=== PATIENT | male | born 1950 | race Caucasian/White ===

== ENCOUNTER 2017-03-15 10:00 | Outpatient (RCR) | payer MEDICARE, OTHER, SELFPAY ==
--- NOTE | 2017-02-25 09:26 | HP.PTEVAL ---
Patient's Visit Information DONNA COLEMAN is a 67 year old M referred to Physical Therapy by DO CHELSIE Mcnulty2 with a diagnosis of Back pain/Left knee pain. Date of Evaluation: 02/25/17 Physical Therapist: Camelia Duran - Visit Plan Frequency: 2-3x /Week Duration: 3 Weeks Plan: Focus on LE and core s/s. - Subjective Subjective: Patient reports right hip/back and left knee pain. Back/Hip has been bothering him about a year and half- insidious onset- Patient feels the pain is getting a little worse. The pain is located in the a little lower than the belt line- Agg: walking long distances. It comes and goes. Worst: 4/10 No Radiating pain- Describes pain as sharp/shooting at times. Eases: nothing that he is aware of. Best: 0/10. Once in awhile he will have numbness or feels like his right side gives out but that is rare. 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 Sleep: not disturbed- side mostly but does turn on his belly. Has had x-ray and MRI on the back in June. Knee: less than a year- insidious onset- knee seems to be getting a little worse. Worst: 4/10 Knee pain is above the joint stiffness. No radiating pain. Best: 0/10. Agg: walking long distances, getting up/down kneeling, stairs. Eases: get off of it. Describes dull achy pains. No N/T in the left side. X-rays which showed moderate OA. Sleep: occasionally will wake him up and is hard to get comfortable. Winter makes him mildly sedentary but plays golf 5-6x a week but has been riding a [employer]. PMHx: TIA (in June), knee scope but can't remember which one (10 years ago), eye surgery, HTN. Meds: HTN med, cholesterol medication. PMHx: was uploaded into the computer. Belongs to [facility]. - Objective Posture: FH, RS- can correct with verbal cues but does not maintain. Gait: no deviation noted. Stairs: no deviation asc/desc 8' recip no HR. HR/TR: able without incidence. SLS: 30 sec without LOB. ROM: WNL in all planes- no increase in s/s. Strength: Ankle: 5/5, Knee: 5/5 Hip: 4-/5 throughout Core: fair minus. Special Test: MICHAEL: positive, FADDIR: positive. Sensation/Reflex: WNL. Flex: HS: severe, Gastroc: moderate. Palpation: tender along medial/lateral joint line of the left knee, Greater troch and into the gluts on the right. - Goals Goal 1:: Patient will be I with HEP and progression Goal Time Frame: 4-6 Weeks Goal 2:: Patient will maintain proper posture t/o tx session to demo increased core s/s. Goal Time Frame: 4-6 Weeks Goal 3:: Patient will demo 5/5 strength in LE where deficit to ease ADL's. Goal Time Frame: 4-6 Weeks Goal 4:: Patient will demo moderate flexibility in all deficit areas Goal Time Frame: 4-6 Weeks - Rehabilitation Potential Physical Therapy Diagnosis: Patient presents with hypomobility- he has decreased strength and muscular endurance leading to poor posture and increased pain with ADL's. Rehabilitation Potential: Good - Anticipated Interventions Patient/Client Instruction: Educate patient on: Benefits of Fitness Program For the Purpose of:: To improve ability to perform ADL's Therapeutic Exercise to Include: Strength training, Endurance training, Balance training, Agility training, Body mechanics, Postural training, Flexibilty training, Passive ROM, Active ROM, Dynamic Lumbar Stabilization, Scapular Strength/Stabilization For the Purpose of:: To improve muscle performance and motor function TENS: Yes Cryotherapy (ice pack, ice massage): Yes Thermo therapy (hot pack): Yes Ultrasound (thermal/non thermal): Yes For the Purpose of:: To decrease pain Thank you for the opportunity to evaluate your patient. For Medicare and Medicare HMO plans, please review the plan of care and approve it. It will need to be FAXED BACK to us at [phone] for Medicare purposes. Please let me know if there are questions or concerns regarding this plan of care. Physician Signature: Date:
--- NOTE | 2017-03-15 10:34 | HP.PTDCSUM ---
HP - PT D/C Summary It has been my pleasure to treat DONNA COLEMAN under orders from Joaquín Benavides DO, for the diagnosis of Back pain/Left knee pain for a total of 9 visit(s). Discharge Date: Please see the following information for a summary of their discharge status. - Subjective Subjective: Patient reports the ROM in the knee is better and it doesn't hurt as much and the back has been pretty good. Feels that his knee is 80% better and the back is 80% better. Just feels stiff. - Pain Back Pain Intensity (Out of 10): 0 left knee Pain Intensity (Out of 10): 0 - Overall Improvement % Improvement: 80 - Objective Objective/Function: Posture: good throughout. Gait: no deviation noted. ROM: WFL in all planes. Stairs:asc/desc 8 recip with no HR. Strength: Core: fair plus, LE: 5/5 - Goals Goal 1:: Patient will be I with HEP and progression Goal Progress: Goal Met Goal 2:: Patient will maintain proper posture t/o tx session to demo increased core s/s. Goal Progress: Goal Met Goal 3:: Patient will demo 5/5 strength in LE where deficit to ease ADL's. Goal Progress: Goal Met Goal 4:: Patient will demo moderate flexibility in all deficit areas Goal Progress: Goal Met - Plan Plan: Cont with POC - D/C Information If there are questions or concerns regarding this patient's physical therapy, please feel free to call me at [phone]. Thank you for the referral of this patient. Sincerely, Camelia Duran
== END 2017-03-15 11:21 | disposition home or self-care (01) ==
LOC: PT 10:00
PROVIDERS: Family Provider Family Medicine; PCP Family Medicine; Visit Provider Family Medicine
DX: M25.562 Pain in left knee (principal); M54.5 Low back pain
CPT/HCPCS: 97110; 97162; 97530

== ENCOUNTER → 2017-04-29 08:59 | Outpatient (CLI) | payer MEDICARE, OTHER, SELFPAY ==
[2017-04-29 12:19] LABS: Absolute Lymphocyte Count 2.05 X10^3/ul (0.83-4.51); Absolute Neutrophil Count 3.1 X10^3/uL (2.0-7.7); Basophil# 0.02 X10^3/uL; Basophil% 0.3 % (0-1); Eosinophil# 0.13 X10^3/uL; Eosinophils% 2.2 % (0-5); Hematocrit 43.8 % (40-54); Hemoglobin 14.3 g/dl (13.0-16.5); Lymphocyte # 2.05 X10^3/ul (4.0); Lymphocyte % 34.6 % (19-41); Mean Corp Hgb Conc 32.6 g/gl (32-36); Mean Corpuscular Hgb 31.3 pg (27.0-32.0); Mean Corpuscular Volume 95.8 fL (80-94); Mean Platelet Vol. 12.3 fl (6.2-12.0); Monocyte# 0.53 X10^3/uL; Neutrophil # 3.14 X10^3/uL (2.7-7.7); Neutrophil % 53.1 % (47-70); Platelet Count 156 K/mm3 (150-450); RBC Distribution Width CV 12.1 % (11.6-14.6); RBC Distribution Width SD 42.5 fl (35.1-43.9); Red Blood Count 4.57 M/mm3 (4.6-6.2); White Blood Count 5.9 K/mm3 (4.4-11.0)
[2017-04-29 12:31] LABS: POSITIVE COUNT NO; POSITIVE DIFFERENTIAL NO; POSITIVE MORPHOLOGY NO
[2017-04-29 12:53] LABS: AST(SGOT) 41 U/L (15-37); Alanine Aminotransfer ALT/SGPT 51 U/L (16-61); Albumin, Serum 3.3 g/dL (3.2-5.0); Alkaline Phosphatase 47 U/L (45-117); Anion Gap 9 (5-15); BUN 14 mg/dL (7-18); BUN/Creat Ratio 11.9 RATIO (10-20); Calcium,Total 8.5 mg/dL (8.5-10.1); Chloride 105 mmol/L (98-107); Cholesterol 96 mg/dL (200); Creatinine, Serum 1.18 mg/dL (0.70-1.30); EST Glomerular Filtration Rate 65 mL/min (>60); Est Glom Filt Rate - Afr Amer 79 mL/min (>60); Globulin 3.4 g/dL (2.2-4.2); Glucose 100 mg/dL (74-106); High Density Lipoprotein 31 mg/dL; Potassium 4.3 mmol/L (3.5-5.1); Protein, Total 6.7 g/dL (6.4-8.2); Sodium Level 142 mmol/L (136-145); T4 Free Direct 1.38 ng/dL (0.76-1.46); Thyroid Stim Hormone (TSH) 2.39 uIU/mL (0.358-3.74); Triglycerides 106 mg/dL; Very Low Density Lipoprotein 21 mg/dL (5-40)
== END ==
PROVIDERS: Family Provider Family Medicine; PCP Family Medicine; Visit Provider Family Medicine
DX: I10 Essential (primary) hypertension (principal); E07.9 Disorder of thyroid, unspecified; E78.5 Hyperlipidemia, unspecified; R53.83 Other fatigue; Z51.81 Encounter for therapeutic drug level monitoring
CPT/HCPCS: 36415; 80053; 80061; 84439; 84443; 85025

== ENCOUNTER 2017-10-27 14:50 | Observation (INO) | payer MEDICARE, OTHER, SELFPAY ==
[2017-10-27] VITALS (18 sets, daily range): BP systolic 132–180; BP diastolic 72–91; PULSE 56–85; RESP 14–155; TEMP 36.7–36.8; O2SAT 93–98; BMI 32.0; BMI 30.2; BMI 30.3
--- NOTE | 2017-10-27 15:08 | EKG12_ITS ---
Test Reason : Blood Pressure : / mmHG Vent. Rate : 074 BPM Atrial Rate : 074 BPM P-R Int : 188 ms QRS Dur : 112 ms QT Int : 394 ms P-R-T Axes : 042 001 038 degrees QTc Int : 437 ms Normal sinus rhythm Incomplete right bundle branch block Abnormal ECG Confirmed by DIVINA URRUTIA, MEGA ([id number]), electronic news gathering editor SHALOM HUGHES ([id number]) on 10/30/2017 2:35:28 PM Referred By: Emily Ramirez Confirmed By:MEGA MURCIA MD
--- NOTE | 2017-10-27 15:08 | RAD_ITS ---
STUDY: X-RAY CHEST REASON FOR EXAM: Male, 67 years old. Numbness TECHNIQUE: Frontal view of the chest COMPARISON: None. FINDINGS: The lungs are clear. There are no pleural effusions. There is no pneumothorax. The heart is normal in size. The visualized osseous structures are within normal limits. RAD/Chest 1 View IMPRESSION: No acute thoracic pathology. Electronically Signed: Silvano Sullivan, at 16:44 EDT Tel , Service support ,
--- NOTE | 2017-10-27 15:08 | CT_ITS ---
STUDY: CT BRAIN WITHOUT CONTRAST REASON FOR EXAM: Male, 67 years old. Dizziness. RADIATION DOSAGE (If Supplied By Facility): CTDIvol = ( 44.99 ) mGy, DLP = ( 812.98 ) mGycm TECHNIQUE: Transaxial CT imaging of the brain was performed without administration of intravenous contrast material. Individualized dose optimization techniques were used for this CT. COMPARISON: 07/03/2016 FINDINGS: There is no acute bleed or infarct. There are stable chronic ischemic and atrophic changes. The ventricles are normal in configuration. There is no hydrocephalus. The visualized paranasal sinuses are clear. The mastoid air cells are well aerated. There is no skull fracture. CT/Brain/Head without Contrast IMPRESSION: Stable chronic ischemic and atrophic changes. No acute intracranial abnormality. Electronically Signed: Silvano Sullivan, at 16:09 EDT Tel , Service support ,
[2017-10-27 15:11] LABS: Bedside Glucose 144 mg/dL (70-110)
--- NOTE | 2017-10-27 15:17 | ED.VISSUMM ---
- ER Visit Summary Date of Service: 10/27/17 Chief Complaint: [Numbness and tingling to right arm] History of Present Illness: The patient is a 67 M [presents the emergency department with symptoms that started approximately 35 minutes prior to arrival in the department. Patient states that he had just finished playing golf and was eating lunch when he started feeling like he was hearing an echo in his head when he would speak. Patient noted that his left arm was numb and tingly but did not notice any weakness. There is no paresthesias of his face or lower extremities. Patient states that he felt slightly nauseated and became diaphoretic. Patient is concerned because about a year ago he had TIAs. He denies any headache. He denies any falls or head injuries. He denies any alcohol intake. Patient states currently feels much improved and his symptoms have resolved. Patient states he has had a little bit of a cold over the last for 5 days. Patient has been taking some zinc.] Physical Examination: [HEENT-PERRLA, EOMI. Cranial nerves II through XII grossly intact. TMs clear. Mucous membranes moist. No adenopathy. Cardiovascular-regular rate and rhythm without murmur or ectopy Lungs-clear to auscultation, chest wall stable without crepitus or subcu emphysema Abdomen-normoactive bowel sounds, soft, nontender, no rebound or rigidity, no peritoneal signs. Neuro ehfa-[id number]-wsws and heel pizano testing within normal limits, negative Romberg, negative pronator, fundi benign. NIH stroke scale was 0. Extremities-intact ?4, normal range of motion, normal pulses, atraumatic] Test Results: [EKG obtained on arrival showed a sinus rhythm with a ventricular rate of 74 bpm with no acute ST segment changes. CBC with her showing of 8.1, hemoglobin 14.8, hematocrit 43, platelets 154. Chemistries unremarkable. INR was 1.0 and PTT was 29.9. Troponin was less than 0.015. CT scan of the brain showed some chronic ischemic changes otherwise nothing acute. CTA of the head and neck showed nothing acute.] Emergency Department Course and Treatment: [Patient case was discussed with was on-call for neurology. Patient is not a TPA candidate as symptoms have resolved and his NIH stroke scale is 0. Patient case discussed with hospitalist will evaluate patient for admission] Treatment Plan: [Admit for further workup and evaluation] Disposition: [Admit] Impression: [TIA] This note was generated with [employer] dictation software. It may contain incorrect words, spelling, and punctuation that were not noted in review of the chart prior to signing ED Disposition - Plan for ED Patient: Chief Complaint: Numb/Ting Referrals: Liseth Del Valle DO [Primary Care Provider] -
--- NOTE | 2017-10-27 15:30 | CT_ITS ---
STUDY: CTA NECK WITH CONTRAST REASON FOR EXAM: Male, 67 years old. Dizziness. RADIATION DOSAGE (If Supplied By Facility): CTDIvol = ( 21.08 ) mGy, DLP = ( 691.93 ) mGycm TECHNIQUE: CT angiography with multi-detector data acquisition was performed from the aortic arch to the skull base following intravenous administration of 100 ml of Isovue 370 contrast. MIP images were reconstructed from the axial data set. Post-processing of the angiographic images was performed, with multiplanar reformation and 3D reconstruction. Individualized dose optimization techniques were used for this CT. COMPARISON: CTA 07/03/2016. CT head 10/27/2017. FINDINGS: AORTIC ARCH: Normal visualized aortic arch. Normal origins of the brachiocephalic, left common carotid, and left subclavian arteries. RIGHT CAROTID ARTERIES: Normal right common carotid artery (CCA). Normal right common carotid bulb. Normal origin of the right internal carotid (ICA) artery without a hemodynamically significant stenosis. Normal visualized cervical portion of the right internal carotid artery. Normal origin of the right external carotid artery (ECA). LEFT CAROTID ARTERIES: Normal left common carotid artery (CCA). There is mild atherosclerotic plaque formation without narrowing of the left carotid bulb. Normal origin of the left internal carotid (ICA) artery without a hemodynamically significant stenosis. Normal visualized cervical portion of the left internal carotid artery. Normal origin of the left external carotid artery (ECA). VERTEBRAL ARTERIES: There is a right dominant vertebral artery. Vertebral arteries are patent bilaterally, with no dissection, stenosis, or occlusion. IMPRESSION: 1. Mild atherosclerotic plaque of the left carotid bulb. No stenosis. 2. Patent vertebral and carotid arteries with no dissection, stenosis or occlusion. Electronically Signed: Rosmery Lira MD at 17:34 EDT Tel , Service support , STUDY: CTA OF THE BRAIN REASON FOR EXAM: Male, 67 years old. Dizziness. RADIATION DOSAGE (If Supplied By Facility): CTDIvol = ( ) mGy, DLP = ( ) mGycm TECHNIQUE: CT angiography was performed with a multi-detector CT scanner. Data acquisition was obtained from the skull base through the vertex following intravenous administration of ml of . MIP images were reconstructed from the axial data set. Post-processing of the angiographic images was performed, with multiplanar reformation and 3D reconstruction. Individualized dose optimization techniques were used for this CT. COMPARISON: None. FINDINGS: Normal bilateral petrous carotid arteries. There is calcified plaque formation of the right cavernous carotid artery, without a cross-sectional luminal stenosis. Normal left cavernous carotid artery with a normal supraclinoid bifurcation. Normal right A1 segment of the anterior cerebral artery. Normal left A1 segment of the anterior cerebral artery. Normal intact anterior communicating artery (ACOM). Normal bilateral A2 segments of the anterior cerebral arteries. Normal right M1 and M2 segments of the middle cerebral arteries, with a normal M1 bifurcation. Normal left M1 and M2 segments of the middle cerebral arteries, with a normal M1 bifurcation. There is non-visualization of the right posterior communicating artery (PCOM). Normal left posterior communicating artery (PCOM). Dominant right vertebral artery. Left vertebral artery terminates in the posterior inferior cerebellar artery. Normal basilar artery with a normal basilar bifurcation. The visualized bilateral superior cerebellar (SCA) arteries are normal. Normal bilateral P1, P2 and visualized P3 segments of the posterior cerebral arteries. There is no demonstrated aneurysm of the [place] of [place]. CT/CTA Neck W/WO Contrast IMPRESSION: No demonstrated aneurysm or significant stenosis. Electronically Signed: Rosmery Lira MD at 17:36 EDT Tel , Service support ,
--- NOTE | 2017-10-27 15:30 | CT_ITS ---
STUDY: CTA OF THE BRAIN REASON FOR EXAM: Male, 67 years old. Dizziness RADIATION DOSAGE (If Supplied By Facility): CTDIvol = ( 21.08 ) mGy, DLP = ( 691.93 ) mGycm TECHNIQUE: CT angiography was performed with a multi-detector CT scanner. Data acquisition was obtained from the skull base through the vertex following intravenous administration of 100 ml of Isovue-370. MIP images were reconstructed from the axial data set. Post-processing of the angiographic images was performed, with multiplanar reformation and 3D reconstruction. Individualized dose optimization techniques were used for this CT. COMPARISON: None. FINDINGS: Normal bilateral petrous carotid arteries. Normal right cavernous carotid artery with a normal supraclinoid bifurcation. Normal left cavernous carotid artery with a normal supraclinoid bifurcation. Normal right A1 segments of the anterior cerebral artery. Normal left A1 segments of the anterior cerebral artery. Normal intact anterior communicating artery (ACOM). Normal bilateral A2 segments of the anterior cerebral arteries. Normal right M1 and M2 segments of the middle cerebral arteries, with a normal M1 bifurcation. Normal left M1 and M2 segments of the middle cerebral arteries, with a normal M1 bifurcation. Normal right posterior communicating artery (PCOM). Normal left posterior communicating artery (PCOM). Normal bilateral vertebral arteries. Normal basilar artery with a normal basilar bifurcation. The visualized bilateral superior cerebellar (SCA) arteries are normal. Normal bilateral P1, P2 and visualized P3 segments of the posterior cerebral arteries. There is no demonstrated aneurysm of the [place] of [place]. There is no demonstrated abnormality of the visualized brain. CT/CTA Head W/WO Contrast IMPRESSION: Normal [place] of [place] without a demonstrated aneurysm or hemodynamically significant stenosis. Electronically Signed: Parker Mancuso MD at 16:41 EDT , Service support ,
[2017-10-27 15:33] LABS: Absolute Lymphocyte Count 1.89 X10^3/ul (0.83-4.51); Absolute Neutrophil Count 5.7 X10^3/uL (2.0-7.7); Basophil# 0.02 X10^3/uL; Basophil% 0.2 % (0-1); Eosinophil# 0.02 X10^3/uL; Eosinophils% 0.2 % (0-5); Hematocrit 42.8 % (40-54); Hemoglobin 14.8 g/dl (13.0-16.5); Lymphocyte # 1.89 X10^3/ul (4.0); Lymphocyte % 23.3 % (19-41); Mean Corp Hgb Conc 34.6 g/gl (32-36); Mean Corpuscular Hgb 32.5 pg (27.0-32.0); Mean Corpuscular Volume 93.9 fL (80-94); Mean Platelet Vol. 11.1 fl (6.2-12.0); Monocyte# 0.46 X10^3/uL; Monocyte% 5.7 % (0-10); Neutrophil % 70.4 % (47-70); POSITIVE COUNT NO; POSITIVE DIFFERENTIAL NO; POSITIVE MORPHOLOGY NO; Platelet Count 154 K/mm3 (150-450); RBC Distribution Width CV 12.1 % (11.6-14.6); RBC Distribution Width SD 41.1 fl (35.1-43.9); Red Blood Count 4.56 M/mm3 (4.6-6.2); White Blood Count 8.1 K/mm3 (4.4-11.0)
[2017-10-27 15:41] LABS: Anion Gap 9 (5-15); BUN 25 mg/dL (7-18); BUN/Creat Ratio 20.5 RATIO (10-20); Calcium,Total 8.5 mg/dL (8.5-10.1); Chloride 109 mmol/L (98-107); Creatinine, Serum 1.22 mg/dL (0.70-1.30); EST Glomerular Filtration Rate 63 mL/min (>60); Est Glom Filt Rate - Afr Amer 76 mL/min (>60); Estimated Creatinine Clearance 64.49 ml/min; Glucose 139 mg/dL (74-106); Potassium 4.1 mmol/L (3.5-5.1); Prothrombin Time (Protime)PT. 13.5 SECONDS (11.7-14.9); Sodium Level 142 mmol/L (136-145)
[2017-10-27 15:42] LABS: Partial Thromboplast Time 29.9 Seconds (24.1-36.2)
--- NOTE | 2017-10-27 19:09 | PCM.HP.STD ---
Problem List (1) TIA (transient ischemic attack) Status: Acute Qualifiers: Transient cerebral ischemia type: unspecified Qualified Code(s): G45.9 - Transient cerebral ischemic attack, unspecified (2) HLD (hyperlipidemia) Status: Chronic Qualifiers: Hyperlipidemia type: pure hypercholesterolemia Qualified Code(s): E78.00 - Pure hypercholesterolemia, unspecified; E78.0 - Pure hypercholesterolemia (3) Hypothyroidism Status: Chronic Qualifiers: Hypothyroidism type: acquired Qualified Code(s): E03.9 - Hypothyroidism, unspecified (4) CVA (cerebral vascular accident) Status: Chronic Qualifiers: Laterality of affected vessel: unspecified Comment: MRI brain 07/03/16 with focal subcortical acute infarcts within the high right frontal border zone region and the left posterior border zone region abutting the central sulcus likely within the central gyrus. (5) HTN (hypertension) Status: Chronic Qualifiers: Hypertension type: essential hypertension Qualified Code(s): I10 - Essential (primary) hypertension History of Present Illness Date of Admission: 10/27/17 Chief Complaint: RUE paresthesias The patient is a 67 y/o M w/ PMHx: HTN, HLD, Hypothyroidism, Obesity, Prior CVA (MRI brain 07/03/16 with focal subcortical acute infarcts within the high right frontal border zone region and the left posterior border zone region abutting the central sulcus likely within the central gyrus) who presents to the [facility] ED on 10/27/17 with history of golfing through the day, sitting down to lunch at ~ 14:30 with onset at that time of sensation of echoing of his voice in his head when he spoke with following onset right upper extremity numbness, diaphoresis and nausea which last approximately 25 minutes and resolved upon ED presentation. is present in the emergency room and noted that with onset of these findings he was also very pale. She notes that he appears to currently be at his baseline. The emergency room workup included T 98.2, heart rate 76, BP 151/80, respiratory rate 18, 96% on room air, unremarkable CBC, unremarkable coags, BMP with chloride 109, BUN/creatinine 25 1.22, glucose 139, last hemoglobin A1c noted 07/03/16 5.7%, troponin less than 0.015, EKG with no acute findings, ET head with stable chronic ischemic and atrophic changes with no acute findings on chest x-ray with no acute findings, CTA head with normal [place] of [place] without any demonstrated aneurysm or significant stenosis, CT of the neck with no demonstrated aneurysm or significant stenosis. Neurology was consulted per the emergency room and had requested CTA head and neck to be obtained. Past Medical History Past Medical History (Chronic Problems): Chronic Problems HLD (hyperlipidemia) (Chronic) Hypothyroidism (Chronic) CVA (cerebral vascular accident) (Chronic) MRI brain 07/03/16 with focal subcortical acute infarcts within the high right frontal border zone region and the left posterior border zone region abutting the central sulcus likely within the central gyrus. HTN (hypertension) (Chronic) Allergies Sulfa (Sulfonamide Antibiotics) Allergy (Verified 10/27/17 14:53) PT CAN'T REMEMBER Home Medications: Ambulatory Orders Medication Instructions Recorded Levothyroxine [Synthroid] 175 mcg PO DAILY 07/03/16 Triamcinolone 0.1% Ointment 1 applic TOPICAL DAILY 07/03/16 [Kenalog] Amlodipine [Norvasc] 5 mg PO DAILY #90 tablet 07/05/16 Aspirin [Aspirin, Baby] 81 mg PO DAILY@0800 #90 tab.chew 07/05/16 Atorvastatin Calcium [Lipitor] 40 mg PO DAILY #90 tablet 07/05/16 Surgical History: - - Arthroscopic knee surgery, left eye muscle surgery, Lasix eye surgery, bilateral carpal tunnel surgery, tonsillectomy. Psychiatric History: No pertinent psych hx Lives: Spouse/ Significant Other Smoking Status: Never smoker Tobacco Use: Non-smoker Alcohol: None Drugs: None - *Family History Maternal History Items: Cancer, Stroke Paternal History Items: Heart Disease Sibling History Items: Heart Disease - Brother of [place] Review of Systems Constitutional: Denies: Chills, Fever, Weight Change HEENT: Denies: Head Aches, Sinus Congestion, Sinus Drainage Cardiovascular: Denies: Chest Pain, Palpitations Respiratory: Denies: Cough, Shortness of breath at rest, Sputum production Gastrointestinal: Denies: Abdominal Pain, Nausea, Vomiting Genitourinary: Denies: Dysuria Musculoskeletal: Denies: Joint Pain, Joint Tenderness Skin: Denies: Rash, Wounds Neurological: Reports: Numbness, Tingling. Denies: Focal weakness Psychiatric: Denies: Anxiety, Depression, Homicidal Ideations, Suicidal Ideations Hematologic/ Lymphatic: Denies: Easy Bruising, Easy Bleeding VTE Information - Inpt Only VTE Present on Admission: No VTE Mechan Device Prophylaxis: SCD's VTE Pharm Prophylaxis ordered?: Yes Subjective: Seated upright in ED bed, no acute distress, notes complete continued resolution of prior symptoms. Objective: Physical Examination: General: awake, alert, oriented x 3 and cooperative, seated upright in the ED bed in no apparent distress. Skin: normal color, turgor, no icterus, cyanosis. HEENT: AT/NC, EOMI, PERRLA, MMM, no carotid bruits or JVD noted. Lungs: CTA bilaterally, moderate effort, mild decrease BL bases, no rales, ronchi or wheezing. Heart: regular rate and rhythm; no gallop, rub audible. Abdomen: soft, obese, NTTP, ND, normal BS, no HSM. Extremities: no cyanosis, clubbing, or edema. Neurological: patient awake, alert, oriented x 3; cognitive function intact; pupils equally reactive to light and accomodation; cranial nerves II-XII grossly normal, moving all 4 extremities, no focal deficits, strength preserved, negative Babinski, sensation intact, FTN and HTN appropriate. Psychiatric: affect appears normal, no acute evidence of depressive or anxiety feelings. - Physical Exam Vital Signs Temp Pulse Resp BP Pulse Ox 98.2 F 71 155 H 142/86 H 94 10/27/17 14:54 10/27/17 18:33 10/27/17 18:33 10/27/17 18:33 10/27/17 18:33 Oxygen Delivery Method Room Air Weight: 236 lb 5.369 oz Body Mass Index (BMI) 32.0 Finger Stick Blood Glucose 144 Laboratory Tests Past 24 Hrs 10/27/17 10/27/17 10/27/17 15:01 15:01 15:01 WBC 8.1 RBC 4.56 L Hgb 14.8 Hct 42.8 MCV 93.9 MCH 32.5 H MCHC 34.6 RDW 12.1 RDW Differential 41.1 Plt Count 154 MPV 11.1 Immature Gran % (Auto) 0.200 Neut % (Auto) 70.4 H Lymph % (Auto) 23.3 Payette % (Auto) 5.7 Eos % (Auto) 0.2 Baso % (Auto) 0.2 Absolute Neuts (auto) 5.7 Absolute Lymphs (auto) 1.89 Total Counted Not Reportable PT 13.5 INR 1.0 APTT 29.9 Sodium 142 Potassium 4.1 Chloride 109 H Carbon Dioxide 24.0 Anion Gap 9 BUN 25 H Creatinine 1.22 Estim Creat Clear Calc 64.49 Est GFR (MDRD) Af Amer 76 Est GFR (MDRD) Non-Af 63 BUN/Creatinine Ratio 20.5 H Glucose 139 H Calcium 8.5 Troponin I < 0.015 POC Glucose 10/27/17 15:04 POC Glucose 144 H Assessment/Plan All Active Problems TIA (transient ischemic attack) (Acute) The patient is a 67 y/o M w/ PMHx: HTN, HLD, Hypothyroidism, Obesity, Prior CVA (MRI brain 07/03/16 with focal subcortical acute infarcts within the high right frontal border zone region and the left posterior border zone region abutting the central sulcus likely within the central gyrus) who presents to the [facility] ED on 10/27/17 with history of golfing through the day, sitting down to lunch at ~ 14:30 with onset at that time of sensation of echoing of his voice in his head when he spoke with following onset right upper extremity numbness, diaphoresis and nausea which last approximately 25 minutes and resolved upon ED presentation. (1) RUE Paresthesias, Transient w/ Abnormal Echoing in his brain concerning for TIA/CVA: ED workup included T 98.2, heart rate 76, BP 151/80, respiratory rate 18, 96% on room air, unremarkable CBC, unremarkable coags, BMP with chloride 109, BUN/creatinine 25 1.22, glucose 139, last hemoglobin A1c noted 07/03/16 5.7%, troponin less than 0.015, EKG with no acute findings, ET head with stable chronic ischemic and atrophic changes with no acute findings on chest x-ray with no acute findings, CTA head with normal [place] of [place] without any demonstrated aneurysm or significant stenosis, CT of the neck with no demonstrated aneurysm or significant stenosis. Will admit to PCU, will obtain MRI Brain, request repeat ECHO as performed year prior, PT/OT/Speech/Nutrition evaluation per protocol. Will continue consult Neurology for evaluation. Given resolution of sxs, continue HTN regimenallow permissive HTN, maintain on asa and add plavix, continue statin w/ AM FLP, fall precautions. TSH and mag pending. Additionally given atypical presentation, will obtain repeat EKG in AM, cycle cardiac enzymes. (2) Hypothyroidism: Continue home synthroid regimen, TSH pending. 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 (3) Hypertension: Continue home regimen including Norvasc, PRN hydralazine. (4) Hyperlipidemia: Continue home statin regimen. AM FLP. (5) Obesity: Weight loss and lifestyle changes encouraged. (6) DVT prophylaxis: SCD, Lovenox. Code Visit OBSV E&M: 24805 Initial observation care L3
--- NOTE | 2017-10-27 19:14 | HP.PCM_ITS ---
Problem List (1) TIA (transient ischemic attack) Status: Acute Qualifiers: Transient cerebral ischemia type: unspecified Qualified Code(s): G45.9 - Transient cerebral ischemic attack, unspecified (2) HLD (hyperlipidemia) Status: Chronic Qualifiers: Hyperlipidemia type: pure hypercholesterolemia Qualified Code(s): E78.00 - Pure hypercholesterolemia, unspecified; E78.0 - Pure hypercholesterolemia (3) Hypothyroidism Status: Chronic Qualifiers: Hypothyroidism type: acquired Qualified Code(s): E03.9 - Hypothyroidism, unspecified (4) CVA (cerebral vascular accident) Status: Chronic Qualifiers: Laterality of affected vessel: unspecified Comment: MRI brain 07/03/16 with focal subcortical acute infarcts within the high right frontal border zone region and the left posterior border zone region abutting the central sulcus likely within the central gyrus. (5) HTN (hypertension) Status: Chronic Qualifiers: Hypertension type: essential hypertension Qualified Code(s): I10 - Essential (primary) hypertension History of Present Illness Date of Admission: 10/27/17 Chief Complaint: RUE paresthesias The patient is a 67 y/o M w/ PMHx: HTN, HLD, Hypothyroidism, Obesity, Prior CVA (MRI brain 07/03/16 with focal subcortical acute infarcts within the high right frontal border zone region and the left posterior border zone region abutting the central sulcus likely within the central gyrus) who presents to the [facility] ED on 10/27/17 with history of golfing through the day, sitting down to lunch at ~ 14:30 with onset at that time of sensation of echoing of his voice in his head when he spoke with following onset right upper extremity numbness, diaphoresis and nausea which last approximately 25 minutes and resolved upon ED presentation. is present in the emergency room and noted that with onset of these findings he was also very pale. She notes that he appears to currently be at his baseline. The emergency room workup included T 98.2, heart rate 76, BP 151/80, respiratory rate 18, 96% on room air, unremarkable CBC, unremarkable coags, BMP with chloride 109, BUN/creatinine 25 1.22, glucose 139, last hemoglobin A1c noted 07/03/16 5.7%, troponin less than 0.015, EKG with no acute findings, ET head with stable chronic ischemic and atrophic changes with no acute findings on chest x-ray with no acute findings, CTA head with normal [place] without any demonstrated aneurysm or significant stenosis, CT of the neck with no demonstrated aneurysm or significant stenosis. Neurology was consulted per the emergency room and had requested CTA head and neck to be obtained. Past Medical History Past Medical History (Chronic Problems): Chronic Problems HLD (hyperlipidemia) (Chronic) Hypothyroidism (Chronic) CVA (cerebral vascular accident) (Chronic) MRI brain 07/03/16 with focal subcortical acute infarcts within the high right frontal border zone region and the left posterior border zone region abutting the central sulcus likely within the central gyrus. HTN (hypertension) (Chronic) Allergies Sulfa (Sulfonamide Antibiotics) Allergy (Verified 10/27/17 14:53) PT CAN'T REMEMBER Home Medications: Ambulatory Orders Medication Instructions Recorded Levothyroxine [Synthroid] 175 mcg PO DAILY 07/03/16 Triamcinolone 0.1% Ointment 1 applic TOPICAL DAILY 07/03/16 [Kenalog] Amlodipine [Norvasc] 5 mg PO DAILY #90 tablet 07/05/16 Aspirin [Aspirin, Baby] 81 mg PO DAILY@0800 #90 tab.chew 07/05/16 Atorvastatin Calcium [Lipitor] 40 mg PO DAILY #90 tablet 07/05/16 Surgical History: - - Arthroscopic knee surgery, left eye muscle surgery, Lasix eye surgery, bilateral carpal tunnel surgery, tonsillectomy. Psychiatric History: No pertinent psych hx Lives: Spouse/ Significant Other Smoking Status: Never smoker Tobacco Use: Non-smoker Alcohol: None Drugs: None - *Family History Maternal History Items: Cancer, Stroke Paternal History Items: Heart Disease Sibling History Items: Heart Disease - Brother of [place] Review of Systems Constitutional: Denies: Chills, Fever, Weight Change HEENT: Denies: Head Aches, Sinus Congestion, Sinus Drainage Cardiovascular: Denies: Chest Pain, Palpitations Respiratory: Denies: Cough, Shortness of breath at rest, Sputum production Gastrointestinal: Denies: Abdominal Pain, Nausea, Vomiting Genitourinary: Denies: Dysuria Musculoskeletal: Denies: Joint Pain, Joint Tenderness Skin: Denies: Rash, Wounds Neurological: Reports: Numbness, Tingling. Denies: Focal weakness Psychiatric: Denies: Anxiety, Depression, Homicidal Ideations, Suicidal Ideations Hematologic/ Lymphatic: Denies: Easy Bruising, Easy Bleeding VTE Information - Inpt Only VTE Present on Admission: No VTE Mechan Device Prophylaxis: SCD's VTE Pharm Prophylaxis ordered?: Yes Subjective: Seated upright in ED bed, no acute distress, notes complete continued resolution of prior symptoms. Objective: Physical Examination: General: awake, alert, oriented x 3 and cooperative, seated upright in the ED bed in no apparent distress. Skin: normal color, turgor, no icterus, cyanosis. HEENT: AT/NC, EOMI, PERRLA, MMM, no carotid bruits or JVD noted. Lungs: CTA bilaterally, moderate effort, mild decrease BL bases, no rales, ronchi or wheezing. Heart: regular rate and rhythm; no gallop, rub audible. Abdomen: soft, obese, NTTP, ND, normal BS, no HSM. Extremities: no cyanosis, clubbing, or edema. Neurological: patient awake, alert, oriented x 3; cognitive function intact; pupils equally reactive to light and accomodation; cranial nerves II-XII grossly normal, moving all 4 extremities, no focal deficits, strength preserved , negative Babinski, sensation intact, FTN and HTN appropriate. Psychiatric: affect appears normal, no acute evidence of depressive or anxiety feelings. - Physical Exam Vital Signs Temp Pulse Resp BP Pulse Ox 98.2 F 71 155 H 142/86 H 94 10/27/17 14:54 10/27/17 18:33 10/27/17 18:33 10/27/17 18:33 10/27/17 18:33 Oxygen Delivery Method Room Air Weight: 236 lb 5.369 oz Body Mass Index (BMI) 32.0 Finger Stick Blood Glucose 144 Laboratory Tests Past 24 Hrs 10/27/17 10/27/17 10/27/17 15:01 15:01 15:01 WBC 8.1 RBC 4.56 L Hgb 14.8 Hct 42.8 MCV 93.9 MCH 32.5 H MCHC 34.6 RDW 12.1 RDW Differential 41.1 Plt Count 154 MPV 11.1 Immature Gran % (Auto) 0.200 Neut % (Auto) 70.4 H Lymph % (Auto) 23.3 Dane % (Auto) 5.7 Eos % (Auto) 0.2 Baso % (Auto) 0.2 Absolute Neuts (auto) 5.7 Absolute Lymphs (auto) 1.89 Total Counted Not Reportable PT 13.5 INR 1.0 APTT 29.9 Sodium 142 Potassium 4.1 Chloride 109 H Carbon Dioxide 24.0 Anion Gap 9 BUN 25 H Creatinine 1.22 Estim Creat Clear Calc 64.49 Est GFR (MDRD) Af Amer 76 Est GFR (MDRD) Non-Af 63 BUN/Creatinine Ratio 20.5 H Glucose 139 H Calcium 8.5 Troponin I < 0.015 POC Glucose 10/27/17 15:04 POC Glucose 144 H Assessment/Plan All Active Problems TIA (transient ischemic attack) (Acute) The patient is a 67 y/o M w/ PMHx: HTN, HLD, Hypothyroidism, Obesity, Prior CVA (MRI brain 07/03/16 with focal subcortical acute infarcts within the high right frontal border zone region and the left posterior border zone region abutting the central sulcus likely within the central gyrus) who presents to the [facility] ED on 10/27/17 with history of golfing through the day, sitting down to lunch at ~ 14:30 with onset at that time of sensation of echoing of his voice in his head when he spoke with following onset right upper extremity numbness, diaphoresis and nausea which last approximately 25 minutes and resolved upon ED presentation. (1) RUE Paresthesias, Transient w/ Abnormal Echoing in his brain concerning for TIA/CVA: ED workup included T 98.2, heart rate 76, BP 151/80, respiratory rate 18, 96% on room air, unremarkable CBC, unremarkable coags, BMP with chloride 109, BUN/creatinine 25 1.22, glucose 139, last hemoglobin A1c noted 5.7%, troponin less than 0.015, EKG with no acute findings, ET head with stable chronic ischemic and atrophic changes with no acute findings on chest x- ray with no acute findings, CTA head with normal [place] without any demonstrated aneurysm or significant stenosis, CT of the neck with no demonstrated aneurysm or significant stenosis. Will admit to PCU, will obtain MRI Brain, request repeat ECHO as performed year prior, PT/OT/Speech/Nutrition evaluation per protocol. Will continue consult Neurology for evaluation. Given resolution of sxs, continue HTN regimenallow permissive HTN, maintain on asa and add plavix, continue statin w/ AM FLP, fall precautions. TSH and mag pending. Additionally given atypical presentation, will obtain repeat EKG in AM , cycle cardiac enzymes. (2) Hypothyroidism: Continue home synthroid regimen, TSH pending. 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 (3) Hypertension: Continue home regimen including Norvasc, PRN hydralazine. (4) Hyperlipidemia: Continue home statin regimen. AM FLP. (5) Obesity: Weight loss and lifestyle changes encouraged. (6) DVT prophylaxis: SCD, Lovenox. Code Visit OBSV E&M: [id number] Initial observation care L3
--- NOTE | 2017-10-27 19:29 | ECHOD_ITS ---
Reason For Study: TIA/CVA Procedure This was a 2D Doppler, Color Flow transthoracic echocardiogram. Exam performed portable in patient room. Left Ventricle Normal LV size. Moderate eccentric left ventricular hypertrophy. Left ventricular systolic function is normal. The estimated ejection fraction is 60 %. Stage 1 diastolic dysfunction. No regional wall motion abnormalities noted. Right Ventricle Normal RV size. Normal systolic function. Atria The left atrium is moderately enlarged. Normal right atrium. Mitral Valve Normal mitral valve. Tricuspid Valve Normal tricuspid valve. Mild tricuspid valve insufficiency. Pulmonary artery systolic pressure is 28 mmHg. Aortic Valve Normal aortic valve. Pulmonic Valve Normal pulmonic valve. Great Vessels Normal aortic root. The pulmonary artery is normal size. Normal inferior vena cava. Pericardium/Pleural No pericardial effusion. MMode/2D Measurements & Calculations LVIDd: 5.3 cm IVSd: 2.1 cm Ao root diam: 3.9 cm LVIDs: 3.5 cm LVPWd: 1.2 cm LA dimension: 4.5 cm RVDd: 3.7 cm FS: 34.4 % LAV(MOD-bp): 94.4 ml LA A4 area: 25.1 cm2 RA A4 area: 19.2 cm2 LAV(MOD-bp) Indexed: 42.3 ml/m2 LAV(MOD-sp2): 97.4 ml LAV(MOD-sp4): 88.3 ml Doppler Measurements & Calculations MV E max wenceslao: 65.5 cm/sec Lat Peak E' Wenceslao: 7.7 cm/sec Med Peak E' Wenceslao: 6.5 cm/sec MV A max wenceslao: 72.6 cm/sec E/E' lat: 8.5 E/E' med: 10.1 MV E/A: 0.90 Ao V2 max: 151.1 cm/sec LV V1 max: 136.4 cm/sec PA V2 max: 100.8 cm/sec Ao max P.1 mmHg LV V1 max P.5 mmHg TR max wenceslao: 249.1 cm/sec TR max P.8 mmHg Interpretation Summary Normal LV size. Left ventricular systolic function is normal. The estimated ejection fraction is 60 %. Stage 1 diastolic dysfunction. Mild tricuspid valve insufficiency. Ordering Physician: Emily Ramirez Referring Physician: Liseth Del Valle Performed By: Jesenia Sanches, QING, RVT
[2017-10-27] MEDS: 0.9% Normal Saline 1,000 ML 100 ML IV (19:58)
[2017-10-27 20:54] LABS: Magnesium 2.1 mg/dL (1.6-2.6); T4 Free Direct 1.39 ng/dL (0.76-1.46); Thyroid Stim Hormone (TSH) 0.12 uIU/mL (0.358-3.74)
[2017-10-27] MEDS: Famotidine 20 MG Tablet PO (22:27)
[2017-10-28] VITALS (11 sets, daily range): BP systolic 133–154; BP diastolic 69–87; PULSE 47–64; RESP 16; TEMP 36.6–36.9; O2SAT 94–97; BMI 30.2
--- NOTE | 2017-10-28 05:55 | EKG12_ITS ---
Test Reason : AM EKG Blood Pressure : / mmHG Vent. Rate : 056 BPM Atrial Rate : 056 BPM P-R Int : 210 ms QRS Dur : 114 ms QT Int : 420 ms P-R-T Axes : 041 000 053 degrees QTc Int : 405 ms Sinus bradycardia with 1st degree A-V block Otherwise normal ECG When compared with ECG of 27-OCT-2017 15:04, MANUAL COMPARISON REQUIRED, DATA IS UNCONFIRMED Confirmed by DARRON URRUTIA, SENG ([id number]), sound editor SHALOM HUGHES ([id number]) on 10/30/2017 3:24:10 PM Referred By: Emily Ramirez Confirmed By:SENG ROB MD
[2017-10-28] MEDS: Levothyroxine 100 MCG Tablet PO (06:14)
[2017-10-28] MEDS: Levothyroxine 88 MCG Tablet PO (06:14)
[2017-10-28 06:38] LABS: Absolute Lymphocyte Count 2.03 X10^3/ul (0.83-4.51); Absolute Neutrophil Count 3.9 X10^3/uL (2.0-7.7); Basophil# 0.02 X10^3/uL; Basophil% 0.3 % (0-1); Eosinophil# 0.13 X10^3/uL; Hematocrit 41.8 % (40-54); Hemoglobin 14.2 g/dl (13.0-16.5); Lymphocyte # 2.03 X10^3/ul (4.0); Lymphocyte % 31.1 % (19-41); Mean Corpuscular Hgb 32.1 pg (27.0-32.0); Mean Corpuscular Volume 94.4 fL (80-94); Mean Platelet Vol. 10.7 fl (6.2-12.0); Monocyte# 0.47 X10^3/uL; Monocyte% 7.2 % (0-10); Neutrophil # 3.86 X10^3/uL (2.7-7.7); Neutrophil % 59.2 % (47-70); Platelet Count 151 K/mm3 (150-450); RBC Distribution Width CV 12.2 % (11.6-14.6); RBC Distribution Width SD 41.4 fl (35.1-43.9); Red Blood Count 4.43 M/mm3 (4.6-6.2); White Blood Count 6.5 K/mm3 (4.4-11.0)
[2017-10-28 06:43] LABS: POSITIVE COUNT NO; POSITIVE DIFFERENTIAL NO; POSITIVE MORPHOLOGY NO
[2017-10-28 07:04] LABS: Anion Gap 9 (5-15); BUN 19 mg/dL (7-18); BUN/Creat Ratio 19.6 RATIO (10-20); Calcium,Total 8.3 mg/dL (8.5-10.1); Chloride 109 mmol/L (98-107); Cholesterol 104 mg/dL (200); Creatinine, Serum 0.97 mg/dL (0.70-1.30); EST Glomerular Filtration Rate 82 mL/min (>60); Est Glom Filt Rate - Afr Amer 99 mL/min (>60); Estimated Creatinine Clearance 81.11 ml/min; Glucose 103 mg/dL (74-106); High Density Lipoprotein 51 mg/dL; Potassium 4.1 mmol/L (3.5-5.1); Sodium Level 143 mmol/L (136-145); Triglycerides 43 mg/dL; Very Low Density Lipoprotein 9 mg/dL (5-40)
--- NOTE | 2017-10-28 07:31 | MRI_ITS ---
STUDY: MRI BRAIN WITHOUT CONTRAST REASON FOR EXAM: Male, 67 years old. cva -- sudden onset dizziness, rt side numbness, hx of cva. TECHNIQUE: Standardized multiplanar fat and water weighted pulse sequences were obtained. COMPARISON: None. FINDINGS: Normal size of the ventricles and extra-axial spaces for the patient's age. There are a limited number of small white matter hyperintensities, distributed throughout the deep white matter tracts of the cerebral hemispheres, consistent with mild chronic white matter ischemic changes. There is a 5 mm focus of restricted diffusion on the left parietal region (diffusion image #18 series 4) there is a drop of signal on ADC map, consistent with acute infarction. Normal bilateral basal ganglia. Normal thalami. There is no extra-axial fluid accumulation. Normal flow voids within the major intracranial circulation suggesting patency by spin echo criteria. Normal sella turcica, pituitary gland, infundibular stalk, optic chiasm and hypothalamus. Normal tectal plate and pineal gland. Normal midbrain, zhou and medulla. Right cerebellar focal T2 hyperintensities, chronic lacunar infarcts are noted MRI/Brain without Contrast IMPRESSION: Acute left parietal lacunar infarct. Chronic right cerebellar lacunar infarcts. N.B. : The above information has been verbally conveyed by Chinmay Velarde MD to Jeni Hardinggeraldo [phone], [facility], on 10/28/2017 14:32:52 (ET). Electronically Signed: Chinmay Velarde MD at 14:00 EDT Tel , Service support ,
[2017-10-28] MEDS: amLODIPine 5 MG Tablet PO (08:58)
[2017-10-28] MEDS: Enoxaparin 40 MG/0.4 ML Syringe SC (08:58)
[2017-10-28] MEDS: Famotidine 20 MG Tablet PO (08:58)
[2017-10-28] MEDS: Aspirin 81 MG TAB.CHEW PO (08:58)
[2017-10-28] MEDS: Triamcinolone Ointment 1 APPLIC TUBE TOPICAL (08:58)
[2017-10-28] MEDS: Clopidogrel Bisulfate 75 MG Tablet PO (08:58)
--- NOTE | 2017-10-28 10:02 | CON.PCM_ITS ---
Reason for Consult Date of Consultation: 10/28/17 Reason for Consultation: transient confusion History of Present Illness: The patient is a 67 year old M right handed after a round of golf yesterday after finished lunch. noted abnormal sensation of speech associated with nausea and diaphoresis. noted he was pale in the ED. feeling well previously, cva in 06/27 associated with right sided paresthiesias.no recent illness or med changes. Her admission H&P: The patient is a 67 y/o M w/ PMHx: HTN, HLD, Hypothyroidism , Obesity, Prior CVA (MRI brain 07/03/16 with focal subcortical acute infarcts within the high right frontal border zone region and the left posterior border zone region abutting the central sulcus likely within the central gyrus) who presents to the [facility] ED on 10/27/17 with history of golfing through the day, sitting down to lunch at ~ 14:30 with onset at that time of sensation of echoing of his voice in his head when he spoke with following onset right upper extremity numbness, diaphoresis and nausea which last approximately 25 minutes and resolved upon ED presentation. is present in the emergency room and noted that with onset of these findings he was also very pale. She notes that he appears to currently be at his baseline. The emergency room workup included T 98.2, heart rate 76, BP 151/80, respiratory rate 18, 96% on room air, unremarkable CBC, unremarkable coags, BMP with chloride 109, BUN/creatinine 25 1.22, glucose 139, last hemoglobin A1c noted 07/03/16 5.7%, troponin less than 0.015, EKG with no acute findings, ET head with stable chronic ischemic and atrophic changes with no acute findings on chest x-ray with no acute findings, CTA head with normal [place] without any demonstrated aneurysm or significant stenosis, CT of the neck with no demonstrated aneurysm or significant stenosis. Neurology was consulted per the emergency room and had requested CTA head and neck to be obtained. Past Medical History Past Medical History (Chronic Problems): Chronic Problems HLD (hyperlipidemia) (Chronic) Hypothyroidism (Chronic) CVA (cerebral vascular accident) (Chronic) MRI brain 07/03/16 with focal subcortical acute infarcts within the high right frontal border zone region and the left posterior border zone region abutting the central sulcus likely within the central gyrus. HTN (hypertension) (Chronic) Allergies Sulfa (Sulfonamide Antibiotics) Allergy (Verified 10/27/17 14:53) PT CAN'T REMEMBER Home Medications: Ambulatory Orders Medication Instructions Recorded Triamcinolone 0.1% Ointment 1 applic TOPICAL DAILY 07/03/16 [Kenalog] Amlodipine [Norvasc] 5 mg PO DAILY #90 tablet 07/05/16 Aspirin [Aspirin, Baby] 81 mg PO DAILY@0800 #90 tab.chew 07/05/16 Atorvastatin Calcium [Lipitor] 40 mg PO DAILY #90 tablet 07/05/16 Hydrocortisone [Hydrocortisone] 453.6 gm TOPICAL DAILY PRN PRN 10/27/17 Levothyroxine [Synthroid] 88 mcg PO DAILY 10/27/17 Levothyroxine [Synthroid] 100 mcg PO DAILY 10/27/17 Surgical History: - - Arthroscopic knee surgery, left eye muscle surgery, Lasix eye surgery, bilateral carpal tunnel surgery, tonsillectomy. Psychiatric History: No pertinent psych hx Lives: Spouse/ Significant Other Smoking Status: Never smoker Tobacco Use: Non-smoker Alcohol: None Drugs: None - *Family History Maternal History Items: Cancer, Stroke Paternal History Items: Heart Disease Sibling History Items: Heart Disease - Brother of [place] Review of Systems Constitutional: Denies: Chills, Fever, Weight Change HEENT: Denies: Head Aches, Sinus Congestion, Sinus Drainage Cardiovascular: Denies: Chest Pain, Palpitations Respiratory: Denies: Cough, Shortness of breath at rest, Sputum production Gastrointestinal: Denies: Abdominal Pain, Nausea, Vomiting Genitourinary: Denies: Dysuria Musculoskeletal: Denies: Joint Pain, Joint Tenderness Skin: Denies: Rash, Wounds Neurological: Denies: Numbness, Tingling, Focal weakness Psychiatric: Denies: Anxiety, Depression, Homicidal Ideations, Suicidal Ideations Hematologic/ Lymphatic: Denies: Easy Bruising, Easy Bleeding - Physical Exam General: Alert, Oriented x3, Cooperative HEENT: Atraumatic, PERRLA, EOMI, Normocephalic Neck: Supple, No JVD, Negative Carotid Bruits Lungs: Clear to auscultation, Normal air movement Cardiovascular: Regular rate, No murmurs Abdomen: Bowel Sounds Present, Soft, Non Tender Extremities: No edema, Capillary Refill Less than 3 Seconds Skin: No rashes, No breakdown Musculoskeletal: No Tenderness to Palpation of Joints or Extremities Neurological: Cranial nerves II-XII grossly intact Psych/Mental Status: Normal Affect, Appropriate Vital Signs Temp Pulse Resp BP Pulse Ox 36.7 C 47 L 16 140/82 H 97 10/28/17 06:11 10/28/17 06:57 10/28/17 06:11 10/28/17 06:11 10/28/17 07:24 Oxygen Delivery Method Room Air Weight: 101.3 kg Body Mass Index (BMI) 30.2 Intake and Output for Last 24 Hours 10/26/17 10/27/17 10/28/17 23:59 23:59 23:59 Intake Total 1284 / 1284 812 / 812 Balance 1284 / 1284 812 / 812 Laboratory Tests Past 24 Hrs 10/27/17 10/27/17 10/28/17 19:43 22:35 01:48 WBC RBC Hgb Hct MCV MCH MCHC RDW RDW Differential Plt Count MPV Immature Gran % (Auto) Neut % (Auto) Lymph % (Auto) [place] % (Auto) Eos % (Auto) Baso % (Auto) Absolute Neuts (auto) Absolute Lymphs (auto) Total Counted Sodium Potassium Chloride Carbon Dioxide Anion Gap BUN Creatinine Estim Creat Clear Calc Est GFR (MDRD) Af Amer Est GFR (MDRD) Non-Af BUN/Creatinine Ratio Glucose Calcium Magnesium 2.1 Troponin I < 0.015 < 0.015 < 0.015 Triglycerides Cholesterol LDL Cholesterol VLDL Cholesterol HDL Cholesterol TSH 0.12 L Free T4 1.39 10/28/17 10/28/17 06:00 06:00 WBC 6.5 RBC 4.43 L Hgb 14.2 Hct 41.8 MCV 94.4 H MCH 32.1 H MCHC 34.0 RDW 12.2 RDW Differential 41.4 Plt Count 151 MPV 10.7 Immature Gran % (Auto) 0.200 Neut % (Auto) 59.2 Lymph % (Auto) 31.1 [place] % (Auto) 7.2 Eos % (Auto) 2.0 Baso % (Auto) 0.3 Absolute Neuts (auto) 3.9 Absolute Lymphs (auto) 2.03 Total Counted Not Reportable Sodium 143 Potassium 4.1 Chloride 109 H Carbon Dioxide 25.0 Anion Gap 9 BUN 19 H Creatinine 0.97 Estim Creat Clear Calc 81.11 Est GFR (MDRD) Af Amer 99 Est GFR (MDRD) Non-Af 82 BUN/Creatinine Ratio 19.6 Glucose 103 Calcium 8.3 L Magnesium Troponin I Triglycerides 43 Cholesterol 104 LDL Cholesterol 44 VLDL Cholesterol 9 HDL Cholesterol 51 TSH Free T4 Assessment/Plan All Active Problems TIA (transient ischemic attack) (Acute) suspect presyncope due to presence of nausea and diaphoresis. reports recent brbpr. await mri consider stool hemocults asa only consider further eval of bradycardia
--- NOTE | 2017-10-28 17:01 | DCINST_ITS ---
You will use the following diet at home:: Cardiac Your food should be the consistency of: Regular Your liquids should be the consistency of: Regular/Thin Discharge Activity: Return to Normal Activity Call your doctor if you observe: Fever of 101 or Higher, Numbness or Tingling, Shortness of breath, Dizziness, Fainting spells, - - unilateral weakness. Allergies/Adverse Reactions: Allergies Sulfa (Sulfonamide Antibiotics) Allergy (Verified 10/27/17 14:53) PT CAN'T REMEMBER Medications to take at Discharge Triamcinolone 0.1% Ointment [Kenalog] 1 applic TOPICAL DAILY 07/03/16 Amlodipine [Norvasc] 5 mg PO DAILY #90 tablet 07/05/16 Aspirin [Aspirin, Baby] 81 mg PO DAILY@0800 #90 tab.chew 07/05/16 Atorvastatin Calcium [Lipitor] 40 mg PO DAILY #90 tablet 07/05/16 Hydrocortisone 453.6 gm TOPICAL DAILY PRN PRN 10/27/17 Levothyroxine [Synthroid] 88 mcg PO DAILY 10/27/17 Levothyroxine [Synthroid] 100 mcg PO DAILY 10/27/17 Clopidogrel Bisulfate [Plavix] 75 mg PO DAILY #30 tab 10/28/17 The following prescriptions were given: Clopidogrel Bisulfate [Plavix] 75 mg PO DAILY #30 tab Orders to be completed after discharge: 30-Day Event Recorder [[facility]] Location: None Selected Primary Care Physician: Liseth Del Valle DO [Primary Care Provider] - Within 2 Weeks Test Results: Test results from this visit will be discussed in further detail at your follow- up appointment, if applicable. Please Follow Up With: Braulio When: 4-6 weeks Proposed Discharge Date: 10/28/17
--- NOTE | 2017-10-28 17:01 | PCM.DC.SUM ---
Discharge Date and Diagnosis - Problem List Patient Problems: Active and Suspected Problems CVA (cerebral vascular accident) (Acute) MRI brain 07/03/16 with focal subcortical acute infarcts within the high right frontal border zone region and the left posterior border zone region abutting the central sulcus likely within the central gyrus. Date of Admission: 10/27/17 Date of Discharge: 10/28/17 - Secondary Discharge Diagnosis Chronic Problems HLD (hyperlipidemia) (Chronic) Hypothyroidism (Chronic) CVA (cerebral vascular accident) (Chronic) MRI brain 07/03/16 with focal subcortical acute infarcts within the high right frontal border zone region and the left posterior border zone region abutting the central sulcus likely within the central gyrus. HTN (hypertension) (Chronic) Hospital Course and Treatment Imaging Results: Clinical Impression(s) from Imaging Studies Brain CT 10/27/17 15:08 IMPRESSION: Stable chronic ischemic and atrophic changes. No acute intracranial abnormality. Electronically Signed: Silvano Sullivan, at 16:09 EDT Tel , Service support , Chest X-Ray 10/27/17 15:08 IMPRESSION: No acute thoracic pathology. Electronically Signed: Silvano Sullivan, at 16:44 EDT Tel , Service support , Head CTA 10/27/17 15:30 IMPRESSION: Normal [place] without a demonstrated aneurysm or hemodynamically significant stenosis. Electronically Signed: Parker Mancuso MD at 16:41 EDT , Service support , Neck CTA 10/27/17 15:30 IMPRESSION: No demonstrated aneurysm or significant stenosis. Electronically Signed: Rosmery Lira MD at 17:36 EDT Tel , Service support , Brain MRI 10/28/17 07:31 IMPRESSION: Acute left parietal lacunar infarct. Chronic right cerebellar lacunar infarcts. N.B. : The above information has been verbally conveyed by Chinmay Velarde MD to Jeni Bergeron [phone], Array, on 10/28/2017 14:32:52 (ET). Electronically Signed: Chinmay Velarde MD at 14:00 EDT Tel , Service support , Bruno [place] Operations: None Procedures: 2-D Echocardiogram Summary of Care Provided: The patient is a 67 year old M presents with RUE parerethises. MRI showed an acute left parietal lacunar infarct. DW Dr. Hannah who advised DAPT (ASA and Plavix) + High-intensity statin. He did advise an event monitor, though he feels the patient's etiology maybe due to bradycardia and HTN. Pt is already established with Dr. Ramsey in [place] for neurology and states that he will follow up with him. Patient is in no acute distress and afebrile. Heart is regular rate and rhythm plus S1-S2 without murmurs gallops or rubs. Lungs are clear to auscultation bilaterally. Neurologic cranial nerves II through XII are grossly intact motor strength is 5 out of 5 in upper extremities. Finger to nose is intact. [] Discharge Diet: Low fat/ Low Cholesterol Discharge Activity: Return to Normal Activity Call your doctor if you observe: Fever of 101 or Higher, Numbness or Tingling, Shortness of breath, Dizziness, Fainting spells, - - unilateral weakness. Home Medications: Medications to take at Discharge Triamcinolone 0.1% Ointment [Kenalog] 1 applic TOPICAL DAILY 07/03/16 Amlodipine [Norvasc] 5 mg PO DAILY #90 tablet 07/05/16 Aspirin [Aspirin, Baby] 81 mg PO DAILY@0800 #90 tab.chew 07/05/16 Atorvastatin Calcium [Lipitor] 40 mg PO DAILY #90 tablet 07/05/16 Hydrocortisone 453.6 gm TOPICAL DAILY PRN PRN 10/27/17 Levothyroxine [Synthroid] 88 mcg PO DAILY 10/27/17 Levothyroxine [Synthroid] 100 mcg PO DAILY 10/27/17 Clopidogrel Bisulfate [Plavix] 75 mg PO DAILY #30 tab 10/28/17 Following Prescrptions Were Given to Patient: Clopidogrel Bisulfate [Plavix] 75 mg PO DAILY #30 tab Other Amb Orders: 30-Day Event Recorder [[facility]] Location: None Selected Primary Care Physician: Liseth Del Valle DO [Primary Care Provider] - Within 2 Weeks Please Follow Up With: Braulio When: 4-6 weeks Disposition: Home Minutes spent on discharge:: 40 Patient Condition:: Good Medical Necessity - Tobacco Use Smoking Status: Never smoker Tobacco Use: Non-smoker Meaningful Use Info Meaningful Use Diagnoses (Choose all that apply): Ischemic CVA - CVA Therapy Assessed for PT,OT and/or ST?: Yes - Ischemic Stroke Antithrombotic order at d/c?: Yes Dx of Atrial fib/flutter?: No Statins at discharge?: Yes Primary Dx Acute Ischemic CVA?: Yes IV tPA ordered during stay?: No Reason IV t-PA not ordered: Procedure not Indicated Code Visit OBSV E&M: 48386 Observation care discharge
--- NOTE | 2017-10-28 17:05 | DS.PCM_ITS ---
Discharge Date and Diagnosis - Problem List Patient Problems: Active and Suspected Problems CVA (cerebral vascular accident) (Acute) MRI brain 07/03/16 with focal subcortical acute infarcts within the high right frontal border zone region and the left posterior border zone region abutting the central sulcus likely within the central gyrus. Date of Admission: 10/27/17 Date of Discharge: 10/28/17 - Secondary Discharge Diagnosis Chronic Problems HLD (hyperlipidemia) (Chronic) Hypothyroidism (Chronic) CVA (cerebral vascular accident) (Chronic) MRI brain 07/03/16 with focal subcortical acute infarcts within the high right frontal border zone region and the left posterior border zone region abutting the central sulcus likely within the central gyrus. HTN (hypertension) (Chronic) Hospital Course and Treatment Imaging Results: Clinical Impression(s) from Imaging Studies Brain CT 10/27/17 15:08 IMPRESSION: Stable chronic ischemic and atrophic changes. No acute intracranial abnormality. Electronically Signed: Silvano Sullivan, at 16:09 EDT Tel , Service support , Chest X-Ray 10/27/17 15:08 IMPRESSION: No acute thoracic pathology. Electronically Signed: Silvano Sullivan, at 16:44 EDT Tel , Service support , Head CTA 10/27/17 15:30 IMPRESSION: Normal [place] without a demonstrated aneurysm or hemodynamically significant stenosis. Electronically Signed: Parker Mancuso MD at 16:41 EDT , Service support , Neck CTA 10/27/17 15:30 IMPRESSION: No demonstrated aneurysm or significant stenosis. Electronically Signed: Rosmery Lira MD at 17:36 EDT Tel , Service support , Brain MRI 10/28/17 07:31 IMPRESSION: Acute left parietal lacunar infarct. Chronic right cerebellar lacunar infarcts. N.B. : The above information has been verbally conveyed by Chinmay Velarde MD to Jeni Bergeron [phone], Array, on 10/28/2017 14:32:52 (ET). Electronically Signed: Chinmay Velarde MD at 14:00 EDT Tel , Service support , Bruno [place] Operations: None Procedures: 2-D Echocardiogram Summary of Care Provided: The patient is a 67 year old M presents with RUE parerethises. MRI showed an acute left parietal lacunar infarct. DW Dr. Hannah who advised DAPT (ASA and Plavix) + High-intensity statin. He did advise an event monitor, though he feels the patient's etiology maybe due to bradycardia and HTN. Pt is already established with Dr. Ramsey in [place] for neurology and states that he will follow up with him. Patient is in no acute distress and afebrile. Heart is regular rate and rhythm plus S1-S2 without murmurs gallops or rubs. Lungs are clear to auscultation bilaterally. Neurologic cranial nerves II through XII are grossly intact motor strength is 5 out of 5 in upper extremities. Finger to nose is intact. [] Discharge Diet: Low fat/ Low Cholesterol Discharge Activity: Return to Normal Activity Call your doctor if you observe: Fever of 101 or Higher, Numbness or Tingling, Shortness of breath, Dizziness, Fainting spells, - - unilateral weakness. Home Medications: Medications to take at Discharge Triamcinolone 0.1% Ointment [Kenalog] 1 applic TOPICAL DAILY 07/03/16 Amlodipine [Norvasc] 5 mg PO DAILY #90 tablet 07/05/16 Aspirin [Aspirin, Baby] 81 mg PO DAILY@0800 #90 tab.chew 07/05/16 Atorvastatin Calcium [Lipitor] 40 mg PO DAILY #90 tablet 07/05/16 Hydrocortisone 453.6 gm TOPICAL DAILY PRN PRN 10/27/17 Levothyroxine [Synthroid] 88 mcg PO DAILY 10/27/17 Levothyroxine [Synthroid] 100 mcg PO DAILY 10/27/17 Clopidogrel Bisulfate [Plavix] 75 mg PO DAILY #30 tab 10/28/17 Following Prescrptions Were Given to Patient: Clopidogrel Bisulfate [Plavix] 75 mg PO DAILY #30 tab Other Amb Orders: 30-Day Event Recorder [[facility]] Location: None Selected Primary Care Physician: Liseth Del Valle DO [Primary Care Provider] - Within 2 Weeks Please Follow Up With: Braulio When: 4-6 weeks Disposition: Home Minutes spent on discharge:: 40 Patient Condition:: Good Medical Necessity - Tobacco Use Smoking Status: Never smoker Tobacco Use: Non-smoker Meaningful Use Info Meaningful Use Diagnoses (Choose all that apply): Ischemic CVA - CVA Therapy Assessed for PT,OT and/or ST?: Yes - Ischemic Stroke Antithrombotic order at d/c?: Yes Dx of Atrial fib/flutter?: No Statins at discharge?: Yes Primary Dx Acute Ischemic CVA?: Yes IV tPA ordered during stay?: No Reason IV t-PA not ordered: Procedure not Indicated Code Visit OBSV E&M: 93329 Observation care discharge
== END 2017-10-28 17:13 | disposition home or self-care (01) ==
LOC: ED 15:08 → PCU 19:45
PROVIDERS: Admitting Provider Family Medicine; Emergency Provider Emergency Medicine; Family Provider Family Medicine; PCP Family Medicine
DX: I63.9 Cerebral infarction, unspecified (principal); R20.0 Anesthesia of skin; E78.5 Hyperlipidemia, unspecified; I10 Essential (primary) hypertension; E03.9 Hypothyroidism, unspecified; E66.9 Obesity, unspecified; Z71.3 Dietary counseling and surveillance; Z79.899 Other long term (current) drug therapy; Z79.82 Long term (current) use of aspirin; Z86.73 Personal history of transient ischemic attack (TIA), and cerebral infarction without residual deficits; Z68.32 Body mass index [BMI] 32.0-32.9, adult; R47.89 Other speech disturbances
CPT/HCPCS: 36415; 70450; 70496; 70498; 70551; 71045; 80048; 80061; 82962; 83735; 84439; 84443; 84484; 85025; 85610; 85730; 92523; 93005; 93306; 96360; 96361; 96372; 97802; 99218; 99285; J7030; Q9967; A4216; G0378; G8996; G8997; G8998

== ENCOUNTER 2017-10-29 09:59 | Emergency (ER) | payer MEDICARE, OTHER, SELFPAY ==
[2017-10-29 10:01] VITALS: BP 197/104; PULSE 78; RESP 15; TEMP 36.8; O2SAT 97; BMI 30.4
--- NOTE | 2017-10-29 10:19 | EKG12_ITS ---
Test Reason : DIZZINESS Blood Pressure : / mmHG Vent. Rate : 065 BPM Atrial Rate : 065 BPM P-R Int : 184 ms QRS Dur : 114 ms QT Int : 396 ms P-R-T Axes : 039 -11 041 degrees QTc Int : 411 ms Normal sinus rhythm Incomplete right bundle branch block Abnormal ECG Confirmed by DIVINA URRUTIA, MEGA ([id number]), state editor SHALOM HUGHES ([id number] on 10/30/2017 2:12:35 PM Referred By: MIGUEL Confirmed By:MEGA MURCIA MD
--- NOTE | 2017-10-29 10:19 | CT_ITS ---
STUDY: CT BRAIN WITHOUT CONTRAST REASON FOR EXAM: Male, 67 years old. dizziness, hx of stroke x2days ago. RADIATION DOSAGE (If Supplied By Facility): CTDIvol = ( 60.81 ) mGy, DLP = ( 1135.50 ) mGycm TECHNIQUE: Transaxial CT imaging of the brain was performed without administration of intravenous contrast material. Individualized dose optimization techniques were used for this CT. COMPARISON: October 27, 2017 FINDINGS: Normal soft tissue structures. Normal calvarium. Normal size ventricles and extra-axial spaces for the patient's age. Normal white matter tracts of the cerebral hemispheres. Normal basal ganglia and thalami. Normal brainstem. Chronic right cerebellar lacunar infarct is noted. There is no intracranial hemorrhage. There are no findings of an acute ischemic infarction. Normal visualized paranasal sinuses. CT/Brain/Head without Contrast IMPRESSION: No acute intracranial abnormality. Chronic right cerebellar lacunar infarct. Electronically Signed: Chinmay Velarde MD at 11:24 EDT Tel , Service support ,
[2017-10-29 10:40] LABS: Absolute Lymphocyte Count 1.54 X10^3/ul (0.83-4.51); Basophil# 0.01 X10^3/uL; Basophil% 0.1 % (0-1); Eosinophil# 0.08 X10^3/uL; Eosinophils% 1.1 % (0-5); Hematocrit 45.9 % (40-54); Hemoglobin 15.4 g/dl (13.0-16.5); Lymphocyte # 1.54 X10^3/ul (4.0); Lymphocyte % 21.5 % (19-41); Mean Corp Hgb Conc 33.6 g/gl (32-36); Mean Corpuscular Hgb 31.8 pg (27.0-32.0); Mean Corpuscular Volume 94.8 fL (80-94); Mean Platelet Vol. 10.5 fl (6.2-12.0); Monocyte# 0.48 X10^3/uL; Monocyte% 6.7 % (0-10); Neutrophil # 5.03 X10^3/uL (2.7-7.7); Neutrophil % 70.5 % (47-70); POSITIVE COUNT NO; POSITIVE DIFFERENTIAL NO; POSITIVE MORPHOLOGY NO; Platelet Count 148 K/mm3 (150-450); RBC Distribution Width CV 12.4 % (11.6-14.6); RBC Distribution Width SD 42.9 fl (35.1-43.9); Red Blood Count 4.84 M/mm3 (4.6-6.2); White Blood Count 7.2 K/mm3 (4.4-11.0)
[2017-10-29 10:44] VITALS: BP 136/87; PULSE 64; RESP 18; O2SAT 94
[2017-10-29] MEDS: 0.9% Normal Saline 1,000 ML 150 ML IV (10:47)
[2017-10-29 10:55] LABS: Anion Gap 9 (5-15); BUN 22 mg/dL (7-18); Chloride 104 mmol/L (98-107); Creatinine, Serum 1.22 mg/dL (0.70-1.30); EST Glomerular Filtration Rate 63 mL/min (>60); Est Glom Filt Rate - Afr Amer 76 mL/min (>60); Estimated Creatinine Clearance 64.49 ml/min; Glucose 118 mg/dL (74-106); Potassium 3.8 mmol/L (3.5-5.1); Sodium Level 142 mmol/L (136-145)
--- NOTE | 2017-10-29 11:09 | ED.DCSUM_ITS ---
- ER Visit Summary Date of Service: 10/29/17 Chief Complaint: [Dizziness presents the emergency department with complaint of dizziness that started] History of Present Illness: The patient is a 67 M [this morning. Patient states that he woke up feeling pretty good today and he and his went to the bank. On walking into the bank patient felt lightheaded. Patient denied any paresthesias. He denied any chest pain. He denied feeling presyncopal. He denies any palpitations. Patient believes he may have started to panic being that he was just discharged from the hospital yesterday after being diagnosed with a stroke. Patient was seen in the emergency department by myself 2 days ago and was admitted after he had a episode of paresthesias to the right arm that lasted approximately 10 minutes. Patient's MRI did reveal that he did have a left-sided acute infarct. Patient was started on Plavix and discharged home yesterday. Patient currently denies any weakness. He denies any vertiginous symptoms. He denies any headache. He denies any falls or head injuries. He denies any fever although he has had some mild cold-like symptoms for a week he states.] Physical Examination: [HEENT-PERRLA, EOMI. Cranial nerves II through XII grossly intact. TMs clear. Mucous membranes moist. No adenopathy. Cardiovascular-regular rate and rhythm without murmur or ectopy Lungs-clear to auscultation, chest wall stable without crepitus or subcu emphysema Abdomen-normoactive bowel sounds, soft, nontender, no rebound or rigidity, no peritoneal signs. Extremities-intact ?4, normal range of motion, normal pulses, atraumatic Neuro exam-] finger-nose and heel pizano testing within normal limits, negative Romberg, negative pronator drift, fundi benign. No facial droop noted. NIH stroke scale was 0. Test Results: [EKG obtained shows sinus rhythm with a ventricular rate of 65 bpm with a right bundle branch block. CBC with differential showing a 7.2, hemoglobin 15.4, hematocrit 46, platelets 148. Chemistries were unremarkable. Troponin was less than 0.015.] CT scan of the brain with contrast showed chronic cerebellar infarct otherwise nothing acute. Orthostatic vital signs were negative. Emergency Department Course and Treatment: [] Treatment Plan: [Case was discussed with Dr. Hannah who was on-call for neurology and saw patient in the hospital yesterday. No further workup is felt to be indicated at this time or further treatment. Strokes have been small vessel ischemia and spelled believed likely to be due to long-standing hypertension. Patient is scheduled to have a event monitor placed today and he is to keep that appointment.] I suspect there is also an anxiety component at this point. Patient was noted to be quite hypertensive on her initial present ation to the emergency department with a blood pressure 197/104 however once resting blood pressure normalized and prior to discharge is now 130s over 80s. Disposition: [Discharged home in stable condition] Impression: [Dizziness Transient hypertension.] This note was generated with [employer] dictation software. It may contain incorrect words, spelling, and punctuation that were not noted in review of the chart prior to signing ED Disposition - Plan for ED Patient: Chief Complaint: Dizziness Referrals: Liseth Del Valle DO [Primary Care Provider] -
[2017-10-29 11:12] VITALS: BP 129/90; BP 138/82; BP 142/87; PULSE 62; PULSE 71; PULSE 84
--- NOTE | 2017-10-29 11:40 | NURSING ---
DR CONTRERAS PAGED
--- NOTE | 2017-10-29 11:53 | ED.DEP ---
ED Disposition - Plan for ED Patient: Chief Complaint: Dizziness Instructions: ED Dizziness UKO, ED HTN Established Referrals: Liseth Del Valle DO [Primary Care Provider] - 3-5 Days Additional Instructions: See Dr. Hannah in 5-7 days or as instructed
[2017-10-29 12:11] VITALS: BP 146/81; PULSE 61; RESP 19; O2SAT 93
== END 2017-10-29 12:12 | disposition home or self-care (01) ==
PROVIDERS: Emergency Provider Emergency Medicine; Family Provider Family Medicine; PCP Family Medicine
DX: R42 Dizziness and giddiness (principal); I10 Essential (primary) hypertension; E78.00 Pure hypercholesterolemia, unspecified; E03.9 Hypothyroidism, unspecified; Z86.73 Personal history of transient ischemic attack (TIA), and cerebral infarction without residual deficits; Z79.02 Long term (current) use of antithrombotics/antiplatelets; Z79.82 Long term (current) use of aspirin; Z79.899 Other long term (current) drug therapy
CPT/HCPCS: 70450; 80048; 84484; 85025; 93005; 96360; 99284; J7030; A4216

== ENCOUNTER → 2017-11-08 16:14 | Outpatient (CLI) | payer MEDICARE, OTHER, SELFPAY ==
[2017-11-08 17:18] LABS: PSA,Total - Annual Screen 2.38 ng/mL (0.00-4.00)
== END ==
PROVIDERS: Family Provider Family Medicine; PCP Family Medicine; Visit Provider Family Medicine
DX: Z12.5 Encounter for screening for malignant neoplasm of prostate (principal)
CPT/HCPCS: 36415; 84153; G0103

== ENCOUNTER 2017-11-15 11:00 | Emergency (ER) | payer MEDICARE, OTHER, SELFPAY ==
[2017-11-15 11:02] VITALS: BP 155/90; PULSE 64; RESP 18; TEMP 36.7; O2SAT 99; BMI 29.8
--- NOTE | 2017-11-15 11:13 | CT_ITS ---
STUDY: CT BRAIN WITHOUT CONTRAST REASON FOR EXAM: Male, 67 years old. CVA RADIATION DOSAGE (If Supplied By Facility): CTDIvol = ( 44.99 ) mGy, DLP = ( 812.98 ) mGycm TECHNIQUE: Transaxial CT imaging of the brain was performed without administration of intravenous contrast material. Individualized dose optimization techniques were used for this CT. COMPARISON: None. FINDINGS: Normal soft tissue structures. Normal calvarium. Normal size ventricles and extra-axial spaces for the patient's age. There are areas of decreased attenuation within the white matter tracts of the supratentorial brain, consistent with microvascular disease changes. Normal basal ganglia and thalami. Normal brainstem. There is a small old infarction in the inferior aspect of the right cerebellar hemisphere. There is no intracranial hemorrhage. There are no findings of an acute ischemic infarction. Normal visualized paranasal sinuses. CT/Brain/Head without Contrast IMPRESSION: Chronic involutional changes of the brain. There is a small old infarction in the inferior aspect of the right cerebellar hemisphere. Electronically Signed: Beth Loya MD at 12:01 EDT Tel , Service support ,
--- NOTE | 2017-11-15 11:13 | EKG12_ITS ---
Test Reason : NEURO S/SX Blood Pressure : / mmHG Vent. Rate : 061 BPM Atrial Rate : 061 BPM P-R Int : 198 ms QRS Dur : 158 ms QT Int : 448 ms P-R-T Axes : 029 -19 011 degrees QTc Int : 450 ms Normal sinus rhythm Right bundle branch block Abnormal ECG Confirmed by DARRON URRUTIA, SENG ([id number]), science editor SHALOM HUGHES ([id number] on 11/18/2017 2:44:06 PM Referred By: ALLY Confirmed By:SENG ROB MD
--- NOTE | 2017-11-15 11:15 | ED.VISSUMM ---
- ER Visit Summary Date of Service: 11/15/17 Chief Complaint: Lightheadedness, tingling History of Present Illness: The patient is a 67 M presents to the emergency department just feeling unwell. The patient was recently hospitalized for a stroke. He was found to have a small ischemic event in his left. The patient was started on Plavix. He was discharged home. He states since his stroke, he is just felt off. Today, he was playing golf. He states he felt mildly lightheaded. He states as of the day went on, he began to feel worse. He states he began to have some tingling in both of his arms. When he had his stroke 3 weeks ago, he had tingling and some clumsiness on the right side. He states today, it was just tingling in both of the shoulders and in both of his arms. He was feeling lightheaded and mildly dizzy. He was also nauseated. He states he began to have some tremors in route. He states that there are some components that feels similar to his stroke, but he states it also feels different. His only new medication is Plavix. He denies chest pain. He denies orthopnea. He has had no trauma. He denies headache. Physical Examination: Vital signs reviewed General: Well-nourished, well-developed Head: Normocephalic, atraumatic Eyes: Pupils equal and reactive, extraocular muscles intact Neck, supple, no lymphadenopathy Heart: Regular rate and rhythm Respiratory: No distress, clear bilaterally Abdomen: Soft, nontender, nondistended, no peritoneal signs Back: Nontender Extremities: Nontender, no edema, no cords Skin: Normal color no rash Neuro: Alert and oriented, no focal or lateralizing deficits Test Results: [] Emergency Department Course and Treatment: The patient presents with lightheadedness and paresthesias. The paresthesias involved both arms and his feet. My suspicion for acute neurologic process is low, but given the patient's recent admission for stroke, I did pursue a metabolic workup. His labs are unremarkable. His EKG showed sinus rhythm with a few PVCs. There was no dysrhythmia or atrial fibrillation. Patient's head CT shows no hemorrhage does demonstrate old stroke. On reevaluation, he is resting comfortably. He said no progression of his symptoms. The symptoms are different than his initial stroke presentation. At this time, the patient is already on Plavix. His blood pressure is under good control. He has diffuse neurologic symptoms without any focality. I do not suspect TIA or acute stroke as the cause of his symptoms. I do feel that the patient is safe for discharge and outpatient follow-up. He and are comfortable with this plan of care. Treatment Plan: [] Disposition: Discharge Impression: Paresthesias This note was generated with [facility] dictation software. It may contain incorrect words, spelling, and punctuation that were not noted in review of the chart prior to signing ED Disposition - Plan for ED Patient: Disposition: Home or Assisted Living Chief Complaint: Numb/Ting Instructions: ED Paraesthesias Referrals: Liseth Del Valle DO [Primary Care Provider] -
--- NOTE | 2017-11-15 11:22 | RAD_ITS ---
STUDY: X-RAY CHEST REASON FOR EXAM: Male, 67 years old. Chest pain TECHNIQUE: Single AP portable view of the chest. COMPARISON: None. FINDINGS: The lungs are clear and expanded. There is no demonstrated pleural abnormality. Normal size heart. Normal mediastinum and emelyn. Normal visualized pulmonary arteries. Normal visualized aortic arch and descending thoracic aorta. Normal visualized thoracic spine. Normal visualized ribs, clavicles, and shoulders. There is no demonstrated abnormality of the visualized soft tissue structures of the upper abdomen. RAD/Chest 1 View IMPRESSION: Normal x-ray examination of the chest. Electronically Signed: Beth Loya MD at 11:30 EDT Tel , Service support ,
[2017-11-15 11:26] LABS: Absolute Lymphocyte Count 1.93 X10^3/ul (0.83-4.51); Absolute Neutrophil Count 3.3 X10^3/uL (2.0-7.7); Basophil# 0.02 X10^3/uL; Basophil% 0.3 % (0-1); Eosinophil# 0.07 X10^3/uL; Eosinophils% 1.2 % (0-5); Hematocrit 44.2 % (40-54); Hemoglobin 15.2 g/dl (13.0-16.5); Lymphocyte # 1.93 X10^3/ul (4.0); Lymphocyte % 33.3 % (19-41); Mean Corp Hgb Conc 34.4 g/gl (32-36); Mean Corpuscular Hgb 32.1 pg (27.0-32.0); Mean Corpuscular Volume 93.2 fL (80-94); Mean Platelet Vol. 10.8 fl (6.2-12.0); Monocyte# 0.51 X10^3/uL; Monocyte% 8.8 % (0-10); Neutrophil # 3.27 X10^3/uL (2.7-7.7); Neutrophil % 56.4 % (47-70); Platelet Count 160 K/mm3 (150-450); RBC Distribution Width CV 12.1 % (11.6-14.6); RBC Distribution Width SD 40.9 fl (35.1-43.9); Red Blood Count 4.74 M/mm3 (4.6-6.2); White Blood Count 5.8 K/mm3 (4.4-11.0)
[2017-11-15] MEDS: 0.9% Normal Saline 1,000 ML 999 ML IV (11:27)
[2017-11-15 11:28] VITALS: BP 161/85; PULSE 79; RESP 18; O2SAT 100
[2017-11-15 11:28] LABS: POSITIVE COUNT NO; POSITIVE DIFFERENTIAL NO; POSITIVE MORPHOLOGY NO
[2017-11-15 11:35] LABS: Bedside Glucose 98 mg/dL (70-110)
[2017-11-15 11:40] LABS: Anion Gap 6 (5-15); BUN 19 mg/dL (7-18); Calcium,Total 9.1 mg/dL (8.5-10.1); Chloride 105 mmol/L (98-107); Creatinine, Serum 1.12 mg/dL (0.70-1.30); EST Glomerular Filtration Rate 69 mL/min (>60); Est Glom Filt Rate - Afr Amer 84 mL/min (>60); Estimated Creatinine Clearance 70.25 ml/min; Glucose 104 mg/dL (74-106); Potassium 4.3 mmol/L (3.5-5.1); Sodium Level 139 mmol/L (136-145)
[2017-11-15 11:50] LABS: Prothrombin Time (Protime)PT. 13.5 SECONDS (11.7-14.9)
[2017-11-15 11:51] LABS: Partial Thromboplast Time 34.5 Seconds (24.1-36.2)
[2017-11-15 12:52] VITALS: BP 147/89; PULSE 77; RESP 18; O2SAT 98
== END 2017-11-15 12:53 | disposition home or self-care (01) ==
LOC: ED 12:40
PROVIDERS: Emergency Provider Emergency Medicine; Family Provider Family Medicine; PCP Family Medicine
DX: R20.2 Paresthesia of skin (principal); R42 Dizziness and giddiness; R11.0 Nausea; R25.1 Tremor, unspecified; I49.3 Ventricular premature depolarization; I45.10 Unspecified right bundle-branch block; I10 Essential (primary) hypertension; Z86.73 Personal history of transient ischemic attack (TIA), and cerebral infarction without residual deficits; Z79.02 Long term (current) use of antithrombotics/antiplatelets; Z79.82 Long term (current) use of aspirin; Z79.899 Other long term (current) drug therapy
CPT/HCPCS: 70450; 71045; 80048; 82962; 84484; 85025; 85610; 85730; 93005; 96360; 99285; J7030; A4216

== ENCOUNTER → 2017-11-22 10:11 | Outpatient (CLI) | payer MEDICARE, OTHER, SELFPAY ==
[2017-11-22 11:19] LABS: T4 Free Direct 1.58 ng/dL (0.76-1.46); Thyroid Stim Hormone (TSH) 0.06 uIU/mL (0.358-3.74)
== END ==
PROVIDERS: Family Provider Family Medicine; PCP Family Medicine; Referring Provider Family Medicine; Visit Provider Family Medicine
DX: E03.9 Hypothyroidism, unspecified (principal); Z12.5 Encounter for screening for malignant neoplasm of prostate
CPT/HCPCS: 36415; 84439; 84443

== ENCOUNTER → 2017-11-27 10:50 | Outpatient (CLI) | payer MEDICARE, OTHER, SELFPAY ==
[2017-11-27 11:48] LABS: Hematocrit 45.1 % (40-54); Hemoglobin 15.3 g/dl (13.0-16.5); Mean Corp Hgb Conc 33.9 g/gl (32-36); Mean Corpuscular Volume 94.4 fL (80-94); Mean Platelet Vol. 11.1 fl (6.2-12.0); Platelet Count 165 K/mm3 (150-450); RBC Distribution Width CV 12.2 % (11.6-14.6); RBC Distribution Width SD 41.5 fl (35.1-43.9); Red Blood Count 4.78 M/mm3 (4.6-6.2); White Blood Count 6.7 K/mm3 (4.4-11.0)
[2017-11-27 12:00] LABS: Scan Indicated on CBC? Y/N NO
[2017-11-27 12:10] LABS: Anion Gap 5 (5-15); BUN 16 mg/dL (7-18); BUN/Creat Ratio 13.8 RATIO (10-20); Calcium,Total 9.2 mg/dL (8.5-10.1); Chloride 105 mmol/L (98-107); Creatinine, Serum 1.16 mg/dL (0.70-1.30); EST Glomerular Filtration Rate 67 mL/min (>60); Est Glom Filt Rate - Afr Amer 81 mL/min (>60); Glucose 101 mg/dL (74-106); Potassium 4.2 mmol/L (3.5-5.1); Sodium Level 140 mmol/L (136-145)
== END ==
PROVIDERS: Family Provider Family Medicine; PCP Family Medicine; Referring Provider Internal Medicine Cardiovascular Disease; Visit Provider Internal Medicine Cardiovascular Disease
DX: I45.10 Unspecified right bundle-branch block (principal); Z86.73 Personal history of transient ischemic attack (TIA), and cerebral infarction without residual deficits; R42 Dizziness and giddiness
CPT/HCPCS: 36415; 80048; 85027

== ENCOUNTER 2017-12-13 08:31 | Day surgery (SDC) | payer MEDICARE, OTHER, SELFPAY ==
[2017-12-12 08:38] VITALS: BMI 29.7
--- NOTE | 2017-12-13 10:06 | CL.IE_ITS ---
Patient: DONNA COLMEAN Study Date: 12/13/2017 Performing: Henry Redmond MD : 1950 Age: 67 Gender: male PROCEDURES PERFORMED [id number] OF LOOP RECORDER INDICATIONS TIA, A-fib PROCEDURE DETAILS The patient was brought to the Catheterization Lab in the postabsorptive nonsedated state. Infor med consent was obtained prior to the procedure. Local anesthetic was given subcutaneously to the lef t subclavian region with Lidocaine 2%. Incision was made to the left subclavicular area. ICM Reveal L INQ was inserted into the pocket. The patient tolerated the procedure well. 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 PROCEDURE MEDICATIONS Versed 1 mg IV Oxygen: 2 L/min via nasal cannula Antibiotic given in appropriate timeframe. Ancef 2 Gm IV @ 12/13/2017 09:43:50 Signed By Henry Redmond MD On 12/13/2017 10:05:47 Henry Redmond MD
== END 2017-12-13 11:15 | disposition home or self-care (01) ==
LOC: CLSP 08:33
PROVIDERS: Family Provider Family Medicine; PCP Family Medicine; Referring Provider Internal Medicine Cardiovascular Disease; Visit Provider Internal Medicine Cardiovascular Disease
DX: I63.9 Cerebral infarction, unspecified (principal); I10 Essential (primary) hypertension; I45.10 Unspecified right bundle-branch block; E78.5 Hyperlipidemia, unspecified; E03.9 Hypothyroidism, unspecified; G47.33 Obstructive sleep apnea (adult) (pediatric); E66.9 Obesity, unspecified; Z68.29 Body mass index [BMI] 29.0-29.9, adult; Z79.02 Long term (current) use of antithrombotics/antiplatelets; Z79.82 Long term (current) use of aspirin; Z79.899 Other long term (current) drug therapy
CPT/HCPCS: 33282; 99152; J7040

== ENCOUNTER → 2018-01-17 08:15 | Outpatient (CLI) | payer MEDICARE, OTHER, SELFPAY ==
[2018-01-09 08:54] VITALS: BMI 29.8
--- NOTE | 2018-01-17 08:17 | CDU_ITS ---
Reason For Study: Carotid Bruit Rt. Velocities/BP Lt. Velocities/BP Prox CCA 97.9/16.4 cm/sec. Prox CCA 92.6/20.5 cm/sec. Mid CCA 76.8/16.4 cm/sec. Mid CCA 88.5/18.2 cm/sec. Dist CCA 55.4/11.4 cm/sec. Dist CCA 70.4/20.5 cm/sec. Prox ICA 50.3/16.9 cm/sec. Prox ICA 53.8/15.7 cm/sec. Mid ICA 61.3/20.8 cm/sec. Mid ICA 57.8/23.6 cm/sec. Dist ICA 76.2/27.5 cm/sec. Dist ICA 86.8/32.8 cm/sec. Rt. ICA/CCA = 0.99. Lt. ICA/CCA = 0.98. Prox ECA 100/12.3 cm/sec. Prox ECA 72.7/9.97 cm/sec. Rt. Vert. 40.5/12.2 cm/sec. Lt. Vert. 46.4/13 cm/sec. Right Extracranial There is heterogeneous, smooth atherosclerotic plaque noted in the right common carotid artery. There is heterogeneous, smooth atherosclerotic plaque noted in the right internal carotid artery. There is intimal thickening but no significant atherosclerotic plaque noted in the right external carotid artery. Antegrade flow is noted in the right vertebral artery. Left Extracranial There is heterogeneous, smooth atherosclerotic plaque noted in the left common carotid artery. There is heterogeneous, irregular atherosclerotic plaque noted in the left internal carotid artery. There is intimal thickening but no significant atherosclerotic plaque noted in the left external carotid artery. Antegrade flow is noted in the left vertebral artery. Procedure Carotid Duplex 33795. Exam performed in department. Interpretation Summary Minimal smooth plague within the right internal carotid with <50% stenosis. Minimal irregular plague within the left internal carotid with <50% stenosis. Normal flow bilateral external carotids Patent and antegrade vertebrals bilaterally Ordering Physician: Benny Baltazar Referring Physician: Liseth Del Valle Performed By: Shamir LONGO RVT, Carrie and Student
[2018-01-17 09:11] LABS: Absolute Lymphocyte Count 1.53 X10^3/ul (0.83-4.51); Absolute Neutrophil Count 3.5 X10^3/uL (2.0-7.7); Basophil# 0.03 X10^3/uL; Basophil% 0.5 % (0-1); Eosinophil# 0.12 X10^3/uL; Eosinophils% 2.1 % (0-5); Hematocrit 44.2 % (40-54); Hemoglobin 15.2 g/dl (13.0-16.5); Lymphocyte # 1.53 X10^3/ul (4.0); Lymphocyte % 27.4 % (19-41); Mean Corp Hgb Conc 34.4 g/gl (32-36); Mean Corpuscular Hgb 32.3 pg (27.0-32.0); Mean Corpuscular Volume 93.8 fL (80-94); Mean Platelet Vol. 11.1 fl (6.2-12.0); Monocyte# 0.43 X10^3/uL; Monocyte% 7.7 % (0-10); Neutrophil # 3.46 X10^3/uL (2.7-7.7); Neutrophil % 61.9 % (47-70); POSITIVE COUNT NO; POSITIVE DIFFERENTIAL NO; POSITIVE MORPHOLOGY NO; Platelet Count 148 K/mm3 (150-450); RBC Distribution Width CV 11.9 % (11.6-14.6); RBC Distribution Width SD 40.5 fl (35.1-43.9); Red Blood Count 4.71 M/mm3 (4.6-6.2); White Blood Count 5.6 K/mm3 (4.4-11.0)
[2018-01-17 09:41] LABS: ALB/GLOB Ratio 1.1 RATIO (0.9-2.4); AST(SGOT) 20 U/L (15-37); Alanine Aminotransfer ALT/SGPT 31 U/L (16-61); Albumin, Serum 3.5 g/dL (3.2-5.0); Alkaline Phosphatase 45 U/L (45-117); Anion Gap 7 (5-15); BUN 17 mg/dL (7-18); BUN/Creat Ratio 15.9 RATIO (10-20); Chloride 106 mmol/L (98-107); Creatinine, Serum 1.07 mg/dL (0.70-1.30); EST Glomerular Filtration Rate 73 mL/min (>60); Est Glom Filt Rate - Afr Amer 88 mL/min (>60); Globulin 3.3 g/dL (2.2-4.2); Glucose 101 mg/dL (74-106); Iron 112 ug/dL (65-175); Potassium 4.3 mmol/L (3.5-5.1); Protein, Total 6.8 g/dL (6.4-8.2); Sodium Level 143 mmol/L (136-145); T4 Free Direct 1.23 ng/dL (0.76-1.46); Thyroid Stim Hormone (TSH) 0.51 uIU/mL (0.358-3.74)
== END ==
PROVIDERS: Family Provider Family Medicine; PCP Family Medicine; Referring Provider Surgery; Visit Provider Surgery
DX: E07.9 Disorder of thyroid, unspecified (principal); M79.609 Pain in unspecified limb; R20.2 Paresthesia of skin; D50.9 Iron deficiency anemia, unspecified; R09.89 Other specified symptoms and signs involving the circulatory and respiratory systems; Z86.73 Personal history of transient ischemic attack (TIA), and cerebral infarction without residual deficits
CPT/HCPCS: 36415; 80053; 83540; 84439; 84443; 85025; 93880

== ENCOUNTER 2018-01-24 07:19 | Day surgery (SDC) | payer MEDICARE, OTHER, SELFPAY ==
[2018-01-09 08:54] VITALS: BMI 29.8
[2018-01-24] VITALS (7 sets, daily range): BP systolic 99–131; BP diastolic 59–84; PULSE 60–68; RESP 16–18; TEMP 36.1–36.8; O2SAT 95–99; BMI 29.6
--- NOTE | 2018-01-24 | COLBX_PTH ---
PATIENT: DONNA COLEMAN LOC: EN U#:[id number] AGE/SX: 67/M ROOM: RE01/24/[address]: Dr. Benny Baltazar MD : 1950 BED: DIS: 01/24/2018 SPEC #: [id number] RECD: 01/24/18 14:06 STATUS: EDI GALI #: [id number] TESSY: 01/24/18 00:[address]: Benny Baltazar DEPT: SURGICAL PATHOLOGY RECD BY: Denilson Lane ENTERED: 01/24/18 14:07 SP TYPE: COLON BX MAGALI DR: Dr. Liseth Del Valle DO Tissues: A - COLON BIOPSY B - Rectum, NOS Procedures: Surgery Specimen Level IV HEADER OPERATION: Colonoscopy (MAC) PRE-OP DIAGNOSIS: Rectal bleeding; family history of colon cancer TISSUE SUBMITTED: A - Polyp hepatic flexure, B - Polyp rectum MICROSCOPIC DIAGNOSIS A. Polyp at hepatic flexure, biopsy: Fragments of tubular adenoma. Fragments of fecal material. B. Polyp rectum, biopsy: Fragments of tubular adenoma. ANGEL LUIS:adama 01/27/18 MICROSCOPIC DESCRIPTION Slides are reviewed. GROSS DESCRIPTION A - Received in fixative is one container labeled with the patient's name and designated polyp hepatic flexure. The specimen consists of multiple irregular fragments of frias soft tissue mixed with fecal material that in aggregate measure 1 x 0.5 x 0.1 cm. The specimen is totally submitted in one cassette. B - Received in fixative is one container labeled with the patient's name and designated polyp rectum. The specimen consists of multiple fragments of frias-pink polypoid pieces that in aggregate measure 2 x 0.6 x 0.3 cm. The entire specimen is submitted in one cassette. / ANGEL LUIS:adama 01/24/18 TC:1 [facility]: [id number] x2
--- NOTE | 2018-01-24 09:37 | OP.ENDO_ITS ---
Patient Name: Trevor Gresham Procedure Date: 01/24/2018 8:46 AM Date of : 1950 Age: 67 Procedure: Colonoscopy Indications: Rectal bleeding Providers: Benny Baltazar MD Referring MD: Liseth Del Valle Medicines: See the Anesthesia note for documentation of the administered medications Patient Profile: Last Colonoscopy: none. The patient's first colonoscopy is today. Complications: No immediate complications. Procedure: Pre-Anesthesia Assessment: - Prior to the procedure, a History and Physical was performed, and patient medications and allergies were reviewed. The patient's tolerance of previous anesthesia was also reviewed. The risks and benefits of the procedure and the sedation options and risks were discussed with the patient. All questions were answered, and informed consent was obtained. Prior Anticoagulants: The patient has taken no previous anticoagulant or antiplatelet agents. ASA Grade Assessment: II - A patient with mild systemic disease. After reviewing the risks and benefits, the patient was deemed in satisfactory condition to undergo the procedure. After I obtained informed consent, the scope was passed under direct vision. Throughout the procedure, the patient's blood pressure, pulse, and oxygen saturations were monitored continuously. The colonoscope was introduced through the anus and advanced to the cecum, identified by appendiceal orifice and ileocecal valve. The colonoscopy was performed without difficulty. The patient tolerated the procedure well. The quality of the bowel preparation was good. The ileocecal valve and the appendiceal orifice were photographed. Scope In: 8:58:25 AM Scope Withdrawal Time 0 hours 26 minutes 2 seconds Scope Out: 9:29:49 AM Total Procedure Duration Time 0 hours 31 minutes 24 seconds Findings: The perianal exam findings include non-thrombosed external hemorrhoids, non-thrombosed internal hemorrhoids and internal hemorrhoids that prolapse with straining, but require manual replacement into the anal canal (Grade III). The digital rectal exam findings include enlarged prostate. Pertinent negatives include normal sphincter tone. A 9 mm polyp was found in the hepatic flexure. The polyp was sessile. The polyp was removed with a hot snare. Resection and retrieval were complete. To prevent bleeding post-intervention, two hemostatic clips were successfully placed. There was no bleeding at the end of the procedure. A 10 mm polyp was found in the proximal sigmoid colon. The polyp was semi-pedunculated. The polyp was removed with a hot snare. Resection and retrieval were complete. A 11 mm polyp was found in the rectum. The polyp was sessile. The polyp was removed with a hot snare. Resection and retrieval were complete. Multiple diverticula were found in the sigmoid colon and descending colon. Impression: - Non-thrombosed external hemorrhoids, non-thrombosed internal hemorrhoids and internal hemorrhoids that prolapse with straining, but require manual replacement into the anal canal (Grade III) found on perianal exam. - Enlarged prostate found on digital rectal exam. - One 9 mm polyp at the hepatic flexure, removed with a hot snare. Resected and retrieved. Clips were placed. - One 10 mm polyp in the proximal sigmoid colon, removed with a hot snare. Resected and retrieved. - One 11 mm polyp in the rectum, removed with a hot snare. Resected and retrieved. - Diverticulosis in the sigmoid colon and in the descending colon. Recommendation: - Discharge patient to home. - Resume previous diet. - Continue present medications. - Repeat colonoscopy in 1 year for surveillance based on pathology results. - Return to GI office in 1 week. Procedure Code(s): --- Professional --- 60701, Colonoscopy, flexible; with removal of tumor(s), polyp(s), or other lesion(s) by snare technique Diagnosis Code(s): --- Professional --- K64.2, Third degree hemorrhoids K64.4, Residual hemorrhoidal skin tags D12.3, Benign neoplasm of transverse colon (hepatic flexure or splenic flexure) D12.5, Benign neoplasm of sigmoid colon K62.1, Rectal polyp K62.5, Hemorrhage of anus and rectum K57.30, Diverticulosis of large intestine without perforation or abscess without bleeding N40.0, Benign prostatic hyperplasia without lower urinary tract symptoms CPT copyright 2017 [employer]. All rights reserved. The codes documented in this report are preliminary and upon dye house wheel operator review may be revised to meet current compliance requirements. Benny Baltazar MD 01/24/2018 9:36:43 AM This report has been signed electronically. Number of Addenda: 0 Note Initiated On: 01/24/2018 8:46 AM
--- OUTSIDE RECORDS SUMMARY | 2018-03-11 19:01 | XMS RPT_ITS ---
:1950 Author Organization OHIP Support Name Relationship Address Phone DWIGHT COLEMAN Unavailable [address] + [place] [address] CHEO ROSAS Unavailable [address] + [place] [address] R Unavailable Unavailable Unavailable GINTHER DWIGHT Unavailable [address] + [place] [address] CHEO ROSAS Unavailable [address] + [facility] [place] [address] R Unavailable Unavailable Unavailable GINTHER, DWIGHT Unavailable [address] + [place] [address] CHEO ROSAS Unavailable [address] + [place] [address] R Unavailable Unavailable Unavailable GINTHER, DWIGHT Unavailable [address] + [place] [address] CHEO ROSAS Unavailable [address] + [facility] [place] [address] R Unavailable Unavailable Unavailable GINTHER, DWIGHT Unavailable [address] + [place] [address] CHEO ROSAS Unavailable [address] + [facility] [address] R Unavailable Unavailable Unavailable GINTHER, DWIGHT Unavailable [address] + [place] [address] CHEO ROSAS Unavailable [address] + [facility] [place] [address] R Unavailable Unavailable Unavailable GINTHER, DWIGHT Unavailable [address] + [place] [address] CHEO ROSAS Unavailable [address] + [place] [address] R Unavailable Unavailable Unavailable GINTHER, DWIGHT Unavailable [address] + [place] [address] ALISON CHEO Unavailable [address] + [place] [address] R Unavailable Unavailable Unavailable GINTHER, DWIGHT Unavailable [address] + [place] [address] R Unavailable Unavailable Unavailable GINTHER, DWIGHT Unavailable [address] + [place] [address] R Unavailable Unavailable Unavailable GINTHER, DWIGHT Unavailable [address] + [place] [address] R Unavailable Unavailable Unavailable GINTHER, DWIGHT Unavailable [address] + [place] [address] CHEO ROSAS Unavailable [address] + [place] [address] R Unavailable Unavailable Unavailable GINTHER, DWIGHT Unavailable [address] + [place] [address] R Unavailable Unavailable Unavailable GINTHER, DWIGHT Unavailable [address] + [place] [address] R Unavailable Unavailable Unavailable GINTHER, DWIGHT Unavailable [address] + [place] [address] CHEO ROSAS Unavailable [address] + [place] [address] R Unavailable Unavailable Unavailable GINTHER, DWIGHT Unavailable [address] + [place] [address] R Unavailable Unavailable Unavailable GINTHER, DWIGHT Unavailable [address] + [place] [address] R Unavailable Unavailable Unavailable GINTHER, DWIGHT Unavailable [address] + [place] [address] R Unavailable Unavailable Unavailable GINTHER, DWIGHT Unavailable [address] + [place] [address] R Unavailable Unavailable Unavailable GINTHER, DWIGHT Unavailable [address] + [place] [address] R Unavailable Unavailable Unavailable GINTHER, DWIGHT Unavailable [address] + [place] [address] R Unavailable Unavailable Unavailable GINTHER, DWIGHT Unavailable [address] + [place] [address] R Unavailable Unavailable Unavailable Care Team Providers Name Role Phone MakaylaJoaquín Attending Unavailable Joaquín Benavides Referring Unavailable Malys, Liseth Primary Care Unavailable Nyla, Henry Attending Unavailable Nyla, Henry Referring Unavailable Cebul, Benny Attending Unavailable Malys, Liseth Attending Unavailable Malys, Liseth Primary Care Unavailable Malys, Liseth Primary Care Unavailable White, Emily Admitting Unavailable White, Emily Referring Unavailable Rosey, Sidney S. Consulting Unavailable Jopperi, Hudson Attending Unavailable White, Emily Admitting Unavailable White, Emily Attending Unavailable White, Emily Referring Unavailable Malys, Liseth Primary Care Unavailable White, Emily Consulting Unavailable White, Emily Admitting Unavailable Jopperi, Hudson Attending Unavailable White, Emily Referring Unavailable Malys, Liseth Primary Care Unavailable Rosey, Sidney S. Consulting Unavailable Jopperi, Hudson Consulting Unavailable Malys, Liseth Primary Care Unavailable Karol Pearson Attending Unavailable Jopperi, Hudson Attending Unavailable Jopperi, Hudson Referring Unavailable Malys, Liseth Primary Care Unavailable Miedel, Pily Attending Unavailable Malys, Liseth Primary Care Unavailable Miedel, Pily Attending Unavailable Miedel, Pily Referring Unavailable Miedel, Pily Primary Care Unavailable George Obrien Attending Unavailable Malys, Liseth Primary Care Unavailable Nyla, Henry Attending Unavailable White, Emily Referring Unavailable Myriam Griffin Attending Unavailable Nyla, Ursa Attending Unavailable Miedel, Pily Referring Unavailable Nyla, Henry Attending Unavailable Nyla, Henry Referring Unavailable Malys, Liseth Primary Care Unavailable Nyla, Henry Attending Unavailable Malys, Liseth Primary Care Unavailable Nyla, Henry Referring Unavailable Nyla, Ursa Attending Unavailable Nyla, Henry Referring Unavailable JanabulBenny Attending Unavailable Cetarynl, Benny Attending Unavailable Janabul, Benny Referring Unavailable Malys, Liseth Primary Care Unavailable Delaney Benny Attending Unavailable Cebul, Benny Referring Unavailable Malys, Liseth Primary Care Unavailable Cebul, Benny Attending Unavailable Cebul, Benny Referring Unavailable Malys, Liseth Primary Care Unavailable Cebul, Benny Consulting Unavailable HANSEL RAMSEY JR J Attending Unavailable RAMSEY JR, HANSEL J Referring Unavailable RAMSEY , HANSEL Calhonu Referring Unavailable JERSEY WILDER (PAC) Attending Unavailable EFRAÍN, LISETH A Referring Unavailable JERSEY WILDER (PAC) Referring Unavailable JERSEY WILDER (PAC) Attending Unavailable JERSEY WILDER (PAC) Referring Unavailable RAMSEY HANSEL FLORES Attending Unavailable RAMSEY JR, HANSEL Calhoun Attending Unavailable RAMSEY JR, HANSEL J Referring Unavailable RAMSEY JR, HANSEL J Attending Unavailable RAMSEY JR, HANSEL J Referring Unavailable RAMSEYHANSEL Attending Unavailable IMCA Referring Unavailable IMCA Primary Care Unavailable HANSEL RAMSEY Attending Unavailable HANSEL RAMSEY Referring Unavailable IMCA Primary Care Unavailable HANSEL RAMSEY Attending Unavailable HANSEL RAMSEY Referring Unavailable IMCA Primary Care Unavailable PROBLEMS PROBLEMS DATE TYPE CONDITION / CODE ATTENDING STATUS SOURCE 12/02/2017 Active Orthostatic BRAULIO FLORES, Active [place] hypotension / [facility] Other I95.1(ICD-10) [place] Repository 03/05/2018 Active Personal history of BRAULIO FLORES, [facility] transient ischemic [facility] Other attack (TIA), and [place] cerebral infarction Repository without residual deficits / Z86.73(ICD-10) 12/02/2017 Admitting Unknown / HANSEL RAMSEY General diagnosis UNK(Unknown) [facility] Repository 02/25/2018 Unknown K62.5 - Hemorrhage of Cebujohn, Benny Active [place] anus and rectum / Community K62.5(ICD-10) Hospital Repository 02/25/2018 Unknown K62.1 - Rectal polyp Cebul, Benny Active [place] / K62.1(ICD-10) [facility] Hospital Repository 02/25/2018 Unknown 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, 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 / D12.5(ICD-10) Hospital Repository 02/25/2018 Unknown 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, 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 / Hospital D12.3(ICD-10) Repository 02/25/2018 Unknown K64.2 - Third degree Cebul, Benny Active [place] hemorrhoids / Community K64.2(ICD-10) Hospital Repository 02/25/2018 Unknown K57.30 - Cebul, Benny Active [place] Diverticulosis of Community large intestine Hospital without perforation Repository or abscess without bleeding / K57.30(ICD-10) 01/17/2018 Unknown I63.9 - Cerebral CebuBenny lopez Active [place] infarction, Community unspecified / Hospital I63.9(ICD-10) Repository 01/17/2018 Unknown I10 - Essential Benny Baltazar Active [place] (primary) Community hypertension / Hospital I10(ICD-10) Repository 01/17/2018 Unknown R09.89 - Other CebuBenny lopez Active [place] specified symptoms Community and signs involving Hospital the circulatory and Repository respiratory systems / R09.89(ICD-10) 01/17/2018 Unknown E07.9 - Disorder of Benny Baltazar Active [place] thyroid, unspecified Community / E07.9(ICD-10) Hospital Repository 01/17/2018 Unknown M79.609 - Pain in Benny Baltazar Active [place] unspecified limb / Community M79.609(ICD-10) Hospital Repository 01/17/2018 Unknown R20.2 - Paresthesia CeBenny valverde Active [place] of skin / Community R20.2(ICD-10) Hospital Repository 01/17/2018 Unknown R07.9 - Chest pain, Benny Baltazar Active [place] unspecified / Community R07.9(ICD-10) Hospital Repository 01/17/2018 Unknown D50.9 - Iron Benny Baltazar Active [place] deficiency anemia, Community unspecified / Hospital D50.9(ICD-10) Repository 01/09/2018 Unknown Z80.0 - Family Benny Baltazar Active [place] history of malignant Community neoplasm of digestive Hospital organs / Repository Z80.0(ICD-10) 01/09/2018 Unknown Z12.11 - Encounter Benny Baltazar Active [place] for screening for Community malignant neoplasm of Hospital colon / Repository Z12.11(ICD-10) 11/27/2017 Unknown I45.10 - Unspecified Nyla, Henry Active [place] right bundle-branch Community block / Hospital I45.10(ICD-10) Repository 11/22/2017 Unknown Z12.5 - Encounter for Pily Schultz Active [place] screening for Community malignant neoplasm of Hospital prostate / Repository Z12.5(ICD-10) 12/31/2017 Unknown R42 - Dizziness and Ally, Active [place] giddiness / [facility] Community R42(ICD-10) Hospital Repository 11/06/2017 Active Low back pain / NA Active [place] M54.5(ICD-10) Clinic Main [place] Repository 11/06/2017 Active Other chronic pain / NA Active [place] G89.29(ICD-10) Clinic Main [place] Repository 11/01/2017 Active Spinal stenosis, BRAULIO FLORES, Active [place] lumbar region without [facility] Other neurogenic [place] claudication / Repository M48.061(ICD-10) 11/01/2017 Active Obstructive sleep BRAULIO FLORES, Active [place] apnea (adult) [facility] Other (pediatric) / [place] G47.33(ICD-10) Repository 11/01/2017 Active Cerebral infarction, BRAULIO FLORES Active [place] unspecified / [facility] Other I63.9(ICD-10) [place] Repository 07/10/2016 Active Essential (primary) BRAULIO FLORES Active [place] hypertension / [facility] Other I10(ICD-10) [place] Repository 01/24/2018 Unknown G45.9 - Transient Nyla, Ursa Active [place] cerebral ischemic Community attack, unspecified / Hospital G45.9(ICD-10) Repository 11/22/2017 Unknown R00.1 - Bradycardia, Nyla, Henry Active [place] unspecified / Community R00.1(ICD-10) Hospital Repository 11/22/2017 Unknown I44.0 - Nyla, Henry Active [place] Atrioventricular Community block, first degree / Hospital I44.0(ICD-10) Repository 07/09/2017 Active Unknown / BRAULIO FLORES, Active [place] UNK(Unknown) [facility] [place] Repository PROCEDURES PROCEDURES No Procedure Records FoundRESULTS RESULTS PROGRESS Observed: 03/05/2018 Status: COMPLETED Source: [facility] 8:12 AM CLINIC OTHER CAMPUS REPOSITORY HNO ID: [id number] Author: Hansel Ramsey Jr. Service: (none) Author Type: Physician Type: Progress Notes Filed: 03/05/2018 9:47 AM Note Text: ESTABLISHED PATIENT VISIT HISTORY OF PRESENT ILLNESS: Trevor Coleman is a 68 year old male, Ht 6' (1.829 m) BMI 30.38 kg/m2 with a PMH significant for: 1. Cerebrovascular accident (CVA), unspecified mechanism (HCC) - ICD9: 434.91, ICD10: I63.9 (primary diagnosis) Overall non-focal neuro exam last visit with no changes in recs. ? 2. Obstructive sleep apnea (adult) (pediatric) - ICD9: 327.23, ICD10: G47.33 AHI <5 by [facility] and thus cannot get PAP therapy. Rx: positional therapy. 3. Orthostatic hypotension - ICD9: 458.0, ICD10: I95.1 Uncertain if cause of symptoms of just not feeling right. Water intake and compression stockings. Reduced Norvasc to 7.5mg daily last visit. 4. Spinal stenosis, lumbar region, without neurogenic claudication - ICD9: 724.02, ICD10: M48.061 Referred to spine. 5. Fatigue: Unclear etiology. Pt did have loop recorder placed. Reportedly no arrhythmias per patient that have been reported. Placed in 12/2017. Patient called to check today to see if any changes on recorder and told no. Patient reports lightheadedness not as frequent or severe but still gets from time to time. BP stable in the 130/80s. Again, last visit lowered Norvasc dose. States lightheadedness about twice per week and can last couple hours or all day. No syncope. States cardiology said nothing about it. Lightheadedness occurs with positional change (worse when standing) but can happen if sitting as well. No other changes in medications except that thyroid dose was decreased. Again uncertain if improving dizziness/lightheadedness. This is not vertigo. Only other new medical condition is that he had colonoscopy and had polyps removed that were benign. No new focal neuro deficits. Patient is wearing compression stockings. Good intake of water per patient. Has not seen spine, as reports that lumbar pain not bothering him much, but also states he has not been doing much. Orthostatics checked Sitting: BP 168/94 with pulse of 60 Standing: BP 137/89 with pulse of 66 REVIEW OF SYSTEMS GENERAL:No weight loss, malaise or fevers. HEENT:Negative for frequent or significant headaches, No changes in hearing or vision, no nose bleeds or other nasal problems NECK:Negative for lumps, goiter, pain and significant neck swelling RESPIRATORY: Negative for cough, wheezing or shortness of breath. CARDIOVASCULAR: Negative for chest pain, leg swelling or palpitations. GASTROINTESTINAL: Negative for abdominal discomfort, blood in stools or black stools or change in bowel habits GENITOURINARY: No history of dysuria, frequency or incontinence MUSCULOSKELETAL: Negative for joint pain or swelling, back pain or muscle pain. NEUROLOGIC:Negative for focal numbness or weakness, headaches and dizziness or syncope, vision changes, speech/languag changes - EXCEPT that as per HPI above. SKIN:Negative for lesions, rash, and itching. PSYCHIATRIC: Negative for sleep disturbance, mood disorder and recent psychosocial stressors. HEMATOLOGIC/LYMPHATIC/IMMUNOLOGIC:Negative for prolonged bleeding, bruising easily or swollen nodes. ENDOCRINE: Negative for cold or heat intolerance, polyuria, polydipsia and goiter. The remainder of the ROS was reviewed and is negative. LAB/IMAGING: Those performed since patient's last visit have been reviewed. Glucose (mg/dL) Date Value 09/19/2016 109 (H) BUN (mg/dL) Date Value 09/19/2016 20 Creatinine (mg/dL) Date Value 09/19/2016 1.07 Sodium (mmol/L) Date Value 09/19/2016 140 Potassium (mmol/L) Date Value 09/19/2016 4.1 Chloride (mmol/L) Date Value 09/19/2016 102 CO2 (mmol/L) Date Value 09/19/2016 28 Protein, Total (g/dL) Date Value 09/19/2016 6.3 Albumin (g/dL) Date Value 09/19/2016 3.9 Calcium (mg/dL) Date Value 09/19/2016 9.4 Alkaline Phosphatase (U/L) Date Value 09/19/2016 37 Bilirubin, Total (mg/dL) Date Value 09/19/2016 1.2 AST (U/L) Date Value 09/19/2016 21 ALT (U/L) Date Value 09/19/2016 33 Rheumatoid Factor (IU/mL) Date Value 06/09/2009 14 Hep C Antibody IA (no units) Date Value 08/11/2015 Negative MEDICATIONS: amLODIPine (NORVASC) 5 mg tablet Take 1 tablet by mouth once daily. clopidogrel (PLAVIX) 75 mg tablet Take 75 mg by mouth once daily. atorvastatin (LIPITOR) 40 mg tablet Take 1 tablet by mouth once daily. aspirin, enteric coated (ASPIRIN, ENTERIC COATED) 81 mg EC tablet Take 81 mg by mouth once daily. levothyroxine (LEVOXYL) 175 mcg tablet Take 1 tablet by mouth once daily. Take on empty stomach. For thyroid. triamcinolone acetonide (KENALOG) 0.1 % cream Apply to affected area twice daily. hydrocortisone 2.5 % ointment Apply to affected area twice daily. Cholecalciferol, Vitamin D3, (VITAMIN D-3) 2,000 unit tab Take 1 tablet by mouth once daily. amLODIPine (NORVASC) 2.5 mg tablet Take 1 tablet by mouth once daily. methylPREDNISolone (MEDROL, NAM,) 4 mg Dose-Pack Take as directed on package. fexofenadine-pseudoephedrine (RAHEL-D) 60-120 mg per tablet Take 1 tablet by mouth every 12 hours as needed (sinus congestion/cold symptoms). HISTORIES PAST MEDICAL HISTORY Diagnosis Date - Hypertension - Stroke (HCC) FAMILY HISTORY Problem Relation Age of Onset - None Mother - Heart Father BYPASS SOCIAL HISTORY Social History Substance Use Topics - Smoking status: Never Smoker - Smokeless tobacco: Never Used - Alcohol use Yes Comment: rare PHYSICAL EXAMINATION BP 135/81 Pulse 66 Resp 17 Ht 6' (1.829 m) Wt 224 lb (101.6 kg) SpO2 98% BMI 30.38 kg/m? GENERAL EXAM: General appearance: NAD, pleasant. HEENT: NC/AT, nasal congestion absent, no oral lesions, membranes moist. NECK: No masses, supple. Lungs: CTA bilaterally. No wheezes present. CV: RRR nl S1, S2. No carotid bruits. Extr: No cyanosis, clubbing or edema. Extremity pulses palpable and normal. Skin: Cool to touch. NEUROLOGICAL EXAM: General: Awake, alert, oriented x3 (person,place,time), speech fluent, no dysarthria; comprehension, naming, repetition intact. Fund of knowledge grossly normal by MOCA. CN: PERRL, fundi with no evidence of papilledema, EOMI and without nystagmus, VFF to confrontation, facial sensation and strength are normal and symmetric, hearing is intact to finger rub bilaterally, palate and tongue movements are intact and symmetric. SCM and trapezius strength normal. Motor: Normal tone, bulk and strength (5/5) bilaterally (throughout extremities x4).. Coordination: FNF, MATY, HTS intact. No tremors. Sensation: Light touch and pin intact throughout. No evidence of neglect. Gait: Narrow based and stable with normal stride and arm swing. Romberg normal. Assessment and Plan: ASSESSMENT/PLAN: 1. Orthostatic hypotension - ICD9: 458.0, ICD10: I95.1 (primary diagnosis) Patient continues to be orthostatic, although some improvement since decreasing Norvasc dose and using compression stockings. No cardiac arrhythmias noted yet. D/w pt possible tilt testing, but I am concerned that orthostatic hypotension may be secondary to Norvasc. As I cannot see patient regularly, I will ask patient's PCP Dr. Del Valle if she could attempt to change him from Norvasc to perhaps an ARB. Purpose is to see if orthostatic hypotension resolves. He will need close follow up during that process. Goal BP should still be <140/90. Appreciate Dr Del Valle's help in this treatment change. 2. History of stroke - ICD9: V12.54, ICD10: Z86.73 No new focal deficits. Neuro exam stable. BP goal <140/90. Glucose goal <140. Continue dual antiplt therapy for now, but may consider change to Plavix only in the future (pt not wanting to make change at this time). Reviewed SE and ADRs of meds. 3. Obstructive sleep apnea (adult) (pediatric) - ICD9: 327.23, ICD10: G47.33 Encouraged pt to sleep off supine. Does not qualify for PAP, but does have positional ASYA strictly by AHI numbers. Hansel Ramsey MD I spent 40 minutes in the visit, with more than 50% of the total [id number] time of the visit in counseling / coordination of care. CNOV Observed: 03/05/2018 Status: COMPLETED Source: [facility] 8:00 AM CLINIC OTHER CAMPUS REPOSITORY Office Visit (NEURBA) TREVOR COLEMAN ([id number]) 1950 M Date Time Provider Department 03/05/18 8:00 AM HANSEL RAMSEY JR During your visit today, we recorded the following information about you: Pulse Respiration Blood pressure Weight 66/minute 17/minute 135/81 101.6 kg Height 1.829 m Hansel Ramsey MD 03/05/2018 9:47 AM Signed ESTABLISHED PATIENT VISIT HISTORY OF PRESENT ILLNESS: Trevor Coleman is a 68 year old male, Ht 6' (1.829 m) BMI 30.38 kg/m2 with a PMH significant for: 1. Cerebrovascular accident (CVA), unspecified mechanism (HCC) - ICD9: 434.91, ICD10: I63.9 (primary diagnosis) Overall non-focal neuro exam last visit with no changes in recs. ? 2. Obstructive sleep apnea (adult) (pediatric) - ICD9: 327.23, ICD10: G47.33 AHI <5 by [facility] and thus cannot get PAP therapy. Rx: positional therapy. 3. Orthostatic hypotension - ICD9: 458.0, ICD10: I95.1 Uncertain if cause of symptoms of just not feeling right. Water intake and compression stockings. Reduced Norvasc to 7.5mg daily last visit. 4. Spinal stenosis, lumbar region, without neurogenic claudication - ICD9: 724.02, ICD10: M48.061 Referred to spine. 5. Fatigue: Unclear etiology. Pt did have loop recorder placed. Reportedly no arrhythmias per patient that have been reported. Placed in 12/2017. Patient called to check today to see if any changes on recorder and told no. Patient reports lightheadedness not as frequent or severe but still gets from time to time. BP stable in the 130/80s. Again, last visit lowered Norvasc dose. States lightheadedness about twice per week and can last couple hours or all day. No syncope. States cardiology said nothing about it. Lightheadedness occurs with positional change (worse when standing) but can happen if sitting as well. No other changes in medications except that thyroid dose was decreased. Again uncertain if improving dizziness/lightheadedness. This is not vertigo. Only other new medical condition is that he had colonoscopy and had polyps removed that were benign. No new focal neuro deficits. Patient is wearing compression stockings. Good intake of water per patient. Has not seen spine, as reports that lumbar pain not bothering him much, but also states he has not been doing much. Orthostatics checked Sitting: BP 168/94 with pulse of 60 Standing: BP 137/89 with pulse of 66 REVIEW OF SYSTEMS GENERAL:No weight loss, malaise or fevers. HEENT:Negative for frequent or significant headaches, No changes in hearing or vision, no nose bleeds or other nasal problems NECK:Negative for lumps, goiter, pain and significant neck swelling RESPIRATORY: Negative for cough, wheezing or shortness of breath. CARDIOVASCULAR: Negative for chest pain, leg swelling or palpitations. GASTROINTESTINAL: Negative for abdominal discomfort, blood in stools or black stools or change in bowel habits GENITOURINARY: No history of dysuria, frequency or incontinence MUSCULOSKELETAL: Negative for joint pain or swelling, back pain or muscle pain. NEUROLOGIC:Negative for focal numbness or weakness, headaches and dizziness or syncope, vision changes, speech/languag changes - EXCEPT that as per HPI above. SKIN:Negative for lesions, rash, and itching. PSYCHIATRIC: Negative for sleep disturbance, mood disorder and recent psychosocial stressors. HEMATOLOGIC/LYMPHATIC/IMMUNOLOGIC:Negative for prolonged bleeding, bruising easily or swollen nodes. ENDOCRINE: Negative for cold or heat intolerance, polyuria, polydipsia and goiter. The remainder of the ROS was reviewed and is negative. LAB/IMAGING: Those performed since patient's last visit have been reviewed. Glucose (mg/dL) Date Value 09/19/2016 109 (H) BUN (mg/dL) Date Value 09/19/2016 20 Creatinine (mg/dL) Date Value 09/19/2016 1.07 Sodium (mmol/L) Date Value 09/19/2016 140 Potassium (mmol/L) Date Value 09/19/2016 4.1 Chloride (mmol/L) Date Value 09/19/2016 102 CO2 (mmol/L) Date Value 09/19/2016 28 Protein, Total (g/dL) Date Value 09/19/2016 6.3 Albumin (g/dL) Date Value 09/19/2016 3.9 Calcium (mg/dL) Date Value 09/19/2016 9.4 Alkaline Phosphatase (U/L) Date Value 09/19/2016 37 Bilirubin, Total (mg/dL) Date Value 09/19/2016 1.2 AST (U/L) Date Value 09/19/2016 21 ALT (U/L) Date Value 09/19/2016 33 Rheumatoid Factor (IU/mL) Date Value 06/09/2009 14 Hep C Antibody IA (no units) Date Value 08/11/2015 Negative MEDICATIONS: amLODIPine (NORVASC) 5 mg tablet Take 1 tablet by mouth once daily. clopidogrel (PLAVIX) 75 mg tablet Take 75 mg by mouth once daily. atorvastatin (LIPITOR) 40 mg tablet Take 1 tablet by mouth once daily. aspirin, enteric coated (ASPIRIN, ENTERIC COATED) 81 mg EC tablet Take 81 mg by mouth once daily. levothyroxine (LEVOXYL) 175 mcg tablet Take 1 tablet by mouth once daily. Take on empty stomach. For thyroid. triamcinolone acetonide (KENALOG) 0.1 % cream Apply to affected area twice daily. hydrocortisone 2.5 % ointment Apply to affected area twice daily. Cholecalciferol, Vitamin D3, (VITAMIN D-3) 2,000 unit tab Take 1 tablet by mouth once daily. amLODIPine (NORVASC) 2.5 mg tablet Take 1 tablet by mouth once daily. methylPREDNISolone (MEDROL, NAM,) 4 mg Dose-Pack Take as directed on package. fexofenadine-pseudoephedrine (RAHEL-D) 60-120 mg per tablet Take 1 tablet by mouth every 12 hours as needed (sinus congestion/cold symptoms). HISTORIES PAST MEDICAL HISTORY Diagnosis Date - Hypertension - Stroke (HCC) FAMILY HISTORY Problem Relation Age of Onset - None Mother - Heart Father BYPASS SOCIAL HISTORY Social History Substance Use Topics - Smoking status: Never Smoker - Smokeless tobacco: Never Used - Alcohol use Yes Comment: rare PHYSICAL EXAMINATION BP 135/81 Pulse 66 Resp 17 Ht 6' (1.829 m) Wt 224 lb (101.6 kg) SpO2 98% BMI 30.38 kg/m? GENERAL EXAM: General appearance: NAD, pleasant. HEENT: NC/AT, nasal congestion absent, no oral lesions, membranes moist. NECK: No masses, supple. Lungs: CTA bilaterally. No wheezes present. CV: RRR nl S1, S2. No carotid bruits. Extr: No cyanosis, clubbing or edema. Extremity pulses palpable and normal. Skin: Cool to touch. NEUROLOGICAL EXAM: General: Awake, alert, oriented x3 (person,place,time), speech fluent, no dysarthria; comprehension, naming, repetition intact. Fund of knowledge grossly normal by MOCA. CN: PERRL, fundi with no evidence of papilledema, EOMI and without nystagmus, VFF to confrontation, facial sensation and strength are normal and symmetric, hearing is intact to finger rub bilaterally, palate and tongue movements are intact and symmetric. SCM and trapezius strength normal. Motor: Normal tone, bulk and strength (5/5) bilaterally (throughout extremities x4).. Coordination: FNF, MATY, HTS intact. No tremors. Sensation: Light touch and pin intact throughout. No evidence of neglect. Gait: Narrow based and stable with normal stride and arm swing. Romberg normal. Assessment and Plan: ASSESSMENT/PLAN: 1. Orthostatic hypotension - ICD9: 458.0, ICD10: I95.1 (primary diagnosis) Patient continues to be orthostatic, although some improvement since decreasing Norvasc dose and using compression stockings. No cardiac arrhythmias noted yet. D/w pt possible tilt testing, but I am concerned that orthostatic hypotension may be secondary to Norvasc. As I cannot see patient regularly, I will ask patient's PCP Dr. Del Valle if she could attempt to change him from Norvasc to perhaps an ARB. Purpose is to see if orthostatic hypotension resolves. He will need close follow up during that process. Goal BP should still be <140/90. Appreciate Dr Del Valle's help in this treatment change. 2. History of stroke - ICD9: V12.54, ICD10: Z86.73 No new focal deficits. Neuro exam stable. BP goal <140/90. Glucose goal <140. Continue dual antiplt therapy for now, but may consider change to Plavix only in the future (pt not wanting to make change at this time). Reviewed SE and ADRs of meds. 3. Obstructive sleep apnea (adult) (pediatric) - ICD9: 327.23, ICD10: G47.33 Encouraged pt to sleep off supine. Does not qualify for PAP, but does have positional ASYA strictly by AHI numbers. Hansel Ramsey MD I spent 40 minutes in the visit, with more than 50% of the total qnwj-bi-axnu time of the visit in counseling / coordination of care. Referring Provider: HANSEL RAMSEY JR [[id number]] Allergies As of Date: 03/05/2018 Noted Allergy Reaction ADHESIVE 07/10/2016 2 - Rash SULFA (SULFONAMIDE ANTIBIOTICS) 02/08/2005 TAPAZOLE (METHIMAZOLE) 01/25/2010 2 - Rash Date Reviewed: 03/05/2018 Reviewed by: Hansel Ramsey Jr. - Fully Assessed Reason for Visit: Follow Up [171] Primary Visit Diagnosis:Orthostatic hypotension [I95.1] Other Visit Diagnoses:History of stroke [Z86.73] Obstructive sleep apnea (adult) (pediatric) [G47.33] Prescriptions as of 03/05/2018 Sig: AMLODIPINE 5 MG TABLET Take 1 tablet by mouth once d* CLOPIDOGREL 75 MG TABLET Take 75 mg by mouth once lokesh* ATORVASTATIN 40 MG TABLET Take 1 tablet by mouth once d* ASPIRIN 81 MG TABLET,DELAYED * Take 81 mg by mouth once lokesh* LEVOTHYROXINE 175 MCG TABLET Take 1 tablet by mouth once d* Patient taking differently: Take 188 mcg by mouth once da* TRIAMCINOLONE ACETONIDE 0.1 %* Apply to affected area twice* HYDROCORTISONE 2.5 % TOPICAL * Apply to affected area twice* CHOLECALCIFEROL (VITAMIN D3) * Take 1 tablet by mouth once d* AMLODIPINE 2.5 MG TABLET Take 1 tablet by mouth once d* METHYLPREDNISOLONE 4 MG TABLE* Take as directed on package. Patient not taking: Reported on 11/12/2017 FEXOFENADINE 60 MG-PSEUDOEPHE* Take 1 tablet by mouth every * Patient not taking: Reported on 11/12/2017 Problem List As Of Date 03/05/2018 Noted Resolved Hemorrhoid [K64.9] INVALID FOR* Postablative Hypothyroidism [E89.0] INVALID FOR* More... Low Back Pain [M54.5] INVALID FOR* Scaly Patch Rash [R21] INVALID FOR* Impaired Fasting Glucose [R73.01] INVALID FOR* Hyperthyroidism [E05.90] INVALID FOR*11/09/2009 Hypothyroidism [E03.9] INVALID FOR*11/09/2009 Psoriasis [L40.9] INVALID FOR* Essential hypertension [I10] INVALID FOR* Cerebrovascular accident (CVA) (HCC) [I63.9] INVALID FOR* Obstructive sleep apnea (adult) (pediatric) [G4*INVALID FOR* Spinal stenosis, lumbar region, without neuroge*INVALID FOR* Lumbar facet arthropathy [M47.816] INVALID FOR* Orthostatic hypotension [I95.1] INVALID FOR* Malaise and fatigue [R53.81, R53.83] INVALID FOR* Disposition: Return in about 4 months (around 07/03/2018). Follow-up and Disposition History Recorded Encounter Status:Closed by HANSEL RAMSEY on 03/05/18 OPERATIVE REPORT - Observed: 01/24/2018 Status: F Source: [facility] 9:37 AM [facility] Medical Records Department [address] [place] [address] Operative Report - Endoscopy MR#: [id number] Acct: [id number] Name: TREVOR COLEMAN Rep #: [id number] : 1950 67 From: Benny Baltazar MD PCP: Liseth Del Valle DO Status: REG [facility] [place] Patient Name: Trevor Coleman Procedure Date: 01/24/2018 8:46 AM Date of : 1950 Age: 67 Procedure: Colonoscopy Indications: Rectal bleeding Providers: Benny Baltazar MD Referring MD: Liseth Del Valle Medicines: See the Anesthesia note for documentation of the administered medications Patient Profile: Last Colonoscopy: none. The patient's first colonoscopy is today. Complications: No immediate complications. Procedure: Pre-Anesthesia Assessment: - Prior to the procedure, a History and Physical was performed, and patient medications and allergies were reviewed. The patient's tolerance of previous anesthesia was also reviewed. The risks and benefits of the procedure and the sedation options and risks were discussed with the patient. All questions were answered, and informed consent was obtained. Prior Anticoagulants: The patient has taken no previous anticoagulant or antiplatelet agents. ASA Grade Assessment: II - A patient with mild systemic disease. After reviewing the risks and benefits, the patient was deemed in satisfactory condition to undergo the procedure. After I obtained informed consent, the scope was passed under direct vision. Throughout the procedure, the patient's blood pressure, pulse, and oxygen saturations were monitored continuously. The colonoscope was introduced through the anus and advanced to the cecum, identified by appendiceal orifice and ileocecal valve. The colonoscopy was performed without difficulty. The patient tolerated the procedure well. The quality of the bowel preparation was good. The ileocecal valve and the appendiceal orifice were photographed. Scope In: 8:58:25 AM Scope Withdrawal Time 0 hours 26 minutes 2 seconds Scope Out: 9:29:49 AM Total Procedure Duration Time 0 hours 31 minutes 24 seconds Findings: The perianal exam findings include non-thrombosed external hemorrhoids, non-thrombosed internal hemorrhoids and internal hemorrhoids that prolapse with straining, but require manual replacement into the anal canal (Grade III). The digital rectal exam findings include enlarged prostate. Pertinent negatives include normal sphincter tone. A 9 mm polyp was found in the hepatic flexure. The polyp was sessile. The polyp was removed with a hot snare. Resection and retrieval were complete. To prevent bleeding post-intervention, two hemostatic clips were successfully placed. There was no bleeding at the end of the procedure. A 10 mm polyp was found in the proximal sigmoid colon. The polyp was semi-pedunculated. The polyp was removed with a hot snare. Resection and retrieval were complete. A 11 mm polyp was found in the rectum. The polyp was sessile. The polyp was removed with a hot snare. Resection and retrieval were complete. Multiple diverticula were found in the sigmoid colon and descending colon. Impression: - Non-thrombosed external hemorrhoids, non-thrombosed internal hemorrhoids and internal hemorrhoids that prolapse with straining, but require manual replacement into the anal canal (Grade III) found on perianal exam. - Enlarged prostate found on digital rectal exam. - One 9 mm polyp at the hepatic flexure, removed with a hot snare. Resected and retrieved. Clips were placed. - One 10 mm polyp in the proximal sigmoid colon, removed with a hot snare. Resected and retrieved. - One 11 mm polyp in the rectum, removed with a hot snare. Resected and retrieved. - Diverticulosis in the sigmoid colon and in the descending colon. Recommendation: - Discharge patient to home. - Resume previous diet. - Continue present medications. - Repeat colonoscopy in 1 year for surveillance based on pathology results. - Return to GI office in 1 week. Procedure Code(s): --- Professional --- 50233, Colonoscopy, flexible; with removal of tumor(s), polyp(s), or other lesion(s) by snare technique Diagnosis Code(s): --- Professional --- K64.2, Third degree hemorrhoids K64.4, Residual hemorrhoidal skin tags D12.3, Benign neoplasm of transverse colon (hepatic flexure or splenic flexure) D12.5, Benign neoplasm of sigmoid colon K62.1, Rectal polyp K62.5, Hemorrhage of anus and rectum K57.30, Diverticulosis of large intestine without perforation or abscess without bleeding N40.0, Benign prostatic hyperplasia without lower urinary tract symptoms CPT copyright 2017 [employer]. All rights reserved. The codes documented in this report are preliminary and upon dog or horse racing official review may be revised to meet current compliance requirements. Benny Baltazar MD 01/24/2018 9:36:43 AM This report has been signed electronically. Number of Addenda: 0 Note Initiated On: 01/24/2018 8:46 AM 01/24/18 0936 Date Benny Baltazar MD Cosigner Signature: Date (if indicated) CC: Liseth Del Valle DO; Benny Baltazar MD Date Dictated: 01/24/18 0846 Date Transcribed: Sole Layer: NICOLE Signed COLON BIOPSY (CHOOSE Observed: 01/24/2018 Status: F Source: [facility]) 12:00 AM [facility] Patient: TREVOR COLEMAN : 1950 (67/M) Acct Num: [id number] Phys: Benny Baltazar MD Unit Num: [id number] Loc: EN Specimen: [id number] Received: 01/24/18 - 1406 Spec Type: COLON BX TISSUES 1 TISSUES: A. COLON BIOPSY B. Rectum, NOS GROSS DESCRIPTION A - Received in fixative is one container labeled with the patient's name and designated polyp hepatic flexure. The specimen consists of multiple irregular fragments of frias soft tissue mixed with fecal material that in aggregate measure 1 x 0.5 x 0.1 cm. The specimen is totally submitted in one cassette. B - Received in fixative is one container labeled with the patient's name and designated polyp rectum. The specimen consists of multiple fragments of frias- pink polypoid pieces that in aggregate measure 2 x 0.6 x 0.3 cm. The entire specimen is submitted in one cassette. / SJ:adama 01/24/18 TC:1 CPT: 17235 x2 HEADER OPERATION: Colonoscopy (MAC) PRE-OP DIAGNOSIS: Rectal bleeding; family history of colon cancer TISSUE SUBMITTED: A - Polyp hepatic flexure, B - Polyp rectum MICROSCOPIC DESCRIPTION Slides are reviewed. MICROSCOPIC DIAGNOSIS A. Polyp at hepatic flexure, biopsy: Fragments of tubular adenoma. Fragments of fecal material. B. Polyp rectum, biopsy: Fragments of tubular adenoma. SJ:adama 01/27/18 Signed Cory Kendall MD 01/27/18 <signature on file> Performed By: #### PCOLBX #### [facility] [address] [place] [address]. [place], [address] CAROTID DUPLEX Observed: 01/17/2018 Status: F Source: [facility] 5:17 PM [facility] Cardiovascular Services [address] [place] [address] Carotid Duplex Ultrasound 01/17/18 0820 MR#: [id number] Acct: [id number] Name: TREVOR COLEMAN Rep #: [id number] : 1950 67 From: Benny Baltazar MD Attending Dr: Benny Baltazar MD Status: REG CLI Ordering Dr: Benny Baltazar MD Date: 01/17/18 Location: [facility] Sex: M C Admitted: Reason For Study: Carotid Bruit Rt. Velocities/BP Lt. Velocities/BP Prox CCA 97.9/16.4 cm/sec. Prox CCA 92.6/20.5 cm/sec. Mid CCA 76.8/16.4 cm/sec. Mid CCA 88.5/18.2 cm/sec. Dist CCA 55.4/11.4 cm/sec. Dist CCA 70.4/20.5 cm/sec. Prox ICA 50.3/16.9 cm/sec. Prox ICA 53.8/15.7 cm/sec. Mid ICA 61.3/20.8 cm/sec. Mid ICA 57.8/23.6 cm/sec. Dist ICA 76.2/27.5 cm/sec. Dist ICA 86.8/32.8 cm/sec. Rt. ICA/CCA = 0.99. Lt. ICA/CCA = 0.98. Prox ECA 100/12.3 cm/sec. Prox ECA 72.7/9.97 cm/sec. Rt. Vert. 40.5/12.2 cm/sec. Lt. Vert. 46.4/13 cm/sec. Right Extracranial There is heterogeneous, smooth atherosclerotic plaque noted in the right common carotid artery. There is heterogeneous, smooth atherosclerotic plaque noted in the right internal carotid artery. There is intimal thickening but no significant atherosclerotic plaque noted in the right external carotid artery. Antegrade flow is noted in the right vertebral artery. Left Extracranial There is heterogeneous, smooth atherosclerotic plaque noted in the left common carotid artery. There is heterogeneous, irregular atherosclerotic plaque noted in the left internal carotid artery. There is intimal thickening but no significant atherosclerotic plaque noted in the left external carotid artery. Antegrade flow is noted in the left vertebral artery. Procedure Carotid Duplex [id number]. Exam performed in department. Interpretation Summary Minimal smooth plague within the right internal carotid with <50% stenosis. Minimal irregular plague within the left internal carotid with <50% stenosis. Normal flow bilateral external carotids Patent and antegrade vertebrals bilaterally Ordering Physician: Benny Baltazar Referring Physician: Liseth Del Valle Performed By: Shamir QING, MORELIA, Harper and Student 01/17/18 1716 Date Benny Baltazar MD CC: Liseth Del Valle DO; Benny Baltazar MD Date Dictated: 01/17/18819 Date Transcribed: 01/17/181715 Sole Layer: Signed CBC W/DIFF, AUTOMATED Collected: 01/17/2018 Status: F Source: [facility] 8:53 AM [facility] TYPE CODE TESTS RESULT OUT OF RANGE REFERENCE UNITS LAB L100.1000 4.4-11.0 K/mm3 Normal WBC 5.6 LAB L100.1200 4.6-6.2 M/mm3 Normal RBC 4.71 LAB L100.1300 13.0-16.5 g/dl Normal HGB 15.2 LAB L100.1400 40-54 % Normal HCT 44.2 LAB L100.1500 80-94 fL Normal MCV 93.8 LAB L100.1600 27.0-32.0 pg High MCH 32.3 LAB L100.1700 32-36 g/gl Normal MCHC 34.4 LAB L100.1810 11.6-14.6 % Normal RDW CV 11.9 LAB L100.1820 35.1-43.9 fl Normal RDW SD 40.5 LAB L100.1900 150-450 K/mm3 Low PLT 148 LAB L100.2000 6.2-12.0 fl Normal MPV 11.1 LAB L100.2100 47-70 % Normal NEUT% 61.9 LAB L100.2200 19-41 % Normal LY% 27.4 LAB L100.2300 0-10 % Normal MONO% 7.7 LAB L100.2400 0-5 % Normal EO% 2.1 LAB L100.2500 0-1 % Normal BASO% 0.5 LAB L100.2550 0.0-0.9 % Normal IM GRAN % 0.400 Result Comment: IG% - Immature Granulocytes (promyelocytes, myelocytes and metamyelocytes) > 1% indicates that a LEFT SHIFT is Present. LAB L100.2620 2.0-7.7 X10 3/uL Normal Absolute Neut 3.5 LAB L100.2720 0.83-4.51 X10 3/ul Normal Absolute Lymph 1.53 Performed By: #### L100.0100 #### [facility] [place], [place], [id number] COMPREHENSIVE METABOLIC Collected: 01/17/2018 Status: F Source: [facility] [place] 8:53 AM [facility] TYPE CODE TESTS RESULT OUT OF RANGE REFERENCE UNITS LAB L501.0100 74-106 mg/dL Normal GLU 101 Result Comment: Fasting Glucose result from 100 to 125 mg/dL suggests IMPAIRED HOMEOSTASIS per A.D.A. criteria. Please note revised GLUCOSE reference range effective 2017. LAB L501.1000 7-18 mg/dL Normal BUN 17 LAB L501.1100 0.70-1.30 mg/dL Normal CREAT,SERUM 1.07 Result Comment: The validity of the calculated GFR AND GFRAA in patients over 70 years has not been determined. Clinical correlation is essential. LAB L501.1110 >60 mL/min Normal EST GFR 73 Result Comment: Non- GFR Calc LAB L501.1115 >60 mL/min Normal EST GFR - AA 88 Result Comment: GFR Calc LAB L501.1300 10-20 RATIO Normal BUN/CRE 15.9 LAB L501.1500 6.4-8.2 g/dL T Normal PROT 6.8 LAB L501.1800 3.2-5.0 g/dL Normal ALB 3.5 LAB L501.1950 2.2-4.2 g/dL Normal GLOB 3.3 LAB L501.2000 0.9-2.4 RATIO Normal A/G 1.1 LAB L501.2200 8.5-10.1 mg/dL CA Normal 9.0 LAB L501.4100 15-37 U/L Normal AST 20 LAB L501.4305 45-117 U/L Normal ALK P 45 LAB L501.4405 16-61 U/L Normal ALT 31 LAB L501.4600 0.20-1.00 mg/dL T Normal BILI 0.80 LAB L501.5300 136-145 mmol/L NA Normal 143 LAB L501.5600 3.5-5.1 mmol/L K Normal 4.3 LAB L501.5900 98-107 mmol/L CL Normal 106 LAB L501.6100 21.0-32.0 mmol/L Normal CO2 30.0 LAB L501.6200 5-15 Normal GAP 7 Performed By: #### L500.4050, L501.9520, L503.6150, L506.0400 #### [facility] [address] [place], [address] THYROID STIM HORMONE Collected: 01/17/2018 Status: F Source: [facility] (T[facility]) 8:53 AM [facility]POS[facility] TYPE CODE TESTS RESULT OUT OF RANGE REFERENCE UNITS LAB L501.9520 0.358-3.74 uIU/mL Normal TSH 0.51 Performed By: #### L500.4050, L501.9520, L503.6150, L506.0400 #### [facility] [address] [place], [address] IRON Collected: 01/17/2018 Status: F Source: [facility] 8:53 AM [facility] REPOS[facility]ORY TYPE CODE TESTS RESULT OUT OF RANGE REFERENCE UNITS LAB L503.6150 65-175 ug/dL Normal IRON 112 Performed By: #### L500.4050, L501.9520, L503.6150, L506.0400 #### [facility] [address] [place], [address] T4 FREE DIRECT Collected: 01/17/2018 Status: F Source: [facility] 8:53 AM [facility] REPOSITORY TYPE CODE TESTS RESULT OUT OF RANGE REFERENCE UNITS LAB L506.0400 0.76-1.46 ng/dL Normal T4 FREE 1.23 DIRECT Performed By: #### L500.4050, L501.9520, L503.6150, L506.0400 #### [facility] [address] [place], [address] SURGERY VISIT REPORT Observed: 01/09/2018 Status: F Source: [facility] 2:32 PM [facility] REPOSITORY [facility] [address] [place] [address] OFFICE VISIT Date of Service: 01/09/18 MR#: [id number] Acct: [id number] Name: TREVOR COLEMAN John Rep #: [id number] : 1950 Provider: Benny Baltazar MD Age/Sex: 67/M Location: [facility] Status: Signed Intake Vital Signs01/09/18 Height 6 ft 11/29/18 Weight: 220 lb Intake Visit Reasons: screening c-scope and hemorrhoids Chief Complaint: Evaluation for previous TIA Carton Stamper Required: No Is patient in pain?: No Allergies adhesive tape Allergy (Mild, Verified 01/09/18 08:55) Unknown methimazole [From Tapazole] Allergy (Mild, Verified 01/09/18 08:55) Unknown Sulfa (Sulfonamide Antibiotics) Allergy (Verified 11/27/17 09:13) PT CAN'T REMEMBER Medications Triamcinolone 0.1% Ointment [Kenalog] 1 applic TOPICAL DAILY 07/03/16 [History Confirmed 12/12/17] Amlodipine [Norvasc] 5 mg PO DAILY #90 tab 07/05/16 [Rx Confirmed 01/09/18] Aspirin [Aspirin, Baby] 81 mg PO DAILY@0800 #90 tab.chew 07/05/16 [Rx Confirmed 01/09/18] Atorvastatin Calcium [Lipitor] 40 mg PO DAILY #90 tab 07/05/16 [Rx Confirmed 01/09/18] Hydrocortisone 453.6 gm TOPICAL DAILY PRN PRN 10/27/17 [History Confirmed 12/12/17] Clopidogrel Bisulfate [Plavix] 75 mg PO DAILY #30 tab 10/28/17 [Rx Confirmed 01/09/18] cholecalciferol (vitamin D3) 2,000 unit capsule 2,000 unit PO DAILY 11/27/17 [History Confirmed 01/09/18] levothyroxine 175 mcg tablet 175 mcg PO DAILY 11/27/17 [History Confirmed 01/09/18] magnesium oxide 400 mg capsule 400 mg PO DAILY cap 11/27/17 [History Confirmed 01/09/18] multivitamin tablet 1 tab PO DAILY 11/27/17 [History Confirmed 01/09/18] amlodipine 2.5 mg tablet 2.5 mg PO DAILY 01/09/18 [History Confirmed 01/09/18] [facility] Medical History Hx of blood clots (Acute) Hemorrhoids (Acute) Arthritis (Acute) Thyroid disease (Acute) Fatigue (Acute) Hypothyroidism (Chronic) Obstructive sleep apnea (Chronic) Obesity (Chronic) Right bundle branch block (Chronic) Essential (primary) hypertension (Chronic) HLD (hyperlipidemia) (Chronic) CVA (cerebral vascular accident) (Chronic 06/2016) TIA (transient ischemic attack) (Chronic 10/2017) Surgical History History of tonsillectomy (Resolved) History of carpal tunnel release (Resolved) Hx of LASIK (Resolved) H/O knee surgery (Resolved) Family History Mother CVA (cerebral vascular accident) Cancer Colon cancer Thyroid disorder Father Heart disease Hypertension Cancer Diabetes Brother Myocardial infarction from [place] Social History Smoking Status: Never smoker second hand exposure: No alcohol intake: never substance use type: does not use caffeine: Yes frequency: does not exercise seatbelt use: always HPI HPI HPI: TREVOR COLEMAN, is a 67 M who presents to the office today for surgical consultation regarding episode of rectal bleeding. It lasted for approximately 1-1/2 weeks. There was no particular pain. It is of note that the patient has a family history of colon cancer in his mother. He is age 67. He has never previously had a colonoscopy. He is being referred by Dr Liseth Del Valle. The patient is himself is convinced that he has hemorrhoid problems. To further complicate measures June 2016 he claims that twice in a row he had TIA with right upper and lower extremity weakness and dysfunction. July 03, 2016 at the [facility] he had a CTA of the neck. Left carotid bulb at that time is felt to be normal. There is mild atherosclerotic plaque at the origin of the left internal carotid with less than 50% stenosis. He states he was not treated with blood thinners at that time. More recently October 27, 2017 because of expressive a aphasia he returned to the emergency room. A CTA was again obtained this time suggesting normal origin of the left internal carotid however mild after sclerotic plaque formation of the left carotid bulb without significant narrowing. The patient has not had a carotid duplex exam performed on either occasion. The patient has recently had a loop recorder placed by Dr. Henry Redmond. The patient states that the etiology to his stroke has not been identified. He is currently on aspirin and clopidogrel therapy in addition to his other medications. He denies any abdominal pain. He has not had any unexpected weight loss. ROS General General: Yes fatigue; no weight change, appetite, colon cancer, breast cancer or weakness HEENT HEENT: Yes eye surgery; no difficulty swallowing, eye injury, swollen glands or hoarseness Endo Endocrine: Yes thyroid disease; no diabetes mellitus, thyroid cancer, Hair loss, heat intolerance or cold intolerance Skin Skin: Yes rash; no changing moles Musc Musculoskeletal: Yes back problems and arthritis; no rheumatoid arthritis, gout or joint pain Cardio Cardiovascular: Yes high blood pressure; no murmur, pacemaker, heart disease, atrial fibrillation, heart attack, heart stent, palpitations, shortness of breat with exertion or chest pain Psych Psychiatric: No depression, anxiety or hearing voices Resp Respiratory: No shortness of breath, No sleep apnea, No cough, No COPD, No asthma, No emphysema, No wheezing Gastro Gastrointestinal: Yes hemorrhoids, No abdominal pain, No nausea or vomiting, No diarrhea, No constipation, No blood in stool, No acid reflux, No ulcers, No gallbladder problem, No black,tarry stools Connor Hematologic: Yes blood thinners, Yes bleeding, Yes blood clots, No blood disorders, No anemia Neuro Neurologic: No weakness, Yes tingling, Yes numbness Exam Const General: cooperative, healthy appearing, comfortable, no acute distress Nutritional Appearance: overweight Orientation: alert, awake, oriented [facility]3 [facility]: normal to inspection Eyes General: appearance normal, both eyes and all related structures Neck Neck: normal visual inspection Carotids: normal carotid upstroke, no bruits Chest Chest palpation AND inspection: normal inspection of the chest Resp Effort AND Inspection: normal respiratory effort Auscultation: clear to auscultation bilaterally Cardio Rate: regular rate Rhythm: regular rhythm Heart Sounds: no murmurs GI Palpation: soft, no hepatosplenomegaly Auscultation: normal bowel sounds Musc Cervical Spine: normal cervical lordosis Skin General: no rashes or lesions noted Extrem General: no clubbing, cyanosis or edema Psych Affect: normal affect Assessment AND Plan Problems 1. Hemorrhoids, unspecified hemorrhoid type K64.9 2. Cerebrovascular accident (CVA) due to embolism of left carotid artery I63.132 3. Transient cerebral ischemia, unspecified type G45.9 4. Rectal bleeding K62.5 5. Family history of colon cancer in mother Z80.0 Plan 67-year-old gentleman is never had a previous colonoscopy but has a family history of colon cancer in his mother. He is having some rectal bleeding to which he attributes hemorrhoids. 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 Service: (none) Author Type: Physician Type: Progress Notes Filed: 12/31/2017 3:42 PM Note Text: Message left today regarding initiation of Cosentyx. As noted before, I am not familiar with the medication (besides television commercials) and cannot find any specific answer, when researching the question, of whether the medication would increase risk of stroke. I have also discussed with Dr. Sears and Thien, who are not familiar with the medication. If there is concern by those Rx'ing, would recommend that the company be contacted to determine if any trials have shown increased risk of stroke. Hansel Ramsey Jr, MD CNOV Observed: 12/02/2017 Status: COMPLETED Source: [facility] 3:40 PM [facility] OTHER [facility] REPOSITORY Office Visit ([facility]) TREVOR COLEMAN ([id number]) 1950 M Date Time Provider Department 12/02/17 3:40 PM BRAULIO FLORES, HANSEL MENDES During your visit today, we recorded the following information about you: Pulse Respiration Blood pressure Weight 73/minute 17/minute 124/78 99.8 kg Height 1.829 m Hansel Ramsey MD 12/02/2017 4:25 PM Signed ESTABLISHED PATIENT VISIT HISTORY OF PRESENT ILLNESS: Trevor Coleman is a 67 year old right handed male, with past medical history significant for (per my last office visit note): 1. Cerebrovascular accident (CVA), unspecified mechanism (HCC) - ICD9: 434.91, ICD10: I63.9 (primary diagnosis) Patient with new L parietal infarct of unknown etiology but likely due to HTN. Currently with non focal neuro exam and NIHSS of 0. Reviewed with pt dx, etiology, physiology, prognosis and treatment. Recommendations as follows: -Continue ASA and Plavix. -Continue Statin therapy. -BP goal <140/90. -Glucose goal <140. -Encouraged exercise. 2. Essential hypertension - ICD9: 401.9, ICD10: I10 Encouraged follow up with PCP. Goal as above. 3. Obstructive sleep apnea (adult) (pediatric) - ICD9: 327.23, ICD10: G47.33 Pt cannot get PAP secondary to AHI <5 by [facility]. Continue positional therapy. He is not endorsing symptoms. Told them to watch for snroing, witnessed apneas, unrefreshing sleep and EDS. 4. Spinal stenosis, lumbar region, without neurogenic claudication - ICD9: 724.02, ICD10: M48.061 Follow up with PT as recommended by spine center. Patient had an episode Oct 5, in which he felt lightheaded, bilateral arms felt heavy. [place] and in ambulance started to shake (no loc) diffusely. States they saw something on heart monitor but they never indicated there was something wrong in the ER. They performed CT brain ER, labs and EKG per patient and all unremarkable. States ever since he had the stroke, feels fatigue and lightheaded. He has not gone golfing since above - unusual for patient to not go out. Also sleeping a lot. Did have adjustment of thyroid meds last week due to low TSH and elevated T4. Good appetite. Does feel depressed: I wouldn't say its extreme... worried about stuff. 30 day event monitor was unremarkable, and thus was placed on Loop recorded by Dr. Redmond. Pt reports feeling more lightheaded in the AM, but not extreme - I just feel off. States drinks plenty of water. Good appetite. I feel fatigued. Lower back is doing good. No pain. REVIEW OF SYSTEMS GENERAL:No weight loss, malaise or fevers. HEENT:Negative for frequent or significant headaches, No changes in hearing or vision, no nose bleeds or other nasal problems NECK:Negative for lumps, goiter, pain and significant neck swelling RESPIRATORY: Negative for cough, wheezing or shortness of breath. CARDIOVASCULAR: Negative for chest pain, leg swelling or palpitations. GASTROINTESTINAL: Negative for abdominal discomfort, blood in stools or black stools or change in bowel habits GENITOURINARY: No history of dysuria, frequency or incontinence MUSCULOSKELETAL: Negative for joint pain or swelling, back pain or muscle pain. NEUROLOGIC:Negative for focal numbness or weakness, headaches and dizziness or syncope, vision changes, speech/languag changes - EXCEPT that as per HPI above. SKIN:Negative for lesions, rash, and itching. PSYCHIATRIC: Negative for sleep disturbance, mood disorder and recent psychosocial stressors. HEMATOLOGIC/LYMPHATIC/IMMUNOLOGIC:Negative for prolonged bleeding, bruising easily or swollen nodes. ENDOCRINE: Negative for cold or heat intolerance, polyuria, polydipsia and goiter. The remainder of the ROS was reviewed and is negative. LAB/IMAGING: Those performed since patient's last visit have been reviewed. Glucose (mg/dL) Date Value 09/19/2016 109 (H) BUN (mg/dL) Date Value 09/19/2016 20 Creatinine (mg/dL) Date Value 09/19/2016 1.07 Sodium (mmol/L) Date Value 09/19/2016 140 Potassium (mmol/L) Date Value 09/19/2016 4.1 Chloride (mmol/L) Date Value 09/19/2016 102 CO2 (mmol/L) Date Value 09/19/2016 28 Protein, Total (g/dL) Date Value 09/19/2016 6.3 Albumin (g/dL) Date Value 09/19/2016 3.9 Calcium (mg/dL) Date Value 09/19/2016 9.4 Alkaline Phosphatase (U/L) Date Value 09/19/2016 37 Bilirubin, Total (mg/dL) Date Value 09/19/2016 1.2 AST (U/L) Date Value 09/19/2016 21 ALT (U/L) Date Value 09/19/2016 33 Rheumatoid Factor (IU/mL) Date Value 06/09/2009 14 Hep C Antibody IA (no units) Date Value 08/11/2015 Negative MEDICATIONS: clopidogrel (PLAVIX) 75 mg tablet Take 75 mg by mouth once daily. methylPREDNISolone (MEDROL, NAM,) 4 mg Dose-Pack Take as directed on package. amLODIPine (NORVASC) 5 mg tablet Take 1 tablet by mouth once daily. atorvastatin (LIPITOR) 40 mg tablet Take 1 tablet by mouth once daily. aspirin, enteric coated (ASPIRIN, ENTERIC COATED) 81 mg EC tablet Take 81 mg by mouth once daily. levothyroxine (LEVOXYL) 175 mcg tablet Take 1 tablet by mouth once daily. Take on empty stomach. For thyroid. triamcinolone acetonide (KENALOG) 0.1 % cream Apply to affected area twice daily. hydrocortisone 2.5 % ointment Apply to affected area twice daily. fexofenadine-pseudoephedrine (RAHEL-D) 60-120 mg per tablet Take 1 tablet by mouth every 12 hours as needed (sinus congestion/cold symptoms). Cholecalciferol, Vitamin D3, (VITAMIN D-3) 2,000 unit tab Take 1 tablet by mouth once daily. HISTORIES PAST MEDICAL HISTORY Diagnosis Date - Hypertension - Stroke (HCC) FAMILY HISTORY Problem Relation Age of Onset - None Mother - Heart Father BYPASS SOCIAL HISTORY Social History Substance Use Topics - Smoking status: Never Smoker - Smokeless tobacco: Never Used - Alcohol use Yes Comment: rare PHYSICAL EXAMINATION Blood pressure 124/78, pulse 73, resp. rate 17, height 6' (1.829 m), weight 220 lb (99.8 kg), SpO2 98 %. Sitting 135/89 69 Standing 107/72 79; repeat 118/84 84. GENERAL EXAM: General appearance: NAD, pleasant. HEENT: NC/AT, nasal congestion absent, no oral lesions, membranes moist. NECK: No masses, supple. Lungs: CTA bilaterally. No wheezes present. CV: RRR nl S1, S2, no murmurs. No carotid bruits. Abd: Soft, nontender, nondistended. Bowel sounds present. Extr: No cyanosis, clubbing or edema. No evidence of fasciculations. Extremity pulses palpable and normal. Skin: Cool to touch. No rash. NEUROLOGICAL EXAM: General: Awake, alert, oriented x3 (person,place,time), speech fluent, no dysarthria; comprehension, naming, repetition intact. Fund of knowledge grossly normal by MOCA. CN: PERRL, fundi appear normal including no evidence of papilledema, EOMI and without nystagmus, VFF to confrontation, facial sensation and strength are normal and symmetric, hearing is intact to finger rub bilaterally, palate and tongue movements are intact and symmetric. SCM and trapezius strength normal. Motor: Normal tone, bulk and strength (5/5) bilaterally (throughout extremities x4). Reflexes: 2/4 and symmetric, plantar stimulation is flexor. Coordination: FNF, MATY, HTS intact. No tremors. Sensation: LT, PP, vibration, temperature intact throughout. No evidence of neglect. Gait: Narrow based and stable with normal stride and arm swing. Normal tandem. Romberg normal. Assessment and Plan: ASSESSMENT/PLAN: 1. Cerebrovascular accident (CVA), unspecified mechanism (HCC) - ICD9: 434.91, ICD10: I63.9 (primary diagnosis) Overall non-focal neuro exam. No changes from prior recommendations. Advised of risks of stopping Plavix while prep for Loop recorder. BP goal <140/90. Glucose goal <140. Continue dual antiplt therapy for now, but may consider change to Plavix only in the future. 2. Obstructive sleep apnea (adult) (pediatric) - ICD9: 327.23, ICD10: G47.33 Again, pt AHI <5 by [facility] and thus cannot get PAP therapy. Encouraged pt to sleep in off-supine position. 3. Orthostatic hypotension - ICD9: 458.0, ICD10: I95.1 Uncertain if cause of symptoms of just not feeling right. Orthostatic in office as above. Encouraged water intake and will have wear compression stockings. Also will reduce Norvasc to 7.5mg daily to see if allows for improvement. 4. Spinal stenosis, lumbar region, without neurogenic claudication - ICD9: 724.02, ICD10: M48.061 Encouraged follow up with psine 5. Fatigue: Unclear etiology. Negative cardiac workup per reports. ? Secondary to orthostatic hypotension. Also question if secondary to thyroid disease. Synthroid dose just changed last week and thus need to monitor to see if improves. Hansel Ramsey MD I spent 40 minutes in the visit, with more than 50% of the total [id number] time of the visit in counseling / coordination of care. Hansel Ramsey MD 12/02/2017 4:16 PM Addendum Decrease Norvasc to 7.5 mg daily. Try to wear compression stockings during the day. Referring Provider: HANSEL RAMSEY JR [[id number]] Allergies As of Date: 12/02/2017 Noted Allergy Reaction ADHESIVE 07/10/2016 2 - Rash SULFA (SULFONAMIDE ANTIBIOTICS) 02/08/2005 TAPAZOLE (METHIMAZOLE) 01/25/2010 2 - Rash Date Reviewed: 12/02/2017 Reviewed by: Hansel Ramsey Jr. - Fully Assessed Reason for Visit: Follow Up [171] Primary Visit Diagnosis:Cerebrovascular accident (CVA), unspecified mechanism (HCC) [I63.9] Other Visit Diagnoses:Obstructive sleep apnea (adult) (pediatric) [G47.33] Orthostatic hypotension [I95.1] Spinal stenosis, lumbar region, without neurogenic claudication [M48.061] Malaise and fatigue [R53.81, R53.83] Order(s):amLODIPine (NORVASC) 5 mg tabletTake 1 tablet by mouth once daily.Disp: 30 tabletRfl: 2 amLODIPine (NORVASC) 2.5 mg tabletTake 1 tablet by mouth once daily.Disp: 30 tabletRfl: 2 Prescriptions as of 12/02/2017 Sig: CLOPIDOGREL 75 MG TABLET Take 75 mg by mouth once lokesh* ATORVASTATIN 40 MG TABLET Take 1 tablet by mouth once d* ASPIRIN 81 MG TABLET,DELAYED * Take 81 mg by mouth once lokesh* LEVOTHYROXINE 175 MCG TABLET Take 1 tablet by mouth once d* Patient taking differently: Take 188 mcg by mouth once da* TRIAMCINOLONE ACETONIDE 0.1 %* Apply to affected area twice* HYDROCORTISONE 2.5 % TOPICAL * Apply to affected area twice* CHOLECALCIFEROL (VITAMIN D3) * Take 1 tablet by mouth once d* AMLODIPINE 5 MG TABLET Take 1 tablet by mouth once d* AMLODIPINE 2.5 MG TABLET Take 1 tablet by mouth once d* METHYLPREDNISOLONE 4 MG TABLE* Take as directed on package. Patient not taking: Reported on 11/12/2017 FEXOFENADINE 60 MG-PSEUDOEPHE* Take 1 tablet by mouth every * Patient not taking: Reported on 11/12/2017 Problem List As Of Date 12/02/2017 Noted Resolved Hemorrhoid [K64.9] INVALID FOR* Postablative Hypothyroidism [E89.0] INVALID FOR* More... Low Back Pain [M54.5] INVALID FOR* Scaly Patch Rash [R21] INVALID FOR* Impaired Fasting Glucose [R73.01] INVALID FOR* Hyperthyroidism [E05.90] INVALID FOR*11/09/2009 Hypothyroidism [E03.9] INVALID FOR*11/09/2009 Psoriasis [L40.9] INVALID FOR* Essential hypertension [I10] INVALID FOR* Cerebrovascular accident (CVA) (HCC) [I63.9] INVALID FOR* Obstructive sleep apnea (adult) (pediatric) [G4*INVALID FOR* Spinal stenosis, lumbar region, without neuroge*INVALID FOR* Lumbar facet arthropathy [M47.816] INVALID FOR* Orthostatic hypotension [I95.1] INVALID FOR* Malaise and fatigue [R53.81, R53.83] INVALID FOR* Other instructions from your clinician: Decrease Norvasc to 7.5 mg daily. Try to wear compression stockings during the day. Prescriptions ordered this encounter Disp Refills Start End AMLODIPINE 5 MG TABLET 30 t* 2 12/02/2017 Route: ORAL Sig: Take 1 tablet by mouth once daily. AMLODIPINE 2.5 MG TABLET 30 t* 2 12/02/2017 03/02/2018 Route: ORAL Sig: Take 1 tablet by mouth once daily. Medications Discontinued During This Encounter amLODIPine (NORVASC) 5 mg tablet 90 t* 3 09/24/2016 12/02/2017 Route: ORAL Sig: Take 1 tablet by mouth once daily. Patient taking differently: Take 10 mg by mouth once daily. Disc: Reason for discontinue is not on file. Disposition: Return in about 3 months (around 03/04/2018). Follow-up and Disposition History Recorded Encounter Status:Closed by HANSEL RAMSEY on 12/02/17 PROGRESS Observed: 12/02/2017 Status: COMPLETED Source: [place] 2:58 PM CLINIC OTHER CAMPUS REPOSITORY HNO ID: [id number] Author: Hansel Ramsey Jr. Service: (none) Author Type: Physician Type: Progress Notes Filed: 12/02/2017 4:25 PM Note Text: ESTABLISHED PATIENT VISIT HISTORY OF PRESENT ILLNESS: Trevor Coleman is a 67 year old right handed male, with past medical history significant for (per my last office visit note): 1. Cerebrovascular accident (CVA), unspecified mechanism (HCC) - ICD9: 434.91, ICD10: I63.9 (primary diagnosis) Patient with new L parietal infarct of unknown etiology but likely due to HTN. Currently with non focal neuro exam and NIHSS of 0. Reviewed with pt dx, etiology, physiology, prognosis and treatment. Recommendations as follows: -Continue ASA and Plavix. -Continue Statin therapy. -BP goal <140/90. -Glucose goal <140. -Encouraged exercise. 2. Essential hypertension - ICD9: 401.9, ICD10: I10 Encouraged follow up with PCP. Goal as above. 3. Obstructive sleep apnea (adult) (pediatric) - ICD9: 327.23, ICD10: G47.33 Pt cannot get PAP secondary to AHI <5 by [facility]. Continue positional therapy. He is not endorsing symptoms. Told them to watch for snroing, witnessed apneas, unrefreshing sleep and EDS. 4. Spinal stenosis, lumbar region, without neurogenic claudication - ICD9: 724.02, ICD10: M48.061 Follow up with PT as recommended by spine center. Patient had an episode Oct 5, in which he felt lightheaded, bilateral arms felt heavy. [place] and in ambulance started to shake (no loc) diffusely. States they saw something on heart monitor but they never indicated there was something wrong in the ER. They performed CT brain ER, labs and EKG per patient and all unremarkable. States ever since he had the stroke, feels fatigue and lightheaded. He has not gone golfing since above - unusual for patient to not go out. Also sleeping a lot. Did have adjustment of thyroid meds last week due to low TSH and elevated T4. Good appetite. Does feel depressed: I wouldn't say its extreme... worried about stuff. 30 day event monitor was unremarkable, and thus was placed on Loop recorded by Dr. Redmond. Pt reports feeling more lightheaded in the AM, but not extreme - I just feel off. States drinks plenty of water. Good appetite. I feel fatigued. Lower back is doing good. No pain. REVIEW OF SYSTEMS GENERAL:No weight loss, malaise or fevers. HEENT:Negative for frequent or significant headaches, No changes in hearing or vision, no nose bleeds or other nasal problems NECK:Negative for lumps, goiter, pain and significant neck swelling RESPIRATORY: Negative for cough, wheezing or shortness of breath. CARDIOVASCULAR: Negative for chest pain, leg swelling or palpitations. GASTROINTESTINAL: Negative for abdominal discomfort, blood in stools or black stools or change in bowel habits GENITOURINARY: No history of dysuria, frequency or incontinence MUSCULOSKELETAL: Negative for joint pain or swelling, back pain or muscle pain. NEUROLOGIC:Negative for focal numbness or weakness, headaches and dizziness or syncope, vision changes, speech/languag changes - EXCEPT that as per HPI above. SKIN:Negative for lesions, rash, and itching. PSYCHIATRIC: Negative for sleep disturbance, mood disorder and recent psychosocial stressors. HEMATOLOGIC/LYMPHATIC/IMMUNOLOGIC:Negative for prolonged bleeding, bruising easily or swollen nodes. ENDOCRINE: Negative for cold or heat intolerance, polyuria, polydipsia and goiter. The remainder of the ROS was reviewed and is negative. LAB/IMAGING: Those performed since patient's last visit have been reviewed. Glucose (mg/dL) Date Value 09/19/2016 109 (H) BUN (mg/dL) Date Value 09/19/2016 20 Creatinine (mg/dL) Date Value 09/19/2016 1.07 Sodium (mmol/L) Date Value 09/19/2016 140 Potassium (mmol/L) Date Value 09/19/2016 4.1 Chloride (mmol/L) Date Value 09/19/2016 102 CO2 (mmol/L) Date Value 09/19/2016 28 Protein, Total (g/dL) Date Value 09/19/2016 6.3 Albumin (g/dL) Date Value 09/19/2016 3.9 Calcium (mg/dL) Date Value 09/19/2016 9.4 Alkaline Phosphatase (U/L) Date Value 09/19/2016 37 Bilirubin, Total (mg/dL) Date Value 09/19/2016 1.2 AST (U/L) Date Value 09/19/2016 21 ALT (U/L) Date Value 09/19/2016 33 Rheumatoid Factor (IU/mL) Date Value 06/09/2009 14 Hep C Antibody IA (no units) Date Value 08/11/2015 Negative MEDICATIONS: clopidogrel (PLAVIX) 75 mg tablet Take 75 mg by mouth once daily. methylPREDNISolone (MEDROL, NAM,) 4 mg Dose-Pack Take as directed on package. amLODIPine (NORVASC) 5 mg tablet Take 1 tablet by mouth once daily. atorvastatin (LIPITOR) 40 mg tablet Take 1 tablet by mouth once daily. aspirin, enteric coated (ASPIRIN, ENTERIC COATED) 81 mg EC tablet Take 81 mg by mouth once daily. levothyroxine (LEVOXYL) 175 mcg tablet Take 1 tablet by mouth once daily. Take on empty stomach. For thyroid. triamcinolone acetonide (KENALOG) 0.1 % cream Apply to affected area twice daily. hydrocortisone 2.5 % ointment Apply to affected area twice daily. fexofenadine-pseudoephedrine (RAHEL-D) 60-120 mg per tablet Take 1 tablet by mouth every 12 hours as needed (sinus congestion/cold symptoms). Cholecalciferol, Vitamin D3, (VITAMIN D-3) 2,000 unit tab Take 1 tablet by mouth once daily. HISTORIES PAST MEDICAL HISTORY Diagnosis Date - Hypertension - Stroke (HCC) FAMILY HISTORY Problem Relation Age of Onset - None Mother - Heart Father BYPASS SOCIAL HISTORY Social History Substance Use Topics - Smoking status: Never Smoker - Smokeless tobacco: Never Used - Alcohol use Yes Comment: rare PHYSICAL EXAMINATION Blood pressure 124/78, pulse 73, resp. rate 17, height 6' (1.829 m), weight 220 lb (99.8 kg), SpO2 98 %. Sitting 135/89 69 Standing 107/72 79; repeat 118/84 84. GENERAL EXAM: General appearance: NAD, pleasant. HEENT: NC/AT, nasal congestion absent, no oral lesions, membranes moist. NECK: No masses, supple. Lungs: CTA bilaterally. No wheezes present. CV: RRR nl S1, S2, no murmurs. No carotid bruits. Abd: Soft, nontender, nondistended. Bowel sounds present. Extr: No cyanosis, clubbing or edema. No evidence of fasciculations. Extremity pulses palpable and normal. Skin: Cool to touch. No rash. NEUROLOGICAL EXAM: General: Awake, alert, oriented x3 (person,place,time), speech fluent, no dysarthria; comprehension, naming, repetition intact. Fund of knowledge grossly normal by MOCA. CN: PERRL, fundi appear normal including no evidence of papilledema, EOMI and without nystagmus, VFF to confrontation, facial sensation and strength are normal and symmetric, hearing is intact to finger rub bilaterally, palate and tongue movements are intact and symmetric. SCM and trapezius strength normal. Motor: Normal tone, bulk and strength (5/5) bilaterally (throughout extremities x4). Reflexes: 2/4 and symmetric, plantar stimulation is flexor. Coordination: FNF, MATY, HTS intact. No tremors. Sensation: LT, PP, vibration, temperature intact throughout. No evidence of neglect. Gait: Narrow based and stable with normal stride and arm swing. Normal tandem. Romberg normal. Assessment and Plan: ASSESSMENT/PLAN: 1. Cerebrovascular accident (CVA), unspecified mechanism (HCC) - ICD9: 434.91, ICD10: I63.9 (primary diagnosis) Overall non-focal neuro exam. No changes from prior recommendations. Advised of risks of stopping Plavix while prep for Loop recorder. BP goal <140/90. Glucose goal <140. Continue dual antiplt therapy for now, but may consider change to Plavix only in the future. 2. Obstructive sleep apnea (adult) (pediatric) - ICD9: 327.23, ICD10: G47.33 Again, pt AHI <5 by [facility] and thus cannot get PAP therapy. Encouraged pt to sleep in off-supine position. 3. Orthostatic hypotension - ICD9: 458.0, ICD10: I95.1 Uncertain if cause of symptoms of just not feeling right. Orthostatic in office as above. Encouraged water intake and will have wear compression stockings. Also will reduce Norvasc to 7.5mg daily to see if allows for improvement. 4. Spinal stenosis, lumbar region, without neurogenic claudication - ICD9: 724.02, ICD10: M48.061 Encouraged follow up with psine 5. Fatigue: Unclear etiology. Negative cardiac workup per reports. ? Secondary to orthostatic hypotension. Also question if secondary to thyroid disease. Synthroid dose just changed last week and thus need to monitor to see if improves. Hansel Ramsey MD I spent 40 minutes in the visit, with more than 50% of the total [id number] time of the visit in counseling / coordination of care. CBC-COMPLETE BLOOD CNT Collected: 11/27/2017 Status: F Source: [facility] NO DIFF 10:58 AM [facility] REPOSITORY TYPE CODE TESTS RESULT OUT OF RANGE REFERENCE UNITS LAB L100.1000 4.4-11.0 K/mm3 Normal WBC 6.7 LAB L100.1200 4.6-6.2 M/mm3 Normal RBC 4.78 LAB L100.1300 13.0-16.5 g/dl Normal HGB 15.3 LAB L100.1400 40-54 % Normal HCT 45.1 LAB L100.1500 80-94 fL High MCV 94.4 LAB L100.1600 27.0-32.0 pg Normal MCH 32.0 LAB L100.1700 32-36 g/gl Normal MCHC 33.9 LAB L100.1810 11.6-14.6 % Normal RDW CV 12.2 LAB L100.1820 35.1-43.9 fl Normal RDW SD 41.5 LAB L100.1900 150-450 K/mm3 Normal PLT 165 LAB L100.2000 6.2-12.0 fl Normal MPV 11.1 Performed By: #### L100.0500 #### [facility] [address] [place], [address] BASIC METABOLIC Collected: 11/27/2017 Status: F Source: [place] PROFILE (BMP) 10:58 AM [facility] REPOSITORY TYPE CODE TESTS RESULT OUT OF RANGE REFERENCE UNITS LAB L501.0100 74-106 mg/dL Normal GLU 101 Result Comment: Fasting Glucose result from 100 to 125 mg/dL suggests IMPAIRED HOMEOSTASIS per A.D.A. criteria. Please note revised GLUCOSE reference range effective 2017. LAB L501.1000 7-18 mg/dL Normal BUN 16 LAB L501.1100 0.70-1.30 mg/dL Normal CREAT,SERUM 1.16 Result Comment: The validity of the calculated GFR AND GFRAA in patients over 70 years has not been determined. Clinical correlation is essential. LAB L501.1110 >60 mL/min Normal EST GFR 67 Result Comment: Non- GFR Calc LAB L501.1115 >60 mL/min Normal EST GFR - AA 81 Result Comment: GFR Calc LAB L501.1300 10-20 RATIO Normal BUN/CRE 13.8 LAB L501.2200 8.5-10.1 mg/dL CA Normal 9.2 LAB L501.5300 136-145 mmol/L NA Normal 140 LAB L501.5600 3.5-5.1 mmol/L K Normal 4.2 LAB L501.5900 98-107 mmol/L CL Normal 105 LAB L501.6100 21.0-32.0 mmol/L Normal CO2 30.0 LAB L501.6200 5-15 Normal GAP 5 Performed By: #### L500.2500 #### [facility] [address] [place], [address] CARDIOLOGY VISIT Observed: 11/27/2017 Status: F Source: [place] REPORT 9:56 AM [facility] REPOSITORY [facility] [address] [place], [place] [address] OFFICE VISIT Date of Service: 11/27/17 MR#: [id number] Acct: [id number] Name: TREVOR COLEMAN Rep #: [id number] : 1950 Provider: Henry Redmond MD Age/Sex: 67/M [place] [facility] [place] Signed HPI HPI Chief Complaint: Evaluation for previous TIA Details: TREVOR COLEMAN, is a 67 M who presents to the office today for initial visit. He had presented to the emergency room into the hospital for evaluation of a TIA and ultimately underwent MRI evaluation which demonstrated evidence of an acute lacunar as well as cerebellar infarcts. He subsequently was discharged and then presented once again with similar sensations. He was evaluated had an echocardiogram done which demonstrated preserved ejection fraction of 60% with stage I diastolic dysfunction. His electrocardiogram demonstrated normal sinus rhythm with a right bundle branch block. No acute changes were noted. He was discharged with a 30-day event monitor which did not demonstrate any significant abnormality. It appears that his initial CVA was in June 2016 and then this episode was in October 2017. He was discharged on aspirin Plavix and continued his Norvasc for hypertension as well as his Lipitor for hyperlipidemia. He has done well since he has had a few bradycardia arrhythmias but no significant pauses. He is here for us to evaluate him from the cardiovascular standpoint. He denies any neck, jaw discomfort suggest angina no dizziness or diaphoresis no near syncope or syncope his blood pressure has been under good control. His physical exam today demonstrates clear lung triana regular rate and rhythm and no pedal edema. Intake Vital Signs11/27/17 Height 6 ft 11/27/17 Weight: 219 lb 11/27/17 Body Mass Index (BMI) 29.7 11/27/17 Blood Pressure 132/78 H 11/27/17 Respiratory Rate 16 11/27/17 Pulse Rate 68 Intake Visit Reasons: Self ref'd post TIA, has 30 day since 10-28 Allergies Sulfa (Sulfonamide Antibiotics) Allergy (Verified 11/27/17 09:13) PT CAN'T REMEMBER Medications Triamcinolone 0.1% Ointment [Kenalog] 1 applic TOPICAL DAILY 07/03/16 [History Confirmed 11/27/17] Amlodipine [Norvasc] 5 mg PO DAILY #90 tab 07/05/16 [Rx Confirmed 11/27/17] Aspirin [Aspirin, Baby] 81 mg PO DAILY@0800 #90 tab.chew 07/05/16 [Rx Confirmed 11/27/17] Atorvastatin Calcium [Lipitor] 40 mg PO DAILY #90 tab 07/05/16 [Rx Confirmed 11/27/17] Hydrocortisone 453.6 gm TOPICAL DAILY PRN PRN 10/27/17 [History Confirmed 11/27/17] Clopidogrel Bisulfate [Plavix] 75 mg PO DAILY #30 tab 10/28/17 [Rx Confirmed 11/27/17] cholecalciferol (vitamin D3) 2,000 unit capsule 2,000 unit PO DAILY 11/27/17 [History Confirmed 11/27/17] levothyroxine 175 mcg tablet 175 mcg PO DAILY 11/27/17 [History Confirmed 11/27/17] magnesium oxide 400 mg capsule 400 mg PO DAILY cap 11/27/17 [History Confirmed 11/27/17] multivitamin tablet 1 tab PO DAILY 11/27/17 [History Confirmed 11/27/17] [facility] Medical History Right bundle branch block (Chronic) Essential (primary) hypertension (Chronic) HLD (hyperlipidemia) (Chronic) CVA (cerebral vascular accident) (Chronic 06/2016) TIA (transient ischemic attack) (Chronic 10/2017) Hypothyroidism (Chronic) Obesity (Chronic) Obstructive sleep apnea (Chronic) Surgical History H/O knee surgery (Resolved) History of carpal tunnel release (Resolved) History of tonsillectomy (Resolved) Hx of LASIK (Resolved) Family History Mother CVA (cerebral vascular accident) Cancer Father Heart disease Brother Myocardial infarction from SD Social History Smoking Status: Never smoker ROS Const Const: Positive for fatigue and weakness (C/O BUE and BLE weakness and heaviness); negative for difficulty sleeping, frequent falls, excessive sweating or headache(s) Eyes Eyes: Negative for loss of peripheral vision, transient loss of vision, blurry vision, tunnel vision or double vision ENT ENT: Negative for headache(s), dizziness, Nosebleed/epistaxis or balance problems Cardio Chest Pain: No Palpitations: No Edema: None Muscle aches with walking: None Resp Respiratory: Negative for SOB with activity, SOB at rest, SOB orthopnea\SOB lying down, paroxysmal nocturnal dyspnea or Cough GI GI: Negative nausea, heartburn, black,tarry stools or vomiting : Negative for hematuria Musc Musc: Positive for muscle weakness (C/O BUE and BLE weakness and heaviness); negative for balance problems, muscle aches/ myalgia or joint pain Skin Skin: Negative non-healing lesions, unusual bruising or rash Neuro Neuro: Positive for weakness (C/O BUE and BLE weakness and heaviness), lightheadedness (Note a couple times BP was elevated and HR was below 60) and other (LLE numbness and tingling below the knee since TIA ); negative for frequent falls, headache(s), blurry vision, double vision, dizziness, orthostatic symptoms, near syncope, syncope or lack of coordination Connor Hematologic/Lymphatic: Negative for easy bruising or easy bleeding Endo Endo: Positive for fatigue; negative for excessive sweating or increased thirst/drinking Psych Psych: Negative for anxiety or depression Allergy Allergy/Immunology: Negative for hives, Negative for rash Cardiology Exam Const Appearance: cooperative, healthy appearing, well developed, well groomed and no acute distress Nutritional Appearance: well nourished and average body habitus Orientation: alert, awake and oriented x3 Head Head: normal to inspection, normocephalic and atraumatic Ears: hearing grossly normal bilaterally and external ears normal Nose: external nose normal, nasal mucous membranes and turbinates normal, nares normal, septum normal, no nasal discharge Face and Sinus: face symmetric Mouth: oral mucosae normal, tongue normal, oropharynx normal and moist mucous membranes Teeth and gingiva: dentition normal Throat: posterior oropharynx normal, tonsils normal and uvula midline Eyes General: appearance normal, both eyes and all related structures Eyelids: eyelids normal Conjunctivae: conjunctivae normal Pupils: PERRL, normal by confrontation and accommodation normal EOM: EOM intact bilaterally Neck Neck: normal visual inspection, trachea midline and no JVD JVD: +5 Carotids: normal carotid upstroke and bounding pulses Chest Chest inspection: normal inspection of the chest, symmetric chest movement and normal respiratory effort Auscultation: Bilateral: Clear to Auscultation Cardio Palpation: normal PMI Rate: regular rate Rhythm: regular rhythm Heart sounds: S1 normal, S2 normal and normal, physiologic split S2; negative rub, gallop or murmur GI GI: normal to inspection, soft, no hepatosplenomegaly and bowel sounds present Neuro General: alert, awake, oriented x3, no focal sensory deficit, gait normal and moves all extremities Skin Skin: no rashes or lesions noted Extremities Pulses: Normal: Right Femoral Pulse, Left Femoral Pulse, Right Dorsalis Pedis Pulse, Left Dorsalis Pedis Pulse, Right Posterior Tibial Pulse, Left Posterior Tibial Pulse, Right Radial Pulse, Left Radial Pulse Lower Extremity Edema: None: Bilateral Musculoskel Musculoskeletal: No joint tenderness Psych Psychological: normal affect Assessment AND Plan 1. Essential (primary) hypertension I10 Plan He does have a history of essential primary hypertension which appears to be well controlled and the plan was to continue him on the same medications at this time without as making any changes. 2. Right bundle branch block I45.10 Plan He does have a history of a right bundle branch block which is likely chronic. We will continue to monitor the above. 3. Cryptogenic stroke I63.9 Plan She does have a history of cryptogenic stroke. The etiology of which is not entirely clear paroxysmal atrial fibrillation needs to be excluded and at this time I would suggest that we pursue an implantable loop recorder. Depending on these findings as well as interrogation of pacemaker clinic further recommendations will be made. The risk benefits alternatives were explained to him he understands and agrees to proceed. Orders Orders: Plan Detail Follow Up 6 Months (quality control) Coding Level of Care Code Off vis,new,level 4 Diagnoses Essential (primary) hypertension I10 Right bundle branch block I45.10 Cryptogenic stroke I63.9 Coding Level of Care Code Off vis,new,level 4 Diagnoses Essential (primary) hypertension I10 Right bundle branch block I45.10 Cryptogenic stroke I63.9 11/27/17 0956 <Electronically signed by Henry Redmond MD> Date Henry Redmond MD Cosigner Signature: Date (if applicable) CC: Pily Schultz MD THYROID STIM HORMONE Collected: 11/22/2017 Status: F Source: [place] (TSH) 10:19 AM [facility] REPOSITORY TYPE CODE TESTS RESULT OUT OF RANGE REFERENCE UNITS LAB L501.9520 0.358-3.74 uIU/mL Low TSH 0.06 Performed By: #### L501.9520, L506.0400 #### [facility] [address] [place], [place], [address] T4 FREE DIRECT Collected: 11/22/2017 Status: F Source: [place] 10:19 AM [facility] REPOSITORY TYPE CODE TESTS RESULT OUT OF REFERENCE UNITS RANGE LAB L506.0400 0.76-1.46 ng/dL High T4 FREE 1.58 DIRECT Performed By: #### L501.9520, L506.0400 #### [facility] [address] [place], [place], [address] 12 LEAD ELECTROCARDIOGRAM Observed: 11/18/2017 Status: F Source: [place] 2:44 PM [facility] Cardiovascular Services [address] [place] [address] 12 Lead EKG 11/15/17 1143 MR#: [id number] Acct: [id number] Name: TREVOR COLEMAN Rep #: [id number] : 1950 67 From: Henry Redmond MD Attending Dr: Status: DEP ER Ordering Dr: George Obrien MD Date: 11/15/17 Location: ED Sex: M C Admitted: Test Reason : NEURO S/SX Blood Pressure : / mmHG Vent. Rate : 061 BPM Atrial Rate : 061 BPM P-R Int : 198 ms QRS Dur : 158 ms QT Int : 448 ms P-R-T Axes : 029 -19 011 degrees QTc Int : 450 ms Normal sinus rhythm Right bundle branch block Abnormal ECG Confirmed by HENRY REDMOND MD ([id number]), business editor SHALOM HUGHES ([id number]) on 11/18/2017 2:44:06 PM Referred By: ALLY Confirmed By:HENRY REDMOND MD 11/18/17 1444 Date Henry Redmond MD CC: Liseth Del Valle DO; George Obrien MD Signed EMERGENCY DEPARTMENT Observed: 11/15/2017 Status: F Source: [place] SUMMARY 2:46 PM [facility] Medical Records Department [address] [place] [address] Emergency Department Summary 11/15/17 1115 MR#: [id number] Acct: [id number] Name: TREVOR COLEMAN Rep #: [id number] : 1950 67 From: George Obrien MD PCP: Liseth Del Valle DO Status: DEP ER - ER Visit Summary Date of Service: 11/15/17 Chief Complaint: Lightheadedness, tingling History of Present Illness: The patient is a 67 M presents to the emergency department just feeling unwell. The patient was recently hospitalized for a stroke. He was found to have a small ischemic event in his left. The patient was started on Plavix. He was discharged home. He states since his stroke, he is just felt off. Today, he was playing golf. He states he felt mildly lightheaded. He states as of the day went on, he began to feel worse. He states he began to have some tingling in both of his arms. When he had his stroke 3 weeks ago, he had tingling and some clumsiness on the right side. He states today, it was just tingling in both of the shoulders and in both of his arms. He was feeling lightheaded and mildly dizzy. He was also nauseated. He states he began to have some tremors in route. He states that there are some components that feels similar to his stroke, but he states it also feels different. His only new medication is Plavix. He denies chest pain. He denies orthopnea. He has had no trauma. He denies headache. Physical Examination: Vital signs reviewed General: Well-nourished, well-developed Head: Normocephalic, atraumatic Eyes: Pupils equal and reactive, extraocular muscles intact Neck, supple, no lymphadenopathy Heart: Regular rate and rhythm Respiratory: No distress, clear bilaterally Abdomen: Soft, nontender, nondistended, no peritoneal signs Back: Nontender Extremities: Nontender, no edema, no cords Skin: Normal color no rash Neuro: Alert and oriented, no focal or lateralizing deficits Test Results: [] Emergency Department Course and Treatment: The patient presents with lightheadedness and paresthesias. The paresthesias involved both arms and his feet. My suspicion for acute neurologic process is low, but given the patient's recent admission for stroke, I did pursue a metabolic workup. His labs are unremarkable. His EKG showed sinus rhythm with a few PVCs. There was no dysrhythmia or atrial fibrillation. Patient's head CT shows no hemorrhage does demonstrate old stroke. On reevaluation, he is resting comfortably. He said no progression of his symptoms. The symptoms are different than his initial stroke presentation. At this time, the patient is already on Plavix. His blood pressure is under good control. He has diffuse neurologic symptoms without any focality. I do not suspect TIA or acute stroke as the cause of his symptoms. I do feel that the patient is safe for discharge and outpatient follow-up. He and are comfortable with this plan of care. Treatment Plan: [] Disposition: Discharge Impression: Paresthesias This note was generated with [employer] dictation software. It may contain incorrect words, spelling, and punctuation that were not noted in review of the chart prior to signing ED Disposition - Plan for ED Patient: Disposition: Home or Assisted Living Chief Complaint: Numb/Ting Instructions: ED Paraesthesias Referrals: Liseth Del Valle, DO [Primary Care Provider] - What to do if you have Problems For any increased pain, shortness of breath, bleeding, nausea or vomiting, chest pain, or any unexpected problems, contact your Primary Care Provider. Call [facility] ([phone]) or report to the closest Emergency Room. Call 911 if necessary. 11/15/17 1446 <Electronically signed by George Obrien MD> Date George Obrien MD Cosigner Signature (If Indicated): Date CC: Liseth Jamarcusjosselyn DO BEDSIDE GLUCOSE Collected: 11/15/2017 Status: F Source: [place] 11:29 AM [facility] REPOSITORY TYPE CODE TESTS RESULT OUT OF RANGE REFERENCE UNITS LAB L501.080 70-110 mg/dL Normal BEDSIDE GLU 98 Result Comment: MANAGEMENT OF PATIENT CARE PER NURSING PROTOCOL Performed By: #### L501.080 #### [facility] Point of Care [address] [place], [place] [address] [place] [address] CBC W/DIFF, AUTOMATED Collected: 11/15/2017 Status: F Source: [place] 11:15 AM [facility] REPOSITORY TYPE CODE TESTS RESULT OUT OF RANGE REFERENCE UNITS LAB L100.1000 4.4-11.0 K/mm3 Normal WBC 5.8 LAB L100.1200 4.6-6.2 M/mm3 Normal RBC 4.74 LAB L100.1300 13.0-16.5 g/dl Normal HGB 15.2 LAB L100.1400 40-54 % Normal HCT 44.2 LAB L100.1500 80-94 fL Normal MCV 93.2 LAB L100.1600 27.0-32.0 pg High MCH 32.1 LAB L100.1700 32-36 g/gl Normal MCHC 34.4 LAB L100.1810 11.6-14.6 % Normal RDW CV 12.1 LAB L100.1820 35.1-43.9 fl Normal RDW SD 40.9 LAB L100.1900 150-450 K/mm3 Normal PLT 160 LAB L100.2000 6.2-12.0 fl Normal MPV 10.8 LAB L100.2100 47-70 % Normal NEUT% 56.4 LAB L100.2200 19-41 % Normal LY% 33.3 LAB L100.2300 0-10 % Normal MONO% 8.8 LAB L100.2400 0-5 % Normal EO% 1.2 LAB L100.2500 0-1 % Normal BASO% 0.3 LAB L100.2550 0.0-0.9 % Normal IM GRAN % 0.000 Result Comment: IG% - Immature Granulocytes (promyelocytes, myelocytes and metamyelocytes) > 1% indicates that a LEFT SHIFT is Present. LAB L100.2620 2.0-7.7 X10 3/uL Normal Absolute Neut 3.3 LAB L100.2720 0.83-4.51 X10 3/ul Normal Absolute Lymph 1.93 Performed By: #### L100.0100 #### [facility] [address] [facility] [place], [place], [address] CHEST 1 VIEW Observed: 11/15/2017 Status: F Source: [place] 11:15 AM [facility] Imaging Services [address] [place] [address] Chest 1 View MR#: [id number] Acct: [id number] Name: JAYCETREVOR John Rep #: [id number] : 1950 M 67 From: Beth Loya MD PCP: Status: PRE ER Study: Chest 1 View Date of Exam: 11/15/17 Exam# [id number] Ordering Dr: George Obrien MD STUDY: X-RAY CHEST REASON FOR EXAM: Male, 67 years old. Chest pain TECHNIQUE: Single AP portable view of the chest. COMPARISON: None. FINDINGS: The lungs are clear and expanded. There is no demonstrated pleural abnormality. Normal size heart. Normal mediastinum and emelyn. Normal visualized pulmonary arteries. Normal visualized aortic arch and descending thoracic aorta. Normal visualized thoracic spine. Normal visualized ribs, clavicles, and shoulders. There is no demonstrated abnormality of the visualized soft tissue structures of the upper abdomen. RAD/Chest 1 View IMPRESSION: Normal x-ray examination of the chest. Electronically Signed: Beth Loya MD at 11:30 EDT Tel , Service support , CC: George Obrien MD Sole Layer: Signed BASIC METABOLIC Collected: 11/15/2017 Status: F Source: [place] PROFILE (BMP) 11:15 AM [facility] REPOSITORY TYPE CODE TESTS RESULT OUT OF RANGE REFERENCE UNITS LAB L501.0100 74-106 mg/dL Normal GLU 104 Result Comment: Fasting Glucose result from 100 to 125 mg/dL suggests IMPAIRED HOMEOSTASIS per A.D.A. criteria. Please note revised GLUCOSE reference range effective 2017. LAB L501.1000 7-18 mg/dL High BUN 19 LAB L501.1100 0.70-1.30 mg/dL Normal CREAT,SERUM 1.12 Result Comment: The validity of the calculated GFR AND GFRAA in patients over 70 years has not been determined. Clinical correlation is essential. LAB L501.1110 >60 mL/min Normal EST GFR 69 Result Comment: Non- GFR Calc LAB L501.1115 >60 mL/min Normal EST GFR - AA 84 Result Comment: GFR Calc LAB L501.1255 ml/min Normal Estimated CRCL 70.25 LAB L501.1300 10-20 RATIO Normal BUN/CRE 17.0 LAB L501.2200 8.5-10 mg/dL Normal .1 CA 9.1 LAB L501.5300 136-14 mmol/L Normal 5 NA 139 LAB L501.5600 3.5-5. mmol/L Normal 1 K 4.3 Result Comment: Slight Hemolysis, Result may be falsely increased. LAB L501.5900 98-107 mmol/L Normal CL 105 LAB L501.6100 21.0-32.0 mmol/L Normal CO2 28.0 LAB L501.6200 5-15 Normal 6 GAP Performed By: #### L500.2500, L501.4010 #### [facility] [address] [place], [address] TROPONIN-I Collected: 11/15/2017 Status: F Source: [place] 11:15 AM [facility] REPOSITORY TYPE CODE TESTS RESULT OUT OF RANGE REFERENCE UNITS LAB L501.4010 <0.045 ng/mL Normal < 0.015 TROPONIN-I Result Comment: TROPONIN-I EXPECTED VALUES <0.045 Negative 0.045 - 0.590 Consistent with Cardiac Damage > OR = 0.600 Critical Value Not every elevated troponin is indicative of SD. These values should be used with clinical judgement in examining the patient's clinical picture for diagnosis. To establish a diagnosis of SD versus myocardial injury, there must be a demonstrated rise and/or fall in the troponin values, in addition to ischemic symptoms, EKG changes, new regional wall motion abnormality, and/or angiographical evidence. PLEASE NOTE: REFERENCE RANGES EDITED 17 Performed By: #### L500.2500, L501.4010 #### [facility] [address] [place], [place], [address] PROTHROMBIN TIME W/INR Collected: 11/15/2017 Status: F Source: [place] 11:15 AM [facility] REPOSITORY TYPE CODE TESTS RESULT OUT OF RANGE REFERENCE UNITS LAB L300.4150 11.7-14.9 SECONDS Normal PROTIME 13.5 LAB L300.4200 Normal INR 1.0 Performed By: #### L300.3900, L300.4310 #### [facility] [address] [place], [address] PARTIAL THROMBOPLAST Collected: 11/15/2017 Status: F Source: [place] TIME 11:15 AM [facility] REPOSITORY TYPE CODE TESTS RESULT OUT OF RANGE REFERENCE UNITS LAB L300.4310 24.1-36.2 Seconds Normal PTT 34.5 Performed By: #### L300.3900, L300.4310 #### [facility] [address] [place], [address] BRAIN/HEAD WITHOUT Observed: 11/15/2017 Status: F Source: [place] CONTRAST 11:15 AM [facility] Imaging Services [address] [place] [address] Brain/Head without Contrast MR#: [id number] Acct: [id number] Name: TREVOR COLEMAN Rep #: [id number] : 1950 M 67 From: Beth Loya MD PCP: Status: PRE ER Study: Brain/Head without Contrast Date of Exam: 11/15/17 Exam# [id number] Ordering Dr: George Obrien MD STUDY: CT BRAIN WITHOUT CONTRAST REASON FOR EXAM: Male, 67 years old. CVA RADIATION DOSAGE (If Supplied By Facility): CTDIvol = ( 44.99 ) mGy, DLP = ( 812.98 ) mGycm TECHNIQUE: Transaxial CT imaging of the brain was performed without administration of intravenous contrast material. Individualized dose optimization techniques were used for this CT. COMPARISON: None. FINDINGS: Normal soft tissue structures. Normal calvarium. Normal size ventricles and extra-axial spaces for the patient's age. There are areas of decreased attenuation within the white matter tracts of the supratentorial brain, consistent with microvascular disease changes. Normal basal ganglia and thalami. Normal brainstem. There is a small old infarction in the inferior aspect of the right cerebellar hemisphere. There is no intracranial hemorrhage. There are no findings of an acute ischemic infarction. Normal visualized paranasal sinuses. CT/Brain/Head without Contrast IMPRESSION: Chronic involutional changes of the brain. There is a small old infarction in the inferior aspect of the right cerebellar hemisphere. Electronically Signed: Beth Loya MD at 12:01 EDT Tel , Service support , CC: Goerge Obrien MD Sole Layer: Signed PROGRESS Observed: 11/12/2017 Status: COMPLETED Source: [place] 2:47 PM [facility] REPOSITORY [place] ID: [id number] Author: Jersey Olson ([facility]) Tina Service: (none) Author Type: Physician Fisher Dip Net Type: Progress Notes Filed: 11/12/2017 3:52 PM Note Text: Jersey Wilder PA-C [facility] [address] [address] Dear Liseth Del Valle DO, Rick L Virginia is a pleasant 67 year old male who comes in to the office on 11/12/2017 for follow-up regarding his Lumbar spine. Pt. Accompanied by: Spouse Subjective: Compared to his last visit he is the same. Mr. Coleman did not get a chance to go back to physical therapy. He ended up suffering a small stroke last month and is now on a blood thinner which prohibits the use of NSAIDs. He still describes low back pain at the lumbosacral junction over the PSIS right worse than left. He denies radiating leg pain, numbness, tingling, weakness. ROS: Normal sleep, appetite and activity. No fevers, malaise or unintentional weight loss. Current Outpatient Prescriptions: clopidogrel (PLAVIX) 75 mg tablet Take 75 mg by mouth once daily. Disp: Rfl: methylPREDNISolone (MEDROL, NAM,) 4 mg Dose-Pack Take as directed on package. Disp: 1 Package Rfl: 0 amLODIPine (NORVASC) 5 mg tablet Take 1 tablet by mouth once daily. (Patient taking differently: Take 10 mg by mouth once daily. ) Disp: 90 tablet Rfl: 3 atorvastatin (LIPITOR) 40 mg tablet Take 1 tablet by mouth once daily. Disp: 90 tablet Rfl: 3 aspirin, enteric coated (ASPIRIN, ENTERIC COATED) 81 mg EC tablet Take 81 mg by mouth once daily. Disp: Rfl: levothyroxine (LEVOXYL) 175 mcg tablet Take 1 tablet by mouth once daily. Take on empty stomach. For thyroid. (Patient taking differently: Take 188 mcg by mouth once daily. Take on empty stomach. For thyroid. ) Disp: 90 tablet Rfl: 4 triamcinolone acetonide (KENALOG) 0.1 % cream Apply to affected area twice daily. Disp: Rfl: hydrocortisone 2.5 % ointment Apply to affected area twice daily. Disp: Rfl: fexofenadine-pseudoephedrine (RAHEL-D) 60-120 mg per tablet Take 1 tablet by mouth every 12 hours as needed (sinus congestion/cold symptoms). Disp: 30 tablet Rfl: 11 Cholecalciferol, Vitamin D3, (VITAMIN D-3) 2,000 unit tab Take 1 tablet by mouth once daily. Disp: 360 tablet Rfl: 1 No current facility-administered medications for this visit. Exam: There were no vitals taken for this visit. There is no height or weight on file to calculate BMI. Station and Gait: Normal stance, normal gait. Motor: 5/5 throughout bilat LE Reflexes: normoreflexic throughout LE Sensory: Normal sensation throughout LE Imaging: Plain x-rays were reviewed with him in detail during today's visit. There is evidence of lower lumbar facet disease without instability appreciated on standing and bending films. His MRI scan was also reviewed with him today and there is multilevel disc degeneration with some foraminal stenosis and possible S1 impingement but he really does not have any symptoms that correlates with this well. Assessment/Plan: Encounter Diagnosis ICD-10-CM 1. Spinal stenosis, lumbar region, without neurogenic claudication M48.061 2. Lumbar facet arthropathy M47.816 RTC: on an as-needed basis (PRN) Other/Discussion: Based on exam and regretted findings this far, it seems that he has pain at the PSIS or musculotendinous junction locally that is giving him recurrent and episodic symptoms. Ideally, he should do all he can to manage symptoms going forward with HEP, occasional anti-inflammatories when he is allowed to take them again, stretches, icing, core strengthening. I would consider the idea of localized trigger point injections for his pain. He wants to hold off for now on injected steroid especially since his symptoms are at a low point currently. This document has been created with the use of voice recognition technology. It may contain inaccuracies: (e.g. misspellings, inaccurate syntax or word sense) that have escaped review. HERNAN Li Ma CNOV Observed: 11/12/2017 Status: COMPLETED Source: [place] 2:40 PM [facility] REPOSITORY Office Visit (SPNMED) VIRGINIATREVOR Lopez ([id number]) 1950 M Date Time Provider Department 11/12/17 2:40 PM JERSEY WILDER (PAC) SPNMED During your visit today, we recorded the following information about you: Pulse Blood pressure Weight Height 71/minute 113/71 101.6 kg 1.829 m VAN Gong 11/12/2017 3:52 PM Signed Jersey Wilder PA-C [facility] [address] [place] [address] Dear Liseth Del Valle DO, Rick L Virginia is a pleasant 67 year old male who comes in to the office on 11/12/2017 for follow-up regarding his Lumbar spine. Pt. Accompanied by: Spouse Subjective: Compared to his last visit he is the same. Mr. Coleman did not get a chance to go back to physical therapy. He ended up suffering a small stroke last month and is now on a blood thinner which prohibits the use of NSAIDs. He still describes low back pain at the lumbosacral junction over the PSIS right worse than left. He denies radiating leg pain, numbness, tingling, weakness. ROS: Normal sleep, appetite and activity. No fevers, malaise or unintentional weight loss. Current Outpatient Prescriptions: clopidogrel (PLAVIX) 75 mg tablet Take 75 mg by mouth once daily. Disp: Rfl: methylPREDNISolone (MEDROL, NAM,) 4 mg Dose-Pack Take as directed on package. Disp: 1 Package Rfl: 0 amLODIPine (NORVASC) 5 mg tablet Take 1 tablet by mouth once daily. (Patient taking differently: Take 10 mg by mouth once daily. ) Disp: 90 tablet Rfl: 3 atorvastatin (LIPITOR) 40 mg tablet Take 1 tablet by mouth once daily. Disp: 90 tablet Rfl: 3 aspirin, enteric coated (ASPIRIN, ENTERIC COATED) 81 mg EC tablet Take 81 mg by mouth once daily. Disp: Rfl: levothyroxine (LEVOXYL) 175 mcg tablet Take 1 tablet by mouth once daily. Take on empty stomach. For thyroid. (Patient taking differently: Take 188 mcg by mouth once daily. Take on empty stomach. For thyroid. ) Disp: 90 tablet Rfl: 4 triamcinolone acetonide (KENALOG) 0.1 % cream Apply to affected area twice daily. Disp: Rfl: hydrocortisone 2.5 % ointment Apply to affected area twice daily. Disp: Rfl: fexofenadine-pseudoephedrine (RAHEL-D) 60-120 mg per tablet Take 1 tablet by mouth every 12 hours as needed (sinus congestion/cold symptoms). Disp: 30 tablet Rfl: 11 Cholecalciferol, Vitamin D3, (VITAMIN D-3) 2,000 unit tab Take 1 tablet by mouth once daily. Disp: 360 tablet Rfl: 1 No current facility-administered medications for this visit. Exam: There were no vitals taken for this visit. There is no height or weight on file to calculate BMI. Station and Gait: Normal stance, normal gait. Motor: 5/5 throughout bilat LE Reflexes: normoreflexic throughout LE Sensory: Normal sensation throughout LE Imaging: Plain x-rays were reviewed with him in detail during today's visit. There is evidence of lower lumbar facet disease without instability appreciated on standing and bending films. His MRI scan was also reviewed with him today and there is multilevel disc degeneration with some foraminal stenosis and possible S1 impingement but he really does not have any symptoms that correlates with this well. Assessment/Plan: Encounter Diagnosis ICD-10-CM 1. Spinal stenosis, lumbar region, without neurogenic claudication M48.061 2. Lumbar facet arthropathy M47.816 RTC: on an as-needed basis (PRN) Other/Discussion: Based on exam and regretted findings this far, it seems that he has pain at the PSIS or musculotendinous junction locally that is giving him recurrent and episodic symptoms. Ideally, he should do all he can to manage symptoms going forward with HEP, occasional anti-inflammatories when he is allowed to take them again, stretches, icing, core strengthening. I would consider the idea of localized trigger point injections for his pain. He wants to hold off for now on injected steroid especially since his symptoms are at a low point currently. This document has been created with the use of voice recognition technology. It may contain inaccuracies: (e.g. misspellings, inaccurate syntax or word sense) that have escaped review. HERNAN Li Ma Referring Provider: JERSEY WILDER ([facility]) [[id number]] Allergies As of Date: 11/12/2017 Noted Allergy Reaction ADHESIVE 07/10/2016 2 - Rash SULFA (SULFONAMIDE ANTIBIOTICS) 02/08/2005 TAPAZOLE (METHIMAZOLE) 01/25/2010 2 - Rash Date Reviewed: 11/12/2017 Reviewed by: Guera De Santiago Ma - Fully Assessed Reason for Visit: Follow Up [171] Primary Visit Diagnosis:Spinal stenosis, lumbar region, without neurogenic claudication [M48.061] Other Visit Diagnosis:Lumbar facet arthropathy [M47.816] Prescriptions as of 11/12/2017 Sig: CLOPIDOGREL 75 MG TABLET Take 75 mg by mouth once lokesh* AMLODIPINE 5 MG TABLET Take 1 tablet by mouth once d* Patient taking differently: Take 10 mg by mouth once lokesh* ATORVASTATIN 40 MG TABLET Take 1 tablet by mouth once d* ASPIRIN 81 MG TABLET,DELAYED * Take 81 mg by mouth once lokesh* LEVOTHYROXINE 175 MCG TABLET Take 1 tablet by mouth once d* Patient taking differently: Take 188 mcg by mouth once da* TRIAMCINOLONE ACETONIDE 0.1 %* Apply to affected area twice* HYDROCORTISONE 2.5 % TOPICAL * Apply to affected area twice* CHOLECALCIFEROL (VITAMIN D3) * Take 1 tablet by mouth once d* METHYLPREDNISOLONE 4 MG TABLE* Take as directed on package. Patient not taking: Reported on 11/12/2017 FEXOFENADINE 60 MG-PSEUDOEPHE* Take 1 tablet by mouth every * Patient not taking: Reported on 11/12/2017 Problem List As Of Date 11/12/2017 Noted Resolved Hemorrhoid [K64.9] INVALID FOR* Postablative Hypothyroidism [E89.0] INVALID FOR* More... Low Back Pain [M54.5] INVALID FOR* Scaly Patch Rash [R21] INVALID FOR* Impaired Fasting Glucose [R73.01] INVALID FOR* Hyperthyroidism [E05.90] INVALID FOR*11/09/2009 Hypothyroidism [E03.9] INVALID FOR*11/09/2009 Psoriasis [L40.9] INVALID FOR* Essential hypertension [I10] INVALID FOR* Cerebrovascular accident (CVA) (HCC) [I63.9] INVALID FOR* Obstructive sleep apnea (adult) (pediatric) [G4*INVALID FOR* Spinal stenosis, lumbar region, without neuroge*INVALID FOR* Lumbar facet arthropathy [M47.816] INVALID FOR* Disposition: Return if symptoms worsen or fail to improve. Follow-up and Disposition History Recorded Encounter Status:Closed by JERSEY WILDER PA-C on 11/12/17 PSA,TOTAL - ANNUAL Collected: 11/08/2017 Status: F Source: [place] SCREEN 4:17 PM [facility] REPOSITORY TYPE CODE TESTS RESULT OUT OF RANGE REFERENCE UNITS LAB L501.9910 0.00-4.00 ng/mL Normal PSA,TOT 2.38 SCREEN Result Comment: This test was performed using the TPSA assay method for the [employer] chemistry system. Values obtained with different assay methods cannot be used interchangably. When changing PSA assays in the course of monitoring a patient, additional sequential testing should be carried out to confirm baseline values. Performed By: #### L501.9910 #### [facility] [address] [place], [address] XR LUMBAR 4V AP/LAT/ Observed: 11/06/2017 Status: F Source: [place] FLEX/EXT 5:07 PM [facility] REPOSITORY * * *Final Report* * * DATE OF EXAM: Nov 06 2017 5:07PM WOX [id number] - XR LUMBAR 4V AP/LAT/ FLEX/EXT / PROCEDURE REASON: multiple diagnoses * * * * Physician Interpretation * * * * Clinical information: Low back pain AP, lateral, and flexion-extension views of the lumbar spine were obtained. No fracture is identified. Alignment is satisfactory. Vertebral body heights are maintained. Disc space narrowing involving L4-5 and L5-S1. Spurring at L4-5. Facet hypertrophy lower lumbar spine. No instability on flexion and extension views. No lytic or blastic lesions are seen. IMPRESSION: Degenerative changes lower lumbar spine. Sole Layer: PSCB Transcribe Date/Time: Nov 07 2017 3:15P Dictated by : FEDE ROMERO MD This examination was interpreted and the report reviewed and electronically signed by: FEDE ROMERO MD on Nov 07 2017 3:17PM EST [id number] Observed: 11/06/2017 Status: COMPLETED Source: [place] 4:55 PM [facility] [place] REPOSITORY O ID: [id number] Author: Danyell Herron (Rt) Ron Agustin Service: (none) Author Type: Engineering Model Maker Type: Progress Notes Filed: 11/06/2017 5:04 PM Note Text: Radiology Service Progress Note PATIENT NAME: Trevor Coleman DATE OF SERVICE: November 06, 2017 TIME: 4:55 PM PATIENT IDENTITY VERIFICATION COMPLETED USING TWO (2) METHODS: Patient confirmed name verbally and Date of . PATIENT GENDER DATA: Male PATIENT RELEVANT IMPLANT DATA REVIEWED: Not Applicable RADIOLOGY DEPARTMENT: General X-ray: Exam(s) Completed: Spine X-Ray(s): Lumbar AP / LAT / L5-S1 / FLEX-EXT PERIPHERAL IV DATA: Not applicable SIGNED BY: RT Jillian November 06, 2017 4:55 PM EMERGENCY DEPARTMENT Observed: 11/05/2017 Status: F Source: [place] SUMMARY 3:03 PM [facility] REPOSITORY [facility] Medical Records Department [address] [place] [address] Emergency Department Summary 10/29/17 1106 MR#: [id number] Acct: [id number] Name: TREVOR COLEMAN Rep #: [id number] : 1950 67 From: Karol Pearson DO PCP: Liseth Del Valle DO Status: DEP ER - ER Visit Summary Date of Service: 10/29/17 Chief Complaint: [Dizziness presents the emergency department with complaint of dizziness that started] History of Present Illness: The patient is a 67 M [this morning. Patient states that he woke up feeling pretty good today and he and his went to the bank. On walking into the bank patient felt lightheaded. Patient denied any paresthesias. He denied any chest pain. He denied feeling presyncopal. He denies any palpitations. Patient believes he may have started to panic being that he was just discharged from the hospital yesterday after being diagnosed with a stroke. Patient was seen in the emergency department by myself 2 days ago and was admitted after he had a episode of paresthesias to the right arm that lasted approximately 10 minutes. Patient's MRI did reveal that he did have a left- sided acute infarct. Patient was started on Plavix and discharged home yesterday. Patient currently denies any weakness. He denies any vertiginous symptoms. He denies any headache. He denies any falls or head injuries. He denies any fever although he has had some mild cold-like symptoms for a week he states.] Physical Examination: [HEENT-PERRLA, EOMI. Cranial nerves II through XII grossly intact. TMs clear. Mucous membranes moist. No adenopathy. Cardiovascular-regular rate and rhythm without murmur or ectopy Lungs-clear to auscultation, chest wall stable without crepitus or subcu emphysema Abdomen-normoactive bowel sounds, soft, nontender, no rebound or rigidity, no peritoneal signs. Extremities-intact 4, normal range of motion, normal pulses, atraumatic Neuro exam-] finger-nose and heel pizano testing within normal limits, negative Romberg, negative pronator drift, fundi benign. No facial droop noted. NIH stroke scale was 0. Test Results: [EKG obtained shows sinus rhythm with a ventricular rate of 65 bpm with a right bundle branch block. CBC with differential showing a 7.2, hemoglobin 15.4, hematocrit 46, platelets 148. Chemistries were unremarkable. Troponin was less than 0.015.] CT scan of the brain with contrast showed chronic cerebellar infarct otherwise nothing acute. Orthostatic vital signs were negative. Emergency Department Course and Treatment: [] Treatment Plan: [Case was discussed with Dr. Hannah who was on-call for neurology and saw patient in the hospital yesterday. No further workup is felt to be indicated at this time or further treatment. Strokes have been small vessel ischemia and spelled believed likely to be due to long-standing hypertension. Patient is scheduled to have a event monitor placed today and he is to keep that appointment.] I suspect there is also an anxiety component at this point. Patient was noted to be quite hypertensive on her initial presentation to the emergency department with a blood pressure 197/104 however once resting blood pressure normalized and prior to discharge is now 130s over 80s. Disposition: [Discharged home in stable condition] Impression: [Dizziness Transient hypertension.] This note was generated with [employer] software. It may contain incorrect words, spelling, and punctuation that were not noted in review of the chart prior to signing ED Disposition - Plan for ED Patient: Chief Complaint: Dizziness Referrals: Liseth Del Valle, DO [Primary Care Provider] - What to do if you have Problems For any increased pain, shortness of breath, bleeding, nausea or vomiting, chest pain, or any unexpected problems, contact your Primary Care Provider. Call [facility] ([phone]) or report to the closest Emergency Room. Call 911 if necessary. 11/05/17 1503 <Electronically signed by Karol Pearson DO> Date Karol Pearson DO Cosigner Signature (If Indicated): Date CC: Liseth Del Valle DO CNOV Observed: 11/01/2017 Status: COMPLETED Source: [place] 11:00 AM [facility] OTHER [place] REPOSITORY Office Visit (NSAGBA) TREVOR COLEMAN ([id number]) 1950 M Date Time Provider Department 11/01/17 11:00 AM HANSEL RAMSEY JR During your visit today, we recorded the following information about you: Pulse Respiration Weight Height 68/minute 17/minute 100.2 kg 1.829 m Hansel Ramsey MD 11/01/2017 11:59 AM Signed ESTABLISHED PATIENT VISIT HISTORY OF PRESENT ILLNESS: Trevor Coleman is a 67 year old male, There were no vitals taken for this visit. with a PMH significant for: 1. Spinal stenosis of lumbar region without neurogenic claudication - ICD9: 724.02, ICD10: M48.061 (primary diagnosis) Provided medrol dose nam last visit. Also completed MRI L spine on 07/15/17. That study showed: MILD IMPINGEMENT OF TRAVERSING RIGHT S1 NERVE AT L5-S1 DETAILED. 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 NO ADDITIONAL SIGNIFICANT SIGNIFICANT CANAL OR FORAMINAL NARROWING.? 2. History of stroke - ICD9: V12.54, ICD10: Z86.73 Overall patient doing well last visit. ?On ASA and statin. 3. Obstructive sleep apnea syndrome - ICD9: 327.23, ICD10: G47.33 Positional therapy. This past Saturday, patient had stroke and was seen at [facility]. States he had finished playing golf and suddenly felt there was an echo in his head, developed some nausea, and then became clammy and weak. Per ER note pt complained of RUE paresthesisas . Lasted few minutes and EMS called. Taken to [place]. Records reviewed from stroke workup and will be scanned into the chart. MRI brain per report showed and acute L parietal infarct. CTA head and neck and ECHO were unremarkable. He was started on dual antiplt therapy of both ASA and Plavix. He was in hospital one night and released the next day. He states since the stroke he feels funny. As result of this he went back to the ER on Saturday of this past week. Patient at that time had a basic workup and was sent home. He did have a repeat CT brain with no evidence of hemorrhagic conversion. He states that since stroke he feels tingling around his mouth and both hands. Patient was discharged with a 30 day event monitor. Patient with multiple questions regarding event that I answered as best I could given that I was not present at time of the event. Regarding history of ASYA, he stays on his side - I cannot sleep on my back. He denies snoring or witnessed apneas. Back pain varies from day to day - can be vary painful to not painful at all. States he did see Jersey ARAUJO. Recommended physical therapy. REVIEW OF SYSTEMS GENERAL:No weight loss, malaise or fevers. HEENT:Negative for frequent or significant headaches, No changes in hearing or vision, no nose bleeds or other nasal problems NECK:Negative for lumps, goiter, pain and significant neck swelling RESPIRATORY: Negative for cough, wheezing or shortness of breath. CARDIOVASCULAR: Negative for chest pain, leg swelling or palpitations. GASTROINTESTINAL: Negative for abdominal discomfort, blood in stools or black stools or change in bowel habits GENITOURINARY: No history of dysuria, frequency or incontinence MUSCULOSKELETAL: Negative for joint pain or swelling, back pain or muscle pain. NEUROLOGIC:Negative for focal numbness or weakness, headaches and dizziness or syncope, vision changes, speech/languag changes - EXCEPT that as per HPI above. SKIN:Negative for lesions, rash, and itching. HEMATOLOGIC/LYMPHATIC/IMMUNOLOGIC:Negative for prolonged bleeding, bruising easily or swollen nodes. ENDOCRINE: Negative for cold or heat intolerance, polyuria, polydipsia and goiter. The remainder of the ROS was reviewed and is negative. LAB/IMAGING: Those performed since patient's last visit have been reviewed. Glucose (mg/dL) Date Value 09/19/2016 109 (H) BUN (mg/dL) Date Value 09/19/2016 20 Creatinine (mg/dL) Date Value 09/19/2016 1.07 Sodium (mmol/L) Date Value 09/19/2016 140 Potassium (mmol/L) Date Value 09/19/2016 4.1 Chloride (mmol/L) Date Value 09/19/2016 102 CO2 (mmol/L) Date Value 09/19/2016 28 Protein, Total (g/dL) Date Value 09/19/2016 6.3 Albumin (g/dL) Date Value 09/19/2016 3.9 Calcium (mg/dL) Date Value 09/19/2016 9.4 Alkaline Phosphatase (U/L) Date Value 09/19/2016 37 Bilirubin, Total (mg/dL) Date Value 09/19/2016 1.2 AST (U/L) Date Value 09/19/2016 21 ALT (U/L) Date Value 09/19/2016 33 Rheumatoid Factor (IU/mL) Date Value 06/09/2009 14 Hep C Antibody IA (no units) Date Value 08/11/2015 Negative MEDICATIONS: methylPREDNISolone (MEDROL, NAM,) 4 mg Dose-Pack Take as directed on package. amLODIPine (NORVASC) 5 mg tablet Take 1 tablet by mouth once daily. atorvastatin (LIPITOR) 40 mg tablet Take 1 tablet by mouth once daily. aspirin, enteric coated (ASPIRIN, ENTERIC COATED) 81 mg EC tablet Take 81 mg by mouth once daily. levothyroxine (LEVOXYL) 175 mcg tablet Take 1 tablet by mouth once daily. Take on empty stomach. For thyroid. triamcinolone acetonide (KENALOG) 0.1 % cream Apply to affected area twice daily. hydrocortisone 2.5 % ointment Apply to affected area twice daily. fexofenadine-pseudoephedrine (RAHEL-D) 60-120 mg per tablet Take 1 tablet by mouth every 12 hours as needed (sinus congestion/cold symptoms). Cholecalciferol, Vitamin D3, (VITAMIN D-3) 2,000 unit tab Take 1 tablet by mouth once daily. HISTORIES PAST MEDICAL HISTORY Diagnosis Date - Hypertension - Stroke (HCC) FAMILY HISTORY Problem Relation Age of Onset - None Mother - Heart Father BYPASS SOCIAL HISTORY Social History Substance Use Topics - Smoking status: Never Smoker - Smokeless tobacco: Never Used - Alcohol use Yes Comment: rare PHYSICAL EXAMINATION Pulse 68, resp. rate 17, height 6' (1.829 m), weight 221 lb (100.2 kg), SpO2 99 %. BP 130/72 GENERAL EXAM: General appearance: NAD, pleasant. HEENT: NC/AT, nasal congestion absent, no oral lesions, membranes moist. NECK: No masses, supple. Lungs: CTA bilaterally. No wheezes present. CV: RRR nl S1, S2, no murmurs. No carotid bruits. Abd: Soft, nontender, nondistended. Bowel sounds present. Extr: No cyanosis, clubbing or edema. No evidence of fasciculations. Extremity pulses palpable and normal. Skin: Cool to touch. No rash. NEUROLOGICAL EXAM: General: Awake, alert, oriented x3 (person,place,time), speech fluent, no dysarthria; comprehension, naming, repetition intact. Short and supervisor intermediates memory intact. Fund of knowledge grossly normal by MOCA. CN: PERRL, fundi appear normal including no evidence of papilledema, EOMI and without nystagmus, VFF to confrontation, facial sensation and strength are normal and symmetric, hearing is intact to finger rub bilaterally, palate and tongue movements are intact and symmetric. SCM and trapezius strength normal. Motor: Normal tone, bulk and strength (5/5) bilaterally (throughout extremities x4). Reflexes: 2/4 and symmetric, plantar stimulation is flexor. Coordination: FNF, MATY, HTS intact. No tremors. Sensation: Light thouch, pin, vibration, temperature intact throughout. No evidence of neglect. Gait: Narrow based and stable with normal stride and arm swing. Romberg normal. Assessment and Plan: ASSESSMENT/PLAN: 1. Cerebrovascular accident (CVA), unspecified mechanism (HCC) - ICD9: 434.91, ICD10: I63.9 (primary diagnosis) Patient with new L parietal infarct of unknown etiology but likely due to HTN. Currently with non focal neuro exam and NIHSS of 0. Reviewed with pt dx, etiology, physiology, prognosis and treatment. Recommendations as follows: -Continue ASA and Plavix. -Continue Statin therapy. -BP goal <140/90. -Glucose goal <140. -Encouraged exercise. 2. Essential hypertension - ICD9: 401.9, ICD10: I10 Encouraged follow up with PCP. Goal as above. 3. Obstructive sleep apnea (adult) (pediatric) - ICD9: 327.23, ICD10: G47.33 Pt cannot get PAP secondary to AHI <5 by [facility]. Continue positional therapy. He is not endorsing symptoms. Told them to watch for snroing, witnessed apneas, unrefreshing sleep and EDS. 4. Spinal stenosis, lumbar region, without neurogenic claudication - ICD9: 724.02, ICD10: M48.061 Follow up with PT as recommended by spine center. Hansel Ramsey MD I spent 45 minutes in the visit, with more than 50% of the total [id number]-wr-[id number] time of the visit in counseling / coordination of care. Referring Provider: SELF [[id number]] Allergies As of Date: 11/01/2017 Noted Allergy Reaction ADHESIVE 07/10/2016 2 - Rash SULFA (SULFONAMIDE ANTIBIOTICS) 02/08/2005 TAPAZOLE (METHIMAZOLE) 01/25/2010 2 - Rash Date Reviewed: 11/01/2017 Reviewed by: Hansel Ramsey Jr. - Fully Assessed Reason for Visit: Follow Up [171] Cmt: Tia Primary Visit Diagnosis:Cerebrovascular accident (CVA), unspecified mechanism (HCC) [I63.9] Other Visit Diagnoses:Essential hypertension [I10] Obstructive sleep apnea (adult) (pediatric) [G47.33] Spinal stenosis, lumbar region, without neurogenic claudication [M48.061] Prescriptions as of 11/01/2017 Sig: CLOPIDOGREL 75 MG TABLET Take 75 mg by mouth once lokesh* AMLODIPINE 5 MG TABLET Take 1 tablet by mouth once d* Patient taking differently: Take 10 mg by mouth once lokesh* ATORVASTATIN 40 MG TABLET Take 1 tablet by mouth once d* ASPIRIN 81 MG TABLET,DELAYED * Take 81 mg by mouth once lokesh* LEVOTHYROXINE 175 MCG TABLET Take 1 tablet by mouth once d* Patient taking differently: Take 188 mcg by mouth once da* TRIAMCINOLONE ACETONIDE 0.1 %* Apply to affected area twice* HYDROCORTISONE 2.5 % TOPICAL * Apply to affected area twice* CHOLECALCIFEROL (VITAMIN D3) * Take 1 tablet by mouth once d* METHYLPREDNISOLONE 4 MG TABLE* Take as directed on package. Patient not taking: Reported on 11/01/2017 FEXOFENADINE 60 MG-PSEUDOEPHE* Take 1 tablet by mouth every * Patient not taking: Reported on 07/09/2017 Problem List As Of Date 11/01/2017 Noted Resolved Hemorrhoid [K64.9] INVALID FOR* Postablative Hypothyroidism [E89.0] INVALID FOR* More... Low Back Pain [M54.5] INVALID FOR* Scaly Patch Rash [R21] INVALID FOR* Impaired Fasting Glucose [R73.01] INVALID FOR* Hyperthyroidism [E05.90] INVALID FOR*11/09/2009 Hypothyroidism [E03.9] INVALID FOR*11/09/2009 Psoriasis [L40.9] INVALID FOR* Essential hypertension [I10] INVALID FOR* Cerebrovascular accident (CVA) ([facility]) [I63.9] INVALID FOR* Obstructive sleep apnea (adult) (pediatric) [G4*INVALID FOR* Spinal stenosis, lumbar region, without neuroge*INVALID FOR* Disposition: Return in about 1 month (around 12/01/2017). Follow-up and Disposition History Recorded Encounter Status:Closed by HANSEL RAMSEY on 11/01/17 PROGRESS Observed: 11/01/2017 Status: COMPLETED Source: [facility] 8:09 AM CLINIC OTHER CAMPUS REPOSITORY HNO ID: [id number] Author: Hansel Ramsey Jr. Service: (none) Author Type: Physician Type: Progress Notes Filed: 11/01/2017 11:59 AM Note Text: ESTABLISHED PATIENT VISIT HISTORY OF PRESENT ILLNESS: Trevor Coleman is a 67 year old male, There were no vitals taken for this visit. with a PMH significant for: 1. Spinal stenosis of lumbar region without neurogenic claudication - ICD9: 724.02, ICD10: M48.061 (primary diagnosis) Provided medrol dose nam last visit. Also completed MRI L spine on 07/15/17. That study showed: MILD IMPINGEMENT OF TRAVERSING RIGHT S1 NERVE AT L5-S1 DETAILED. 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 NO ADDITIONAL SIGNIFICANT SIGNIFICANT CANAL OR FORAMINAL NARROWING.? 2. History of stroke - ICD9: V12.54, ICD10: Z86.73 Overall patient doing well last visit. ?On ASA and statin. 3. Obstructive sleep apnea syndrome - ICD9: 327.23, ICD10: G47.33 Positional therapy. This past Saturday, patient had stroke and was seen at [facility]. States he had finished playing golf and suddenly felt there was an echo in his head, developed some nausea, and then became clammy and weak. Per ER note pt complained of RUE paresthesisas . Lasted few minutes and EMS called. Taken to [place]. Records reviewed from stroke workup and will be scanned into the chart. MRI brain per report showed and acute L parietal infarct. CTA head and neck and ECHO were unremarkable. He was started on dual antiplt therapy of both ASA and Plavix. He was in hospital one night and released the next day. He states since the stroke he feels funny. As result of this he went back to the ER on Saturday of this past week. Patient at that time had a basic workup and was sent home. He did have a repeat CT brain with no evidence of hemorrhagic conversion. He states that since stroke he feels tingling around his mouth and both hands. Patient was discharged with a 30 day event monitor. Patient with multiple questions regarding event that I answered as best I could given that I was not present at time of the event. Regarding history of ASYA, he stays on his side - I cannot sleep on my back. He denies snoring or witnessed apneas. Back pain varies from day to day - can be vary painful to not painful at all. States he did see Jersey Wilder PAC. Recommended physical therapy. REVIEW OF SYSTEMS GENERAL:No weight loss, malaise or fevers. HEENT:Negative for frequent or significant headaches, No changes in hearing or vision, no nose bleeds or other nasal problems NECK:Negative for lumps, goiter, pain and significant neck swelling RESPIRATORY: Negative for cough, wheezing or shortness of breath. CARDIOVASCULAR: Negative for chest pain, leg swelling or palpitations. GASTROINTESTINAL: Negative for abdominal discomfort, blood in stools or black stools or change in bowel habits GENITOURINARY: No history of dysuria, frequency or incontinence MUSCULOSKELETAL: Negative for joint pain or swelling, back pain or muscle pain. NEUROLOGIC:Negative for focal numbness or weakness, headaches and dizziness or syncope, vision changes, speech/languag changes - EXCEPT that as per HPI above. SKIN:Negative for lesions, rash, and itching. HEMATOLOGIC/LYMPHATIC/IMMUNOLOGIC:Negative for prolonged bleeding, bruising easily or swollen nodes. ENDOCRINE: Negative for cold or heat intolerance, polyuria, polydipsia and goiter. The remainder of the ROS was reviewed and is negative. LAB/IMAGING: Those performed since patient's last visit have been reviewed. Glucose (mg/dL) Date Value 09/19/2016 109 (H) BUN (mg/dL) Date Value 09/19/2016 20 Creatinine (mg/dL) Date Value 09/19/2016 1.07 Sodium (mmol/L) Date Value 09/19/2016 140 Potassium (mmol/L) Date Value 09/19/2016 4.1 Chloride (mmol/L) Date Value 09/19/2016 102 CO2 (mmol/L) Date Value 09/19/2016 28 Protein, Total (g/dL) Date Value 09/19/2016 6.3 Albumin (g/dL) Date Value 09/19/2016 3.9 Calcium (mg/dL) Date Value 09/19/2016 9.4 Alkaline Phosphatase (U/L) Date Value 09/19/2016 37 Bilirubin, Total (mg/dL) Date Value 09/19/2016 1.2 AST (U/L) Date Value 09/19/2016 21 ALT (U/L) Date Value 09/19/2016 33 Rheumatoid Factor (IU/mL) Date Value 06/09/2009 14 Hep C Antibody IA (no units) Date Value 08/11/2015 Negative MEDICATIONS: methylPREDNISolone (MEDROL, NAM,) 4 mg Dose-Pack Take as directed on package. amLODIPine (NORVASC) 5 mg tablet Take 1 tablet by mouth once daily. atorvastatin (LIPITOR) 40 mg tablet Take 1 tablet by mouth once daily. aspirin, enteric coated (ASPIRIN, ENTERIC COATED) 81 mg EC tablet Take 81 mg by mouth once daily. levothyroxine (LEVOXYL) 175 mcg tablet Take 1 tablet by mouth once daily. Take on empty stomach. For thyroid. triamcinolone acetonide (KENALOG) 0.1 % cream Apply to affected area twice daily. hydrocortisone 2.5 % ointment Apply to affected area twice daily. fexofenadine-pseudoephedrine (RAHEL-D) 60-120 mg per tablet Take 1 tablet by mouth every 12 hours as needed (sinus congestion/cold symptoms). Cholecalciferol, Vitamin D3, (VITAMIN D-3) 2,000 unit tab Take 1 tablet by mouth once daily. HISTORIES PAST MEDICAL HISTORY Diagnosis Date - Hypertension - Stroke (HCC) FAMILY HISTORY Problem Relation Age of Onset - None Mother - Heart Father BYPASS SOCIAL HISTORY Social History Substance Use Topics - Smoking status: Never Smoker - Smokeless tobacco: Never Used - Alcohol use Yes Comment: rare PHYSICAL EXAMINATION Pulse 68, resp. rate 17, height 6' (1.829 m), weight 221 lb (100.2 kg), SpO2 99 %. BP 130/72 GENERAL EXAM: General appearance: NAD, pleasant. HEENT: NC/AT, nasal congestion absent, no oral lesions, membranes moist. NECK: No masses, supple. Lungs: CTA bilaterally. No wheezes present. CV: RRR nl S1, S2, no murmurs. No carotid bruits. Abd: Soft, nontender, nondistended. Bowel sounds present. Extr: No cyanosis, clubbing or edema. No evidence of fasciculations. Extremity pulses palpable and normal. Skin: Cool to touch. No rash. NEUROLOGICAL EXAM: General: Awake, alert, oriented x3 (person,place,time), speech fluent, no dysarthria; comprehension, naming, repetition intact. Short and mcc memory intact. Fund of knowledge grossly normal by MOCA. CN: PERRL, fundi appear normal including no evidence of papilledema, EOMI and without nystagmus, VFF to confrontation, facial sensation and strength are normal and symmetric, hearing is intact to finger rub bilaterally, palate and tongue movements are intact and symmetric. SCM and trapezius strength normal. Motor: Normal tone, bulk and strength (5/5) bilaterally (throughout extremities x4). Reflexes: 2/4 and symmetric, plantar stimulation is flexor. Coordination: FNF, MATY, HTS intact. No tremors. Sensation: Light thouch, pin, vibration, temperature intact throughout. No evidence of neglect. Gait: Narrow based and stable with normal stride and arm swing. Romberg normal. Assessment and Plan: ASSESSMENT/PLAN: 1. Cerebrovascular accident (CVA), unspecified mechanism (HCC) - ICD9: 434.91, ICD10: I63.9 (primary diagnosis) Patient with new L parietal infarct of unknown etiology but likely due to HTN. Currently with non focal neuro exam and NIHSS of 0. Reviewed with pt dx, etiology, physiology, prognosis and treatment. Recommendations as follows: -Continue ASA and Plavix. -Continue Statin therapy. -BP goal <140/90. -Glucose goal <140. -Encouraged exercise. 2. Essential hypertension - ICD9: 401.9, ICD10: I10 Encouraged follow up with PCP. Goal as above. 3. Obstructive sleep apnea (adult) (pediatric) - ICD9: 327.23, ICD10: G47.33 Pt cannot get PAP secondary to AHI <5 by [facility]. Continue positional therapy. He is not endorsing symptoms. Told them to watch for snroing, witnessed apneas, unrefreshing sleep and EDS. 4. Spinal stenosis, lumbar region, without neurogenic claudication - ICD9: 724.02, ICD10: M48.061 Follow up with PT as recommended by spine center. Hansel Ramsey MD I spent 45 minutes in the visit, with more than 50% of the total moer-vv-tlbr time of the visit in counseling / coordination of care. 12 LEAD ELECTROCARDIOGRAM Observed: 10/30/2017 Status: F Source: [place] 3:24 PM [facility] Cardiovascular Services [address] [place] [address] 12 Lead EKG 10/28/17 0546 MR#: [id number] Acct: [id number] Name: TREVOR COLEMAN Rep #: [id number] : 1950 67 From: Henry Redmond MD Attending Dr: Hudson Villalobos DO Status: DIS AYLIN Ordering Dr: Emily Ramirez Date: 10/28/17 Location: [facility] Sex: M C Admitted: 10/27/17 Test Reason : AM EKG Blood Pressure : / mmHG Vent. Rate : 056 BPM Atrial Rate : 056 BPM P-R Int : 210 ms QRS Dur : 114 ms QT Int : 420 ms P-R-T Axes : 041 000 053 degrees QTc Int : 405 ms Sinus bradycardia with 1st degree A-V block Otherwise normal ECG When compared with ECG of 27-OCT-2017 15:04, MANUAL COMPARISON REQUIRED, DATA IS UNCONFIRMED Confirmed by HENRY REDMOND MD ([id number]), business editor SHALOM HUGHES ([id number]) on 10/30/2017 3:24:10 PM Referred By: Emily Ramirez Confirmed By:HENRY REDMODN MD 10/30/17 1524 Date Henry Redmond MD CC: Emily Ramirez; Hudson Villalobos DO; Liseth Del Valle DO Signed 12 LEAD ELECTROCARDIOGRAM Observed: 10/30/2017 Status: F Source: [place] 2:35 PM [facility] Cardiovascular Services [address] [place] [id number] 12 Lead EKG 10/27/17 1504 MR#: [id number] Acct: [id number] Name: TREVOR COLEMAN John Rep #: [id number] : 1950 67 From: Dino Marquis MD Attending Dr: Hudson Villalobos DO Status: DIS AYLIN Ordering Dr: Karol Pearson DO Date: 10/27/17 Location: [facility] Sex: M C Admitted: 10/27/17 Test Reason : Blood Pressure : / mmHG Vent. Rate : 074 BPM Atrial Rate : 074 BPM P-R Int : 188 ms QRS Dur : 112 ms QT Int : 394 ms P-R-T Axes : 042 001 038 degrees QTc Int : 437 ms Normal sinus rhythm Incomplete right bundle branch block Abnormal ECG Confirmed by DINO MARQUIS MD ([id number]), SHALOM Pete ([id number]) on 10/30/2017 2:35:28 PM Referred By: Emily Ramirez Confirmed By:DINO MARQUIS MD 10/30/17 1435 Date Dino Marquis MD CC: Emily Ramirez; Hudson Villalobos DO; Liseth Del Valle DO; Karol Pearson DO Signed 12 LEAD ELECTROCARDIOGRAM Observed: 10/30/2017 Status: F Source: [place] 2:12 PM [facility] Cardiovascular Services [address] [place] [address] 12 Lead EKG 10/29/17 1033 MR#: [id number] Acct: [id number] Name: TREVOR COLEMAN Rep #: [id number] : 1950 67 From: Dino Marquis MD Attending Dr: Status: DEP ER Ordering Dr: Karol Pearson DO Date: 10/29/17 Location: ED Sex: M C Admitted: Test Reason : DIZZINESS Blood Pressure : / mmHG Vent. Rate : 065 BPM Atrial Rate : 065 BPM P-R Int : 184 ms QRS Dur : 114 ms QT Int : 396 ms P-R-T Axes : 039 -11 041 degrees QTc Int : 411 ms Normal sinus rhythm Incomplete right bundle branch block Abnormal ECG Confirmed by DINO MARQUIS MD ([id number]), business editor SHALOM HUGHES ([id number]) on 10/30/2017 2:12:35 PM Referred By: MIGUEL Confirmed By:DINO MARQUIS MD 10/30/17 1412 Date Dino Marquis MD CC: Liseth Del Valle DO; Karol Pearson DO Signed DISCHARGE INSTRUCTION Observed: 10/29/2017 Status: F Source: [place] 11:54 AM [facility] Medical Records Department [address] [place] [address] Discharge Instruction 10/29/17 1153 MR#: [id number] Acct: [id number] Name: TREVOR COLEMAN John Rep #: [id number] : 1950 67 From: Karol Pearson DO PCP: Liseth Del Valle DO Status: REG ER ED Disposition - Plan for ED Patient: Chief Complaint: Dizziness Instructions: ED Dizziness UKO, ED HTN Established Referrals: Liseth Del Valle DO [Primary Care Provider] - 3-5 Days Additional Instructions: See Dr. Hannah in 5-7 days or as instructed What to do if you have Problems For any increased pain, shortness of breath, bleeding, nausea or vomiting, chest pain, or any unexpected problems, contact your Primary Care Provider. Call [facility] ([phone]) or report to the closest Emergency Room. Call 911 if necessary. 10/29/17 1154 <Electronically signed by Karol Pearson DO> Date Sandraus Bobmiranda BROOKS Cosigner Signature (If Indicated): Date CC: Liseth Del Valle DO CONSULTATION Observed: 10/29/2017 Status: F Source: [place] 11:02 AM [facility] Medical Records Department [address] [place] [address] Consultation 10/28/17 1000 MR#: [id number] Acct: [id number] Name: TREVOR COLEMAN Rep #: [id number] : 1950 67 From: Bruno Hannah MD PCP: Liseth Del Valle DO Status: DIS AYLIN Y Location: [place] [address] Reason for Consult Date of Consultation: 10/28/17 Reason for Consultation: transient confusion History of Present Illness: The patient is a 67 year old M right handed after a round of golf yesterday after finished lunch. noted abnormal sensation of speech associated with nausea and diaphoresis. noted he was pale in the ED. feeling well previously, cva in 06/27 associated with right sided paresthiesias.no recent illness or med changes. Her admission H AND P: The patient is a 67 y/o M w/ PMHx: HTN, HLD, Hypothyroidism, Obesity, Prior CVA (MRI brain 07/03/16 with focal subcortical acute infarcts within the high right frontal border zone region and the left posterior border zone region abutting the central sulcus likely within the central gyrus) who presents to the [facility] ED on 10/27/17 with history of golfing through the day, sitting down to lunch at 14:30 with onset at that time of sensation of echoing of his voice in his head when he spoke with following onset right upper extremity numbness, diaphoresis and nausea which last approximately 25 minutes and resolved upon ED presentation. is present in the emergency room and noted that with onset of these findings he was also very pale. She notes that he appears to currently be at his baseline. The emergency room workup included T 98.2, heart rate 76, BP 151/80, respiratory rate 18, 96% on room air, unremarkable CBC, unremarkable coags, BMP with chloride 109, BUN/creatinine 25 1.22, glucose 139, last hemoglobin A1c noted 07/03/16 5.7%, troponin less than 0.015, EKG with no acute findings, ET head with stable chronic ischemic and atrophic changes with no acute findings on chest x-ray with no acute findings, CTA head with normal [place] without any demonstrated aneurysm or significant stenosis, CT of the neck with no demonstrated aneurysm or significant stenosis. Neurology was consulted per the emergency room and had requested CTA head and neck to be obtained. Past Medical History Past Medical History (Chronic Problems): Chronic Problems HLD (hyperlipidemia) (Chronic) Hypothyroidism (Chronic) CVA (cerebral vascular accident) (Chronic) MRI brain 07/03/16 with focal subcortical acute infarcts within the high right frontal border zone region and the left posterior border zone region abutting the central sulcus likely within the central gyrus. HTN (hypertension) (Chronic) Allergies Sulfa (Sulfonamide Antibiotics) Allergy (Verified 10/27/17 14:53) PT CAN'T REMEMBER Home Medications: Ambulatory Orders Medication Instructions Recorded Triamcinolone 0.1% Ointment 1 applic TOPICAL DAILY 07/03/16 Surgical History: - - Arthroscopic knee surgery, left eye muscle surgery, Lasix eye surgery, bilateral carpal tunnel surgery, tonsillectomy. Psychiatric History: No pertinent psych hx Lives: Spouse/ Significant Other Smoking Status: Never smoker Tobacco Use: Non-smoker Alcohol: None Drugs: None - *Family History Maternal History Items: Cancer, Stroke Paternal History Items: Heart Disease Sibling History Items: Heart Disease - Brother of SD Review of Systems Constitutional: Denies: Chills, Fever, Weight Change HEENT: Denies: Head Aches, Sinus Congestion, Sinus Drainage Cardiovascular: Denies: Chest Pain, Palpitations Respiratory: Denies: Cough, Shortness of breath at rest, Sputum production Gastrointestinal: Denies: Abdominal Pain, Nausea, Vomiting Genitourinary: Denies: Dysuria Musculoskeletal: Denies: Joint Pain, Joint Tenderness Skin: Denies: Rash, Wounds Neurological: Denies: Numbness, Tingling, Focal weakness Psychiatric: Denies: Anxiety, Depression, Homicidal Ideations, Suicidal Ideations Hematologic/ Lymphatic: Denies: Easy Bruising, Easy Bleeding - Physical Exam General: Alert, Oriented x3, Cooperative HEENT: Atraumatic, PERRLA, EOMI, Normocephalic Neck: Supple, No JVD, Negative Carotid Bruits Lungs: Clear to auscultation, Normal air movement Cardiovascular: Regular rate, No murmurs Abdomen: Bowel Sounds Present, Soft, Non Tender Extremities: No edema, Capillary Refill Less than 3 Seconds Skin: No rashes, No breakdown Musculoskeletal: No Tenderness to Palpation of Joints or Extremities Neurological: Cranial nerves II-XII grossly intact Psych/Mental Status: Normal Affect, Appropriate Vital Signs Temp Pulse Resp BP Pulse Ox 36.7 C 47 L 16 140/82 H 97 10/28/17 06:11 10/28/17 06:57 10/28/17 06:11 10/28/17 06:11 10/28/17 07:24 Oxygen Delivery Method Room Air Weight: 101.3 kg Body Mass Index (BMI) 30.2 Intake and Output for Last 24 Hours Intake Total 1284 / 1284 812 / 812 Balance 1284 / 1284 812 / 812 Laboratory Tests Past 24 Hrs WBC RBC Hgb Hct MCV MCH MCHC RDW RDW Differential Plt Count MPV Immature Gran % (Auto) WBC 6.5 RBC 4.43 L Hgb 14.2 Hct 41.8 Assessment/Plan All Active Problems TIA (transient ischemic attack) (Acute) suspect presyncope due to presence of nausea and diaphoresis. reports recent brbpr. await mri consider stool hemocults asa only consider further eval of bradycardia 10/29/17 1102 <Electronically signed by Bruno Hannah MD> Date Bruno Hannah MD Cosigner Signature (if applicable): Date CC: Cecilio Currie MD; Emily Ramirez; Liseth Del Valle DO Signed CBC W/DIFF, AUTOMATED Collected: 10/29/2017 Status: F Source: [place] 10:30 AM [facility] REPOSITORY TYPE CODE TESTS RESULT OUT OF RANGE REFERENCE UNITS LAB L100.1000 4.4-11.0 K/mm3 Normal WBC 7.2 LAB L100.1200 4.6-6.2 M/mm3 Normal RBC 4.84 LAB L100.1300 13.0-16.5 g/dl Normal HGB 15.4 LAB L100.1400 40-54 % Normal HCT 45.9 LAB L100.1500 80-94 fL High MCV 94.8 LAB L100.1600 27.0-32.0 pg Normal MCH 31.8 LAB L100.1700 32-36 g/gl Normal MCHC 33.6 LAB L100.1810 11.6-14.6 % Normal RDW CV 12.4 LAB L100.1820 35.1-43.9 fl Normal RDW SD 42.9 LAB L100.1900 150-450 K/mm3 Low PLT 148 LAB L100.2000 6.2-12.0 fl Normal MPV 10.5 LAB L100.2100 47-70 % High NEUT% 70.5 LAB L100.2200 19-41 % Normal LY% 21.5 LAB L100.2300 0-10 % Normal MONO% 6.7 LAB L100.2400 0-5 % Normal EO% 1.1 LAB L100.2500 0-1 % Normal BASO% 0.1 LAB L100.2550 0.0-0.9 % Normal IM GRAN % 0.100 Result Comment: IG% - Immature Granulocytes (promyelocytes, myelocytes and metamyelocytes) > 1% indicates that a LEFT SHIFT is Present. LAB L100.2620 2.0-7.7 X10 3/uL Normal Absolute Neut 5.0 LAB L100.2720 0.83-4.51 X10 3/ul Normal Absolute Lymph 1.54 Performed By: #### L100.0100 #### [facility] [address] [place], [place], [address] BASIC METABOLIC Collected: 10/29/2017 Status: F Source: [place] PROFILE (BMP) 10:30 AM [facility] REPOSITORY TYPE CODE TESTS RESULT OUT OF RANGE REFERENCE UNITS LAB L501.0100 74-106 mg/dL High GLU 118 Result Comment: Fasting Glucose result from 100 to 125 mg/dL suggests IMPAIRED HOMEOSTASIS per A.D.A. criteria. Please note revised GLUCOSE reference range effective 2017. LAB L501.1000 7-18 mg/dL High BUN 22 LAB L501.1100 0.70-1.30 mg/dL Normal CREAT,SERUM 1.22 Result Comment: The validity of the calculated GFR AND GFRAA in patients over 70 years has not been determined. Clinical correlation is essential. LAB L501.1110 >60 mL/min Normal EST GFR 63 Result Comment: Non- GFR Calc LAB L501.1115 >60 mL/min Normal EST GFR - AA 76 Result Comment: GFR Calc LAB L501.1255 ml/min Normal Estimated CRCL 64.49 LAB L501.1300 10-20 RATIO Normal BUN/CRE 18.0 LAB L501.2200 8.5-10 mg/dL Normal .1 CA 9.0 LAB L501.5300 136-14 mmol/L Normal 5 NA 142 LAB L501.5600 3.5-5. mmol/L Normal 1 K 3.8 LAB L501.5900 98-107 mmol/L Normal CL 104 LAB L501.6100 21.0-3 mmol/L Normal 2.0 CO2 29.0 LAB L501.6200 5-15 Normal GAP 9 Performed By: #### L500.2500, L501.4010 #### [facility] [address] [place], [address] TROPONIN-I Collected: 10/29/2017 Status: F Source: [place] 10:30 AM [facility] REPOSITORY TYPE CODE TESTS RESULT OUT OF RANGE REFERENCE UNITS LAB L501.4010 <0.045 ng/mL Normal < 0.015 TROPONIN-I Result Comment: TROPONIN-I EXPECTED VALUES <0.045 Negative 0.045 - 0.590 Consistent with Cardiac Damage > OR = 0.600 Critical Value Not every elevated troponin is indicative of SD. These values should be used with clinical judgement in examining the patient's clinical picture for diagnosis. To establish a diagnosis of SD versus myocardial injury, there must be a demonstrated rise and/or fall in the troponin values, in addition to ischemic symptoms, EKG changes, new regional wall motion abnormality, and/or angiographical evidence. PLEASE NOTE: REFERENCE RANGES EDITED 17 Performed By: #### L500.2500, L501.4010 #### [facility] [address] [place], [address] BRAIN/HEAD WITHOUT Observed: 10/29/2017 Status: F Source: [place] CONTRAST 10:20 AM [facility] Imaging Services [address] [place] [address] Brain/Head without Contrast MR#: [id number] Acct: [id number] Name: TREVOR COLEMAN Rep #: [id number] : 1950 M 67 From: Chinmay Velarde PCP: Liseth Del Valle DO Status: REG ER Study: Brain/Head without Contrast Date of Exam: 10/29/17 Exam# [id number] Ordering Dr: Karol Pearson DO STUDY: CT BRAIN WITHOUT CONTRAST REASON FOR EXAM: Male, 67 years old. dizziness, hx of stroke x2days ago. RADIATION DOSAGE (If Supplied By Facility): CTDIvol = ( 60.81 ) mGy, DLP = ( 1135.50 ) mGycm TECHNIQUE: Transaxial CT imaging of the brain was performed without administration of intravenous contrast material. Individualized dose optimization techniques were used for this CT. COMPARISON: October 27, 2017 FINDINGS: Normal soft tissue structures. Normal calvarium. Normal size ventricles and extra-axial spaces for the patient's age. Normal white matter tracts of the cerebral hemispheres. Normal basal ganglia and thalami. Normal brainstem. Chronic right cerebellar lacunar infarct is noted. There is no intracranial hemorrhage. There are no findings of an acute ischemic infarction. Normal visualized paranasal sinuses. CT/Brain/Head without Contrast IMPRESSION: No acute intracranial abnormality. Chronic right cerebellar lacunar infarct. Electronically Signed: Chinmay Velarde MD at 11:24 EDT Tel , Service support , CC: Liseth Del Valle DO; Karol Pearson DO Sole Layer: Signed DISCHARGE SUMMARY Observed: 10/28/2017 Status: F Source: [place] 5:09 PM [facility] Medical Records Department [address] [place] [address] Discharge Summary 10/28/17 1701 MR#: [id number] Acct: [id number] Name: TREVOR COLEMAN Rep #: [id number] : 1950 67 From: Hudson Villalobos DO PCP: Liseth Del Valle DO Status: ADM AYLIN Y Location: [place] [address] Discharge Date and Diagnosis - Problem List Patient Problems: Active and Suspected Problems CVA (cerebral vascular accident) (Acute) MRI brain 07/03/16 with focal subcortical acute infarcts within the high right frontal border zone region and the left posterior border zone region abutting the central sulcus likely within the central gyrus. Date of Admission: 10/27/17 Date of Discharge: 10/28/17 - Secondary Discharge Diagnosis Chronic Problems HLD (hyperlipidemia) (Chronic) Hypothyroidism (Chronic) CVA (cerebral vascular accident) (Chronic) MRI brain 07/03/16 with focal subcortical acute infarcts within the high right frontal border zone region and the left posterior border zone region abutting the central sulcus likely within the central gyrus. HTN (hypertension) (Chronic) Hospital Course and Treatment Imaging Results: Clinical Impression(s) from Imaging Studies Brain CT 10/27/17 15:08 IMPRESSION: Stable chronic ischemic and atrophic changes. No acute intracranial abnormality. Electronically Signed: Silvano Laurie, at 16:09 EDT Tel , Service support , Chest X-Ray 10/27/17 15:08 IMPRESSION: No acute thoracic pathology. Electronically Signed: Silvano Sullivan, at 16:44 EDT Tel , Service support , Head CTA 10/27/17 15:30 IMPRESSION: Normal [place] without a demonstrated aneurysm or hemodynamically significant stenosis. Electronically Signed: Parker Mancuso MD at 16:41 EDT , Service support , Neck CTA 10/27/17 15:30 IMPRESSION: No demonstrated aneurysm or significant stenosis. Electronically Signed: Rosmery Lira MD at 17:36 EDT Tel , Service support , Brain MRI 10/28/17 07:31 IMPRESSION: Acute left parietal lacunar infarct. Chronic right cerebellar lacunar infarcts. N.B. : The above information has been verbally conveyed by Chinmay Velarde MD to Jeni Bergeron [phone], on 10/28/2017 14:32:52 (ET). Electronically Signed: Chinmay Velarde MD at 14:00 EDT Tel , Service support , Bruno Hannah Operations: None Procedures: 2-D Echocardiogram Summary of Care Provided: The patient is a 67 year old M presents with RUE parerethises. MRI showed an acute left parietal lacunar infarct. DW Dr. Hannah who advised DAPT (ASA and Plavix) + High-intensity statin. He did advise an event monitor, though he feels the patient's etiology maybe due to bradycardia and HTN. Pt is already established with Dr. Ramsey in [place] for neurology and states that he will follow up with him. Patient is in no acute distress and afebrile. Heart is regular rate and rhythm plus S1-S2 without murmurs gallops or rubs. Lungs are clear to auscultation bilaterally. Neurologic cranial nerves II through XII are grossly intact motor strength is 5 out of 5 in upper extremities. Finger to nose is intact. [] Discharge Diet: Low fat/ Low Cholesterol Discharge Activity: Return to Normal Activity Call your doctor if you observe: Fever of 101 or Higher, Numbness or Tingling, Shortness of breath, Dizziness, Fainting spells, - - unilateral weakness. Home Medications: Medications to take at Discharge Triamcinolone 0.1% Ointment [Kenalog] 1 applic TOPICAL DAILY 07/03/16 Amlodipine [Norvasc] 5 mg PO DAILY #90 tablet 07/05/16 Aspirin [Aspirin, Baby] 81 mg PO DAILY@0800 #90 tab.chew 07/05/16 Atorvastatin Calcium [Lipitor] 40 mg PO DAILY #90 tablet 07/05/16 Hydrocortisone 453.6 gm TOPICAL DAILY PRN PRN 10/27/17 Levothyroxine [Synthroid] 88 mcg PO DAILY 10/27/17 Levothyroxine [Synthroid] 100 mcg PO DAILY 10/27/17 Clopidogrel Bisulfate [Plavix] 75 mg PO DAILY #30 tab 10/28/17 Following Prescrptions Were Given to Patient: Clopidogrel Bisulfate [Plavix] 75 mg PO DAILY #30 tab Other Amb Orders: 30-Day Event Recorder [[facility]] Location: None Selected Primary Care Physician: Liseth Del Valle DO [Primary Care Provider] - Within 2 Weeks Please Follow Up With: Braulio When: 4-6 weeks Disposition: Home Minutes spent on discharge:: 40 Patient Condition:: Good Medical Necessity - Tobacco Use Smoking Status: Never smoker Tobacco Use: Non-smoker Meaningful Use Info Meaningful Use Diagnoses (Choose all that apply): Ischemic CVA - CVA Therapy Assessed for PT,OT and/or ST?: Yes - Ischemic Stroke Antithrombotic order at d/c?: Yes Dx of Atrial fib/flutter?: No Statins at discharge?: Yes Primary Dx Acute Ischemic CVA?: Yes IV tPA ordered during stay?: No Reason IV t-PA not ordered: Procedure not Indicated Code Visit OBSV E AND M: 10430 Observation care discharge 10/28/17 1709 <Electronically signed by Hudson Villalobos DO> Date Hudson Villalobos DO Cosigner Signature (if applicable): Date CC: Hudson Villalobos DO; Liseth Del Valle DO Signed DISCHARGE INSTRUCTION Observed: 10/28/2017 Status: F Source: [place] 5:01 PM [facility] Medical Records Department [address] [place] [address] Instructions for Home/Discharge Instructions 10/28/17 1659 MR#: [id number] Acct: [id number] Name: TREVOR COLEMAN Rep #: [id number] : 1950 67 From: Hudson Villalobos DO PCP: Liseth Del Valle DO Status: ADM AYLIN You will use the following diet at home:: Cardiac Your food should be the consistency of: Regular Your liquids should be the consistency of: Regular/Thin Discharge Activity: Return to Normal Activity Call your doctor if you observe: Fever of 101 or Higher, Numbness or Tingling, Shortness of breath, Dizziness, Fainting spells, - - unilateral weakness. Allergies/Adverse Reactions: Allergies Sulfa (Sulfonamide Antibiotics) Allergy (Verified 10/27/17 14:53) PT CAN'T REMEMBER Medications to take at Discharge Triamcinolone 0.1% Ointment [Kenalog] 1 applic TOPICAL DAILY 07/03/16 Amlodipine [Norvasc] 5 mg PO DAILY #90 tablet 07/05/16 Aspirin [Aspirin, Baby] 81 mg PO DAILY@0800 #90 tab.chew 07/05/16 Atorvastatin Calcium [Lipitor] 40 mg PO DAILY #90 tablet 07/05/16 Hydrocortisone 453.6 gm TOPICAL DAILY PRN PRN 10/27/17 Levothyroxine [Synthroid] 88 mcg PO DAILY 10/27/17 Levothyroxine [Synthroid] 100 mcg PO DAILY 10/27/17 Clopidogrel Bisulfate [Plavix] 75 mg PO DAILY #30 tab 10/28/17 The following prescriptions were given: Clopidogrel Bisulfate [Plavix] 75 mg PO DAILY #30 tab Orders to be completed after discharge: 30-Day Event Recorder [[facility]] Location: None Selected Primary Care Physician: Liseth Del Valle DO [Primary Care Provider] - Within 2 Weeks Test Results: Test results from this visit will be discussed in further detail at your follow-up appointment, if applicable. Please Follow Up With: Braulio When: 4-6 weeks Proposed Discharge Date: 10/28/17 10/28/17 1701 <Electronically signed by Hudson Villalobos DO> Date Hudson Villalobos DO CC: Cecilio Currie MD; Liseth Del Valle DO ECHOCARDIOGRAM COMPLETE Observed: 10/28/2017 Status: F Source: [place] 2:04 PM [facility] Cardiovascular Services [address] [place] [address] Echo Complete 10/28/1730 MR#: [id number] Acct: [id number] Name: TREVOR COLEMAN Rep #: [id number] : 1950 67 From: Henry Redmond MD Attending Dr: Hudson Villalobos DO Status: ADM AYLIN Ordering Dr: Emily Ramirez Date: 10/27/17 Location: [facility] Sex: M C Admitted: 10/27/17 Reason For Study: TIA/CVA Procedure This was a 2D Doppler, Color Flow transthoracic echocardiogram. Exam performed portable in patient room. Left Ventricle Normal LV size. Moderate eccentric left ventricular hypertrophy. Left ventricular systolic function is normal. The estimated ejection fraction is 60 %. Stage 1 diastolic dysfunction. No regional wall motion abnormalities noted. Right Ventricle Normal RV size. Normal systolic function. Atria The left atrium is moderately enlarged. Normal right atrium. Mitral Valve Normal mitral valve. Tricuspid Valve Normal tricuspid valve. Mild tricuspid valve insufficiency. Pulmonary artery systolic pressure is 28 mmHg. Aortic Valve Normal aortic valve. Pulmonic Valve Normal pulmonic valve. Great Vessels Normal aortic root. The pulmonary artery is normal size. Normal inferior vena cava. Pericardium/Pleural No pericardial effusion. MMode/2D Measurements AND Calculations LVIDd: 5.3 cm IVSd: 2.1 cm Ao root diam: 3.9 cm LVIDs: 3.5 cm LVPWd: 1.2 cm LA dimension: 4.5 cm RVDd: 3.7 cm FS: 34.4 % LAV(MOD-bp): 94.4 ml LA A4 area: 25.1 cm2 RA A4 area: 19.2 cm2 LAV(MOD-bp) Indexed: 42.3 ml/m2 LAV(MOD-sp2): 97.4 ml LAV(MOD-sp4): 88.3 ml Doppler Measurements AND Calculations MV E max ananda: 65.5 cm/sec Lat Peak E' Ananda: 7.7 cm/sec Med Peak E' Ananda: 6.5 cm/sec MV A max ananda: 72.6 cm/sec E/E' lat: 8.5 E/E' med: 10.1 MV E/A: 0.90 Ao V2 max: 151.1 cm/sec LV V1 max: 136.4 cm/sec PA V2 max: 100.8 cm/sec Ao max P.1 mmHg LV V1 max P.5 mmHg TR max ananda: 249.1 cm/sec TR max P.8 mmHg Interpretation Summary Normal LV size. Left ventricular systolic function is normal. The estimated ejection fraction is 60 %. Stage 1 diastolic dysfunction. Mild tricuspid valve insufficiency. Ordering Physician: Emily Ramirez Referring Physician: Liseth Del Valle Performed By: Jesenia Sanches, QING, RVT 10/28/17 1404 Date Henry Redmond MD CC: Emily Ramirez; Hudson Villalobos DO; Liseth Del Valle DO Date Dictated: 10/28/17929 Date Transcribed: 10/28/17 1405 Sole Layer: Signed CBC W/DIFF, AUTOMATED Collected: 10/28/2017 Status: F Source: [place] 6:00 AM [facility] REPOSITORY TYPE CODE TESTS RESULT OUT OF RANGE REFERENCE UNITS LAB L100.1000 4.4-11.0 K/mm3 Normal WBC 6.5 LAB L100.1200 4.6-6.2 M/mm3 Low RBC 4.43 LAB L100.1300 13.0-16.5 g/dl Normal HGB 14.2 LAB L100.1400 40-54 % Normal HCT 41.8 LAB L100.1500 80-94 fL High MCV 94.4 LAB L100.1600 27.0-32.0 pg High MCH 32.1 LAB L100.1700 32-36 g/gl Normal MCHC 34.0 LAB L100.1810 11.6-14.6 % Normal RDW CV 12.2 LAB L100.1820 35.1-43.9 fl Normal RDW SD 41.4 LAB L100.1900 150-450 K/mm3 Normal PLT 151 LAB L100.2000 6.2-12.0 fl Normal MPV 10.7 LAB L100.2100 47-70 % Normal NEUT% 59.2 LAB L100.2200 19-41 % Normal LY% 31.1 LAB L100.2300 0-10 % Normal MONO% 7.2 LAB L100.2400 0-5 % Normal EO% 2.0 LAB L100.2500 0-1 % Normal BASO% 0.3 LAB L100.2550 0.0-0.9 % Normal IM GRAN % 0.200 Result Comment: IG% - Immature Granulocytes (promyelocytes, myelocytes and metamyelocytes) > 1% indicates that a LEFT SHIFT is Present. LAB L100.2620 2.0-7.7 X10 3/uL Normal Absolute Neut 3.9 LAB L100.2720 0.83-4.51 X10 3/ul Normal Absolute Lymph 2.03 Performed By: #### L100.0100 #### [facility] [address] [place] [address]. [place], [place], [address] BASIC METABOLIC Collected: 10/28/2017 Status: F Source: [place] PROFILE (BMP) 6:00 AM [facility] REPOSITORY TYPE CODE TESTS RESULT OUT OF RANGE REFERENCE UNITS LAB L501.0100 74-106 mg/dL Normal GLU 103 Result Comment: Fasting Glucose result from 100 to 125 mg/dL suggests IMPAIRED HOMEOSTASIS per A.D.A. criteria. Please note revised GLUCOSE reference range effective 2017. LAB L501.1000 7-18 mg/dL High BUN 19 LAB L501.1100 0.70-1.30 mg/dL Normal CREAT,SERUM 0.97 Result Comment: The validity of the calculated GFR AND GFRAA in patients over 70 years has not been determined. Clinical correlation is essential. LAB L501.1110 >60 mL/min Normal EST GFR 82 Result Comment: Non- GFR Calc LAB L501.1115 >60 mL/min Normal EST GFR - AA 99 Result Comment: GFR Calc LAB L501.1255 ml/min Normal Estimated CRCL 81.11 LAB L501.1300 10-20 RATIO Normal BUN/CRE 19.6 LAB L501.2200 8.5-10 mg/dL Low .1 CA 8.3 LAB L501.5300 136-14 mmol/L Normal 5 NA 143 LAB L501.5600 3.5-5. mmol/L Normal 1 K 4.1 LAB L501.5900 98-107 mmol/L High CL 109 LAB L501.6100 21.0-3 mmol/L Normal 2.0 CO2 25.0 LAB L501.6200 5-15 Normal GAP 9 Performed By: #### L500.2500, L500.4100 #### [facility] [address] [facility] [place], [address] LIPID PROFILE Collected: 10/28/2017 Status: F Source: [place] 6:00 AM [facility] REPOSITORY TYPE CODE TESTS RESULT OUT OF RANGE REFERENCE UNITS LAB L501.4900 200 mg/dL Normal CHOL 104 Result Comment: <200 mg/dL Desirable 200-240 mg/dL Borderline >240 mg/dL High Risk LAB L501.5000 mg/dL Normal TRIG 43 Result Comment: The drugs N-Acetylcysteine and Metamizole may falsely depress this assay. Serum Triglycerides Reference Interval Normal <150 mg/dL Borderline high 150 - 199 mg/dL High 200 - 499 mg/dL Very High > or = 500 mg/dL LAB L501.6400 mg/dL Normal HDL 51 Result Comment: The drugs N-Acetylcysteine and Metamizole may falsely depress this assay. Reference Range HDL <40 mg/dL Low HDL Cholesterol HDL >or= 60 mg/dL High HDL Cholesterol LAB L501.6500 0-130 mg/dL Normal LDL 44 LAB L501.6600 5-40 mg/dL Normal VLDL 9 Performed By: #### L500.2500, L500.4100 #### [facility] [address] [facility] [place], [address] TROPONIN-I Collected: 10/28/2017 Status: F Source: [place] 1:48 AM [facility] REPOSITORY Order Comment: 'TROP' Serial specimen #1, #2 or #3: 3 TYPE CODE TESTS RESULT OUT OF RANGE REFERENCE UNITS LAB L501.4010 <0.045 ng/mL Normal < 0.015 TROPONIN-I Result Comment: TROPONIN-I EXPECTED VALUES <0.045 Negative 0.045 - 0.590 Consistent with Cardiac Damage > OR = 0.600 Critical Value Not every elevated troponin is indicative of SD. These values should be used with clinical judgement in examining the patient's clinical picture for diagnosis. To establish a diagnosis of SD versus myocardial injury, there must be a demonstrated rise and/or fall in the troponin values, in addition to ischemic symptoms, EKG changes, new regional wall motion abnormality, and/or angiographical evidence. PLEASE NOTE: REFERENCE RANGES EDITED 17 Performed By: #### L501.4010 #### [facility] [address] [facility] [place], [address] EMERGENCY DEPARTMENT Observed: 10/28/2017 Status: F Source: [place] SUMMARY 12:09 AM [facility] Medical Records Department [address] [facility] [place] [address] Emergency Department Summary 10/27/17 1517 MR#: [id number] Acct: [id number] Name: TREVOR COLEMAN Rep #: [id number] : 1950 67 From: Karol Pearson DO PCP: Liseth Del Valle DO Status: ADM AYLIN - ER Visit Summary Date of Service: 10/27/17 Chief Complaint: [Numbness and tingling to right arm] History of Present Illness: The patient is a 67 M [presents the emergency department with symptoms that started approximately 35 minutes prior to arrival in the department. Patient states that he had just finished playing golf and was eating lunch when he started feeling like he was hearing an echo in his head when he would speak. Patient noted that his left arm was numb and tingly but did not notice any weakness. There is no paresthesias of his face or lower extremities. Patient states that he felt slightly nauseated and became diaphoretic. Patient is concerned because about a year ago he had TIAs. He denies any headache. He denies any falls or head injuries. He denies any alcohol intake. Patient states currently feels much improved and his symptoms have resolved. Patient states he has had a little bit of a cold over the last for 5 days. Patient has been taking some zinc.] Physical Examination: [HEENT-PERRLA, EOMI. Cranial nerves II through XII grossly intact. TMs clear. Mucous membranes moist. No adenopathy. Cardiovascular-regular rate and rhythm without murmur or ectopy Lungs-clear to auscultation, chest wall stable without crepitus or subcu emphysema Abdomen-normoactive bowel sounds, soft, nontender, no rebound or rigidity, no peritoneal signs. Neuro efgr-aoxwlt-gmcz and heel pizano testing within normal limits, negative Romberg, negative pronator, fundi benign. NIH stroke scale was 0. Extremities-intact 4, normal range of motion, normal pulses, atraumatic] Test Results: [EKG obtained on arrival showed a sinus rhythm with a ventricular rate of 74 bpm with no acute ST segment changes. CBC with her showing of 8.1, hemoglobin 14.8, hematocrit 43, platelets 154. Chemistries unremarkable. INR was 1.0 and PTT was 29.9. Troponin was less than 0.015. CT scan of the brain showed some chronic ischemic changes otherwise nothing acute. CTA of the head and neck showed nothing acute.] Emergency Department Course and Treatment: [Patient case was discussed with was on-call for neurology. Patient is not a TPA candidate as symptoms have resolved and his NIH stroke scale is 0. Patient case discussed with hospitalist will evaluate patient for admission] Treatment Plan: [Admit for further workup and evaluation] Disposition: [Admit] Impression: [TIA] This note was generated with [employer] dictation software. It may contain incorrect words, spelling, and punctuation that were not noted in review of the chart prior to signing ED Disposition - Plan for ED Patient: Chief Complaint: Numb/Ting Referrals: Liseth Del Valle, [Primary Care Provider] - What to do if you have Problems For any increased pain, shortness of breath, bleeding, nausea or vomiting, chest pain, or any unexpected problems, contact your Primary Care Provider. Call [facility] ([phone]) or report to the closest Emergency Room. Call 911 if necessary. 10/28/17 0009 <Electronically signed by Karol Pearson DO> Date Karol Pearson DO Cosigner Signature (If Indicated): Date CC: Liseth Del Valle DO TROPONIN-I Collected: 10/27/2017 Status: F Source: [place] 7:43 PM [facility] REPOSITORY TYPE CODE TESTS RESULT OUT OF RANGE REFERENCE UNITS LAB L501.4010 <0.045 ng/mL Normal < 0.015 TROPONIN-I Result Comment: TROPONIN-I EXPECTED VALUES <0.045 Negative 0.045 - 0.590 Consistent with Cardiac Damage > OR = 0.600 Critical Value Not every elevated troponin is indicative of SD. These values should be used with clinical judgement in examining the patient's clinical picture for diagnosis. To establish a diagnosis of SD versus myocardial injury, there must be a demonstrated rise and/or fall in the troponin values, in addition to ischemic symptoms, EKG changes, new regional wall motion abnormality, and/or angiographical evidence. PLEASE NOTE: REFERENCE RANGES EDITED 17 Performed By: #### L501.4010, L501.5200, L501.9520, L506.0400 #### [facility] [address] [place], [address] MAGNESIUM Collected: 10/27/2017 Status: F Source: [place] 7:43 PM [facility] REPOSITORY TYPE CODE TESTS RESULT OUT OF RANGE REFERENCE UNITS LAB L501.5200 1.6-2.6 mg/dL Normal MG 2.1 Performed By: #### L501.4010, L501.5200, L501.9520, L506.0400 #### [facility] [address] [place], [address] THYROID STIM HORMONE Collected: 10/27/2017 Status: F Source: [place] ([place]) 7:43 PM [facility] REPOSITORY TYPE CODE TESTS RESULT OUT OF RANGE REFERENCE UNITS LAB L501.9520 0.358-3.74 uIU/mL Low TSH 0.12 Performed By: #### L501.4010, L501.5200, L501.9520, L506.0400 #### [facility] [address] [place], [address] T4 FREE DIRECT Collected: 10/27/2017 Status: F Source: [place] 7:43 PM [facility] REPOSITORY TYPE CODE TESTS RESULT OUT OF RANGE REFERENCE UNITS LAB L506.0400 0.76-1.46 ng/dL Normal T4 FREE 1.39 DIRECT Performed By: #### L501.4010, L501.5200, L501.9520, L506.0400 #### [facility] [address] [place], [address] BRAIN WITHOUT Observed: 10/27/2017 Status: F Source: [place] CONTRAST 7:29 PM [facility] Imaging Services [address] [place] [address] Brain without Contrast MR#: [id number] Acct: [id number] Name: TREVOR COLEMAN Rep #: [id number] : 1950 M 67 From: Chinmay Velarde PCP: Liseth Del Valle DO Status: ADM AYLIN Study: Brain without Contrast Date of Exam: 10/28/17 Exam# [id number] Ordering Dr: Emily Ramirez STUDY: MRI BRAIN WITHOUT CONTRAST REASON FOR EXAM: Male, 67 years old. cva -- sudden onset dizziness, rt side numbness, hx of cva. TECHNIQUE: Standardized multiplanar fat and water weighted pulse sequences were obtained. COMPARISON: None. FINDINGS: Normal size of the ventricles and extra-axial spaces for the patient's age. There are a limited number of small white matter hyperintensities, distributed throughout the deep white matter tracts of the cerebral hemispheres, consistent with mild chronic white matter ischemic changes. There is a 5 mm focus of restricted diffusion on the left parietal region (diffusion image #18 series 4) there is a drop of signal on ADC map, consistent with acute infarction. Normal bilateral basal ganglia. Normal thalami. There is no extra-axial fluid accumulation. Normal flow voids within the major intracranial circulation suggesting patency by spin echo criteria. Normal sella turcica, pituitary gland, infundibular stalk, optic chiasm and hypothalamus. Normal tectal plate and pineal gland. Normal midbrain, zhou and medulla. Right cerebellar focal T2 hyperintensities, chronic lacunar infarcts are noted MRI/Brain without Contrast IMPRESSION: Acute left parietal lacunar infarct. Chronic right cerebellar lacunar infarcts. N.B. : The above information has been verbally conveyed by Chinmay Velarde MD to [place] [phone], on 10/28/2017 14:32:52 (ET). Electronically Signed: Chinmay Velarde MD at 14:00 EDT Tel , Service support , CC: Emily Ramirez; Liseth Del Valle DO Sole Layer: Signed HISTORY AND PHYSICAL Observed: 10/27/2017 Status: F Source: [place] EXAM 7:21 PM [facility] Medical Records Department [address] [place] [address] History and Physical 10/27/17 1909 MR#: [id number] Acct: [id number] Name: TREVOR COLEMAN Rep #: [id number] : 1950 67 From: Emily Ramirez PCP: Liseth Del Valle DO Status: ADM AYLIN Y Location: [place] [address] Problem List (1) TIA (transient ischemic attack) Status: Acute Qualifiers: Transient cerebral ischemia type: unspecified Qualified Code(s): G45.9 - Transient cerebral ischemic attack, unspecified (2) HLD (hyperlipidemia) Status: Chronic Qualifiers: Hyperlipidemia type: pure hypercholesterolemia Qualified Code(s): E78.00 - Pure hypercholesterolemia, unspecified; E78.0 - Pure hypercholesterolemia (3) Hypothyroidism Status: Chronic Qualifiers: Hypothyroidism type: acquired Qualified Code(s): E03.9 - Hypothyroidism, unspecified (4) CVA (cerebral vascular accident) Status: Chronic Qualifiers: Laterality of affected vessel: unspecified Comment: MRI brain 07/03/16 with focal subcortical acute infarcts within the high right frontal border zone region and the left posterior border zone region abutting the central sulcus likely within the central gyrus. (5) HTN (hypertension) Status: Chronic Qualifiers: Hypertension type: essential hypertension Qualified Code(s): I10 - Essential (primary) hypertension History of Present Illness Date of Admission: 10/27/17 Chief Complaint: RUE paresthesias The patient is a 67 y/o M w/ PMHx: HTN, HLD, Hypothyroidism, Obesity, Prior CVA (MRI brain 07/03/16 with focal subcortical acute infarcts within the high right frontal border zone region and the left posterior border zone region abutting the central sulcus likely within the central gyrus) who presents to the [facility] ED on 10/27/17 with history of golfing through the day, sitting down to lunch at 14:30 with onset at that time of sensation of echoing of his voice in his head when he spoke with following onset right upper extremity numbness, diaphoresis and nausea which last approximately 25 minutes and resolved upon ED presentation. is present in the emergency room and noted that with onset of these findings he was also very pale. She notes that he appears to currently be at his baseline. The emergency room workup included T 98.2, heart rate 76, BP 151/80, respiratory rate 18, 96% on room air, unremarkable CBC, unremarkable coags, BMP with chloride 109, BUN/creatinine 25 1.22, glucose 139, last hemoglobin A1c noted 07/03/16 5.7%, troponin less than 0.015, EKG with no acute findings, ET head with stable chronic ischemic and atrophic changes with no acute findings on chest x-ray with no acute findings, CTA head with normal [place] without any demonstrated aneurysm or significant stenosis, CT of the neck with no demonstrated aneurysm or significant stenosis. Neurology was consulted per the emergency room and had requested CTA head and neck to be obtained. Past Medical History Past Medical History (Chronic Problems): Chronic Problems HLD (hyperlipidemia) (Chronic) Hypothyroidism (Chronic) CVA (cerebral vascular accident) (Chronic) MRI brain 07/03/16 with focal subcortical acute infarcts within the high right frontal border zone region and the left posterior border zone region abutting the central sulcus likely within the central gyrus. HTN (hypertension) (Chronic) Allergies Sulfa (Sulfonamide Antibiotics) Allergy (Verified 10/27/17 14:53) PT CAN'T REMEMBER Home Medications: Ambulatory Orders Medication Instructions Recorded Levothyroxine [Synthroid] 175 mcg PO DAILY 07/03/16 Triamcinolone 0.1% Ointment 1 applic TOPICAL DAILY 07/03/16 [Kenalog] Surgical History: - - Arthroscopic knee surgery, left eye muscle surgery, Lasix eye surgery, bilateral carpal tunnel surgery, tonsillectomy. Psychiatric History: No pertinent psych hx Lives: Spouse/ Significant Other Smoking Status: Never smoker Tobacco Use: Non-smoker Alcohol: None Drugs: None - *Family History Maternal History Items: Cancer, Stroke Paternal History Items: Heart Disease Sibling History Items: Heart Disease - Brother of SD Review of Systems Constitutional: Denies: Chills, Fever, Weight Change HEENT: Denies: Head Aches, Sinus Congestion, Sinus Drainage Cardiovascular: Denies: Chest Pain, Palpitations Respiratory: Denies: Cough, Shortness of breath at rest, Sputum production Gastrointestinal: Denies: Abdominal Pain, Nausea, Vomiting Genitourinary: Denies: Dysuria Musculoskeletal: Denies: Joint Pain, Joint Tenderness Skin: Denies: Rash, Wounds Neurological: Reports: Numbness, Tingling. Denies: Focal weakness Psychiatric: Denies: Anxiety, Depression, Homicidal Ideations, Suicidal Ideations Hematologic/ Lymphatic: Denies: Easy Bruising, Easy Bleeding VTE Information - Inpt Only VTE Present on Admission: No VTE Mechan Device Prophylaxis: SCD's VTE Pharm Prophylaxis ordered?: Yes Subjective: Seated upright in ED bed, no acute distress, notes complete continued resolution of prior symptoms. Objective: Physical Examination: General: awake, alert, oriented x 3 and cooperative, seated upright in the ED bed in no apparent distress. Skin: normal color, turgor, no icterus, cyanosis. HEENT: AT/NC, EOMI, PERRLA, MMM, no carotid bruits or JVD noted. Lungs: CTA bilaterally, moderate effort, mild decrease BL bases, no rales, ronchi or wheezing. Heart: regular rate and rhythm; no gallop, rub audible. Abdomen: soft, obese, NTTP, ND, normal BS, no HSM. Extremities: no cyanosis, clubbing, or edema. Neurological: patient awake, alert, oriented x 3; cognitive function intact; pupils equally reactive to light and accomodation; cranial nerves II-XII grossly normal, moving all 4 extremities, no focal deficits, strength preserved, negative Babinski, sensation intact, FTN and HTN appropriate. Psychiatric: affect appears normal, no acute evidence of depressive or anxiety feelings. - Physical Exam Vital Signs Temp Pulse Resp BP Pulse Ox 98.2 F 71 155 H 142/86 H 94 10/27/17 14:54 10/27/17 18:33 10/27/17 18:33 10/27/17 18:33 10/27/17 18:33 Oxygen Delivery Method Room Air Weight: 236 lb 5.369 oz Body Mass Index (BMI) 32.0 Finger Stick Blood Glucose 144 Laboratory Tests Past 24 Hrs POC Glucose POC Glucose 144 H Assessment/Plan All Active Problems TIA (transient ischemic attack) (Acute) The patient is a 67 y/o M w/ PMHx: HTN, HLD, Hypothyroidism, Obesity, Prior CVA (MRI brain 07/03/16 with focal subcortical acute infarcts within the high right frontal border zone region and the left posterior border zone region abutting the central sulcus likely within the central gyrus) who presents to the [facility] ED on 10/27/17 with history of golfing through the day, sitting down to lunch at 14:30 with onset at that time of sensation of echoing of his voice in his head when he spoke with following onset right upper extremity numbness, diaphoresis and nausea which last approximately 25 minutes and resolved upon ED presentation. (1) RUE Paresthesias, Transient w/ Abnormal Echoing in his brain concerning for TIA/CVA: ED workup included T 98.2, heart rate 76, BP 151/80, respiratory rate 18, 96% on room air, unremarkable CBC, unremarkable coags, BMP with chloride 109, BUN/creatinine 25 1.22, glucose 139, last hemoglobin A1c noted 07/03/16 5.7%, troponin less than 0.015, EKG with no acute findings, ET head with stable chronic ischemic and atrophic changes with no acute findings on chest x-ray with no acute findings, CTA head with normal [place] without any demonstrated aneurysm or significant stenosis, CT of the neck with no demonstrated aneurysm or significant stenosis. Will admit to PCU, will obtain MRI Brain, request repeat ECHO as performed year prior, PT/OT/Speech/Nutrition evaluation per protocol. Will continue consult Neurology for evaluation. Given resolution of sxs, continue HTN regimenallow permissive HTN, maintain on asa and add plavix, continue statin w/ AM FLP, fall precautions. TSH and mag pending. Additionally given atypical presentation, will obtain repeat EKG in AM, cycle cardiac enzymes. (2) Hypothyroidism: Continue home synthroid regimen, TSH pending. 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 (3) Hypertension: Continue home regimen including Norvasc, PRN hydralazine. (4) Hyperlipidemia: Continue home statin regimen. AM FLP. (5) Obesity: Weight loss and lifestyle changes encouraged. (6) DVT prophylaxis: SCD, Lovenox. Code Visit OBSV E AND M: [id number] Initial observation care L3 10/27/171920 <Electronically signed by Emily Ramirez > Date Emily Ramirez Cosigner Signature: Date (if applicable) CC: Emily Ramirez; Liseth Del Valle DO Signed CTA HEAD W/WO Observed: 10/27/2017 Status: F Source: [place] CONTR[place] 3:31 PM [facility] Imaging Services [address] [place] [address] CTA Head W/WO Contrast MR#: [id number] Acct: [id number] Name: TREVOR COLEMAN Rep #: [id number] : 1950 M 67 From: Parker Mancuso MD PCP: Liseth Del Valle DO Status: REG ER Study: CTA Head W/WO Contrast Date of Exam: 10/27/17 Exam# [id number] Ordering Dr: Karol Pearson DO STUDY: CTA OF THE BRAIN REASON FOR EXAM: Male, 67 years old. Dizziness RADIATION DOSAGE (If Supplied By Facility): CTDIvol = ( 21.08 ) mGy, DLP = ( 691.93 ) mGycm TECHNIQUE: CT angiography was performed with a multi-detector CT scanner. Data acquisition was obtained from the skull base through the vertex following intravenous administration of 100 ml of Isovue-370. MIP images were reconstructed from the axial data set. Post-processing of the angiographic images was performed, with multiplanar reformation and 3D reconstruction. Individualized dose optimization techniques were used for this CT. COMPARISON: None. FINDINGS: Normal bilateral petrous carotid arteries. Normal right cavernous carotid artery with a normal supraclinoid bifurcation. Normal left cavernous carotid artery with a normal supraclinoid bifurcation. Normal right A1 segments of the anterior cerebral artery. Normal left A1 segments of the anterior cerebral artery. Normal intact anterior communicating artery (ACOM). Normal bilateral A2 segments of the anterior cerebral arteries. Normal right M1 and M2 segments of the middle cerebral arteries, with a normal M1 bifurcation. Normal left M1 and M2 segments of the middle cerebral arteries, with a normal M1 bifurcation. Normal right posterior communicating artery (PCOM). Normal left posterior communicating artery (PCOM). Normal bilateral vertebral arteries. Normal basilar artery with a normal basilar bifurcation. The visualized bilateral superior cerebellar (SCA) arteries are normal. Normal bilateral P1, P2 and visualized P3 segments of the posterior cerebral arteries. There is no demonstrated aneurysm of the [place]. There is no demonstrated abnormality of the visualized brain. CT/CTA Head W/WO Contrast IMPRESSION: Normal [place] without a demonstrated aneurysm or hemodynamically significant stenosis. Electronically Signed: Parker Mancuso MD at 16:41 EDT , Service support , CC: Liseth Del Valle DO; Karol Pearson DO Sole Layer: Signed CTA NECK W/WO Observed: 10/27/2017 Status: F Source: [place] 3:31 PM [facility] Imaging Services [address] [place] [address] CTA Neck W/WO Contrast MR#: [id number] Acct: [id number] Name: TREVOR COLEMAN Rep #: [id number] : 1950 M 67 From: Rosmery Lira MD PCP: Liseth Del Valle DO Status: REG ER Study: CTA Neck W/WO Contrast Date of Exam: 10/27/17 Exam# [id number] Ordering Dr: Karol Pearson DO STUDY: CTA NECK WITH CONTRAST REASON FOR EXAM: Male, 67 years old. Dizziness. RADIATION DOSAGE (If Supplied By Facility): CTDIvol = ( 21.08 ) mGy, DLP = ( 691.93 ) mGycm TECHNIQUE: CT angiography with multi-detector data acquisition was performed from the aortic arch to the skull base following intravenous administration of 100 ml of Isovue 370 contrast. MIP images were reconstructed from the axial data set. Post-processing of the angiographic images was performed, with multiplanar reformation and 3D reconstruction. Individualized dose optimization techniques were used for this CT. COMPARISON: CTA 07/03/2016. CT head 10/27/2017. FINDINGS: AORTIC ARCH: Normal visualized aortic arch. Normal origins of the brachiocephalic, left common carotid, and left subclavian arteries. RIGHT CAROTID ARTERIES: Normal right common carotid artery (CCA). Normal right common carotid bulb. Normal origin of the right internal carotid (ICA) artery without a hemodynamically significant stenosis. Normal visualized cervical portion of the right internal carotid artery. Normal origin of the right external carotid artery (ECA). LEFT CAROTID ARTERIES: Normal left common carotid artery (CCA). There is mild atherosclerotic plaque formation without narrowing of the left carotid bulb. Normal origin of the left internal carotid (ICA) artery without a hemodynamically significant stenosis. Normal visualized cervical portion of the left internal carotid artery. Normal origin of the left external carotid artery (ECA). VERTEBRAL ARTERIES: There is a right dominant vertebral artery. Vertebral arteries are patent bilaterally, with no dissection, stenosis, or occlusion. IMPRESSION: 1. Mild atherosclerotic plaque of the left carotid bulb. No stenosis. 2. Patent vertebral and carotid arteries with no dissection, stenosis or occlusion. Electronically Signed: Rosmery Lira MD at 17:34 EDT Tel , Service support , STUDY: CTA OF THE BRAIN REASON FOR EXAM: Male, 67 years old. Dizziness. RADIATION DOSAGE (If Supplied By Facility): CTDIvol = ( ) mGy, DLP = ( ) mGycm TECHNIQUE: CT angiography was performed with a multi-detector CT scanner. Data acquisition was obtained from the skull base through the vertex following intravenous administration of ml of . MIP images were reconstructed from the axial data set. Post-processing of the angiographic images was performed, with multiplanar reformation and 3D reconstruction. Individualized dose optimization techniques were used for this CT. COMPARISON: None. FINDINGS: Normal bilateral petrous carotid arteries. There is calcified plaque formation of the right cavernous carotid artery, without a cross-sectional luminal stenosis. Normal left cavernous carotid artery with a normal supraclinoid bifurcation. Normal right A1 segment of the anterior cerebral artery. Normal left A1 segment of the anterior cerebral artery. Normal intact anterior communicating artery (ACOM). Normal bilateral A2 segments of the anterior cerebral arteries. Normal right M1 and M2 segments of the middle cerebral arteries, with a normal M1 bifurcation. Normal left M1 and M2 segments of the middle cerebral arteries, with a normal M1 bifurcation. There is non-visualization of the right posterior communicating artery (PCOM). Normal left posterior communicating artery (PCOM). Dominant right vertebral artery. Left vertebral artery terminates in the posterior inferior cerebellar artery. Normal basilar artery with a normal basilar bifurcation. The visualized bilateral superior cerebellar (SCA) arteries are normal. Normal bilateral P1, P2 and visualized P3 segments of the posterior cerebral arteries. There is no demonstrated aneurysm of the [place]. CT/CTA Neck W/WO Contrast IMPRESSION: No demonstrated aneurysm or significant stenosis. Electronically Signed: Rosmery Lira MD at 17:36 EDT Tel , Service support , CC: Liseth Del Valle DO; Karol Pearson DO Sole Layer: Signed BRAIN/HEAD WITHOUT Observed: 10/27/2017 Status: F Source: [place] CONTR[place] 3:10 PM [facility] Imaging Services [address] [place] [address] Brain/Head without Contrast MR#: [id number] Acct: [id number] Name: TREVOR COLEMAN John Rep #: [id number] : 1950 M 67 From: Silvano Sullivan MD PCP: Liseth Del Valle DO Status: REG ER Study: Brain/Head without Contrast Date of Exam: 10/27/17 Exam# [id number] Ordering Dr: Karol Pearson DO STUDY: CT BRAIN WITHOUT CONTRAST REASON FOR EXAM: Male, 67 years old. Dizziness. RADIATION DOSAGE (If Supplied By Facility): CTDIvol = ( 44.99 ) mGy, DLP = ( 812.98 ) mGycm TECHNIQUE: Transaxial CT imaging of the brain was performed without administration of intravenous contrast material. Individualized dose optimization techniques were used for this CT. COMPARISON: 07/03/2016 FINDINGS: There is no acute bleed or infarct. There are stable chronic ischemic and atrophic changes. The ventricles are normal in configuration. There is no hydrocephalus. The visualized paranasal sinuses are clear. The mastoid air cells are well aerated. There is no skull fracture. CT/Brain/Head without Contrast IMPRESSION: Stable chronic ischemic and atrophic changes. No acute intracranial abnormality. Electronically Signed: Silvano Perazanicole, at 16:09 EDT Tel , Service support , CC: Liseth Del Valle DO; Karol Pearson DO Sole Layer: Signed CHEST 1 VIEW Observed: 10/27/2017 Status: F Source: [place] 3:10 PM [facility] Imaging Services [address] [place] [address] Chest 1 View MR#: [id number] Acct: [id number] Name: TREVOR COLEMAN Rep #: [id number] : 1950 M 67 From: Silvano Sullivan MD PCP: Liseth Del Valle DO Status: REG ER Study: Chest 1 View Date of Exam: 10/27/17 Exam# [id number] Ordering Dr: Karol Pearson DO STUDY: X-RAY CHEST REASON FOR EXAM: Male, 67 years old. Numbness TECHNIQUE: Frontal view of the chest COMPARISON: None. FINDINGS: The lungs are clear. There are no pleural effusions. There is no pneumothorax. The heart is normal in size. The visualized osseous structures are within normal limits. RAD/Chest 1 View IMPRESSION: No acute thoracic pathology. Electronically Signed: Silvano Sullivan, at 16:44 EDT Tel , Service support , CC: Liseth Del Valle DO; Karol Pearson DO Sole Layer: Signed BEDSIDE GLUCOSE Collected: 10/27/2017 Status: F Source: [place] 3:04 PM [facility] REPOS[facility]ORY TYPE CODE TESTS RESULT OUT OF REFERENCE UNITS RANGE LAB L501.080 70-110 mg/dL High BEDSIDE GLU 144 Result Comment: MANAGEMENT OF PATIENT CARE PER NURSING PROTOCOL Performed By: #### L501.080 #### [facility] Point of Care [address] [place] [address] CBC W/DIFF, AUTOMATED Collected: 10/27/2017 Status: F Source: [place] 3:01 PM [facility] REPOS[facility] TYPE CODE TESTS RESULT OUT OF RANGE REFERENCE UNITS LAB L100.1000 4.4-11.0 K/mm3 Normal WBC 8.1 LAB L100.1200 4.6-6.2 M/mm3 Low RBC 4.56 LAB L100.1300 13.0-16.5 g/dl Normal HGB 14.8 LAB L100.1400 40-54 % Normal HCT 42.8 LAB L100.1500 80-94 fL Normal MCV 93.9 LAB L100.1600 27.0-32.0 pg High MCH 32.5 LAB L100.1700 32-36 g/gl Normal MCHC 34.6 LAB L100.1810 11.6-14.6 % Normal RDW CV 12.1 LAB L100.1820 35.1-43.9 fl Normal RDW SD 41.1 LAB L100.1900 150-450 K/mm3 Normal PLT 154 LAB L100.2000 6.2-12.0 fl Normal MPV 11.1 LAB L100.2100 47-70 % High NEUT% 70.4 LAB L100.2200 19-41 % Normal LY% 23.3 LAB L100.2300 0-10 % Normal MONO% 5.7 LAB L100.2400 0-5 % Normal EO% 0.2 LAB L100.2500 0-1 % Normal BASO% 0.2 LAB L100.2550 0.0-0.9 % Normal IM GRAN % 0.200 Result Comment: IG% - Immature Granulocytes (promyelocytes, myelocytes and metamyelocytes) > 1% indicates that a LEFT SHIFT is Present. LAB L100.2620 2.0-7.7 X10 3/uL Normal Absolute Neut 5.7 LAB L100.2720 0.83-4.51 X10 3/ul Normal Absolute Lymph 1.89 Performed By: #### L100.0100 #### [facility] [address] [place], [address] BASIC METABOLIC Collected: 10/27/2017 Status: F Source: [place] PRO[place] (BMP) 3:01 PM [facility] REPOS[facility]ORY TYPE CODE TESTS RESULT OUT OF RANGE REFERENCE UNITS LAB L501.0100 74-106 mg/dL High GLU 139 Result Comment: Fasting Glucose result greater than or equal to 126 mg/dL suggests DIABETES MELLITUS per A.D.A. criteria. Please note revised GLUCOSE reference range effective 2017. LAB L501.1000 7-18 mg/dL High BUN 25 LAB L501.1100 0.70-1.30 mg/dL Normal CREAT,SERUM 1.22 Result Comment: The validity of the calculated GFR AND GFRAA in patients over 70 years has not been determined. Clinical correlation is essential. LAB L501.1110 >60 mL/min Normal EST GFR 63 Result Comment: Non- GFR Calc LAB L501.1115 >60 mL/min Normal EST GFR - AA 76 Result Comment: GFR Calc LAB L501.1255 ml/min Normal Estimated CRCL 64.49 LAB L501.1300 10-20 RATIO High BUN/CRE 20.5 LAB L501.2200 8.5-10 mg/dL Normal .1 CA 8.5 LAB L501.5300 136-14 mmol/L Normal 5 NA 142 LAB L501.5600 3.5-5. mmol/L Normal 1 K 4.1 LAB L501.5900 98-107 mmol/L High CL 109 LAB L501.6100 21.0-3 mmol/L Normal 2.0 CO2 24.0 LAB L501.6200 5-15 Normal GAP 9 Performed By: #### L500.2500, L501.4010 #### [facility] [address] [place], [place], [address] TROPONIN-I Collected: 10/27/2017 Status: F Source: [place] 3:01 PM [facility] REPOSITORY TYPE CODE TESTS RESULT OUT OF RANGE REFERENCE UNITS LAB L501.4010 <0.045 ng/mL Normal < 0.015 TROPONIN-I Result Comment: TROPONIN-I EXPECTED VALUES <0.045 Negative 0.045 - 0.590 Consistent with Cardiac Damage > OR = 0.600 Critical Value Not every elevated troponin is indicative of SD. These values should be used with clinical judgement in examining the patient's clinical picture for diagnosis. To establish a diagnosis of SD versus myocardial injury, there must be a demonstrated rise and/or fall in the troponin values, in addition to ischemic symptoms, EKG changes, new regional wall motion abnormality, and/or angiographical evidence. PLEASE NOTE: REFERENCE RANGES EDITED 17 Performed By: #### L500.2500, L501.4010 #### [facility] [address] [place], [address] PROTHROMBIN TIME W/INR Collected: 10/27/2017 Status: F Source: [place] 3:01 PM [facility] REPOSITORY TYPE CODE TESTS RESULT OUT OF RANGE REFERENCE UNITS LAB L300.4150 11.7-14.9 SECONDS Normal PROTIME 13.5 LAB L300.4200 Normal INR 1.0 Performed By: #### L300.3900, L300.4310 #### [facility] [address] [place], [address] PARTIAL THROMBOPLAST Collected: 10/27/2017 Status: F Source: [place] TIME 3:01 PM [facility] REPOSITORY TYPE CODE TESTS RESULT OUT OF RANGE REFERENCE UNITS LAB L300.4310 24.1-36.2 Seconds Normal PTT 29.9 Performed By: #### L300.3900, L300.4310 #### [facility] [address] [place], [address] PROGRESS Observed: 08/07/2017 Status: COMPLETED Source: [place] 10:37 AM [facility] REPOSITORY HNO ID: [id number] Author: Jersey Olson ([facility]) Tina Service: (none) Author Type: Physician Fisher Dip Net Type: Progress Notes Filed: 08/07/2017 11:25 AM Note Text: Jersey Wilder PA-C [facility] [address] [address] 08/07/2017 ASSESSMENT AND PLAN: Assessment : Encounter Diagnosis ICD-10-CM 1. Chronic right-sided low back pain without sciatica M54.5 XR LUMBAR MOTION 4V AP/LAT/ FLEX/EXT G89.29 CONSULT TO PHYSICAL THERAPY Discussion: Mr. Coleman is a pleasant 67-year-old gentleman here today for evaluation of right sided PSIS pain without radiation. He has a new MRI scan of the lumbar spine but no x-rays. 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 His PT helped quite a bit to reduce his symptoms while he was there but his home exercise program so far has not continued his progress. His exam is benign for neurologic deficit today. Reflexes, strength, and sensation are all intact. He does have pain on palpation over the right PSIS and reproduction of similar pain with leaning toward his left side. I will go ahead and obtain a series of plane lumbar radiographs for him and have him return to PT for more specific recommendations on a home exercise program. His MRI showed mild impingement on the right at S1 but his symptoms really do not correlate with this today. The other finding on the MRI is moderately severe facet arthrosis throughout the lumbar region. There is no bone marrow abnormality identified on the report for the scan. Plan : DIAGNOSTIC TESTING: -X-ray views will be obtained to better evaluate bony structures. -Dynamic plain radiographs of the Lumbar spine are ordered. REFERAL FOR SERVICES: -Physical therapy will be instituted. MEDICATIONS: -He was instructed to go forward with occasional use of [id number] anti-inflammatories as needed for his symptoms ACTIVITY RECOMMENDATIONS: -The patient is encouraged to avoid bed rest and maintain normal activity. -The patient is encouraged to exercise regularly as tolerated. FOLLOW-UP: -The patient is instructed to return in 3 months for follow-up. This document has been created with the use of voice recognition technology. It may contain inaccuracies: (e.g. misspellings, inaccurate syntax or word sense) that have escaped review. Time spent: 45 minutes with greater than 50% in face to face consultation with the patient. cc: Liseth Del Valle DO [address] [place] [id number] Results of consultation to be transmitted via electronic medical record for those providers who practice within [facility] or with access to [facility] via [facility] Connect, or via letter. Trevor Coleman is a 67 year old male who was seen today at the kind request of Dr. Hansel Ramsey. A copy of this office note is being sent to the requesting physician through via electronic medical record. CHIEF COMPLAINT: 100% low Back pain HPI: His back pain is at 3/10 and is intermittent. The back pain is located in lower back and is described as aching and stabbing. The symptoms are exacerbated by walking and improved by sitting. He states that these symptoms began 2 years ago and are not related to any specific injury or event. 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 This was completed 3 months ago. The therapy provided a small amount of relief. Spinal Injections: He has not gotten prior spinal injections. Other: None Current Outpatient Prescriptions: methylPREDNISolone (MEDROL, NAM,) 4 mg Dose-Pack Take as directed on package. Disp: 1 Package Rfl: 0 amLODIPine (NORVASC) 5 mg tablet Take 1 tablet by mouth once daily. (Patient taking differently: Take 10 mg by mouth once daily. ) Disp: 90 tablet Rfl: 3 atorvastatin (LIPITOR) 40 mg tablet Take 1 tablet by mouth once daily. Disp: 90 tablet Rfl: 3 aspirin, enteric coated (ASPIRIN, ENTERIC COATED) 81 mg EC tablet Take 81 mg by mouth once daily. Disp: Rfl: levothyroxine (LEVOXYL) 175 mcg tablet Take 1 tablet by mouth once daily. Take on empty stomach. For thyroid. Disp: 90 tablet Rfl: 4 triamcinolone acetonide (KENALOG) 0.1 % cream Apply to affected area twice daily. Disp: Rfl: hydrocortisone 2.5 % ointment Apply to affected area twice daily. Disp: Rfl: Cholecalciferol, Vitamin D3, (VITAMIN D-3) 2,000 unit tab Take 1 tablet by mouth once daily. Disp: 360 tablet Rfl: 1 fexofenadine-pseudoephedrine (RAHEL-D) 60-120 mg per tablet Take 1 tablet by mouth every 12 hours as needed (sinus congestion/cold symptoms). (Patient not taking: Reported on 07/09/2017 ) Disp: 30 tablet Rfl: 11 No current facility-administered medications for this visit. Allergies: Adhesive; Sulfa (Sulfonamide Antibiotics); Tapazole [Methimazole] PAST MEDICAL HISTORY Diagnosis Date - Hypertension - Stroke (HCC) PAST SURGICAL HISTORY Procedure Laterality Date - PAST SURGICAL HISTORY OF 1959 t AND a - PAST SURGICAL HISTORY OF 2007 carpal tunnel bilat. - PAST SURGICAL HISTORY OF [address] Isaacs Social History Marital status: Spouse name: Years of education: Number of children: Social History Main Topics Smoking status: Never Smoker Smokeless tobacco: Never Used Alcohol use: Yes Comment: rare Drug use: No Sexual activity: Yes Partners with: Female FAMILY HISTORY Problem Relation Age of Onset - None Mother - Heart Father BYPASS REVIEW OF SYSTEMS: Constitutional: (-) Fever (-) Night Sweats (+) Weight Gain (-) Weight Loss (-) Fatigue Cardiovascular: (-) Chest Pain (-) Palpitations (-) Lightheadedness (-) Swelling of Ankles (-) Hx Heart Surgery Respiratory: (-) Shortness of Breath (-) Cough (-) Wheezing (+) Snoring Gastrointestinal: (-) Incontinence (-) Abdominal Pain (-) Diarrhea (-) Constipation (-) Nausea/Vomiting (-) Heart Burn Endocrine: (+) Thyroid Disorder (-) Diabetes Hematologic: (-) Prolonged Bleeding (-) Easy Bruising Genitourinary: (-) Incontinence (-) Frequency (-) Urinary Urgency Skin: (-) Rashes (-) Itching (-) Other Lesions Neurologic: (-) Headache (-) Double Vision (-) Confusion (-) Paralysis (-) Vertigo (-) Syncope Psychiatric: (+) Depression (-) Anxiety (-) Delusions (-) Hallucinations (-) Suicidal Thoughts PHYSICAL EXAM: Blood pressure 162/92, pulse (!) 58, resp. rate 18, height 182.9 cm (6'), weight 105.7 kg (233 lb), SpO2 97 %. General: Patient is a(n) average historian. The patient appears approximately his stated age and is sitting comfortably in the examining room. The patient is tall in stature and is overweight in appearance. He has no difficulty arising from a sitting position. He does have difficulty acquiring a full, upright position when standing. Station and Gait: Normal stance, normal gait. The patient is able to walk in a tandem gait. MENTAL STATUS EXAMINATION: The patient was well groomed and casually attired. The patient had good eye contact and rapport was easy to establish. The patient appeared to be alert and oriented in all spheres. The patient's motivation for treatment was judged based on today's encounter to be good. LUMBAR SPINE: Skin: Normal-no rashes, bruises, lesions, or signs of localized trauma., Skin color, texture and turgor normal. Lumbar Lordosis: Normal RANGE OF MOTION: Flexion: normal, as expected for age and weight Pain: No Extension: normal, as expected for age and weight Pain: No Lateral Bending: Right normal, as expected for age and weight Pain: No Left normal, as expected for age and weight Pain: yes, over right PSIS PALPATION TENDERNESS: Moderate at Right PSIS Hyperesthesia present: No Regional symptoms present: No Increased pain with axial loading: No Distraction: Normal Pain responses: appropriate NEUROLOGIC EXAM: MOTOR: Walk on Toes: Right: Yes Left: Yes Walk on Heels: Right: Yes Left: Yes Requires verbal cues to minimize cog-wheel or give-way resistance: No Hip Flexor R: 5/5 L: 5/5 Hip Adductor R: 5/5 L: 5/5 Hip Abductor R: 5/5 L: 5/5 Knee Extension R: 5/5 L: 5/5 Foot Dorsiflexion R: 5/5 L: 5/5 Foot Plantar Flexion R: 5/5 L: 5/5 Ext Hallicus Longus R: 5/5 L: 5/5 Toe Extensors R: +4/5 L: 5/5 SENSATION to Light Touch: Lumbar: L2-S1 symmetrically normal. REFLEXES: Lower Extremity: All Lower Extremity reflexes symmetrically normal. Clonus: R: 0 beats/Normal L: 0 beats/Normal Babinski Sign: Negative bilaterally. Upper Extremity: All Upper Extremity reflexes symmetrically normal. Mclain's Sign: Negative bilaterally. VASCULAR: Skin appearance: Right: Warm/pink Left: Warm/pink Capillary refill: Right: brisk Left: brisk ADDITIONAL MUSCULOSKELETAL EXAM: HIP/PELVIS EXAM: Pain: Right: No Left: No Greater Trochanteric pain: Right: No Left: No Tenderness over the PSIS: Right: Yes Left: No SPECIAL TESTS: Straight Leg Raise: negative bilaterally Contralateral Straight Leg Raise: negative bilaterally IMAGING STUDIES: Please see above for description of MRI lumbar spine findings. CNOV Observed: 08/07/2017 Status: COMPLETED Source: [place] 10:25 AM [facility] REPOSITORY Office Visit ([facility]) TREVOR COLEMAN ([id number]) 1950 M Date Time Provider Department 08/07/17 10:25 AM JERSEY WILDER (PAC) [facility]NMED During your visit today, we recorded the following information about you: Pulse Respiration Blood pressure Weight 58/minute 18/minute 162/92 105.7 kg Height 1.829 m VAN Gong 08/07/2017 11:25 AM Signed Jersey Wilder PA-C [facility] [place] [address] [place] [address] 08/07/2017 ASSESSMENT AND PLAN: Assessment : Encounter Diagnosis ICD-10-CM 1. Chronic right-sided low back pain without sciatica M54.5 XR LUMBAR MOTION 4V AP/LAT/ FLEX/EXT G89.29 CONSULT TO PHYSICAL THERAPY Discussion: Mr. Coleman is a pleasant 67-year-old gentleman here today for evaluation of right sided PSIS pain without radiation. He has a new MRI scan of the lumbar spine but no x-rays. 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 His PT helped quite a bit to reduce his symptoms while he was there but his home exercise program so far has not continued his progress. His exam is benign for neurologic deficit today. Reflexes, strength, and sensation are all intact. He does have pain on palpation over the right PSIS and reproduction of similar pain with leaning toward his left side. I will go ahead and obtain a series of plane lumbar radiographs for him and have him return to PT for more specific recommendations on a home exercise program. His MRI showed mild impingement on the right at S1 but his symptoms really do not correlate with this today. The other finding on the MRI is moderately severe facet arthrosis throughout the lumbar region. There is no bone marrow abnormality identified on the report for the scan. Plan : DIAGNOSTIC TESTING: -X-ray views will be obtained to better evaluate bony structures. -Dynamic plain radiographs of the Lumbar spine are ordered. REFERAL FOR SERVICES: -Physical therapy will be instituted. MEDICATIONS: -He was instructed to go forward with occasional use of [id number] anti-inflammatories as needed for his symptoms ACTIVITY RECOMMENDATIONS: -The patient is encouraged to avoid bed rest and maintain normal activity. -The patient is encouraged to exercise regularly as tolerated. FOLLOW-UP: -The patient is instructed to return in 3 months for follow-up. This document has been created with the use of voice recognition technology. It may contain inaccuracies: (e.g. misspellings, inaccurate syntax or word sense) that have escaped review. Time spent: 45 minutes with greater than 50% in face to face consultation with the patient. cc: Liseth Del Valle, [address] [facility] [address] [place] [address] Results of consultation to be transmitted via electronic medical record for those providers who practice within [facility] or with access to [facility] via [facility] Connect, or via letter. Trevor Lopez [place] is a 67 year old male who was seen today at the kind request of Dr. Hansel Ramsey. A copy of this office note is being sent to the requesting physician through via electronic medical record. CHIEF COMPLAINT: 100% low Back pain HPI: His back pain is at 3/10 and is intermittent. The back pain is located in lower back and is described as aching and stabbing. The symptoms are exacerbated by walking and improved by sitting. He states that these symptoms began 2 years ago and are not related to any specific injury or event. 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 This was completed 3 months ago. The therapy provided a small amount of relief. Spinal Injections: He has not gotten prior spinal injections. Other: None Current Outpatient Prescriptions: methylPREDNISolone (NAM MARIA,) 4 mg Dose-Pack Take as directed on package. Disp: 1 Package Rfl: 0 amLODIPine (NORVASC) 5 mg tablet Take 1 tablet by mouth once daily. (Patient taking differently: Take 10 mg by mouth once daily. ) Disp: 90 tablet Rfl: 3 atorvastatin (LIPITOR) 40 mg tablet Take 1 tablet by mouth once daily. Disp: 90 tablet Rfl: 3 aspirin, enteric coated (ASPIRIN, ENTERIC COATED) 81 mg EC tablet Take 81 mg by mouth once daily. Disp: Rfl: levothyroxine (LEVOXYL) 175 mcg tablet Take 1 tablet by mouth once daily. Take on empty stomach. For thyroid. Disp: 90 tablet Rfl: 4 triamcinolone acetonide (KENALOG) 0.1 % cream Apply to affected area twice daily. Disp: Rfl: hydrocortisone 2.5 % ointment Apply to affected area twice daily. Disp: Rfl: Cholecalciferol, Vitamin D3, (VITAMIN D-3) 2,000 unit tab Take 1 tablet by mouth once daily. Disp: 360 tablet Rfl: 1 fexofenadine-pseudoephedrine (RAHEL-D) 60-120 mg per tablet Take 1 tablet by mouth every 12 hours as needed (sinus congestion/cold symptoms). (Patient not taking: Reported on 07/09/2017 ) Disp: 30 tablet Rfl: 11 No current facility-administered medications for this visit. Allergies: Adhesive; Sulfa (Sulfonamide Antibiotics); Tapazole [Methimazole] PAST MEDICAL HISTORY Diagnosis Date - Hypertension - Stroke (HCC) PAST SURGICAL HISTORY Procedure Laterality Date - PAST SURGICAL HISTORY OF 1959 t AND a - PAST SURGICAL HISTORY OF 2007 carpal tunnel bilat. - PAST SURGICAL HISTORY OF [address] Isaacs Social History Marital status: Spouse name: Years of education: Number of children: Social History Main Topics Smoking status: Never Smoker Smokeless tobacco: Never Used Alcohol use: Yes Comment: rare Drug use: No Sexual activity: Yes Partners with: Female FAMILY HISTORY Problem Relation Age of Onset - None Mother - Heart Father BYPASS REVIEW OF SYSTEMS: Constitutional: (-) Fever (-) Night Sweats (+) Weight Gain (-) Weight Loss (-) Fatigue Cardiovascular: (-) Chest Pain (-) Palpitations (-) Lightheadedness (-) Swelling of Ankles (-) Hx Heart Surgery Respiratory: (-) Shortness of Breath (-) Cough (-) Wheezing (+) Snoring Gastrointestinal: (-) Incontinence (-) Abdominal Pain (-) Diarrhea (-) Constipation (-) Nausea/Vomiting (-) Heart Burn Endocrine: (+) Thyroid Disorder (-) Diabetes Hematologic: (-) Prolonged Bleeding (-) Easy Bruising Genitourinary: (-) Incontinence (-) Frequency (-) Urinary Urgency Skin: (-) Rashes (-) Itching (-) Other Lesions Neurologic: (-) Headache (-) Double Vision (-) Confusion (-) Paralysis (-) Vertigo (-) Syncope Psychiatric: (+) Depression (-) Anxiety (-) Delusions (-) Hallucinations (-) Suicidal Thoughts PHYSICAL EXAM: Blood pressure 162/92, pulse (!) 58, resp. rate 18, height 182.9 cm (6'), weight 105.7 kg (233 lb), SpO2 97 %. General: Patient is a(n) average historian. The patient appears approximately his stated age and is sitting comfortably in the examining room. The patient is tall in stature and is overweight in appearance. He has no difficulty arising from a sitting position. He does have difficulty acquiring a full, upright position when standing. Station and Gait: Normal stance, normal gait. The patient is able to walk in a tandem gait. MENTAL STATUS EXAMINATION: The patient was well groomed and casually attired. The patient had good eye contact and rapport was easy to establish. The patient appeared to be alert and oriented in all spheres. The patient's motivation for treatment was judged based on today's encounter to be good. LUMBAR SPINE: Skin: Normal-no rashes, bruises, lesions, or signs of localized trauma., Skin color, texture and turgor normal. Lumbar Lordosis: Normal RANGE OF MOTION: Flexion: normal, as expected for age and weight Pain: No Extension: normal, as expected for age and weight Pain: No Lateral Bending: Right normal, as expected for age and weight Pain: No Left normal, as expected for age and weight Pain: yes, over right PSIS PALPATION TENDERNESS: Moderate at Right PSIS Hyperesthesia present: No Regional symptoms present: No Increased pain with axial loading: No Distraction: Normal Pain responses: appropriate NEUROLOGIC EXAM: MOTOR: Walk on Toes: Right: Yes Left: Yes Walk on Heels: Right: Yes Left: Yes Requires verbal cues to minimize cog-wheel or give-way resistance: No Hip Flexor R: 5/5 L: 5/5 Hip Adductor R: 5/5 L: 5/5 Hip Abductor R: 5/5 L: 5/5 Knee Extension R: 5/5 L: 5/5 Foot Dorsiflexion R: 5/5 L: 5/5 Foot Plantar Flexion R: 5/5 L: 5/5 Ext Hallicus Longus R: 5/5 L: 5/5 Toe Extensors R: +4/5 L: 5/5 SENSATION to Light Touch: Lumbar: L2-S1 symmetrically normal. REFLEXES: Lower Extremity: All Lower Extremity reflexes symmetrically normal. Clonus: R: 0 beats/Normal L: 0 beats/Normal Babinski Sign: Negative bilaterally. Upper Extremity: All Upper Extremity reflexes symmetrically normal. Mclain's Sign: Negative bilaterally. VASCULAR: Skin appearance: Right: Warm/pink Left: Warm/pink Capillary refill: Right: brisk Left: brisk ADDITIONAL MUSCULOSKELETAL EXAM: HIP/PELVIS EXAM: Pain: Right: No Left: No Greater Trochanteric pain: Right: No Left: No Tenderness over the PSIS: Right: Yes Left: No SPECIAL TESTS: Straight Leg Raise: negative bilaterally Contralateral Straight Leg Raise: negative bilaterally IMAGING STUDIES: Please see above for description of MRI lumbar spine findings. Referring Provider: LISETH DEL VALLE [[id number]] Allergies As of Date: 08/07/2017 Noted Allergy Reaction ADHESIVE 07/10/2016 2 - Rash SULFA (SULFONAMIDE ANTIBIOTICS) 02/08/2005 TAPAZOLE (METHIMAZOLE) 01/25/2010 2 - Rash Date Reviewed: 08/07/2017 Reviewed by: Shannon Ruelas MA - Fully Assessed Reason for Visit: New Patient [172] Low Back Pain [126] Primary Visit Diagnosis:Chronic right-sided low back pain without sciatica [M54.5, G89.29] Order(s):XR LUMBAR MOTION 4V AP/LAT/ FLEX/EXT [1288921] Order #: [id number] FUTURE CONSULT TO PHYSICAL THERAPY [9032] Order #: [id number]: 1 Prescriptions as of 08/07/2017 Sig: METHYLPREDNISOLONE 4 MG TABLE* Take as directed on package. AMLODIPINE 5 MG TABLET Take 1 tablet by mouth once d* Patient taking differently: Take 10 mg by mouth once lokesh* ATORVASTATIN 40 MG TABLET Take 1 tablet by mouth once d* ASPIRIN 81 MG TABLET,DELAYED * Take 81 mg by mouth once lokesh* LEVOTHYROXINE 175 MCG TABLET Take 1 tablet by mouth once d* TRIAMCINOLONE ACETONIDE 0.1 %* Apply to affected area twice* HYDROCORTISONE 2.5 % TOPICAL * Apply to affected area twice* CHOLECALCIFEROL (VITAMIN D3) * Take 1 tablet by mouth once d* FEXOFENADINE 60 MG-PSEUDOEPHE* Take 1 tablet by mouth every * Patient not taking: Reported on 07/09/2017 Problem List As Of Date 08/07/2017 Noted Resolved Hemorrhoid [K64.9] INVALID FOR* Postablative Hypothyroidism [E89.0] INVALID FOR* More... Low Back Pain [M54.5] INVALID FOR* Scaly Patch Rash [R21] INVALID FOR* Impaired Fasting Glucose [R73.01] INVALID FOR* Hyperthyroidism [E05.90] INVALID FOR*11/09/2009 Hypothyroidism [E03.9] INVALID FOR*11/09/2009 Psoriasis [L40.9] INVALID FOR* Essential hypertension [I10] INVALID FOR* Disposition: Return in about 3 months (around 11/07/2017). Follow-up and Disposition History Recorded Encounter Status:Closed by TINA BECERRA, JERSEY Olson on 08/07/17 MRI LUMBAR SPINE WO Observed: 07/15/2017 Status: F Source: [place] IVCON 11:20 AM [facility] REPOSITORY * * *Final Report* * * DATE OF EXAM: Jul 15 2017 11:20AM [facility] [id number] - MRI LUMBAR SPINE WO IVCON / PROCEDURE REASON: Spinal stenosis, lumbar region without neurogenic claudication * * * * Physician Interpretation * * * * EXAMINATION: MRI LUMBAR SPINE WO IVCON CLINICAL HISTORY: Spinal stenosis, lumbar region without neurogenic claudication TECHNIQUE: Routine lumbosacral spine MR protocol without gadolinium. COMPARISON: None. RESULT: Counting reference: Lumbosacral junction. For the purposes of this report, L4-5 is considered the level of the iliac crest. Alignment: Alignment is anatomic. Bone marrow signal/fracture: No evidence of pathologic marrow infiltration. No evidence of prior fracture. Conus: The conus is within normal limits of signal intensity and morphology. Paraspinal soft tissues: Bilateral renal cysts with the largest in the right interpolar region measuring 5.2 cm. 7 x 5 mm cyst along the right L1-L2 facet. Lower thoracic spine: Visualized lower thoracic canal and foramina are patent. T12-L1: Canal and foramina are patent. L1-L2: Canal and foramina are patent. L2-L3: Bilateral facet hypertrophy, slightly asymmetric on the left with effacement along the left posterior thecal sac without significant canal narrowing. No neuroforaminal narrowing L3-L4: Mild disc bulge and bilateral facet hypertrophy, asymmetric to the left, with mild effacement along the left posterior thecal sac. No significant canal stenosis. No neuroforaminal narrowing. L4-L5: Mild disc bulge and bilateral facet hypertrophy with mild effacement along the left posterior thecal sac without significant canal stenosis. No neuroforaminal narrowing. L5-S1: Mild disc bulge and bilateral facet hypertrophy without significant canal narrowing or neuroforaminal stenosis. There is mild effacement of right subarticular recess with minimal impingement of the traversing right S1 nerve root. Sacrum and iliac wings: The visualized sacrum and iliac wings are within normal limits. IMPRESSION: MILD IMPINGEMENT OF TRAVERSING RIGHT S1 NERVE AT L5-S1 DETAILED. 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 NO ADDITIONAL SIGNIFICANT SIGNIFICANT CANAL OR FORAMINAL NARROWING. Sole Layer: LACHO Transcribe Date/Time: Jul 15 2017 11:41A Dictated by : LIZABETH CEDEÑO DO This examination was interpreted and the report reviewed and electronically signed by: TIRSO KUMAR MD on Jul 15 2017 1:32PM EST [id number] Observed: 07/15/2017 Status: COMPLETED Source: [place] 11:11 AM [facility] REPOSITORY HNO ID: [id number] Author: Liseth (Rt) Ron Armstrong Service: (none) Author Type: Engineering Model Maker Type: Progress Notes Filed: 07/15/2017 11:12 AM Note Text: Radiology Service Progress Note PATIENT NAME: Trevor Coleman DATE OF SERVICE: July 15, 2017 TIME: 11:11 AM PATIENT IDENTITY VERIFICATION COMPLETED USING TWO (2) METHODS: Patient confirmed name verbally and Date of . PATIENT GENDER DATA: Male PATIENT RELEVANT IMPLANT DATA REVIEWED: Yes RADIOLOGY DEPARTMENT: MR; Exam(s) Completed: Spine: Lumbar spine PERIPHERAL IV DATA: Not applicable SIGNED BY: RT Gretel July 15, 2017 11:11 AM PROGRESS Observed: 07/09/2017 Status: COMPLETED Source: [place] 11:51 AM [facility] REPOSITORY HNO ID: [id number] Author: Hansel Ramsey Jr. Service: (none) Author Type: Physician Type: Progress Notes Filed: 07/09/2017 12:44 PM Note Text: ESTABLISHED PATIENT VISIT HISTORY OF PRESENT ILLNESS: Trevor Coleman is a 67 year old male, BMI 30.69 kg/m2 with a PMH significant for: 1. History of stroke - ICD9: V12.54, ICD10: Z86.73 (primary diagnosis) 2. Spinal stenosis of lumbar region without neurogenic claudication - ICD9: 724.02, ICD10: M48.061 - last visit referred to PT. 3. Obstructive sleep apnea syndrome - ICD9: 327.23, ICD10: G47.33 While AHI elevated by AASM guidelines, by CMS it is normal and thus did not qualify for PAP. Encouraged pt to sleep off supine. Patient states he feels like he is doing well. He reports no TIAs (no focal weakness, numbness, vision changes, speech changes...). PCP did increase BP meds - elevated today but he states at home it usually is running with sys <140. Regarding back pain, he did see PT. States he is uncertain if therapy helped and back pain is really flaring in the past month. Pain near daily. States for an hour he will be fined and then hits up. He did get a referral to orthopedics in [place], but did not go. States significantly worse from a year ago. Now has difficulties playing golf. Lumbar and more right of midline radiating into the right buttock. Improved with sitting. States if walking pain exacerbated. No groin pain. Currently on no medications. He does not want a medication just to mask pain. No bowel or bladder dysfunction. Regarding ASYA, patient states he always sleeps on his side. No issues staying asleep. Feels refreshed upon waking. Occasional snoring. Of note he has gained 10#. At this time he does not want additional sleep studies. REVIEW OF SYSTEMS GENERAL:No weight loss, malaise or fevers. HEENT:Negative for frequent or significant headaches, No changes in hearing or vision, no nose bleeds or other nasal problems NECK:Negative for lumps, goiter, pain and significant neck swelling RESPIRATORY: Negative for cough, wheezing or shortness of breath. CARDIOVASCULAR: Negative for chest pain, leg swelling or palpitations. GASTROINTESTINAL: Negative for abdominal discomfort, blood in stools or black stools or change in bowel habits GENITOURINARY: No history of dysuria, frequency or incontinence MUSCULOSKELETAL: See HPI NEUROLOGIC:Negative for focal numbness or weakness, headaches and dizziness or syncope, vision changes, speech/languag changes - EXCEPT that as per HPI above. SKIN:Negative for lesions, rash, and itching. HEMATOLOGIC/LYMPHATIC/IMMUNOLOGIC:Negative for prolonged bleeding, bruising easily or swollen nodes. ENDOCRINE: Negative for cold or heat intolerance, polyuria, polydipsia and goiter. The remainder of the ROS was reviewed and is negative. LAB/IMAGING: Those performed since patient's last visit have been reviewed. Glucose (mg/dL) Date Value 09/19/2016 109 (H) BUN (mg/dL) Date Value 09/19/2016 20 Creatinine (mg/dL) Date Value 09/19/2016 1.07 Sodium (mmol/L) Date Value 09/19/2016 140 Potassium (mmol/L) Date Value 09/19/2016 4.1 Chloride (mmol/L) Date Value 09/19/2016 102 CO2 (mmol/L) Date Value 09/19/2016 28 Protein, Total (g/dL) Date Value 09/19/2016 6.3 Albumin (g/dL) Date Value 09/19/2016 3.9 Calcium (mg/dL) Date Value 09/19/2016 9.4 Alkaline Phosphatase (U/L) Date Value 09/19/2016 37 Bilirubin, Total (mg/dL) Date Value 09/19/2016 1.2 AST (U/L) Date Value 09/19/2016 21 ALT (U/L) Date Value 09/19/2016 33 Rheumatoid Factor (IU/mL) Date Value 06/09/2009 14 Hep C Antibody IA (no units) Date Value 08/11/2015 Negative Cholesterol, Total Date Value Ref Range Status 09/19/2016 112 100 - 199 mg/dL Final HDL Cholesterol Date Value Ref Range Status 09/19/2016 34 (L) >45 mg/dL Final LDL Cholesterol Date Value Ref Range Status 09/19/2016 56 (L) 60 - 129 mg/dL Final Triglyceride Date Value Ref Range Status 09/19/2016 108 30 - 149 mg/dL Final MEDICATIONS: amLODIPine (NORVASC) 5 mg tablet Take 1 tablet by mouth once daily. atorvastatin (LIPITOR) 40 mg tablet Take 1 tablet by mouth once daily. aspirin, enteric coated (ASPIRIN, ENTERIC COATED) 81 mg EC tablet Take 81 mg by mouth once daily. levothyroxine (LEVOXYL) 175 mcg tablet Take 1 tablet by mouth once daily. Take on empty stomach. For thyroid. triamcinolone acetonide (KENALOG) 0.1 % cream Apply to affected area twice daily. hydrocortisone 2.5 % ointment Apply to affected area twice daily. Cholecalciferol, Vitamin D3, (VITAMIN D-3) 2,000 unit tab Take 1 tablet by mouth once daily. fexofenadine-pseudoephedrine (RAHEL-D) 60-120 mg per tablet Take 1 tablet by mouth every 12 hours as needed (sinus congestion/cold symptoms). HISTORIES PAST MEDICAL HISTORY Diagnosis Date - Hypertension - Stroke (HCC) FAMILY HISTORY Problem Relation Age of Onset - None Mother - Heart Father BYPASS SOCIAL HISTORY Social History Substance Use Topics - Smoking status: Never Smoker - Smokeless tobacco: Never Used - Alcohol use Yes Comment: rare PHYSICAL EXAMINATION BP 147/88 (BP Site: Left Arm, BP Position: Sitting, BP Cuff Size: Large Adult) Pulse 61 Wt 104.8 kg (231 lb) SpO2 96% BMI 30.69 kg/m? GENERAL EXAM: General appearance: NAD, pleasant. HEENT: NC/AT, nasal congestion absent, no oral lesions, membranes moist. NECK: No masses, supple. Lungs: CTA bilaterally. CV: RRR nl S1, S2. No carotid bruits. Abd: Soft, nontender, nondistended. Bowel sounds present. Extr: No cyanosis, clubbing or edema. Extremity pulses palpable and normal. Skin: Cool to touch. No rash. ? NEUROLOGICAL EXAM: General: Awake, alert, oriented x3 (person,place,time), speech fluent, no dysarthria; comprehension, naming, repetition intact. Short and mcc memory intact. Fund of knowledge grossly normal by MOCA. CN: PERRL, EOMI and without nystagmus, VFF to confrontation, facial sensation and strength are normal and symmetric, hearing is intact to finger rub bilaterally, palate and tongue movements are intact and symmetric. SCM and trapezius strength normal. Motor: Normal tone, bulk and strength (5/5) bilaterally (throughout extremities x4). Reflexes: 2/4 and symmetric, plantar stimulation is flexor court. Coordination: FNF, MATY, HTS intact. No tremors. Sensation: Light touch, pin intact throughout. No evidence of neglect. Gait: Narrow based and stable with normal stride and arm swing. Assessment and Plan: ASSESSMENT/PLAN: 1. Spinal stenosis of lumbar region without neurogenic claudication - ICD9: 724.02, ICD10: M48.061 (primary diagnosis) Patient with worsening pain in the lumbar region and radiating into R buttock area. Concern is for worsening stenosis and thus will get MRI of L spine to evaluate. Note that last MRI was >1 year ago. He will continue with therapy exercises. Will also provide Medrol dose nam to see if provides any relief of discomfort (possible inflammation). He does not want meds to just mask symptoms. 2. History of stroke - ICD9: V12.54, ICD10: Z86.73 Overall patient doing well. No focal neuro deficits, and no residual complications secondary to stroke. Reviewed 30 day event monitor performed at [place] and no noted afib or other arrhythmias that would be concerning for cardio embolic source. Recommend following: -Continue ASA daily. -Continue statin daily. -BP goal <140/90 - elevated today. -Glucose goal <140. -Encouraged exercise. ? 3. Obstructive sleep apnea syndrome - ICD9: 327.23, ICD10: G47.33 Reminded patient to sleep on his side. Hansel Ramsey MD I spent 30 minutes in the visit, with more than 50% of the total ltws-eg-ytci time of the visit in counseling / coordination of care. CNOV Observed: 07/09/2017 Status: COMPLETED Source: [place] 11:20 AM [facility] REPOSITORY Office Visit (NEURMM) TREVOR COLEMAN ([id number]) 1950 M Date Time Provider Department 07/09/17 11:20 AM HANSEL RAMSEY JR [facility] During your visit today, we recorded the following information about you: Pulse Blood pressure Weight 61/minute 147/88 104.8 kg Hansel Ramsey MD 07/09/2017 12:44 PM Signed ESTABLISHED PATIENT VISIT HISTORY OF PRESENT ILLNESS: Trevor Coleman is a 67 year old male, BMI 30.69 kg/m2 with a PMH significant for: 1. History of stroke - ICD9: V12.54, ICD10: Z86.73 (primary diagnosis) 2. Spinal stenosis of lumbar region without neurogenic claudication - ICD9: 724.02, ICD10: M48.061 - last visit referred to PT. 3. Obstructive sleep apnea syndrome - ICD9: 327.23, ICD10: G47.33 While AHI elevated by AASM guidelines, by [facility] it is normal and thus did not qualify for PAP. Encouraged pt to sleep off supine. Patient states he feels like he is doing well. He reports no TIAs (no focal weakness, numbness, vision changes, speech changes...). PCP did increase BP meds - elevated today but he states at home it usually is running with sys <140. Regarding back pain, he did see PT. States he is uncertain if therapy helped and back pain is really flaring in the past month. Pain near daily. States for an hour he will be fined and then hits up. He did get a referral to orthopedics in [place], but did not go. States significantly worse from a year ago. Now has difficulties playing golf. Lumbar and more right of midline radiating into the right buttock. Improved with sitting. States if walking pain exacerbated. No groin pain. Currently on no medications. He does not want a medication just to mask pain. No bowel or bladder dysfunction. Regarding ASYA, patient states he always sleeps on his side. No issues staying asleep. Feels refreshed upon waking. Occasional snoring. Of note he has gained 10#. At this time he does not want additional sleep studies. REVIEW OF SYSTEMS GENERAL:No weight loss, malaise or fevers. HEENT:Negative for frequent or significant headaches, No changes in hearing or vision, no nose bleeds or other nasal problems NECK:Negative for lumps, goiter, pain and significant neck swelling RESPIRATORY: Negative for cough, wheezing or shortness of breath. CARDIOVASCULAR: Negative for chest pain, leg swelling or palpitations. GASTROINTESTINAL: Negative for abdominal discomfort, blood in stools or black stools or change in bowel habits GENITOURINARY: No history of dysuria, frequency or incontinence MUSCULOSKELETAL: See HPI NEUROLOGIC:Negative for focal numbness or weakness, headaches and dizziness or syncope, vision changes, speech/languag changes - EXCEPT that as per HPI above. SKIN:Negative for lesions, rash, and itching. HEMATOLOGIC/LYMPHATIC/IMMUNOLOGIC:Negative for prolonged bleeding, bruising easily or swollen nodes. ENDOCRINE: Negative for cold or heat intolerance, polyuria, polydipsia and goiter. The remainder of the ROS was reviewed and is negative. LAB/IMAGING: Those performed since patient's last visit have been reviewed. Glucose (mg/dL) Date Value 09/19/2016 109 (H) BUN (mg/dL) Date Value 09/19/2016 20 Creatinine (mg/dL) Date Value 09/19/2016 1.07 Sodium (mmol/L) Date Value 09/19/2016 140 Potassium (mmol/L) Date Value 09/19/2016 4.1 Chloride (mmol/L) Date Value 09/19/2016 102 CO2 (mmol/L) Date Value 09/19/2016 28 Protein, Total (g/dL) Date Value 09/19/2016 6.3 Albumin (g/dL) Date Value 09/19/2016 3.9 Calcium (mg/dL) Date Value 09/19/2016 9.4 Alkaline Phosphatase (U/L) Date Value 09/19/2016 37 Bilirubin, Total (mg/dL) Date Value 09/19/2016 1.2 AST (U/L) Date Value 09/19/2016 21 ALT (U/L) Date Value 09/19/2016 33 Rheumatoid Factor (IU/mL) Date Value 06/09/2009 14 Hep C Antibody IA (no units) Date Value 08/11/2015 Negative Cholesterol, Total Date Value Ref Range Status 09/19/2016 112 100 - 199 mg/dL Final HDL Cholesterol Date Value Ref Range Status 09/19/2016 34 (L) >45 mg/dL Final LDL Cholesterol Date Value Ref Range Status 09/19/2016 56 (L) 60 - 129 mg/dL Final Triglyceride Date Value Ref Range Status 09/19/2016 108 30 - 149 mg/dL Final MEDICATIONS: amLODIPine (NORVASC) 5 mg tablet Take 1 tablet by mouth once daily. atorvastatin (LIPITOR) 40 mg tablet Take 1 tablet by mouth once daily. aspirin, enteric coated (ASPIRIN, ENTERIC COATED) 81 mg EC tablet Take 81 mg by mouth once daily. levothyroxine (LEVOXYL) 175 mcg tablet Take 1 tablet by mouth once daily. Take on empty stomach. For thyroid. triamcinolone acetonide (KENALOG) 0.1 % cream Apply to affected area twice daily. hydrocortisone 2.5 % ointment Apply to affected area twice daily. Cholecalciferol, Vitamin D3, (VITAMIN D-3) 2,000 unit tab Take 1 tablet by mouth once daily. fexofenadine-pseudoephedrine (RAHEL-D) 60-120 mg per tablet Take 1 tablet by mouth every 12 hours as needed (sinus congestion/cold symptoms). HISTORIES PAST MEDICAL HISTORY Diagnosis Date - Hypertension - Stroke (HCC) FAMILY HISTORY Problem Relation Age of Onset - None Mother - Heart Father BYPASS SOCIAL HISTORY Social History Substance Use Topics - Smoking status: Never Smoker - Smokeless tobacco: Never Used - Alcohol use Yes Comment: rare PHYSICAL EXAMINATION BP 147/88 (BP Site: Left Arm, BP Position: Sitting, BP Cuff Size: Large Adult) Pulse 61 Wt 104.8 kg (231 lb) SpO2 96% BMI 30.69 kg/m? GENERAL EXAM: General appearance: NAD, pleasant. HEENT: NC/AT, nasal congestion absent, no oral lesions, membranes moist. NECK: No masses, supple. Lungs: CTA bilaterally. CV: RRR nl S1, S2. No carotid bruits. Abd: Soft, nontender, nondistended. Bowel sounds present. Extr: No cyanosis, clubbing or edema. Extremity pulses palpable and normal. Skin: Cool to touch. No rash. ? NEUROLOGICAL EXAM: General: Awake, alert, oriented x3 (person,place,time), speech fluent, no dysarthria; comprehension, naming, repetition intact. Short and mcc memory intact. Fund of knowledge grossly normal by MOCA. CN: PERRL, EOMI and without nystagmus, VFF to confrontation, facial sensation and strength are normal and symmetric, hearing is intact to finger rub bilaterally, palate and tongue movements are intact and symmetric. SCM and trapezius strength normal. Motor: Normal tone, bulk and strength (5/5) bilaterally (throughout extremities x4). Reflexes: 2/4 and symmetric, plantar stimulation is flexor court. Coordination: FNF, MATY, HTS intact. No tremors. Sensation: Light touch, pin intact throughout. No evidence of neglect. Gait: Narrow based and stable with normal stride and arm swing. Assessment and Plan: ASSESSMENT/PLAN: 1. Spinal stenosis of lumbar region without neurogenic claudication - ICD9: 724.02, ICD10: M48.061 (primary diagnosis) Patient with worsening pain in the lumbar region and radiating into R buttock area. Concern is for worsening stenosis and thus will get MRI of L spine to evaluate. Note that last MRI was >1 year ago. He will continue with therapy exercises. Will also provide Medrol dose nam to see if provides any relief of discomfort (possible inflammation). He does not want meds to just mask symptoms. 2. History of stroke - ICD9: V12.54, ICD10: Z86.73 Overall patient doing well. No focal neuro deficits, and no residual complications secondary to stroke. Reviewed 30 day event monitor performed at [place] and no noted afib or other arrhythmias that would be concerning for cardio embolic source. Recommend following: -Continue ASA daily. -Continue statin daily. -BP goal <140/90 - elevated today. -Glucose goal <140. -Encouraged exercise. ? 3. Obstructive sleep apnea syndrome - ICD9: 327.23, ICD10: G47.33 Reminded patient to sleep on his side. Hansel Ramsey MD I spent 30 minutes in the visit, with more than 50% of the total oytp-tu-desm time of the visit in counseling / coordination of care. Referring Provider: HANSEL RAMSEY JR [[id number]] Allergies As of Date: 07/09/2017 Noted Allergy Reaction ADHESIVE 07/10/2016 2 - Rash SULFA (SULFONAMIDE ANTIBIOTICS) 02/08/2005 TAPAZOLE (METHIMAZOLE) 01/25/2010 2 - Rash Date Reviewed: 07/09/2017 Reviewed by: Hansel Ramsey Jr. - Fully Assessed Reason for Visit: Follow Up [171] Cmt: mini stroke Primary Visit Diagnosis:Spinal stenosis of lumbar region without neurogenic claudication [M48.061] Other Visit Diagnoses:History of stroke [Z86.73] Obstructive sleep apnea syndrome [G47.33] Order(s):methylPREDNISolone (MEDROL, NAM,) 4 mg Dose-PackTake as directed on package.Disp: 1 PackageRfl: 0 MRI LUMBAR SPINE IVCON [[id number]] Order #: [id number] FUTURE Prescriptions as of 07/09/2017 Sig: AMLODIPINE 5 MG TABLET Take 1 tablet by mouth once d* Patient taking differently: Take 10 mg by mouth once lokesh* ATORVASTATIN 40 MG TABLET Take 1 tablet by mouth once d* ASPIRIN 81 MG TABLET,DELAYED * Take 81 mg by mouth once lokesh* LEVOTHYROXINE 175 MCG TABLET Take 1 tablet by mouth once d* TRIAMCINOLONE ACETONIDE 0.1 %* Apply to affected area twice* HYDROCORTISONE 2.5 % TOPICAL * Apply to affected area twice* CHOLECALCIFEROL (VITAMIN D3) * Take 1 tablet by mouth once d* METHYLPREDNISOLONE 4 MG TABLE* Take as directed on package. FEXOFENADINE 60 MG-PSEUDOEPHE* Take 1 tablet by mouth every * Patient not taking: Reported on 07/09/2017 Problem List As Of Date 07/09/2017 Noted Resolved Hemorrhoid [K64.9] INVALID FOR* Postablative Hypothyroidism [E89.0] INVALID FOR* More... Low Back Pain [M54.5] INVALID FOR* Scaly Patch Rash [R21] INVALID FOR* Impaired Fasting Glucose [R73.01] INVALID FOR* Hyperthyroidism [E05.90] INVALID FOR*11/09/2009 Hypothyroidism [E03.9] INVALID FOR*11/09/2009 Psoriasis [L40.9] INVALID FOR* Essential hypertension [I10] INVALID FOR* Prescriptions ordered this encounter Disp Refills Start End METHYLPREDNISOLONE 4 MG TABLETS IN A* 1 Pa* 0 07/09/2017 Sig: Take as directed on package. Disposition: Return in about 4 months (around 11/09/2017). Follow-up and Disposition History Recorded Encounter Status:Closed by HANSEL RAMSEY on 07/09/17 CNCO Observed: 06/27/2017 Status: COMPLETED Source: [place] 12:00 AM [facility] REPOSITORY Letter Text Hansel Ramsey MD [facility] [address] [place] [address] Trevor Coleman June 27, 2017 Trevor Coleman [address] [place] [address] Dear Trevor Coleman: Due to a change in your provider's schedule, it has become necessary to cancel the following appointment: Hansel Ramsey MD Date: 09/09/17 Time: 10:40 AM We apologize for any inconvenience to you, however your provider would still like to see you. Please call us at [phone] to reschedule your appointment. Sincerely, Appointment Staff CBC W/DIFF, AUTOMATED Collected: 04/29/2017 Status: F Source: [place] 9:01 AM [facility] REPOSITORY TYPE CODE TESTS RESULT OUT OF RANGE REFERENCE UNITS LAB L100.1000 4.4-11.0 K/mm3 Normal WBC 5.9 LAB L100.1200 4.6-6.2 M/mm3 Low RBC 4.57 LAB L100.1300 13.0-16.5 g/dl Normal HGB 14.3 LAB L100.1400 40-54 % Normal HCT 43.8 LAB L100.1500 80-94 fL High MCV 95.8 LAB L100.1600 27.0-32.0 pg Normal MCH 31.3 LAB L100.1700 32-36 g/gl Normal MCHC 32.6 LAB L100.1810 11.6-14.6 % Normal RDW CV 12.1 LAB L100.1820 35.1-43.9 fl Normal RDW SD 42.5 LAB L100.1900 150-450 K/mm3 Normal PLT 156 LAB L100.2000 6.2-12.0 fl High MPV 12.3 LAB L100.2100 47-70 % Normal NEUT% 53.1 LAB L100.2200 19-41 % Normal LY% 34.6 LAB L100.2300 0-10 % Normal MONO% 9.0 LAB L100.2400 0-5 % Normal EO% 2.2 LAB L100.2500 0-1 % Normal BASO% 0.3 LAB L100.2550 0.0-0.9 % Normal IM GRAN % 0.800 Result Comment: IG% - Immature Granulocytes (promyelocytes, myelocytes and metamyelocytes) > 1% indicates that a LEFT SHIFT is Present. LAB L100.2620 2.0-7.7 X10 3/uL Normal Absolute Neut 3.1 LAB L100.2720 0.83-4.51 X10 3/ul Normal Absolute Lymph 2.05 Performed By: #### L100.0100 #### [facility] [address] [place], [address] COMPREHENSIVE METABOLIC Collected: 04/29/2017 Status: F Source: [facility] 9:01 AM [facility] REPOSITORY TYPE CODE TESTS RESULT OUT OF RANGE REFERENCE UNITS LAB L501.0100 74-106 mg/dL Normal GLU 100 Result Comment: Fasting Glucose result from 100 to 125 mg/dL suggests IMPAIRED HOMEOSTASIS per A.D.A. criteria. Please note revised GLUCOSE reference range effective 2017. LAB L501.1000 7-18 mg/dL Normal BUN 14 LAB L501.1100 0.70-1.30 mg/dL Normal CREAT,SERUM 1.18 Result Comment: The validity of the calculated GFR AND GFRAA in patients over 70 years has not been determined. Clinical correlation is essential. LAB L501.1110 >60 mL/min Normal EST GFR 65 Result Comment: Non- GFR Calc LAB L501.1115 >60 mL/min Normal EST GFR - AA 79 Result Comment: GFR Calc LAB L501.1300 10-20 RATIO Normal BUN/CRE 11.9 LAB L501.1500 6.4-8.2 g/dL T Normal PROT 6.7 LAB L501.1800 3.2-5.0 g/dL Normal ALB 3.3 LAB L501.1950 2.2-4.2 g/dL Normal GLOB 3.4 LAB L501.2000 0.9-2.4 RATIO Normal A/G 1.0 LAB L501.2200 8.5-10.1 mg/dL CA Normal 8.5 LAB L501.4100 15-37 U/L High AST 41 LAB L501.4305 45-117 U/L Normal ALK P 47 LAB L501.4405 16-61 U/L Normal ALT 51 Result Comment: Please note revised ALT reference range effective 2017. LAB L501.4600 0.20-1.00 mg/dL Normal T BILI 0.50 LAB L501.5300 136-145 mmol/L Normal NA 142 LAB L501.5600 3.5-5.1 mmol/L Normal K 4.3 LAB L501.5900 98-107 mmol/L Normal CL 105 LAB L501.6100 21.0-32.0 mmol/L Normal CO2 28.0 LAB L501.6200 5-15 Normal GAP 9 Performed By: #### L500.4050, L500.4100, L501.9520, L506.0400 #### [facility] [address] [place], [address] LIPID PROFILE Collected: 04/29/2017 Status: F Source: [place] 9:01 AM [facility] REPOSITORY TYPE CODE TESTS RESULT OUT OF RANGE REFERENCE UNITS LAB L501.4900 200 mg/dL Normal CHOL 96 Result Comment: <200 mg/dL Desirable 200-240 mg/dL Borderline >240 mg/dL High Risk LAB L501.5000 mg/dL Normal TRIG 106 Result Comment: The drugs N-Acetylcysteine and Metamizole may falsely depress this assay. Serum Triglycerides Reference Interval Normal <150 mg/dL Borderline high 150 - 199 mg/dL High 200 - 499 mg/dL Very High > or = 500 mg/dL LAB L501.6400 mg/dL Low HDL 31 Result Comment: The drugs N-Acetylcysteine and Metamizole may falsely depress this assay. Reference Range HDL <40 mg/dL Low HDL Cholesterol HDL >or= 60 mg/dL High HDL Cholesterol LAB L501.6500 0-130 mg/dL Normal LDL 44 LAB L501.6600 5-40 mg/dL Normal VLDL 21 Performed By: #### L500.4050, L500.4100, L501.9520, L506.0400 #### [facility] [address] [place], [address] THYROID STIM HORMONE Collected: 04/29/2017 Status: F Source: [place] [facility] 9:01 AM [facility] REPOSITORY TYPE CODE TESTS RESULT OUT OF RANGE REFERENCE UNITS LAB L501.9520 0.358-3.74 uIU/mL Normal TSH 2.39 Performed By: #### L500.4050, L500.4100, L501.9520, L506.0400 #### [facility] [address] [place], [address] T4 FREE DIRECT Collected: 04/29/2017 Status: F Source: [place] 9:01 AM [facility] REPOSITORY TYPE CODE TESTS RESULT OUT OF RANGE REFERENCE UNITS LAB L506.0400 0.76-1.46 ng/dL Normal T4 FREE 1.38 DIRECT Performed By: #### L500.4050, L500.4100, L501.9520, L506.0400 #### [facility] [address] [place], [address] PT D/C SUMMARY (1) Observed: 03/15/2017 Status: F Source: [place] 10:34 AM [facility] REPOSITORY [facility] [address] [place] [address] Fax REHABILITATION SERVICES DISCHARGE SUMMARY MR#: [id number] Acct: [id number] Name: TREVOR COLEMAN Rep #: [id number] : 1950 67 From: Camelia Duran DPT Referring Dr.: Joaquín Benavides DO Status: REG RCR Insurance: MEDICARE PART A B AARP HP - PT D/C Summary It has been my pleasure to treat TREVOR COLEMAN under orders from Jaoquín Benavides DO, [email or web address] for the diagnosis of Back pain/Left knee pain for a total of 9 visit(s). Discharge Date: Please see the following information for a summary of their discharge status. - Subjective Subjective: Patient reports the ROM in the knee is better and it doesn't hurt as much and the back has been pretty good. Feels that his knee is 80% better and the back is 80% better. Just feels stiff. - Pain Back Pain Intensity (Out of 10): 0 left knee Pain Intensity (Out of 10): 0 - Overall Improvement % Improvement: 80 - Objective Objective/Function: Posture: good throughout. Gait: no deviation noted. ROM: WFL in all planes. Stairs:asc/desc 8 recip with no HR. Strength: Core: fair plus, LE: 5/5 - Goals Goal 1:: Patient will be I with HEP and progression Goal Progress: Goal Met Goal 2:: Patient will maintain proper posture t/o tx session to demo increased core s/s. Goal Progress: Goal Met Goal 3:: Patient will demo 5/5 strength in LE where deficit to ease ADL's. Goal Progress: Goal Met Goal 4:: Patient will demo moderate flexibility in all deficit areas Goal Progress: Goal Met - Plan Plan: Cont with POC - D/C Information If there are questions or concerns regarding this patient's physical therapy, please feel free to call me at [phone]. Thank you for the referral of this patient. Sincerely, Camelia Duran <Electronically signed by Camelia WYLIET> 03/15/17 1034 CC: Liseth Del Valle DO; Joaquín Benavides DO ELR Signed ALLERGIES ALLERGIES DATE TYPE / CODE NAME / CODE REACTION SEVERITY SOURCE 01/22/2018 Drug Sulfa (Sulfonamide PT CAN'T Unknown [place] Allergy/416 Antibiotics)/F0010 REMEMBER Community [id number]([facility] [address]75([facility] ED CT) Repository 01/22/2018 Drug methimazole/[id number] Unknown [place] Allergy/416 2139(RXNORM) Community [id number]([facility] ED CT) Repository 01/22/2018 Drug adhesive Unknown [place] Allergy/416 tape/[id number](RX Community [id number]([facility] ED CT) Repository 07/10/2016 Drug ADHESIVE RASH [facility] Class/36080 [address] [place] 1003(SNOMED Repository CT) 01/25/2010 DRUG METHIMAZOLE RASH [facility] INGREDI/419 [facility] [place] 810708(SNOM Repository ED CT) 02/08/2005 Drug SULFA (SULFONAMIDE [facility] Class/57461 ANTIBIOTICS) Main [place] 1003(SNOMED Repository CT) NG/[id number] ADHESIVE [facility] 6(SNOMED [facility]) Repository NG/[id number] SULFA (SULFONAMIDE [facility] 6(SNOMED ANTIBIOTICS) Health System CT) Repository NG/[id number] METHIMAZOLE [facility] 6(SNOMED [facility]) Repository ENCOUNTERS ENCOUNTERS ADMIT/DISCHARGE ACCOUNT NUMBER ADMITTING ENCOUNTER LOCATION SOURCE CLASS 03/05/2018/03/05/19 [id number] Ambulatory [address] Other [place] Repository 03/05/2018/03/05/19 [id number] Ambulatory AKRON [facility] [address] [place] [address] System MEDICAL Repository CENTERBuildi ng:NAHG 01/24/2018/01/25/20 [id number] Ambulatory BMSBuilding: [place] 18 BMS.CF.[facility] Repository 01/24/2018/01/25/20 [id number] Ambulatory [address] ding:ENRoom: Repository AC15 01/17/2018 [id number] Ambulatory BMSBuilding: [place] BMS.CF.[facility] Repository 01/17/2018 [id number] Ambulatory [facility] ding:CVS Repository 01/09/2018/01/10/20 [id number] Ambulatory BMSBuilding: [place] 18 BMS.[facility] Repository 12/13/2017/12/14/19 [id number] Ambulatory [address] ding:CLSP Repository 12/13/2017/12/14/19 [id number] Ambulatory BMSBuilding: [place] 18 [facility] Repository 12/02/2017/12/03/19 [id number] Ambulatory [address] Repository 12/02/2017/12/03/19 [id number] Ambulatory [address] MEDICAL Repository CENTERBuildi ng:NEUSAGHB 11/27/2017 [id number] Ambulatory [facility] ding:LAB Repository 11/27/2017/11/28/19 [id number] Ambulatory BMSBuilding: [place] 18 BMS.[facility] Repository 11/26/2017 [id number] Ambulatory BMSBuilding: [place] BMS.[facility] Repository 11/22/2017 [id number] Ambulatory [facility] ding:LAB.FUT Repository URE 11/15/2017/11/16/19 [id number] Emergency [address] ding:ED Repository 11/12/2017/11/14/19 [id number] Ambulatory [address] Repository 11/08/2017 [id number] Ambulatory [facility] ding:BFHLAB Repository 11/06/2017/11/07/19 [id number] Ambulatory [address] Repository 11/01/2017/11/02/19 [id number] Ambulatory [address] Repository 11/01/2017/11/02/19 [id number] Ambulatory [address] MEDICAL Repository CENTERBuildi ng:NEUSAGHB 10/29/2017 [id number] Ambulatory [facility] ding:CVS Repository 10/29/2017 [id number] Ambulatory BMSBuilding: [place] [facility] Repository 10/29/2017/10/30/19 [id number] Emergency [address] ding:ED Repository 10/28/2017 [id number] Ambulatory BMSBuilding: [place] [facility] Repository 10/27/2017/10/29/19 [id number] White, Emily Ambulatory [address] ding:PCURoom Repository : TOF012Eox: 1 10/27/2017 [id number] White, Emily Ambulatory BMSBuilding: [place] BMS.[facility] Repository 10/27/2017 [id number] White, Emily Ambulatory BMSBuilding: [place] BMS.[facility] Repository 08/07/2017/08/09/19 [id number] Ambulatory [address] Repository 07/15/2017/07/16/19 [id number] Ambulatory [address] Repository 07/09/2017/07/10/19 [id number] Ambulatory [address] Repository 04/29/2017 [id number] Ambulatory [facility] ding:BFHLAB Repository 03/15/2017/03/15/19 [id number] Ambulatory [address] ding:PT Repository PAYERS PAYERS ENCOUNTER GUARANTOR PAYER SUBSCRIBER SOURCE 03/05/2018 TREVOR L Primary TREVOR L [facility] GINTHERDOB: Insurance:MEDICARE A GINTHERDOB: [employer] AND BPolicy Number: [id number] [facility] [id number] [place] Date: [address]Uyk: () 03/05/2018 Secondary TREVOR L [facility] Insurance:[facility] AARP GINTHERDOB: Health System SUPPLEMENTPolicy [id number] Repository Number: [id number] Date: 01/24/2018 TREVOR L Primary TREVOR L [place] [id number] Insurance:MEDICARE GINTHERDOB: [facility] PART A BPolicy Number: [id number] [place] [id number] Repository 20586Yip: 330) Date:2018-01-09 [phone] () 01/24/2018 Secondary TREVOR L [place] Insurance:AARPPolicy GINTHERDOB: Community Number: [id number] Hospital [id number] Repository Date:0110-84-17YD [address], [place] [address]NZ: 01/24/2018 Tertiary NOT GIVENUNK [place] Insurance:SELF PAY [facility] Number: Effective Repository Date:2018-01-24 01/24/2018 TREVOR L Primary TREVOR L [place] [id number] Insurance:MEDICARE GINTHERDOB: Community [place] PART A BPolicy Number: [id number] [id number] Repository 315[address]Cgs: (834) Date:2018-01-09 [phone] () 01/24/2018 Secondary TREVOR L [place] Insurance:AARPPolicy GINTHERDOB: Community Number: [id number] Hospital [id number] Repository Date:4350-23-37NU [address]XLQZQMC, [place] [address]PJ: 01/24/2018 Tertiary NOT GIVENUNK [place] Insurance:SELF PAY [facility] Number: Effective Repository Date:2018-01-09 01/17/2018 TREVOR L Primary TREVOR L [place] [id number] Insurance:MEDICARE GINTHERDOB: Community [place] PART A BPolicy Number: [id number] [id number] Repository [address]25[address]Tfn: (330) Date:2018-01-09 [phone] () 01/17/2018 Secondary TREVOR L [place] Insurance:AARPPolicy GINTHERDOB: Community Number: [id number] Hospital [id number] Repository Date:2205-47-56[address]JMLFRLX, [place] [address]HD: 01/17/2018 Tertiary NOT GIVENUNK [place] Insurance:SELF PAY [facility] Number: Effective Repository Date:2018-01-17 01/17/2018 TREVOR L Primary TREVOR L [place] [id number] Insurance:MEDICARE GINTHERDOB: Community [place] PART A BPolicy Number: [id number], [place] [id number] Repository [address]Dju: (330) Date:[phone] () 01/17/2018 Secondary TREVOR L [place] Insurance:AARPPolicy GINTHERDOB: Community Number: [id number] Hospital [id number] Repository Date:3614-95-62UT [address]BULVWGM, [place] [address]KJ: 01/17/2018 Tertiary NOT GIVENUNK [place] Insurance:SELF PAY [facility] Number: Effective Repository Date:2018-01-09 01/09/2018 TREVOR L Primary TREVOR L [place] [id number] Insurance:MEDICARE GINTHERDOB: Community [place] PART A BPolicy Number: [id number], [place] [id number] Repository [address]Tkz: (330) Date:2017-11-110079 () 01/09/2018 Secondary TREVOR L [place] Insurance:AARPPolicy GINTHERDOB: Community Number: [id number] Hospital [id number] Repository Date:7759-26-21AW [address]QOLTHPH, [place] [address]WO: 01/09/2018 Tertiary NOT GIVENUNK [place] Insurance:SELF PAY [facility] Number: Effective Repository Date:2018-01-07 12/13/2017 TREVOR L Primary TREVOR L [place] [id number] Insurance:MEDICARE GINTHERDOB: Community [place] PART A BPolicy Number: [id number], [place] [id number] Repository [address]Cij: (330) Date:2017-11-270060 () 12/13/2017 Secondary TREVOR L [place] Insurance:AARPPolicy GINTHERDOB: Community Number: [id number] Hospital [id number] Repository Date:7963-43-74GZ [address]EYBFKVP, [place] [address]ZE: 12/13/2017 Tertiary NOT GIVENUNK [place] Insurance:SELF PAY [facility] Number: Effective Repository Date:2017-11-27 12/13/2017 TREVOR L Primary TREVOR L [place] [id number] Insurance:MEDICARE GINTHERDOB: Community [place] PART A BPolicy Number: [id number] [place], [place] [id number] Repository [address]Tyt: (817) Date:2017-11-27 [phone] () 12/13/2017 Secondary TREVOR L [place] Insurance:AARPPolicy GINTHERDOB: Community Number: [id number] Hospital [id number] Repository Date:6280-31-50TG [address]IODMUYE, [place] [address]SN: 12/13/2017 Tertiary NOT GIVENUNK [place] Insurance:SELF PAY [facility] Number: Effective Repository Date:2017-12-13 12/02/2017 TREVOR L Primary TREVOR L [facility] GINTHERDOB: Insurance:MEDICARE A GINTHERDOB: Health System AND BPolicy Number: [id number] [facility] [id number], [place] Date: [address]Mhh: () 12/02/2017 Secondary TREVOR L [facility] Insurance:[facility] AARP GINTHERDOB: Health System SUPPLEMENTPolicy [id number] Repository Number: [id number] Date: 11/27/2017 TREVOR L Primary TREVOR L [place] [id number] Insurance:MEDICARE GINTHERDOB: Community [place] PART A BPolicy Number: [id number], [place] [id number] Repository [address]Nwy: (673) Date:2017-11-27 [phone] () 11/27/2017 Secondary TREVOR L [place] Insurance:AARPPolicy GINTHERDOB: Community Number: [id number] [facility] [id number] Repository Date:8851-54-26CF [address]ZFJJMGL, [place] [address]AE: 11/27/2017 Tertiary NOT GIVENUNK [place] Insurance:SELF PAY [facility] Number: Effective Repository Date:2017-11-27 11/27/2017 TREVOR L Primary TREVOR L [place] [id number] Insurance:MEDICARE GINTHERDOB: Community [place] PART A BPolicy Number: [id number], [place] [id number] Repository [address]Noe: (917) Date:2017-11-259879 () 11/27/2017 Secondary TREVOR L [place] Insurance:AARPPolicy GINTHERDOB: Community Number: [id number] Hospital [id number] Repository Date:7543-99-69EF [address]JIBOPPD, [place] [address]TM: 11/27/2017 Tertiary NOT GIVENUNK [place] Insurance:SELF PAY [facility] Number: Effective Repository Date:2017-11-27 11/26/2017 TREVOR L Primary TREVOR L [place] [id number] Insurance:MEDICARE GINTHERDOB: Community [place] PART A BPolicy Number: [id number], [place] [id number] Repository [address]Zqd: (538) Date:2017-11-261059 () 11/26/2017 Secondary TREVOR L [place] Insurance:AARPPolicy GINTHERDOB: Community Number: [id number] [facility] [id number] Repository Date:0680-32-28FJ [address]DLFHEPF, [place] [address]XU: 11/26/2017 Tertiary NOT GIVENUNK [place] Insurance:SELF PAY [facility] Number: Effective Repository Date:2017-11-26 11/22/2017 TREVOR L Primary TREVOR L [place] [id number] Insurance:MEDICARE GINTHERDOB: Community [place] PART A BPolicy Number: [id number], [place] [id number] Repository [address]Wfh: (864) Date:2017-11-115910 () 11/22/2017 Secondary TREVOR L [place] Insurance:AARPPolicy GINTHERDOB: Community Number: [id number] Hospital [id number] Repository Date:9161-45-37KJ [address]QNPCJBT, [place] [address]FL: 11/22/2017 Tertiary NOT GIVENUNK [place] Insurance:SELF PAY [facility] Number: Effective Repository Date:2017-11-11 11/15/2017 TREVOR L Primary TREVOR L [place] [id number] Insurance:MEDICARE GINTHERDOB: Community [place] PART A BPolicy Number: [id number], [place] [id number] Repository 370[address]Zpr: (823) Date:2017-11-15-0603 () 11/15/2017 Secondary TREVOR L [place] Insurance:AARPPolicy GINTHERDOB: Community Number: [id number] Hospital [id number] Repository Date:4736-14-62GU [address]RHDUGDJ, [place] [address]ET: 11/15/2017 Tertiary NOT GIVENUNK [place] Insurance:SELF PAY [facility] Number: Effective Repository Date:2017-11-15 11/08/2017 TREVOR L Primary TREVOR L [place] [id number] Insurance:MEDICARE GINTHERDOB: Community [place] PART A BPolicy Number: [id number], [place] [id number] Repository [address]Hbi: (330) Date:2017-11-08-5146 () 11/08/2017 Secondary TREVOR L [place] Insurance:AARPPolicy GINTHERDOB: Community Number: [id number] Hospital [id number] Repository Date:4245-65-18OR [address]ZFTASVI, [place] [address]QX: 11/08/2017 Tertiary NOT GIVENUNK [place] Insurance:SELF PAY [facility] Number: Effective Repository Date:2017-11-08 11/01/2017 TREVOR L Primary TREVOR L [facility] GINTHERDOB: Insurance:MEDICARE A GINTHERDOB: Health System [id number] AND BPolicy Number: [id number] Repository [place] [id number] [place], [place] Date: [address]Gap: (HP) 11/01/2017 Secondary TREVOR L [facility] Insurance:[facility] AARP GINTHERDOB: Health System SUPPLEMENTPolicy [id number] Repository Number: [id number] Date: 10/29/2017 TREVOR L Primary Insurance:SELF NOT GIVENUNK [place] [id number] PAY [facility] [place] Number: Effective [place], [place] Date:2017-10-29 Repository 477[address]Oke: (HP) 10/29/2017 TREVOR L Primary TREVOR L [place] [id number] Insurance:MEDICARE GINTHERDOB: Community [place] PART A BPolicy Number: [id number] [place], [place] [id number] Repository 317[address]Ltd: 330) Date:2017-10-29 [phone] () 10/29/2017 Secondary TREVOR L [place] Insurance:AARPPolicy GINTHERDOB: Community Number: [id number] Hospital [id number] Repository Date:6629-89-32AA [address]FDFWKQD, [place] [address]CP: 10/29/2017 Tertiary NOT GIVENUNK [place] Insurance:SELF PAY Community [facility] Number: Effective Repository Date:2017-10-29 10/29/2017 TREVOR L Primary TREVOR L [place] [id number] Insurance:MEDICARE GINTHERDOB: Community [place] PART A BPolicy Number: [id number], [place] [id number] Repository 146[address]Kmz: (568) Date:2017-10-29 [phone] () 10/29/2017 Secondary TREVOR L [place] Insurance:AARPPolicy GINTHERDOB: Community Number: [id number] Hospital [id number] Repository Date:8343-02-46EG [address]NJDQQAL, [place] [address]ZB: 10/29/2017 Tertiary NOT GIVENUNK [place] Insurance:SELF PAY [facility] Number: Effective Repository Date:2017-10-29 10/28/2017 TREVOR L Primary TREVOR L [place] [id number] Insurance:MEDICARE GINTHERDOB: Community [place] PART A BPolicy Number: [id number], [place] [id number] Repository 546[address]Elp: (704) Date:2017-10-270 () 10/28/2017 Secondary TREVOR L [place] Insurance:AARPPolicy GINTHERDOB: Community Number: [id number] Hospital [id number] Repository Date:7098-59-51FV [address]LIJMLXH, [place] [address]NV: 10/28/2017 Tertiary NOT GIVENUNK [place] Insurance:SELF PAY [facility] Number: Effective Repository Date:2017-10-28 10/27/2017 TREVOR L Primary TREVOR L [place] [id number] Insurance:MEDICARE GINTHERDOB: Community [place] PART A BPolicy Number: [id number], [place] [id number] Repository 137[address]Wva: (987) Date:2017-10-274110 () 10/27/2017 Secondary TREVOR L [place] Insurance:AARPPolicy GINTHERDOB: Community Number: [id number] Hospital [id number] Repository Date:4553-05-29KA [address]VXWLOFN, [place] [address]QU: 10/27/2017 Tertiary NOT GIVENUNK [place] Insurance:SELF PAY [facility] Number: Effective Repository Date:2017-10-27 10/27/2017 TREVOR L Primary TREVOR L [place] [id number] Insurance:MEDICARE GINTHERDOB: Community [place] PART A BPolicy Number: [id number], [place] [id number] Repository 565[address]Kzm: (172) Date:2017-10-276 () 10/27/2017 Secondary TREVOR L [place] Insurance:AARPPolicy GINTHERDOB: Community Number: [id number] Hospital [id number] Repository Date:7503-83-66DN [address]AOEYHHT, [place] [address]ET: 10/27/2017 Tertiary NOT GIVENUNK [place] Insurance:SELF PAY Community [facility] Number: Effective Repository Date:2017-10-27 10/27/2017 TREVOR L Primary TREVOR L [place] [id number] Insurance:MEDICARE GINTHERDOB: Community [place] PART A BPolicy Number: [id number], [place] [id number] Repository [address]Pjo: (330) Date:2017-10-27 [phone] () 10/27/2017 Secondary TREVOR L [place] Insurance:AARPPolicy GINTHERDOB: Community Number: [id number] Hospital [id number] Repository Date:5075-52-82BX [address]SEVOFTW, [place] [address]OV: 10/27/2017 Tertiary NOT GIVENUNK [place] Insurance:SELF PAY Community [facility] Number: Effective Repository Date:2017-10-27 04/29/2017 Trevor Primary Trevor GintherDOB: [place] [id number] Insurance:MEDICARE [id number] Community [place] PART A BPolicy Number: [place], [place] [id number] Repository [address]Tgu: Date:2017-04-29 ~33 0-2 (HP) 04/29/2017 Secondary Trevor GintherDOB: [place] Insurance:AARPPolicy [id number] Community Number: [facility] [id number] Repository Date:2710-74-43UM [address]XVBYDKZ, [place] [address]DX: 04/29/2017 Tertiary NOT GIVENUNK [place] Insurance:SELF PAY Community [facility] Number: Effective Repository Date:2017-04-29 03/15/2017 Trevor Primary Trevor GintherDOB: [place] [id number] Insurance:MEDICARE [id number] Community [place] PART A BPolicy Number: [place], [place] [id number] Repository 233[address]Rlo: Date:2015-01-11 ~33 0-2 (HP) 03/15/2017 Secondary Trevor PerezB: [place] Insurance:LISAolicy [id number] Community Number: [facility] [id number] Repository Date:3431-48-84ZR [address]RXZSPTP, [place] [address]KE: 03/15/2017 Tertiary NOT GIVENUNK [place] Insurance:SELF PAY [facility] Number: Effective Repository Date:2017-02-19
== END 2018-01-24 10:32 | disposition home or self-care (01) ==
LOC: EN 07:19 → AC 07:20
PROVIDERS: Family Provider Family Medicine; PCP Family Medicine; Referring Provider Surgery; Visit Provider Surgery
PROC: 0DJD8ZZ Inspection of Lower Intestinal Tract, Via Natural or Artificial Opening Endoscopic (ICD-10-PCS; CPT 45378; principal; 2018-01-24 08:40)
DX: D12.3 Benign neoplasm of transverse colon (principal); D12.8 Benign neoplasm of rectum; K64.2 Third degree hemorrhoids; N40.0 Benign prostatic hyperplasia without lower urinary tract symptoms; K57.30 Diverticulosis of large intestine without perforation or abscess without bleeding; Z80.0 Family history of malignant neoplasm of digestive organs; M19.90 Unspecified osteoarthritis, unspecified site; E07.9 Disorder of thyroid, unspecified; E03.9 Hypothyroidism, unspecified; G47.33 Obstructive sleep apnea (adult) (pediatric); E66.9 Obesity, unspecified; I10 Essential (primary) hypertension; E78.5 Hyperlipidemia, unspecified; I69.844 Monoplegia of lower limb following other cerebrovascular disease affecting left non-dominant side; I69.851 Hemiplegia and hemiparesis following other cerebrovascular disease affecting right dominant side; Z79.82 Long term (current) use of aspirin; Z79.02 Long term (current) use of antithrombotics/antiplatelets; Z79.899 Other long term (current) drug therapy
CPT/HCPCS: 45380; 88305; J7120

== ENCOUNTER → 2018-04-04 11:11 | Outpatient (CLI) | payer MEDICARE, OTHER, SELFPAY ==
[2018-01-24 07:36] VITALS: BMI 29.6
[2018-04-04 11:51] LABS: Absolute Lymphocyte Count 1.89 X10^3/ul (0.83-4.51); Basophil# 0.03 X10^3/uL; Basophil% 0.4 % (0-1); Eosinophil# 0.13 X10^3/uL; Eosinophils% 1.7 % (0-5); Hematocrit 47.5 % (40-54); Hemoglobin 15.8 g/dl (13.0-16.5); Lymphocyte # 1.89 X10^3/ul (4.0); Lymphocyte % 24.1 % (19-41); Mean Corp Hgb Conc 33.3 g/gl (32-36); Mean Corpuscular Hgb 31.6 pg (27.0-32.0); Mean Platelet Vol. 11.6 fl (6.2-12.0); Monocyte# 0.79 X10^3/uL; Monocyte% 10.1 % (0-10); Neutrophil # 4.99 X10^3/uL (2.7-7.7); Neutrophil % 63.4 % (47-70); Platelet Count 145 K/mm3 (150-450); RBC Distribution Width CV 12.6 % (11.6-14.6); RBC Distribution Width SD 42.8 fl (35.1-43.9); White Blood Count 7.9 K/mm3 (4.4-11.0)
[2018-04-04 11:56] LABS: POSITIVE COUNT NO; POSITIVE DIFFERENTIAL NO; POSITIVE MORPHOLOGY NO
[2018-04-04 12:31] LABS: T3 Total - Triiodothyronine 0.69 ng/mL (0.6-1.81)
[2018-04-04 12:44] LABS: CRP < 2.90 mg/L (0.0-3.0); T4 Free Direct 1.11 ng/dL (0.76-1.46); Thyroid Stim Hormone (TSH) 9.78 uIU/mL (0.358-3.74)
== END ==
PROVIDERS: Family Provider Family Medicine; PCP Family Medicine; Referring Provider Family Medicine; Visit Provider Family Medicine
DX: E05.90 Thyrotoxicosis, unspecified without thyrotoxic crisis or storm (principal); I63.9 Cerebral infarction, unspecified; I10 Essential (primary) hypertension
CPT/HCPCS: 36415; 84439; 84443; 84480; 85025; 86140

== ENCOUNTER → 2018-06-27 | Outpatient (CLI) | payer MEDICARE, OTHER, SELFPAY ==
[2018-05-29 15:13] VITALS: BMI 29.7
[2018-06-27 11:08] LABS: Free T3 2.3 pg/mL (2.18-3.98); Thyroid Stim Hormone (TSH) 4.12 uIU/mL (0.358-3.74)
== END | disposition home or self-care (01) ==
LOC: LAB 09:07
PROVIDERS: Family Provider Family Medicine; PCP Family Medicine; Referring Provider Family Medicine; Visit Provider Family Medicine
DX: E03.9 Hypothyroidism, unspecified (principal)
CPT/HCPCS: 36415; 84439; 84443; 84481

== ENCOUNTER → 2018-09-18 13:49 | Outpatient (CLI) | payer MEDICARE, OTHER, SELFPAY ==
[2018-05-29 15:13] VITALS: BMI 29.7
[2018-09-18 15:58] LABS: Free T3 2.4 pg/mL (2.18-3.98); T4 Free Direct 1.32 ng/dL (0.76-1.46); Thyroid Stim Hormone (TSH) 0.43 uIU/mL (0.358-3.74)
== END ==
PROVIDERS: Family Provider Family Medicine; PCP Family Medicine; Referring Provider Family Medicine; Visit Provider Family Medicine
DX: E05.90 Thyrotoxicosis, unspecified without thyrotoxic crisis or storm (principal)
CPT/HCPCS: 36415; 84439; 84443; 84481

== ENCOUNTER 2018-10-20 17:02 | Emergency (ER) | payer MEDICARE, OTHER, SELFPAY ==
[2018-05-29 15:13] VITALS: BMI 29.7
[2018-10-20 17:04] VITALS: BP 80/49; PULSE 44; RESP 16; TEMP 36.6; O2SAT 96; BMI 28.7
--- NOTE | 2018-10-20 17:35 | RAD_ITS ---
STUDY: X-RAY - LEFT HAND REASON FOR EXAM: Male, 68 years old. Injured second and third digits with table saw. TECHNIQUE: 3 view(s) of the hand. COMPARISON: None. FINDINGS: Normal radiocarpal articulation. Normal distal radioulnar joint. Normal visualized carpal bones. There is degenerative joint disease of the scaphotrapezium / trapezoid articulation. The remainder of the carpal articulations are normal. Normal carpometacarpal articulation of the thumb. Normal second through fifth carpometacarpal joints. Normal metacarpi. Normal metacarpophalangeal joint of the thumb. Normal interphalangeal joint of the thumb. Normal proximal and distal phalanges of the thumb. Normal metacarpophalangeal joints of the second through fifth fingers. There is a fracture through the tuft of the second digit. This fracture tuft of the third digit. Associated soft tissue disruption. Normal proximal and distal interphalangeal joints of the second through fifth fingers. Otherwise normal phalanges of the second through fifth fingers. The soft tissue structures are unremarkable. RAD/Hand Min 3 Views IMPRESSION: 1. Fractures of the distal phalanges of the second and third digits with associated soft tissue disruption. 2. Minimal degenerative changes of the left wrist. Electronically Signed: Oscar Epps DO at 17:52 EDT Tel [phone], Service support ,
--- NOTE | 2018-10-20 17:36 | ED.VISSUMM ---
- ER Visit Summary Date of Service: 10/20/18 Chief Complaint: Laceration left hand History of Present Illness: The patient is a 68 M with laceration to left hand. Patient was using a saw and accidentally cut his first and second fingers. This occurred just prior to arrival. He is right-handed. Last tetanus is unknown. Physical Examination: Vitals are stable. Patient is afebrile. Alert no acute distress. HEENT exam is unremarkable. Neck is supple. Lungs are clear and equal bilaterally. Heart is regular rate and rhythm. Extremities: distal first and second left finger 1cm laceration. Second finger distal nail is avulsed. First finger laceration through mid nail. Normal sensation. Tendon function is normal. Skin is warm and dry. No focal neurologic deficit. Remainder of exam is unremarkable. Emergency Department Course and Treatment: Patient was given tetanus IM. Left hand xray shows fractures of the distal phalanges of the second and third digits with associated soft tissue disruption. Wounds were copiously irrigated. Digital block performed in first and second finger. 2, 5-0 simple sutures in each finger. Discussed with Dr. Abad for follow-up. He is given prescription for doxycycline. He will follow-up with Dr. Abad. Advised return to ED if worsening complaints. Disposition: Discharge home Impression: Left first and second finger laceration with distal phalanx fractures, laceration repair This note was generated with [employer] dictation software. It may contain incorrect words, spelling, and punctuation that were not noted in review of the chart prior to signing ED Disposition - Plan for ED Patient: Instructions: LACERATION, Hand Prescriptions: Doxycycline 100 mg PO BID #20 cap Prescription Printed Hydrocodone Bitart/Apap 5-325 [[place] 5MG-325MG] 1 tab PO Q6H PRN PRN 3 Days #10 tab PRN Reason: Pain Prescription Printed Referrals: Hardy Abad MD [STAFF PHYSICIAN] - Liseth Del Valle DO [Primary Care Provider] -
[2018-10-20] MEDS: Diphth,Pertuss(Acell),Tet Vac 0.5 ML Vial IM (17:45)
--- NOTE | 2018-10-20 18:39 | DCINST.ED_ITS ---
ED Disposition - Plan for ED Patient: Instructions: LACERATION, Hand Prescriptions: Doxycycline 100 mg PO BID #20 capsule Hydrocodone Bitart/Apap 5-325 [[place] 5MG-325MG] 1 tablet PO Q6H PRN PRN 3 Days #10 tablet PRN Reason: Pain Referrals: Liseth Del Valle DO [Primary Care Provider] - Hardy Abad MD [STAFF PHYSICIAN] -
[2018-10-20] MEDS: Doxycycline 100 MG CAPSULE PO (18:50)
[2018-10-20 19:35] VITALS: BP 133/80; PULSE 78; RESP 16; O2SAT 100
== END 2018-10-20 19:37 | disposition home or self-care (01) ==
LOC: ED 17:52
PROVIDERS: Emergency Provider Emergency Medicine; Family Provider Family Medicine; PCP Family Medicine
DX: S61.112A Laceration without foreign body of left thumb with damage to nail, initial encounter (principal); S62.661B Nondisplaced fracture of distal phalanx of left index finger, initial encounter for open fracture; S62.663A Nondisplaced fracture of distal phalanx of left middle finger, initial encounter for closed fracture; Z23 Encounter for immunization; W29.3XXA Contact with powered garden and outdoor hand tools and machinery, initial encounter; Y93.89 Activity, other specified; Y92.89 Other specified places as the place of occurrence of the external cause; Y99.8 Other external cause status
CPT/HCPCS: 12001; 73130; 90471; 90715; 99285

== ENCOUNTER 2018-10-21 12:37 | Day surgery (SDC) | payer MEDICARE, OTHER, SELFPAY ==
[2018-10-21] VITALS (9 sets, daily range): BP systolic 90–131; BP diastolic 54–79; PULSE 47–50; RESP 16; TEMP 36.3–36.7; O2SAT 92–98; BMI 28.7; BMI 29.2
[2018-10-21] MEDS: Lactated Ringers 1,000 ML 100 ML IV (13:37)
--- NOTE | 2018-10-21 14:30 | BON_PTH ---
PATIENT: DONNA COLEMAN LOC: [facility] [place][id number] AGE/SX: 68/M ROOM: RE10/21/[address]: Dr. Hardy Abad MD : 1950 BED: DIS: 10/21/2018 SPEC #: [id number] RECD: 10/21/18 16:20 STATUS: EDI REKaylee #: [id number] TESSY: 10/21/18 14:[address]: Hardy Abad DEPT: SURGICAL PATHOLOGY RECD BY: Mika Cochran ENTERED: 10/22/18 10:01 SP TYPE: Bone OTHR DR: Dr. Liseth Del Valle DO Tissues: A - Bone of hand, NOS B - Bone of hand, NOS Procedures: Decalcification bone/plaque Surgery Specimen Level III HEADER OPERATION: Debridement distal phalanx fracture with partial ostectomy PRE-OP DIAGNOSIS: Table saw injury to left index fingertip and long fingertip; open fracture distal phalanx tuft left index and long fingers; laceration left index and long fingers with damage to nail; nail bed injury left index and long fingers; subungual hematoma left index and long fingers TISSUE SUBMITTED: A - Bone left index finger, B - Bone left long finger MICROSCOPIC DIAGNOSIS A. Bone left index finger, biopsy: A piece of bone and attached fibroconnective tissue with reactive changes. B. Bone left long finger, biopsy: A piece of bone and attached fibroconnective tissue with reactive changes. ANGEL LUIS:adama 10/27/18 MICROSCOPIC DESCRIPTION Slides are reviewed. GROSS DESCRIPTION A - Received in fixative is one container labeled with the patient's name and designated bone left index finger. The specimen consists of a piece of bone measuring 0.5 x 0.4 x 0.3 cm. The entire specimen is submitted in one cassette after decalcification. B - Received in fixative is one container labeled with the patient's name and designated bone left long finger. The specimen consists of a piece of bone measuring 0.4 x 0.3 x 0.3 cm. The entire specimen is submitted in one cassette after decalcification. / ANGEL LUIS:adama 10/22/18 TC:5 CPT: 13910 x2, 84557 x2
--- NOTE | 2018-10-21 14:38 | PCM.HP.BLA ---
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 Accompanied by: Is patient in pain?: Yes (LEFT HAND INDEX FINGER AND LONG FINGER DULL ACHING) Pain scale (1-10): 2 Allergies adhesive tape Allergy (Mild, Verified 10/21/18 11:21) Unknown methimazole [From Tapazole] Allergy (Mild, Verified 10/21/18 11:21) Unknown Sulfa (Sulfonamide Antibiotics) Allergy (Verified 10/21/18 11:21) PT CAN'T REMEMBER Medications Triamcinolone 0.1% Ointment [Kenalog] 1 applic TOPICAL DAILY 07/03/16 [History Confirmed 10/21/18] Atorvastatin Calcium [Lipitor] 40 mg PO DAILY #90 tab 07/05/16 [Rx Confirmed 10/21/18] Clopidogrel Bisulfate [Plavix] 75 mg PO DAILY #30 tab 10/28/17 [Rx Confirmed 10/21/18] cholecalciferol (vitamin D3) 2,000 unit capsule 2,000 unit PO DAILY 11/27/17 [History Confirmed 10/21/18] levothyroxine 175 mcg tablet 175 mcg PO DAILY 11/27/17 [History Confirmed 10/21/18] multivitamin tablet 1 tab PO DAILY 11/27/17 [History Confirmed 10/21/18] losartan 50 mg tablet 50 mg PO DAILY 30 Days #30 tab 05/29/18 [History Confirmed 10/21/18] magnesium 400 mg (as magnesium oxide) capsule 400 mg PO DAILY cap 05/29/18 [History Confirmed 10/21/18] Doxycycline 100 mg PO BID #20 cap 10/20/18 [Rx Confirmed 10/21/18] Hydrocodone Bitart/Apap 5-325 [[place] 5MG-325MG] 1 tab PO Q6H PRN PRN 3 Days #10 tab 10/20/18 [Rx Confirmed 10/21/18] PFSH Medical History Cryptogenic stroke (Chronic) Right bundle branch block (Chronic) Essential (primary) hypertension (Chronic) HLD (hyperlipidemia) (Chronic) CVA (cerebral vascular accident) (Chronic 06/2016) TIA (transient ischemic attack) (Chronic 10/2017) Back problem (Acute) Bone fracture (Acute) Carpal tunnel syndrome (Acute) History of pneumonia (Acute) Seasonal allergies (Acute) Thyroid disease (Acute) Vision problems (Acute) Hypertension (Chronic) Hemorrhoid (Chronic) Hypothyroidism (Chronic) Obesity (Chronic) Obstructive sleep apnea (Chronic) History of blood clots (Resolved) Rectal bleed (Resolved) Fatigue (Inactive) Surgical History Status post placement of implantable loop recorder (Chronic 12/13/17) H/O knee surgery (Resolved) History of carpal tunnel release (Resolved) History of tonsillectomy (Resolved) Hx of LASIK (Resolved) Family History Mother CVA (cerebral vascular accident) Cancer Colon cancer Thyroid disorder Father Heart disease Hypertension Cancer Diabetes Brother Myocardial infarction from [place] Other Anxiety and depression Arthritis Bowel disease Psychiatric care Skin cancer Social History (Updated 10/21/18 @ 14:15 by Hardy Abad MD) Smoking Status: Never smoker second hand exposure: No alcohol intake: never substance use type: does not use caffeine: Yes frequency: does not exercise seatbelt use: always additional social history: DOES NOT USE ASPIRIN DOES NOT USE IBUPROFEN HPI evaluation distal phalanx tuft fractures and nail bed injuries left index finger and left long finger from table saw injury: Details: HISTORY OF PRESENT ILLNESS 68 year old man presents with injury to his left index finger tip and left long finger tip that he sustained from a table saw injury on 10/20/18. He went to the ED. X-ray showed fractures of the (wendy) distal phalanges of the second and third digits with associated soft tissue disruption. The wounds were cleansed in the ED and some volar tip lacerations were suture repaired. The fingers were splinted. He was discharged on Doxycycline and [place]. He is right hand dominant. He presents today for further evaluation and treatment. REVIEW OF SYSTEMS General - Denies fever, fatigue, and weight loss. Eyes - Denies cataracts and glaucoma. ENT - Denies nasal congestion and sore throat. Has chronic sinus problems. Endocrine - Denies excessive thirst and urination. Has thyroid disease. Skin - Denies suspicious lesions and skin cancer. Musculoskeletal - Has joint pain and back pain. Denies joint stiffness, weakness of muscles and joints, and arthritis. Has distal phalanx tuft fractures left index finger and left long finger. Has associated nail bed injury and subungual hematoma. Neuro - Denies headaches. Has some lightheadedness. Cardiovascular - Denies chest pain, fatigue, and shortness of breath with exertion. Has some lightheadedness. Psych - Denies anxiety and depression. Respiratory - Denies chronic cough and shortness of breath. Gastrointestinal - Denies nausea, vomiting, diarrhea, and constipation. Hematologic - Denies abnormal bruising and bleeding. Genitourinary - Denies hematuria. Has urinary frequency. PHYSICAL EXAMINATION General - Alert and Oriented. HEENT - PERRL. EOMI. Throat is clear. Neck - Supple and nontender. No cervical adenopathy. Lungs - Clear to auscultation. Heart - Regular rate and rhythm. Abdomen - Soft and nondistended. Extremities - FROM right upper extremity. No axillary adenopathy. Radial pulses are palpable. He is right hand dominant. On the left hand involving the index finger, there is evidence of a nail bed injury and associated subungual hematoma. He can flex and extend the finger. Some difficulty at the DIP joint secondary to pain and swelling. There is a sutured laceration on volar tip extending to nail complex. Measures 1.5 cm. On the left hand involving the long finger, there is evidence of a nail bed injury and associated subungual hematoma. He can flex and extend the finger. Some difficulty at the DIP joint secondary to pain and swelling. There is a sutured laceration on volar tip extending to nail complex. Measures 1.5 cm. Neuro - CN II-XII grossly intact. Psych - Normal mood and affect. ASSESSMENT 1. Table saw injury to left index finger tip and left long finger tip. 2. Open fracture distal phalanx tuft left index finger. 3. Open fracture distal phalanx tuft left long finger. 4. Laceration left index finger with damage to nail. 5. Laceration left long finger with damage to nail. 6. Nail bed injury left index finger. 7. Nail bed injury left long finger. 8. Subungual hematoma left index finger. 9. Subungual hematoma left long finger. PLAN X-ray reviewed. Distal phalanx tuft fractures noted on left index finger and left long finger. With the extent of the trauma, the patient is at increased risk of osteomyelitis. He is currently on Doxycycline. Recommend operative exploration of the fingertip injuries. Will proceed with debridement of the tuft fractures with partial ostectomy to evaluate for osteomyelitis. Also the residual bony fragments can become sources of chronic pain in the future that would need excision at that time. It would be easier and safer to debride the residual bony fragments now instead of possibly later. Will irrigate and evacuate and hematoma present that can lead to infection as well. With the fracture, there is an associated nail bed injury that will need to be repaired. Soft tissue coverage over the bone is important to help minimize osteomyelitis. I doubt a nail bed graft will be necessary. I should be able to close the nail bed wound even if there is some soft tissue loss from the nature of the table saw injury. This may shorten the finger a little bit. Should be able to preserve the proximal nail at least. If there is too severe soft tissue damage from the oscillation nature of the table saw, the only way to cover the exposed bone would be a two stage thenar flap. A one stage revision amputation is another option. Surgery will be done urgently today to help cleanse the wound and to debride the wound to help minimize osteomyelitis. Surgery will be done on an outpatient basis under digital tourniquet control with IV sedation. Patient was informed of the risks and complications of the procedure including alternatives to surgery. These were discussed with the patient personally. Patient voices understanding and wishes to proceed. Some of the risks and complications were included in a form from the [place] [employer]. Some of the risks and complications that were discussed included but were not inclusive of failure to diagnose including symptom relief, pain, infection, numbness, stiffness, loss of digit, RSD (CRPS), need for further surgery, contracture, and wound healing problems. After surgery, will have tip splints to help with pain relief. Range of motion of his fingers will be encouraged. If he develops some stiffness in his left hand, will set him up at OT for range of motion exercises, strengthening, and edema management.
[2018-10-21] MEDS: Mupirocin Ointment 22gm Tube 1 APPLIC (16:04)
--- NOTE | 2018-10-21 16:11 | OP.PCM_ITS ---
Report of Operation Date of Procedure: 10/21/18 Pre-Operative Diagnosis: 1. Table saw injury to left index finger tip and left long finger tip. 2. Open fracture distal phalanx tuft left index finger. 3. Open fracture distal phalanx tuft left long finger. 4. Laceration left index finger with damage to nail. 5. Laceration left long finger with damage to nail. 6. Nail bed injury left index finger. 7. Nail bed injury left long finger. 8. Subungual hematoma left index finger. 9. Subungual hematoma left long finger. Post-Operative Diagnosis: Same. Surgery/Procedure Performed:: 1. Surgical preparation left index finger with excisional debridement distal phalanx tuft fracture with partial ostectomy for osteomyelitis. 2. Surgical preparation left long finger with excisional debridement distal phalanx tuft fracture with partial ostectomy for osteomye litis. 3. Repair nail bed injury left index finger. 4. Repair nail bed injury left long finger. 5. Drainage subungual hematoma left index finger. 6. Drainage subungual hematoma left long finger. Description of Surgical Findings:: 68 year old man presents with injury to his left index finger tip and left long finger tip that he sustained from a table saw injury on 10/20/18. He went to the ED. X-ray showed fractures of the (wendy) distal phalanges of the second and third digits with associated soft tissue disruption. The wounds were cleansed in the ED and some volar tip lacerations were suture repaired. The fingers were splinted. He was discharged on Doxycycline and [place]. He is right hand dominant. Patient was informed of the risks and complications of the procedure including alternatives to surgery. These were discussed with the patient personally. Patient voices understanding and wishes to proceed. Some of the risks and complications were included in a form from the [place] [employer].Some of the risks and complications that were discussed included but were not inclusive of failure to diagnose including symptom relief, pain, infection, numbness, stiffness, loss of digit, RSD (CRPS), need for further surgery, contracture, and wound healing problems. Total tourniquet time left index finger - 32 minutes. Total tourniquet time left long finger - 28 minutes. 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 Specimen's removed: 1. Distal phalanx bone left index finger to Pathology and Microbiology. 2. Soft tissue left index finger to Microbiology. 3. Distal phalanx bone left long finger to Pathology and Microbiology. 4. Soft tissue left long finger to Microbiology. Drains: None. Estimated Blood Loss (mL): 10 ml. Description of Procedure: Patient was taken to OR in supine position and was given IV sedation. The left upper extremity was prepped and draped in the usual fashion. SCD's were placed for DVT prophylaxis. Perioperative antibiotics were given intravenously. Using xylocaine with epinephrine, a digital metacarpal block was infiltrated for both the left index finger and the left long finger. A digital tourniquet was applied to the left index finger. Under loupe magnification, I removed the nail plate to the left index finger. There was a congealed hematoma present that extended through the stellate nail bed injury and involved the distal phalanx. The hematoma was drained and the congealed portion of the hematoma was excised and debrided. Using an elevator, I elevated the remaining nail bed off the distal phalanx. Some loose pieces of bone were excised and debrided. Using a rongeur, I excised the distal portion of the distal phalanx to evaluate for osteomyelitis. A rasp was used to smooth out the bony edge. The stellate nail bed injury was swollen with presence of exudate which was excised and debrided. From the pressure of the subungual hematoma, there was some loss of nail bed and the bone was exposed. I shortened the nail bed a little bit to minimize a floppy finger tip. I wanted the soft tissue to be close to the bone to minimize this floppiness. By shortening the nail bed a little bit, I was able to repair the nail bed without having to resort to a nail bed graft. This complex nail bed repair was done with 7-0 Vicryl simple interrupted sutures. Since I was able to repair the nail bed, a two stage thenar flap or revision amputation will not be necessary at this time. I cleaned off any residual blood and debris from the nail plate and placed the nail plate back on the finger and underneath the eponychial fold. The nail plate was secured with 5-0 Nylon simple interrupted sutures. There was a laceration on the volar tip which was debrided and repaired with 5-0 Nylon simple interrupted sutures. It measured 1.5 cm. Half the bone was sent to Pathology for analysis to rule out carcinoma and to evaluate for osteomyelitis and half the bone was sent to Microbiology for culture. The soft tissue was sent to Microbiology for culture as well. A positive culture will necessitate antibiotic therapy. The tourniquet was released after 32 minutes. Hemostasis was obtained with gentle pressure and elevation. A digital tourniquet was then applied to the left long finger. Under loupe magnification, I removed the nail plate to the left long finger. There was a congealed hematoma present that extended through the stellate nail bed injury and involved the distal phalanx. The hematoma was drained and the congealed portion of the hematoma was excised and debrided. Using an elevator, I elevated the remaining nail bed off the distal phalanx. Some loose pieces of bone were excised and debrided. Using a rongeur, I excised the distal portion of the distal phalanx to evaluate for osteomyelitis. A rasp was used to smooth out the bony edge. The stellate nail bed injury was swollen with presence of exudate which was excised and debrided. From the pressure of the subungual hematoma, there was some loss of nail bed and the bone was exposed. I shortened the nail bed a little bit to minimize a floppy finger tip. I wanted the soft tissue to be close to the bone to minimize this floppiness. By shortening the nail bed a little bit, I was able to repair the nail bed without having to resort to a nail bed graft. This complex nail bed repair was done with 7-0 Vicryl simple interrupted sutures. Since I was able to repair the nail bed, a two stage thenar flap or revision amputation will not be necessary at this time. I cleaned off any residual blood and debris from the nail plate and placed the nail plate back on the finger and underneath the eponychial fold. The nail plate was secured with 5-0 Nylon simple interrupted sutures. There was a laceration on the volar tip which was debrided and repaired with 5-0 Nylon simple interrupted sutures. It measured 1.5 cm. Half the bone was sent to P athology for analysis to rule out carcinoma and to evaluate for osteomyelitis and half the bone was sent to Microbiology for culture. The soft tissue was sent to Microbiology for culture as well. A positive culture will necessitate antibiotic therapy. The tourniquet was released after 28 minutes. Hemostasis was obtained with gentle pressure and elevation. Antibiotic ointment was applied to the finger tips followed by Xeroform gauze and 2x2 gauze followed by 2 inch Brent wrap. With a bulky surgical dressing at present, he won't need the splint until after the first dressing change in the office. He can get that in the office if necessary as a buffer against bumping the tips of the involved fingers. Patient tolerated the procedure well and was sent to PACU in satisfactory condition. Patient will be sent home on antibiotics and pain medication. He will keep his right hand elevated during the initial postop period. He will wear a plastic bag over his right hand when showering. Patient will followup in a week for a wound check and for discussion of the pathology report and for discussion of the Microbiology report. Will remove the sutures in 2-3 weeks. Depending on his degree of stiffness postop, may need OT for range of motion exercises, strengthening, and edema management. Grafts/Implants Used: None. - Complications None. - Admit VTE Documentation VTE Present on Admission: No VTE Mechan Device Prophylaxis: SCD's VTE Pharm Prophylaxis ordered?: No Code Visit Surgery Charges CPT - 11330 ICD-10 - W31.2xxA, S62.631B, S61.311A, S69.92xA, S60.122A 41686 W31.2xxA, S61.311A, S69.92xA, S62.631B, S60.122A 23022 W31.2xxA, S60.122A, S61.311A, S69.92xA, S62.631B [id number] W31.2xxA, S62.633B, S61.313A, S69.92xA, S60.132A 09395 W31.2xxA, S61.313A, S69.92xA, S62.633B, S60.132A [id number] W31.2xxA, S60.132A, S61.313A, S69.92xA, S62.633B
--- NOTE | 2018-10-21 16:27 | DCINST_ITS ---
You will use the following diet at home:: No restrictions Discharge Activity: May not drive while taking narcotic pain medications., May Shower - wear plastic bag over left hand when showering., - - keep left hand elevated. no lifting with left hand. May shower in (days): 1 - wear plastic bag over left hand when showering. May resume sexual activity in: No Restrictions Weight Bearing Status: Weight bearing as tolerated Lifting Restrictions: no lifting with left hand. Keep extremity elevated above heart level: Left Arm Call your doctor if your incision/area has: Continuous Slow Oozing, Sudden Increased Bleeding, Increased Pain/ Swelling, Increased Redness, Foul Smelling Discharge, Swelling at the incision site Call your doctor if you observe: Fever of 101 or Higher, Coldness, Increased Pain, Shortness of breath, Chest pain, Calf discomfort, Uncontrolled pain Change Dressing in (Days):: 7 - will change dressing in office. Cleanse incision/area with: - - wear plastic bag over left hand when showering. Additional Instructions: Has Doxycycline at home that he will continue po stoperatively. Allergies/Adverse Reactions: Allergies adhesive tape Allergy (Mild, Verified 10/21/18 11:21) Unknown methimazole [From Tapazole] Allergy (Mild, Verified 10/21/18 11:21) Unknown Sulfa (Sulfonamide Antibiotics) Allergy (Verified 10/21/18 11:21) PT CAN'T REMEMBER Medications to take at Discharge Triamcinolone 0.1% Ointment [Kenalog] 1 applic TOPICAL DAILY 07/03/16 Atorvastatin Calcium [Lipitor] 40 mg PO DAILY #90 tab 07/05/16 Clopidogrel Bisulfate [Plavix] 75 mg PO DAILY #30 tab 10/28/17 cholecalciferol (vitamin D3) 2,000 unit capsule 2,000 unit PO DAILY 11/27/17 levothyroxine 175 mcg tablet 175 mcg PO DAILY 11/27/17 multivitamin tablet 1 tab PO DAILY 11/27/17 losartan 50 mg tablet 50 mg PO DAILY 30 Days #30 tab 05/29/18 magnesium 400 mg (as magnesium oxide) capsule 400 mg PO DAILY cap 05/29/18 Doxycycline 100 mg PO BID #20 cap 10/20/18 Hydrocodone Bitart/Apap 5-325 [[place] 5/325] 1 tab PO Q6H PRN PRN 3 Days #10 tab 10/20/18 HYDROmorphone tablet [Dilaudid] 2 mg PO Q4H PRN PRN 7 Days #40 tab 10/21/18 The following prescriptions were given: HYDROmorphone tablet [Dilaudid] 2 mg PO Q4H PRN PRN 7 Days #40 tab PRN Reason: Pain Prescription Printed Primary Care Physician: Liseth Del Valle DO [Primary Care Provider] - Test Results: Test results from this visit will be discussed in further detail at your follow- up appointment, if applicable. Please Follow Up With: Hardy Abad MD When: one week. call [phone] for appt. Proposed Discharge Date: 10/21/18
== END 2018-10-21 17:47 | disposition home or self-care (01) ==
LOC: SDC 12:40 → AC 12:40
PROVIDERS: Family Provider Family Medicine; PCP Family Medicine; Referring Provider Surgery; Visit Provider Surgery
PROC: (CPT 11740; principal; 2018-10-21 14:15)
DX: S62.661B Nondisplaced fracture of distal phalanx of left index finger, initial encounter for open fracture (principal); S62.663B Nondisplaced fracture of distal phalanx of left middle finger, initial encounter for open fracture; S60.122A Contusion of left index finger with damage to nail, initial encounter; S60.132A Contusion of left middle finger with damage to nail, initial encounter; I10 Essential (primary) hypertension; E78.5 Hyperlipidemia, unspecified; E03.9 Hypothyroidism, unspecified; E66.9 Obesity, unspecified; Z68.29 Body mass index [BMI] 29.0-29.9, adult; Z86.73 Personal history of transient ischemic attack (TIA), and cerebral infarction without residual deficits; Z79.02 Long term (current) use of antithrombotics/antiplatelets; Z79.899 Other long term (current) drug therapy; W29.3XXA Contact with powered garden and outdoor hand tools and machinery, initial encounter; Y93.89 Activity, other specified; Y92.89 Other specified places as the place of occurrence of the external cause; Y99.8 Other external cause status
CPT/HCPCS: 11740; 11760; 12002; 26236; 87070; 87075; 87077; 87102; 87176; 87186; 87205; 87206; 88304; 88311; J7120; J2405

== ENCOUNTER → 2019-02-18 11:18 | Outpatient (CLI) | payer MEDICARE, OTHER, SELFPAY ==
[2018-05-29 15:13] VITALS: BMI 29.7
[2019-01-15 15:37] VITALS: BMI 29.2
[2019-02-18 15:39] LABS: Absolute Lymphocyte Count 1.95 X10^3/uL (0.83-4.51); Absolute Neutrophil Count 3.3 X10^3/uL (2.0-7.7); Basophil# 0.03 X10^3/uL; Basophil% 0.5 % (0-1); Eosinophil# 0.14 X10^3/uL; Eosinophils% 2.3 % (0-5); Hematocrit 46.7 % (40-54); Hemoglobin 15.4 g/dL (13.0-16.5); Lymphocyte # 1.95 X10^3/ul (4.0); Mean Corpuscular Hgb 32.1 pg (27.0-32.0); Mean Corpuscular Volume 97.3 fL (80-94); Mean Platelet Vol. 11.3 fl (6.2-12.0); Monocyte% 9.8 % (0-10); NRBC Flagged by Analyzer 0 % (0-5); Neutrophil # 3.34 X10^3/uL (2.7-7.7); Neutrophil % 54.7 % (47-70); Platelet Count 149 K/mm3 (150-450); White Blood Count 6.1 K/mm3 (4.4-11.0)
[2019-02-18 16:05] LABS: AST(SGOT) 23 U/L (15-37); Alanine Aminotransfer ALT/SGPT 38 U/L (16-61); Albumin, Serum 3.4 g/dL (3.2-5.0); Alkaline Phosphatase 42 U/L (45-117); Anion Gap 6 (5-15); BUN 20 mg/dL (7-18); BUN/Creat Ratio 18.3 RATIO (10-20); Calcium,Total 8.4 mg/dL (8.5-10.1); Chloride 105 mmol/L (98-107); Cholesterol 139 mg/dL (200); Creatinine, Serum 1.09 mg/dL (0.70-1.30); EST Glomerular Filtration Rate 71 mL/min (>60); Est Glom Filt Rate - Afr Amer 86 mL/min (>60); Free T3 2.2 pg/mL (2.18-3.98); Globulin 3.4 g/dL (2.2-4.2); Glucose 95 mg/dL (74-106); High Density Lipoprotein 34 mg/dL; Potassium 3.7 mmol/L (3.5-5.1); Protein, Total 6.8 g/dL (6.4-8.2); Sodium Level 140 mmol/L (136-145); T4 Free Direct 1.23 ng/dL (0.76-1.46); Thyroid Stim Hormone (TSH) 2.95 uIU/mL (0.358-3.74); Triglycerides 175 mg/dL; Very Low Density Lipoprotein 35 mg/dL (5-40)
== END ==
PROVIDERS: Family Provider Family Medicine; PCP Family Medicine; Visit Provider Family Medicine
DX: E89.0 Postprocedural hypothyroidism (principal); I10 Essential (primary) hypertension; Z12.5 Encounter for screening for malignant neoplasm of prostate; Z51.81 Encounter for therapeutic drug level monitoring
CPT/HCPCS: 36415; 80053; 80061; 84153; 84439; 84443; 84481; 85025; G0103

== ENCOUNTER → 2019-02-26 14:34 | Outpatient (CLI) | payer MEDICARE, OTHER, SELFPAY ==
[2019-01-15 15:37] VITALS: BMI 29.2
[2019-02-27 09:01] LABS: Hepatitis C Antibody Non-Reactive (Nonreactive)
[2019-02-28 15:24] LABS: V-Zoster IgG (Immunity) 2000 index (Immune >165)
== END ==
PROVIDERS: PCP Family Medicine; Visit Provider Family Medicine
DX: Z01.84 Encounter for antibody response examination (principal); Z11.59 Encounter for screening for other viral diseases
CPT/HCPCS: 36415; 86787; 86803

== ENCOUNTER → 2019-08-04 | Outpatient (CLI) | payer MEDICARE, OTHER, SELFPAY ==
[2019-05-25 14:12] VITALS: BMI 38.6
[2019-08-05 06:23] LABS: SAR-COV-2 IGG ANTIBODY Negative (Negative)
== END | disposition home or self-care (01) ==
LOC: LAB 05:58
PROVIDERS: PCP Family Medicine; Referring Provider Family Medicine; Visit Provider Family Medicine
DX: Z20.828 Contact with and (suspected) exposure to other viral communicable diseases (principal)
CPT/HCPCS: 86769; G2023

== ENCOUNTER 2019-11-16 14:03 | Emergency (ER) | payer MEDICARE, OTHER, SELFPAY ==
[2019-05-25 14:12] VITALS: BMI 38.6
[2019-11-16 14:05] VITALS: BP 161/96; PULSE 68; RESP 17; TEMP 36.6; O2SAT 97; BMI 31.6
[2019-11-16 14:11] VITALS: BP 161/96; PULSE 73; RESP 17; TEMP 36.6; O2SAT 97
--- NOTE | 2019-11-16 14:39 | EKG12_ITS ---
Test Reason : FATIGUE Blood Pressure : / mmHG Vent. Rate : 062 BPM Atrial Rate : 062 BPM P-R Int : 204 ms QRS Dur : 148 ms QT Int : 448 ms P-R-T Axes : 026 -27 -01 degrees QTc Int : 454 ms Normal sinus rhythm Right bundle branch block Abnormal ECG Confirmed by DARRON URRUTIA, SENG ([id number]), editor trade journal [employer]UEL SQUIRES ([id number]) on 11/18/2019 10:12:20 AM Referred By: DA Confirmed By:SENG ROB MD
--- NOTE | 2019-11-16 14:39 | RAD_ITS ---
STUDY: X-RAY CHEST REASON FOR EXAM: Male, 69 years old. CHEST PAIN AND FATIGUE. TECHNIQUE: Frontal view COMPARISON: 11/15/2017 FINDINGS: The lungs are clear and expanded. There is no demonstrated pleural abnormality. Normal size heart. Normal mediastinum and emelyn. Normal visualized pulmonary arteries. Normal visualized aortic arch and descending thoracic aorta. Degenerative changes of the thoracic spine. Normal visualized ribs, clavicles, and shoulders. There is no demonstrated abnormality of the visualized soft tissue structures of the upper abdomen. RAD/Chest 1 View (Portable) IMPRESSION: Normal x-ray examination of the chest. Electronically Signed: Tip Miner DO at 15:22 EDT Tel [phone], Service support ,
--- NOTE | 2019-11-16 14:40 | ED.DCSUM_ITS ---
History of Present Illness Chief Complaint: Fatigue Informant: Patient, Family Onset: Days Context: Gradual Onset Current Severity: Mild Maximum Severity: Moderate Narrative: Patient presents secondary to increased fatigue and shaking. He is been somewhat more fatigued for the past 3 days, not having energy to get up and do things. He feels like he is been sleeping a bit more than normal. Today he started having shaking in his arms and legs. EMS was called. He states while in route to the hospital symptoms seem to resolve and now he feels improved. He states activity was not consistent with seizure. He did not feel like he was shivering. He does have history of stroke and TIAs, but states the symptoms were not similar to his prior episodes. - Past Medical History (1) CVA (cerebral vascular accident) Status: Chronic Comment: MRI brain 07/03/16 with focal subcortical acute infarcts within the high right frontal border zone region and the left posterior border zone region abutting the central sulcus likely within the central gyrus. (2) Essential (primary) hypertension Status: Chronic (3) HLD (hyperlipidemia) Status: Chronic (4) History of loop recorder Status: Chronic (5) TIA (transient ischemic attack) Status: Chronic Comment: MRI showed an acute left parietal lacunar infarct. 10/2017 Past Medical History - Allergies and Home Meds Allergies/Adverse Reactions: Allergies adhesive tape Allergy (Mild, Verified 11/16/19 14:04) Unknown methimazole [From Tapazole] Allergy (Mild, Verified 11/16/19 14:04) Unknown Sulfa (Sulfonamide Antibiotics) Allergy (Verified 11/16/19 14:04) PT CAN'T REMEMBER Primary Care Physician: Liseth Del Valle DO [Primary Care Provider] - Prior records reviewed: Yes Surgical History: - - Arthroscopic knee surgery, left eye muscle surgery, Lasix eye surgery, bilateral carpal tunnel surgery, tonsillectomy. Lives: Spouse/ Significant Other Smoking Status: Never smoker - Family History Maternal Family History: Family History (Last Reviewed 05/25/19 @ 14:[address] Henry Redmond MD) Mother CVA (cerebral vascular accident) Cancer Colon cancer Thyroid disorder Father Heart disease Hypertension Cancer Diabetes Brother Myocardial infarction Other Anxiety and depression Arthritis Bowel disease Psychiatric care Skin cancer Family History: Reports: Cancer, Stroke Paternal Family History: Family History (Last Reviewed 05/25/19 @ 14:[address] Henry Redmond MD) Mother CVA (cerebral vascular accident) Cancer Colon cancer Thyroid disorder Father Heart disease Hypertension Cancer Diabetes Brother Myocardial infarction Other Anxiety and depression Arthritis Bowel disease Psychiatric care Skin cancer Family History: Reports: Heart Disease Sibling Family History: Family History (Last Reviewed 05/25/19 @ 14:[address] Henry Redmond MD) Mother CVA (cerebral vascular accident) Cancer Colon cancer Thyroid disorder Father Heart disease Hypertension Cancer Diabetes Brother Myocardial infarction Other Anxiety and depression Arthritis Bowel disease Psychiatric care Skin cancer Family History: Reports: Heart Disease Review of Systems General: Denies: Chills, Fever Eyes: Denies: Visual changes - bilaterally ENT: Denies: Bilateral ear pain Cardiovascular: Denies: Chest pain, Palpitations Respiratory: Denies: Dyspnea, Cough Gastrointestinal: Denies: Abdominal pain, Nausea, Vomiting, Diarrhea Genitourinary: Denies: Dysuria Musculoskeletal: Denies: Swelling, Extremity Pain Skin: Denies: Rash Neurological: Denies: Headache Hematologic: Denies: Easy bruising, Easy bleeding Allergy: Denies: Uticaria Physical Exam Vital Signs/Narrative: Vital Signs Temp Pulse Resp BP Pulse Ox 11/16/19 14:11 97.8 F 73 17 161/96 H 97 11/16/19 14:05 97.8 F 68 17 161/96 H 97 Inital Vital Signs reviewed: Yes General: Well nourished, Well developed Head: Normocephalic ENT: Moist mucous membranes Neck: Supple Cardiovascular: Regular rate, Regular rhythm Respiratory: No distress, CTA bilaterally Abdomen: Soft, Nontender Back: Nontender Extremities: Nontender Skin: Normal color Neurological: Alert, Oriented x3, Normal Strength, Normal Sensation Psychological: Normal affect Diagnostic/Tx/Re-eval Impressions Chest X-Ray 11/16/19 14:39 IMPRESSION: Normal x-ray examination of the chest. Electronically Signed: Tip Miner DO at 15:22 EDT Tel [phone], Service support , 11/16/19 14:39 Chest 1 View (Portable) [RAD] Stat Laboratory Results 11/16/19 11/16/19 14:57 14:57 WBC 6.0 RBC 4.58 L Hgb 14.2 Hct 43.3 MCV 94.5 H MCH 31.0 MCHC 32.8 RDW Std Deviation 40.7 RDW Coeff of Miguel 11.9 Plt Count 146 L MPV 11.4 Immature Gran % (Auto) 0.500 Neut % (Auto) 65.9 Lymph % (Auto) 23.4 [place] % (Auto) 8.9 Eos % (Auto) 0.8 Baso % (Auto) 0.5 Absolute Neuts (auto) 3.9 Absolute Lymphs (auto) 1.39 Nucleated RBC % 0 Sodium 140 Potassium 4.1 Chloride 108 H Carbon Dioxide 28.0 Anion Gap 4 L BUN 15 Creatinine 0.96 Estim Creat Clear Calc 79.71 Est GFR (MDRD) Af Amer 100 Est GFR (MDRD) Non-Af 83 BUN/Creatinine Ratio 15.7 Glucose 100 Calcium 8.5 Total Bilirubin 1.10 H Direct Bilirubin 0.27 AST 33 ALT 33 Alkaline Phosphatase 40 L Troponin I < 0.015 Total Protein 6.1 L Albumin 3.2 Globulin 2.9 TSH 0.40 - EKG Initial EKG Interpretation: Sinus Rhythm - Sinus at 62 with a right bundle branch block. No acute ST change. 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 He has had no further symptoms while in the emergency room. Blood work is unremarkable and he does feel comfortable monitoring his symptoms at home. He was encouraged to return for worsening symptoms or concerns. ED Disposition - Plan for ED Patient: Disposition: Home or Assisted Living Diagnosis: Fatigue Instructions: ED Weakness [facility] Referrals: Liseth Del aVlle DO [Primary Care Provider] - 3-5 Days if not improving
[2019-11-16 15:17] LABS: Absolute Lymphocyte Count 1.39 X10^3/uL (0.83-4.51); Absolute Neutrophil Count 3.9 X10^3/uL (2.0-7.7); Basophil# 0.03 X10^3/uL; Basophil% 0.5 % (0-1); Eosinophil# 0.05 X10^3/uL; Eosinophils% 0.8 % (0-5); Hematocrit 43.3 % (40-54); Hemoglobin 14.2 g/dL (13.0-16.5); Lymphocyte # 1.39 X10^3/ul (4.0); Lymphocyte % 23.4 % (19-41); Mean Corp Hgb Conc 32.8 g/dL (32-36); Mean Corpuscular Volume 94.5 fL (80-94); Mean Platelet Vol. 11.4 fl (6.2-12.0); Monocyte# 0.53 X10^3/uL; Monocyte% 8.9 % (0-10); NRBC Flagged by Analyzer 0 % (0-5); Neutrophil # 3.92 X10^3/uL (2.7-7.7); Neutrophil % 65.9 % (47-70); Platelet Count 146 K/mm3 (150-450); RBC Distribution Width CV 11.9 % (11.6-14.6); RBC Distribution Width SD 40.7 fl (35.1-43.9); Red Blood Count 4.58 M/mm3 (4.6-6.2)
[2019-11-16 15:51] LABS: AST(SGOT) 33 U/L (15-37); Alanine Aminotransfer ALT/SGPT 33 U/L (16-61); Albumin, Serum 3.2 g/dL (3.2-5.0); Alkaline Phosphatase 40 U/L (45-117); Anion Gap 4 (5-15); BUN 15 mg/dL (7-18); BUN/Creat Ratio 15.7 RATIO (10-20); Bilirubin, Direct 0.27 mg/dL (0.00-0.30); Calcium,Total 8.5 mg/dL (8.5-10.1); Chloride 108 mmol/L (98-107); Creatinine, Serum 0.96 mg/dL (0.70-1.30); EST Glomerular Filtration Rate 83 mL/min (>60); Est Glom Filt Rate - Afr Amer 100 mL/min (>60); Estimated Creatinine Clearance 79.71 ml/min; Globulin 2.9 g/dL (2.2-4.2); Glucose 100 mg/dL (74-106); Potassium 4.1 mmol/L (3.5-5.1); Protein, Total 6.1 g/dL (6.4-8.2); Sodium Level 140 mmol/L (136-145)
[2019-11-16 16:34] VITALS: BP 161/93; PULSE 63; RESP 17; O2SAT 97
== END 2019-11-16 16:35 | disposition home or self-care (01) ==
PROVIDERS: Emergency Provider Emergency Medicine; PCP Family Medicine
DX: R53.83 Other fatigue (principal); I10 Essential (primary) hypertension; E78.5 Hyperlipidemia, unspecified; Z86.73 Personal history of transient ischemic attack (TIA), and cerebral infarction without residual deficits; Z79.02 Long term (current) use of antithrombotics/antiplatelets; Z79.899 Other long term (current) drug therapy
CPT/HCPCS: 71045; 80048; 80076; 84443; 84484; 85025; 93005; 99285; A4216

== ENCOUNTER → 2020-10-18 10:29 | Outpatient (CLI) | payer MEDICARE, OTHER, SELFPAY ==
--- NOTE | 2020-10-18 10:39 | MRI_ITS ---
STUDY: MRI BRAIN WITH AND WITHOUT CONTRAST REASON FOR EXAM: Male, 70 years old. DIPLOPLIA TECHNIQUE: Standardized multiplanar fat and water weighted pulse sequences were obtained. IV 20 cc dotarem was administered for the contrast portion of the examination. COMPARISON: None. FINDINGS: Normal size of the ventricles and extra-axial spaces for the patient''s age. Normal white matter tracts of the supratentorial brain. There is no evidence for recent intracranial ischemia or other cause of cytotoxic edema on diffusion weighted imaging (DWI). Normal T2* images of the brain without demonstrated susceptibility artifact. There is no demonstrated hemosiderin stain. Normal bilateral basal ganglia. Normal thalami. There is no extra-axial fluid accumulation. Normal flow voids within the major intracranial circulation suggesting patency by spin echo criteria. Normal venous enhancement. There is no enhancing intra-axial or extra-axial abnormality. Normal sella turcica, pituitary gland, infundibular stalk, optic chiasm and hypothalamus. Normal tectal plate and pineal gland. Normal midbrain, zhou and medulla. Normal cerebellum. Normal basal cisterns. Normal bilateral temporal bones. Normal bilateral internal auditory canals. No demonstrated orbital abnormality, within the constraints of a routine brain study. Normal visualized paranasal sinuses. Normal calvarium and skull base. Normal visualized soft tissue structures. Normal visualized upper cervical spine. MRI/Brain W/WO Contrast IMPRESSION: Normal unenhanced and enhanced MRI of the brain. Electronically Signed: Panchito Majano MD at 13:08 EDT Tel , Service support ,
[2020-10-19 08:12] LABS: EGFR FINGERSTICK > 60 mL/min (>60)
== END ==
PROVIDERS: PCP Family Medicine
DX: H53.2 Diplopia (principal)
CPT/HCPCS: 70553; A9575

== ENCOUNTER 2020-11-29 10:03 | Emergency (ER) | payer MEDICARE, OTHER, SELFPAY ==
[2020-11-29 10:04] VITALS: BP 193/95; PULSE 60; RESP 18; TEMP 36.5; O2SAT 100; BMI 29.8
[2020-11-29 10:55] VITALS: BP 178/108; PULSE 63; RESP 16
--- NOTE | 2020-11-29 11:01 | CT_ITS ---
STUDY: CT BRAIN WITHOUT CONTRAST REASON FOR EXAM: Male, 70 years old. Weakness RADIATION DOSAGE (If Supplied By Facility): CTDIvol = ( 44.99 ) mGy, DLP = ( 897.35 ) mGycm TECHNIQUE: Transaxial CT imaging of the brain was performed without administration of intravenous contrast material. Individualized dose optimization techniques were used for this CT. COMPARISON: Comparison is made with prior study dated 10/29/2017. FINDINGS: Normal soft tissue structures. Normal calvarium. There is mild cerebral atrophy with widening of the extra-axial spaces and ventricular dilatation. Normal white matter tracts of the cerebral hemispheres. Normal basal ganglia and thalami. Normal brainstem. Normal cerebellum. There is no intracranial hemorrhage. There are no findings of an acute ischemic infarction. Atherosclerotic calcification of the vertebral arteries and cavernous portions of the internal carotid arteries bilaterally. Normal visualized paranasal sinuses. CT/Brain/Head without Contrast IMPRESSION: Chronic involutional changes of the brain. Electronically Signed: Matthew Cohen MD at 11:39 EDT , Service support ,
--- NOTE | 2020-11-29 11:04 | EKG12_ITS ---
Test Reason : Blood Pressure : / mmHG Vent. Rate : 052 BPM Atrial Rate : 052 BPM P-R Int : 204 ms QRS Dur : 156 ms QT Int : 472 ms P-R-T Axes : 033 -16 011 degrees QTc Int : 438 ms Sinus bradycardia Right bundle branch block Abnormal ECG Confirmed by DARRON URRUTIA, SENG ([id number]), editor farm journal MIGUEL SQUIRES ([id number]) on 11/30/2020 9:25:41 AM Referred By: TREVOR Confirmed By:SENG ROB MD
--- NOTE | 2020-11-29 11:05 | EDS_ITS ---
HPI History of Present Illness Chief Complaint: Neuro S/Sx Narrative Narrative: Patient has noticed his blood pressure being quite high over the past few days, he feels lightheaded at times he does not have any vertigo or disequilibrium. He noticed both hands being tingly. He has no weakness, no vision changes, no sensory deficits, no gait abnormalities. He is denying chest pain or shortness of breath. He noticed his blood pressure being normal during the day but when he wakes up in the morning it is quite high until he takes his blood pressure medications. [facility] Medical History (Updated 11/29/20 @ 13:[address] Dino Lazaro MD) Back problem Bone fracture Carpal tunnel syndrome Contact with powered saw as cause of accidental injury Cryptogenic stroke CVA (cerebral vascular accident) (06/2016) Essential (primary) hypertension Fatigue Hemorrhoid Hemorrhoids History of blood clots History of pneumonia HLD (hyperlipidemia) Hypertension Hypothyroidism Injury of nail bed of finger of left hand Laceration of left index finger without foreign body with damage to nail Laceration of left middle finger without foreign body with damage to nail Obesity Obstructive sleep apnea Open fracture of distal phalanx of left index finger Open fracture of distal phalanx of left middle finger Rectal bleed Right bundle branch block Seasonal allergies Subungual hematoma of left index finger Subungual hematoma of left middle finger Thyroid disease TIA (transient ischemic attack) (10/2017) Vision problems Home Medications triamcinolone acetonide 1 applic TOPICAL DAILY 07/03/16 [History Last Taken 10/21/18] clopidogrel 75 mg PO DAILY #30 tab 10/28/17 [Rx Last Taken 10/21/18] cholecalciferol (vitamin D3) 50 mcg (2,000 unit) capsule 2,000 unit PO DAILY 11/27/17 [History Last Taken 10/21/18] levothyroxine 175 mcg tablet 175 mcg PO DAILY 11/27/17 [History Last Taken 10/21/18] multivitamin 1 tab PO DAILY 11/27/17 [History Last Taken 10/21/18] losartan 50 mg tablet 75 mg PO DAILY 30 Days #30 tab 05/29/18 [History Last Taken 10/21/18] atorvastatin 40 mg tablet 40 mg PO QHS tab 05/25/19 [History Last Taken Unknown] magnesium oxide 500 mg capsule 500 mg PO DAILY 05/25/19 [History Last Taken Unknown] hydrochlorothiazide 12.5 mg PO DAILY #14 tab 11/29/20 [Rx Last Taken Unknown] Allergy/AdvReac Type Severity Reaction Status Date / Time adhesive tape Allergy Mild Unknown Verified 11/29/20 10:06 methimazole [From Tapazole] Allergy Mild Unknown Verified 11/29/20 10:06 Sulfa (Sulfonamide Allergy PT CAN'T Verified 11/29/20 10:06 Antibiotics) REMEMBER Family History Mother CVA (cerebral vascular accident) Cancer Colon cancer Thyroid disorder Father Heart disease Hypertension Cancer Diabetes Brother Myocardial infarction from [place] Other Anxiety and depression Arthritis Bowel disease Psychiatric care Skin cancer Surgical History H/O knee surgery History of carpal tunnel release History of loop recorder (12/13/17) History of tonsillectomy Hx of LASIK Social History (Updated 05/25/20 @ 10:[address] Henry Redmond MD) Smoking Status: Never smoker second hand exposure: No alcohol intake: never substance use type: does not use caffeine: Yes frequency: does not exercise seatbelt use: always additional social history: DOES NOT USE ASPIRIN DOES NOT USE IBUPROFEN ROS ROS ED ROS Narrative Past medical history: Reviewed, patient has history of CVA, TIA, hypertension, hyperlipidemia Medications: Reviewed Social history: Noncontributory Review of systems: All systems negative except as indicated General: No fever. Lightheadedness as in HPI Eyes: No visual changes ENT: No upper airway congestion, normal voice Neck: No neck pain Cardiovascular: No chest pain Respiratory: No shortness of breath or cough Gastrointestinal: No abdominal pain, nausea vomiting or diarrhea Genitourinary: No dysuria Musculoskeletal: Denies myalgias no difficulty with ambulation Skin: No rash Neurological: No memory loss, confusion or any focal weakness. No vision changes. No sensory deficits. Psych: No recent behavioral changes Hematologic: No easy bleeding or easy bruising EXAM Physical Exam Narrative Exam Narrative: Physical exam General: Patient is relatively comfortable in the bed. Head: Normocephalic, Atraumatic Eyes: Conjunctiva not pale ENT: Moist mucous membranes Neck: Supple, Nontender, No lymphadenopathy Cardiovascular: Regular rate, Regular rhythm Respiratory: No distress, CTA bilaterally Abdomen: Soft, Nontender, Nondistended Back: Nontender, Normal Inspection. Negative for: CVA tenderness Extremities: Nontender, No edema Skin: Normal color, No rash Neurological: Alert, Normal Strength, Normal Sensation. He has normal cerebellar function including a normal Romberg and [id number]. Normal speech without aphasia. Psychological: Normal affect Const Vital Signs: 11/29/20 10:04 11/29/20 10:55 11/29/20 10:57 Temperature 97.7 F L Temperature Source Temporal Pulse Rate 60 63 Respiratory Rate 18 16 Respiratory Effort Normal Non-Labored Blood Pressure 193/95 H 178/108 H Blood Pressure Mean 127 131 Pulse Ox 100 Oxygen Delivery Method Room Air 11/29/20 11:07 11/29/20 12:03 Temperature Temperature Source Pulse Rate 56 L 54 L Respiratory Rate 18 16 Respiratory Effort Blood Pressure 159/83 H 153/87 H Blood Pressure Mean 108 109 Pulse Ox 98 97 Oxygen Delivery Method Room Air Room Air MDM MDM MDM Narrative Medical decision making narrative: Patient has a normal ED work-up. He is hypertensive but it did improve in the ED. He appears well his heart rate is in the low 60s and high 50s but he has been tell me that his blood pressure has been high for 3 weeks. I believe another agent is warranted I will add a diuretic. Otherwise he can follow-up with his PCP. Lab Data Labs: Laboratory Results - last 24 hr 11/29/20 11/29/20 10:53 10:53 WBC 5.3 RBC 4.66 Hgb 14.7 Hct 44.0 MCV 94.4 H MCH 31.5 MCHC 33.4 RDW Std Deviation 39.9 RDW Coeff of Miguel 11.7 Plt Count 159 MPV 10.8 Immature Gran % (Auto) 0.600 Neut % (Auto) 60.5 Lymph % (Auto) 28.2 [place] % (Auto) 9.2 Eos % (Auto) 0.9 Baso % (Auto) 0.6 Absolute Neuts (auto) 3.2 Absolute Lymphs (auto) 1.50 Nucleated RBC % 0 Sodium 141 Potassium 4.2 Chloride 104 Carbon Dioxide 30.0 Anion Gap 7 BUN 16 Creatinine 1.06 Estim Creat Clear Calc 71.17 Est GFR (MDRD) Af Amer 89 Est GFR (MDRD) Non-Af 73 BUN/Creatinine Ratio 15.1 Glucose 114 H Calcium 9.0 Total Bilirubin 1.40 H AST 27 ALT 34 Alkaline Phosphatase 44 L Troponin I High Sens 16 Total Protein 6.9 Albumin 3.4 Globulin 3.5 Albumin/Globulin Ratio 1.0 Radiography Diagnostic Testing: Clinical Impression(s) from Imaging Studies Brain CT 11/29/20 11:01 IMPRESSION: Chronic involutional changes of the brain. Electronically Signed: Matthew Cohen MD at 11:39 EDT , Service support , Chest X-Ray 11/29/20 11:30 IMPRESSION: No acute abnormality is seen. Electronically Signed: Matthew Cohen MD at 12:11 EDT , Service support , Discharge Plan Triage Chief Complaint: Neuro S/Sx ED Provider: Dino Lazaro Dx/Rx/DC Orders Clinical Impression: Essential (primary) hypertension Instructions: Blood Pressure Check Steps, ED Hypertension, Established Prescriptions: New hydrochlorothiazide 12.5 mg tablet 12.5 mg PO DAILY Qty: 14 RF: 0 No Action levothyroxine 175 mcg tablet 175 mcg PO DAILY RF: 0 cholecalciferol (vitamin D3) 2,000 unit capsule 2,000 unit PO DAILY RF: 0 multivitamin tablet 1 tab PO DAILY RF: 0 losartan 50 mg tablet 75 mg PO DAILY 30 Days Qty: 30 RF: 0 atorvastatin 40 mg tablet 40 mg PO QHS RF: 0 magnesium oxide 500 mg capsule 500 mg PO DAILY RF: 0 triamcinolone acetonide 1 APPLIC ointment 1 applic TOPICAL DAILY RF: 0 clopidogrel 75 MG tablet 75 mg PO DAILY Qty: 30 RF: 0 Primary Care Provider: Liseth Del Valle Referrals: Liseth Del Valle DO [Primary Care Provider] - 2 Days Activity Restrictions/Additional Instructions: Take 1 tablet of losartan at night and one half a tablet of losartan in the morning, take your hydrochlorothiazide in the morning. Disposition Disposition: Home, Self Care
[2020-11-29 11:07] VITALS: BP 159/83; PULSE 56; RESP 18; O2SAT 98
[2020-11-29 11:14] LABS: Absolute Neutrophil Count 3.2 X10^3/uL (2.0-7.7); Basophil# 0.03 X10^3/uL; Basophil% 0.6 % (0-1); Eosinophil# 0.05 X10^3/uL; Eosinophils% 0.9 % (0-5); Hemoglobin 14.7 g/dL (13.0-16.5); Lymphocyte % 28.2 % (19-41); Mean Corp Hgb Conc 33.4 g/dL (32-36); Mean Corpuscular Hgb 31.5 pg (27.0-32.0); Mean Corpuscular Volume 94.4 fL (80-94); Mean Platelet Vol. 10.8 fl (6.2-12.0); Monocyte# 0.49 X10^3/uL; Monocyte% 9.2 % (0-10); NRBC Flagged by Analyzer 0 % (0-5); Neutrophil # 3.22 X10^3/uL (2.7-7.7); Neutrophil % 60.5 % (47-70); Platelet Count 159 K/mm3 (150-450); RBC Distribution Width CV 11.7 % (11.6-14.6); RBC Distribution Width SD 39.9 fl (35.1-43.9); Red Blood Count 4.66 M/mm3 (4.6-6.2); White Blood Count 5.3 K/mm3 (4.4-11.0)
[2020-11-29 11:26] LABS: AST(SGOT) 27 U/L (15-37); Alanine Aminotransfer ALT/SGPT 34 U/L (16-61); Albumin, Serum 3.4 g/dL (3.2-5.0); Alkaline Phosphatase 44 U/L (45-117); Anion Gap 7 (5-15); BUN 16 mg/dL (7-18); BUN/Creat Ratio 15.1 RATIO (10-20); Chloride 104 mmol/L (98-107); Creatinine, Serum 1.06 mg/dL (0.70-1.30); EST Glomerular Filtration Rate 73 mL/min (>60); Est Glom Filt Rate - Afr Amer 89 mL/min (>60); Estimated Creatinine Clearance 71.17 ml/min; Globulin 3.5 g/dL (2.2-4.2); Glucose 114 mg/dL (74-106); Potassium 4.2 mmol/L (3.5-5.1); Protein, Total 6.9 g/dL (6.4-8.2); Sodium Level 141 mmol/L (136-145); Troponin-I HS 16 pg/mL (3.0-78.0)
[2020-11-29 11:28] VITALS: BMI 29.8
--- NOTE | 2020-11-29 11:30 | RAD_ITS ---
STUDY: X-RAY CHEST REASON FOR EXAM: Male, 70 years old. Weakness TECHNIQUE: Single AP portable view of the chest. COMPARISON: Comparison is made with prior study 11/16/2019. FINDINGS: EKG electrodes are seen. Stable elevation of the right hemidiaphragm. The lungs are clear. There is no demonstrated pleural abnormality. Normal size heart. A loop recorder device is seen overlying the left cardiac border. Normal mediastinum and emelyn. Normal visualized pulmonary arteries. Normal visualized aortic arch and descending thoracic aorta. There are diffuse degenerative changes of the visualized thoracic spine. Normal visualized ribs, clavicles, and shoulders. There is no demonstrated abnormality of the visualized soft tissue structures of the upper abdomen. RAD/Chest 1 View (Portable) IMPRESSION: No acute abnormality is seen. Electronically Signed: Matthew Cohen MD at 12:11 EDT , Service support ,
[2020-11-29 12:03] VITALS: BP 153/87; PULSE 54; RESP 16; O2SAT 97
[2020-11-29 13:53] LABS: Cholesterol 111 mg/dL (200); Free T3 2.8 pg/mL (2.18-3.98); High Density Lipoprotein 40 mg/dL; PSA,Total - Annual Screen 2.85 ng/mL (0.00-4.00); T4 Free Direct 1.46 ng/dL (0.76-1.46); Thyroid Stim Hormone (TSH) 0.04 uIU/mL (0.358-3.74); Triglycerides 86 mg/dL; Very Low Density Lipoprotein 17 mg/dL (5-40)
== END 2020-11-29 13:19 | disposition home or self-care (01) ==
PROVIDERS: Emergency Provider Emergency Medicine; PCP Family Medicine
DX: I10 Essential (primary) hypertension (principal); E78.5 Hyperlipidemia, unspecified; E03.9 Hypothyroidism, unspecified; E66.9 Obesity, unspecified; Z86.73 Personal history of transient ischemic attack (TIA), and cerebral infarction without residual deficits; Z79.899 Other long term (current) drug therapy; Z12.5 Encounter for screening for malignant neoplasm of prostate; Z51.81 Encounter for therapeutic drug level monitoring
CPT/HCPCS: 70450; 71045; 80053; 80061; 84153; 84439; 84443; 84481; 84484; 85025; 93005; 96360; 99284; J7040; A4216; G0103

== ENCOUNTER 2021-02-16 10:51 | Outpatient (CLI) | payer MEDICARE, OTHER, SELFPAY ==
[2021-02-16 12:16] LABS: T4 Free Direct 1.08 ng/dL (0.76-1.46); Thyroid Stim Hormone (TSH) 1.03 uIU/mL (0.358-3.74)
== END 2021-02-16 23:59 | disposition short-term general hospital (02) ==
LOC: MTLAB 10:52
PROVIDERS: PCP Family Medicine; Referring Provider Family Medicine; Visit Provider Family Medicine
DX: E03.9 Hypothyroidism, unspecified (principal); D64.9 Anemia, unspecified
CPT/HCPCS: 36415; 84439; 84443; 84481; 86900; 86901

== ENCOUNTER → 2021-07-18 | Outpatient (CLI) | payer MEDICARE, OTHER, SELFPAY ==
[2021-07-18 18:10] LABS: Free T3 2.5 pg/mL (2.18-3.98); T4 Free Direct 1.33 ng/dL (0.76-1.46); Thyroid Stim Hormone (TSH) 0.23 uIU/mL (0.358-3.74)
== END | disposition home or self-care (01) ==
LOC: MTLAB 15:39
PROVIDERS: PCP Family Medicine; Referring Provider Family Medicine; Visit Provider Family Medicine
DX: E03.9 Hypothyroidism, unspecified (principal)
CPT/HCPCS: 36415; 84439; 84443; 84481

== ENCOUNTER → 2021-10-30 | Outpatient (CLI) | payer MEDICARE, OTHER, SELFPAY ==
[2021-10-30 15:19] LABS: Absolute Lymphocyte Count 1.84 X10^3/uL (0.83-4.51); Basophil# 0.03 X10^3/uL; Basophil% 0.5 % (0-1); Eosinophil# 0.09 X10^3/uL; Eosinophils% 1.6 % (0-5); Hematocrit 43.5 % (40-54); Hemoglobin 14.6 g/dL (13.0-16.5); Lymphocyte # 1.84 X10^3/ul (0.83-4.51); Lymphocyte % 33.3 % (19-41); Mean Corp Hgb Conc 33.6 g/dL (32-36); Mean Corpuscular Hgb 32.4 pg (27.0-32.0); Mean Corpuscular Volume 96.5 fL (80-94); Mean Platelet Vol. 11.6 fl (6.2-12.0); Monocyte# 0.53 X10^3/uL; Monocyte% 9.6 % (0-10); NRBC Flagged by Analyzer 0 % (0-5); Neutrophil # 3.02 X10^3/uL (2.7-7.7); Neutrophil % 54.8 % (47-70); Platelet Count 144 K/mm3 (150-450); RBC Distribution Width CV 11.8 % (11.6-14.6); RBC Distribution Width SD 41.6 fl (35.1-43.9); Red Blood Count 4.51 M/mm3 (4.6-6.2); White Blood Count 5.5 K/mm3 (4.4-11.0)
[2021-10-30 15:56] LABS: ALB/GLOB Ratio 1.1 RATIO (0.9-2.4); AST(SGOT) 29 U/L (15-37); Alanine Aminotransfer ALT/SGPT 34 U/L (16-61); Albumin, Serum 3.6 g/dL (3.2-5.0); Alkaline Phosphatase 35 U/L (45-117); Anion Gap 7 (5-15); BUN 23 mg/dL (7-18); BUN/Creat Ratio 22.3 RATIO (10-20); Calcium,Total 8.6 mg/dL (8.5-10.1); Chloride 104 mmol/L (98-107); Creatinine, Serum 1.03 mg/dL (0.70-1.30); EST Glomerular Filtration Rate 76 mL/min (>60); Est Glom Filt Rate - Afr Amer 91 mL/min (>60); Globulin 3.2 g/dL (2.2-4.2); Glucose 92 mg/dL (74-106); Potassium 3.8 mmol/L (3.5-5.1); Protein, Total 6.8 g/dL (6.4-8.2); Sodium Level 140 mmol/L (136-145); T4 Free Direct 1.06 ng/dL (0.76-1.46); Thyroid Stim Hormone (TSH) 2.51 uIU/mL (0.358-3.74)
== END | disposition home or self-care (01) ==
PROVIDERS: PCP Family Medicine; Referring Provider Family Medicine; Visit Provider Family Medicine
DX: E03.9 Hypothyroidism, unspecified (principal); Z51.81 Encounter for therapeutic drug level monitoring; Z12.5 Encounter for screening for malignant neoplasm of prostate
CPT/HCPCS: 36415; 80053; 84439; 84443; 84481; 85025

== ENCOUNTER → 2022-01-30 | Outpatient (CLI) | payer MEDICARE, OTHER, SELFPAY ==
[2022-01-30 13:07] LABS: Cholesterol 126 mg/dL (200); Free T3 2.2 pg/mL (2.18-3.98); High Density Lipoprotein 39 mg/dL; T4 Free Direct 1.24 ng/dL (0.76-1.46); Thyroid Stim Hormone (TSH) 5.63 uIU/mL (0.358-3.74); Triglycerides 131 mg/dL; Very Low Density Lipoprotein 26 mg/dL (5-40)
== END | disposition home or self-care (01) ==
LOC: MTLAB 11:24
PROVIDERS: PCP Family Medicine; Referring Provider Family Medicine; Visit Provider Family Medicine
DX: E03.9 Hypothyroidism, unspecified (principal); E78.5 Hyperlipidemia, unspecified
CPT/HCPCS: 80061; 84439; 84443; 84481

== ENCOUNTER 2022-02-16 06:52 | Day surgery (SDC) | payer MEDICARE, OTHER, SELFPAY ==
[2022-02-16] VITALS (8 sets, daily range): BP systolic 81–127; BP diastolic 59–72; PULSE 57–73; RESP 14–15; TEMP 36.3–37.2; O2SAT 91–96; BMI 30.6
[2022-02-16] MEDS: Lactated Ringers 1,000 ML 15 ML IV (07:29)
--- NOTE | 2022-02-16 07:37 | PCM.HP.BLA ---
History and Physical Date of Admission: 02/16/22 Visit Reasons:?CSCOPE Chief Complaint: c-scope/bleeding hemorrhoids Planer Chain Offbearer Required: No Is patient in pain?: No Allergies adhesive tape Allergy (Mild, Verified 01/15/22 13:22) Unknownmethimazole [From Tapazole] Allergy (Mild, Verified 01/15/22 13:22) UnknownSulfa (Sulfonamide Antibiotics) Allergy (Verified 01/15/22 13:22) PT CAN'T REMEMBER Medications triamcinolone acetonide 0.1 % topical ointment 1 applic topical DAILY 07/03/16 [History Confirmed 01/15/22] clopidogrel 75 mg tablet 75 mg PO DAILY #30 tabs 10/28/17 [Rx Confirmed 01/15/22] cholecalciferol (vitamin D3) 50 mcg (2,000 unit) capsule 2,000 unit PO DAILY 11/27/17 [History Confirmed 01/15/22] multivitamin 1 tab PO DAILY 11/27/17 [History Confirmed 01/15/22] atorvastatin 40 mg tablet 40 mg PO QHS 05/25/19 [History Confirmed 01/15/22] magnesium oxide 500 mg capsule 500 mg PO DAILY 05/25/19 [History Confirmed 01/15/22] losartan 50 mg tablet 75 mg PO DAILY 30 days #30 tabs 12/16/20 [History Confirmed 01/15/22] hydrochlorothiazide 12.5 mg tablet 12.5 mg PO DAILY PRN 12/21/21 [History Confirmed 01/15/22] lactobacillus combination no.9 4 billion cell capsule (Adult 50 Plus Probiotic) 4,000 mmu cells PO DAILY 12/21/21 [History Confirmed 01/15/22] levothyroxine 137 mcg tablet 137 mcg PO .6 days a week 12/21/21 [History Confirmed 01/15/22] PFSH Medical History? Back problem Carpal tunnel syndrome Contact with powered saw as cause of accidental injury Cryptogenic stroke CVA (cerebral vascular accident) (10/2017) Essential (primary) hypertension Hemorrhoids History of blood clots HLD (hyperlipidemia) Hypertension Hypothyroidism Injury of nail bed of finger of left hand Laceration of left index finger without foreign body with damage to nail Laceration of left middle finger without foreign body with damage to nail Lightheadedness Obesity Obstructive sleep apnea Open fracture of distal phalanx of left index finger Open fracture of distal phalanx of left middle finger Orthostatic hypotension Rectal bleed Right bundle branch block Seasonal allergies Vision problems Surgical History? H/O knee surgery History of carpal tunnel release History of loop recorder (12/13/17) History of tonsillectomy Hx of LASIK Family History? Mother CVA (cerebral vascular accident) Cancer Colon cancer Thyroid disorderFather Heart disease Hypertension Cancer DiabetesBrother Myocardial infarction ?? ? from [place] Anxiety and depression Arthritis Bowel disease Psychiatric care Skin cancer Social History? Smoking Status:? Never smoker second hand exposure:? No alcohol intake:? never substance use type:? does not use caffeine:? Yes frequency:? does not exercise seatbelt use:? always additional social history:? DOES NOT USE ASPIRIN DOES NOT USE IBUPROFEN HPI HPI HPI: 71-year-old gentleman.? Presents for a colonoscopy today.? Primary care physicians Dr. Liseth Del Valle and a written copy my surgical consult recommendations will return to her.? I have seen the patient remotely on November 27, 2018.? At that time he complained of rectal bleeding and a family history of colon cancer.? I performed a colonoscopy for him on January 24, 2018.? 3 polyps were removed.? Pathology demonstrated tubular adenomas.? At that time he had nonthrombosed external hemorrhoids and internal hemorrhoids grade 3 as well as an enlarged prostate.? The largest polyp was 11 mm.? I did recommend follow-up colonoscopy at 1 year due to the size of the polyps.? Prior to his office visit to me most recently he had had a left hand injury with a bacterial infection that was being treated.? I recommend to him a colonoscopy and then possible future hemorrhoidectomy.? He was to notify me after he completed with his care from plastic surgery. His medical problems have become more complex as he has had history of a cryptogenic CVA and hypertension and hyperlipidemia and has a loop recorder.? He has had acute lacunar as well as cerebellar infarcts.? Among his other medications he is on clopidogrel. Patient notes that when he walks he has rectal bleeding.? This has been an ongoing chronic problem.? When he golfs during the summer he rides a cart but in the fall he does more walking and when he walks he has the bleeding.? About couple weeks ago he had an episode of some abdominal cramping that was also associated with the bleeding. He does recall that when we saw him back in 2019 that we were proceeding with a follow-up colonoscopy from his polyps of 18 but due to COVID pandemic and other issues that is caused the delaying his return.? Now the propensity to have recurrent bleeding becomes an issue again. He otherwise states that he feels well.? Has not had any unexpected weight loss. ROS General General: No weight change, appetite, fatigue, colon cancer, breast cancer or weakness HEENT HEENT: Yes eye injury and eye surgery; No difficulty swallowing, swollen glands or hoarseness Endo Endocrine: Yes thyroid disease; No diabetes mellitus, thyroid cancer, Hair loss, heat intolerance or cold intolerance Skin Skin: Yes rash; No changing moles Breast Breast: No left breast lump, right breast lump, nipple discharge, breast pain, abnormal mammogram, abnormal US or breast enlargement Musc Musculoskeletal: Yes arthritis; No back problems, rheumatoid arthritis, gout or joint pain Cardio Cardiovascular: Yes high blood pressure; No murmur, pacemaker, heart disease, atrial fibrillation, heart attack, heart stent, palpitations, shortness of breat with exertion or chest pain Psych Psychiatric: No depression, anxiety or hearing voices Resp Respiratory: No shortness of breath, No sleep apnea, No cough, No COPD, No asthma, No emphysema and No wheezing Gastro Gastrointestinal: No abdominal pain, No nausea or vomiting, No diarrhea, No constipation, Yes blood in stool, No acid reflux, Yes hemorrhoids, No ulcers, No gallbladder problem and No black,tarry stools Connor Hematologic: No blood thinners, No blood disorders, No bleeding, No anemia and No blood clots Neuro Neurologic: No system reviewed and no additional complaints, except as documented, No as per HPI, No abnormal gait, No abnormal hearing, No abnormal movements, No abnormal speech, No behavioral changes, No burning sensations, No confusion, No convulsions, No disequilibrium, No dizziness, No localized weakness, No frequent falls, No headache(s), No lack of coordination, No loss of vision, No memory loss, No numbness, No other visual disturbances, No radicular pain, No restless legs, No sensory deficit, No syncope, No tingling, No tremor(s), No weakness and No other Exam Const General: cooperative, healthy appearing, comfortable and no acute distress [facility] Head: normal to inspection Eyes General: appearance normal, both eyes and all related structures Neck Neck: normal visual inspection Chest Chest palpation & inspection: normal inspection of the chest Resp Effort & Inspection: normal respiratory effort Auscultation: clear to auscultation bilaterally Cardio Rate: regular rate Rhythm: regular rhythm GI Palpation: soft and no hepatosplenomegaly Other: External anus has some mild hemorrhoidal changes right lateral.? Otherwise pretty clear Musc Cervical Spine: normal cervical lordosis Skin General: no rashes or lesions noted Neuro General: patient alert, patient awake and patient oriented x3 Extrem General: no calf tenderness Psych Appearance: grossly normal Assessment and Plan Assessment and Plan (1) Personal history of colonic polyps: ?Status:?Acute (2) Hemorrhoids: ?Status:?Acute ?Qualifiers: ?Hemorrhoid type:?other? Qualified Code(s):?K64.8 - Other hemorrhoids Plan Personal history of colon polyps.? In January 2018 I had recommended follow-up at 1 year we actually saw him at that time but he had a hand wound and then did not schedule proceeding with a colonoscopy.? I do recommend a colonoscopy at this setting very careful inspection for recurrent polyps we pursued.? We will also take careful colonoscopic inspection of the anal rectal area as I anticipate likely a significant degree of prolapsing internal hemorrhoids.? At my evaluation today he might be a future candidate for a PPH stapled hemorrhoidopexy but he will be requiring chronic clopidogrel.? I will need to compare in contrast this procedure with a true surgical hemorrhoidectomy for him.? I will recommend follow-up subsequent to the colonoscopy when we have more information.? He has had an opportunity to ask and have questions answered.? I very much appreciate the ongoing opportunity of assisting with the surgical care. Copy: Dr. Liseth Baltazar M.D., F.A.C.S I have examined the patient and the H&P has been reviewed. There are no clinical changes since date of exam. Benny Baltazar M.D., F.A.C.S.
--- NOTE | 2022-02-16 08:29 | OP.COLON_ITS ---
Patient Name: Trevor Gresham Procedure Date: 02/16/2022 8:07 AM Date of : 1950 Age: 72 Procedure: Colonoscopy Indications: High risk colon cancer surveillance: Personal history of colonic polyps Providers: Benny Baltazar MD Medicines: See the Anesthesia note for documentation of the administered medications Patient Profile: Last Colonoscopy: January 2018. Complications: No immediate complications. Procedure: Pre-Anesthesia Assessment: - Prior to the procedure, a History and Physical was performed, and patient medications and allergies were reviewed. The patient's tolerance of previous anesthesia was also reviewed. The risks and benefits of the procedure and the sedation options and risks were discussed with the patient. All questions were answered, and informed consent was obtained. Prior Anticoagulants: The patient has taken no previous anticoagulant or antiplatelet agents. ASA Grade Assessment: II - A patient with mild systemic disease. After reviewing the risks and benefits, the patient was deemed in satisfactory condition to undergo the procedure. After I obtained informed consent, the scope was passed under direct vision. Throughout the procedure, the patient's blood pressure, pulse, and oxygen saturations were monitored continuously. The colonoscope was introduced through the anus and advanced to the cecum, identified by appendiceal orifice and ileocecal valve. The colonoscopy was performed without difficulty. The patient tolerated the procedure well. The quality of the bowel preparation was good. The ileocecal valve and the appendiceal orifice were photographed. Scope In: 8:13:19 AM Scope Withdrawal Time 0 hours 7 minutes 25 seconds Scope Out: 8:24:12 AM Total Procedure Duration Time 0 hours 10 minutes 53 seconds Findings: The digital rectal exam findings include non-thrombosed internal hemorrhoids and internal hemorrhoids that prolapse with straining, but require manual replacement into the anal canal (Grade III). Pertinent negatives include normal prostate (size, shape, and consistency). Scattered diverticula were found in the sigmoid colon. Impression: - Non-thrombosed internal hemorrhoids and internal hemorrhoids that prolapse with straining, but require manual replacement into the anal canal (Grade III) found on digital rectal exam. - Diverticulosis in the sigmoid colon. - No specimens collected. Recommendation: - Discharge patient to home. - Resume previous diet. - Continue present medications. - Repeat colonoscopy in 5 years for surveillance. - Return to my office in 5 days to compare and contrast PPH hemorrhoidopexy and surgical hemorrhoidectomy. Majority of his findings are internal hemorrhoids. Procedure Code(s): --- Professional --- 74126, Colonoscopy, flexible; diagnostic, including collection of specimen(s) by brushing or washing, when performed (separate procedure) Diagnosis Code(s): --- Professional --- Z86.010, Personal history of colonic polyps K64.2, Third degree hemorrhoids K57.30, Diverticulosis of large intestine without perforation or abscess without bleeding CPT copyright 2017 [employer]. All rights reserved. The codes documented in this report are preliminary and upon plumbing contractor review may be revised to meet current compliance requirements. Benny Baltazar MD 02/16/2022 8:28:37 AM This report has been signed electronically. Number of Addenda: 0 Note Initiated On: 02/16/2022 8:07 AM
--- NOTE | 2022-02-16 08:30 | OP.CCLET_ITS ---
02/16/2022 Liseth Del Valle [address] [place] [address] Re : Colonoscopy procedure for Trevor Gresham Dear Dr. Del Valle This procedure was performed on Wednesday, February 16, 2022. My impressions and recommendations are as follows: Impressions : - Non-thrombosed internal hemorrhoids and internal hemorrhoids that prolapse with straining, but require manual replacement into the anal canal (Grade III) found on digital rectal exam. - Diverticulosis in the sigmoid colon. - No specimens collected. Recommendations : - Discharge patient to home. - Resume previous diet. - Continue present medications. - Repeat colonoscopy in 5 years for surveillance. - Return to my office in 5 days to compare and contrast PPH hemorrhoidopexy and surgical hemorrhoidectomy. Majority of his findings are internal hemorrhoids. My findings are described in the full procedure note, which is enclosed. If I can be of further assistance, please feel free to contact me at Doctor phone number(s): Work: . Sincerely, Benny Baltazar MD 02/16/2022 8:28:37 AM This report has been signed electronically.
== END 2022-02-16 09:27 | disposition home or self-care (01) ==
LOC: EN 06:53 → AC 06:55
PROVIDERS: PCP Family Medicine; Referring Provider Family Medicine; Visit Provider Surgery
PROC: 0DJD8ZZ Inspection of Lower Intestinal Tract, Via Natural or Artificial Opening Endoscopic (ICD-10-PCS; CPT 45378; principal; 2022-02-16 07:55)
DX: Z12.11 Encounter for screening for malignant neoplasm of colon (principal); K57.30 Diverticulosis of large intestine without perforation or abscess without bleeding; K64.2 Third degree hemorrhoids; I10 Essential (primary) hypertension; E78.5 Hyperlipidemia, unspecified; E07.9 Disorder of thyroid, unspecified; Z79.02 Long term (current) use of antithrombotics/antiplatelets; Z79.890 Hormone replacement therapy; Z79.899 Other long term (current) drug therapy; Z86.010 Personal history of colon polyps; Z86.73 Personal history of transient ischemic attack (TIA), and cerebral infarction without residual deficits; Z80.0 Family history of malignant neoplasm of digestive organs
CPT/HCPCS: G0121; J7120; J2405

== ENCOUNTER → 2022-07-13 | Outpatient (CLI) | payer MEDICARE, OTHER, SELFPAY ==
[2022-07-13 12:40] LABS: Absolute Lymphocyte Count 1.85 X10^3/uL (0.83-4.51); Absolute Neutrophil Count 3.4 X10^3/uL (2.0-7.7); Basophil# 0.05 X10^3/uL; Basophil% 0.9 % (0-1); Eosinophil# 0.11 X10^3/uL; Eosinophils% 1.9 % (0-5); Hematocrit 43.5 % (40-54); Hemoglobin 14.6 g/dL (13.0-16.5); Lymphocyte # 1.85 X10^3/ul (0.83-4.51); Lymphocyte % 31.5 % (19-41); Mean Corp Hgb Conc 33.6 g/dL (32-36); Mean Corpuscular Hgb 32.4 pg (27.0-32.0); Mean Corpuscular Volume 96.5 fL (80-94); Mean Platelet Vol. 11.4 fl (6.2-12.0); Monocyte# 0.49 X10^3/uL; Monocyte% 8.3 % (0-10); NRBC Flagged by Analyzer 0 % (0-5); Neutrophil # 3.36 X10^3/uL (2.7-7.7); Neutrophil % 57.2 % (47-70); Platelet Count 161 K/mm3 (150-450); RBC Distribution Width CV 11.9 % (11.6-14.6); RBC Distribution Width SD 41.8 fl (35.1-43.9); Red Blood Count 4.51 M/mm3 (4.6-6.2); White Blood Count 5.9 K/mm3 (4.4-11.0)
[2022-07-13 13:29] LABS: Hemoglobin A1c 5.8 % (3.8-5.6)
[2022-07-13 13:34] LABS: ALB/GLOB Ratio 1.1 RATIO (0.9-2.4); AST(SGOT) 38 U/L (15-37); Alanine Aminotransfer ALT/SGPT 43 U/L (16-61); Albumin, Serum 3.6 g/dL (3.2-5.0); Alkaline Phosphatase 36 U/L (45-117); Anion Gap 5 (5-15); BUN 20 mg/dL (7-18); BUN/Creat Ratio 17.9 RATIO (10-20); Calcium,Total 8.6 mg/dL (8.5-10.1); Chloride 107 mmol/L (98-107); Creatinine, Serum 1.12 mg/dL (0.70-1.30); EST Glomerular Filtration Rate 68 mL/min (>60); Est Glom Filt Rate - Afr Amer 83 mL/min (>60); Free T3 1.9 pg/mL (2.18-3.98); Globulin 3.2 g/dL (2.2-4.2); Glucose 107 mg/dL (74-106); PSA,Total - Annual Screen 4.04 ng/mL (0.00-4.00); Potassium 4.2 mmol/L (3.5-5.1); Protein, Total 6.8 g/dL (6.4-8.2); Sodium Level 141 mmol/L (136-145); T4 Free Direct 1.16 ng/dL (0.76-1.46); Thyroid Stim Hormone (TSH) 2.51 uIU/mL (0.358-3.74)
[2022-07-18 12:13] LABS: Cholesterol 110 mg/dL (200); High Density Lipoprotein 37 mg/dL; Triglycerides 89 mg/dL; Very Low Density Lipoprotein 18 mg/dL (5-40)
== END | disposition home or self-care (01) ==
LOC: MTLAB 10:32
PROVIDERS: PCP Family Medicine; Referring Provider Family Medicine; Visit Provider Family Medicine
DX: E03.9 Hypothyroidism, unspecified (principal); E78.5 Hyperlipidemia, unspecified; Z51.81 Encounter for therapeutic drug level monitoring; R73.02 Impaired glucose tolerance (oral); Z12.5 Encounter for screening for malignant neoplasm of prostate
CPT/HCPCS: 36415; 80053; 80061; 83036; 84153; 84439; 84443; 84481; 85025; G0103

== ENCOUNTER → 2023-01-17 | Outpatient (CLI) | payer MEDICARE, OTHER, SELFPAY ==
[2023-01-17 11:05] LABS: ALB/GLOB Ratio 1.1 RATIO (0.9-2.4); AST(SGOT) 30 U/L (15-37); Alanine Aminotransfer ALT/SGPT 31 U/L (16-61); Albumin, Serum 3.4 g/dL (3.2-5.0); Alkaline Phosphatase 41 U/L (45-117); Anion Gap 1 (5-15); BUN 19 mg/dL (7-18); BUN/Creat Ratio 17.1 RATIO (10-20); Calcium,Total 8.5 mg/dL (8.5-10.1); Chloride 105 mmol/L (98-107); Creatinine, Serum 1.11 mg/dL (0.70-1.30); EST Glomerular Filtration Rate 69 mL/min (>60); Est Glom Filt Rate - Afr Amer 84 mL/min (>60); Globulin 3.2 g/dL (2.2-4.2); Glucose 109 mg/dL (74-106); Potassium 3.6 mmol/L (3.5-5.1); Protein, Total 6.6 g/dL (6.4-8.2); Sodium Level 138 mmol/L (136-145); T4 Free Direct 1.24 ng/dL (0.76-1.46); Thyroid Stim Hormone (TSH) 4.64 uIU/mL (0.358-3.74)
== END | disposition home or self-care (01) ==
LOC: MTLAB 09:31
PROVIDERS: PCP Family Medicine; Referring Provider Family Medicine; Visit Provider Family Medicine
DX: E03.9 Hypothyroidism, unspecified (principal); Z51.81 Encounter for therapeutic drug level monitoring
CPT/HCPCS: 36415; 80053; 84439; 84443; 84481

== ENCOUNTER → 2023-04-29 | Outpatient (CLI) | payer MEDICARE, OTHER, SELFPAY ==
[2023-04-29 13:05] LABS: Free T3 2.2 pg/mL (2.18-3.98); T4 Free Direct 1.25 ng/dL (0.76-1.46); Thyroid Stim Hormone (TSH) 1.55 uIU/mL (0.358-3.74)
== END | disposition home or self-care (01) ==
PROVIDERS: PCP Family Medicine; Referring Provider Family Medicine; Visit Provider Family Medicine
DX: E89.0 Postprocedural hypothyroidism (principal)
CPT/HCPCS: 36415; 84439; 84443; 84481

== ENCOUNTER → 2023-07-25 | Outpatient (CLI) | payer MEDICARE, OTHER, SELFPAY ==
[2023-07-25 12:10] LABS: Absolute Lymphocyte Count 1.87 X10^3/uL (0.83-4.51); Absolute Neutrophil Count 3.6 X10^3/uL (2.0-7.7); Basophil# 0.05 X10^3/uL; Basophil% 0.8 % (0-1); Eosinophil# 0.17 X10^3/uL; Eosinophils% 2.7 % (0-5); Hematocrit 44.6 % (40-54); Lymphocyte # 1.87 X10^3/ul (0.83-4.51); Lymphocyte % 29.3 % (19-41); Mean Corp Hgb Conc 33.6 g/dL (32-36); Mean Corpuscular Volume 95.1 fL (80-94); Mean Platelet Vol. 11.3 fl (6.2-12.0); NRBC Flagged by Analyzer 0 % (0-5); Neutrophil # 3.58 X10^3/uL (2.7-7.7); Neutrophil % 55.9 % (47-70); Platelet Count 158 K/mm3 (150-450); RBC Distribution Width CV 11.9 % (11.6-14.6); RBC Distribution Width SD 41.1 fl (35.1-43.9); Red Blood Count 4.69 M/mm3 (4.6-6.2); White Blood Count 6.4 K/mm3 (4.4-11.0)
[2023-07-25 15:30] LABS: ALB/GLOB Ratio 1.2 RATIO (0.9-2.4); AST(SGOT) 40 U/L (15-37); Alanine Aminotransfer ALT/SGPT 39 U/L (16-61); Albumin, Serum 3.7 g/dL (3.2-5.0); Alkaline Phosphatase 41 U/L (45-117); Anion Gap 5 (5-15); BUN 21 mg/dL (7-18); BUN/Creat Ratio 18.3 RATIO (10-20); Calcium,Total 9.1 mg/dL (8.5-10.1); Chloride 106 mmol/L (98-107); Cholesterol 134 mg/dL (200); Creatinine, Serum 1.15 mg/dL (0.70-1.30); EST Glomerular Filtration Rate 66 mL/min (>60); Est Glom Filt Rate - Afr Amer 80 mL/min (>60); Free T3 2.4 pg/mL (2.18-3.98); Globulin 3.1 g/dL (2.2-4.2); Glucose 113 mg/dL (74-106); High Density Lipoprotein 39 mg/dL; PSA,Total - Annual Screen 4.05 ng/mL (0.00-4.00); Potassium 3.8 mmol/L (3.5-5.1); Protein, Total 6.8 g/dL (6.4-8.2); Sodium Level 139 mmol/L (136-145); T4 Free Direct 1.12 ng/dL (0.76-1.46); Thyroid Stim Hormone (TSH) 2.42 uIU/mL (0.358-3.74); Triglycerides 134 mg/dL; Very Low Density Lipoprotein 27 mg/dL (5-40)
[2023-07-25 15:42] LABS: Hemoglobin A1c 5.8 % (3.8-5.6)
== END | disposition home or self-care (01) ==
LOC: MTLAB 10:05
PROVIDERS: PCP Family Medicine; Referring Provider Family Medicine; Visit Provider Family Medicine
DX: Z12.5 Encounter for screening for malignant neoplasm of prostate (principal); E03.9 Hypothyroidism, unspecified; E78.5 Hyperlipidemia, unspecified; R73.02 Impaired glucose tolerance (oral); Z51.81 Encounter for therapeutic drug level monitoring
CPT/HCPCS: 36415; 80053; 80061; 83036; 84153; 84439; 84443; 84481; 85025; G0103

== ENCOUNTER → 2024-04-25 | Outpatient (CLI) | payer MEDICARE, OTHER, SELFPAY ==
[2024-04-25 11:03] LABS: Free T3 2.8 pg/mL (2.18-3.98); Thyroid Stim Hormone (TSH) 0.735 uIU/mL (0.300-4.200)
== END | disposition home or self-care (01) ==
LOC: LAB 10:25
PROVIDERS: PCP Family Medicine; Referring Provider Family Medicine; Visit Provider Family Medicine
DX: E89.0 Postprocedural hypothyroidism (principal)
CPT/HCPCS: 36415; 84439; 84443; 84481

== ENCOUNTER 2024-07-13 19:15 | Emergency (ER) | payer MEDICARE, OTHER, SELFPAY ==
[2024-07-13 19:16] VITALS: BP 138/84; PULSE 77; RESP 16; TEMP 36.6; O2SAT 96; BMI 29.8
[2024-07-13 20:15] VITALS: BP 134/85; PULSE 65; RESP 18; O2SAT 96
[2024-07-13 21:00] VITALS: BP 147/101; PULSE 64; RESP 18; O2SAT 95
--- NOTE | 2024-07-13 21:04 | EKG12_ITS ---
Test Reason : DIZZY Blood Pressure : */* mmHG Vent. Rate : 77 BPM Atrial Rate : 77 BPM P-R Int : 180 ms QRS Dur : 158 ms QT Int : 410 ms P-R-T Axes : 35 -22 12 degrees QTcB Int : 463 ms Sinus rhythm with frequent Premature ventricular complexes Right bundle branch block Abnormal ECG Confirmed by George Thomas ([id number]), editor managing director MIGUEL SQUIRES ([id number]) on 07/14/2024 10:02:18 AM Referred By: Confirmed By: George Thomas
--- NOTE | 2024-07-13 21:07 | EX.ED.DYSGE1 ---
HPI History of Present Illness Chief Complaint: Dizziness Narrative Narrative: Chief complaint and HPI: Irregular heartbeat. 74-year-old male with past medical history of CVA, HTN, HLD who follows with neurology and cardiology presents for evaluation of irregular heartbeat. Patient states he was following up with his neurologist when he told him that he noticed irregular heartbeats on his monitor at home. Neurologist felt his heart rate and felt as if he was skipping a beat and was worried about irregular heartbeat so sent him to the emergency department. Patient states he has been having intermittent lightheadedness but this is not abnormal for him with his CVAs. Denies any fever, chills, shortness of breath, chest pain, palpitations, abdominal pain, nausea, vomiting. States he has been eating and drinking well. Review of systems: See HPI Medications: As listed on the chart Allergies: As listed on the chart PFSH: Per chart Vital signs: As listed on the chart. Reviewed. Physical exam: Gen: A&O x3, NAD Head: Normocephalic, atraumatic Eyes: No sclera icterus, conjunctiva clear ENT: Moist mucous membranes Neck: Trachea midline, No JVD CV: RRR but intermittent pause in pulse when throws PVC on monitor, no murmurs, no peripheral edema Resp: Lungs CTA BL, no w/r/c GI: Abd soft, non-distended, non-tender, no r/r/g Musc: Full ROM, no deformity Skin: Warm, dry Neuro: Alert, oriented, grossly intact, sensation intact Psych: Cooperative, appropriate mood and affect [facility] Medical History Left shoulder pain Wears glasses Arthritis High cholesterol Back pain TIA (transient ischemic attack) Stroke/cerebrovascular accident Syncope Non-smoker Leg cramps History of echocardiogram Cardiology follow-up encounter Orthostatic hypotension Hemorrhoids Open fracture of distal phalanx of left middle finger Open fracture of distal phalanx of left index finger Laceration of left middle finger without foreign body with damage to nail Contact with powered saw as cause of accidental injury Laceration of left index finger without foreign body with damage to nail Injury of nail bed of finger of left hand Hypertension Cryptogenic stroke Obesity Rectal bleed Hypothyroidism Lightheadedness Right bundle branch block Essential (primary) hypertension HLD (hyperlipidemia) CVA (cerebral vascular accident) (10/2017) Home Medications ?Medication ?Instructions ?Recorded ?Last Taken ?Type clopidogrel 75 mg tablet 75 mg PO DAILY #30 tabs 10/28/17 02/13/22 Rx cholecalciferol (vitamin D3) 50 2,000 unit PO DAILY 11/27/17 10/21/18 History mcg (2,000 unit) capsule multivitamin 1 tab PO DAILY 11/27/17 10/21/18 History atorvastatin 40 mg tablet 40 mg PO QHS 05/25/19 Unknown History magnesium oxide 500 mg capsule 500 mg PO DAILY 05/25/19 Unknown History hydrochlorothiazide 12.5 mg tablet 12.5 mg PO BID 12/21/21 Unknown History lactobacillus combination no.9 4 4,000 mmu cells PO DAILY 12/21/21 Unknown History billion cell capsule (Adult 50 Plus Probiotic) levothyroxine 137 mcg tablet 137 mcg PO DAILY 12/21/21 Unknown History losartan 50 mg tablet 50 mg PO DAILY 30 days #30 tabs 06/16/24 Unknown History Allergy/AdvReac Type Severity Reaction Status Date / Time adhesive tape Allergy Mild Unknown Verified 07/13/24 19:16 methimazole (From Tapazole) Allergy Mild Unknown Verified 07/13/24 19:16 Sulfa (Sulfonamide Allergy PT CAN'T Verified 07/13/24 19:16 Antibiotics) REMEMBER Family History Mother CVA (cerebral vascular accident) Cancer Colon cancer Thyroid disorder Father Heart disease Hypertension Cancer Diabetes Brother Myocardial infarction from [place] Other Anxiety and depression Arthritis Bowel disease Psychiatric care Skin cancer Surgical History Hx of colonoscopy Hx of eye surgery History of loop recorder (12/13/17) History of carpal tunnel release Hx of LASIK H/O knee surgery History of tonsillectomy Social History Smoking Status: Never smoker second hand exposure: No alcohol intake: never substance use type: does not use caffeine: Yes frequency: does not exercise seatbelt use: always additional social history: DOES NOT USE ASPIRIN DOES NOT USE IBUPROFEN EXAM Physical Exam Const Vital Signs: 07/13/24 19:16 07/13/24 20:15 07/13/24 21:00 Temperature 97.9 F Temperature Source Temporal Pulse Rate 77 65 64 Respiratory Rate 16 18 18 Blood Pressure 138/84 H 134/85 H 147/101 H Blood Pressure Mean 102 101 116 Pulse Ox 96 96 95 Oxygen Delivery Method Room Air Room Air Room Air 07/13/24 22:00 07/13/24 22:25 Temperature 97.9 F Temperature Source Pulse Rate 61 60 Respiratory Rate 16 18 Blood Pressure 113/75 123/77 H Blood Pressure Mean 87 92 Pulse Ox 100 94 Oxygen Delivery Method MDM MDM MDM Narrative Medical decision making narrative: 74-year-old male with past medical history of CVA, HTN, HLD who follows with neurology and cardiology presents for evaluation of irregular heartbeat. Patient had a follow-up appointment with his neurologist today who was worried about irregular heartbeat and pauses which is why he sent the patient to the emergency department. Patient's only symptom is intermittent lightheadedness although states this is not abnormal for him given his history of CVAs. On presentation, patient's vitals are stable other than mild hypertension. He is in normal sinus rhythm with occasional PVCs on the monitor. Differential diagnosis includes but is not limited to PVCs, arrhythmia, electrolyte abnormality, thyroid disease, suspect like likely PE or ACS. Cardiac workup ordered. EKG and chest x-ray reviewed see below. CBC without leukocytosis or anemia. D-dimer unremarkable. BMP unremarkable without TERESA or significant electrolyte abnormality. Magnesium unremarkable. Troponin unremarkable. Patient not having chest pain therefore do not think delta needs to be obtained. BNP unremarkable. TSH unremarkable. Patient has remained in normal sinus rhythm here on the monitors except for his intermittent PVCs. I suspect that this is likely the cause of his symptoms. Follow-up with cardiology and PCP. Return precautions explained. He confirmed understanding the plan. Patient stable to discharge home EKG: Interpreted by me/EM physician: EKG shows normal sinus rhythm with a heart rate of 77. Right bundle branch block. PVCs. Diagnostic: Interpreted by me/EM physician: Chest x-ray without pneumonia, effusion, cardiomegaly, pneumothorax. Radiology in agreement. Impression: 1. Intermittent PVC 2. Chronic lightheadedness Lab Data Labs: Laboratory Results - last 24 hr 07/13/24 20:40 WBC 7.6 RBC 4.35 L Hgb 14.2 Hct 41.2 MCV 94.7 H MCH 32.6 H MCHC 34.5 RDW Std Deviation 41.2 RDW Coeff of Miguel 11.9 Plt Count 152 MPV 11.0 D-Dimer Quant (PE/DVT) < 0.27 L Sodium 137 Potassium 3.8 Chloride 102 Carbon Dioxide 23.6 Anion Gap 11 BUN 21 H Creatinine 1.09 Estim Creat Clear Calc 72.72 Est GFR (MDRD) Non-Af 71 BUN/Creatinine Ratio 19.3 Glucose 117 H Calcium 9.1 Magnesium 2.0 Troponin T High Sens 22 NT pro BNP II 143 TSH 1.870 Radiography Diagnostic Testing: Clinical Impression(s) from Imaging Studies Chest X-Ray 07/13/24 21:08 IMPRESSION: No acute cardiopulmonary abnormality. Reading Location: [id number] Discharge Plan Triage Chief Complaint: Dizziness ED Provider: Shaheen Prajapati Dx/Rx/DC Orders Clinical Impression: Frequent unifocal PVCs Instructions: PVCs, Premature Ventricular Contract Tx Prescriptions: No Action cholecalciferol (vitamin D3) 2,000 unit capsule 2,000 unit PO DAILY multivitamin tablet 1 tab PO DAILY losartan 50 mg tablet 50 mg PO DAILY 30 Days Qty: 30 Rx Instructions: take one half tablet AM and one tablet PM atorvastatin 40 mg tablet 40 mg PO QHS magnesium oxide 500 mg capsule 500 mg PO DAILY levothyroxine 137 mcg tablet 137 mcg PO DAILY hydrochlorothiazide 12.5 mg tablet 12.5 mg PO BID Adult 50 Plus Probiotic 4 billion cell capsule 4,000 mmu cells PO DAILY Rx Instructions: administer with a meal clopidogrel 75 MG tablet 75 mg PO DAILY Qty: 30 0RF Primary Care Provider: Liseth Del Valle Referrals: Henry Redmond MD [Med Staff - Active Staff] - 3-5 Days Liseth Del Valle DO [Primary Care Provider] - 3-5 Days Activity Restrictions/Additional Instructions: Follow-up with your police surgeon. Return back to the ED if symptoms change or worsen. Print Language: Ugandan Disposition Disposition: Home, Self Care Discharge Date/Time: 07/13/24 22:35
--- NOTE | 2024-07-13 21:08 | RAD_ITS ---
PROCEDURE: CHEST PA AND LATERAL 07/13/2024 REASON FOR EXAM: IRREGULAR HEARTBEAT TECHNIQUE: Frontal and lateral views of the chest. COMPARISON: Chest radiograph 11/29/2020 FINDINGS: Hardware: Leadless cardiac device projects over the heart. Heart: The heart size is normal. Mediastinum: The mediastinal contour is stable. Lungs: The lungs are clear. No pleural effusion. Bones: Degenerative changes are identified within the shoulders and thoracic spine. RAD/Chest PA and Lateral IMPRESSION: No acute cardiopulmonary abnormality. Reading Location: [id number]
[2024-07-13 21:20] LABS: Hematocrit 41.2 % (40-54); Hemoglobin 14.2 g/dL (13.0-16.5); Mean Corp Hgb Conc 34.5 g/dL (32-36); Mean Corpuscular Hgb 32.6 pg (27.0-32.0); Mean Corpuscular Volume 94.7 fL (80-94); Platelet Count 152 K/mm3 (150-450); RBC Distribution Width CV 11.9 % (11.6-14.6); RBC Distribution Width SD 41.2 fl (35.1-43.9); Red Blood Count 4.35 M/mm3 (4.6-6.2); White Blood Count 7.6 K/mm3 (4.4-11.0)
[2024-07-13 21:31] LABS: D-Dimer Quantitative (DVT/PE) < 0.27 FEU/ug/m (0.27-0.49)
[2024-07-13 22:00] VITALS: BP 113/75; PULSE 61; RESP 16; O2SAT 100
[2024-07-13 22:04] LABS: Pro- Brain NATRIURETIC PEPTIDE 143 pg/mL (<=900)
[2024-07-13 22:13] LABS: Anion Gap 11 (5-15); BUN 21 mg/dL (4-19); BUN/Creat Ratio 19.3 RATIO (10-20); Calcium,Total 9.1 mg/dL (7.6-11.0); Carbon Dioxide 23.6 mmol/L (21.0-32.0); Chloride 102 mmol/L (98-108); Creatinine, Serum 1.09 mg/dL (0.70-1.20); EST Glomerular Filtration Rate 71 (>60); Estimated Creatinine Clearance 72.72 ml/min (50-250); Glucose 117 mg/dL (70-99); Potassium 3.8 mmol/L (3.3-5.1); Sodium Level 137 mmol/L (133-145); Troponin T High Sensitivity 22 ng/L (<=22)
[2024-07-13 22:25] VITALS: BP 123/77; PULSE 60; RESP 18; TEMP 36.6; O2SAT 94
== END 2024-07-13 22:35 | disposition home or self-care (01) ==
PROVIDERS: Emergency Provider Surgery; PCP Family Medicine; Visit Provider Surgery
DX: I49.3 Ventricular premature depolarization (principal); R42 Dizziness and giddiness; I45.10 Unspecified right bundle-branch block; I10 Essential (primary) hypertension; E03.9 Hypothyroidism, unspecified; E78.00 Pure hypercholesterolemia, unspecified; Z79.02 Long term (current) use of antithrombotics/antiplatelets; Z86.73 Personal history of transient ischemic attack (TIA), and cerebral infarction without residual deficits; Z79.899 Other long term (current) drug therapy; Z79.890 Hormone replacement therapy
CPT/HCPCS: 71046; 80048; 83735; 83880; 84443; 84484; 85027; 85379; 93005; 99283; A4216

== ENCOUNTER → 2024-07-23 | Outpatient (CLI) | payer MEDICARE, OTHER, SELFPAY | END | disposition home or self-care (01) | LOC: PSN 13:41 | PROVIDERS: PCP Family Medicine; Referring Provider Nurse Practitioner Family; Visit Provider Nurse Practitioner Family | DX: I49.3 Ventricular premature depolarization (principal) | CPT/HCPCS: 93225; 93226 ==

== ENCOUNTER → 2024-07-29 | Outpatient (CLI) | payer MEDICARE, OTHER, SELFPAY ==
[2024-07-29 16:38] LABS: Cholesterol 116 mg/dL (<=200); High Density Lipoprotein 45 mg/dL; Low Density Lipoprotein Calc. 55 mg/dL; Triglycerides 81 mg/dL; Very Low Density Lipoprotein 16 mg/dL (5-40)
[2024-07-29 17:14] LABS: Free T3 2.4 pg/mL (2.18-3.98); PSA,Total - Annual Screen 3.98 ng/mL (0.02-4.00)
[2024-07-29 17:36] LABS: Hemoglobin A1c 6.1 % (<=5.6)
== END | disposition home or self-care (01) ==
LOC: MTLAB 13:21
PROVIDERS: PCP Family Medicine; Referring Provider Family Medicine; Visit Provider Family Medicine
DX: E03.9 Hypothyroidism, unspecified (principal); Z12.5 Encounter for screening for malignant neoplasm of prostate; E78.5 Hyperlipidemia, unspecified; Z51.81 Encounter for therapeutic drug level monitoring; R73.02 Impaired glucose tolerance (oral)
CPT/HCPCS: 36415; 80061; 83036; 84153; 84439; 84481; G0103

== ENCOUNTER 2024-08-24 06:36 | Day surgery (SDC) | payer MEDICARE, OTHER, SELFPAY ==
--- NOTE | 2024-08-21 15:25 | PAT.ANE_ITS ---
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 When Was Last Pacemaker Check QUESTION #4 FULL TEXT: You/Your Family Experience fever (hyperthermia) with Anesthesia Last Oral Intake Last Oral intake: Last Oral Intake NPO since Meds taken in AM with sips of water? Meds patient instructed to take am of surgery PONV PONV - interior design program chair: PONV - interior design program chair Female No 08/21/24 14:27 HX of Motion Sickness No 08/21/24 14:27 HX of N/V After Surgery No 08/21/24 14:27 Non-Smoker Yes 08/21/24 14:27 Duration of Surgery greater No 08/21/24 14:27 than 60 minutes Number of Risk Factors 1 08/21/24 14:27 PONV Score Low Risk 08/21/24 14:27 Height & Weight Height & Weight: Anesthesia: Height & Weight Height 6 ft 08/04/24 08:09 Respiratory Assessment Respiratory Assessment - interior design program chair: Respiratory Tract Infection Hx - interior design program chair Hx Respiratory Tract Infection No 08/21/24 14:27 STOP Sleep Apnea STOP Sleep Apnea - interior design program chair: STOP Sleep Apnea - interior design program chair Hx Hypertension Yes: CONTROLLED WITH MEDS 08/21/24 14:27 Hx Sleep Apnea No 08/21/24 14:27 CPAP No 08/21/24 14:27 BIPAP No 08/21/24 14:27 Do you snore loudly (louder No 08/21/24 14:27 than talking or can be heard Do you often feel tired/ Yes 08/21/24 14:27 fatigued/ sleepy during daytime? Has anyone observed you stop No 08/21/24 14:27 breathing during sleep? STOP Results Positive 08/21/24 14:27 QUESTION #5 FULL TEXT : Do you snore loudly (louder than talking or can be heard through closed doors)? 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 Specify any problems Hx of Preganancy in last 3 N/A 08/21/24 14:27 Months Nurse Filling Out Transfusion DSCHRIBER 08/21/24 14:27 & Questions: Date: 08/21/24 08/21/24 14:27 Time: 14:29 08/21/24 14:27 Patient unable to answer at this time (ie. confused, unrespo /Reproduction History /Reproductive History - interior design program chair: /Reproductive Hx- interior design program chair Hx Now Gestational Age (in weeks): EDC: Hx Hx Para Hx Section SAB No 08/21/24 14:27 PFSH Medical History (Updated 08/21/24 @ 14:36 by Madhavi Fernandez) Gastric reflux History of normal Holter exam History of stress test History of irregular heartbeat Left shoulder pain Wears glasses Arthritis High cholesterol Back pain TIA (transient ischemic attack) Stroke/cerebrovascular accident Syncope Non-smoker Leg cramps History of echocardiogram Cardiology follow-up encounter Hemorrhoids Open fracture of distal phalanx of left middle finger Open fracture of distal phalanx of left index finger Laceration of left middle finger without foreign body with damage to nail Contact with powered saw as cause of accidental injury Laceration of left index finger without foreign body with damage to nail Injury of nail bed of finger of left hand Hypertension Cryptogenic stroke Obesity Rectal bleed Hypothyroidism Lightheadedness Right bundle branch block Essential (primary) hypertension HLD (hyperlipidemia) CVA (cerebral vascular accident) (10/2017) Home Medications ?Medication ?Instructions ?Recorded ?Last Taken ?Type clopidogrel 75 mg tablet 75 mg PO DAILY #30 tabs 10/1208/17/24 Rx cholecalciferol (vitamin D3) 50 2,000 unit PO DAILY 10/21/18 History mcg (2,000 unit) capsule multivitamin 1 tab PO DAILY 11/27/1710/12 History atorvastatin 40 mg tablet 40 mg PO DAILY 05/25/19 Unkn own History magnesium oxide 500 mg capsule 500 mg PO DAILY 0 Unknown History hydrochlorothiazide 12.5 mg tablet 12.5 mg PO BID 12/12 Unknown History lactobacillus combination no.9 4 4,000 mmu cells PO DA VEE 12/21/21 Unknown History billion cell capsule (Adult 50 Plus Probiotic) levothyroxine 137 mcg tablet 137 mcg PO DAILY 12/21/21 Unknown History losartan 50 mg tablet 50 mg PO DAILY 30 days #30 t abs 06/16/24 Unknown History hydrocortisone 2.5 % topical cream 1 applic topical BI D PRN itching 07/16/24 Un known History loratadine 10 mg tablet 10 mg PO QDAY PRN allergy sy mptoms 07/16/24 Unknown History saw palmetto 450 mg capsule 450 mg PO QDAY 07/16/24 Un known History Allergy/AdvReac Type Severity Reaction Status Date / Time adhesive tape Allergy Mild Unknown Verified 08/21/24 14:21 methimazole (From Tapazole) Allergy Mild Unknown Verified 08/21/24 14:21 Sulfa (Sulfonamide Allergy PT CAN'T Verified 08/21/24 14:21 Antibiotics) REMEMBER Family History Mother CVA (cerebral vascular accident) Cancer Colon cancer Thyroid disorder Father Heart disease Hypertension Cancer Diabetes Brother Myocardial infarction from [place] Other Anxiety and depression Arthritis Bowel disease Psychiatric care Skin cancer Surgical History Hx of colonoscopy Hx of eye surgery History of loop recorder (12/13/17) History of carpal tunnel release Hx of LASIK H/O knee surgery History of tonsillectomy Social History Smoking Status: Never smoker second hand exposure: No alcohol intake: never substance use type: does not use caffeine: Yes frequency: does not exercise seatbelt use: always additional social history: DOES NOT USE ASPIRIN DOES NOT USE IBUPROFEN Audit: Pertinent Findings Pertinent Findings EKG Perinent findings: 07/13/2024. Sinus rhythm 77 bpm. Frequent PVCs. Right bundle branch block. Echo (EF%) pertinent findings: 10/27/2017. Normal size function EF 60%. Consult pertinent findings: Cardiology 08/04/2024. CVA. Chronic. Mechanism. Embolism. Bradycardia. 14-day event monitor average heart rate of 74. Holter 62 bpm. Currently no significant dysrhythmia. Hypertension. Chronic. Stable. Frequent unifocal PVCs. Recommendation Anesthesia Recommendation Anesthesia recommendation: OPTIMIZED for anesthesia
[2024-08-24] VITALS (8 sets, daily range): BP systolic 88–148; BP diastolic 57–79; PULSE 50–54; RESP 16; TEMP 36.1–36.7; O2SAT 93–98; BMI 29.6
--- OUTSIDE RECORDS SUMMARY | 2024-08-24 06:39 | XMS RPT_ITS | CCD ---
Author Organization [facility] CliniSyaz Care Team Providers Care Customer Service Engineer Name Role Phone IMCA Unavailable Unavailable RAMSEYHANSEL THOMAS Unavailable Unavailable RAMSEYHANSEL Unavailable Unavailable IMCA Unavailable Unavailable RAMSEYHANSEL THOMAS Unavailable Unavailable RAMSEYHANSEL Unavailable Unavailable IMCA Unavailable Unavailable IMCA Unavailable Unavailable HANSEL RAMSEY Unavailable Unavailable Liseth Del Valle DO Primary Care Provider Dr. Liseth Del Valle Primary Care Provider Dr. Henry Redmond Attending Provider [phone] Henry Redmond Referring Provider [phone] Liseth Del Valle Primary Care Provider Dr. Liseth Del Valle Referring Provider [phone] DIMITRI Vasquez NP Attending Provider Dr. Liseth Del Valle Primary Care Provider Dr. Liseth Del Valle Referring Provider [phone] Henry Redmond Attending Provider [phone] Benny Baltazar Attending Provider Liseth Del Valle DO Primary Care Provider Dr. Liseth Del Valle Primary Care Provider [phone] Dr. Liseth Del Valle Referring Provider [phone] RANDY Rosales Attending Provider Liseth Del Valle DO Primary Care Provider Dr. Liseth Del Valle DO Primary Care Provider [phone] Dr. Liseth Del Valle DO Attending Provider [phone] Childers Referring Provider Dennis Lara Attending Provider Mitali Singh Attending Provider [phone] Fritz URRUTIA, Avery Attending Provider Nyla URRUTIA, Dr. Figureoa Attending Provider [phone] [facility] Dr. Jamison Emergency Provider Roof TANDEM MILL STICKER-C, Akira H [facility]ending [facility] Jam[facility] Attending Provider Roof TANDEM MILL STICKER-C, Akira H Referring Provider [phone] SELF Referring Unavailable MALYS, LISETH A Primary Care Unavailable SELF Referring Unavailable MALYS, LISETH A Primary Care Unavailable HANSEL RAMSEY JR Attending Unavailable MALYS, LISETH A Primary Care Unavailable MALYS, LISETH A Primary Care Unavailable MALYS, LISETH A Primary Care Unavailable Malys, Liseth Attending Unavailable Malys, Liseth Primary Care Unavailable Malys, Liseth Referring Unavailable Malys, Liseth Primary Care Unavailable SharadShaheen Washburn Attending Unavailabl e Malys, Liseth Attending Unavailable Malys, Liseth Referring Unavailable Malys, Liseth Primary Care Unavailable Roof, Akira H Attending Unavailable Roof, Akira H Referring Unavailable Malys, Liseth Primary Care Unavailable Mitali Sheth Attending Unavailable Malys, Liseth Referring Unavailable Malys, Liseth Primary Care Unavailable Henry Redmond Attending Unavailable Roof, Akira H Referring Unavailable Malys, Liseth Primary Care Unavailable Henry Redmond Attending Unavailable Malys, Liseth Primary Care Unavailable Roof, Akira H Attending Unavailable Malys, Liseth Referring Unavailable Malys, Liseth Primary Care Unavailable Roof, Akira H Attending Unavailable Malys, Liseth Referring Unavailable Malys, Liseth Primary Care Unavailable Dennis Palmer Attending Unavailable Malys, Liseth Referring Unavailable Malys, Liseth Primary Care Unavailable Avery Hu Attending Unavailable Malys, Liseth Referring Unavailable Malys, Liseth Primary Care Unavailable Marty, Alberto Attending Unavailable Malys, Liseth Primary Care Unavailable Malys, Liseth Referring Unavailable Malys, Liseth Attending Unavailable Malys, Liseth Primary Care Unavailable Malys, Liseth Referring Unavailable Akira Ramon Attending Unavailable Akira Ramon Referring Unavailable Liseth Del Valle Primary Care Unavailable Allergies Allergy Classification Reported Allergen(s) Allergy Type Date of Onset Reaction(s) Facility (14 sources) Adhesive agent; Translations: [ADHESIVE] Propensity to adverse reactions (disorder) 7 Rash [facility] Repository (20 sources) methIMAzole; Translations: [METHIMAZOLE] Drug Allergy 0 Rash [facility] Repository (20 sources) Sulfonamides (Antibiotic); Translations: [SULFA (SULFONAMIDE ANTIBIOTICS)] Propensity to adverse reactions (disorder) 5 PT CAN'T REMEMBER [facility] Repository (13 sources) Adhesive Tape; Translations: [adhesive tape] Allergy to substance 1 Unknown [facility] Medications Current Medications Medication Drug Class(es) Dates Sig (Normalized) Sig (Original) atorvastatin 40 mg oral tablet (20 sources) HMG-CoA Reductase Inhibitor Start: 07-05-2016 End: 05-25-2019 take 1 tablet by mouth once daily atorvastatin (LIPITOR) 40 mg tablet Take 1 tablet by mouth once daily. 90 tablet 3 09/24/2016 Active Comment on above: Take 1 tablet by serg th once daily. cholecalciferol 0.05 mg oral capsule (20 sources) Vitamin D Start: 11-27-2017 take 1 capsule by mouth once daily Cholecalciferol (Vitamin D3) 2,000 unit capsule Active 2000 U PO DAILY November 27, 2017 12:00am Start: 12-17-2012 take 1 tablet by serg th once daily Cholecalciferol, Vitamin D3, (VITAMIN D-3) 2,000 unit tab Take 1 tablet by mouth once daily. 360 tablet 1 12/17/2012 Active Comment on above: Take 1 tablet by serg th once daily. clopidogrel 75 mg oral tablet (20 sources) P2Y12 Platelet Inhibitor Start: 2017 take 1 tablet by mouth once daily Clopidogrel 75 MG tablet Active 75 mg PO DAILY October 28, 2017 12:00am Comment on above: Take 75 mg by mouth once daily. hydroCHLOROthiazide 12.5 mg oral tablet (20 sources) Thiazide Diuretic Start: 2021 take 12.5 mg by mouth once daily Hydrochlorothiazide Active 12.5 MG PO DAILY December 21, 2021 12:00am Start: 08-01-2021 End: 12-21-2021 take 1 tablet by mouth twice daily Hydrochlorothiazide 25 mg tablet Discontinued 25 mg PO TWICE A DAY August 01, 2021 3:55pm December 21, 2021 4:24pm Start: 04-19-2021 take 1 tablet by serg th twice daily hydroCHLOROthiazide (HYDRODIURIL, ESIDRIX) 12.5 mg tablet Take 12.5 mg by mouth twice daily. 04/19/2021 Active Start: 12-16-2020 End: 08-01-2021 take 1 tablet by mouth once daily Hydrochlorothiazide 25 mg tablet Discontinued 25 mg PO DAILY December 16, 2020 9:12am August 01, 2021 3:55pm Start: 11-29-2020 End: 12-16-2020 take 1 tablet by mouth once daily Hydrochlorothiazide 12.5 mg tablet Discontinued 12.5 mg PO DAILY November 29, 2020 12:00am December 16, 2020 9:13am Comment on above: Take 12.5 mg by mout h twice daily. hydrocortisone 25 mg/ml topical cream (16 sources) Corticosteroid Start: 07-16-2024 Hydrocortisone 2.5 % cream Active 1 NMA TOPICAL TWICE A DAY as needed July 16, 2024 12:00am Start: 10-27-2017 End: 05-29-2018 apply 453.6 g topically once daily as needed Hydrocortisone 453.6 GM cream Discontinued 453.6 g TOPICAL DAILY NEEDED as needed for Rash/Topical Irritation October 27, 2017 12:00am May 29, 2018 3:33pm Lactobacillus Combination No.9 (Adult 50 Plus Probiotic) 4 billion cell capsule (10 sources) Start: 12-21-2021 take 4 capsules by mouth once daily Lactobacillus Combination No.9 (Adult 50 Plus Probiotic) 4 billion cell capsule Active 4000 NMA PO DAILY December 21, 2021 1:00am administer with a meal Start: 12-21-2021 take 4 capsules by m outh once daily Lactobacillus Combination No.9 (Adult 50 Plus Probiotic) 4 billion cell capsule Active 4000 MMU CELLS PO DAILY December 21, 2021 1:00am administer with a meal Start: 12-21-2021 take 4 capsules by m outh once daily Lactobacillus Combination No.9 (Adult 50 Plus Probiotic) 4 billion cell capsule Active 4000 MMU CELLS PO DAILY December 21, 2021 12:00am administer with a meal levothyroxine sodium 0.137 mg oral tablet (20 sources) l-Thyroxine Start: 11-12-2021 take 1 tablet by mouth once daily levothyroxine (SYNTHROID) 137 mcg tablet Take 1 tablet by mouth once daily. 11/12/2021 Active Start: 08-01-2021 End: 12-21-2021 Levothyroxine 175 mcg tablet Discontinued 137 ug PO DAILY August 01, 2021 3:54pm December 21, 2021 4:24pm Start: 08-01-2021 End: 12-21-2021 take 137 ug by mouth once daily Levothyroxine Disconti nued 137 MCG PO DAILY August 01, 2021 3:54pm December 21, 2021 4:24pm Start: 10-27-2017 End: 11-27-2017 take 1 tablet by mouth once daily Levothyroxine 100 MCG tablet Discontinued 100 ug PO DAILY October 27, 2017 12:00am November 27, 2017 9:18am Start: 10-27-2017 End: 11-27-2017 take 1 tablet by mouth once daily Levothyroxine 88 MCG tablet Discontinued 88 ug PO DAILY October 27, 2017 12:00am November 27, 2017 9:17am Start: 11-29-2015 End: 08-01-2021 take 1 tablet by mouth once daily for thyroid dysfunction levothyroxine (LEVOXYL) 175 mcg tablet Indications: Postablative hypothyroidism Take 1 tablet by mouth once daily. Take on empty stomach. For thyroid. 90 tablet 4 11/29/2015 Active Comment on above: Take 1 tablet by serg th once daily. Take on empty stomach. For thyroid. Take 1 tablet by serg th once daily. loratadine 10 mg oral tablet (16 sources) Start: 5 take 1 tablet by mouth once daily as needed Loratadine 10 mg tablet Active 10 mg PO daily as needed July 16, 2024 12:00am Comment on above: Take 10 mg by mouth once daily. losartan potassium 50 mg oral tablet (20 sources) Angiotensin 2 Receptor Kaia Start: End: 5 take 1 tablet by mouth in the evening losartan (COZAAR) 50 mg tablet Take 50 mg by mouth as directed. /2 tablet in the AM & 1 tablet in the evening 05/26/2020 Active Start: 05-29-2018 End: 12-16-2020 Losartan 50 mg tablet Discon tinued 75 mg PO DAILY May 29, 2018 12:00am December 16, 2020 8:36am Start: 05-29-2018 End: 12-16-2020 Losartan Active 75 MG PO CK LY December 16, 2020 8:34am take one half tablet AM and one tablet PM Comment on above: Take 50 mg by mouth once daily. Take 50 mg by mouth as directed. 1/2 tablet in the AM & 1 tablet in the evening Magnesium (12 sources) take 500 mg by mouth once daily MAGNESIUM ORAL Take 500 mg by mouth once daily. Active take 500 mg by mouth once daily MAGNESIUM ORAL Take 500 mg by mouth once daily. 0 Active MAGNESIUM ORAL T alicia by mouth. 0 Active Comment on above: Take by mouth. Take 500 mg by mouth once daily. magnesium oxide 500 mg oral capsule (20 sources) Start: 05-25-2019 take 1 capsule by mouth once daily Magnesium Oxide 500 mg capsule Active 500 mg PO DAILY May 25, 2019 12:00am Start: 05-29-2018 End: 05-25-2019 take 1 capsule by mouth once daily Magnesium Oxide 400 mg capsule Discontinued 400 mg PO DAILY May 29, 2018 12:00am May 25, 2019 2:39pm Start: 11-27-2017 End: 05-29-2018 Magnesium Oxide 400 mg capsu le Discontinued 250 mg PO DAILY November 27, 2017 12:00am May 29, 2018 3:33pm Multivitamin preparation (6 sources) Start: 11-27-2017 take 1 tablet by mouth once daily Multivitamin Active 1 TABLET PO DAILY November 27, 2017 9:19am Start: 11-27-2017 take 1 tablet by serg th once daily Multivitamin Active 1 TABLET PO DAILY November 26, 2017 11:00pm Start: 11-27-2017 take 1 tablet by serg th once daily Multivitamin Active 1 TABLET PO DAILY November 27, 2017 12:00am Multivitamin tablet (6 sources) Start: 11-27-2017 Multivitamin t ablet Active 1 {tbl} PO DAILY November 27, 2017 12:00am Ovadwmcanacov-Iaayfvea-Xxsed n (MULTIVITAMIN 50 PLUS) tab (12 sources) Multivitamins-Mi nerals-Lutein (MULTIVITAMIN 50 PLUS) tab Take 1 tablet by mouth once daily. Active Multivitamins-Mi nerals-Lutein (MULTIVITAMIN 50 PLUS) tab Take 1 tablet by mouth once daily. 0 Active Comment on above: Take 1 tablet by serg th once daily. Saw Oriska (4 sources) Start: 07-16-2024 take 1 capsule by mouth once daily Saw Oriska 450 mg capsule Active 450 mg PO daily July 16, 2024 12:00am Saw Oriska Fruit 450 mg cap (10 sources) take 1 capsule by mouth once daily Saw Oriska Fruit 450 mg cap Take 450 mg by mouth once daily. Active take 1 capsule by mouth once ck ly Saw Oriska Fruit 450 mg cap Take 450 mg by mouth once daily. 0 Active Comment on above: Take 450 mg by mouth once daily. Completed/Discontinued Medications Medication Drug Class(es) Dates Sig (Normalized) Sig (Original) acetaminophen 325 mg / HYDROcodone bitartrate 5 mg oral tablet (12 sources) Opioid Agonist Start: 10-21-2018 End: 10-24-2018 Hydrocodone-Acetami nophen 1 TABLET tablet Discontinued 1 {tbl} PO EVERY 6 HOURS NEEDED as needed for Pain 11 13October 21, 2018 October 22, 2018 12:00am October 24, 2018 12:11am Start: 10-20-2018 End: 10-24-2018 take 1 tablet by mouth every six hours as needed Hydrocodone-Acetaminophen Discontinued 1 TABLET PO EVERY 6 HOURS NEEDED 11 13October 21, 2018 October 24, 2018 12:11am acetaminophen 325 mg / oxyCODONE hydrochloride 5 mg oral tablet (12 sources) Opioid Agonist Start: 10-29-2018 End: 12-04-2018 Oxycodone-Acetaminophen (Percocet) 5-325 mg tablet Discontinued 1 {tbl} PO 4 TIMES DAILY as needed for pain October 29, 2018 December 04, 2018 2:31pm amLODIPine 2.5 mg oral tablet (12 sources) Dihydropyridine Calcium Channel Kaia Start: 01-09-2018 End: 05-29-2018 take 3 tablets by mouth once daily Amlodipine 2.5 mg tablet Discontinued 7.5 mg PO DAILY January 09, 2018 1:00am May 29, 2018 3:32pm Start: 01-09-2018 End: 05-29-2018 take 7.5 mg by mouth once daily Amlodipine Discontinued 7.5 MG PO DAILY January 09, 2018 1:00am May 29, 2018 3:32pm amoxicillin 875 mg / clavulanate 125 mg oral tablet (20 sources) Penicillin-class Antibacterial Start: 10-29-2018 End: 05-25-2019 Amoxicillin-Pot Clavulanate (Augmentin) 875-125 mg tablet Discontinued 1 {tbl} PO TWICE A DAY November 24, 2018 2:30pm May 25, 2019 2:40pm doxycycline monohydrate 100 mg oral tablet (20 sources) Tetracycline-class Drug Start: 11-24-2018 End: 12-24-2018 take 1 tablet by mouth twice daily Doxycycline Monohydrate 100 mg tablet Discontinued 100 mg PO TWICE A DAY 60 November 24, 2018 12:00am December 23, 2018 1:00am December 24, 2018 1:07am Start: 10-29-2018 End: 11-24-2018 take 1 capsule by mouth twice daily Doxycycline Hyclate 100 mg capsule Discontinued 100 mg PO TWICE A DAY October 29, 2018 12:00am November 24, 2018 2:30pm Start: 10-20-2018 End: 11-24-2018 take 1 capsule by mouth twice daily Doxycycline Monohydrate 100 mg capsule Discontinued 100 mg PO TWICE A DAY November 10, 2018 10:57am November 24, 2018 2:30pm HYDROmorphone hydrochloride 2 mg oral tablet (12 sources) Opioid Agonist Start: 10-21-2018 End: 11-01-2018 take 1 tablet by mouth every four hours as needed for pain Hydromorphone 2 MG tablet Discontinued 2 mg PO EVERY 4 HOURS NEEDED as needed for Pain 40 7 October 21, 2018 October 27, 2018 12:00am November 01, 2018 12:09am 40 tabs (forty) levoFLOXacin 500 mg oral tablet (20 sources) Quinolone Antimicrobial Start: 10-24-2018 End: 12-24-2018 take 1 tablet by mouth once daily Levofloxacin 500 mg tablet Discontinued 500 mg PO DAILY November 24, 2018 12:00am December 23, 2018 1:00am December 24, 2018 1:07am triamcinolone acetonide 0.001 mg/mg topical ointment (20 sources) Corticosteroid Start: 07-03-2016 End: 06-16-2024 Triamcinolone Acetonide 1 APPLIC ointment Discontinued 1 NMA TOPICAL DAILY July 03, 2016 12:00am June 16, 2024 2:32pm Start: 07-03-2016 Triamcinolone Acetonide Active 1 APPLIC TOPICAL DAILY July 03, 2016 12:00am triamcinolone ac etonide (KENALOG) 0.1 % cream Indications: Psoriasis Apply to affected area twice daily. Active Comment on above: Apply to affected ar ea twice daily. Problems Active Problems Problem Classification Problem Date Documented Da te Episodic/Chronic Abdominal hernia (1 source) Unilateral inguinal hernia, without obstruction or gangrene, not specified as recurrent; Translations: [Unilateral inguinal hernia, without obstruction or gangrene, not specified as recurrent] Onset: 5 Episodic Acute cerebrovascular disease (20 sources) Cerebrovascular accident; Translations: [Cerebral infarction, unspecified] Onset: 8 11-01-2017 Chronic Comment on above: MRI brain 07/03/16 wi th focal subcortical acute infarcts within the high right frontal border zone region and the left posterior border zone region abutting the central sulcus likely within the central gyrus; MRI showed an acute left parietal lacunar infarct. 10/2017 Cardiac dysrhythmias (16 sources) Unifocal PVCs; Translations: [Ventricular premature depolarization] Onset: 5 07-13-2024 Chronic Cardiac dysrhythmias (20 sources) Bradycardia; Translations: [Bradycardia, unspecified] Onset: 5 08-20-2022 Episodic Complications of surgical procedures or medical care (13 sources) Postablative hypothyroidism; Translations: [Postprocedural hypothyroidism] Onset: 9 02-06-2021 Chronic Conditions associated with dizziness or vertigo (20 sources) Lightheadedness; Translations: [Dizziness and giddiness] Onset: 5 Episodic Conduction disorders (13 sources) Right bundle branch block; Translations: [Unspecified right bundle-branch block] Chronic Disorders of lipid metabolism (16 sources) Hyperlipidemia; Translations: [Hyperlipidemia, unspecified] Onset: 5 Chronic Esophageal disorders (5 sources) Gastroesophageal reflux disease; Translations: [Gastro-esophageal reflux disease without esophagitis] 06-16-2024 Chronic Essential hypertension (20 sources) Essential hypertension; Translations: [Essential (primary) hypertension] Onset: 7 07-10-2016 Chronic Nonspecific chest pain (5 sources) Chest pain; Translations: [Chest pain, unspecified] Onset: 5 08-17-2024 Episodic Other and unspecified benign neoplasm (10 sources) History of polyp of colon; Translations: [Personal history of colonic polyps] 01-15-2022 Episodic Other and unspecified benign neoplasm (1 source) Personal history of colonic polyps; Translations: [Personal history of colonic polyps] Episodic Other gastrointestinal disorders (10 sources) Burping; Translations: [Eructation] 06-16-2024 Episodic Other inflammatory condition of skin (12 sources) Psoriasis; Translations: [Psoriasis, unspecified] Onset: 6 08-15-2015 Chronic Other non-traumatic joint disorders (11 sources) Pain in left shoulder; Translations: [Left shoulder pain] Onset: 5 06-18-2024 Episodic Residual codes; unclassified (17 sources) Obstructive sleep apnea syndrome; Translations: [Obstructive sleep apnea (adult) (pediatric)] Onset: 8 Chronic Residual codes; unclassified (1 source) Obstructive sleep apnea (adult) (pediatric); Translations: [Obstructive sleep apnea syndrome] Onset: 5 Chronic Spondylosis; intervertebral disc disorders; other back problems (12 sources) Arthropathy of lumbar facet joint; Translations: [Spondylosis without myelopathy or radiculopathy, lumbar region] Onset: 8 11-12-2017 Chronic Thyroid disorders (19 sources) Hyperthyroidism; Translations: [Thyrotoxicosis, unspecified without thyrotoxic crisis or storm] Onset: 0 Resolved: 0 11-09-2009 Chronic Unclassified (1 source) Unknown / UNK(Unknown) Onset: 8 Past or Other Problems Problem Classification Problem Date Documented Date Episodic/Chronic Diabetes mellitus without complication (12 sources) Impaired fasting glycemia; Translations: [Impaired fasting glucose] Onset: 01-23-2009 01-23-2009 Episodic Hemorrhoids (20 sources) Hemorrhoids; Translations: [Unspecified hemorrhoids] Onset: 01-13-2009 01-13-2009 Episodic Malaise and fatigue (20 sources) Malaise and fatigue; Translations: [Other malaise] Onset: 12-02-2017 12-02-2017 Episodic Other circulatory disease (20 sources) Orthostatic hypotension; Translations: [Orthostatic hypotension] Onset: 12-02-2017 Episodic Other circulatory disease (17 sources) History of cerebrovascular accident; Translations: [Personal history of transient ischemic attack (TIA), and cerebral infarction without residual deficits] Onset: 06-23-2018 Episodic Other circulatory disease (1 source) Personal history of transient ischemic attack (TIA), and cerebral infarction without residual deficits; Translations: [History of stroke] Onset: 06-23-2018 Episodic Other skin disorders (12 sources) Eruption; Translations: [Rash and other nonspecific skin eruption] Onset: 01-23-2009 01-23-2009 Episodic Residual codes; unclassified (2 sources) Other specified postprocedural states; Translations: [Personal history of surgery to other organs] Onset: 12-13-2017 Episodic Spondylosis; intervertebral disc disorders; other back problems (20 sources) Low back pain; Translations: [Low back pain] Onset: 01-23-2009 01-23-2009 Episodic Unclassified (1 source) Spinal stenosis, lumbar region without neurogenic claudication Onset: 12-02-2017 Results Test Name Value Interpretation Reference Range Facility MR/PATCayetano 08-21-2024 /PAT.[facility] Medical Records Department [address] [place] [address] PAT - Anesthesia 08/21/24 1525 MR#: [id number] Acct: [id number] Name: JAYCETREVOR FELICITA Rep #: [id number] : 1950 74 From: Clinton Lala MD PCP: Dr. 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 When Was Last Pacemaker Check QUESTION #4 FULL TEXT: You/Your Family Experience fever (hyperthermia) with Anesthesia Last Oral Intake Last Oral intake: Last Oral Intake NPO since Meds taken in AM with sips of water? Meds patient instructed to take am of surgery PONV PONV - geography instructor: PONV - geography instructor Female No 08/21/24 14:27 HX of Motion Sickness No 08/21/24 14:27 HX of N/V After Surgery No 08/21/24 14:27 Non-Smoker Yes 08/21/24 14:27 Duration of Surgery greater No 08/21/24 14:27 than 60 minutes Number of Risk Factors 1 08/21/24 14:27 PONV Score Low Risk 08/21/24 14:27 Height Weight Height Weight: Anesthesia: Height Weight Height 6 ft 08/04/24 08:09 Respiratory Assessment Respiratory Assessment - geography instructor: Respiratory Tract Infection Hx - geography instructor Hx Respiratory Tract Infection No 08/21/24 14:27 STOP Sleep Apnea STOP Sleep Apnea - geography instructor: STOP Sleep Apnea - geography instructor Hx Hypertension Yes: CONTROLLED WITH MEDS 08/21/24 14:27 Hx Sleep Apnea No 08/21/24 14:27 CPAP No 08/21/24 14:27 BIPAP No 08/21/24 14:27 Do you snore loudly (louder No 08/21/24 14:27 than talking or can be heard Do you often feel tired/ Yes 08/21/24 14:27 fatigued/ sleepy during daytime? Has anyone observed you stop No 08/21/24 14:27 breathing during sleep? STOP Results Positive 08/21/24 14:27 QUESTION #5 FULL TEXT : Do you snore loudly (louder than talking or can be heard through closed doors)? Tobacco Use History Tobacco Use History - geography instructor: Tobacco Use History - geography instructor Tobacco Use Smoking Status Never smoker 08/21/24 14:27 Hx Tobacco Use No 08/21/24 14:27 Years Smoking Packs Smoked per Day Smoking Cessation Date was within the last 15 years Hx Smoking Cessation Date Hx Smoking Cessation No 08/21/24 14:27 Counseling Hematologic Medial History Hematologic Hx - geography instructor: Hematologic Medical Hx - rn behavioral health Hx of Blood Transfusion No 08/21/24 14:27 Hx of Transfusion in last 3 No 08/21/24 14:27 Months Date of Last Transfusion (if within last 3 months) Ever experience any problems No 08/21/24 14:27 with transfusion(s)? Specify any problems Hx of Preganancy in last 3 N/A 08/21/24 14:27 Months Nurse Filling Out Transfusion DSCHRIBER 08/21/24 14:27 Questions: Date: 08/21/24 08/21/24 14:27 Time: 14:29 08/21/24 14:27 Patient unable to answer at this time (ie. confused, unrespo /Reproductio n History /Reproductiv e History - geography instructor: /Reproductiv e Hx- geography instructor Hx Now Gestational Age (in weeks): EDC: Hx Hx Para Hx Section SAB No 08/21/24 14:27 [facility] Medical History (Updated 08/21/24 @ 14:36 by Madhavi Fernandez) Gastric reflux History of normal Holter exam History of stress test History of irregular heartbeat Left shoulder pain Wears glasses Arthritis High cholesterol Back pain TIA (transient ischemic attack) Stroke/cerebrovascula r accident Syncope Non-smoker Leg cramps History of echocardiogram Cardiology follow-up encounter Hemorrhoids Open fracture of distal phalanx of left middle finger Open fracture of distal phalanx of left index finger Laceration of left middle finger without foreign body with damage to nail Contact with powered saw as cause of accidental injury Laceration of left index finger without foreign body with damage to nail Injury of nail bed of finger of left hand Hypertension Cryptogenic stroke Obesity Rectal bleed Hypothyroidism Lightheadedness Right bundle branch block Essential (primary) hypertension HLD (hyperlipidemia) CVA (ce (more content not included)... Normal [facility] NM CARDIAC PERF STRESS/PHARM on 08-19-2024 NM CARDIAC PERF STRESS/PHARM * * *Final Report* * * DATE OF EXAM: Aug 19 2024 10:04AM [facility] 0006 - [place] CARDIAC PERF STRESS/PHARM / PROCEDURE REASON: Chest pain, unspecified type * * * * Physician Interpretation * * * * Stress Climatology Professor Report: [facility] Date of service: 08/19/2024 8:31:00 AM Supervising physician: Sravan Mathew MD PATIENT: Name: MR. TREVOR COLEMAN Age: 74 years Gender: M The supervising physician was in the department and immediately available. * * * Final * * * -------- PATIENT: Name: MR. TREVOR COLEMAN Age: 74 years Gender: M CONCLUSIONS: 1. SPECT Perfusion Study: Normal. 2. There is no scintigraphic evidence for inducible ischemia. 3. No evidence of scarred myocardium. 4. Left ventricle is normal in size. The left ventricle systolic function is normal. 5. Right ventricle is normal in size. The right ventricle systolic function is normal. 6. This is a low risk scan. Gated Stress IR LVEF % 64 LVEF at rest not reported due to poor ECG gating in the setting of frequent PVCs. Prior Study Comparison No prior nuclear cardiology exam available for comparison. Nuclear Med Report:1-Day Gated SPECT Myocardial Perfusion with Regadenoson Stress: Myocardial perfusion imaging was performed at rest 30 minutes following the IV injection of the radiotracer. The patient received 0.4 mg of regadenoson, via rapid IV push, immediately followed by radiotracer IV. Gated post stress tomographic imaging was performed 30 to 60 minutes later. See administered radiotracer and doses below. Main [place] Date of service: 08/19/2024 8:31:00 AM Ordering Physician: FERNANDA WARREN. Requesting Physician: Indication: Arrhythmia, Assessment for known CAD, Dyspnea and Abnormal Baseline ECG Fellow: Anny Medina MD Interpreting physician: Sravan Mathew MD Height: 182.88 cm BSA: 2.24 m? Weight: 98.88 kg BMI: 29.6 kg/m? CT Dose Reduction Employed: No. Exam Type: Rest Stress Radiopharm: Tc-99m Tetrofosmin Tc-99m Tetrofosmin Dosage(mCi): 12.6 33 Atten Correction: not performed not performed Stress Agent: Regadenoson 0.4mg Supply provided from [facility] Resting Blood Press: 124/82 mmHg Image Quality The overall study imaging quality was deemed to be good. FINDINGS: Left Ventricle Wall Motion: Stress IR - All segments are normal. Rest IR - Gated Stress IR - Reversibility - Stress IR Stress IR Gated Stress IR LVEF: 64 % ED Volume: 147 ml ES Volume: 53 ml TID: 0.92 Perfusion Findings Stress IR - Summed Score=0 All segments demonstrate normal perfusion. Rest IR - Summed Score=0 All segments demonstrate normal perfusion. Stress IR Rest IR Summed Score=0 Summed Score=0 LEFT VENTRICLE The left ventricle is normal in size. Left ventricular systolic function is normal. Right Ventricle The right ventricle is normal in size. Right ventricle systolic function is normal. Stress Test Findings: There is no scintigraphic evidence for inducible ischemia. There is no evidence of scarring. The left ventricular cavity size is unchanged with stress. * * * Final * * * -------- Stress ECG Report: [place] [id number] Date of service: 08/19/2024 8:31:00 AM Ordering physician: FERNANDA WARREN biochemistry specialist: Ada Marmolejo MS, RCEP Electric Freight Car Operator: Tammie Marie Fellow: Anny Lo MD and Chichi Medina MD Interpreting physician: Sravan Mathew MD Patient name: MR. TREVOR COLEMAN Age: 74 years Gender: M Height: 182.88 cm BSA: 2.24 m? Weight: 98.88 kg BMI: 29.6 kg/m? Indication: Chest pressure / Chest tightness Stress ECG Conclusion: Conclusion: Normal with exception due to frequent ventricular ectopy Comments: Normal exam. Stress ECG Summary: The patient's resting heart rate was 58 bpm and blood pressure was 124/82 mmHg. The test was terminated due to end of protocol. No symptoms provoked during stress. The maximum heart rate was 70 bpm, which is 48% of the predicted heart rate for age. Peak blood pressure was 120/76 mmHg. The double product achieved was 8400. Medications: Last Used HYDROCHLOROTHIAZIDE 4 Hours PLAVIX 13 Hours LOSARTAN 4 Hours Resting ECG: Sinus Bradycardia, Bigeminal PVCs, Trigeminal PVCs and RBBB Symptoms at rest: No symptoms Pharamcologic Protocol: Regadenoson Stress Exercise Table: +-----+--+---+---+ Stage HR SYS SABA +-----+--+---+---+ 1 67 +-----+--+---+---+ 2 74 122 78 +-----+--+---+---+ 3 74 +-----+--+---+---+ 4 (more content not included)... Normal [facility] Heart Perfusion W stress and W radionuclide Gregory 08-19-2024 * * *Final Report* * * DATE OF EXAM: Aug 19 2024 10:04AM [facility] 0006 - [place] CARDIAC PERF STRESS/PHARM / PROCEDURE REASON: Chest pain, unspecified type * * * * Physician Interpretation * * * * Stress Climatology Professor Report: [facility] Date of service: 08/19/2024 8:31:00 AM Supervising physician: Sravan Mathew MD PATIENT: Name: MR. TREVOR COLEMAN Age: 74 years Gender: M The supervising physician was in the department and immediately available. * * * Final * * * -------- PATIENT: Name: MR. TREVOR COLEMAN Age: 74 years Gender: M CONCLUSIONS: 1. SPECT Perfusion Study: Normal. 2. There is no scintigraphic evidence for inducible ischemia. 3. No evidence of scarred myocardium. 4. Left ventricle is normal in size. The left ventricle systolic function is normal. 5. Right ventricle is normal in size. The right ventricle systolic function is normal. 6. This is a low risk scan. Gated Stress IR LVEF % 64 LVEF at rest not reported due to poor ECG gating in the setting of frequent PVCs. Prior Study Comparison No prior nuclear cardiology exam available for comparison. Nuclear Med Report:1-Day Gated SPECT Myocardial Perfusion with Regadenoson Stress: Myocardial perfusion imaging was performed at rest 30 minutes following the IV injection of the radiotracer. The patient received 0.4 mg of regadenoson, via rapid IV push, immediately followed by radiotracer IV. Gated post stress tomographic imaging was performed 30 to 60 minutes later. See administered radiotracer and doses below. Main [place] Date of service: 08/19/2024 8:31:00 AM Ordering Physician: FERNANDA WARREN. Requesting Physician: Indication: Arrhythmia, Assessment for known CAD, Dyspnea and Abnormal Baseline ECG Fellow: Anny Medina MD Interpreting physician: Sravan Mathew MD Height: 182.88 cm BSA: 2.24 m Weight: 98.88 kg BMI: 29.6 kg/m CT Dose Reduction Employed: No. Exam Type: Rest Stress Radiopharm: Tc-99m Tetrofosmin Tc-99m Tetrofosmin Dosage(mCi): 12.6 33 Atten Correction: not performed not performed Stress Agent: Regadenoson 0.4mg Supply provided from [facility] Resting Blood Press: 124/82 mmHg Image Quality The overall study imaging quality was deemed to be good. FINDINGS: Left Ventricle Wall Motion: Stress IR - All segments are normal. Rest IR - Gated Stress IR - Reversibility - Stress IR Stress IR Gated Stress IR LVEF: 64 % ED Volume: 147 ml ES Volume: 53 ml TID: 0.92 Perfusion Findings Stress IR - Summed Score=0 All segments demonstrate normal perfusion. Rest IR - Summed Score=0 All segments demonstrate normal perfusion. Stress IR Rest IR Summed Score=0 Summed Score=0 LEFT VENTRICLE The left ventricle is normal in size. Left ventricular systolic function is normal. Right Ventricle The right ventricle is normal in size. Right ventricle systolic function is normal. Stress Test Findings: There is no scintigraphic evidence for inducible ischemia. There is no evidence of scarring. The left ventricular cavity size is unchanged with stress. * * * Final * * * -------- Stress ECG Report: [place] [id number] Date of service: 08/19/2024 8:31:00 AM Ordering physician: FERNANDA WARREN biochemistry specialist: Ada Marmolejo MS, RCEP Electric Fre[employer] Car Operator: Tammie Marie Fellow: Anny Lo MD and Chichi Medina MD Interpreting physician: Sravan Mathew MD Patient name: MR. TREVOR COLEMAN Age: 74 years Gender: M Height: 182.88 cm BSA: 2.24 m Weight: 98.88 kg BMI: 29.6 kg/m Indication: Chest pressure / Chest tightness Stress ECG Conclusion: Conclusion: Normal with exception due to frequent ventricular ectopy Comments: Normal exam. Stress ECG Summary: The patient's resting heart rate was 58 bpm and blood pressure was 124/82 mmHg. The test was terminated due to end of protocol. No symptoms provoked during stress. The maximum heart rate was 70 bpm, which is 48% of the predicted heart rate for age. Peak blood pressure was 120/76 mmHg. The double product achieved was 8400. Medications: Last Use (more content not included)... DIVISION OF RADIOLOGY Provider, [facility] - 08/19/2024 * * *Final Report* * * DATE OF EXAM: Aug 19 2024 10:04AM N 0006 - NM CARDIAC PERF STRESS/PHARM / PROCEDURE REASON: Chest pain, unspecified type * * * * Physician Interpretation * * * * Stress Climatology Professor Report: [place] [id number] Date of service: 08/19/2024 8:31:00 AM Supervising physician: Sravan Mathew MD PATIENT: Name: MR. TREVOR COLEMAN Age: 74 years Gender: M The supervising physician was in the department and immediately available. * * * Final * * * -------- PATIENT: Name: MR. TREVOR COLEMAN Age: 74 years Gender: M CONCLUSIONS: 1. SPECT Perfusion Study: Normal. 2. There is no scintigraphic evidence for inducible ischemia. 3. No evidence of scarred myocardium. 4. Left ventricle is normal in size. The left ventricle systolic function is normal. 5. Right ventricle is normal in size. The right ventricle systolic function is normal. 6. This is a low risk scan. Gated Stress IR LVEF % 64 LVEF at rest not reported due to poor ECG gating in the setting of frequent PVCs. Prior Study Comparison No prior nuclear cardiology exam available for comparison. Nuclear Med Report:1-Day Gated SPECT Myocardial Perfusion with Regadenoson Stress: Myocardial perfusion imaging was performed at rest 30 minutes following the IV injection of the radiotracer. The patient received 0.4 mg of regadenoson, via rapid IV push, immediately followed by radiotracer IV. Gated post stress tomographic imaging was performed 30 to 60 minutes later. See administered radiotracer and doses below. Main [place] Date of service: 08/19/2024 8:31:00 AM Ordering Physician: FERNANDA WARREN. Requesting Physician: Indication: Arrhythmia, Assessment for known CAD, Dyspnea and Abnormal Baseline ECG Fellow: Anny Mednia MD Interpreting physician: Sravan Mathew MD Height: 182.88 cm BSA: 2.24 m Weight: 98.88 kg BMI: 29.6 kg/m CT Dose Reduction Employed: No. Exam Type: Rest Stress Radiopharm: Tc-99m Tetrofosmin Tc-99m Tetrofosmin Dosage(mCi): 12.6 33 Atten Correction: not performed not performed Stress Agent: Regadenoson 0.4mg Supply provided from [facility] Resting Blood Press: 124/82 mmHg Image Quality The overall study imaging quality was deemed to be good. FINDINGS: Left Ventricle Wall Motion: Stress IR - All segments are normal. Rest IR - Gated Stress IR - Reversibility - Stress IR Stress IR Gated Stress IR LVEF: 64 % ED Volume: 147 ml ES Volume: 53 ml TID: 0.92 Perfusion Findings Stress IR - Summed Score=0 All segments demonstrate normal perfusion. Rest IR - Summed Score=0 All segments demonstrate normal perfusion. Stress IR Rest IR Summed Score=0 Summed Score=0 LEFT VENTRICLE The left ventricle is normal in size. Left ventricular systolic function is normal. Right Ventricle The right ventricle is normal in size. Right ventricle systolic function is normal. Stress Test Findings: There is no scintigraphic evidence for inducible ischemia. There is no evidence of scarring. The left ventricular cavity size is unchanged with stress. * * * Final * * * -------- Stress ECG Report: [place] [id number] Date of service: 08/19/2024 8:31:00 AM Ordering physician: FERNANDA WARREN biochemistry specialist: Ada Marmolejo MS, RCEP Electric Freight Car Operator: Tammie Marie Fellow: Anny Lo MD and Chichi Medina MD Interpreting physician: Sravan Mathew MD Patient name: MR. TREVOR COLEMAN Age: 74 years Gender: M Height: 182.88 cm BSA: 2.24 m Weight: 98.88 kg BMI: 29.6 kg/m Indication: Chest pressure / Chest tightness Stress ECG Conclusion: Conclusion: Normal with exception due to frequent ventricular ectopy Comments: Normal exam. Stress ECG Summary: The patient's resting heart rate was 58 bpm and blood pressure was 124/82 mmHg. The test was terminated due to end of protocol. No symptoms provoked during stress. The maximum heart rate was 70 bpm, which is 48% of the predicted heart rate for age. Peak blood pressure was 120/76 mmHg. The double product achieved was 8400. Medications: Last Used HYDROCHLOROTHIAZIDE 4 Hours PLAVIX 13 Hours LOSARTAN 4 Hours Resting ECG: Sinus Bradycardia, Bigeminal PVCs, Trigeminal PVCs and RBBB Symptoms at rest: No symptoms Pharamcologic Protocol: Regadenoson Stress Exercise Table: +-----+-- (more content not included)... [facility] Radiology Study observation (narrative) [facility] [place] Heart Perfusion W stress and W radionuclide IVOrdered By: [facility] Provider on 08-19-2024 [facility] Cardiology Visit Reporton Cardiology Visit Report [facility] [address] [place], [place] [address] OFFICE VISIT Date of Service: 08/04/24 MR#: [id number] Acct: [id number] Name: TREVOR COLEAMN Rep #: [id number] 1 : 1950 Provider: DIMITRI fong Age/Sex: 74/M [place] [facility] [place] Status: Signed HPI HPI History of Present Illness Details: Trevor Coleman is a 74-year-old male who presents to the office today for 1 year follow-up for monitoring of cardiovascular disease. Patient has a history of cryptogenic stroke, hypertension, bradycardia. Patient had loop recorder placed shortly after experiencing stroke and resulted in no arrhythmias. Patient also had echocardiogram around time of stroke with normal LVEF and stage I diastolic dysfunction. Patient return to office in 2022 with concerns of dizziness and bradycardia noted on smart watch. Patient underwent 30-day event monitor which did not demonstrate any significant abnormality and an average heart rate of 74.2 bpm. Patient has a known right bundle branch block seen on EKG in the past. He was seen with his neurologist and noted to have an irregular heart rhythm. He was evaluated in the emergency department for such on 07/13/2024. Twelve- lead ECG shows sinus rhythm with occasional PVCs. Laboratory testing was unremarkable. No changes were made and is recommended follow-up with cardiology on outpatient basis. 24-hour Holter monitor on 07/23/2024 showed average heart rate 62 bpm and ventricular ectopy burden of 20%. Echocardiogram on 07/27/2024 showed mild septal LVH, EF 57???5% and frequent ectopy. He denies chest, arm, jaw, or neck discomfort. He denies palpitations. He denies bilateral lower extremity edema. He denies claudication. He states shortness of breath with activity. Shortness of breath at rest, orthopnea, or PND. He denies chronic cough. He denies significant, sudden weight gain. He continues with intermittent lightheadedness. He denies dizziness, near-syncope, or syncope. He denies blood in urine, blood in stool, or epistaxis. He denies fever with chills. He denies myalgia. He notes an increase in fatigue. His exercise level has remained stable. He is currently following with primary care provider regarding GERD symptoms and lower abdominal discomfort. Intake Vital Signs 07/16/24 13:54 08/04/24 08:09 Height 6 ft 6 ft Weight: 217 lb 218 lb BMI 29.4 29.5 BP 136/82 H 128/70 H Blood Pressure Location Lt brachial Lt brachial Position Sitting Sitting Respiration 16 16 Pulse 59 L 61 Pulse Source NIBP NIBP Intake Visit Reasons: review test Quotation Clerk Required: No Is patient in pain?: No Allergies adhesive tape Allergy (Mild, Verified 08/04/24 08:10) Unknown methimazole (From Tapazole) Allergy (Mild, Verified 08/04/24 08:10) Unknown Sulfa (Sulfonamide Antibiotics) Allergy (Verified 08/04/24 08:10) PT CAN'T REMEMBER Medications ???Medication ???Instructions ???Recorded ???Confirmed ???Type clopidogrel 75 mg tablet 75 mg PO DAILY #30 tabs 10/28/17 0 08/04/24 Rx cholecalciferol (vitamin D3) 50 2,000 unit PO DAILY 11/27/1708/04 History mcg (2,000 unit) capsule multivitamin 1 tab PO DAILY 11/27/17 08/04/24 H istory atorvastatin 40 mg tablet 40 mg PO QHS 05/25/19 08/04/24 His tory magnesium oxide 500 mg capsule 500 mg PO DAILY 05/25/19 08/04/24 History hydrochlorothiazide 12.5 mg tablet 12.5 mg PO BID 12/21/21 08/04/24 History lactobacillus combination no.9 4 4,000 mmu cells PO DAILY 12/21/21 08/04/24 History billion cell capsule (Adult 50 Plus Probiotic) levothyroxine 137 mcg tablet 137 mcg PO DAILY 12/21/21 08/04/24 History losartan 50 mg tablet 50 mg PO DAILY 30 days #30 tabs 08/04/24 History hydrocortisone 2.5 % topical cream 1 applic topical BID PRN 5 08/04/24 History loratadine 10 mg tablet 10 mg PO QDAY PRN 07/16/24 5 History saw palmetto 450 mg capsule 450 mg PO QDAY 07/16/24 08/04/24 H istory Ejection fraction %: 60 Have you fallen in the past year?: No PFSH Medical History Left shoulder pain Wears glasses Arthritis High cholesterol Back pain TIA (transient ischemic attack) Stroke/cerebrovascula r accident Syncope Non-smoker Leg cramps History of echocardiogram Cardiology follow-up encounter Orthostatic hypotension Hemorrhoids Open fracture of distal phalanx of left middle finger Open fracture of distal phalanx of left index finger Laceration of left middle finger without foreign body with damage to nail Contact with powered saw as cause of accidental injury Laceration of left index finger without foreign body with damage to nail Injury of nail bed of finger of left hand Hypertension Cryptogenic stroke Obesity Rectal bleed Hypoth (more content not included)... Normal [facility] Calculated very low density lipoprotein (VLDL) cholesterol measurementOrdered By: Liseth Del Valle on 07-29-2024 Calculated very low density lipoprotein (VLDL) cholesterol measurement 16 mg/dL 5-40 [facility] Free T3on 07-29-2024 Free T3 [Mass/Vol] 2.4 pg/mL Normal 2.18-3.98 [facility] Comment on above: Performed By: #### L 501.9985, L506.0400, L500.4100, L501.12724, L501.9910 #### [facility] [address] [place], [place], [id number] Free [id number] By: Liseth nicholas on 07-29-2024 Free T3 [Mass/Vol] 2.4 pg/mL 2.18-3.98 [facility] Hemoglobin A1con 07-29-2024 HbA1c (Bld) [Mass fraction] 6.1 % High <=5.6 [facility] Comment on above: Result Comment: Norm al < 5.7 % Prediabetic 5.7 - 6.4 % Diabetic >or= 6.5 % Please note range changes. Performed By: #### L 501.9985, L506.0400, L500.4100, L501.94946, L501.9910 #### [facility] [address] [place], [address] Hemoglobin A1c percentageOrd ered By: Liseth Del Valle on 07-29-2024 HbA1c (Bld) [Mass fraction] 6.1 % High <5.7 [facility] Comment on above: Normal < 5.7 % Predi abetic 5.7 - 6.4 % Diabetic >or= 6.5 % Please note range changes. LDL calc ser/plasOrdered By: Liseth Del Valle on 07-29-2024 Cholesterol in LDL [Mass/Vol] 55 mg/dL [facility] Comment on above: Hobyrvigul=696-855 m g/dL & Higher Sgsl=332 mg/dL or greater Lipid Profileon 07-29-2024 CHOL:HDL 2.60 Normal [facility] Comment on above: Performed By: #### L 501.9985, L506.0400, L500.4100, L501.43947, L501.9910 #### [facility] [address] [place], [address] Cholesterol [Mass/Vol] 116 mg/dL Normal <=200 [facility] Comment on above: Result Comment: Chol esterol level, Desirable <200 mg/dL Borderline high cholesterol 200-239 mg/dL High cholesterol >=240 mg/dL Recommendations of the NCEP Adult Treatment Panel for the following risk-cutoff thresholds for the [place] population. Performed By: #### L 501.9985, L506.0400, L500.4100, L501.50069, L501.9910 #### [facility] [address] [place], [address] Cholesterol in HDL [Mass/Vol] 45 mg/dL Normal [facility] Comment on above: Result Comment: Christen onal Cholesterol Education Program (NCEP) guidelines: <40 mg/dL: Low HDL-cholesterol (major risk factor for CHD) >= 60 mg/dL: High HDL-cholesterol (negative risk factor for CHD) HDL-cholesterol is affected by a number of factors, e.g. smoking, exercise, hormones, sex and age. Performed By: #### L 501.9985, L506.0400, L500.4100, L501.59627, L501.9910 #### [facility] [address] [place], [address] Cholesterol in LDL [Mass/Vol] 55 mg/dL Normal [facility] Comment on above: Result Comment: Bord syjdkc=181-677 mg/dL Higher Zlab=960 mg/dL or greater Performed By: #### L 501.9985, L506.0400, L500.4100, L501.58827, L501.9910 #### [facility] [address] [place], [address] Cholesterol in VLDL [Mass/Vol] 16 mg/dL Normal 5-40 [facility] Comment on above: Performed By: #### L 501.9985, L506.0400, L500.4100, L501.41540, L501.9910 #### [facility] [address] [place], [address] Triglyceride [Mass/Vol] 81 mg/dL Normal [facility] Comment on above: Result Comment: The drugs N-Acetylcysteine and Metamizole may falsely depress this assay. Normal range: <150 mg/dL Borderline High: 150-199 mg/dL High: 200-499 mg/dL Very High: >500 mg/dL Performed By: #### L 501.9985, L506.0400, L500.4100, L501.39261, L501.9910 #### [facility] [address] [place], [place], [address] PSA,Total - Annual Screenon 07-29-2024 PSA,TOT SCREEN 3.98 ng/mL Normal 0.02-4.00 [facility] Comment on above: Result Comment: This test was performed using the [employer] tPSA method. Measured values of a patient??sample can vary depending on the testing procedure used. PSA values determined on patient samples by different testing procedures cannot be used interchangeably. If there is a change in PSA assays while monitoring therapy, sequential testing should be performed to confirm baseline values. Performed By: #### L 501.9985, L506.0400, L500.4100, L501.20097, L501.9910 #### [facility] [address] [place], [place], [address] Screening total cholesterol/ high density lipoprotein (HDL) cholesterol ratioOrdered By: Liseth Del Valle on 07-29-2024 Cholesterol.total/Choles terol in HDL [Mass ratio] 2.60 {ratio} [facility] Serum or plasma cholesterol in HDL measurement (mass/volume)Ordered By: Liseth Del Valle on 07-29-2024 Cholesterol in HDL [Mass/Vol] 45 mg/dL >40 [facility] Comment on above: National Cholesterol Education Program (NCEP) guidelines:<40 mg/dL: Low HDL-cholesterol (major risk factor for CHD)>= 60 mg/dL: High HDL-cholesterol (negative risk factor for CHD)HDL-cholesterol is affected by a number of factors, e.g. smoking, exercise, hormones, sex and age. Serum or plasma cholesterol measurement (mass/volume)Ordered By: Liseth Del Valle on 07-29-2024 Cholesterol [Mass/Vol] 116 mg/dL <201 [facility] Comment on above: Cholesterol level, D esirable <200 mg/dLBorderline high cholesterol 200-239 mg/dLHigh cholesterol >=240 mg/dLRecommendations of the NCEP Adult Treatment Panel for the following risk-cutoff thresholds for the [place] population. T4 Free Directon 07-29-2024 T4 FREE DIRECT 1.80 ng/dL High 0.76-1.46 [facility] Comment on above: Performed By: #### L 501.9985, L506.0400, L500.4100, L501.86431, L501.9910 #### [facility] [address] [place], [address] T4 freeOrdered By: Liseth nicholas on 07-29-2024 Free T4 [Mass/Vol] 1.80 ng/dL High 0.76-1.46 [facility] Triglycerides measurementOrd ered By: Liseth Del Valle on 07-29-2024 Triglyceride [Mass/Vol] 81 mg/dL <199 [facility] Comment on above: The drugs N-Acetylcy steine and Metamizole may falsely depress this assay. Normal range: <150 mg/dLBorderline High: 150-199 mg/dLHigh: 200-499 mg/dLVery High: >500 mg/dL ECHOon 07-27-2024 Echocardiography Echocardiography Report: Transthoracic Echo [facility] Date of service: 07/27/2024 8:37:29 AM STRAIGHTENER Ordering physician: OTFI TRANSCRIBE PROVIDER Exam indication: Abnormal ECG Technologist: Jelena Haskins Interpreting physician: Luiz Lozano MD PATIENT: Name: MR. TREVOR COLEMAN : 1950 Age: 74 years Gender: M Primary rhythm: sinus. Secondary rhythm: PVC. Height: 182.90 cm BSA: 2.24 m Weight: 99.07 kg BMI: 29.6 kg/m Heart rate 71 bpm Color Doppler was utilized to interrogate the cardiac valves assessed and spectral Doppler was utilized to determine the flow velocities and pressure gradients reported in this exam. MEASUREMENTS: Value Indexed Normal Max aortic dimension 4.2 cm Ao < 3.8 Left atrial volume 59 ml (Coello's) 27 ml/m Jose <= 34 LV ID (diastole) 5.3 cm (2D) 2.36 cm/m LV ID (systole) 3.8 cm (2D) 1.69 cm/m IVS, leaflet tips 1.4 cm (2D) Posterior wall thickness 0.8 cm (2D) Left ventricular mass 228 g (2D) 102 g/m LV stroke volume 61 ml (2D biplane) LV end diastolic volume 108 ml (2D biplane) 48.2 ml/m 34<=EDVi<75 LV end systolic volume 47 ml (2D biplane) 20.9 ml/m Ejection Fraction 57 % (2D biplane) EF > 52 FINDINGS: LEFT VENTRICLE The left ventricle is normal in size. There is mild septal left ventricular hypertrophy. Left ventricular systolic function is normal. Left ventricular diastolic function was not evaluated due to inconsistent or technically suboptimal data and frequent ectopy. Wall Motion: All scored segments are normal. RIGHT VENTRICLE The right ventricle is normal in size. Right ventricular systolic function is normal. RV systolic tissue Doppler velocity is 10.8 cm/s. Tricuspid annular displacement is 1.8 cm. Estimated right ventricular systolic pressure is 26 mmHg consistent with normal pulmonary artery pressures. Estimated right atrial pressure is 3 mmHg based on IVC assessment. LEFT ATRIUM The left atrial cavity is normal in size. RIGHT ATRIUM The right atrial cavity is normal in size. Inferior Vena Cava: The inferior vena cava appears normal measuring 1.4 cm. The vessel decreases greater than 50 percent with inspiration. MITRAL VALVE There is trace (trace - 1+) mitral valve regurgitation. There is mild thickening. The pressure half time is 44 msec. The peak mitral E/A ratio is 0.59. The mitral flow deceleration time is 150 msec. TRICUSPID VALVE There is mild (1+) tricuspid valve regurgitation. There is no thickening. AORTIC VALVE There is trace aortic valve regurgitation. Tricuspid aortic valve. There is mild thickening. The peak gradient is 8 mmHg (peak velocity = 138.0 cm/s). PULMONIC VALVE There is trace pulmonic valve regurgitation. There is no thickening. AORTA The visualized aorta is dilated. Measurements - Aortic valve annulus 2.1 cm. Sinus: 4.2 cm. Mid ascending aorta 4.2 cm. PULMONARY ARTERIES The pulmonary arteries are unseen or not interrogated. INTERATRIAL SEPTUM There is no evidence of intracardiac shunting as detected by Doppler. PERICARDIUM There is no pericardial effusion. There is an epicardial fat pad. CONCLUSIONS: - Exam indication: Abnormal ECG - The left ventricle is normal in size. There is mild septal left ventricular hypertrophy. Left ventricular systolic function is normal. EF = 57 5% (2D biplane) Left ventricular diastolic function was not evaluated due to inconsistent or technically suboptimal data and frequent ectopy. - The right ventricle is normal in size. Right ventricular systolic function is normal. - The visualized aorta is dilated with a maximal dimension of 4.2 cm. - Frequent ectopy during exam. - The patient has not had a prior CC echocardiographic exam for comparison. * * * Final * * * [facility] [employer] [facility] : [id number] amicsSISUID Normal [facility] Cardiology Visit Reporton Cardiology Visit Report [facility] [address] [place] [address] OFFICE VISIT Date of Service: 07/16/24 MR#: [id number] Acct: [id number] Name: TREVOR COLEMAN Rep #: [id number] : 1950 Provider: DIMITRI fong Age/Sex: 74/M [place] [facility] [place] Status: Signed HPI HPI History of Present Illness Details: Trevor Coleman is a 74-year-old male who presents to the office today for 1 year follow-up for monitoring of cardiovascular disease. Patient has a history of cryptogenic stroke, hypertension, bradycardia. Patient had loop recorder placed shortly after experiencing stroke and resulted in no arrhythmias. Patient also had echocardiogram around time of stroke with normal LVEF and stage I diastolic dysfunction. Patient return to office in 2022 with concerns of dizziness and bradycardia noted on smart watch. Patient underwent 30-day event monitor which did not demonstrate any significant abnormality and an average heart rate of 74.2 bpm. Patient has a known right bundle branch block seen on EKG in the past. He was seen with his neurologist and noted to have an irregular heart rhythm. He was evaluated in the emergency department for such on 07/13/2024. Twelve- lead ECG shows sinus rhythm with occasional PVCs. Laboratory testing was unremarkable. No changes were made and is recommended follow-up with cardiology on outpatient basis. He denies chest, arm, jaw, or neck discomfort. He denies palpitations. He denies bilateral lower extremity edema. He denies claudication. He denies shortness of breath with activity, shortness of breath at rest, orthopnea, or PND. He denies chronic cough. He denies significant, sudden weight gain. He continues with intermittent lightheadedness. He denies dizziness, near-syncope, or syncope. He denies blood in urine, blood in stool, or epistaxis. He denies fever with chills. He denies myalgia. He denies fatigue. His exercise level has remained stable. 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: No Is patient in pain?: No Allergies adhesive tape Allergy (Mild, Verified 07/16/24 13:59) Unknown methimazole (From Tapazole) Allergy (Mild, Verified 07/16/24 13:59) Unknown Sulfa (Sulfonamide Antibiotics) Allergy (Verified 07/16/24 13:59) PT CAN'T REMEMBER Medications ???Medication ???Instructions ???Recorded ???Confirmed ???Type clopidogrel 75 mg tablet 75 mg PO DAILY #30 tabs 10/28/17 0 07/16/24 Rx cholecalciferol (vitamin D3) 50 2,000 unit PO DAILY 11/27/1707/16 History mcg (2,000 unit) capsule multivitamin 1 tab PO DAILY 11/27/17 07/16/24 H istory atorvastatin 40 mg tablet 40 mg PO QHS 05/25/19 07/16/24 His tory magnesium oxide 500 mg capsule 500 mg PO DAILY 05/25/19 07/16/24 History hydrochlorothiazide 12.5 mg tablet 12.5 mg PO BID 12/21/21 07/16/24 History lactobacillus combination no.9 4 4,000 mmu cells PO DAILY 12/21/21 07/16/24 History billion cell capsule (Adult 50 Plus Probiotic) levothyroxine 137 mcg tablet 137 mcg PO DAILY 12/21/21 07/16/24 History losartan 50 mg tablet 50 mg PO DAILY 30 days #30 tabs 07/16/24 History hydrocortisone 2.5 % topical cream 1 applic topical BID PRN 5 07/16/24 History loratadine 10 mg tablet 10 mg PO QDAY PRN 07/16/24 5 History saw palmetto 450 mg capsule 450 mg PO QDAY 07/16/24 07/16/24 H istory Ejection fraction %: 60 Have you fallen in the past year?: No PFSH Medical History Left shoulder pain Wears glasses Arthritis High cholesterol Back pain TIA (transient ischemic attack) Stroke/cerebrovascula r accident Syncope Non-smoker Leg cramps History of echocardiogram Cardiology follow-up encounter Orthostatic hypotension Hemorrhoids Open fracture of distal phalanx of left middle finger Open fracture of distal phalanx of left index finger Laceration of left middle finger without foreign body with damage to nail Contact with powered saw as cause of accidental injury Laceration of left index finger without foreign body with damage to nail Injury of nail bed of finger of left hand Hypertension Cryptogenic stroke Obesity Rectal bleed Hypothyroidism Lightheadedness Right bundle branch block Essential (primary) hypertension HLD (hyperlipidemia) CVA (cerebral vascular accident) (10/2017) Surgical History Hx of colonoscopy Hx of eye surgery History of loop recorder (12/13/17) History of carpal tunnel release Hx of LASIK H/O knee surgery (more content not included)... Normal [facility] 12 Lead EKGon 07-13-2024 12 Lead EKG [facility] [address] [place] [address] 12 Lead EKG 07/13/241926 MR#: [id number] Acct: [id number] Name: TREVOR COLEMAN Rep #: [id number] : 1950 74 From: George Thomas MD Attending Dr: Status: DEP ER Ordering Dr: Shaheen Prajapati DO Date: 5 Location: ED Sex: M C Admitted: Test Reason : DIZZY Blood Pressure : */* mmHG Vent. Rate : 77 BPM Atrial Rate : 77 BPM P-R Int : 180 ms QRS Dur : 158 ms QT Int : 410 ms P-R-T Axes : 35 -22 12 degrees QTcB Int : 463 ms Sinus rhythm with frequent Premature ventricular complexes Right bundle branch block Abnormal ECG Confirmed by George Thomas ([id number]), editor house organ MIGUEL SQUIRES ([id number]) on 07/14/2024 10:02:18 AM Referred By: Confirmed By: George Thomas 07/14/241001 Date George Thomas MD CC: Dr. Shaheen Prajapati DO; Dr. Liseth Del Valle DO Signed Normal [facility] Anion gap in Serum or Plasma Ordered By: Shaheen Prajapati on 07-13-2024 Anion gap [Moles/Vol] 11 mmol/L - [facility] BUN/creatinine ratioOrdered By: Shaheen Prajapati on 07-13-2024 Urea nitrogen/Creatinine [Mass ratio] 19.3 mg/mg - [facility] Basic Metabolic Profile (BMP )on 07-13-2024 BUN/CRE 19.3 RATIO Normal - [facility] Comment on above: Performed By: #### L 300.8000, L503.7505 #### [facility] [address] [place], [address] Calcium [Mass/Vol] 9.1 mg/dL Normal 7.6-11.0 [facility] Comment on above: Performed By: #### L 300.8000, L503.7505 #### [facility] [address] [place], [address] Chloride [Moles/Vol] 102 mmol/L Normal 98-108 [facility] Comment on above: Performed By: #### L 300.8000, L503.7505 #### [facility] [address] [place], [address] CO2 [Moles/Vol] 23.6 mmol/L Normal 21.0-32.0 [facility] Comment on above: Performed By: #### L 300.8000, L503.7505 #### [facility] [address] [place], [address] Creatinine [Mass/Vol] 1.09 mg/dL Normal 0.70-1.20 [facility] Comment on above: Performed By: #### L 300.8000, L503.7505 #### [facility] [address] [place], [address] ECRCL 72.72 ml/min Normal 50-250 [facility] Comment on above: Performed By: #### L 300.8000, L503.7505 #### [facility] [address] [place], [address] GAP 11 Normal 5-15 [facility] Comment on above: Performed By: #### L 300.8000, L503.7505 #### [facility] [address] [place], [address] GFR/1.73 sq M.predicted among non-blacks MDRD (S/P/Bld) [Vol rate/Area] 71 mL/min/{1.73_m2} Normal >60 [facility] Comment on above: Result Comment: mL/m in/1.73m2 CKD-EPI Creatinine Equation (2020) Performed By: #### L 300.8000, L503.7505 #### [facility] [address] [place], [address] Glucose [Mass/Vol] 117 mg/dL High 70-99 [facility] Comment on above: Performed By: #### L 300.8000, L503.7505 #### [facility] [address] [place], [address] Potassium [Moles/Vol] 3.8 mmol/L Normal 3.3-5.1 [facility] Comment on above: Performed By: #### L 300.8000, L503.7505 #### [facility] [address] [place], [address] Sodium [Moles/Vol] 137 mmol/L Normal 133-145 [facility] Comment on above: Performed By: #### L 300.8000, L503.7505 #### [facility] [address] [place], [address] Urea nitrogen [Mass/Vol] 21 mg/dL High 4-19 [facility] Comment on above: Performed By: #### L 300.8000, L503.7505 #### [facility] [address] [place], [address] CBC-Complete Blood Cnt No Di ffon 07-13-2024 Erythrocyte distribution width (RBC) [Ratio] 11.9 % Normal 11.6-14.6 [facility] Comment on above: Performed By: #### L 300.8000, L503.7505 #### [facility] [address] [place], [address] Hematocrit (Bld) [Volume fraction] 41.2 % Normal 40-54 [facility] Comment on above: Performed By: #### L 300.8000, L503.7505 #### [facility] [address] [place], [address] Hemoglobin (Bld) [Mass/Vol] 14.2 g/dL Normal 13.0-16.5 [facility] Comment on above: Performed By: #### L 300.8000, L503.7505 #### [facility] [address] [place], [address] MCH (RBC) [Entitic mass] 32.6 pg High 27.0-32.0 [facility] Comment on above: Performed By: #### L 300.8000, L503.7505 #### [facility] [address] [place], [address] MCHC (RBC) [Mass/Vol] 34.5 g/dL Normal 32-36 [facility] Comment on above: Performed By: #### L 300.8000, L503.7505 #### [facility] [address] [place], [address] MCV (RBC) [Entitic vol] 94.7 fL High 80-94 [facility] Comment on above: Performed By: #### L 300.8000, L503.7505 #### [facility] [address] [place], [address] Platelet mean volume (Bld) [Entitic vol] 11.0 fL Normal 6.2-12.0 [facility] Comment on above: Performed By: #### L 300.8000, L503.7505 #### [facility] [address] [place], [address] Platelets (Bld) [#/Vol] 152 10*3/uL Normal 150-450 [facility] Comment on above: Performed By: #### L 300.8000, L503.7505 #### [facility] [address] [place], [address] RBC (Bld) [#/Vol] 4.35 10*6/uL Low 4.6-6.2 [facility] Comment on above: Performed By: #### L 300.8000, L503.7505 #### [facility] [address] [place], [address] RDW SD 41.2 fl Normal 35.1-43.9 [facility] Comment on above: Performed By: #### L 300.8000, L503.7505 #### [facility] [address] [place], [address] WBC (Bld) [#/Vol] 7.6 10*3/uL Normal 4.4-11.0 [facility] Comment on above: Performed By: #### L 300.8000, L503.7505 #### [facility] [address] [place], [address] CNOVon 07-13-2024 CNOV Office Visit (OUSMANE ) TREVOR COLEMAN ([id number]) 1950 M Date Time Provider Department 07/13/24 3:20 PM HANSEL RAMSEY JR During your visit today, we recorded the following information about you: Pulse Respiration Blood pressure Weight 64/minute 18/minute 136/78 99.1 kg Hansel Ramsey Jr., MD 07/13/2024 5:43 PM Signed 07/09/2024 PROMIS [facility] Physical Health Summary Physical health: Good Everyday physical activity, ability: Completely Fatigue: Mild Pain level: 1 General health: Good Social activities/roles, ability: Very good Physical Health T-Score 50.8 (Very Good) Physical Health Percentile 53 [facility] Mental Health Summary Quality of life: Good Mental health (mood,thinking): Very good Social satisfaction: Very good Emotional problems (anxious,depressed): Rarely Mental Health T-Score 50.8 (Very Good) Mental Health Percentile 53 Percentiles provide an indication of how a patient's score ranks in relation to the [place] general population. > 31st percentile is within normal limits or better *< 31st percentile is at least ? SD worse than population, which may be clinically relevant < 16th percentile is at least 1 SD worse than population and warrants attention 07/09/2024 Sleep Apnea Probability Snores loudly: No Tired, fatigued or sleepy in daytime: No Stops breathing or choking/gasping during sleep: No High blood pressure: Yes Sleep Apnea Probability Score: 61 (Recommend sleep study) Hansel Ramsey Jr., MD 07/13/2024 5:43 PM Signed ESTABLISHED PATIENT VISIT CHIEF COMPLAINT: Follow Up HISTORY OF PRESENT ILLNESS: Trevor Coleman is a 74 year old male, BMI 29.62 kg/m2 with a PMH significant for and per last office visit note of 07/12/23: 1. Lightheaded - ICD9: 780.4, ICD10: R42 (primary diagnosis) 2. Vertigo - ICD9: 780.4, ICD10: R42 Chronic history of lightheadedness and dizziness for which etiology has yet to be determined despite extensive workup. Possibly multifactorial including known history of orthostatic hypotension, prior episodes of bradycardia (follows with cards), possibly due to chronic ocular disorder and possibly BPPV. No additional workup at this time. Continue to monitor. Explained to pt that when episode occurs, difficult to discern whether stroke or other and thus, would recommend ER evaluation if not quickly resolving. Patient also educated on other s/s of stroke for which he should seek immediately medical attention. 3. Obstructive sleep apnea syndrome - ICD9: 327.23, ICD10: G47.33 Asx with patient using positional therapy. No significant weight changes. Pt educated on ASYA s/s and will contact us if present for repeat sleep testing. 4. History of stroke - ICD9: V12.54, ICD10: Z86.73 No new focal neuro deficits per history and stable neuro exam. No changes in meds above including Plavix, statin, BP goal >140/90 and glucose goal <140. States that over past 2 weeks, his BP cuff is reporting an irregular heart rhythm. No cardiac symptoms endorsed by patient including no CP, palpitations, sob. Lightheadedness and dizziness chronic but unchanged. As noted in past, known [place] and episodes of bradycardia. Not vertigo with pt specifically stating it's lightheadedness. Sleep apnea doing well. Still sleeping on side. No ASYA symptoms. No weight gain. Going for EGD next week. Reports has to be off Plavix 7 days. Patient advised of risks of stopping Plavix given history of stroke, including new stroke. No new stroke like symptoms. REVIEW OF SYSTEMS GENERAL:No weight loss, malaise [...] - EXCEPT that as per HPI above. LAB/IMAGING: Those performed since patient's last visit [...] 6.3 Albumin (g/dL) Date Value 09/19/2016 3.9 (more content not included)... Normal [facility] Carbon dioxide, total [Moles /volume] in Central venous bloodOrdered By: Shaheen Prajapati on 07-13-2024 CO2 [Moles/Vol] 23.6 mmol/L 21.0-32.0 [facility] Chest PA and Lateralon 07-13 Chest PA and Lateral [facility] Imaging Services [address] [place], [place] [address] Chest PA and Lateral MR#: [id number] Acct: [id number] Name: TREVOR COLEMAN Rep #: [id number] : 1950 M 74 From: Anderson Buckner MD PCP: Dr. Liseth Del Valle, Status: REG ER Study: Chest PA and Lateral Date of Exam: 07/13/24 Exam# [id number] Ordering Dr: Shaheen Prajapati DO PROCEDURE: CHEST PA AND LATERAL 07/13/2024 REASON FOR EXAM: IRREGULAR HEARTBEAT TECHNIQUE: Frontal and lateral views of the chest. COMPARISON: Chest radiograph 11/29/2020 FINDINGS: Hardware: Leadless cardiac device projects over the heart. Heart: The heart size is normal. Mediastinum: The mediastinal contour is stable. Lungs: The lungs are clear. No pleural effusion. Bones: Degenerative changes are identified within the shoulders and thoracic spine. RAD/Chest PA and Lateral IMPRESSION: No acute cardiopulmonary abnormality. Reading Location: [facility] CC: Dr. Shaheen Prajapati DO; Dr. Liseth Del Valle DO Skein Straightener: Signed Normal [facility] Chloride assayOrdered By: Fahad Prajapati on 07-13-2024 Chloride [Moles/Vol] 102 mmol/L 98-108 [facility] D-Dimer Quantitative (DVT/PE )on 07-13-2024 D-DIMER QUANT < 0.27 Low 0.27-0.49 [facility] Comment on above: Result Comment: NORM AL D-Dimer level (<0.50) indicates no DVT or PE. Performed By: #### L 300.8000, L503.7505 #### [facility] [address] [place], [address] [id number] 07-13-2024 ECG01 Ventricular Rate : 6 2 BPM Atrial Rate : 62 BPM P-R Interval : 188 ms QRS Duration : 158 ms Q-T Interval : 460 ms QTC Calculation(Bazett) : 466 ms Calculated P Wisner : 16 degrees Calculated R Wisner : -15 degrees Calculated T Wisner : 12 degrees SINUS RHYTHM WITH OCCASIONAL PREMATURE VENTRICULAR COMPLEXES COMPLETE RIGHT BUNDLE BRANCH BLOCK ABNORMAL ECG Confirmed by MD DUBOSE QARAB ([id number]) on 07/14/2024 2:22:54 PM NAME : TREVOR COLEMAN PID : [id number] : 1950 Gender : Male Race : ORD : Procedure Date : Jul 13 2024 15:53:52 Edit Date : Jul 14 2024 14:22:57 Diagnosis: SINUS RHYTHM WITH OCCASIONAL PREMATURE VENTRICULAR COMPLEXES COMPLETE RIGHT BUNDLE BRANCH BLOCK ABNORMAL ECG Confirmed by MD DUBOSE QARAB ([id number]) on 07/14/2024 2:22:54 PM Test Reason : Location : 136 : [facility] Overread By : MD DUBOSE QARAB Edited By : MD DUBOSE QARAB Referred By : Hansel Ramsey Acquired by : travis love Normal [facility] Emergency Department Summary on 07-13-2024 Emergency Department Summary [facility] Medical Records Department [address] [place] [address] Emergency Department Summary 07/13/24 MR#: [id number] Acct: [id number] Name: TREVOR COLEMAN Rep #: [id number] : 1950 74 From: Shaheen Prajapati DO PCP: Dr. Liseth Del Valle DO Status:DEP ER Location: ED HPI History of Present Illness Chief Complaint: Dizziness Narrative Narrative: Chief complaint and HPI: Irregular heartbeat. 74-year-old male with past medical history of CVA, HTN, HLD who follows with neurology and cardiology presents for evaluation of irregular heartbeat. Patient states he was following up with his neurologist when he told him that he noticed irregular heartbeats on his monitor at home. Neurologist felt his heart rate and felt as if he was skipping a beat and was worried about irregular heartbeat so sent him to the emergency department. Patient states he has been having intermittent lightheadedness but this is not abnormal for him with his CVAs. Denies any fever, chills, shortness of breath, chest pain, palpitations, abdominal pain, nausea, vomiting. States he has been eating and drinking well. Review of systems: See HPI Medications: As listed on the chart Allergies: As listed on the chart PFSH: Per chart Vital signs: As listed on the chart. Reviewed. Physical exam: Gen: A O x3, NAD Head: Normocephalic, atraumatic Eyes: No sclera icterus, conjunctiva clear ENT: Moist mucous membranes Neck: Trachea midline, No JVD CV: RRR but intermittent pause in pulse when throws PVC on monitor, no murmurs, no peripheral edema Resp: Lungs CTA BL, no w/r/c GI: Abd soft, non-distended, non-tender, no r/r/g Musc: Full ROM, no deformity Skin: Warm, dry Neuro: Alert, oriented, grossly intact, sensation intact Psych: Cooperative, appropriate mood and affect [facility] Medical History Left shoulder pain Wears glasses Arthritis High cholesterol Back pain TIA (transient ischemic attack) Stroke/cerebrovascula r accident Syncope Non-smoker Leg cramps History of echocardiogram Cardiology follow-up encounter Orthostatic hypotension Hemorrhoids Open fracture of distal phalanx of left middle finger Open fracture of distal phalanx of left index finger Laceration of left middle finger without foreign body with damage to nail Contact with powered saw as cause of accidental injury Laceration of left index finger without foreign body with damage to nail Injury of nail bed of finger of left hand Hypertension Cryptogenic stroke Obesity Rectal bleed Hypothyroidism Lightheadedness Right bundle branch block Essential (primary) hypertension HLD (hyperlipidemia) CVA (cerebral vascular accident) (10/2017) Home Medications ???Medication ???Instructions ???Recorded ???Last Taken ???Type clopidogrel 75 mg tablet 75 mg PO DAILY #30 tabs 10/28/17 0 02/13/22 Rx cholecalciferol (vitamin D3) 50 2,000 unit PO DAILY 11/27/1710/21 History mcg (2,000 unit) capsule multivitamin 1 tab PO DAILY 11/27/17 10/21/18 H istory atorvastatin 40 mg tablet 40 mg PO QHS 05/25/19 Unknown Hist ory magnesium oxide 500 mg capsule 500 mg PO DAILY 05/25/19 Unknown H istory hydrochlorothiazide 12.5 mg tablet 12.5 mg PO BID 12/21/21 Unknown History lactobacillus combination no.9 4 4,000 mmu cells PO DAILY 12/21/21 Unknown History billion cell capsule (Adult 50 Plus Probiotic) levothyroxine 137 mcg tablet 137 mcg PO DAILY 12/21/21 Unknown History losartan 50 mg tablet 50 mg PO DAILY 30 days #30 tabs Unknown History Allergy/AdvReac Type Severity Reaction Status Date / Time adhesive tape Allergy Mild Unknown Verified 07/13/24 19:16 methimazole (From Tapazole) Allergy Mild Unknown Verified 07/13/24 19:16 Sulfa (Sulfonamide Allergy PT CAN'T Verified 07/13/24 19:16 Antibiotics) REMEMBER Family History Mother CVA (cerebral vascular accident) Cancer Colon cancer Thyroid disorder Father Heart disease Hypertension Cancer Diabetes Brother Myocardial infarction from [place] Other Anxiety and depression Arthritis Bowel disease Psychiatric care Skin cancer Surgical History Hx of colonoscopy Hx of eye surgery History of loop recorder (12/13/17) History of carpal tunnel release Hx of LASIK H/O knee surgery History of tonsillectomy Social History Smoking Status: Never smoker second hand exposure: No alcohol intake: never substance use type: does not use caffeine: Yes frequency: does not exercise seatbelt use: always additional social history: DOES NOT USE ASPIRIN DOES NOT USE IBUPROFEN (more content not included)... Normal [facility] Erythrocyte distribution wid th ratioOrdered By: Shaheen Prajapati on 07-13-2024 Erythrocyte distribution width (RBC) [Ratio] 11.9 % 11.6-14.6 [facility] Erythrocyte distribution wid th standard deviationOrdered By: Shaheen Washburn on 07-13-2024 Erythrocyte distribution width (RBC) [Ratio] 41.2 fl 35.1-43.9 [facility] Glomerular filtration rate ( GFR) estimation/1.73 sq m using serum, plasma, or whole bOrdered By: Shaheen Prajapati on 07-13-2024 GFR/1.73 sq M.predicted among non-blacks MDRD (S/P/Bld) [Vol rate/Area] 71 mL/min/{1.73_m2} >60 [facility] Comment on above: mL/min/1.73m2 CKD-EP I Creatinine Equation (2020) Hematocrit Auto (Bld) [Volum e fraction]Ordered By: Shaheen Prajapati on 07-13-2024 Hematocrit (Bld) [Volume fraction] 41.2 % 40-54 [facility] Hemoglobin measurementOrdere d By: Shaheen Prajapati on 07-13-2024 Hemoglobin (Bld) [Mass/Vol] 14.2 g/dL 13.0-16.5 [facility] L499.0042on 07-13-2024 Trop T High Sen Normal <=22 [facility] Comment on above: Result Comment: Canc elled via OM: Order cancelled - Patient discharged Performed By: #### L 300.8000, L503.7505 #### [facility] [address] [place], [address] L501.4021on 07-13-2024 Trop T High Sen 22 ng/L Normal <=22 [facility] Comment on above: Performed By: #### L 300.8000, L503.7505 #### [facility] [address] [place], [address] L503.7505on 07-13-2024 Natriuretic peptide B (Bld) [Mass/Vol] 143 pg/mL Normal <=900 [facility] Comment on above: Result Comment: Hear t Failure Unlikely: < 300 pg/mL Heart Failure Likely < 50 Years: > 450 pg/mL 50-75 Years: > 900 pg/mL >75 Years: > 1800 pg/mL Performed By: #### L 300.8000, L503.7505 #### [facility] [address] [place], [address] MCV (mean corpuscular volume ) determinationOrdered By: Shaheen Prajapati on 07-13-2024 MCV (RBC) [Entitic vol] 94.7 fL High 80-94 [facility] Magnesiumon 07-13-2024 Magnesium [Mass/Vol] 2.0 mg/dL Normal 1.5-2.2 [facility] Comment on above: Performed By: #### L 300.8000, L503.7505 #### [facility] [address] [place], [address] Magnesium measurement (mass/ volume)Ordered By: Shaheen Prajapati on 07-13-2024 Magnesium (Unsp spec) [Mass/Vol] 2.0 mg/dL 1.5-2.2 [facility] Mean corpuscular hemoglobin (MCH) determinationOrdered By: Shaheen Prajapati on 07-13-2024 MCH (RBC) [Entitic mass] 32.6 pg High 27.0-32.0 [facility] Mean corpuscular hemoglobin concentration (MCHC) determinationOrdered By: Shaheen Prajapati on 07-13-2024 MCHC (RBC) [Mass/Vol] 34.5 g/dL 32-36 [facility] Mean platelet volume determi nationOrdered By: Shaheen Prajapati on 07-13-2024 Platelet mean volume (Bld) [Entitic vol] 11.0 fL 6.2-12.0 [facility] Natriuretic peptide.B prohor joss N-Terminal [Mass/volume] in Serum or PlasmaOrdered By: Shaheen Prajapati on 07-13-2024 Natriuretic peptide.B prohormone N-Terminal [Mass/Vol] 143 pg/mL <900 [facility] Comment on above: Heart Failure Unlike ly: < 300 pg/mLHeart Failure Likely< 50 Years: > 450 pg/mL50-75 Years: > 900 pg/mL>75 Years: > 1800 pg/mL Platelet countOrdered By: Fahad Prajapati on 07-13-2024 Platelets (Bld) [#/Vol] 152 10*3/uL 150-450 [facility] Potassium measurement (mass/ volume)Ordered By: Shaheen Prajapati on 07-13-2024 Potassium (Unsp spec) [Mass/Vol] 3.8 mmol/L 3.3-5.1 [facility] RBC Auto (Bld) [#/Vol]Ordere d By: Shaheen Prajapati on 07-13-2024 RBC (Bld) [#/Vol] 4.35 10*6/uL Low 4.6-6.2 [facility] Serum creatinine measurement (mass/volume)Ordered By: Shaheen Prajapati on 07-13-2024 Creatinine [Mass/Vol] 1.09 mg/dL 0.70-1.20 [facility] Serum glucose measurement (m ass/volume)Ordered By: Shaheen Prajapati on 07-13-2024 Glucose [Mass/Vol] 117 mg/dL High 70-99 [facility] Serum or plasma calcium martell urement (mass/volume)Ordered By: Shaheen Washburn on 07-13-2024 Calcium [Mass/Vol] 9.1 mg/dL 7.6-11.0 [facility] Serum or plasma urea nitroge n measurement (mass/volume)Ordered By: Shaheen Prajapati on 07-13-2024 Urea nitrogen [Mass/Vol] 21 mg/dL High 4-19 [facility] Sodium levelOrdered By: Donato Prajapati on 07-13-2024 Sodium [Moles/Vol] 137 mmol/L 133-145 [facility] TSH DL <= 0.005 mIU/L QnOrde red By: Shaheen Prajapati on 07-13-2024 TSH Qn 1.870 uIU/mL 0.300-4.200 [facility] Thyroid Stim Hormone (TSH)on 07-13-2024 TSH 1.870 uIU/mL Normal 0.300-4.200 [facility] Comment on above: Performed By: #### L 300.8000, L503.7505 #### [facility] [address] [place], [address] Troponin T.cardiac [Mass/vol ume] in Serum or Plasma by High sensitivity methodOrdered By: Shaheen Prajapati on 07-13-2024 Troponin T.cardiac High sensitivity method [Mass/Vol] 22 ng/L <22 [facility] White blood cell (WBC) count Ordered By: Shaheen Prajapati on 07-13-2024 WBC (Bld) [#/Vol] 7.6 10*3/uL 4.4-11.0 [facility] Orthopedic Visit Reporton Orthopedic Visit Report [facility] [address] [place] [phone] OFFICE VISIT Date of Service: 06/18/24 MR#: [id number] Acct: [id number] Name: TREVRO COLEMAN Rep #: [id number] : 1950 Provider: Dr. Avery pretty MD Age/Sex: 74/M [place] [facility] [place] Status: Signed with Addenda ADDENDUM by CARLO Meyers on 06/18/24 at 1451 Office Procedure Documentation entered by Yesenia Meyers MA 06/18/24 14:51: Ortho Injections Injections Yes Subacromial Injection Left Is this a patient provided medication?: No Details: Obtained consent for injection. Under sterile conditions, injected the patients left shoulder with 2cc Kenalog, and 4cc Bupivacaine. The patient tolerated the injection well without any noted complication. Patient should call our office if redness develops, pain worsens or if they have any concerns. Office Meds Kenalog 40 mg/mL suspension for injection Performing Provider: Avery Hu MD Performing Location: [facility] Administered by: Avery Hu MD on 06/18/24 14:50 Dose Route Admin Location Dispensed Lot Number Expiration Date ND Man ufacturer 40 mg intra-articular Left shoulder 1 mL [id number] 06/11/25 6039-2728-29 [facility] Date cc: * Signed Intake Vital Signs 04/27/24 07:43 06/18/24 14:09 Height 6 ft 6 ft Weight: 228 lb 222 lb 5 oz BMI 30.9 30.1 BP 127/79 H Blood Pressure Location Lt brachial Position Sitting Respiration 18 Pulse 66 Pulse Source Monitor Pulse Oximetry (%) 98 Intake Visit Reasons: LEFT SHOULDER Chief Complaint: Left shoulder pain Accompanied by: Self Is patient in pain?: Yes Pain scale (1-10): 2 Allergies adhesive tape Allergy (Mild, Verified 06/18/24 14:12) Unknown methimazole (From Tapazole) Allergy (Mild, Verified 06/18/24 14:12) Unknown Sulfa (Sulfonamide Antibiotics) Allergy (Verified 06/18/24 14:12) PT CAN'T REMEMBER Medications ???Medication ???Instructions ???Recorded ???Confirmed ???Type clopidogrel 75 mg tablet 75 mg PO DAILY #30 tabs 10/28/17 0 06/18/24 Rx cholecalciferol (vitamin D3) 50 2,000 unit PO DAILY 11/27/1706/18 History mcg (2,000 unit) capsule multivitamin 1 tab PO DAILY 11/27/17 06/18/24 H istory atorvastatin 40 mg tablet 40 mg PO QHS 05/25/19 06/18/24 His tory magnesium oxide 500 mg capsule 500 mg PO DAILY 05/25/19 06/18/24 History hydrochlorothiazide 12.5 mg tablet 12.5 mg PO BID 12/21/21 06/18/24 History lactobacillus combination no.9 4 4,000 mmu cells PO DAILY 12/21/21 06/18/24 History billion cell capsule (Adult 50 Plus Probiotic) levothyroxine 137 mcg tablet 137 mcg PO DAILY 12/21/21 06/18/24 History losartan 50 mg tablet 50 mg PO DAILY 30 days #30 tabs 06/18/24 History Have you fallen in the past year?: No PFSH Medical History Left shoulder pain Wears glasses Arthritis High cholesterol Back pain TIA (transient ischemic attack) Stroke/cerebrovascula r accident Syncope Non-smoker Leg cramps History of echocardiogram Cardiology follow-up encounter Orthostatic hypotension Hemorrhoids Open fracture of distal phalanx of left middle finger Open fracture of distal phalanx of left index finger Laceration of left middle finger without foreign body with damage to nail Contact with powered saw as cause of accidental injury Laceration of left index finger without foreign body with damage to nail Injury of nail bed of finger of left hand Hypertension Cryptogenic stroke Obesity Rectal bleed Hypothyroidism Lightheadedness Right bundle branch block Essential (primary) hypertension HLD (hyperlipidemia) CVA (cerebral vascular accident) (10/2017) Surgical History Hx of colonoscopy Hx of eye surgery History of loop recorder (12/13/17) History of carpal tunnel release Hx of LASIK H/O knee surgery History of tonsillectomy Family History Mother CVA (cerebral vascular accident) Cancer Colon cancer Thyroid disorder Father Heart disease Hypertension Cancer Diabetes Brother Myocardial infarction from [place] Other Anxiety and depression Arthritis Bowel disease Psychiatric care Skin cancer Social History Smoking Status: Never smoker second hand exposure: No alcohol intake: never substance use type: does not use caffeine: Yes frequency: does not exercise seatbelt use: always additional social history: DOES NOT USE ASPIRIN (more content not included)... Normal [facility] Shoulder min 2 Viewson 06-18 Shoulder min 2 Views [facility] [address] [place] [address] Shoulder min 2 Views MR#: [id number] Acct: [id number] Name: SHANNENMANNIETREVOR THOMPSON Rep #: [id number] : 1950 M 74 From: Alfonso cruz MD PCP: Dr. Liseth Del Valle DO Status: DEP AMB Study: Shoulder min 2 Views Date of Exam: 06/18/24 Exam# [id number] Ordering Dr: Avery Hu MD PROCEDURE: SHOULDER MIN 2 VIEWS 06/18/2024 REASON FOR EXAM: PAIN TECHNIQUE: Three views of the left shoulder COMPARISON: None FINDINGS: No acute fracture or dislocation. Mild degenerative changes of the acromioclavicular and glenohumeral joints. Acromiohumeral interval is maintained. No suspicious lytic or blastic lesion. No focal soft tissue abnormality. Imaged lung triana are clear. RAD/Shoulder min 2 Views IMPRESSION: No acute findings. Mild osteoarthritis. Reading Location: [facility] CC: Dr. Liseth Del Valle DO; Dr. Avery Hu MD Skein Straightener: Signed Normal [facility] Gastroenterology Visit Repor ton 06-16-2024 Gastroenterology Visit Report [facility] [address] [place] [address] OFFICE VISIT Date of Service: 06/16/24 MR#: [id number] Acct: [id number] Name: VIRGINIATREVOR FELICITA Rep #: [id number] : 1950 Provider: RANDY Gomez Age/Sex: 74/M [place] [facility] [place] Signed Intake Vital Signs 04/27/24 07:43 Height 6 ft Weight: 228 lb BMI 30.9 BP 127/79 H Blood Pressure Location Lt brachial Position Sitting Respiration 18 Pulse 66 Pulse Source Monitor Pulse Oximetry (%) 98 Intake Visit Reasons: Gastroesophageal reflux disease (GERD) Chief Complaint: excessive eructation Quotation Clerk Required: No Accompanied by: Self Is patient in pain?: No Allergies adhesive tape Allergy (Mild, Verified 06/16/24 14:30) Unknown methimazole (From Tapazole) Allergy (Mild, Verified 06/16/24 14:30) Unknown Sulfa (Sulfonamide Antibiotics) Allergy (Verified 06/16/24 14:30) PT CAN'T REMEMBER Medications ???Medication ???Instructions ???Recorded ???Confirmed ???Type clopidogrel 75 mg tablet 75 mg PO DAILY #30 tabs 10/28/17 0 06/16/24 Rx cholecalciferol (vitamin D3) 50 2,000 unit PO DAILY 11/27/1706/16 History mcg (2,000 unit) capsule multivitamin 1 tab PO DAILY 11/27/17 06/16/24 H istory atorvastatin 40 mg tablet 40 mg PO QHS 05/25/19 06/16/24 His tory magnesium oxide 500 mg capsule 500 mg PO DAILY 05/25/19 06/16/24 History hydrochlorothiazide 12.5 mg tablet 12.5 mg PO BID 12/21/21 06/16/24 History lactobacillus combination no.9 4 4,000 mmu cells PO DAILY 12/21/21 06/16/24 History billion cell capsule (Adult 50 Plus Probiotic) levothyroxine 137 mcg tablet 137 mcg PO DAILY 12/21/21 06/16/24 History losartan 50 mg tablet 50 mg PO DAILY 30 days #30 tabs 06/16/24 History Have you fallen in the past year?: No Nurse's Note: Is burping a lot, it wakes him up in the middle of the night. Some bloating, not much. [facility] Medical History (Updated 06/16/24 @ 15:01 by RANDY Gomez) Wears glasses Arthritis High cholesterol Back pain TIA (transient ischemic attack) Stroke/cerebrovascula r accident Syncope Non-smoker Leg cramps History of echocardiogram Cardiology follow-up encounter Orthostatic hypotension Hemorrhoids Open fracture of distal phalanx of left middle finger Open fracture of distal phalanx of left index finger Laceration of left middle finger without foreign body with damage to nail Contact with powered saw as cause of accidental injury Laceration of left index finger without foreign body with damage to nail Injury of nail bed of finger of left hand Hypertension Cryptogenic stroke Obesity Rectal bleed Hypothyroidism Lightheadedness Right bundle branch block Essential (primary) hypertension HLD (hyperlipidemia) CVA (cerebral vascular accident) (10/2017) Surgical History Hx of colonoscopy Hx of eye surgery History of loop recorder (12/13/17) History of carpal tunnel release Hx of LASIK H/O knee surgery History of tonsillectomy Family History Mother CVA (cerebral vascular accident) Cancer Colon cancer Thyroid disorder Father Heart disease Hypertension Cancer Diabetes Brother Myocardial infarction from [place] Other Anxiety and depression Arthritis Bowel disease Psychiatric care Skin cancer Social History Smoking Status: Never smoker second hand exposure: No alcohol intake: never substance use type: does not use caffeine: Yes frequency: does not exercise seatbelt use: always additional social history: DOES NOT USE ASPIRIN DOES NOT USE IBUPROFEN HPI HPI Chief Complaint: excessive eructation Details: TREVOR COLEMAN, is a 74 M who presents to the office today for establishment with [facility]. Pt has been having increased eructation over the past year. This is happening mostly after eating a meal and at night time. It will wake him up when he is sleeping on occasion. He has been on PPI therapy about 6 months ago which gave him constipation and did not helped with his burping. He has tried sleeping on his right side and up right with little benefit. His last colonoscopy was about [address] Baltazar. He has never had an EGD before. He denies abd pain, constipation, diarrhea, heartburn or n/v. ROS Const Constitutional: No fatigue, fever(s) or weight change ENT ENT: No difficulty swallowing Gastro GI: No abdominal pain, belching, bloating, change in bowel habits, change in stool character, coffee ground emesis, constipation, cramping, diarrhea, heartburn, difficulty swallowing, feeling full early, excessive flatus, incontinent (more content not included)... Normal [facility] Cardiology Visit Reporton Cardiology Visit Report [facility] [address] [place] [address] OFFICE VISIT Date of Service: 04/27/24 MR#: [id number] Acct: [id number] Name: TREVOR COLEMAN Rep #: [id number] : 1950 Provider: RANDY Farmer Age/Sex: 74/M [place] [facility] [place] Status: Signed HPI HPI History of Present Illness Details: Trevor Coleman is a 74-year-old male who presents to the office today for 1 year follow-up for monitoring of cardiovascular disease. Patient has a history of cryptogenic stroke, hypertension, bradycardia. Patient had loop recorder placed shortly after experiencing stroke and resulted in no arrhythmias. Patient also had echocardiogram around time of stroke with normal LVEF and stage I diastolic dysfunction. Patient return to office in 2022 with concerns of dizziness and bradycardia noted on smart watch. Patient underwent 30-day event monitor which did not demonstrate any significant abnormality and an average heart rate of 74.2 bpm. Patient has a known right bundle branch block seen on EKG in the past. Since last seen, approximately 1 year ago, patient reports doing well. Only symptom patient reports is dizziness when bending over. Patient reports this is chronic since 2018/time of stroke. Patient golfs 5-6days/week when weather is nice and patient walks 2-3 miles without any concerning symptoms. Further ROS below. Intake Vital Signs 05/02/23 09:23 04/27/24 07:43 Height 6 ft 6 ft Weight: 229 lb 228 lb BMI 31.0 30.9 BP 134/88 H 127/79 H Blood Pressure Location Lt brachial Lt brachial Position Sitting Sitting Respiration 18 18 Pulse 65 66 Pulse Source Monitor Monitor Pulse Oximetry (%) 99 98 Intake Visit Reasons: 1 Y FU Quotation Clerk Required: No Is patient in pain?: No Allergies adhesive tape Allergy (Mild, Verified 04/27/24 13:28) Unknown methimazole (From Tapazole) Allergy (Mild, Verified 04/27/24 13:28) Unknown Sulfa (Sulfonamide Antibiotics) Allergy (Verified 04/27/24 13:28) PT CAN'T REMEMBER Medications ???Medication ???Instructions ???Recorded ???Confirmed ???Type triamcinolone acetonide 0.1 % 1 applic topical DAILY 07/03/16 History topical ointment clopidogrel 75 mg tablet 75 mg PO DAILY #30 tabs 10/28/17 0 04/27/24 Rx cholecalciferol (vitamin D3) 50 2,000 unit PO DAILY 11/27/1704/27 History mcg (2,000 unit) capsule multivitamin 1 tab PO DAILY 11/27/17 04/27/24 H istory atorvastatin 40 mg tablet 40 mg PO QHS 05/25/19 04/27/24 His tory magnesium oxide 500 mg capsule 500 mg PO DAILY 05/25/19 04/27/24 History losartan 50 mg tablet 75 mg PO DAILY 30 days #30 tabs 04/27/24 History hydrochlorothiazide 12.5 mg tablet 12.5 mg PO BID 12/21/21 04/27/24 History lactobacillus combination no.9 4 4,000 mmu cells PO DAILY 12/21/21 04/27/24 History billion cell capsule (Adult 50 Plus Probiotic) levothyroxine 137 mcg tablet 137 mcg PO DAILY 12/21/21 04/27/24 History Ejection fraction %: 60 Have you fallen in the past year?: No PFSH Medical History (Updated 04/27/24 @ 14:27 by RANDY Farmer) Wears glasses Arthritis High cholesterol Back pain TIA (transient ischemic attack) Stroke/cerebrovascula r accident Syncope Non-smoker Leg cramps History of echocardiogram Cardiology follow-up encounter Orthostatic hypotension Hemorrhoids Open fracture of distal phalanx of left middle finger Open fracture of distal phalanx of left index finger Laceration of left middle finger without foreign body with damage to nail Contact with powered saw as cause of accidental injury Laceration of left index finger without foreign body with damage to nail Injury of nail bed of finger of left hand Hypertension Cryptogenic stroke Obesity Rectal bleed Hypothyroidism Lightheadedness Right bundle branch block Essential (primary) hypertension HLD (hyperlipidemia) CVA (cerebral vascular accident) (10/2017) Surgical History Hx of colonoscopy Hx of eye surgery History of loop recorder (12/13/17) History of carpal tunnel release Hx of LASIK H/O knee surgery History of tonsillectomy Family History Mother CVA (cerebral vascular accident) Cancer Colon cancer Thyroid disorder Father Heart disease Hypertension Cancer Diabetes Brother Myocardial infarction from [place] Other Anxiety and depression Arthritis Bowel disease Psychiatric care Skin cancer Social History Smoking Status: Never smoker second hand exposure: No alcohol intake: never substance use type: does not use caffeine: Yes frequency: does not exercise seatbelt us (more content not included)... Normal [facility] Free T3on 04-25-2024 Free T3 [Mass/Vol] 2.8 pg/mL Normal 2.18-3.98 [facility] Comment on above: Performed By: #### L 506.0400, L501.9520, L501.31787 #### [facility] [address] [place], [place], [id number] Free [id number] By: Liseth nicholas on 04-25-2024 Free T3 [Mass/Vol] 2.8 pg/mL 2.18-3.98 [facility] Free Triiodothyronine (T3) pg/dL 2.8 pg/mL 2.18-3.98 [facility] T4 Free Directon 04-25-2024 T4 FREE DIRECT 1.60 ng/dL High 0.76-1.46 [facility] Comment on above: Performed By: #### L 300.8000, L503.7505 #### [facility] [address] [place], [place], [id number] T4 freeOrdered By: Liseth nicholas on 04-25-2024 Free T4 [Mass/Vol] 1.60 ng/dL High 0.76-1.46 [facility] TSH DL <= 0.005 mIU/L QnOrde red By: Liseht Rickettsjosselyn on 04-25-2024 Thyroid Stimulating Hormone (TSH) 0.735 uIU/mL 0.300-4.200 [facility] TSH Qn 0.735 uIU/mL 0.300-4.200 [facility] Thyroid Stim Hormone (TSH)on 04-25-2024 TSH 0.735 uIU/mL Normal 0.300-4.200 [facility] Comment on above: Performed By: #### L 506.0400, L501.9520, L501.47407 #### [facility] [address] [place], [place], [id number] No Panel InformationOrdered By: Liseth Del Valle on 04-29-2023 Free Triiodothyronine (T3) pg/dL 2.2 pg/mL 2.18-3.98 [facility] Serum or plasma thyroid stim ulating hormone (TSH) measurement (units/volume)Ordered By: Liseth Del Valle on 04-29-2023 TSH Qn 1.55 uIU/mL 0.358-3.74 [facility] Thin prep Papanicolaou smear with manual screeningOrdered By: Liseth Del Valle on 04-29-2023 Thin prep Papanicolaou smear with manual screening 1.25 ng/dL 0.76-1.46 [facility] Basophil percentageOrdered B y: Liseth Del Valle on 01-17-2023 Bilirubin [Mass/Vol] 1.20 mg/dL 0.20-1.00 [facility] Comment on above: For patients on eltr ombopag therapy, use of Dimension [place] TBIL is not recommended. Chloride [Moles/Vol] 105 mmol/L 98-107 [facility] Glucose [Mass/Vol] 109 mg/dL 74-106 [facility] Comment on above: Fasting Glucose resu lt from 100 to 125 mg/dL suggests IMPAIRED HOMEOSTASIS per A.D.A. criteria. Potassium [Moles/Vol] 3.6 mmol/L 3.5-5.1 [facility] Protein [Mass/Vol] 6.6 g/dL 6.4-8.2 [facility] Sodium [Moles/Vol] 138 mmol/L 136-145 [facility] Laboratory - Chemistry and C hemistry - challengeOrdered By: Liseth Del Valle on 01-17-2023 ALP [Catalytic activity/Vol] 41 U/L 45-117 [facility] ALT [Catalytic activity/Vol] 31 U/L 16-61 [facility] CO2 [Moles/Vol] 32.0 mmol/L 21.0-32.0 [facility] Free T4 [Mass/Vol] 1.24 ng/dL 0.76-1.46 [facility] Globulin (S) [Mass/Vol] 3.2 g/dL 2.2-4.2 [facility] Urea nitrogen/Creatinine [Mass ratio] 17.1 mg/mg 10-20 [facility] No Panel InformationOrdered By: Liseth Del Valle on 01-17-2023 Estimated GFR (MDRD) Amer 84 mL/min >60 [facility] Comment on above: GFR Calc Estimated GFR (MDRD) Non-Af Amer 69 mL/min >60 [facility] Comment on above: Non- GFR Calc Free Triiodothyronine (T3) pg/dL 2.0 pg/mL 2.18-3.98 [facility] Thyroid Stimulating Hormone (TSH) 4.64 uIU/mL 0.358-3.74 [facility] Serum or plasma albumin martell urement (mass/volume)Ordered By: Liseth Del Valle on 01-17-2023 Albumin [Mass/Vol] 3.4 g/dL 3.2-5.0 [facility] Serum or plasma albumin/glob ulin mass ratioOrdered By: Liseth Del Valle on 01-17-2023 Albumin/Globulin [Mass ratio] 1.1 {ratio} 0.9-2.4 [facility] Serum or plasma calcium martell urement (mass/volume)Ordered By: Liseth Del Valle on 01-17-2023 Calcium [Mass/Vol] 8.5 mg/dL 8.5-10.1 [facility] Serum or plasma creatinine m easurement (mass/volume)Ordered By: Liseth Del Valle on 01-17-2023 Creatinine [Mass/Vol] 1.11 mg/dL 0.70-1.30 [facility] Comment on above: The validity of the calculated GFR & GFRAA in patients over 70 years has not been determined. Clinical correlation is essential. Serum or plasma urea nitroge n measurement (mass/volume)Ordered By: Liseth Del Valle on 01-17-2023 Urea nitrogen [Mass/Vol] 19 mg/dL 7-18 [facility] Thin prep Papanicolaou smear with manual screeningOrdered By: Liseth Del Valle on 01-17-2023 Thin prep Papanicolaou smear with manual screening 30 U/L 15-37 [facility] Thin prep Papanicolaou smear with manual screening 1 5-15 [facility] Absolute lymphocyte countOrd ered By: Dr. Del Valle on 07-13-2022 Lymphocytes Auto (Unsp spec) [#/Vol] 1.85 10*3/uL 0.83-4.51 [facility] Basophil percentageOrdered B y: Dr. Del Valle on 07-13-2022 Basophils/100 WBC (Bld) 0.9 % 0-1 [facility] Bilirubin [Mass/Vol] 0.90 mg/dL 0.20-1.00 [facility] Comment on above: For patients on eltr ombopag therapy, use of Dimension [place] TBIL is not recommended. Chloride [Moles/Vol] 107 mmol/L 98-107 [facility] Eosinophils/100 WBC (Bld) 1.9 % 0-5 [facility] Glucose [Mass/Vol] 107 mg/dL 74-106 [facility] Comment on above: Fasting Glucose resu lt from 100 to 125 mg/dL suggests IMPAIRED HOMEOSTASIS per A.D.A. criteria. Neutrophils (Bld) [#/Vol] 3.4 10*3/uL 2.0-7.7 [facility] Neutrophils/100 WBC (Bld) 57.2 % 47-70 [facility] Potassium [Moles/Vol] 4.2 mmol/L 3.5-5.1 [facility] Protein [Mass/Vol] 6.8 g/dL 6.4-8.2 [facility] Sodium [Moles/Vol] 141 mmol/L 136-145 [facility] WBC (Bld) [#/Vol] 5.9 10*3/uL 4.4-11.0 [facility] Blood erythrocytes count (nu mber/volume)Ordered By: Dr. Del Valle on 07-13-2022 RBC (Bld) [#/Vol] 4.51 10*6/uL 4.6-6.2 [facility] Blood hemoglobin measurement (mass/volume)Ordered By: Dr. Del Valle on 07-13-2022 Hemoglobin (Bld) [Mass/Vol] 14.6 g/dL 13.0-16.5 [facility] Blood lymphocytes/100 leukoc ytesOrdered By: Dr. Del Valle on 07-13-2022 Lymphocytes/100 WBC (Bld) 31.5 % 19-41 [facility] Blood monocytes/100 leukocyt esOrdered By: Dr. Del Valle on 07-13-2022 Monocytes/100 WBC (Bld) 8.3 % 0-10 [facility] Blood platelet mean volumeOr dered By: Dr. Del Valle on 07-13-2022 Platelet mean volume (Bld) [Entitic vol] 11.4 fL 6.2-12.0 [facility] Determination of erythrocyte mean corpuscular volume (MCV)Ordered By: Dr. Del Valle on 07-13-2022 MCV (RBC) [Entitic vol] 96.5 fL 80-94 [facility] Hematocrit Auto (Bld) [Volum e fraction]Ordered By: Dr. Del Valle on 07-13-2022 Hematocrit (Bld) [Volume fraction] 43.5 % 40-54 [facility] Laboratory - Chemistry and C hemistry - challengeOrdered By: Dr. Del Valle on 07-13-2022 ALP [Catalytic activity/Vol] 36 U/L 45-117 [facility] ALT [Catalytic activity/Vol] 43 U/L 16-61 [facility] CO2 [Moles/Vol] 29.0 mmol/L 21.0-32.0 [facility] Free T4 [Mass/Vol] 1.16 ng/dL 0.76-1.46 [facility] Globulin (S) [Mass/Vol] 3.2 g/dL 2.2-4.2 [facility] Urea nitrogen/Creatinine [Mass ratio] 17.9 mg/mg 10-20 [facility] Laboratory - Hematology and Cell countsOrdered By: Dr. Del Valle on 07-13-2022 Erythrocyte distribution width (RBC) [Entitic vol] 41.8 fL 35.1-43.9 [facility] Erythrocyte distribution width (RBC) [Ratio] 11.9 % 11.6-14.6 [facility] Immature granulocytes/100 WBC (Bld) 0.200 % 0.0-0.9 [facility] Comment on above: IG% - Immature Granu locytes (promyelocytes, myelocytes and metamyelocytes) > 1% indicates that a LEFT SHIFT is Present. MCH (RBC) [Entitic mass] 32.4 pg 27.0-32.0 [facility] Nucleated RBC/100 WBC (Bld) [Ratio] 0 % 0-5 [facility] MCHC Auto (RBC) [Mass/Vol]Or dered By: Dr. Del Valle on 07-13-2022 MCHC (RBC) [Mass/Vol] 33.6 g/dL 32-36 [facility] No Panel InformationOrdered By: Dr. Del Valle on 07-13-2022 Estimated GFR (MDRD) Amer 83 mL/min >60 [facility] Comment on above: GFR Calc Estimated GFR (MDRD) Non-Af Amer 68 mL/min >60 [facility] Comment on above: Non- GFR Calc Free Triiodothyronine (T3) pg/dL 1.9 pg/mL 2.18-3.98 [facility] Prostate Specific Antigen Screen 4.04 ng/mL 0.00-4.00 [facility] Comment on above: This test was perfor med using the TPSA assay method for the[facility] chemistry system. Values obtained with differentassay methods cannot be used interchangably.When changing PSA assays in the course of monitoring apatient, additional sequential testing should be carriedout to confirm baseline values. Thyroid Stimulating Hormone (TSH) 2.51 uIU/mL 0.358-3.74 [facility] Platelets bldOrdered By: Dr. Del Valle on 07-13-2022 Platelets (Bld) [#/Vol] 161 10*3/uL 150-450 [facility] Serum or plasma albumin martell urement (mass/volume)Ordered By: Dr. Del Valle on 07-13-2022 Albumin [Mass/Vol] 3.6 g/dL 3.2-5.0 [facility] Serum or plasma albumin/glob ulin mass ratioOrdered By: Dr. Del Valle on 07-13-2022 Albumin/Globulin [Mass ratio] 1.1 {ratio} 0.9-2.4 [facility] Serum or plasma calcium martell urement (mass/volume)Ordered By: Dr. Del Valle on 07-13-2022 Calcium [Mass/Vol] 8.6 mg/dL 8.5-10.1 [facility] Serum or plasma creatinine m easurement (mass/volume)Ordered By: Dr. Del Valle on 07-13-2022 Creatinine [Mass/Vol] 1.12 mg/dL 0.70-1.30 [facility] Comment on above: The validity of the calculated GFR & GFRAA in patients over 70 years has not been determined. Clinical correlation is essential. Serum or plasma urea nitroge n measurement (mass/volume)Ordered By: Dr. Del Valle on 07-13-2022 Urea nitrogen [Mass/Vol] 20 mg/dL 7-18 [facility] Thin prep Papanicolaou smear with manual screeningOrdered By: Dr. Del Valle on 07-13-2022 Thin prep Papanicolaou smear with manual screening 38 U/L 15-37 [facility] Thin prep Papanicolaou smear with manual screening 5 5-15 [facility] Whole blood hemoglobin A1c/t otal hemoglobin ratio (mass fraction)Ordered By: Dr. Del Valle on 07-13-2022 HbA1c (Bld) [Mass fraction] 5.8 % 3.8-5.6 [facility] Comment on above: Normal < 5.7 % Predi abetic 5.7 - 6.4 % Diabetic >or= 6.5 % Please note range changes. Basophil percentageon 2021 Cholesterol [Mass/Vol] 126 mg/dL <200 [facility] Work Phone: Comment on above: <200 mg/dL Desirable 200-240 mg/dL Borderline >240 mg/dL High Risk Triglyceride [Mass/Vol] 131 mg/dL <199 [facility] Work Phone: Comment on above: The drugs N-Acetylcy steine and Metamizole may falsely depress this assay.Serum Triglycerides Reference Interval Normal <150 mg/dL Borderline high 150 - 199 mg/dL High 200 - 499 mg/dL Very High > or = 500 mg/dL Laboratory - Chemistry and C hemistry - challengeon 01-30-2022 Free T4 [Mass/Vol] 1.24 ng/dL 0.76-1.46 [facility] Work Phone: [phone] No Panel Informationon 01-30 Free Triiodothyronine (T3) pg/dL 2.2 pg/mL 2.18-3.98 [facility] Work Phone: [phone] Thyroid Stimulating Hormone (TSH) 5.63 uIU/mL 0.358-3.74 [facility] Work Phone: [phone] Serum or plasma cholesterol in HDL measurement (mass/volume)on 01-30-2022 Cholesterol in HDL [Mass/Vol] 39 mg/dL >40 [facility] Work Phone: [phone] Comment on above: The drugs N-Acetylcy steine and Metamizole may falsely depress this assay. Reference Range HDL <40 mg/dL Low HDL Cholesterol HDL >or= 60 mg/dL High HDL Cholesterol Serum or plasma cholesterol in VLDL measurement (mass/volume)on 01-30-2022 Cholesterol in VLDL [Mass/Vol] 26 mg/dL 5-40 [facility] Work Phone: [phone] Serum or plasma low density lipoprotein (LDL) cholesterol measurement (mass/volume)on 01-30-2022 Cholesterol in LDL [Mass/Vol] 61 mg/dL 0-130 [facility] Work Phone: [phone] Absolute lymphocyte counton 10-30-2021 Lymphocytes Auto (Unsp spec) [#/Vol] 1.84 10*3/uL 0.83-4.51 [facility] Work Phone: [phone] Basophil percentageon 2021 Basophils/100 WBC (Bld) 0.5 % 0-1 [facility] Work Phone: [phone] Bilirubin [Mass/Vol] 1.00 mg/dL 0.20-1.00 [facility]: Comment on above: For patients on eltr ombopag therapy, use of Dimension [place] TBIL is not recommended. Chloride [Moles/Vol] 104 mmol/L 98-107 [facility] Work Phone: Eosinophils/100 WBC (Bld) 1.6 % 0-5 [facility] Work Phone: Glucose [Mass/Vol] 92 mg/dL 74-106 [facility] Work Phone: Neutrophils (Bld) [#/Vol] 3.0 10*3/uL 2.0-7.7 [facility] Work Phone: Neutrophils/100 WBC (Bld) 54.8 % 47-70 [facility] Work Phone: Potassium [Moles/Vol] 3.8 mmol/L 3.5-5.1 [facility] Work Phone: Protein [Mass/Vol] 6.8 g/dL 6.4-8.2 [facility] Work Phone: Sodium [Moles/Vol] 140 mmol/L 136-145 [facility] Work Phone: WBC (Bld) [#/Vol] 5.5 10*3/uL 4.4-11.0 [facility] Work Phone: Blood erythrocytes count (nu mber/volume)on 10-30-2021 RBC (Bld) [#/Vol] 4.51 10*6/uL 4.6-6.2 [facility] Work Phone: Blood hemoglobin measurement (mass/volume)on 10-30-2021 Hemoglobin (Bld) [Mass/Vol] 14.6 g/dL 13.0-16.5 [facility] Work Phone: Blood lymphocytes/100 leukoc yteson 10-30-2021 Lymphocytes/100 WBC (Bld) 33.3 % 19-41 [facility] Work Phone: Blood monocytes/100 leukocyt eson 10-30-2021 Monocytes/100 WBC (Bld) 9.6 % 0-10 [facility] Work Phone: Blood platelet mean volumeon 10-30-2021 Platelet mean volume (Bld) [Entitic vol] 11.6 fL 6.2-12.0 [facility] Work Phone: Determination of erythrocyte mean corpuscular volume (MCV)on 10-30-2021 MCV (RBC) [Entitic vol] 96.5 fL 80-94 [facility] Work Phone: Hematocrit Auto (Bld) [Volum e fraction]on 10-30-2021 Hematocrit (Bld) [Volume fraction] 43.5 % 40-54 [facility] Work Phone: Laboratory - Chemistry and C hemistry - challengeon 10-30-2021 ALP [Catalytic activity/Vol] 35 U/L 45-117 [facility] Work Phone: ALT [Catalytic activity/Vol] 34 U/L 16-61 [facility] Work Phone: [phone] CO2 [Moles/Vol] 29.0 mmol/L 21.0-32.0 [facility] Work Phone: [phone] Free T4 [Mass/Vol] 1.06 ng/dL 0.76-1.46 [facility] Work Phone: [phone] Globulin (S) [Mass/Vol] 3.2 g/dL 2.2-4.2 [facility] Work Phone: Urea nitrogen/Creatinine [Mass ratio] 22.3 mg/mg 10-20 [facility] Work Phone: Laboratory - Hematology and Cell countson 10-30-2021 Erythrocyte distribution width (RBC) [Entitic vol] 41.6 fL 35.1-43.9 [facility] Work Phone: Erythrocyte distribution width (RBC) [Ratio] 11.8 % 11.6-14.6 [facility] Work Phone: Immature granulocytes/100 WBC (Bld) 0.200 % 0.0-0.9 [facility] Work Phone: Comment on above: IG% - Immature Granu locytes (promyelocytes, myelocytes and metamyelocytes) > 1% indicates that a LEFT SHIFT is Present. MCH (RBC) [Entitic mass] 32.4 pg 27.0-32.0 [facility] Work Phone: Nucleated RBC/100 WBC (Bld) [Ratio] 0 % 0-5 [facility] Work Phone: MCHC Auto (RBC) [Mass/Vol]on 10-30-2021 MCHC (RBC) [Mass/Vol] 33.6 g/dL 32-36 [facility] Work Phone: No Panel Informationon 10-30 Estimated GFR (MDRD) Amer 91 mL/min >60 [facility] Work Phone: Comment on above: GFR Calc Estimated GFR (MDRD) Non-Af Amer 76 mL/min >60 [facility] Work Phone: Comment on above: Non- GFR Calc Free Triiodothyronine (T3) pg/dL 2.0 pg/mL 2.18-3.98 [facility] Work Phone: Thyroid Stimulating Hormone (TSH) 2.51 uIU/mL 0.358-3.74 [facility] Work Phone: Platelets bldon 10-30-2021 Platelets (Bld) [#/Vol] 144 10*3/uL 150-450 [facility] Work Phone: [phone] Serum or plasma albumin martell urement (mass/volume)on 10-30-2021 Albumin [Mass/Vol] 3.6 g/dL 3.2-5.0 [facility] Work Phone: [phone] Serum or plasma albumin/glob ulin mass ratioon 10-30-2021 Albumin/Globulin [Mass ratio] 1.1 {ratio} 0.9-2.4 [facility] Work Phone: [phone] Serum or plasma calcium martell urement (mass/volume)on 10-30-2021 Calcium [Mass/Vol] 8.6 mg/dL 8.5-10.1 [facility] Work Phone: Serum or plasma creatinine m easurement (mass/volume)on 10-30-2021 Creatinine [Mass/Vol] 1.03 mg/dL 0.70-1.30 [facility] Work Phone: Comment on above: The validity of the calculated GFR & GFRAA in patients over 70 years has not been determined. Clinical correlation is essential. Serum or plasma urea nitroge n measurement (mass/volume)on 10-30-2021 Urea nitrogen [Mass/Vol] 23 mg/dL 7-18 [facility] Work Phone: Thin prep Papanicolaou smear with manual screeningon 10-30-2021 Thin prep Papanicolaou smear with manual screening 29 U/L 15-37 [facility] Work Phone: Thin prep Papanicolaou smear with manual screening 7 5-15 [facility] Work Phone: Laboratory - Chemistry and C hemistry - challengeon 07-18-2021 Free T4 [Mass/Vol] 1.33 ng/dL 0.76-1.46 [facility] Work Phone: No Panel Informationon 07-18 Free Triiodothyronine (T3) pg/dL 2.5 pg/mL 2.18-3.98 [facility] Work Phone: Thyroid Stimulating Hormone (TSH) 0.23 uIU/mL 0.358-3.74 [facility] Work Phone: PROGRESSon 01-20-2020 PROGRESS HNO ID: [id number] Author: Hansel Ramsey Jr. Service: ? Author Type: Physician Type: Progress Notes Filed: 01/20/2020 2:08 PM Note Text: ESTABLISHED PATIENT VISIT (Virtual Visit with Video) With the current coronavirus outbreak, we want to minimize the risk of exposing patients to this illness. I have reviewed this patient's chart and, per patient's request for an opportunity to be seen without having to present to the office, feel appropriate that this appointment be made a virtual visit. For this virtual visit, the patient has been identified by name and (MRN and photo identification as well if available). Those taking part in visit: patient and physician via [employer]. Consent for this visit received from patient. HISTORY OF PRESENT ILLNESS: Trevor Coleman is a 69 year old male, with a PMH significant for and per last office note of 01/23/19: 1. Orthostatic hypotension - ICD9: 458.0, ICD10: I95.1 (primary diagnosis) Stable. Rarely symptomatic. No changes in meds today. Encouraged good po intake of water as well as consideration of compression stockings if symptoms worsen. ? 2. History of stroke - ICD9: V12.54, ICD10: Z86.73 Asx. No new focal deficits. Continue Plavix. Bp goal <140/90. Glucose goal <140. Recommend lipid panel be checked next PCP labs to determine if adjustment in statin necessary. ? 3. Obstructive sleep apnea syndrome - ICD9: 327.23, ICD10: G47.33 Asx. He is not wanting a repeat study and given weight loss, degree of ASYA should be improving (unless age influencing symptoms). Encouraged patient to sleep on his side. in Mar 2019 was sick - thinks he had pneumonia - and was sick for a couple months if not longer. [facility] had COVID 19 antibody test at end of July 2019 and reports it was negative. since then had 3-4 episodes of lightheadedness, where it was bad enough that he had to sit down. went to the ER by EMS on 11/26/2019 -- was out in Room and was helping hang bike in [place], and suddenly came in house and became to shudder. No AMS. [facility] BP was 260/190 at that time with shuddering lasting for 30 minutes. Cardiac workup in ER was reportedly OK. He questions if it was a panic attack. No associated focal neuro deficits. BP decreased in ER to 160/90 and then normalized at home after that. On Dec 17, 2019 was working out in Room and hanging a blind over a window and had a clammy sensation and thus went and checked BP and was 78/56. After short duration BP went back to normal range and remained asx. Pt is wearing loop recorder and had not indications that it showed arrhythmia. States each time he had symptoms was working with arms above head. No new focal neurologic deficits. States no ASYA symptoms and always sleeps on his side. No back issues. REVIEW OF SYSTEMS GENERAL:No weight loss, malaise [...] disturbance, mood disorder and recent psychosocial stressors. HEMATOLOGIC/LYMPHATIC /IMMUNOLOGIC:Negative for prolonged bleeding, bruising easily or swollen [...] Heart Father BYPASS SOCIAL HISTORY Social History Tobacco Use - Smoking status: Never Smoker - Smokeless tobacco: Never Used Substance Use Topics - Alcohol use: Yes Comment: rare - Drug use: No PHYSICAL EXAMINATION Blood pressure 130/89, pulse 64, weight 228 lb (103.4 kg). GENERAL EXAM: General appearance: NAD, pleasant. HEENT: NC/AT, nasal congestion absent, no oral lesions, membranes moist. NECK: ROM nml. Lungs: No audible cough, wheeze and sob. NEUROLOGICAL EXAM: General: Awake, alert, oriented x3 (person,place,time), speech fluent, no dysarthria; comprehension, naming, repetition intact. Fund of knowledge grossly normal by MOCA. CN: EOMI and without nystagmus, VFF to confrontation, facial sensation and strength are normal and symmetric, hearing is intact to finger rub bilaterally, palate and tongue movements are intact and symmetric. SCM and trapezius strength normal. ( helps with exam) Motor: NAPIER equal and symmetric. Reflexes: Cannot obtain by video. Coordination: FNF, MATY, HTS intact. Sensation: Cannot obtain by video. Gait: Cannot obtain by video. Assessment and Plan: ASSESSMENT/PLAN: 1. Orthostatic hypotension - ICD9: 458.0, ICD10: I95.1 (primary diagnosis) Patient with 2 episodes of lightheadedness as above, of which etiologies unknown. States no indication from loop recorded for arrhythmia, yet never followed up with cardiology. During one of these episodes patient was actually quite hypertensive and thus patient thought possibly a panic attack. Difficult to differentiate by video without being able to perform orthostatics. I agree that if episodes only happen with arms being raised above head need to consider dx such as subclavian steal syndrome and TOS (but patient with no arm symptoms otherwise). Also still may have autonomic dysfunction and patient never underwent tilt table test in past. Patient wants no workup at this time and expressed to him risk of holding on workup - he expressed an understanding of these risks. Will continue to monitor. Advised to check BP throughout the week and if possible in different positions. Advised to try and perform activities without lifting arms above head. Advised patient to follow up with cardiology regarding loop recorder interrogation. Recommend follow up with PCP regarding BP meds (note no longer on Norvasc). 2. History of stroke - ICD9: V12.54, ICD10: Z86.73 No new focal neuro symptoms even during episodes of lightheadedness - NO visual change, NO vertigo, NO speech change, NO facial weakness... Will continue on Plavix 75g daily and statin therapy.BP goal <140/90. Glucose goal <140. 3. Obstructive sleep apnea syndrome - ICD9: 327.23, ICD10: G47.33 Asx and pt not wanting further workup. Encouraged to sleep in the off-supine position. Encouraged weight loss. Hansel Ramsey MD I spent 26 minutes in the visit, with more than 50% of the total [id number] time of the visit in counseling / coordination of care. Normal [facility] CNOVon 01-23-2019 CNOV Office Visit (NEURBA ) TREVOR COLEMAN ([id number]) 1950 M Date Time Provider Department 01/23/19 11:00 AM HANSEL RAMSEY JR During your visit today, we recorded the following information about you: Pulse Blood pressure Weight Height 59/minute 138/74 97.5 kg 1.829 m Hansel Ramsey MD 01/23/2019 11:32 AM Signed ESTABLISHED PATIENT VISIT HISTORY OF PRESENT ILLNESS: Trevor Coleman is a 68 year old male, with a PMH significant for and per my last note on 06/2018: 1. Orthostatic hypotension - ICD9: 458.0, ICD10: I95.1 (primary diagnosis) Improved since off Norvasc. Non-orthostatic today in office. Encouraged water intake, especially with summer coming and risk of dehydration. ? 2. History of stroke - ICD9: V12.54, ICD10: Z86.73 Discussed with patient benefits and risks of dual antiplt therapy vs single therapy. After discussion, decision made with patient's understanding and agreeing, to stop dual antiplt therapy and place on Plavix 75mg daily (currently on ASA and Plavix). He is to continue statin therapy with history of elevated LDL. Also goal BP <140/90 and goal glucose <140. ? 3. Obstructive sleep apnea (adult) (pediatric) - ICD9: 327.23, ICD10: G47.33 No s/s of ASYA. Again, encouraged patient to sleep in the off-supine position based on prior study with patient not wanting additional studies at this time. Overall reports doing well. He is now on Losartan 50mg daily for HTN. He states that lightheadedness is better than it was - maybe couple times per month feels lightheaded but resolves in seconds. He reports no new focal deficits. No weakness. No numbness. No headaches. No vision or speech changes. No vertigo. He is following with ophthalmology due to an EOM weakness that is chronic and for which he had prior surgeries. Still sleeping on his side. No reported snoring. Down 9 pounds since last visit. No new meds. No new complaints. REVIEW OF SYSTEMS GENERAL:No weight loss, malaise [...] above. SKIN:Negative for lesions, rash, and itching. HEMATOLOGIC/LYMPHATIC /IMMUNOLOGIC:Negative for prolonged bleeding, bruising easily or swollen [...] IA (no units) Date Value 08/11/2015 Negative Outside labs with Dr. Del Valle. Pt reports thyroid levels bouncing around a bit and meds adjusted. Uncertain if recent Cholesterol level and needs checked. MEDICATIONS: clopidogrel (PLAVIX) 75 mg tablet Take [...] Heart Father BYPASS SOCIAL HISTORY Social History Tobacco Use - Smoking status: Never Smoker - Smokeless tobacco: Never Used Substance Use Topics - Alcohol use: Yes Comment: rare - Drug use: No PHYSICAL EXAMINATION Blood pressure 138/74, pulse (!) 59, height 6' (1.829 m), weight 215 lb (97.5 kg), SpO2 97 %. GENERAL EXAM: General appearance: NAD, pleasant. HEENT: NC/AT, nasal congestion absent, no oral lesions, membranes moist. NECK: No masses, supple. Lungs: CTA bilaterally. CV: RRR nl S1, S2. No carotid bruits. Extr: No cyanosis, clubbing or edema. No evidence of fasciculations. Extremity pulses palpable and normal. Skin: Cool to touch. No rash. NEUROLOGICAL EXAM: General: Awake, alert, oriented x3 (person,place,time), speech fluent, no dysarthria; comprehension, naming, repetition intact. Short and terminal system operator memory intact. Fund of knowledge grossly normal by MOCA. CN: PERRL, fundi with o evidence of papilledema, EOMI and without nystagmus, VFF to confrontation, facial sensation and strength are normal and symmetric, hearing is intact to finger rub bilaterally, palate and tongue movements are intact and symmetric. SCM and trapezius strength normal. Motor: Normal tone, bulk and strength (5/5) bilaterally (throughout extremities x4). Coordination: FNF, MATY, HTS intact. No tremors. Sensation: Light touch and pin intact throughout. No evidence of neglect. Gait: Narrow based and stable with normal stride and arm swing. Romberg normal. Assessment and Plan: ASSESSMENT/PLAN: 1. Orthostatic hypotension - ICD9: 458.0, ICD10: I95.1 (primary diagnosis) Stable. Rarely symptomatic. No changes in meds today. Encouraged good po intake of water as well as consideration of compression stockings if symptoms worsen. 2. History of stroke - ICD9: V12.54, ICD10: Z86.73 Asx. No new focal deficits. Continue Plavix. Bp goal <140/90. Glucose goal <140. Recommend lipid panel be checked next PCP labs to determine if adjustment in statin necessary. 3. Obstructive sleep apnea syndrome - ICD9: 327.23, ICD10: G47.33 Asx. He is not wanting a repeat study and given weight loss, degree of ASYA should be improving (unless age influencing symptoms). Encouraged patient to sleep on his side. Pt requests follow up and thus will see in 1 year as he is overall doing well. Hansel Ramsey MD I spent 25 minutes in the visit, with more than 50% of the total [id number] time of the visit in counseling / coordination of care. Referring Provider: HANSEL RAMSEY JR [[id number]] Allergies As of Date: 01/23/2019 Noted Allergy Reaction ADHESIVE 07/10/2016 2 - Rash SULFA (SULFONAMIDE ANTIBIOTICS) 02/08/2005 TAPAZOLE (METHIMAZOLE) 01/25/2010 2 - Rash Date Reviewed: 01/23/2019 Reviewed by: Bharti (Counts Include [facility]) Cristobal - Fully Assessed Reason for Visit: Established Patient Follow-Up [[id number]] Primary Visit Diagnosis:Orthostatic hypotension [I95.1] Other Visit Diagnoses:History of stroke [Z86.73] Obstructive sleep apnea syndrome [G47.33] Prescriptions as of 01/23/2019 Sig: CLOPIDOGREL 75 MG TABLET Take 75 mg by mouth once lokesh* ATORVASTATIN 40 MG TABLET Take 1 tablet by mouth once d* LEVOTHYROXINE 175 MCG TABLET Take 1 tablet by mouth once d* Patient taking differently: Take 188 mcg by mouth once da* TRIAMCINOLONE ACETONIDE 0.1 %* Apply to affected area twice* HYDROCORTISONE 2.5 % TOPICAL * Apply to affected area twice* CHOLECALCIFEROL (VITAMIN D3) * Take 1 tablet by mouth once d* ASPIRIN 81 MG TABLET,DELAYED * Take 81 mg by mouth once lokesh* Problem List As Of Date 01/23/2019 Noted Resolved Hemorrhoid [K64.9] 01/13/2009 Postablative Hypothyroidism [E89.0] 01/23/2009 More... Low Back Pain [M54.5] 01/23/2009 Scaly Patch Rash [R21] 01/23/2009 Impaired Fasting Glucose [R73.01] 01/23/2009 Hyperthyroidism [E05.90] 03/31/2009 11/09/2009 Hypothyroidism [E03.9] 07/19/2009 11/09/2009 Psoriasis [L40.9] 08/15/2015 Essential hypertension [I10] 07/10/2016 Cerebrovascular accident (CVA) (HCC) [I63.9] 11/01/2017 Obstructive sleep apnea (adult) (pediatric) [G4*11/01/2017 Spinal stenosis, lumbar region, without neuroge*11/01/2017 Lumbar facet arthropathy [M47.816] 11/12/2017 Orthostatic hypotension [I95.1] 12/02/2017 Malaise and fatigue [R53.81, R53.83] 12/02/2017 History of stroke [Z86.73] 06/23/2018 Disposition: Return in about 1 year (around 01/24/2020). Follow-up and Disposition History Recorded Encounter Status:Closed by HANSEL RAMSEY on 01/23/19 [facility] PROGRESSon 01-23-2019 PROGRESS HNO ID: [id number] Author: Hansel Ramsey Jr. Service: ? Author Type: Physician Type: Progress Notes Filed: 01/23/2019 11:32 AM Note Text: ESTABLISHED PATIENT VISIT HISTORY OF PRESENT ILLNESS: Trevor Coleman is a 68 year old male, with a PMH significant for and per my last note on 06/2018: 1. Orthostatic hypotension - ICD9: 458.0, ICD10: I95.1 (primary diagnosis) Improved since off Norvasc. Non-orthostatic today in office. Encouraged water intake, especially with summer coming and risk of dehydration. ? 2. History of stroke - ICD9: V12.54, ICD10: Z86.73 Discussed with patient benefits and risks of dual antiplt therapy vs single therapy. After discussion, decision made with patient's understanding and agreeing, to stop dual antiplt therapy and place on Plavix 75mg daily (currently on ASA and Plavix). He is to continue statin therapy with history of elevated LDL. Also goal BP <140/90 and goal glucose <140. ? 3. Obstructive sleep apnea (adult) (pediatric) - ICD9: 327.23, ICD10: G47.33 No s/s of ASYA. Again, encouraged patient to sleep in the off-supine position based on prior study with patient not wanting additional studies at this time. Overall reports doing well. He is now on Losartan 50mg daily for HTN. He states that lightheadedness is better than it was - maybe couple times per month feels lightheaded but resolves in seconds. He reports no new focal deficits. No weakness. No numbness. No headaches. No vision or speech changes. No vertigo. He is following with ophthalmology due to an EOM weakness that is chronic and for which he had prior surgeries. Still sleeping on his side. No reported snoring. Down 9 pounds since last visit. No new meds. No new complaints. REVIEW OF SYSTEMS GENERAL:No weight loss, malaise [...] above. SKIN:Negative for lesions, rash, and itching. HEMATOLOGIC/LYMPHATIC /IMMUNOLOGIC:Negative for prolonged bleeding, bruising easily or swollen [...] IA (no units) Date Value 08/11/2015 Negative Outside labs with Dr. Del Valle. Pt reports thyroid levels bouncing around a bit and meds adjusted. Uncertain if recent Cholesterol level and needs checked. MEDICATIONS: clopidogrel (PLAVIX) 75 mg tablet Take [...] Heart Father BYPASS SOCIAL HISTORY Social History Tobacco Use - Smoking status: Never Smoker - Smokeless tobacco: Never Used Substance Use Topics - Alcohol use: Yes Comment: rare - Drug use: No PHYSICAL EXAMINATION Blood pressure 138/74, pulse (!) 59, height 6' (1.829 m), weight 215 lb (97.5 kg), SpO2 97 %. GENERAL EXAM: General appearance: NAD, pleasant. HEENT: NC/AT, nasal congestion absent, no oral lesions, membranes moist. NECK: No masses, supple. Lungs: CTA bilaterally. CV: RRR nl S1, S2. No carotid bruits. Extr: No cyanosis, clubbing or edema. No evidence of fasciculations. Extremity pulses palpable and normal. Skin: Cool to touch. No rash. NEUROLOGICAL EXAM: General: Awake, alert, oriented x3 (person,place,time), speech fluent, no dysarthria; comprehension, naming, repetition intact. Short and terminal system operator memory intact. Fund of knowledge grossly normal by MOCA. CN: PERRL, fundi with o evidence of papilledema, EOMI and without nystagmus, VFF to confrontation, facial sensation and strength are normal and symmetric, hearing is intact to finger rub bilaterally, palate and tongue movements are intact and symmetric. SCM and trapezius strength normal. Motor: Normal tone, bulk and strength (5/5) bilaterally (throughout extremities x4). Coordination: FNF, MATY, HTS intact. No tremors. Sensation: Light touch and pin intact throughout. No evidence of neglect. Gait: Narrow based and stable with normal stride and arm swing. Romberg normal. Assessment and Plan: ASSESSMENT/PLAN: 1. Orthostatic hypotension - ICD9: 458.0, ICD10: I95.1 (primary diagnosis) Stable. Rarely symptomatic. No changes in meds today. Encouraged good po intake of water as well as consideration of compression stockings if symptoms worsen. 2. History of stroke - ICD9: V12.54, ICD10: Z86.73 Asx. No new focal deficits. Continue Plavix. Bp goal <140/90. Glucose goal <140. Recommend lipid panel be checked next PCP labs to determine if adjustment in statin necessary. 3. Obstructive sleep apnea syndrome - ICD9: 327.23, ICD10: G47.33 Asx. He is not wanting a repeat study and given weight loss, degree of ASYA should be improving (unless age influencing symptoms). Encouraged patient to sleep on his side. Pt requests follow up and thus will see in 1 year as he is overall doing well. Hansel Ramsey MD I spent 25 minutes in the visit, with more than 50% of the total [id number]-vy-[id number] time of the visit in counseling / coordination of care. Normal [facility] Vital Signs Date Time Vital Sign Value Performing Clinician Facility 08-04-2024 08:09-0400 Body height 182.[address] Liseth Del Valle DO Work Phone: [facility] 08-04-2024 08:09-0400 Body mass index (BMI) [Ratio] 29.5 kg/m2 Dr. Liseth Del Valle DO Work Phone: [facility] 08-04-2024 08:09-0400 Body weight 98.[address] Liseth Del Valle DO Work Phone: [facility] 08-04-2024 08:09-0400 Diastolic blood pressure 70 mm[Hg] Dr. Liseth Del Valle DO Work Phone: [facility] 08-04-2024 08:09-0400 Heart rate 61 /min Dr. Liseth Del Valle DO Work Phone: [facility] 08-04-2024 08:09-0400 Respiratory rate 16 /min Dr. Liseth Del Valle DO Work Phone: [facility] 08-04-2024 08:09-0400 Systolic blood pressure 128 mm[Hg] Dr. Liseth Del Valle DO Work Phone: [facility] 07-16-2024 13:54-0400 Body height 182.[address] Liesth Del Valle DO Work Phone: [facility] 07-16-2024 13:54-0400 Body mass index (BMI) [Ratio] 29.4 kg/m2 Dr. Liseth Del Valle DO Work Phone: [facility] 07-16-2024 13:54-0400 Body weight 98.[address] Liseth Del Valle DO Work Phone: [facility] 07-16-2024 13:54-0400 Diastolic blood pressure 82 mm[Hg] Dr. Liseth Del Valle DO Work Phone: [facility] 07-16-2024 13:54-0400 Heart rate 59 /min Dr. Liseth Del Valle DO Work Phone: [facility] 07-16-2024 13:54-0400 Respiratory rate 16 /min Dr. Liseth Del Valle DO Work Phone: [facility] 07-16-2024 13:54-0400 Systolic blood pressure 136 mm[Hg] Dr. Liseth Del Valle DO Work Phone: [facility] 07-13-2024 22:25-0400 Body temperature 97.9 [degF] Dr. Liseth Del Valle DO Work Phone: [facility] 07-13-2024 22:25-0400 Diastolic blood pressure 77 mm[Hg] Dr. Liseth Del Valle DO Work Phone: [facility] 07-13-2024 22:25-0400 Heart rate 60 /min Dr. Liseth Del Valle DO Work Phone: [facility] 07-13-2024 22:25-0400 Respiratory rate 18 /min Dr. Liseth Del Valle DO Work Phone: [facility] 07-13-2024 22:25-0400 SaO2% (BldA) [Mass fraction] 94 % Dr. Liseth Del Valle DO Work Phone: [facility] 07-13-2024 22:25-0400 Systolic blood pressure 123 mm[Hg] Dr. Liseth Del Valle DO Work Phone: [facility] 07-13-2024 19:16-0400 Body height 182.[address] Liseth Del Valle DO Work Phone: [facility] 07-13-2024 19:16-0400 Body mass index (BMI) [Ratio] 29.8 kg/m2 Dr. Liseth Del Valle DO Work Phone: [facility] 07-13-2024 19:16-0400 Body weight 99.[address] Liseth Del Valle DO Work Phone: [facility] 07-13-2024 15:13-0400 Body mass index (BMI) [Ratio] 29.62 kg/m2 Hansel Ramsey Jr., MD Work Phone: [facility] 07-13-2024 15:13-0400 Body weight 99.07 kg Hansel Ramsey Jr., MD Work Phone: [facility] 07-13-2024 15:13-0400 Diastolic blood pressure 78 mm[Hg] Hansel Ramsey Jr., MD Work Phone: [facility] 07-13-2024 15:13-0400 Heart rate 64 /min Hansel Ramsey Jr., MD Work Phone: [facility] 07-13-2024 15:13-0400 Respiratory rate 18 /min Hansel Ramsey Jr., MD Work Phone: [facility] 07-13-2024 15:13-0400 SaO2% (BldA) [Mass fraction] 99 % Hansel Ramsey Jr., MD Work Phone: [facility] 07-13-2024 15:13-0400 Systolic blood pressure 136 mm[Hg] Hansel Ramsey Jr., MD Work Phone: [facility] 06-18-2024 14:09-0400 Body mass index (BMI) [Ratio] 30.1 kg/m2 Dr. Liseth Del Valle DO Work Phone: [facility] 06-18-2024 14:09-0400 Body weight 100.[address] Liseth Del Valle DO Work Phone: [facility] 04-27-2024 07:43-0400 Body mass index (BMI) [Ratio] 30.9 kg/m2 Dr. Liseth Del Valle DO Work Phone: [facility] 04-27-2024 07:43-0400 Body weight 103.[address] Liseth Del Valle DO Work Phone: [facility] 04-27-2024 07:43-0400 Diastolic blood pressure 79 mm[Hg] Dr. Liseth Del Valle DO Work Phone: [facility] 04-27-2024 07:43-0400 Heart rate 66 /min Dr. Liseth Del Valle DO Work Phone: [facility] 04-27-2024 07:43-0400 Respiratory rate 18 /min Dr. Liseth Del Valle DO Work Phone: [facility] 04-27-2024 07:43-0400 SaO2% (BldA) [Mass fraction] 98 % Dr. Liseth Del Valle DO Work Phone: [facility] 04-27-2024 07:43-0400 Systolic blood pressure 127 mm[Hg] Dr. Liseth Del Valle DO Work Phone: [facility] 07-12-2023 11:24-0400 Body mass index (BMI) [Ratio] 30.79 kg/m2 Hansel Ramsey Jr., MD Work Phone: [facility] 07-12-2023 11:24-0400 Body weight 102.97 kg Hansel Ramsey Jr., MD Work Phone: [facility] 07-12-2023 11:24-0400 Diastolic blood pressure 78 mm[Hg] Hansel Ramsey Jr., MD Work Phone: [facility] 07-12-2023 11:24-0400 Heart rate 71 /min Hansel Ramsey Jr., MD Work Phone: [facility] 07-12-2023 11:24-0400 Respiratory rate 16 /min Hansel Ramsey Jr., MD Work Phone: [facility] 07-12-2023 11:24-0400 SaO2% (BldA) [Mass fraction] 97 % Hansel Ramsey Jr., MD Work Phone: [facility] 07-12-2023 11:24-0400 Systolic blood pressure 126 mm[Hg] Hansel Ramsey Jr., MD Work Phone: [facility] 05-02-2023 09:46-0400 Diastolic blood pressure 70 mm[Hg] Dr. Liseth Del Valle Work Phone: [facility] 05-02-2023 09:46-0400 Systolic blood pressure 120 mm[Hg] Dr. Liseth Del Valle Work Phone: [facility] 05-02-2023 09:23-0400 Body height 182.[address] Liseth Del Valle Work Phone: [facility] 05-02-2023 09:23-0400 Body mass index (BMI) [Ratio] 31 kg/m2 Dr. Liseth Del Valle Work Phone: [facility] 05-02-2023 09:23-0400 Body weight 103.[address] Liseth Del Valle Work Phone: [facility] 05-02-2023 09:23-0400 Heart rate 65 /min Dr. Liseth Del Valle Work Phone: [facility] 05-02-2023 09:23-0400 Respiratory rate 18 /min Dr. Liseth Del Valle Work Phone: [facility] 05-02-2023 09:23-0400 SaO2% (BldA) [Mass fraction] 99 % Dr. Liseth Del Valle Work Phone: [facility] 08-20-2022 13:51-0400 Body temperature 97.5 [degF] Hansel Ramsey Jr., MD Work Phone: [facility] 08-20-2022 13:51-0400 Body weight 100.06 kg Hansel Ramsey Jr., MD Work Phone: [facility] 08-20-2022 13:51-0400 Diastolic blood pressure 83 mm[Hg] Hansel Ramsey Jr., MD Work Phone: [facility] 08-20-2022 13:51-0400 Heart rate 57 /min Hansel Ramsey Jr., MD Work Phone: [facility] 08-20-2022 13:51-0400 Respiratory rate 16 /min Hansel Ramsey Jr., MD Work Phone: [facility] 08-20-2022 13:51-0400 SaO2% (BldA) [Mass fraction] 98 % Hansel Ramsey Jr., MD Work Phone: [facility] 08-20-2022 13:51-0400 Systolic blood pressure 146 mm[Hg] Hansel Ramsey Jr., MD Work Phone: [facility] 02-09-2022 08:56-0500 Body temperature 96.49 [degF] Hansel Ramsey Jr., MD Work Phone: [facility] 02-09-2022 08:56-0500 Body weight 103.6 kg Hansel Ramsey Jr., MD Work Phone: [facility] 02-09-2022 08:56-0500 Diastolic blood pressure 81 mm[Hg] Hansel Ramsey Jr., MD Work Phone: [facility] 02-09-2022 08:56-0500 Heart rate 71 /min Hansel Ramsey Jr., MD Work Phone: [facility] 02-09-2022 08:56-0500 Respiratory rate 16 /min Hansel Ramsey Jr., MD Work Phone: [facility] 02-09-2022 08:56-0500 SaO2% (BldA) [Mass fraction] 98 % Hansel Ramsey Jr., MD Work Phone: [facility] 02-09-2022 08:56-0500 Systolic blood pressure 125 mm[Hg] Hansel Ramsey Jr., MD Work Phone: [facility] 01-15-2022 13:21-0500 Body height 182.[address] Liseth Del Valle Work Phone: [facility] Work Phone: 01-15-2022 13:21-0500 Body mass index (BMI) [Ratio] 30.6 kg/m2 Dr. Liseth Del Valle Work Phone: [facility] Work Phone: 01-15-2022 13:21-0500 Body weight 102.[address] Liseth Del Valle Work Phone: [facility] Work Phone: 01-15-2022 13:21-0500 Diastolic blood pressure 86 mm[Hg] Dr. Liseth Del Valle Work Phone: [facility] Work Phone: 01-15-2022 13:21-0500 Respiratory rate 18 /min Dr. Liseth Del Valle Work Phone: [facility] Work Phone: 01-15-2022 13:21-0500 Systolic blood pressure 126 mm[Hg] Dr. Liseth Del Valle Work Phone: [facility] Work Phone: 12-21-2021 13:38-0500 Body mass index (BMI) [Ratio] 30.5 kg/m2 Dr. Liseth Del Valle Work Phone: [facility] Work Phone: 12-21-2021 13:38-0500 Body weight 102.[address] Liseth Del Valle Work Phone: [facility] Work Phone: 12-21-2021 13:38-0500 Diastolic blood pressure 89 mm[Hg] Dr. Liseth Del Valle Work Phone: [facility] Work Phone: 12-21-2021 13:38-0500 Heart rate 62 /min Dr. Liseth Del Valle Work Phone: [facility] Work Phone: 12-21-2021 13:38-0500 Respiratory rate 16 /min Dr. Liseth Del Valle Work Phone: [facility] Work Phone: 12-21-2021 13:38-0500 SaO2% (BldA) [Mass fraction] 97 % Dr. Liseth Del Valle Work Phone: [facility] Work Phone: 12-21-2021 13:38-0500 Systolic blood pressure 139 mm[Hg] Dr. Liseth Del Valle Work Phone: [facility] Work Phone: 08-01-2021 15:51-0400 Body height 182.[address] Liseth Del Valle Work Phone: [facility] Work Phone: 08-01-2021 15:51-0400 Body mass index (BMI) [Ratio] 30.7 kg/m2 Dr. Liseth Del Valle Work Phone: [facility] Work Phone: 08-01-2021 15:51-0400 Body weight 102.[address] Liseth Del Valle Work Phone: [facility] Work Phone: 08-01-2021 15:51-0400 Diastolic blood pressure 82 mm[Hg] Dr. Liseth Del Valle Work Phone: [facility] Work Phone: 08-01-2021 15:51-0400 Heart rate 60 /min Dr. Liseth Del Valle Work Phone: [facility] Work Phone: 08-01-2021 15:51-0400 Respiratory rate 18 /min Dr. Liseth Del Valle Work Phone: [facility] Work Phone: 08-01-2021 15:51-0400 SaO2% (BldA) [Mass fraction] 97 % Dr. Liseth Del Valle Work Phone: [facility] Work Phone: 08-01-2021 15:51-0400 Systolic blood pressure 134 mm[Hg] Dr. Liseth Del Valle Work Phone: [facility] Work Phone: 05-08-2021 15:13-0400 Body temperature 98.2 [degF] Hansel Ramsey Jr., MD Work Phone: [facility] 05-08-2021 15:13-0400 Body weight 101.61 kg Hansel Ramsey Jr., MD Work Phone: [facility] 05-08-2021 15:13-0400 Diastolic blood pressure 78 mm[Hg] Hansel Ramsey Jr., MD Work Phone: [facility] 05-08-2021 15:13-0400 Heart rate 72 /min Hansel Ramsey Jr., MD Work Phone: [facility] 05-08-2021 15:13-0400 Respiratory rate 18 /min Hansel Ramsey Jr., MD Work Phone: [facility] 05-08-2021 15:13-0400 SaO2% (BldA) [Mass fraction] 99 % Hansel Ramsey Jr., MD Work Phone: [facility] 05-08-2021 15:13-0400 Systolic blood pressure 132 mm[Hg] Hansel Ramsey Jr., MD Work Phone: [facility] Encounters Encounter Date Encounter Type Care Provider Facility Start: 09-03-2024 ambulatory Akira H Roof Facility:[facility] Start: 08-28-[address] [facility] Facility:[facility] Start: 08-24-2024 ambulatory Alberto Friend Facility :[facility] Start: 08-19-2024 End: 08-19-2024 ambulatory SELF Facility:[facility] Start: 08-19-2024 End: 08-19-2024 Subsequent hospital visit by physician Card Injection Molecular Imaging Comment on above: Chest pain, unspecif ied type [R07.9] Start: 08-17-2024 ambulatory LISETH A IVON Facility:[facility] Start: 08-17-2024 End: 08-17-2024 Subsequent hospital visit by physician Ct Prep [facility] Start: 08-13-2024 End: 08-17-2024 Orders Only Fernanda Warren MD Work Phone: Cardiology Comment on above: Chest pain, unspecif ied type (Primary Dx) Start: 08-04-2024 End: 08-04-2024 Patient encounter procedure Akira MOSLEY -[facility] Work Phone: Start: 08-04-2024 End: 08-04-[address] Liseth Del Valle DO Work Phone: [facility] Work Phone: Start: 07-29-2024 End: 07-29-[address] Liseth Del Valle DO Work Phone: [facility] Work Phone: Start: 07-29-2024 End: 07-29-[address] Liseth Del Valle DO -[facility] [place] Work Phone: Start: 07-29-2024 End: 07-29-2024 ambulatory Liseth Del Valle Facility:[facility] Start: 07-27-2024 End: 07-27-2024 ambulatory LISETH DEL VALLE Facility:[facility] Start: 07-24-2024 End: 07-24-2024 Transcribe Orders Hvi Transcribe Provider Cardiology Comment on above: Ventricular prematur e beats (Primary Dx) Start: 07-23-2024 End: 07-23-[address] Liseth Del Valle DO Work Phone: [facility] Work Phone: Start: 07-23-2024 End: 07-23-2024 Patient encounter procedure Akira MOSLEY -Pulmonary Services/Neurology Work Phone: Start: 07-22-2024 End: 07-24-2024 ambulatory Hansel Ramsey MD Work Phone: Neurology Comment on above: Echocardiogram Start: 07-20-2024 End: 07-20-2024 Follow-up encounter Saige Perez LPN Neurology Start: 07-16-2024 End: 07-16-2024 Patient encounter procedure Akira MOSLEY -[facility] Work Phone: Start: 07-16-2024 End: 07-16-[address] Liseth Del Valle DO Work Phone: [facility] Work Phone: Start: 07-13-2024 End: 07-13-2024 Emergency department patient visit Dr. Liseth Del Valle DO Work Phone: -Emergency Department Work Phone: Start: 07-13-2024 End: 07-13-2024 Patient encounter procedure Hansel Ramsey MD Work Phone: Neurology Comment on above: Lightheaded (Primary Dx); Obstructive sleep apnea syndrome; History of stroke; Irregular heart rhythm Start: 07-13-2024 End: 07-13-2024 ambulatory HANSEL RAMSEY JR Facility:[facility] Start: 06-18-2024 End: 06-18-[address] Avery Hu MD -[facility] Work Phone: Start: 06-18-2024 End: 06-18-2024 ambulatory Avery Hu Facility:[facility] Start: 06-16-2024 End: 06-16-2024 Patient encounter procedure Mitali PADILLA [facility] Work Phone: Start: 06-16-2024 End: 06-16-2024 ambulatory Mitali Sheth Facility:[facility] Start: 04-27-2024 End: 04-27-2024 Patient encounter procedure Dennis Palmer [facility] Work Phone: Start: 04-27-2024 End: 04-27-2024 ambulatory Dennis Palmer Facility:[facility] Start: 04-25-2024 End: 04-25-[address] Liseth Del Valle DO Work Phone: [facility] Work Phone: Start: 04-25-2024 End: 04-25-[address] Liseth Del Valle DO -Laboratory Work Phone: Start: 04-25-2024 End: 04-25-2024 ambulatory Liseth Del Valle Facility:[facility] Start: 07-12-2023 End: 07-12-2023 Patient encounter procedure Hansel Ramsey MD Work Phone: Neurology Comment on above: Lightheaded (Primary Dx); Vertigo; Obstructive sleep apnea syndrome; History of stroke Start: 05-02-2023 End: 05-02-[address] Liseth Del Valle Work Phone: [facility] Work Phone: Start: 04-29-2023 End: 04-29-[address] Liseth Del Valle Work Phone: [facility] Work Phone: Start: 04-29-2023 End: 04-29-[address] Liseth Del Valle Work Phone: [facility] Work Phone: Start: 01-17-2023 End: 01-17-2023 ambulatory [facility] Work Phone: Start: 01-17-2023 End: 01-17-2023 Patient encounter procedure [facility] Work Phone: Start: 08-20-2022 End: 08-20-2022 Patient encounter procedure Hansel Ramsey MD Work Phone: Neurology Comment on above: Bradycardia (Primary Dx); Lightheaded; Vertigo; Obstructive sleep apnea syndrome; History of stroke Start: 07-13-2022 End: 07-13-2022 ambulatory [facility] Work Phone: Start: 07-13-2022 End: 07-13-2022 Patient encounter procedure [facility] Start: 02-09-2022 End: 02-09-2022 Patient encounter procedure Hansel Ramsey MD Work Phone: Neurology Comment on above: Vertigo (Primary Dx) ; Orthostatic hypotension; Obstructive sleep apnea syndrome; History of stroke Start: 01-30-2022 End: 01-30-[address] Liseth Del Valle Work Phone: [facility] Work Phone: Start: 01-30-2022 End: 01-30-2022 Patient encounter procedure Dr. Liseth Del Valle Work Phone: [facility] Start: 01-15-2022 End: 01-15-[address] Liseth Del Valle Work Phone: [facility] Start: 12-21-2021 End: 12-21-[address] Liseth Del Valle Work Phone: [facility] Start: 10-30-2021 End: 10-30-[address] Liseth Del Valle Work Phone: [facility] Work Phone: Start: 10-30-2021 End: 10-30-[address] Liseth Del Valle Work Phone: [facility] Start: 08-01-2021 End: 08-01-[address] Liseth Del Valle Work Phone: [facility] Start: 07-18-2021 End: 07-18-[address] Liseth Del Valle Work Phone: [facility] Start: 05-08-2021 End: 05-08-2021 Patient encounter procedure Hansel Ramsey MD Work Phone: Neurology Comment on above: Orthostatic hypotens ion (Primary Dx); History of stroke; Obstructive sleep apnea syndrome Start: 04-28-2021 End: 04-28-[address] Liseth Del Valle Work Phone: [facility] Start: 03-05-2018 Patient encounter procedure [facility] Facility:[facility] Start: 12-02-2017 End: 12-02-2017 Patient encounter procedure [facility] Facility:[facility] Start: 11-01-2017 End: 11-01-2017 Patient encounter procedure [facility] Facility:[facility] Procedures Date Procedure Procedure Detail Performing Clinician Start: 08-19-2024 Myocardial spect multiple studies Fernanda Warren MD Work Phone: Start: 07-29-2024 Prostate specific antigen measurement Dr. Liseth Del Valle DO Work Phone: Comment on above: This test was perfor med using the [employer] tPSA method. Measured values of a patient sample can vary depending on the testing procedure used. PSA values determined on patient samples by different testing procedures cannot be used interchangeably. If there is a change in PSA assays while monitoring therapy, sequential testing should be performed to confirm baseline values. Start: 07-13-2024 X-ray of chest, PA a nd lateral views Dr. Liseth Del Valle DO Work Phone: Start: 07-13-2024 D-dimer assay, quantitative Dr. Liseth Del Valle DO Work Phone: Comment on above: NORMAL D-Dimer level (<0.50) indicates no DVT or PE. Start: 07-13-[address] Liseth Del Valle DO Work Phone: Start: 07-13-2024 Ecg routine ecg w/le ast 12 lds i&r only [facility] Provider Start: 06-18-2024 Plain X-ray of shoulder Dr. Liseth Del Valle DO Work Phone: Start: 01-24-2018 Colonoscopy Hansel alanis Jr., MD Work Phone: Start: 12-13-2017 H/O: surgery History of loo p recorder Dr. Liseth Del Valle Work Phone: Comment on above: NO LONGER WORKING Start: 11-12-2017 Adult depression screening assessment Hansel Ramsey Jr., MD Work Phone: Start: 09-19-2016 Lipid 1996 panel - S shaylee or Plasma Hansel Ramsey Jr., MD Work Phone: Start: 07-10-2016 Marbella alanis Jr., MD Work Phone: Plan of Treatment Date Care Activity Detail Author Start: 10-20-2028 Urine microalbumin profile DTa P,Tdap,Td Vaccine (2 - Td or Tdap) [facility] Start: 2025 RSV Vaccine (1 - 1-d ose 75+ series) RSV Vaccine (1 - 1-dose 75+ series) [facility] Start: 10-12-2024 Influenza vaccination Influenza Vacc ine (#1) [facility] Start: 08-31-2024 End: 08-31-2024 Patient encounter procedure Radiology Comment on above: left shoulder xray Left shoulder pain Start: 08-19-2024 End: 08-19-2024 Patient encounter procedure Molecular Imaging Comment on above: informed nm stress pharm Start: 07-27-2024 End: 07-27-2024 Patient encounter procedure 07/27/2024 8:50 AM EDT Office Visit Cardiology [address] [place] [address] echo-order being faxed over by patient's veterans services specialist in [place] [facility] Comment on above: echo-order being fax ed over by patient's veterans services specialist in [place] Start: 07-13-2024 [facility] Start: 07-13-2024 [facility] Start: 07-13-2024 End: 07-13-2024 Patient encounter procedure 07/13/2024 3:20 PM EDT Office Visit Neurology [address] [place] [address] [place] Jr., [place] [address] [address] Follow up x1 yr Neurology Comment on above: Follow up x1 yr Start: 07-11-2024 BP Controlled (<130/80) BP Controlle d (<130/80) [facility] Start: 05-05-2024 Covid-19 Vaccine ( season) Covid-19 Vaccine () [facility] Start: 02-12-2024 Advance Directive Discussion Advance Directive Discussion [facility] Start: 04-11-2023 Covid-19 Vaccine ( season) Covid-19 Vaccine () [facility] Start: 02-11-2023 Advance Directive Discussion Advance Directive Discussion [facility] Start: 02-11-2023 Behavioral Health Screening Behavioral Health Screening [facility] Start: 10-12-2022 Influenza vaccination INFLUENZA (#1) [facility] Start: 04-13-2022 COVID-19 VACCINE (6 - Moderna series) COVID-19 VACCINE (6 - Moderna series) [facility] Start: 02-11-2022 ADVANCE DIRECTIVE DISCUSSION ADVANCE DIRECTIVE DISCUSSION [facility] Start: 02-11-2022 DEPRESSION ASSESSMENT DEPRESSION ASS ESSMENT [facility] Start: 09-19-2021 Lipid panel Lipid Screening [facility] Start: 09-19-2021 LIPID SCREEN LIPID SCREEN [facility] Start: 05-13-2021 COVID-19 VACCINE (3 - Booster for Moderna series) COVID-19 VACCINE (3 - Booster for Moderna series) [facility] Start: 02-11-2021 ADVANCE DIRECTIVE DISCUSSION ADVANCE DIRECTIVE DISCUSSION [facility] Start: 02-11-2021 DEPRESSION ASSESSMENT DEPRESSION ASS ESSMENT [facility] Start: 10-12-2020 Influenza vaccination INFLUENZA (#1) [facility] Start: 09-20-2019 DIABETES SCREEN DIABETES SCREEN [facility] Start: 09-20-2019 Diabetes Screening Diabetes Screenin g [facility] Start: 01-24-2019 Colonoscopy COLONOSCOPY [facility] Start: 01-24-2019 COLORECTAL CANCER SCREENING COLORECTAL CANCER SCREENING [facility] Start: 11-12-2018 Adult depression scr eening assessment DEPRESSION SCREENING [facility] Start: 09-24-2017 ANNUAL 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 DISEASE VISIT ANNUAL PCP TEAM CHRONIC DISEASE VISIT [facility] Start: 09-24-2017 Pneumococcal Vaccine : 50+ (2 of 2 - PPSV23) Pneumococcal Vaccine: 50+ (2 of 2 - PPSV23) [facility] Start: 09-24-2017 Pneumococcal Vaccine : 65+ (2 of 2 - PPSV23 or PCV20) Pneumococcal Vaccine: 65+ (2 of 2 - PPSV23 or PCV20) [facility] Start: 09-24-2017 PNEUMOCOCCAL: 65+ (2 - PPSV23 if available, else PCV20) PNEUMOCOCCAL: 65+ (2 - PPSV23 if available, else PCV20) [facility] Start: 09-24-2017 PNEUMOCOCCAL: 65+ (2 - PPSV23 or PCV20) PNEUMOCOCCAL: 65+ (2 - PPSV23 or PCV20) [facility] Start: 07-10-2017 Colonoscopy COLONOSCOPY [facility] Start: 07-10-2017 COLORECTAL CANCER SCREENING COLORECTAL CANCER SCREENING [facility] Start: 07-10-2017 Screening for malign ant neoplasm of colon [facility] Start: 2015 PNEUMOVAX AGE 65 AND OVER WITH 5YR LOOKBACK (#1) PNEUMOVAX AGE 65 AND OVER WITH 5YR LOOKBACK (#1) [facility] Start: 01-11-2015 Medicare Annual Well ness Visit Medicare Annual Wellness Visit [facility] Start: 2010 RSV Vaccine (1 - 1-d ose 60+ series) RSV Vaccine (1 - 1-dose 60+ series) [facility] Start: 02-01-2000 SHINGRIX VACCINE (1 of 2) CABELLO GRIX VACCINE (1 of 2) [facility] Start: 1995 COLOGUARD (FIT-DNA) COLOGUARD (FIT-D NA) [facility] Start: [address] COLONOGRAPHY [facility] Start: 1995 FECAL OCCULT BLOOD FECAL OCCULT BLOO D [facility] Start: 1995 Screening for malign ant neoplasm of colon [facility] Start: 1995 SIGMOIDOSCOPY SIGMOIDOSCOPY [facility] Start: 1969 Urine microalbumin profile DTAP,TDAP ,TD (1 - Tdap) [facility] Start: 02-01-1968 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 ECG COMPLETE ECG COMPLETE ECG 07/13/2024 3:53 PM EDT [facility] Ecg routine ecg w/le ast 12 lds i&r only ECG INTERPRETATION & REPORT ONLY Cardiology MERCED Irregular heart rhythm Ordered: 07/13/2024 [facility] Work Phone: Comment on above: Ordered: 07/13/2024 End: 07-24-2025 Echocardiography ECHO Cardiology Routine Ventricular premature beats 1 Occurrences starting 07/24/2024 until 07/24/2025 [facility] Comment on above: 1 Occurrences starti ng 07/24/2024 until 07/24/2025 End: 09-12-2025 NM Heart Perfusion W stress and W radionuclide IV NM CARDIAC PERF STRESS/PHARM Radiology Routine Chest pain, unspecified type 1 Occurrences starting 08/17/2024 until 09/12/2025 [facility] Work Phone: Comment on above: 1 Occurrences starti ng 08/17/2024 until 09/12/2025 NM Heart Views W str ess and W radionuclide IV [facility] Patient Education PVCs Premature Ventricular Contract Tx [facility] Work Phone: Patient referral [facility] Work Phone: [facility] Immunizations Immunization Date Immunization Notes Care Provider Fa [facility] 11-28-2023 influenza virus vaccine, unspecified formulation Fernanda Warren MD Work Phone: [facility] 10-20-2018 tetanus toxoid, redu denise diphtheria toxoid, and acellular pertussis vaccine, adsorbed Dr. Liseth Del Valle Work Phone: [facility] 12-12-2017 influenza virus vaccine, unspecified formulation Hansel Ramsey Jr., MD Work Phone: [facility] 09-24-2016 pneumococcal conjuga te vaccine, 13 valent Hansel Ramsey Jr., MD Work Phone: [facility] Payers Date Payer Category Payer Self-pay [id number] 2015 Medicare MEDICARE MEDICAR E A AND B [id number] 2015-Present [phone] [place] [address] Medicare [id number] 2015 Medicare [id number] 2015 Private Health Insurance [facility] AARP SUPPLEMENT [id number] 2015-Present [phone] [address] [place] [address] Indemnity [id number] 2015 Private Health Insurance [id number] 2015 Medicare [id number] 2015 Unknown [id number] 1950 Unknown [id number] 1950 Unknown [id number] .278 1950 Unknown [id number] .[id number] Medicare [id number] Unknown [id number] .462 Unknown [id number] .462 Unknown [id number] .[id number] .462 Unknown [id number] .462 Unknown [id number] .462 Unknown [id number] .462 Unknown [id number] .462 Unknown [id number] [id number] .462 Unknown [id number] .462 Unknown [id number] [id number] .462 Unknown [id number] [id number] .462 Unknown [id number] [id number] .462 Unknown [id number] [id number] .462 Unknown [id number] .462 Social History Date Type Detail Facility Start: 02-09-2022 End: 07-13-2024 Tobacco smoking status NHIS Never smoked tobacco [facility] Work Phone: Start: 05-08-2021 End: 07-13-2024 Alcohol intake Current drinker of alcohol (finding) [facility] Start: 03-31-2009 History SDOH Alcohol Comment rare [facility] Start: 1950 Sex Assigned At Male [facility] Start: 04-28-2021 End: 05-08-2021 Exposure to SARS-CoV-2 (event) Not sure [facility] Start: 12-16-2020 End: 05-02-2023 Tobacco smoking status NHIS Unknown if ever smoked [facility] Start: 11-16-2019 Spouse/ Signif icant Other [facility] Start: 01-22-2018 Non-smoker [facility] Start: 02-09-2022 Tobacco use and exposure Smokeless tobacco non-user [facility] Start: 08-20-2022 End: 07-11-2023 History of Social function [facility] Start: 08-20-2022 End: 07-11-2023 Tobacco use panel [facility] Adult Depression Screening Assessment 1 [facility] Start: 06-18-2018 Gender identity Identifies as male gender (finding) [facility] Start: 06-18-2018 Sexual orientation Heterosexual (fin ding) [facility] Start: 10-28-2017 None [facility] Start: 05-03-2024 Sex Male (finding) [facility] Mental Status Date Assessment Result Facility 07-13-2024 Cognitive function Voice/Name [facility] Work Phone: Clinical Notes 07-19-2009 to 08-19-2024 Eunice Nunes, RT(R) - 08/19/2024 8:30 AM Stella Rodriguez RN - 08/19/2024 8:30 AM Jaja Levin, RT(R) - 08/17/2024 10:00 AM Hansel Jordan Jr., MD - 07/13/2024 3:31 PM EDT Note Date & Type Note Facility 08-19-2024 History of Presen t illness Narrative RADIOLOGY SERVICE PROGRESS NOTE SERVICE DATE: 08/19/2024 SERVICE TIME: 8:10 AM PATIENT IDENTITY VERIFICATION COMPLETED USING TWO (2) STANDARD IDENTIFIERS: Name and Date of confirmed by patient verbally FALL SCREENING: Has the patient had 2 falls in the last year or 1 fall with injury or currently using an Ambulatory Assistive Device (Walker, Cane, Wheelchair, Crutches, etc.)? No PATIENT GENDER DATA: .male ALLERGIES: Reviewed and updated MEDICATIONS REVIEWED: No PATIENT RELEVANT IMPLANT DATA REVIEWED: Not Applicable PATIENT PRESENTS WITH AN IMPLANTABLE OR ATTACHED ASSOCIATE RELATIONS SPECIALIST: No CREATININE: Creatinine Date Value Ref Range Status 09/19/2016 1.07 0.73 - 1.22 mg/dL Final 05/25/2015 1.06 0.70 - 1.40 mg/dL Final 12/18/2012 1.10 0.70 - 1.40 mg/dL Final eGFR-All Other Races Date Value Ref Range Status 09/19/2016 >60 . Final Comment: eGFR (Estimated GFR) Units of measure: mL/min/1.73 meters squared eGFR is derived from the reexpressed MDRD Study equation using the following parameters: serum creatinine, age, gender and race. The creatinine assay has been calibrated to be traceable to IDMS. An eGFR <60 mL/min/1.73m2 for >3 months is consistent with chronic kidney disease. Refer to KDOQI guidelines for clinical interpretation. In patients with unstable renal function, e.g. those with acute kidney injury, the eGFR may not accurately reflect actual GFR. eGFR- Date Value Ref Range Status 09/19/2016 >60 Final P.O.C.T. RESULTS: N/A August 19, [address] PERFORMED: No IV SITE: Ambulatory: A peripheral IV was started in the Left antecubital site with a Angio cath: 20 gauge. POST EXAM PIV STATUS: Discontinued PROCEDURE TYPE: NM Stress: 12.6mCi [id number] was administered IV for Rest Imaging at 0809 by OA. 33 mCi [id number] was administered IV for Stress Imaging at 911 by hn. ADMINISTRATION TIME: PATIENT DISCHARGED TO: Ambulatory patient, left [place] department area. Is this a therapy: No A Diagnostic radioactive procedure has taken place, with no further precautions necessary other than routine body substance precautions. More information regarding radiation safety can be found using this link: [email or web address] %[email or web address]-%20Diagnostic% 20Nuclear%20Medicine%20Procedur es.pdf SIGNATURE: [employer]ree [employer] PATIENT NAME: Trevor Coleman DATE: August 19, 2024 TIME: 8:10 AM PAGER/CONTACT #: RADIOLOGY SERVICE PROGRESS NOTE SERVICE DATE: 08/19/2024 SERVICE TIME: 9:16 AM PATIENT IDENTITY VERIFICATION COMPLETED USING TWO (2) STANDARD IDENTIFIERS: Name and Date of confirmed by patient verbally and Name and Date of confirmed by identification band PATIENT GENDER DATA: male ALLERGIES: Reviewed and unchanged MEDICATIONS REVIEWED BY: [employer] PROCEDURE TYPE: NM STRESS: 0.4 mg of Lexiscan was administered IV at 0911 by Stella Story RN. Reversal agent used: None. Expiration date: 10/06 Lot#: [id number] IV SITE: Ambulatory: A peripheral IV was started in the Left antecubital site with a Angio cath: 20 gauge. and A Saline lock was inserted per protocol POST EXAM PIV STATUS: Discontinued PATIENT DISCHARGED TO: Ambulatory patient, left NM department area. A Diagnostic radioactive procedure has taken place, with no further precautions necessary other than routine body substance precautions. More information regarding radiation safety can be found using this link: [email or web address] %[email or web address]-%20Diagnostic% 20Nuclear%20Medicine%20Procedur es.pdf SIGNATURE: Stella Story RN PATIENT NAME: Trevor Coleman DATE: August 19, 2024 TIME: 9:16 AM PAGER/CONTACT #: documented in this encounter [facility] 08-19-2024 Note HNO ID: [id number] Author: EUNICE NUNES RT(R) Service: Nuclear Medicine Author Type: Retirement Administrator Type: Progress Notes Filed: 08/19/2024 09:14 Note Text: RADIOLOGY SERVICE PROGRESS NOTE SERVICE DATE: 08/19/2024 SERVICE TIME: 8:10 AM PATIENT IDENTITY VERIFICATION COMPLETED USING TWO (2) STANDARD IDENTIFIERS: Name and Date of confirmed by patient verbally FALL SCREENING: Has the patient had 2 falls in the last year or 1 fall with injury or currently using an Ambulatory Assistive Device (Walker, Cane, Wheelchair, Crutches, etc.)? No PATIENT GENDER DATA: .male ALLERGIES: Reviewed and updated MEDICATIONS REVIEWED: No PATIENT RELEVANT IMPLANT DATA REVIEWED: Not Applicable PATIENT PRESENTS WITH AN IMPLANTABLE OR ATTACHED ASSOCIATE RELATIONS SPECIALIST: No CREATININE: Creatinine Date Value Ref Range Status 09/19/2016 1.07 0.73 - 1.22 mg/dL Final 05/25/2015 1.06 0.70 - 1.40 mg/dL Final 12/18/2012 1.10 0.70 - 1.40 mg/dL Final eGFR-All Other Races Date Value Ref Range Status 09/19/2016 >60 . Final Comment: eGFR (Estimated GFR) Units of measure: mL/min/1.73 meters squared eGFR is derived from the reexpressed MDRD Study equation using the following parameters: serum creatinine, age, gender and race. The creatinine assay has been calibrated to be traceable to IDMS. An eGFR <60 mL/min/1.73m2 for >3 months is consistent with chronic kidney disease. Refer to KDOQI guidelines for clinical interpretation. In patients with unstable renal function, e.g. those with acute kidney injury, the eGFR may not accurately reflect actual GFR. eGFR- Date Value Ref Range Status 09/19/2016 >60 Final P.O.C.T. RESULTS: N/A August 19, [address] PERFORMED: No IV SITE: Ambulatory: A peripheral IV was started in the Left antecubital site with a Angio cath: 20 gauge. POST EXAM PIV STATUS: Discontinued PROCEDURE TYPE: NM Stress: 12.6mCi Hi21b-Kavvarf was administered IV for Rest Imaging at 0809 by OA. 33 mCi [id number] was administered IV for Stress Imaging at 911 by hn. ADMINISTRATION TIME: PATIENT DISCHARGED TO: Ambulatory patient, left [place] department area. Is this a therapy: No A Diagnostic radioactive procedure has taken place, with no further precautions necessary other than routine body substance precautions. More information regarding radiation safety can be found using this link: [email or web address] %[email or web address]-% 20Diagnostic%20Nuclear%20Medici ne%20Procedures.pdf SIGNATURE: [employer] PATIENT NAME: Trevor Coleman DATE: August 19, 2024 TIME: 8:10 AM PAGER/CONTACT #: [facility] 08-19-2024 Note HNO ID: [id number] Author: STELLA STORY RN Service: Nursing Author Type: Registered Nurse Type: Progress Notes Filed: 08/19/2024 09:16 Note Text: RADIOLOGY SERVICE PROGRESS NOTE SERVICE DATE: 08/19/2024 SERVICE TIME: 9:16 AM PATIENT IDENTITY VERIFICATION COMPLETED USING TWO (2) STANDARD IDENTIFIERS: Name and Date of confirmed by patient verbally and Name and Date of confirmed by identification band PATIENT GENDER DATA: male ALLERGIES: Reviewed and unchanged MEDICATIONS REVIEWED BY: [employer] Fundraiser PROCEDURE TYPE: NM STRESS: 0.4 mg of Lexiscan was administered IV at 0911 by Stella Story RN. Reversal agent used: None. Expiration date: 10/06 Lot#: [id number] IV SITE: Ambulatory: A peripheral IV was started in the Left antecubital site with a Angio cath: 20 gauge. and A Saline lock was inserted per protocol POST EXAM PIV STATUS: Discontinued PATIENT DISCHARGED TO: Ambulatory patient, left [place] department area. A Diagnostic radioactive procedure has taken place, with no further precautions necessary other than routine body substance precautions. More information regarding radiation safety can be found using this link: [email or web address] %[email or web address]-% 20Diagnostic%20Nuclear%20Medici ne%20Procedures.pdf SIGNATURE: Stella Story RN PATIENT NAME: Trevor Coleman DATE: August 19, 2024 TIME: 9:16 AM PAGER/CONTACT #: [facility] 08-17-2024 History of Presen t illness Narrative Radiology Service Progress Note DATE OF SERVICE: August 17, 2024 TIME: 1:58 PM PATIENT IDENTITY VERIFICATION COMPLETED USING TWO (2) STANDARD IDENTIFIERS: Name and Date of confirmed by patient verbally. FALL SCREENING: Has the patient had 2 falls in the last year or 1 fall with injury or currently using an Ambulatory Assistive Device (Walker, Cane, Wheelchair, Crutches, etc.)? No PATIENT GENDER DATA: Assigned male at PATIENT RELEVANT IMPLANT DATA REVIEWED: Yes PATIENT PRESENTS WITH AN IMPLANTABLE OR ATTACHED ASSOCIATE RELATIONS SPECIALIST: No ALLERGIES: Reviewed and unchanged CONTRAST ALLERGY: NO. EXAM: CT -CONTRAST INDUCED NEPHROPATHY RISK FACTORS: Patient age > 60 years CREATININE: Creatinine Date Value Ref Range Status 09/19/2016 1.07 0.73 - 1.22 mg/dL Final 05/25/2015 1.06 0.70 - 1.40 mg/dL Final 12/18/2012 1.10 0.70 - 1.40 mg/dL Final eGFR-All Other Races Date Value Ref Range Status 09/19/2016 >60 . Final Comment: eGFR (Estimated GFR) Units of measure: mL/min/1.73 meters squared eGFR is derived from the reexpressed MDRD Study equation using the following parameters: serum creatinine, age, gender and race. The creatinine assay has been calibrated to be traceable to IDMS. An eGFR <60 mL/min/1.73m2 for >3 months is consistent with chronic kidney disease. Refer to KDOQI guidelines for clinical interpretation. In patients with unstable renal function, e.g. those with acute kidney injury, the eGFR may not accurately reflect actual GFR. eGFR- Date Value Ref Range Status 09/19/2016 >60 Final P.O.C.T. RESULTS: POC done: Yes, See Lab Tab August 17, 2024 TREATMENT: N/A PERIPHERAL IV DATA: Ambulatory: A peripheral IV was started in the Left antecubital site with a Angio cath: 22 gauge. RADIOLOGY DEPARTMENT: CT; Exam(s) Completed: Pelvis SIGNATURE: VALERIY Anderson) PATIENT NAME: Trevor Coleman DATE: August 17, 2024 TIME: 1:58 PM documented in this encounter [facility] 08-17-2024 Note HNO ID: [id number] Author: JAJA MOREAU RT (R) Service: ? Author Type: Retirement Administrator Type: Progress Notes Filed: 08/17/2024 13:58 Note Text: Radiology Service Progress Note DATE OF SERVICE: August 17, 2024 TIME: 1:58 PM PATIENT IDENTITY VERIFICATION COMPLETED USING TWO (2) STANDARD IDENTIFIERS: Name and Date of confirmed by patient verbally. FALL SCREENING: Has the patient had 2 falls in the last year or 1 fall with injury or currently using an Ambulatory Assistive Device (Walker, Cane, Wheelchair, Crutches, etc.)? No PATIENT GENDER DATA: Assigned male at PATIENT RELEVANT IMPLANT DATA REVIEWED: Yes PATIENT PRESENTS WITH AN IMPLANTABLE OR ATTACHED ASSOCIATE RELATIONS SPECIALIST: No ALLERGIES: Reviewed and unchanged CONTRAST ALLERGY: NO. EXAM: CT -CONTRAST INDUCED NEPHROPATHY RISK FACTORS: Patient age > 60 years CREATININE: Creatinine Date Value Ref Range Status 09/19/2016 1.07 0.73 - 1.22 mg/dL Final 05/25/2015 1.06 0.70 - 1.40 mg/dL Final 12/18/2012 1.10 0.70 - 1.40 mg/dL Final eGFR-All Other Races Date Value Ref Range Status 09/19/2016 >60 . Final Comment: eGFR (Estimated GFR) Units of measure: mL/min/1.73 meters squared eGFR is derived from the reexpressed MDRD Study equation using the following parameters: serum creatinine, age, gender and race. The creatinine assay has been calibrated to be traceable to IDMS. An eGFR <60 mL/min/1.73m2 for >3 months is consistent with chronic kidney disease. Refer to KDOQI guidelines for clinical interpretation. In patients with unstable renal function, e.g. those with acute kidney injury, the eGFR may not accurately reflect actual GFR. eGFR- Date Value Ref Range Status 09/19/2016 >60 Final P.O.C.T. RESULTS: POC done: Yes, See Lab Tab August 17, 2024 TREATMENT: N/A PERIPHERAL IV DATA: Ambulatory: A peripheral IV was started in the Left antecubital site with a Angio cath: 22 gauge. RADIOLOGY DEPARTMENT: CT; Exam(s) Completed: Pelvis SIGNATURE: RT Monica(R) PATIENT NAME: Trevor Coleman DATE: August 17, 2024 TIME: 1:58 PM [facility] 07-31-2024 Note HNO ID: [id number] Author: MILTON MCFARLANE RN Service: ? Author Type: Registered Nurse Type: Progress Notes Filed: 07/31/2024 16:20 Note Text: Faxed echo result to outside provider successfully. [facility] 07-20-2024 Telephone encounter Note Records obtained from [facility] ER visit and given to provider for review. Saige Perez LPN [facility] 07-20-2024 Miscellaneous Notes Records obtained from [facility] ER visit and given to provider for review. Saige Perez LPN documented in this encounter [facility] 07-13-2024 Radiology Diagnostic study note [facility] Imaging Services [address], [place] [address] Chest PA and Lateral MR#: [id number] Acct: [id number] Name: SHANNENMANNIETREVOR THOMPSON Rep #: [id number] : 1950 M 74 From: Sheela Buckner MD PCP: Dr. Liseth Del Valle DO Status: REG ER Study:Chest PA and Lateral Date of Exam: 07/13/24 Exam# [id number] Ordering Dr: Shaheen Ramey DO PROCEDURE: CHEST PA AND LATERAL 07/13/2024 REASON FOR EXAM: IRREGULAR HEARTBEAT TECHNIQUE: Frontal and lateral views of the chest. COMPARISON: Chest radiograph 11/29/2020 FINDINGS: Hardware: Leadless cardiac device projects over the heart. Heart: The heart size is normal. Mediastinum: The mediastinal contour is stable. Lungs: The lungs are clear. No pleural effusion. Bones: Degenerative changes are identified within the shoulders and thoracic spine. RAD/Chest PA and Lateral IMPRESSION: No acute cardiopulmonary abnormality. Reading Location: [id number] CC: Dr. Shaheen Prajapati DO; Dr. Liseth Del Valle DO ~ Skein Straightener: Signed [facility] 07-13-2024 Note HNO ID: [id number] Author: HANSEL RAMSEY JR, MD Service: ? Author Type: Physician Type: Progress Notes Filed: 07/13/2024 17:43 Note Text: ESTABLISHED PATIENT VISIT CHIEF COMPLAINT: Follow Up HISTORY OF PRESENT ILLNESS: Trevor Coleman is a 74 year old male, BMI 29.62 kg/m2 with a PMH significant for and per last office visit note of 07/12/23: 1. Lightheaded - ICD9: 780.4, ICD10: R42 (primary diagnosis) 2. Vertigo - ICD9: 780.4, ICD10: R42 Chronic history of lightheadedness and dizziness for which etiology has yet to be determined despite extensive workup. Possibly multifactorial including known history of orthostatic hypotension, prior episodes of bradycardia (follows with cards), possibly due to chronic ocular disorder and possibly BPPV. No additional workup at this time. Continue to monitor. Explained to pt that when episode occurs, difficult to discern whether stroke or other and thus, would recommend ER evaluation if not quickly resolving. Patient also educated on other s/s of stroke for which he should seek immediately medical attention. 3. Obstructive sleep apnea syndrome - ICD9: 327.23, ICD10: G47.33 Asx with patient using positional therapy. No significant weight changes. Pt educated on ASYA s/s and will contact us if present for repeat sleep testing. 4. History of stroke - ICD9: V12.54, ICD10: Z86.73 No new focal neuro deficits per history and stable neuro exam. No changes in meds above including Plavix, statin, BP goal >140/90 and glucose goal <140. States that over past 2 weeks, his BP cuff is reporting an irregular heart rhythm. No cardiac symptoms endorsed by patient including no CP, palpitations, sob. Lightheadedness and dizziness chronic but unchanged. As noted in past, known OH and episodes of bradycardia. Not vertigo with pt specifically stating it's lightheadedness. Sleep apnea doing well. Still sleeping on side. No ASYA symptoms. No weight gain. Going for EGD next week. Reports has to be off Plavix 7 days. Patient advised of risks of stopping Plavix given history of stroke, including new stroke. No new stroke like symptoms. REVIEW OF SYSTEMS GENERAL:No weight loss, malaise [...] - EXCEPT that as per HPI above. LAB/IMAGING: Those performed since patient's last visit [...] (no units) Date Value 08/11/2015 Negative MEDICATIONS: Saw Oriska Fruit 450 mg cap Take 450 mg by mouth once daily. levothyroxine (SYNTHROID) 137 mcg tablet Take 1 tablet by mouth once daily. hydroCHLOROthiazide (HYDRODIURIL, ESIDRIX) 12.5 mg tablet Take 12.5 mg by mouth twice daily. losartan (COZAAR) 50 mg tablet Take 50 mg by mouth as directed. 1/2 tablet in the AM AND 1 tablet in the evening Bxgzvpzgymtrv-Iqmdmolk-Vqjclh (MULTIVITAMIN 50 PLUS) tab Take 1 tablet by mouth once daily. MAGNESIUM ORAL Take 500 mg by mouth once daily. clopidogrel (PLAVIX) 75 mg tablet Take 75 mg by mouth once daily. atorvastatin (LIPITOR) 40 mg tablet Take 1 tablet by mouth once daily. Cholecalciferol, Vitamin D3, (VITAMIN D-3) 2,000 unit tab Take 1 tablet by mouth once daily. loratadine (CLARITIN) 10 mg tablet Take 10 mg by mouth once daily. levothyroxine (LEVOXYL) 175 mcg tablet Take 1 tablet by mouth once daily. Take on empty stomach. For thyroid. triamcinolone acetonide (KENALOG) 0.1 % cream Apply to affected area twice daily. HISTORIES PAST MEDICAL HISTORY Diagnosis Date Hypertension Stroke (HCC) FAMILY HISTORY Prob (more content not included)... [facility] 07-13-2024 Note HNO ID: [id number] Author: HANSEL RAMSEY JR, MD Service: ? Author Type: Physician Type: Progress Notes Filed: 07/13/2024 17:43 Note Text: 07/09/2024 PROMIS Global Health Physical Health Summary Physical health: Good Everyday physical activity, ability: Completely Fatigue: Mild Pain level: 1 General health: Good Social activities/roles, ability: Very good Physical Health T-Score 50.8 (Very Good) Physical Health Percentile 53 PROMIS Global Health Mental Health Summary Quality of life: Good Mental health (mood,thinking): Very good Social satisfaction: Very good Emotional problems (anxious,depressed): Rarely Mental Health T-Score 50.8 (Very Good) Mental Health Percentile 53 Percentiles provide an indication of how a patient's score ranks in relation to the [place] general population. > 31st percentile is within normal limits or better *< 31st percentile is at least ? SD worse than population, which may be clinically relevant < 16th percentile is at least 1 SD worse than population and warrants attention 07/09/2024 Sleep Apnea Probability Snores loudly: No Tired, fatigued or sleepy in daytime: No Stops breathing or choking/gasping during sleep: No High blood pressure: Yes Sleep Apnea Probability Score: 61 (Recommend sleep study) [facility] 07-13-2024 History of Presen t illness Narrative ESTABLISHED PATIENT VISIT CHIEF COMPLAINT: Follow Up HISTORY OF PRESENT ILLNESS: Trevor Coleman is a 74 year old male, BMI 29.62 kg/m2 with a PMH significant for and per last office visit note of 07/12/23: 1. Lightheaded - ICD9: 780.4, ICD10: R42 (primary diagnosis) 2. Vertigo - ICD9: 780.4, ICD10: R42 Chronic history of lightheadedness and dizziness for which etiology has yet to be determined despite extensive workup. Possibly multifactorial including known history of orthostatic hypotension, prior episodes of bradycardia (follows with cards), possibly due to chronic ocular disorder and possibly BPPV. No additional workup at this time. Continue to monitor. Explained to pt that when episode occurs, difficult to discern whether stroke or other and thus, would recommend ER evaluation if not quickly resolving. Patient also educated on other s/s of stroke for which he should seek immediately medical attention. 3. Obstructive sleep apnea syndrome - ICD9: 327.23, ICD10: G47.33 Asx with patient using positional therapy. No significant weight changes. Pt educated on ASYA s/s and will contact us if present for repeat sleep testing. 4. History of stroke - ICD9: V12.54, ICD10: Z86.73 No new focal neuro deficits per history and stable neuro exam. No changes in meds above including Plavix, statin, BP goal >140/90 and glucose goal <140. States that over past 2 weeks, his BP cuff is reporting an irregular heart rhythm. No cardiac symptoms endorsed by patient including no CP, palpitations, sob. Lightheadedness and dizziness chronic but unchanged. As noted in past, known OH and episodes of bradycardia. Not vertigo with pt specifically stating it's lightheadedness. Sleep apnea doing well. Still sleeping on side. No ASYA symptoms. No weight gain. Going for EGD next week. Reports has to be off Plavix 7 days. Patient advised of risks of stopping Plavix given history of stroke, including new stroke. No new stroke like symptoms. REVIEW OF SYSTEMS GENERAL:No weight loss, malaise [...] - EXCEPT that as per HPI above. LAB/IMAGING: Those performed since patient's last visit [...] (no units) Date Value 08/11/2015 Negative MEDICATIONS: Saw Oriska Fruit 450 mg cap Take 450 mg by mouth once daily. levothyroxine (SYNTHROID) 137 mcg tablet Take 1 tablet by mouth once daily. hydroCHLOROthiazide (HYDRODIURIL, ESIDRIX) 12.5 mg tablet Take 12.5 mg by mouth twice daily. losartan (COZAAR) 50 mg tablet Take 50 mg by mouth as directed. 1/2 tablet in the AM & 1 tablet in the evening Bohicxnfteica-Pfrlmqtm-Bkeohi (MULTIVITAMIN 50 PLUS) tab Take 1 tablet by mouth once daily. MAGNESIUM ORAL Take 500 mg by mouth once daily. clopidogrel (PLAVIX) 75 mg tablet Take 75 mg by mouth once daily. atorvastatin (LIPITOR) 40 mg tablet Take 1 tablet by mouth once daily. Cholecalciferol, Vitamin D3, (VITAMIN D-3) 2,000 unit tab Take 1 tablet by mouth once daily. loratadine (CLARITIN) 10 mg tablet Take 10 mg by mouth once daily. levothyroxine (LEVOXYL) 175 mcg tablet Take 1 tablet by mouth once daily. Take on empty stomach. For thyroid. triamcinolone acetonide (KENALOG) 0.1 % cream Apply to affected area twice daily. HISTORIES PAST MEDICAL HISTORY Diagnosis Date Hypertension Stroke (HCC) FAMILY HISTORY Problem Relation Age of Onset None Mother Heart Father BYPASS SOCIAL HISTORY Social History Tobacco Use Smoking status: Never Smokeless tobacco: Never Substance Use Topics Alcohol use: Yes Comment: rare Drug use: No PHYSICAL EXAMINATION BP 136/78 (BP Site: Left Arm, BP Position: Sitting) Pulse 64 Resp 18 Wt 99.1 kg (218 lb 6.4 oz) SpO2 99% BMI 29.62 kg/m GENERAL EXAM: General appearance: NAD, pleasant. HEENT: NC/AT, nasal congestion absent, no oral lesions, membranes moist. NECK: ROM nml. Lungs: CTA bilaterally. CV: Bradycardia with irregular rhythm. No carotid bruits. Extr: No cyanosis, clubbing or edema. Skin: Cool to touch. NEUROLOGICAL EXAM: General: Awake, alert, oriented x3 (person,place,time), speech fluent, no dysarthria; comprehension, naming, repetition intact. CN: PERRL, EOMI and without nystagmus, VFF to confrontation, facial sensation and strength are normal and symmetric, hearing is intact to finger rub bilaterally, palate and tongue movements are intact and symmetric. SCM and trapezius strength normal. Motor: Normal tone, bulk and strength (5/5) bilaterally (throughout extremities x4). Coordination: FNF, MATY, HTS intact. No tremors. Sensation: Light touch and vibration intact throughout. No evidence of neglect. Gait: Stable with normal stride and arm swing. Assessment and Plan: ASSESSMENT/PLAN: 1. Lightheaded - ICD9: 780.4, ICD10: R42 (primary diagnosis) Chronic and multifactorial as above, including history of OH and bradycardia. Not vertigo by history today. Following with cardiology and no additional recs at this time. 2. Obstructive sleep apnea syndrome - ICD9: 327.23, ICD10: G47.33 Clinically stable with positional therapy. Pt reports no ASYA type symptoms. This included no snoring, dry mouth, non restorative sleep or daytime sleepiness. He is not wanting further evaluation, Encouraged patient to continue to sleep off-supine as well as for weight loss. 3. History of stroke - ICD9: V12.54, ICD10: Z86.73 No new focal neuro deficits. No changes in meds above including Plavix, statin, BP goal >140/90 and glucose goal <140. 4. Irregular heart rhythm - ICD9: 427.9, ICD10: I49.9 Abnormal rhythm on auscultation and pulse. ECG also showing sinus rhythm with PVCs and pauses. Attempted to reach [facility] who is following patient for comparison ECG and recs. Faxed ECG multiple times and advised they would call back but never did. D/w pt. He is concerned and thus, will have him go to [facility] ER for further monitoring. 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 Follow up 6 months or sooner prn. Hansel Ramsey MD I spent a total of 45 minutes on the date of the service which included preparing to see the patient, [id number] patient care, completing clinical documentation, obtaining and/or reviewing separately obtained history, performing a medically appropriate examination, counseling and educating the patient/family/caregiver, ordering medications, tests, or procedures, communicating with other HCPs (not separately reported), independently interpreting results (not separately reported), and communicating results to the patient/family/caregiver. 07/09/2024 PROMIS Global Health Physical Health Summary Physical health: Good Everyday physical activity, ability: Completely Fatigue: Mild Pain level: 1 General health: Good Social activities/roles, ability: Very good Physical Health T-Score 50.8 (Very Good) Physical Health Percentile 53 PROMIS Global Health Mental Health Summary Quality of life: Good Mental health (mood,thinking): Very good Social satisfaction: Very good Emotional problems (anxious,depressed): Rarely Mental Health T-Score 50.8 (Very Good) Mental Health Percentile 53 Percentiles provide an indication of how a patient's score ranks in relation to the [place] general population. > 31st percentile is within normal limits or better *< 31st percentile is at least SD worse than population, which may be clinically relevant < 16th percentile is at least 1 SD worse than population and warrants attention 07/09/2024 Sleep Apnea Probability Snores loudly: No Tired, fatigued or sleepy in daytime: No Stops breathing or choking/gasping during sleep: No High blood pressure: Yes Sleep Apnea Probability Score: 61 (Recommend sleep study) documented in this encounter [facility] 04-27-2024 Evaluation note Diagnosis Onset Date Resolution Bradycardia acute April 27 1:24pm CVA (cerebral vascular accident) October, chronic April 27, 2024 1:24pm Essential (primary) hypertension chronic April 27, 2024 1:24pm [facility] Work Phone: 1(159) 811-245503-17-2025 Evaluation note* Diagnosis Onset Date Resolution Status Admit Date Bradycardia acute April 27, 2 025 1:24pm CVA (cerebral vascular accident) October, chronic April 27, 2024 1:24pm Essential (primary) hypertension chronic April 27, 2024 1:24pm Eructation acute June 16, 2024 2:19pm Gastroesophageal reflux disease noneactive June 16, 2024 2:19pm Left shoulder pain acute June 82024 2:07pm [facility] Work Phone: 1([phone]) 980-248503-17-2025 Evaluation note* Diagnosis Onset Date Resolution Status Admit Date Bradycardia acute April 27, 2 025 1:24pm CVA (cerebral vascular accident) October, chronic April 27, 2024 1:24pm Essential (primary) hypertension chronic April 27, 2024 1:24pm Eructation acute June 16, 2024 2:19pm Gastroesophageal reflux disease noneactive June 16, 2024 2:19pm Left shoulder pain acute June 2:07pm Bradycardia acute July 16 1:47pm Frequent unifocal PVCs acute [facility] 2024 1:47pm CVA (cerebral vascular accident) October, chronic July 16, 2024 1:47pm Essential (primary) hypertension chronic July 16, 2024 1:47pm [facility] Work Phone: 1(210) 382-114603-17-2025 Evaluation note* Diagnosis Onset Date Resolution Status Admit Date Bradycardia acute April 27, 2 025 1:24pm CVA (cerebral vascular accident) October, chronic April 27, 2024 1:24pm Essential (primary) hypertension chronic April 27, 2024 1:24pm Eructation acute June 16, 2024 2:19pm Gastroesophageal reflux disease noneactive June 16, 2024 2:19pm Left shoulder pain acute June 2:07pm Bradycardia acute July 16 1:47pm CVA (cerebral vascular accident) October, chronic July 16, 2024 1:47pm Essential (primary) hypertension chronic July 16, 2024 1:47pm Frequent unifocal PVCs inactive [facility] 2024 1:47pm [facility] Work Phone: 1(227) 997-588403-17-2025 Evaluation note* Diagnosis Onset Date Resolution Status Admit Date Bradycardia acute April 27, 2 025 1:24pm CVA (cerebral vascular accident) October, chronic April 27, 2024 1:24pm Essential (primary) hypertension chronic April 27, 2024 1:24pm Eructation acute June 16, 2024 2:19pm Gastroesophageal reflux disease noneactive June 16, 2024 2:19pm Left shoulder pain acute June 2:07pm Bradycardia acute July 16 1:47pm CVA (cerebral vascular accident) October, chronic July 16, 2024 1:47pm Essential (primary) hypertension chronic July 16, 2024 1:47pm Frequent unifocal PVCs inactive [facility] 20[facility] 1:47pm Bradycardia acute August 04 7:45am CVA (cerebral vascular accident) October, chronic August 04, 2024 7:45am Essential (primary) hypertension chronic August 04, 2024 7:45am HLD (hyperlipidemia) chronic August 04, 2024 7:45am Frequent unifocal PVCs inactive [facility] 2024 7:45am [facility] [employer] Work Phone: 1(855) 529-418105-31-2024 History of Present illness Narrative* Hanesl Ramsey Jr., MD - 07/12/2023 11:49 AM EDT ESTABLISHED PATIENT VISIT CHIEF COMPLAINT: Follow Up HISTORY OF PRESENT ILLNESS: Trevor Coleman is a 73 year old male, BMI 30.79 kg/m2 with a PMH significant for and per last office visit note of 08/20/22: 1. Bradycardia - ICD9: 427.89, ICD10: R00.1 (primary diagnosis) 2. Lightheaded - ICD9: 780.4, ICD10: R42 3. Vertigo - ICD9: 780.4, ICD10: R42 Patient with history of lightheadedness and orthostatic hypotension. Symptoms were improving. In past there has also been question of vertigo but neurologic workup has not suggested such and even current symptoms not suggestive of a spinning sensation but rather a sense of feeling more presyncopal.Note that lightheadedness now not associated with a positional change, and thus, concern for new finding of bradycardia with pt having recurrent HR in low 40s and high 30s that have been directly related with exacerbation of symptoms. Unfortunately was not on loop recorded at time of events. D/w ptand placing order to get pt back in with [facility] Dr Nyla BLACKWOOD for further evaluation. 4. Obstructive sleep apnea syndrome - ICD9: 327.23, ICD10: G47.33 Asx if off-supine with pt practicing positional therapy. Note with patient now falling within CMS criteria, his AHI would be 1.8 based on prior sleep study approximately 5 years ago (no weight gain since). That said the supine RDI was 45. Again, asx if off-supine. No changes in therapy at this timeand pt not wanting additional sleep study. 5. History of stroke - ICD9: V12.54, ICD10: Z86.73 No new focal neuro deficits per history and stable neuro exam. No changes in meds above including Plavix, statin, BP goal >140/90 and glucose goal <140. Patient feels doing well overall. 2 times in past year had room spinning sensation, but goes away in minutes to hour. On discussion appears to be more of lightheadedness. He adds that he has also hadmore heartburn - associates with eating meals late and while in a semi reclined position. Saw Dr. Redmond's office and per pt they were not too concerned about low hearted. Dizzy spells not associated with headache or vision changes, or speech change. Last episode was couple months ago and lasted about 1 hour. 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 Still sleeping on side. No snoring. No witnessed apneas. Feels good upon waking and not tired during the day - takes nap but only out of habit. No new medications. No new focal neuro deficits. Lower back doing well. REVIEW OF SYSTEMS GENERAL:No weight loss, malaise or fevers. HEENT:Negative for frequent or significant headaches, No changes in hearing or vision, no nose bleeds or other nasal problems NECK:Negative for lumps, goiter, pain and significant neck swelling RESPIRATORY: Negative for cough, wheezing or shortness of breath. CARDIOVASCULAR: Negative for chest pain, leg swelling or palpitations. GASTROINTESTINAL: See HPI. MUSCULOSKELETAL: Negative for joint pain or swelling, [...] (no units) Date Value 08/11/2015 Negative MEDICATIONS: Saw Oriska Fruit 450 mg cap Take 450 mg by mouth once daily. levothyroxine (SYNTHROID) 137 mcg tablet Take 1 tablet by mouth once daily. hydroCHLOROthiazide (HYDRODIURIL, ESIDRIX) 12.5 mg tablet Take 12.5 mg by mouth twice daily. losartan (COZAAR) 50 mg tablet Take 50 mg by mouth as directed. 1/2 tablet in the AM & 1 tabletin the evening loratadine (CLARITIN) 10 mg tablet Take 10 mg by mouth once daily. Vdatzolylewmv-Xuiauuiu-Rejhav (MULTIVITAMIN 50 PLUS) tab Take 1 tablet by mouth once daily. MAGNESIUM ORAL Take 500 mg by mouth once daily. clopidogrel (PLAVIX) 75 mg tablet Take 75 mg by mouth once daily. atorvastatin (LIPITOR) 40 mg tablet Take 1 tablet by mouth once daily. Cholecalciferol, Vitamin D3, (VITAMIN D-3) 2,000 unit tab Take 1 tablet by mouth once daily. levothyroxine (LEVOXYL) 175 mcg tablet Take 1 tablet by mouth once daily. Take on empty stomach. For thyroid. triamcinolone acetonide (KENALOG) 0.1 % cream Apply to affected area twice daily. HISTORIES PAST MEDICAL HISTORY Diagnosis Date Hypertension Stroke (HCC) FAMILY HISTORY Problem Relation Age of Onset None Mother Heart Father BYPASS SOCIAL HISTORY Social History Tobacco Use Smoking status: Never Smokeless tobacco: Never Substance Use Topics Alcohol use: Yes Comment: rare Drug use: No PHYSICAL EXAMINATION BP 126/78 Pulse 71 Resp 16 Wt 103 kg (227 lb) SpO2 97% BMI 30.79 kg/m GENERAL EXAM: General appearance: NAD, pleasant. HEENT: NC/AT, nasal congestion absent, no oral lesions, membranes moist. Tony exam unremarkable. NECK: No masses, supple. Lungs: CTA bilaterally. CV: RRR nl S1, S2. No carotid bruits. Extr: No cyanosis, clubbing or edema. Skin: Cool to touch. NEUROLOGICAL EXAM: General: Awake, alert, oriented x3 (person,place,time), speech fluent, no dysarthria; comprehension, naming, repetition intact. Fund of knowledge grossly normal. CN: PERRL, fundi with no evidence of papilledema, EOMI and without nystagmus, VFF to confrontation,facial sensation and strength are normal and symmetric, hearing is intact, palate and tongue movements are intact and symmetric. SCM and trapezius strength normal. Motor: Normal tone, bulk and strength (5/5) bilaterally (throughout extremities x4). Coordination: FNF, MATY, HTS intact. No tremors. Sensation: LT, vibration, temperature intact throughout. No evidence of neglect. Gait: Stable with normal stride and arm swing. Romberg normal. Assessment and Plan: ASSESSMENT/PLAN: 1. Lightheaded - ICD9: 780.4, ICD10: R42 (primary diagnosis) 2. Vertigo - ICD9: 780.4, ICD10: R42 Chronic history of lightheadedness and dizziness for which etiology has yet to be determined despite extensive workup. Possibly multifactorial including known history of orthostatic hypotension, prior episodes of bradycardia (follows with cards), possibly due to chronic ocular disorder and possiblyBPPV. No additional workup at this time. Continue to monitor. Explained to pt that when episode occu rs, difficult to discern whether stroke or other and thus, would recommend ER evaluation if not quickly resolving. Patient also educated on other s/s of stroke for which he should seek immediately medical attention. 3. Obstructive sleep apnea syndrome - ICD9: 327.23, ICD10: G47.33 Asx with patient using positional therapy. No significant weight changes. Pt educated on ASYA s/s and will contact us if present for repeat sleep testing. 4. History of stroke - ICD9: V12.54, ICD10: Z86.73 No new focal neuro deficits per history and stable neuro exam. No changes in meds above including Plavix, statin, BP goal >140/90 and glucose goal <140. Note encouraged follow up with PCP regarding reflux - also advised to eat with upright posture and not in a reclined position. Hansel Ramsey MD I spent a total of 20+ minutes on the date of the service which included preparing to see the patient, [id number] patient care, completing clinical documentation, obtaining and/or reviewing separately obtained history, performing a medically appropriate examination, counseling and educating the pa tient/family/caregiver, and communicating results to the patient/family/caregiver (reviewed prior MRI brain and CTA findings - in EPIC). * Kathleen Pugh LPN - 07/12/2023 11:20 AM EDT 07/11/2023 PROMIS [facility] Physical Health Summary Physical health: Good Everyday physical activity, ability: Completely Fatigue: Mild Pain level: 1 General health: Good Social activities/roles, ability: Very good Physical Health T-Score 50.8 (Very Good) Physical Health Percentile 53 PROMIS [facility] Mental Health Summary Quality of life: Very good Mental health (mood,thinking): Good Social satisfaction: Good Emotional problems (anxious,depressed): Rarely Mental Health T-Score 48.3 (Very Good) Mental Health Percentile 43 PHQ-9 Score: 5(Mild Depression) PHQ-9 Self-Harm: Not at all NEURO-QOL Cognitive Function T-Score 50(Within Normal Limits) Neuro-Qol Cognitive Function Percentile 50 Percentiles provide an indication of how a patient's score ranks in relation to the [place] general population. > 31st percentile is within normal limits or better *< 31st percentile is at least SD worse than population, which may be clinically relevant < 16th percentile is at least 1 SD worse than population and warrants attention documented [facility] History of Present illness Narrative* Hansel Ramsey Jr., MD - 08/20/2022 1:47 PM EDT ESTABLISHED PATIENT VISIT CHIEF COMPLAINT: Follow Up HISTORY OF PRESENT ILLNESS: Trevor Coleman is a 72 year old male, with a PMH significant for and per last office visit on 02/09/22: 1. Vertigo - ICD9: 780.4, ICD10: R42 (primary diagnosis) Brief episode last few seconds and associated with positional change. No associated focal neuro deficits. No elevation in BP. Overall history not suggestive of vascular event. Note that prior CTA in 2017 showed patent posterior circulation. Pt would prefer no additional workup at this time. Advisedpt that if symptoms recur and last more than a few seconds or are not associated with position change then to be evaluated in the ER for concerns of possible stroke or TIA. Again, pt on Plavix and statin. 2. Orthostatic hypotension - ICD9: 458.0, ICD10: I95.1 Stable. BP meds at times resulting in drops in BP to point that symptoms occur (sys <110). Encouraged hydration and slow positional changes as in the past. 3. Obstructive sleep apnea syndrome - ICD9: 327.23, ICD10: G47.33 Continue positional therapy. 4. History of stroke - ICD9: V12.54, ICD10: Z86.73 No new focal deficits. Again, vertigo by history likely peripheral nature. Continue Plavix, Statin,BP goal <140/90, Glucose goal <140. Pt advised what to do if concern for stroke symptoms including prolonged vertigo -- ER evaluation/911. Patient states had another day of feeling lightheaded. States BP was good. Did not play golf as planned due to symptoms. States last night this happened got alerts on his phone/watch that his HR was in the low 40s (carmita). Has not seen cardiology in a few months (Dr. Redmond). Pt previously had loop recorded but battery per pt. Not daily but has had few days like this in the few months. Room not spinning. Shows a list of HRs and numerous both carmita and tachy symptoms. Still sleeping on side. Denies any snoring, witnessed apneas. Wakes up feeling good. Denies feelingtired during the day. No new stroke symptoms. No focal neuro deficits. No posterior fossa symptoms such as diplopia, dysarthria, dysphagia, vertigo. REVIEW OF SYSTEMS GENERAL:No weight loss, malaise or fevers. HEENT:Negative for frequent or significant headaches, No changes in hearing or vision, no nose bleeds or other nasal problems NECK:Negative for lumps, goiter, pain and significant neck swelling RESPIRATORY: Negative for cough, wheezing or shortness of breath. CARDIOVASCULAR: See HPI. NO CP or palpitations. GASTROINTESTINAL: Negative for abdominal discomfort, blood in stools or black stools or change in bowel habits GENITOURINARY: No history of dysuria, frequency or incontinence MUSCULOSKELETAL: Negative for joint pain or swelling, back pain or muscle pain. NEUROLOGIC:Negative for focal numbness or weakness, headaches and dizziness or syncope, vision changes, speech/languag changes - EXCEPT that as per HPI above. LAB/IMAGING: Those performed since patient's last visit [...] (no units) Date Value 08/11/2015 Negative MEDICATIONS: levothyroxine (SYNTHROID) 137 mcg tablet Take 1 tablet by mouth once daily. hydroCHLOROthiazide (HYDRODIURIL, ESIDRIX) 12.5 mg tablet Take 12.5 mg by mouth twice daily. losartan (COZAAR) 50 mg tablet Take 50 mg by mouth as directed. 1/2 tablet in the AM & 1 tabletin the evening loratadine (CLARITIN) 10 mg tablet Take 10 mg by mouth once daily. Idgpitgilsqhz-Ctliykut-Uvpgbp (MULTIVITAMIN 50 PLUS) tab Take 1 tablet by mouth once daily. MAGNESIUM ORAL Take 500 mg by mouth once daily. clopidogrel (PLAVIX) 75 mg tablet Take 75 mg by mouth once daily. atorvastatin (LIPITOR) 40 mg tablet Take 1 tablet by mouth once daily. levothyroxine (LEVOXYL) 175 mcg tablet Take 1 tablet by mouth once daily. Take on empty stomach. For thyroid. triamcinolone acetonide (KENALOG) 0.1 % cream Apply to affected area twice daily. Cholecalciferol, Vitamin D3, (VITAMIN D-3) 2,000 unit tab Take 1 tablet by mouth once daily. HISTORIES PAST MEDICAL HISTORY Diagnosis Date Hypertension Stroke (HCC) FAMILY HISTORY Problem Relation Age of Onset None Mother Heart Father BYPASS SOCIAL HISTORY Social History Tobacco Use Smoking status: Never Smokeless tobacco: Never Substance Use Topics Alcohol use: Yes Comment: rare Drug use: No PHYSICAL EXAMINATION Blood pressure 146/83, pulse (!) 57, temperature 36.4 C (97.5 F), resp. rate 16, weight 100.1 kg (220 lb 9.6 oz), SpO2 98 %. GENERAL EXAM: General appearance: NAD, pleasant. HEENT: NC/AT, nasal congestion absent, no oral lesions, membranes moist. Tony exam unremarkable. Lungs: CTA bilaterally. CV: RRR nl S1, S2 Extr: No cyanosis, clubbing or edema. Skin: Cool to touch. NEUROLOGICAL EXAM: General: Awake, alert, oriented x3 (person,place,time), speech fluent, no dysarthria; comprehension, naming, repetition intact. CN: PERRL, fundi with no evidence of papilledema, EOMI and without nystagmus, VFF to confrontation,facial sensation and strength are normal and symmetric, hearing is intact to finger rub bilaterally, palate and tongue movements are intact and symmetric. SCM and trapezius strength normal. Motor: Normal tone, bulk and strength (5/5) bilaterally (throughout extremities x4). Coordination: FNF, MATY, HTS intact. No tremors. Sensation: Light touch intact throughout. No evidence of neglect. Gait: Stable with normal stride and arm swing. Assessment and Plan: ASSESSMENT/PLAN: 1. Bradycardia - ICD9: 427.89, ICD10: R00.1 (primary diagnosis) 2. Lightheaded - ICD9: 780.4, ICD10: R42 3. Vertigo - ICD9: 780.4, ICD10: R42 Patient with history of lightheadedness and orthostatic hypotension. Symptoms were improving. In past there has also been question of vertigo but neurologic workup has not suggested such and even current symptoms not suggestive of a spinning sensation but rather a sense of feeling more presyncopal.Note that lightheadedness now not associated with a positional change, and thus, concern for new finding of bradycardia with pt having recurrent HR in low 40s and high 30s that have been directly related with exacerbation of symptoms. Unfortunately was not on loop recorded at time of events. D/w ptand placing order to get pt back in with [facility] Dr Nyla BLACKWOOD for further evaluation. 4. Obstructive sleep apnea syndrome - ICD9: 327.23, ICD10: G47.33 Asx if off-supine with pt practicing positional therapy. Note with patient now falling within CMS criteria, his AHI would be 1.8 based on prior sleep study approximately 5 years ago (no weight gain since). That said the supine RDI was 45. Again, asx if off-supine. No changes in therapy at this timeand pt not wanting additional sleep study. 5. History of stroke - ICD9: V12.54, ICD10: Z86.73 No new focal neuro deficits per history and stable neuro exam. No changes in meds above including Plavix, statin, BP goal >140/90 and glucose goal <140. Hansel Ramsey MD Follow up 1 year or sooner prn. Again primary issue at this time appears to be of cardiac nature. I spent a total of 25 minutes on the date of the service which included preparing to see the patient, [id number] patient care, completing clinical documentation, obtaining and/or reviewing separately obtained history, performing a medically appropriate examination, counseling and educating the pat ient/family/caregiver, ordering medications, tests, or procedures, independently interpreting results (not separately reported), and communicating results to the patient/family/caregiver. documented in this encounterWestern [facility]12-30-[facility] History of Present illness Narrative* Hansel Ramsey Jr., MD - 02/09/2022 9:05 AM EST ESTABLISHED PATIENT VISIT CHIEF COMPLAINT: Follow Up HISTORY OF PRESENT ILLNESS: Trevor Coleman is a 72 year old male, BMI 30.98 kg/m2 with a PMH significant for and per last office visit on 05/08/21: 1. Orthostatic hypotension - ICD9: 458.0, ICD10: I95.1 (primary diagnosis) Stable. Symptoms not interfering with daily activities and sporadic. Extensive workup in the past. For now will continue to monitor. Encouraged hydration and slow positional changes. 2. History of stroke - ICD9: V12.54, ICD10: Z86.73 No new focal deficits. Continue with Plavix and statin. Needs lipid follow up with pcp as possible could lower statin dose if controlled. BP goal <140/90. Glucose goal <140. 3. Obstructive sleep apnea syndrome - ICD9: 327.23, ICD10: G47.33 No changes. Patient will continue with desire of positional therapy. States overall doing well except they are working on getting his thyroid back into an appropriate range per pt. Did have a brief episode of vertigo couple months back that last few seconds. Occurred right upon getting out of bed. No other symptoms. BP was stable at time of event -- 125/82 per pt. Pt shows me BPs for past month and consistently <140/90. No lightheadedness unless systolic falls around 110 or less. Always sleeps on side and denies any s/s of ASYA - I just cannot sleep on my back. REVIEW OF SYSTEMS GENERAL:No weight loss, malaise [...] - EXCEPT that as per HPI above. LAB/IMAGING: Those performed since patient's last visit have been reviewed. Patient will provide us labs later date - drawn at [facility] and not in [facility] or Care Everywhere. MEDICATIONS: levothyroxine (SYNTHROID) 137 mcg tablet Take 1 tablet by mouth once daily. hydroCHLOROthiazide (HYDRODIURIL, ESIDRIX) 12.5 mg tablet Take 12.5 mg by mouth twice daily. losartan (COZAAR) 50 mg tablet Take 50 mg by mouth as directed. 1/2 tablet in the AM & 1 tabletin the evening Reskbgzvtsjxz-Msmchekb-Jrbbhx (MULTIVITAMIN 50 PLUS) tab Take 1 tablet by mouth once daily. MAGNESIUM ORAL Take 500 mg by mouth once daily. clopidogrel (PLAVIX) 75 mg tablet Take 75 mg by mouth once daily. atorvastatin (LIPITOR) 40 mg tablet Take 1 tablet by mouth once daily. triamcinolone acetonide (KENALOG) 0.1 % cream Apply to affected area twice daily. Cholecalciferol, Vitamin D3, (VITAMIN D-3) 2,000 unit tab Take 1 tablet by mouth once daily. loratadine (CLARITIN) 10 mg tablet Take 10 mg by mouth once daily. levothyroxine (LEVOXYL) 175 mcg tablet Take 1 tablet by mouth once daily. Take on empty stomach. For thyroid. HISTORIES PAST MEDICAL HISTORY Diagnosis Date Hypertension Stroke (HCC) FAMILY HISTORY Problem Relation Age of Onset None Mother Heart Father BYPASS SOCIAL HISTORY Social History Tobacco Use Smoking status: Never Smokeless tobacco: Never Substance Use Topics Alcohol use: Yes Comment: rare Drug use: No PHYSICAL EXAMINATION BP 125/81 Pulse 71 Temp (!) 35.8 C (96.5 F) (Temporal) Resp 16 Wt 103.6 kg (228 lb 6.4 oz) SpO2 98% BMI 30.98 kg/m GENERAL EXAM: General appearance: NAD, pleasant. HEENT: NC/AT, nasal congestion absent, no oral lesions, membranes moist. NECK: No masses, supple. Lungs: CTA bilaterally. CV: RRR nl S1, S2 Extr: No cyanosis, clubbing or edema. Skin: Cool to touch. NEUROLOGICAL EXAM: General: Awake, alert, oriented x3 (person,place,time), speech fluent, no dysarthria; comprehension, naming, repetition intact. Fund of knowledge grossly normal. CN: PERRL, EOMI and without nystagmus, VFF to confrontation, facial sensation and strength are normal and symmetric, hearing is intact to finger rub bilaterally, palate and tongue movements are intact and symmetric. SCM and trapezius strength normal. Motor: Normal tone, bulk and strength (5/5) bilaterally (throughout extremities x4). Coordination: FNF, MATY, HTS intact. No tremors. Sensation: Light touch intact throughout. No evidence of neglect. Gait: Stable with normal stride and arm swing. Assessment and Plan: ASSESSMENT/PLAN: 1. Vertigo - ICD9: 780.4, ICD10: R42 (primary diagnosis) Brief episode last few seconds and associated with positional change. No associated focal neuro deficits. No elevation in BP. Overall history not suggestive of vascular event. Note that prior CTA in 2017 showed patent posterior circulation. Pt would prefer no additional workup at this time. Advisedpt that if symptoms recur and last more than a few seconds or are not associated with position change then to be evaluated in the ER for concerns of possible stroke or TIA. Again, pt on Plavix and statin. 2. Orthostatic hypotension - ICD9: 458.0, ICD10: I95.1 Stable. BP meds at times resulting in drops in BP to point that symptoms occur (sys <110). Encouraged hydration and slow positional changes as in the past. 3. Obstructive sleep apnea syndrome - ICD9: 327.23, ICD10: G47.33 Continue positional therapy. 4. History of stroke - ICD9: V12.54, ICD10: Z86.73 No new focal deficits. Again, vertigo by history likely peripheral nature. Continue Plavix, Statin,BP goal <140/90, Glucose goal <140. Pt advised what to do if concern for stroke symptoms including prolonged vertigo -- ER evaluation/911. Hansel Ramsey MD I spent a total of 35 minutes on the date of the service which included preparing to see the patient, [id number] patient care, completing clinical documentation, obtaining and/or reviewing separately obtained history, performing a medically appropriate examination, counseling and educating the pat ient/family/caregiver, and ordering medications, tests, or procedures. documented in this encounterWestern [facility]03-[facility] History of Present illness Narrative* Hansel Ramsey Jr., MD - 05/08/2021 3:43 PM EDT ESTABLISHED PATIENT VISIT CHIEF COMPLAINT: Follow Up HISTORY OF PRESENT ILLNESS: Trevor Coleman is a 71 year old male, BMI 30.38 kg/m2 with a PMH significant for and per last office visit note 08/08/20: 1. Orthostatic hypotension - ICD9: 458.0, ICD10: I95.1 (primary diagnosis) Asx. No presence of orthostatic changes on vitals during office visit. If Dr. Redmond feels BP meds need increased (and agree readings provided by patient today are frequently >140/90), would recommend slowly going up on Cozaar to 75mg and possibly 100mg. However, I have asked patient to follow upwith Dr. Del Valle who has been following HTN. No other recs at this time. 2. History of stroke - ICD9: V12.54, ICD10: Z86.73 No new symptoms. Continue Plavix and statin as taking. BP goal <140/90. Glucose goal <140. Encouraged exercise. 3. Obstructive sleep apnea syndrome - ICD9: 327.23, ICD10: G47.33 Patient not wanting additional workup or therapy. Continue positional therapy as he has been doing.Patient previously educated in depth on ASYA and effects on health. Patient reports everything is pretty much the same. Did go to the ER in November of 2020 -- did a bit more work than normal as left arm was cramping and BP was up. States had cardiac workup that was unremarkable. No symptoms since. Still feels lightheaded every now and then. States went on a vacation and if bends over a prolonged duration and stands back up, will feel dizzy. BPs reviewed and typically in 130s/80s. Note that lightheadedness is not daily. States feeling a bit better since thyroid med was adjusted. Went down on dosing. Sleeping ok. Snores if supine but states he cannot sleep supine. Syting on side through the night. No new stroke symptoms. Still on Plavix and statin. REVIEW OF SYSTEMS GENERAL:No weight loss, malaise or fevers. HEENT:Negative for frequent or significant headaches, No changes in hearing or vision, no nose bleeds or other nasal problems RESPIRATORY: Negative for cough, wheezing or shortness of breath. CARDIOVASCULAR: Negative for chest pain, leg swelling or palpitations (besides HPI) LAB/IMAGING: Those performed since patient's last visit [...] (no units) Date Value 08/11/2015 Negative MEDICATIONS: hydroCHLOROthiazide (HYDRODIURIL, ESIDRIX) 12.5 mg tablet Take 12.5 mg by mouth twice daily. losartan (COZAAR) 50 mg tablet Take 50 mg by mouth once daily. loratadine (CLARITIN) 10 mg tablet Take 10 mg by mouth once daily. Iixxmchkrluew-Ufwpwvbv-Wihhez (MULTIVITAMIN 50 PLUS) tab Take 1 tablet by mouth once daily. MAGNESIUM ORAL Take by mouth. clopidogrel (PLAVIX) 75 mg tablet Take 75 mg by mouth once daily. atorvastatin (LIPITOR) 40 mg tablet Take 1 tablet by mouth once daily. levothyroxine (LEVOXYL) 175 mcg tablet Take 1 tablet by mouth once daily. Take on empty stomach. For thyroid. triamcinolone acetonide (KENALOG) 0.1 % cream Apply to affected area twice daily. Cholecalciferol, Vitamin D3, (VITAMIN D-3) 2,000 unit tab Take 1 tablet by mouth once daily. HISTORIES PAST MEDICAL HISTORY Diagnosis Date Hypertension Stroke (HCC) FAMILY HISTORY Problem Relation Age of Onset None Mother Heart Father BYPASS SOCIAL HISTORY Social History Tobacco Use Smoking status: Never Smoker Smokeless tobacco: Never Used Substance Use Topics Alcohol use: Yes Comment: rare Drug use: No PHYSICAL EXAMINATION BP 132/78 Pulse 72 Temp 36.8 C (98.2 F) Resp 18 Wt 101.6 kg (224 lb) SpO2 99% BMI 30.38kg/m GENERAL EXAM: General appearance: NAD, pleasant. HEENT: NC/AT, , membranes moist. NECK: ROM nml. Lungs: CTA bilaterally. CV: RRR nl S1, S2. Extr: No cyanosis, clubbing or edema. Skin: Cool to touch. NEUROLOGICAL EXAM: General: Awake, alert, oriented x3 (person,place,time), speech fluent, no dysarthria; comprehension, naming, repetition intact. CN: PERRL, EOMI and without nystagmus, VFF to confrontation, facial sensation and strength are normal and symmetric, hearing is intact, palate and tongue movements are intact and symmetric. SCM and trapezius strength normal. Motor: Normal tone, bulk and strength (5/5) bilaterally (throughout extremities x4). Coordination: FNF, MATY, HTS intact. No tremors. Sensation: Light touch intact throughout. No evidence of neglect. Gait: Stable with normal stride and arm swing. Assessment and Plan: ASSESSMENT/PLAN: 1. Orthostatic hypotension - ICD9: 458.0, ICD10: I95.1 (primary diagnosis) Stable. Symptoms not interfering with daily activities and sporadic. Extensive workup in the past. For now will continue to monitor. Encouraged hydration and slow positional changes. 2. History of stroke - ICD9: V12.54, ICD10: Z86.73 No new focal deficits. Continue with Plavix and statin. Needs lipid follow up with pcp as possible could lower statin dose if controlled. BP goal <140/90. Glucose goal <140. 3. Obstructive sleep apnea syndrome - ICD9: 327.23, ICD10: G47.33 No changes. Patient will continue with desire of positional therapy. Hansel Ramsey MD I spent a total of 30+ minutes on the date of the service which included preparing to see the patient, [id number] patient care, completing clinical documentation, obtaining and/or reviewing separately obtained history, performing a medically appropriate examination and counseling and educating the patient/family/caregiver. documented in this encounterWestern [facility]11-[facility] Evaluation note* Diagnosis Onset Date Resolution Status Cryptogenic stroke chronic History of loop recorder December 13, 2017 chronic [facility] Work Phone: [phone]) 392-451811-02-2018 Evaluation note* Diagnosis Onset Date Resolution Status Essential (primary) hypertension chronic History of loop recorder December 13, 2017 chronic HLD (hyperlipidemia) chronic [facility] Work Phone: [phone]) 632-456306-08-2010 History of Past illness Narrative* Problem Noted Date Resolved Date Hypothyroidism 07/19/2009 11/09/2009 Hyperthyroidism 03/31/2009 11/09/2009 documented as of this encounter (statuses as of 05/08/2021) [facility] of [facility] illness Narrative* Problem Noted Date Resolved Date Hypothyroidism 07/19/2009 11/09/2009 Hyperthyroidism 03/31/2009 11/09/2009 documented as of this encounter (statuses as of 02/14/2022) [facility] of Past illness Narrative* Problem Noted Date Diagnosed Date Resolved Date Hypothyroidism 07/19/2009 11/09/2009 Hyperthyroidism 03/31/2009 11/09/2009 documented as of this encounter (statuses as of 08/21/2022) [facility] Diagnosis Orthostatic hypotension- Primary History of stroke Transient ischemic attack (TIA), and cerebral infarction without residual deficits Obstructive sleep apnea syndrome Obstructive sleep apnea (adult) (pediatric) documented in this encounter [facility]* Diagnosis Onset Date Resolution Status Cryptogenic stroke chronic Essential (primary) hypertension chronic Hemorrhoids acute Personal history of colonic polyps acute [facility] Work Phone: Evaluation note* Diagnosis Vertigo- Primary Dizziness and giddiness Orthostatic hypotension Obstructive sleep apnea syndrome Obstructive sleep apnea (adult) (pediatric) History of stroke Transient ischemic attack (TIA), and cerebral infarction without residual deficits [facility] this encounter [facility] noteNo assessment information availableWooGlenbe[facility] Work Phone: Evaluation note* Diagnosis Bradycardia- Primary Other specified cardiac dysrhythmias Lightheaded Dizziness and giddiness Vertigo Dizziness and giddiness Obstructive sleep apnea syndrome Obstructive sleep apnea (adult) (pediatric) History of stroke Transient ischemic attack (TIA), and cerebral infarction without residual deficits documented [facility] this encounter [facility]* Diagnosis Onset Date Resolution Status Bradycardia acute Cryptogenic stroke chronic Essential (primary) hypertension chronic [facility] Work Phone: Evaluation note* Diagnosis Lightheaded- Primary Dizziness and giddiness Vertigo Dizziness and giddiness Obstructive sleep apnea syndrome Obstructive sleep apnea (adult) (pediatric) History of stroke Transient ischemic attack (TIA), and cerebral infarction without residual deficits [facility] Diagnosis Postablative hypothyroidism- Primary Other postablative hypothyroidism Lightheaded- Primary Dizziness and giddiness Obstructive sleep apnea syndrome Obstructive sleep apnea (adult) (pediatric) History of stroke Transient ischemic attack (TIA), and cerebral infarction without residual deficits Irregular heart rhythm Cardiac dysrhythmia, unspecified [facility] Diagnosis Postablative hypothyroidism- Primary Other postablative hypothyroidism Ventricular premature beats- Primary Other premature beats [facility] Diagnosis Postablative hypothyroidism- Primary Other postablative hypothyroidism Chest pain, unspecified type- Primary [facility]* Diagnosis Postablative hypothyroidism- Primary Other postablative hypothyroidism Chest pain, unspecified type [facility] Additional Instructions Follow-up with your veterans services specialist. Return back to the ED if symptoms change or worsen.[facility] Work Phone: Reason for referral (narrative)No reason for referral information availableWooster [facility] Work Phone: Summary Purpose Family History No Family History Records Found Relationship Condition Age at Onset Recorded Date/T milli Not Specified Psychiatric care Unknown Malignant neoplasm of skin Unknown Disorder of intestine Unknown Arthritis Unknown Anxiety and depression Unknown mother Cerebrovascular accident (CVA) Unknown Malignant neoplasm Unknown Malignant neoplasm of colon Unknown Disorder of thyroid Unknown father Cardiac disease Unknown Hypertension Unknown Diabetes mellitus Unknown brother Myocardial infarction Unknown Advance Directives No Advanced Directives Records FoundDocuments on File Type Date Recorded 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 Advance Directive(s) Advance Directive Response Recorded Date/ Time Advance Directives Yes October 1:10pm Living Will No November 29 10:55am Power of Drawing In Machine Tender No November 29, 2020 10:55am Advance Directive Response Recorded Date/ Time Advance Directives Yes October 12:10pm Living Will No November 29 9:55am Power of Drawing In Machine Tender No November 29, 2020 9:55am Advance Directive Response Recorded Date/ Time Advance Directives Yes October 1:10pm Living Will Yes February 15 10:31am Power of Drawing In Machine Tender Yes February 15 023 10:31am Advance Directive Response Recorded Date/ Time Advance Directives Yes October 12:10pm Living Will Yes February 15 9:31am Power of Drawing In Machine Tender Yes February 15 9:31am Advance Directive Response Recorded Date/ Time Living Will Yes February 15 10:31am Do you have a Healthcare Power of Drawing In Machine Tender? Yes February 15, 2022 10:31am Advance Directives Yes October 1:10pm Advance Directive Response Recorded Date/ Time Living Will Yes February 15 10:31am Do you have a Healthcare Power of Drawing In Machine Tender? Yes February 15, 2022 10:31am Do you have a Healthcare Power of Drawing In Machine Tender? Yes July 13, 2024 7:59pm Advance Directives Yes October 1:10pm Chief Complaint and Reason for Visit Chief Complaint REMOTE CHECK Reason for Visit Cryptogenic stroke History of loop recorder Right bundle branch block Chief Complaint 6 M FU Reason for Visit Essential (primary) hypertension History of loop recorder HLD (hyperlipidemia) Chief Complaint 6 M FU CSCOPE Reason for Visit Cryptogenic stroke Essential (primary) hypertension Hemorrhoids Personal history of colonic polyps Chief Complaint LABS Chief Complaint LABS 9 M FU Reason for Visit Bradycardia Cryptogenic stroke Essential (primary) hypertension Chief Complaint Admit Date 1 Y FU April 27, 2024 1:2 4pm Reason for Visit Admit Date Bradycardia April 27, 2024 1:2 4pm CVA (cerebral vascular accident) April 112024 1:24pm Essential (primary) hypertension April 112024 1:24pm Chief Complaint Admit Date 1 Y FU April 27, 2024 1:2 4pm Gastroesophageal reflux disease (GERD) M ay 2024 2:19pm LEFT SHOULDER June 18, 2024 2:07pm Room June 18, 2024 2:14pm dizziness July 13, 2024 7:15p m Reason for Visit Admit Date Bradycardia April 27, 2024 1:2 4pm CVA (cerebral vascular accident) April 112024 1:24pm Essential (primary) hypertension April 112024 1:24pm Eructation June 16, 2024 2:19pm Gastroesophageal reflux disease June 16, 2024 2:19pm Left shoulder pain June 18, 2024 2:07pm Chief Complaint Admit Date 1 Y FU April 27, 2024 1:2 4pm Gastroesophageal reflux disease (GERD) M ay 2024 2:19pm LEFT SHOULDER June 18, 2024 2:07pm Room June 18, 2024 2:14pm dizziness July 13, 2024 7:15p m S/P [facility] 07/14July 16, 2024 1:47p m Reason for Visit Admit Date Bradycardia April 27, 2024 1:2 4pm CVA (cerebral vascular accident) April 112024 1:24pm Essential (primary) hypertension April 112024 1:24pm Eructation June 16, 2024 2:19pm Gastroesophageal reflux disease June 16, 2024 2:19pm Left shoulder pain June 18, 2024 2:07pm Bradycardia July 16, 2024 1:47p m Frequent unifocal PVCs July 16, 2024 1: 47pm CVA (cerebral vascular accident) July 1:47pm Essential (primary) hypertension July 1:47pm Chief Complaint Admit Date 1 Y FU April 27, 2024 1:2 4pm Gastroesophageal reflux disease (GERD) M ay 2024 2:19pm LEFT SHOULDER June 18, 2024 2:07pm Room 6 June 18, 2024 2:14pm dizziness July 13, 2024 7:15p m S/P [facility] 07/14July 16, 2024 1:47p m Ventricular premature depolarization Jul 1:40pm Reason for Visit Admit Date Bradycardia April 27, 2024 1:2 4pm CVA (cerebral vascular accident) April 112024 1:24pm Essential (primary) hypertension April 112024 1:24pm Eructation June 16, 2024 2:19pm Gastroesophageal reflux disease June 16, 2024 2:19pm Left shoulder pain June 18, 2024 2:07pm Bradycardia July 16, 2024 1:47p m CVA (cerebral vascular accident) July 1:47pm Essential (primary) hypertension July 1:47pm Frequent unifocal PVCs July 16, 2024 1: 47pm Chief Complaint Admit Date 1 Y FU April 27, 2024 1:2 4pm Gastroesophageal reflux disease (GERD) M ay 2024 2:19pm LEFT SHOULDER June 18, 2024 2:07pm Room 6 June 18, 2024 2:14pm dizziness July 13, 2024 7:15p m S/P [facility] 07/14July 16, 2024 1:47p m Ventricular premature depolarization Jul 1:40pm review test August 04, 2024 7:45 am Reason for Visit Admit Date Bradycardia April 27, 2024 1:2 4pm CVA (cerebral vascular accident) April 112024 1:24pm Essential (primary) hypertension April 112024 1:24pm Eructation June 16, 2024 2:19pm Gastroesophageal reflux disease June 16, 2024 2:19pm Left shoulder pain June 18, 2024 2:07pm Bradycardia July 16, 2024 1:47p m CVA (cerebral vascular accident) July 1:47pm Essential (primary) hypertension July 1:47pm Frequent unifocal PVCs July 16, 2024 1: 47pm Bradycardia August 04, 2024 7:45 am CVA (cerebral vascular accident) August 042024 7:45am Essential (primary) hypertension August 042024 7:45am HLD (hyperlipidemia) August 04, 2024 7:4 5am Frequent unifocal PVCs August 04, 2024 7 :45am Reason for Referral Specialty Diagnoses / Procedures Referred By Contac t Referred To Contact Diagnoses Bradycardia Lightheaded Procedures CONSULT TO CARDIOLOGY OFFICE/OUTPATIENT NEW HIGH MDM 60-74 MINUTES Hansel Ramsey Jr., MD [address] [facility] [address] [place] [address] Referral ID Status Reason Start Date Expiration Date Visits Requested Visits Authorized [id number] Authorized PCP Requested Referral 08/20/2022 08/20/2023 1 1 Additional Source Comments (unrecognized sect ion and content) No Status Records FoundNo Status Records FoundNo Status Records FoundNo Status Records Found INFORMATION SOURCE (unrecogn ized section and content) DATE CREATED AUTHOR 02/12/2018 [facility] DATE CREATED AUTHOR AUTHOR'S ORGANIZ ATION 01/21/2020 [facility] DATE CREATED AUTHOR AUTHOR'S ORGANIZ ATION 08/20/2024 [facility] DATE CREATED AUTHOR AUTHOR'S ORGANIZ ATION 08/24/2024 [facility] Source Comments (unrecognize d section and content) In the event this informatio n is protected by the Federal Confidentiality of Alcohol and Drug Abuse Patient Records regulations: The Federal rules restrict any use of the information to criminally investigate or prosecute any alcohol or drug abuse patient.[facility] the event this information is protected by the Federal Confidentiality of Alcohol and Drug Abuse Patient Records regulations: The Federal rules restrict any use of the information to criminally investigate or prosecute any alcohol or drug abuse patient.[facility] the event this information is protected by the Federal Confidentiality of Alcohol and Drug Abuse Patient Records regulations: The Federal rules restrict any use of the information to criminally investigate or prosecute any alcohol or drug abuse patient.[facility] the event this information is protected by the Federal Confidentiality of Alcohol and Drug Abuse Patient Records regulations: The Federal rules restrict any use of the information to criminally investigate or prosecute any alcohol or drug abuse patient.[facility] the event this information is protected by the Federal Confidentiality of Alcohol and Drug Abuse Patient Records regulations: The Federal rules restrict any use of the information to criminally investigate or prosecute any alcohol or drug abuse patient.[facility] the event this information is protected by the Federal Confidentiality of Alcohol and Drug Abuse Patient Records regulations: The Federal rules restrict any use of the information to criminally investigate or prosecute any alcohol or drug abuse patient.[facility] the event this information is protected by the Federal Confidentiality of Alcohol and Drug Abuse Patient Records regulations: The Federal rules restrict any use of the information to criminally investigate or prosecute any alcohol or drug abuse patient.[facility] the event this information is protected by the Federal Confidentiality of Alcohol and Drug Abuse Patient Records regulations: The Federal rules restrict any use of the information to criminally investigate or prosecute any alcohol or drug abuse patient.[facility] the event this information is protected by the Federal Confidentiality of Alcohol and Drug Abuse Patient Records regulations: The Federal rules restrict any use of the information to criminally investigate or prosecute any alcohol or drug abuse patient.[facility] the event this information is protected by the Federal Confidentiality of Alcohol and Drug Abuse Patient Records regulations: The Federal rules restrict any use of the information to criminally investigate or prosecute any alcohol or drug abuse patient.[facility] the event this information is protected by the Federal Confidentiality of Alcohol and Drug Abuse Patient Records regulations: The Federal rules restrict any use of the information to criminally investigate or prosecute any alcohol or drug abuse patient.[facility] the event this information is protected by the Federal Confidentiality of Alcohol and Drug Abuse Patient Records regulations: The Federal rules restrict any use of the information to criminally investigate or prosecute any alcohol or drug abuse patient.[facility] Reason for Visit (unrecogniz ed section and content) Reason Comments Established NI Patient Follow up Stroke Reason Comments Follow Up Orthostatic hypotens ion, HX of stroke, ASYA Reason Comments Follow Up Reason Comments Follow Up Follow up, intermitt ent vertigo denied [place]. Reason Comments Follow Up Yearly ASYA and Verti go follow up, patient states his BP readings seem to be increasing slightly over the past year, ASYA seems to be well controlled with positional therapy, Vertigo same as it has always been Reason Comments Radiology CT Reason Comments Radiology NM Specialty Diagnoses / Procedures Referred By Tali t Referred To Contact [facility] Diagnoses Chest pain, unspecified type Procedures NM CARDIAC PERF STRESS/PHARM MYOCARDIAL SPECT MULTIPLE STUDIES Fernanda Warren MD [address] [place] [address] Phone: tel: fax: [facility] [address] [place] [address] Phone: tel: Referral ID Status Reason Start Date Expiration Date V isits Requested Visits Authorized [id number] Closed Auto-Generate d Referral 08/17/2024 09/12/2025 1 1 Care Teams (unrecognized sec tion and content) Customer Service Engineer Relationship Specialty Start Date End Date Liseth Del Valle DO [address] [place], [place] [phone] PCP - General Family Practice 07/09/17 Customer Service Engineer Relationship Specialty Start Date End Date Liseth Del Valle DO [address] [place], [place] [phone] PCP - General Family Medicine 07/09/17 Team Status: Active Member Role Status Dates Dr. Liseth Del Valle DO Family Provider Active Dr. Liseth Del Valle DO Primary Care Provider Active Team Status: Inactive Member Role Status Dates Dr. Liseth Del Valle DO Primary Care Provide r, Attending Provider, Referring Provider Active Customer Service Engineer Relationship Specialty Start Date End Date Liseth Del Valle DO [address] [place], [place] [phone] PCP - General Family Medicine 07/09/17 Team Status: Inactive Member Role Status Dates Dr. Liseth Del Valle DO Primary Care Provider, Referring P tiffanie Active Areli Ludwig PA, PA Attending Provider Active Customer Service Engineer Relationship Specialty Start Date End Date Liseth Del Valle DO [address] [place], [place] [phone] PCP - General Family Medicine 5/29/18 Team Status: Active Member Role Status Dates Dr. Liseth Del Valle DO Primary Care Provider Active Team Status: Inactive Member Role Status Dates Dr. Liseth Del Valle DO Primary Care Provider Active Start: April 25, 2024 End: April 25, 2024 Dr. Liseth Del Valle DO Attending Provider Active St art: April 25, 2024 End: April 25, 2024 Dr. Liseth Del Valle DO Referring Provider Active St art: April 25, 2024 End: April 25, 2024 Team Status: Inactive Member Role Status Dates Dr. Liseth Del Valle DO Primary Care Provider Active Start: April 27, 2024 End: April 27, 2024 Dr. Liseth Del Valle DO Referring Provider Active St art: April 27, 2024 End: April 27, 2024 RANDY Farmer Attending Provider Active St art: April 27, 2024 End: April 27, 2024 Team Status: Inactive Member Role Status Dates Dr. Liseth Del Valle DO Primary Care Provider Active Start: June 16, 2024 End: June 16, 2024 Dr. Liseth Del Valle DO Referring Provider Active St art: June 16, 2024 End: June 16, 2024 RANDY Gomez Attending Provider Active Start: June 16, 2024 End: June 16, 2024 Team Status: Inactive Member Role Status Dates Dr. Liseth Del Valle DO Primary Care Provider Active Start: June 18, 2024 End: June 18, 2024 Dr. Liseth Del Valle DO Referring Provider Active St art: June 18, 2024 End: June 18, 2024 Avery Hu MD Attending Provider Active St art: June 18, 2024 End: June 18, 2024 Team Status: Inactive Member Role Status Dates Dr. Liseth Del Valle DO Primary Care Provider Active Start: June 18, 2024 End: June 18, 2024 Dr. Henry Redmond MD Attending Provider Active S tart: June 18, 2024 End: June 18, 2024 Team Status: Inactive Member Role Status Dates Dr. Liseth Del Valle DO Primary Care Provider Active Start: July 13, 2024 End: July 13, 2024 Dr. Shaheen Prajapati DO Emergency Provider Activ e Start: July 13, 2024 End: July 13, 2024 Customer Service Engineer Relationship Specialty Start Date End Date Liseth Del Valle DO [address] [place], [place] [address] PCP - General Family Medicine 07/09/17 Team Status: Inactive Member Role Status Dates Dr. Liseth Del Valle DO Primary Care Provider Active Start: July 16, 2024 End: July 16, 2024 Dr. Liseth Del Valle DO Referring Provider Active St art: July 16, 2024 End: July 16, 2024 Akira Ramon TANDEM MILL STICKER, TANDE[employer] M[employer] STICKER-C Attending Provider Active S tart: July 16, 2024 End: July 16, 2024 Customer Service Engineer Relationship Specialty Start Date End Date Liseth Del Valle DO [address] [place] [address] PCP - General Family Medicine 07/09/17 Customer Service Engineer Relationship Specialty Start Date End Date Liseth Del Valle DO [address] [place] [place], [place] [address] PCP - General Family Medicine 07/09/17 Customer Service Engineer Relationship Specialty Start Date End Date Liseth Del Valle DO [address] [place] [address] PCP - General Family Medicine 07/09/17 Team Status: Inactive Member Role Status Dates Dr. Liseth Del Valle DO Primary Care Provider Active Start: July 13, 2024 End: July 13, 2024 Dr. Shaheen Prajapati , Attending Provider Activ e Start: July 13, 2024 End: July 13, 2024 Dr. Shaheen Prajapati , DO Emergency Provider Activ e Start: July 13, 2024 End: July 13, 2024 Team Status: Inactive Member Role Status Dates Dr. Liseth Del Valle DO Primary Care Provider Active Start: July 23, 2024 End: July 23, 2024 Akira Ramon [employer] STICKER, [employer] STICKER-C Attending Provider Active S tart: July 23, 2024 End: July 23, 2024 Akira Ramon TANDE[employer] MILL STICKER, T[employer]DE[employer] STICKER-C Referring Provider Active S tart: July 23, 2024 End: July 23, 2024 Team Status: Active Member Role Status Dates Dr. Liseth Del Valle DO Primary Care Provider Active Start: July 29, 2024 Dr. Liseth Del Valle DO Attending Provider Active St art: July 29, 2024 Dr. Liseth Del Valle DO Referring Provider Active St art: July 29, 2024 Team Status: Inactive Member Role Status Dates Dr. Liseth Del Valle DO Primary Care Provider Active Start: July 29, 2024 End: July 29, 2024 Dr. Liseth Del Valle DO Attending Provider Active St art: July 29, 2024 End: July 29, 2024 Dr. Liseth Del Valle DO Referring Provider Active St art: July 29, 2024 End: July 29, 2024 Team Status: Inactive Member Role Status Dates Dr. Liseth Del Valle DO Primary Care Provider Active Start: August 04, 2024 End: August 04, 2024 Dr. Liseth Del Valle DO Referring Provider Active St art: August 04, 2024 End: August 04, 2024 Akira Ramon [employer]DE[employer] M[employer] STICKER, TANDE[employer] MILL STICKER-C Attending Provider Active S tart: August 04, 2024 End: August 04, 2024 Customer Service Engineer Relationship Specialty Start Date End Date Liseth Del Valle DO [address] [place], [place] [phone] PCP - General Family Medicine 07/09/17 Customer Service Engineer Relationship Specialty Start Date End Date Liseth Del Valle DO [address] [place], [place] [phone] PCP - General Family Medicine 07/09/17 Customer Service Engineer Relationship Specialty Start Date End Date Liseth Del Valle DO [address] [place], [place] [phone] PCP - General Family Medicine 07/09/17 Goals (unrecognized section and content) Goals may be documented in a n alternate sectionGoals may be documented in an alternate sectionGoals may be documented in an alternate sectionGoals may be documented in an alternate sectionGoals may be documented in an alternate sectionGoals may be documented in an alternate sectionGoals may be documented in an alternate sectionGoals may be documented in an alternate sectionGoals may be documented in an alternate sectionGoals may be documented in an alternate sectionGoals may be documented in an alternate sectionGoals may be documented in an alternate section FOR RECORDS PERTAINING TO PATIENTS WHO ARE OR HAVE BEEN ENROLLED IN A CHEMICAL DEPENDENCY/SUBSTANCEABUSE PROGRAM, SOME INFORMATION MAY BE OMITTED. This clinical summary was aggregated from multiple sources. Caution should be exercised in using it in the provision of clinical care. This summary normalizes information from multiple sources, and as a consequence, information in this document may materially change the coding, format and clinical context of patient data. In addition, data may be omitted in some cases. CLINICAL DECISIONS SHOULD BE BASED ON THE PRIMARY CLINICAL RECORDS. [employer] [facility]. provides no warranty or guarantee of the accuracy or completeness of information in this document.
[2024-08-24] MEDS: Lactated Ringers 1,000 ML 15 ML IV (07:05)
--- NOTE | 2024-08-24 07:12 | PCM.HP.STD ---
[facility] - General General Date of Admission: 08/24/24 Date of Service: 08/24/24 Chief Complaint: Excessive belching HPI Narrative DONNA COLEMAN, is a 74 M who presents with the Chief Complaint: excessive eructation Pt has been having increased eructation over the past year. This is happening mostly after eating a meal and at night time. It will wake him up when he is sleeping on occasion. He has been on PPI therapy about 6 months ago which gave him constipation and did not helped with his burping. He has tried sleeping on his right side and up right with little benefit. His last colonoscopy was about [address] Baltazar. He has never had an EGD before. He denies abd pain, constipation, diarrhea, heartburn or n/v. [facility] Medical History Gastric reflux History of normal Holter exam History of stress test History of irregular heartbeat Left shoulder pain Wears glasses Arthritis High cholesterol Back pain TIA (transient ischemic attack) Stroke/cerebrovascular accident Syncope Non-smoker Leg cramps History of echocardiogram Cardiology follow-up encounter Hemorrhoids Open fracture of distal phalanx of left middle finger Open fracture of distal phalanx of left index finger Laceration of left middle finger without foreign body with damage to nail Contact with powered saw as cause of accidental injury Laceration of left index finger without foreign body with damage to nail Injury of nail bed of finger of left hand Hypertension Cryptogenic stroke Obesity Rectal bleed Hypothyroidism Lightheadedness Right bundle branch block Essential (primary) hypertension HLD (hyperlipidemia) CVA (cerebral vascular accident) (10/2017) Home Medications ?Medication ?Instructions ?Recorded ?Last Taken ?Type clopidogrel 75 mg tablet 75 mg PO DAILY #30 tabs 10/28/17 08/17/24 Rx cholecalciferol (vitamin D3) 50 2,000 unit PO DAILY 11/27/17 10/21/18 History mcg (2,000 unit) capsule multivitamin 1 tab PO DAILY 11/27/17 10/21/18 History atorvastatin 40 mg tablet 40 mg PO DAILY 05/25/19 Unknown History magnesium oxide 500 mg capsule 500 mg PO DAILY 05/25/19 Unknown History hydrochlorothiazide 12.5 mg tablet 12.5 mg PO BID 12/21/21 Unknown History lactobacillus combination no.9 4 4,000 mmu cells PO DAILY 12/21/21 Unknown History billion cell capsule (Adult 50 Plus Probiotic) levothyroxine 137 mcg tablet 137 mcg PO DAILY 12/21/21 08/24/24 History losartan 50 mg tablet 50 mg PO DAILY 30 days #30 tabs 06/16/24 08/24/24 History hydrocortisone 2.5 % topical cream 1 applic topical BID PRN itching 07/16/24 Unknown History loratadine 10 mg tablet 10 mg PO QDAY PRN allergy symptoms 07/16/24 Unknown History saw palmetto 450 mg capsule 450 mg PO QDAY 07/16/24 Unknown History Allergy/AdvReac Type Severity Reaction Status Date / Time adhesive tape Allergy Mild Unknown Verified 08/24/24 06:53 methimazole (From Tapazole) Allergy Mild Unknown Verified 08/24/24 06:53 Sulfa (Sulfonamide Allergy PT CAN'T Verified 08/24/24 06:53 Antibiotics) REMEMBER Family History Mother CVA (cerebral vascular accident) Cancer Colon cancer Thyroid disorder Father Heart disease Hypertension Cancer Diabetes Brother Myocardial infarction from [place] Other Anxiety and depression Arthritis Bowel disease Psychiatric care Skin cancer Surgical History Hx of colonoscopy Hx of eye surgery History of loop recorder (12/13/17) History of carpal tunnel release Hx of LASIK H/O knee surgery History of tonsillectomy Social History Smoking Status: Never smoker second hand exposure: No alcohol intake: never substance use type: does not use caffeine: Yes frequency: does not exercise seatbelt use: always additional social history: DOES NOT USE ASPIRIN DOES NOT USE IBUPROFEN ROS Constitutional Constitutional: Denies fatigue, fever(s), poor appetite, weight gain or weight loss Gastrointestinal Gastrointestinal: Denies belching, bloating, change in bowel habits, change in stool character, chewing difficulty, coffee ground emesis, constipation, cramping, diarrhea, dyspepsia, dysphagia, early satiety, excessive flatus, fecal incontinence, heartburn, hematemesis, hematochezia, hemorrhoids, loose stools, melena, nausea, odynophagia, rectal bleeding, tenesmus, vomiting or weight changes Vital Signs Vital Signs Vital Signs: 08/24/24 06:56 08/24/24 06:56 Temperature 97.0 F L Temperature Source Temporal Pulse Rate 54 L Respiratory Rate 16 Respiratory Pattern Normal Blood Pressure 148/70 H Blood Pressure Mean 96 Blood Pressure Source Monitor Blood Pressure Position Semi-Fowlers Blood Pressure Location Right Arm Pulse Ox 98 Oxygen Delivery Method Room Air Weight Weight: 218 lb 4.122 oz Body Mass Index (BMI) 29.6 Physical Exam Const alert, oriented x3, no apparent distress and healthy appearing General Appearance: cooperative GI normal to inspection, nondistended, normoactive bowel sounds, soft to palpation, non-tender and non-distended Percussion: normal to percussion Rectal Exam: deferred Assessment & Plan Assessment/Plan (1) Eructation: PLAN: Assessment and Plan Assessment and Plan (1) Gastroesophageal reflux disease: (2) Eructation: Status: Acute Plan: This is a 74 yo male pt here today for evaluation of excessive eructation x 1 year. Pt denies all other GI symptoms including heartburn. He did a trial of omeprazole but did not notice any relief. He discontinued due to constipation. He will undergo EGD to assess his upper GI tract for inflammation. Will consider treatment with PPI or PCAB pending results. -EGD -Consider PPI or PCAB -F/u after procedure
--- NOTE | 2024-08-24 07:30 | EGD_PTH ---
PATIENT: DONNA COLEMAN LOC: EN U#:[id number] AGE/SX: 74/M ROOM: RE08/24/[address]: Dr. Alberto Ferguson DO : 1950 BED: DIS: 08/24/2024 SPEC #: [id number] RECD: 08/24/24 09:50 STATUS: EDI GALI #: [id number] TESSY: 08/24/24 07:[address]: Alberto Ferguson DEPT: SURGICAL PATHOLOGY RECD BY: Lalit Brennan ENTERED: 08/24/24 11:13 SP TYPE: EGD BIOPSY MAGALI DR: Dr. Liseth Del Valle DO Tissues: A - Duodenum, NOS B - Gastric mucous membrane C - Esophagus, NOS Procedures: Immunohistochemical Stains Surgery Specimen Level IV HEADER OPERATION: EGD, biopsy PRE-OP DIAGNOSIS: Eructation TISSUE SUBMITTED: A- Duodenum biopsy, B- Gastric body biopsy, C- Distal esophagus biopsy MICROSCOPIC DIAGNOSIS A. Small intestine, duodenum, biopsies: - Benign duodenal mucosa without active inflammation B. Stomach, gastric body: * Oxyntic mucosa with slight chronic inflammation * An immunohistochemical stain for Helicobacter pylori is negative C. Distal esophagus: * Benign squamous epithelium without active inflammation * No gastric mucosa is identified MICROSCOPIC DESCRIPTION Slides are reviewed. All matched controls reacted appropriately. These tests were developed and their performance characteristics determined by [facility]. They may not have been cleared or approved by the U.S. Food and Drug Administration. The FDA has determined that such clearance or approval is not necessary. The above immunohistochemical/dualISH markers have been interpretated by the Pathologist. GROSS DESCRIPTION A. Received in fixative is one container labeled with the patient's name and designated Duodenum biopsy. The specimen consists of two irregular fragments of light frias soft tissue, each measuring 0.4 cm. The specimen is totally submitted in one cassette. B. Received in fixative is one container labeled with the patient's name and designated Gastric body biopsy. The specimen consists of two irregular fragments of light frias soft tissue that in aggregate measure 0.2 and 0.5 cm. The specimen is totally submitted in one cassette. C. Received in fixative is one container labeled with the patient's name and designated Distal esophagus biopsy. The specimen consists of multiple irregular fragments of light frias soft tissue that in aggregate measure <0.1 to 0.4 cm. The specimen is totally submitted in one cassette. Alyse 08/24/2024 CPT:47160m9,40255
--- NOTE | 2024-08-24 07:30 | EGD_PTH ---
PATIENT: DONNA COLEMAN LOC: EN U#:[id number] AGE/SX: 74/M ROOM: RE08/24/[address]: Dr. Alberto Ferguson DO : 1950 BED: DIS: 08/24/2024 SPEC #: [id number] RECD: 08/24/24 09:50 STATUS: EDI GALI #: [id number] TESSY: 08/24/24 07:[address]: Alberto Ferguson DEPT: SURGICAL PATHOLOGY RECD BY: Lalit Brennan ENTERED: 08/24/24 11:13 SP TYPE: EGD BIOPSY MAGALI DR: Dr. Liseth Del Valle DO Tissues: A - Duodenum, NOS B - Gastric mucous membrane C - Esophagus, NOS Procedures: Immunohistochemical Stains Surgery Specimen Level IV HEADER OPERATION: EGD, biopsy PRE-OP DIAGNOSIS: Eructation TISSUE SUBMITTED: A- Duodenum biopsy, B- Gastric body biopsy, C- Distal esophagus biopsy MICROSCOPIC DIAGNOSIS A. Small intestine, duodenum, biopsies: - Benign duodenal mucosa without active inflammation B. Stomach, gastric body: * Oxyntic mucosa with slight chronic inflammation * An immunohistochemical stain for Helicobacter pylori is negative C. Distal esophagus: * Benign squamous epithelium without active inflammation * Cardiac mucosa with goblet cell metaplasia and without dysplasia, suggesting Lennon's esophagus MICROSCOPIC DESCRIPTION Slides are reviewed. All matched controls reacted appropriately. These tests were developed and their performance characteristics determined by [facility]. They may not have been cleared or approved by the U.S. Food and Drug Administration. The FDA has determined that such clearance or approval is not necessary. The above immunohistochemical/dualISH markers have been interpretated by the Pathologist. GROSS DESCRIPTION A. Received in fixative is one container labeled with the patient's name and designated Duodenum biopsy. The specimen consists of two irregular fragments of light frias soft tissue, each measuring 0.4 cm. The specimen is totally submitted in one cassette. B. Received in fixative is one container labeled with the patient's name and designated Gastric body biopsy. The specimen consists of two irregular fragments of light frias soft tissue that in aggregate measure 0.2 and 0.5 cm. The specimen is totally submitted in one cassette. C. Received in fixative is one container labeled with the patient's name and designated Distal esophagus biopsy. The specimen consists of multiple irregular fragments of light frias soft tissue that in aggregate measure <0.1 to 0.4 cm. The specimen is totally submitted in one cassette. GRACE/ 08/24/2024 CPT:52628i3,66409
--- NOTE | 2024-08-24 07:37 | PCM.PRE.AN2 ---
ASA Classification* ASA Classification ASA Classification: 3 Assessment & Plan Anesthesia* Anesthesia Assessment Anesthesia Assessment: Discussed sedation and/or anesthesia options, risks, benefits, and alternatives with patient/parents/legal guardian/POA. Questions invited. The patient/parents/legal guardian/POA seems to understand and agrees to proceed with anesthesia plan. Reviewed the physical assessment, medical history, allergy history and patient home medications list prior to surgery/procedure/anesthetic and documented any changes. Performed airway and anesthesia risk assessments. Anesthesia Type Anesthesia Type: MAC History Source History Obtained from:: Patient and Chart Anesthesia Focused Assessment* Temperature: 97.0 F Pulse Rate: 54 Blood Pressure: 148/70 Respiratory Rate: 16 Pulse Ox: 98 Oxygen Delivery Method: Room Air Airway Assessment Mouth opens: >3 cm Mallampati Score: II Teeth Condition: Intact Neck Range of motion (ROM): Full ROM Labs Anesthesia Preop lab: CBC WBC 7.6 K/mm3 (4.4-11.0) 07/13/24 20:40 07/13/24 RBC 4.35 M/mm3 (4.6-6.2) L 07/13/24 20:40 07/13/24 Hgb 14.2 g/dL (13.0-16.5) 07/13/24 20:40 07/13/24 Hct 41.2 % (40-54) 07/13/24 20:40 07/13/24 Plt Count 152 K/mm3 (150-450) 07/13/24 20:40 07/13/24 CHEMISTRY Potassium 3.8 mmol/L (3.3-5.1) 07/13/24 20:40 07/13/24 Sodium 137 mmol/L (133-145) 07/13/24 20:40 07/13/24 Magnesium 2.0 mg/dL (1.5-2.2) 07/13/24 20:40 07/13/24 BUN 21 mg/dL (4-19) H 07/13/24 20:40 07/13/24 Creatinine 1.09 mg/dL (0.70-1.20) 07/13/24 20:40 07/13/24 Glucose 117 mg/dL (70-99) H 07/13/24 20:40 07/13/24 POC Glucose 98 mg/dL (70-110) 11/15/17 11:29 11/15/17 TSH 1.870 uIU/mL (0.300-4.200) 07/13/24 20:40 07/13/24 COAG PT 13.5 SECONDS (11.7-14.9) 11/15/17 11:15 11/15/17 Pre-Assessment Diagnosis/Proposed Procedure Planned Operative Procedure(s): EGD Anesthesia History 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 When Was Last Pacemaker Check QUESTION #4 FULL TEXT: You/Your Family Experience fever (hyperthermia) with Anesthesia Last Oral Intake Last Oral intake: Last Oral Intake NPO since 23:00 08/24/24 06:56 Meds taken in AM with sips of Yes 08/24/24 06:56 water? 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 Female No 08/21/24 14:27 HX of Motion Sickness No 08/21/24 14:27 HX of N/V After Surgery No 08/21/24 14:27 Non-Smoker Yes 08/21/24 14:27 Duration of Surgery greater No 08/21/24 14:27 than 60 minutes Number of Risk Factors 1 08/21/24 14:27 PONV Score Low Risk 08/21/24 14:27 Height & Weight Height & Weight: Anesthesia: Height & Weight Height 6 ft 08/24/24 06:56 Weight: 99 kg 08/24/24 06:56 Body Mass Index (BMI) 29.6 08/24/24 06:56 Respiratory Assessment Respiratory Assessment - locksmith apprentice: Respiratory Tract Infection Hx - locksmith apprentice Hx Respiratory Tract Infection No 08/21/24 14:27 STOP Sleep Apnea STOP Sleep Apnea - locksmith apprentice: STOP Sleep Apnea - locksmith apprentice Hx Hypertension Yes: CONTROLLED WITH MEDS 08/21/24 14:27 Hx Sleep Apnea No 08/21/24 14:27 CPAP No 08/21/24 14:27 BIPAP No 08/21/24 14:27 Do you snore loudly (louder No 08/21/24 14:27 than talking or can be heard Do you often feel tired/ Yes 08/21/24 14:27 fatigued/ sleepy during daytime? Has anyone observed you stop No 08/21/24 14:27 breathing during sleep? STOP Results Positive 08/21/24 14:27 QUESTION #5 FULL TEXT : Do you snore loudly (louder than talking or can be heard through closed doors)? 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 Specify any problems Hx of Preganancy in last 3 N/A 08/21/24 14:27 Months Nurse Filling Out Transfusion DSCHRIBER 08/21/24 14:27 & Questions: Date: 08/21/24 08/21/24 14:27 Time: 14:29 08/21/24 14:27 Patient unable to answer at this time (ie. confused, unrespo /Reproduction History /Reproductive History - locksmith apprentice: /Reproductive Hx- locksmith apprentice Hx Now Gestational Age (in weeks): EDC: Hx Hx Para Hx Section SAB No 08/21/24 14:27 Active Medications Active Medications: Current Medications Generic Name Dose Route Start Last Admin Trade Name Freq PRN Reason Stop Dose Admin Lactated Ringer's 1,000 mls @ 15 mls/hr 08/24/24 06:45 08/24/24 07:05 IV 15 mls/hr .Q48H CHARITO Administration PFSH Medical History Gastric reflux History of normal Holter exam History of stress test History of irregular heartbeat Left shoulder pain Wears glasses Arthritis High cholesterol Back pain TIA (transient ischemic attack) Stroke/cerebrovascular accident Syncope Non-smoker Leg cramps History of echocardiogram Cardiology follow-up encounter Hemorrhoids Open fracture of distal phalanx of left middle finger Open fracture of distal phalanx of left index finger Laceration of left middle finger without foreign body with damage to nail Contact with powered saw as cause of accidental injury Laceration of left index finger without foreign body with damage to nail Injury of nail bed of finger of left hand Hypertension Cryptogenic stroke Obesity Rectal bleed Hypothyroidism Lightheadedness Right bundle branch block Essential (primary) hypertension HLD (hyperlipidemia) CVA (cerebral vascular accident) (10/2017) Home Medications ?Medication ?Instructions ?Recorded ?Last Taken ?Type clopidogrel 75 mg tablet 75 mg PO DAILY #30 tabs 10/28/17 08/17/24 Rx cholecalciferol (vitamin D3) 50 2,000 unit PO DAILY 11/27/17 10/21/18 History mcg (2,000 unit) capsule multivitamin 1 tab PO DAILY 11/27/17 10/21/18 History atorvastatin 40 mg tablet 40 mg PO DAILY 05/25/19 Unknown History magnesium oxide 500 mg capsule 500 mg PO DAILY 05/25/19 Unknown History hydrochlorothiazide 12.5 mg tablet 12.5 mg PO BID 12/21/21 Unknown History lactobacillus combination no.9 4 4,000 mmu cells PO DAILY 12/21/21 Unknown History billion cell capsule (Adult 50 Plus Probiotic) levothyroxine 137 mcg tablet 137 mcg PO DAILY 12/21/21 08/24/24 History losartan 50 mg tablet 50 mg PO DAILY 30 days #30 tabs 06/16/24 08/24/24 History hydrocortisone 2.5 % topical cream 1 applic topical BID PRN itching 07/16/24 Unknown History loratadine 10 mg tablet 10 mg PO QDAY PRN allergy symptoms 07/16/24 Unknown History saw palmetto 450 mg capsule 450 mg PO QDAY 07/16/24 Unknown History Allergy/AdvReac Type Severity Reaction Status Date / Time adhesive tape Allergy Mild Unknown Verified 08/24/24 06:53 methimazole (From Tapazole) Allergy Mild Unknown Verified 08/24/24 06:53 Sulfa (Sulfonamide Allergy PT CAN'T Verified 08/24/24 06:53 Antibiotics) REMEMBER Family History Mother CVA (cerebral vascular accident) Cancer Colon cancer Thyroid disorder Father Heart disease Hypertension Cancer Diabetes Brother Myocardial infarction from [place] Other Anxiety and depression Arthritis Bowel disease Psychiatric care Skin cancer Surgical History Hx of colonoscopy Hx of eye surgery History of loop recorder (12/13/17) History of carpal tunnel release Hx of LASIK H/O knee surgery History of tonsillectomy Social History Smoking Status: Never smoker second hand exposure: No alcohol intake: never substance use type: does not use caffeine: Yes frequency: does not exercise seatbelt use: always additional social history: DOES NOT USE ASPIRIN DOES NOT USE IBUPROFEN Review of Systems (Anesthesia) ROS Narrative System reviewed and no additional complaints, except as documented. Physical Exam Const alert and oriented x3 HEENT dentition normal Neck full ROM Resp normal respiratory effort and normal air movement Cardio Cardio Narrative: bradycardia, appears normal sinus Back/Spine normal ROM Extremity full ROM Neuro oriented x3 and moves all extremities
--- NOTE | 2024-08-24 08:42 | OP.EGD_ITS ---
Patient Name: Trevor Gresham Procedure Date: 08/24/2024 8:13 AM Date of : 1950 Age: 74 Procedure: Upper GI endoscopy Indications: Anorexia, Abdominal bloating, Eructation Providers: Alberto Ferguson DO Referring MD: Liseth Del Valle Medicines: Monitored Anesthesia Care Patient Profile: This is a 74 year old male. Refer to note in patient chart for documentation of history and physical. Patient has symptoms of chronic dyspepsia, chronic heartburn and chronic nausea. Complications: No immediate complications. Procedure: Pre-Anesthesia Assessment: - Prior to the procedure, a History and Physical was performed, and patient medications and allergies were reviewed. The patient is competent. The risks and benefits of the procedure and the sedation options and risks were discussed with the patient. All questions were answered and informed consent was obtained. Patient identification and proposed procedure were verified by the physician in the pre-procedure area. Mental Status Examination: alert and oriented. Airway Examination: normal oropharyngeal airway and neck mobility. Respiratory Examination: clear to auscultation. CV Examination: normal. Prophylactic Antibiotics: The patient does not require prophylactic antibiotics. Prior Anticoagulants: The patient has taken no anticoagulant or antiplatelet agents except for NSAID medication. ASA Grade Assessment: II - A patient with mild systemic disease. After reviewing the risks and benefits, the patient was deemed in satisfactory condition to undergo the procedure. The anesthesia plan was to use monitored anesthesia care (MAC). Immediately prior to administration of medications, the patient was re-assessed for adequacy to receive sedatives. The heart rate, respiratory rate, oxygen saturations, blood pressure, adequacy of pulmonary ventilation, and response to care were monitored throughout the procedure. The physical status of the patient was re-assessed after the procedure. After obtaining informed consent, the endoscope was passed under direct vision. Throughout the procedure, the patient's blood pressure, pulse, and oxygen saturations were monitored continuously. The gastroscope was introduced through the mouth, and advanced to the second part of duodenum. The upper GI endoscopy was accomplished without difficulty. The patient tolerated the procedure well. Scope In: 8:29:03 AM Scope Out: 8:34:10 AM Total Procedure Duration Time 0 hours 5 minutes 7 seconds Findings: No gross lesions were noted in the entire esophagus. The Z-line was irregular and was found 40 cm from the incisors. Biopsies were taken with a cold forceps for histology. Verification of patient identification for the specimen was done. Estimated blood loss was minimal. Suspect gastroparesis due to absence of peristalsis and patient symptoms. Biopsies were taken with a cold forceps for histology. Verification of patient identification for the specimen was done. Biopsies were taken with a cold forceps for Helicobacter pylori testing. Verification of patient identification for the specimen was done. Estimated blood loss was minimal. Patchy mildly erythematous mucosa without active bleeding and with no stigmata of bleeding was found in the duodenal bulb. Biopsies were taken with a cold forceps for histology. Verification of patient identification for the specimen was done. Estimated blood loss was minimal. Impression: - No gross lesions in the entire esophagus. - Z-line irregular, 40 cm from the incisors. Biopsied. - Gastroparesis. Biopsied. - Erythematous duodenopathy. Biopsied. Recommendation: - Discharge patient to home. - Resume previous diet. - Continue present medications. - Await pathology results. Procedure Code(s): --- Professional --- 91351, Esophagogastroduodenoscopy, flexible, transoral; with biopsy, single or multiple CPT copyright 2021 [employer]. All rights reserved. The codes documented in this report are preliminary and upon motel maid review may be revised to meet current compliance requirements. Alberto Ferguson DO 08/24/2024 8:42:41 AM This report has been signed electronically. Number of Addenda: 0 Note Initiated On: 08/24/2024 8:13 AM
--- NOTE | 2024-08-24 08:43 | OP.CCLET_ITS ---
08/24/2024 Liseth Del Valle [address] [facility] [place] [address] Re : Upper GI endoscopy procedure for Trevor Gresham Dear Dr. Del Valle This procedure was performed on Saturday, August 24, 2024. My impressions and recommendations are as follows: Impressions : - No gross lesions in the entire esophagus. - Z-line irregular, 40 cm from the incisors. Biopsied. - Gastroparesis. Biopsied. - Erythematous duodenopathy. Biopsied. Recommendations : - Discharge patient to home. - Resume previous diet. - Continue present medications. - Await pathology results. My findings are described in the full procedure note, which is enclosed. If I can be of further assistance, please feel free to contact me at . Sincerely, Alberto Ferguson, 08/24/2024 8:42:41 AM This report has been signed electronically.
--- NOTE | 2024-08-24 08:47 | PCM.POST.ANE ---
Anesthesia: Postop Eval I Current Vital Signs Temperature: 97.5 F Pulse Rate: 53 Blood Pressure: 88/57 Respiratory Rate: 16 Pulse Ox: 98 Oxygen Delivery Method: Room Air Oxygen Flow Rate (L/min): 4 Assessment Airway patent: Yes Spontaneous unlabored respirations: Yes Mental status: Asleep nausea: No Vomiting: No Anesthesia Complication: No Fluid Hydration Crystalloid volume administer (ml): 300 Total IV fluid infused: 300 Progress Note Anesthesia document: Postop Eval 1 completed: Yes
--- NOTE | 2024-08-24 08:57 | PCM.POSTANE2 ---
Anesthesia Postop Eval I Sum Postop Eval Completion status Anesthesia document: Postop Eval 1 completed: Yes Anesthesia Postop Eval I Summary Anesthesia Postop Eval I Summary: Anesthesia Postop Eval I: Assessment Summary Airway patent Yes 08/24/24 08:48 [email or web address] Spontaneous unlabored Yes 08/24/24 08:48 [email or web address] respirations Mental status Asleep 08/24/24 08:48 [email or web address] nausea No 08/24/24 08:48 [email or web address] Vomiting No 08/24/24 08:48 [email or web address] Anesthesia Postop Eval I: Fluid Summary Crystalloid volume administer 300 08/24/24 08:48 [email or web address] (ml) Colloids volume administered ( ml) Blood Product volume administered (ml) Total IV fluid infused 300 08/24/24 08:48 [email or web address] Anesthesia Postop Eval I: Summary Notes Anesthesia Complication No 08/24/24 08:48 [email or web address] Anesthesia Complication Comment: Post-operative progress note Anesthesia: Postop Eval II Evaluation Mental status: Awake and Calm Pain Level: 0 nausea: No Vomiting: No Complications Anesthesia Complication: No
== END 2024-08-24 09:30 | disposition home or self-care (01) ==
LOC: EN 06:37 → AC 06:38
PROVIDERS: PCP Family Medicine; Referring Provider Family Medicine; Visit Provider Internal Medicine Gastroenterology
PROC: 0DJ08ZZ Inspection of Upper Intestinal Tract, Via Natural or Artificial Opening Endoscopic (ICD-10-PCS; CPT 43235; principal; 2024-08-24 07:25)
DX: K29.50 Unspecified chronic gastritis without bleeding (principal); K31.84 Gastroparesis; K21.9 Gastro-esophageal reflux disease without esophagitis; I10 Essential (primary) hypertension; E78.00 Pure hypercholesterolemia, unspecified; E03.9 Hypothyroidism, unspecified; Z79.890 Hormone replacement therapy
CPT/HCPCS: 43239; 88305; 88342; J2405

== ENCOUNTER → 2024-09-28 | Outpatient (CLI) | payer MEDICARE, OTHER, SELFPAY ==
--- NOTE | 2024-09-28 11:25 | NM_ITS ---
PROCEDURE: GASTRIC EMPTYING STUDY 09/28/2024 REASON FOR EXAM: BLOATING COMPARISON: None. TECHNIQUE: The patient ingested a semi-solid meal of oatmeal, with imaging obtained through 1 hour.. There was no vomiting postprandially. Anterior and posterior planar images of the upper abdomen were obtained for a total of 1 hour. Regions of interest were drawn, and a geometric mean was used to calculate a [id number]. Medications taken in the past 24 hours that may affect gastric emptying: None RADIOPHARMACEUTICAL: Oral administration, with in the oatmeal, of 1.2 mCi technetium 99 M sulfur colloid FINDINGS: During the time of imaging, gastroesophageal reflux was not identified. Linear fit gastric emptying half time of 28.57 minutes. Gastric emptying at 17.5 minutes of 53%, at 29.5 minutes of 70%, at 47.5 minutes of 85%, and at 59.5 minutes of 88%. NM/Gastric Emptying Study IMPRESSION: Rapid semi solid phase gastric emptying, with only 12% retention at 59.5 minute s. Linear fit gastric emptying half-time of 27.57 minutes. Reading Location: [place] [id number]
== END | disposition home or self-care (01) ==
LOC: NM 11:25
PROVIDERS: PCP Family Medicine; Referring Provider Student in an Organized Health Care Education/Training Program; Visit Provider Student in an Organized Health Care Education/Training Program
DX: R14.0 Abdominal distension (gaseous) (principal)
CPT/HCPCS: 78264; A9541

== ENCOUNTER 2024-11-12 05:49 | Day surgery (SDC) | payer MEDICARE, OTHER, SELFPAY ==
--- NOTE | 2024-10-29 13:30 | PAT.ANE_ITS ---
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 When Was Last Pacemaker Check QUESTION #4 FULL TEXT: You/Your Family Experience fever (hyperthermia) with Anesthesia Last Oral Intake Last Oral intake: Last Oral Intake NPO since Meds taken in AM with sips of water? Meds patient instructed to take am of surgery PONV PONV - type soldering machine tender: PONV - type soldering machine tender Female No 10/29/24 09:19 HX of Motion Sickness No 10/29/24 09:19 HX of N/V After Surgery No 10/29/24 09:19 Non-Smoker Yes 10/29/24 09:19 Duration of Surgery greater Yes 10/29/24 09:19 than 60 minutes Number of Risk Factors 2 10/29/24 09:19 PONV Score Moderate Risk 10/29/24 09:19 Height & Weight Height & Weight: Anesthesia: Height & Weight Height 6 ft 09/22/24 08:47 Respiratory Assessment Respiratory Assessment - type soldering machine tender: Respiratory Tract Infection Hx - type soldering machine tender Hx Respiratory Tract Infection No 10/29/24 09:19 STOP Sleep Apnea STOP Sleep Apnea - type soldering machine tender: STOP Sleep Apnea - type soldering machine tender Hx Hypertension Yes: CONTROLLED WITH MEDS 10/29/24 09:19 Hx Sleep Apnea Yes: MILD 10/29/24 09:19 CPAP No 10/29/24 09:19 BIPAP No 10/29/24 09:19 Do you snore loudly (louder than talking or can be heard Do you often feel tired/ fatigued/ sleepy during daytime? Has anyone observed you stop breathing during sleep? STOP Results Positive 10/29/24 09:19 QUESTION #5 FULL TEXT : Do you snore loudly (louder than talking or can be heard through closed doors)? 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 Specify any problems Hx of Preganancy in last 3 N/A 10/29/24 09:19 Months Nurse Filling Out Transfusion [email or web address] 10/29/24 09:19 & Questions: Date: 10/29/24 10/29/24 09:19 Time: :24 10/29/24 09:19 Patient unable to answer at this time (ie. confused, unrespo /Reproduction History /Reproductive History - type soldering machine tender: /Reproductive Hx- type soldering machine tender Hx Now No 10/29/24 09:19 Gestational Age (in weeks): EDC: Hx Hx Para Hx Section SAB No 10/29/24 09:19 [facility] Medical History (Updated 10/29/24 @ 09:33 by Juan Melendez) Sleep apnea History of Holter monitoring Inguinal hernia Gastric reflux History of normal Holter exam History of stress test History of irregular heartbeat Left shoulder pain Wears glasses Arthritis High cholesterol Back pain TIA (transient ischemic attack) Stroke/cerebrovascular accident Syncope Non-smoker Leg cramps History of echocardiogram Cardiology follow-up encounter Hemorrhoids Open fracture of distal phalanx of left middle finger Open fracture of distal phalanx of left index finger Laceration of left middle finger without foreign body with damage to nail Contact with powered saw as cause of accidental injury Laceration of left index finger without foreign body with damage to nail Injury of nail bed of finger of left hand Hypertension Cryptogenic stroke Obesity Rectal bleed Hypothyroidism Lightheadedness Right bundle branch block Essential (primary) hypertension HLD (hyperlipidemia) CVA (cerebral vascular accident) (10/2017) Home Medications ?Medication ?Instructions ?Recorded ?Last Taken ?Type clopidogrel 75 mg tablet 75 mg PO DAILY #30 tabs 10/1208/17/24 Rx cholecalciferol (vitamin D3) 50 2,000 unit PO DAILY 10/21/18 History mcg (2,000 unit) capsule multivitamin 1 tab PO DAILY 11/27/1710/12 History atorvastatin 40 mg tablet 40 mg PO DAILY 05/25/19 Unkn own History magnesium oxide 500 mg capsule 500 mg PO DAILY 0 Unknown History hydrochlorothiazide 12.5 mg tablet 12.5 mg PO BID 12/12 Unknown History lactobacillus combination no.9 4 4,000 mmu cells PO DA VEE 12/21/21 Unknown History billion cell capsule (Adult 50 Plus Probiotic) levothyroxine 137 mcg tablet 137 mcg PO DAILY 12/21/21 08/24/24 History losartan 50 mg tablet 50 mg PO DAILY 30 days #30 t abs 06/16/24 08/24/24 History hydrocortisone 2.5 % topical cream 1 applic topical BI D PRN itching 07/16/24 Unknown History saw palmetto 450 mg capsule 450 mg PO QDAY 07/16/24 Un known History ketoconazole 2 % shampoo 1 applic topical MOWE PRN SC ALP 09/02/24 Unknown History Allergy/AdvReac Type Severity Reaction Status Date / Time adhesive tape Allergy Mild Unknown Verified 10/29/24 09:15 methimazole (From Tapazole) Allergy Mild Unknown Verified 10/29/24 09:15 Sulfa (Sulfonamide Allergy PT CAN'T Verified 10/29/24 09:15 Antibiotics) REMEMBER Family History Mother CVA (cerebral vascular accident) Cancer Colon cancer Thyroid disorder Father Heart disease Hypertension Cancer Diabetes Brother Myocardial infarction from [place] Other Anxiety and depression Arthritis Bowel disease Psychiatric care Skin cancer Surgical History History of esophagogastroduodenoscopy (EGD) Hx of colonoscopy Hx of eye surgery History of loop recorder (12/13/17) History of carpal tunnel release Hx of LASIK H/O knee surgery History of tonsillectomy Social History Smoking Status: Never smoker second hand exposure: No alcohol intake: never substance use type: does not use caffeine: Yes frequency: does not exercise seatbelt use: always additional social history: DOES NOT USE ASPIRIN DOES NOT USE IBUPROFEN Audit: Pertinent Findings Pertinent Findings EKG Perinent findings: July 13, 2024. Sinus rhythm with frequent PVC. Right bundle branch block. Stress test pertinent findings: 08/19/2024. No inducible ischemia. No evidence of scarred myocardium. Echo (EF%) pertinent findings: 10/27/2017. Normal size and function. EF of 60%. Consult pertinent findings: 09/02/2024. Tristen CHIEF OF ANESTHESIOLOGYIsabellaC. 1. 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 Loop recorder was negative for arrhythmia. Neurology is managing patient's Plavix and statins. No direct cardiac cause observed on testing. 2. [id number] monitor in 2022 showed heart rate of 74 bpm. Holter monitor in July 2024 showed average heart rate of 62 bpm. Currently not on any rate limiting medication. Continue to monitor. 3. Hypertension well-controlled. No med changes. 4. Frequent unifocal PVCs-Holter July 2024 showed PVC burden of 20%. Twelve- lead EKG on 07/13/2024 showed sinus rhythm with frequent PVCs. Stress test as above showed no ischemia. Patient to get electrophysiology evaluation. Additional pertinent findings: 14-day event monitor. September 15, 2022. Baseline was sinus rhythm. 0 critical, 0 serious and 1 stable event that occurred. VE burden 2%. SVE burden less than 1%. No atrial fibrillation.
--- NOTE | 2024-10-30 13:37 | PAT.ANE_ITS ---
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 When Was Last Pacemaker Check QUESTION #4 FULL TEXT: You/Your Family Experience fever (hyperthermia) with Anesthesia Last Oral Intake Last Oral intake: Last Oral Intake NPO since Meds taken in AM with sips of water? Meds patient instructed to take am of surgery PONV PONV - hose suspender cutter: PONV - hose suspender cutter Female No 10/29/24 09:19 HX of Motion Sickness No 10/29/24 09:19 HX of N/V After Surgery No 10/29/24 09:19 Non-Smoker Yes 10/29/24 09:19 Duration of Surgery greater Yes 10/29/24 09:19 than 60 minutes Number of Risk Factors 2 10/29/24 09:19 PONV Score Moderate Risk 10/29/24 09:19 Height & Weight Height & Weight: Anesthesia: Height & Weight Height 6 ft 09/22/24 08:47 Respiratory Assessment Respiratory Assessment - hose suspender cutter: Respiratory Tract Infection Hx - hose suspender cutter Hx Respiratory Tract Infection No 10/29/24 09:19 STOP Sleep Apnea STOP Sleep Apnea - hose suspender cutter: STOP Sleep Apnea - hose suspender cutter Hx Hypertension Yes: CONTROLLED WITH MEDS 10/29/24 09:19 Hx Sleep Apnea Yes: MILD 10/29/24 09:19 CPAP No 10/29/24 09:19 BIPAP No 10/29/24 09:19 Do you snore loudly (louder than talking or can be heard Do you often feel tired/ fatigued/ sleepy during daytime? Has anyone observed you stop breathing during sleep? STOP Results Positive 10/29/24 09:19 QUESTION #5 FULL TEXT : Do you snore loudly (louder than talking or can be heard through closed doors)? 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 Specify any problems Hx of Preganancy in last 3 N/A 10/29/24 09:19 Months Nurse Filling Out Transfusion [email or web address] 10/29/24 09:19 & Questions: Date: 10/29/24 10/29/24 09:19 Time: :24 10/29/24 09:19 Patient unable to answer at this time (ie. confused, unrespo /Reproduction History /Reproductive History - hose suspender cutter: /Reproductive Hx- hose suspender cutter Hx Now No 10/29/24 09:19 Gestational Age (in weeks): EDC: Hx Hx Para Hx Section SAB No 10/29/24 09:19 [facility] Medical History (Updated 10/29/24 @ 09:33 by Juan Melendez) Sleep apnea History of Holter monitoring Inguinal hernia Gastric reflux History of normal Holter exam History of stress test History of irregular heartbeat Left shoulder pain Wears glasses Arthritis High cholesterol Back pain TIA (transient ischemic attack) Stroke/cerebrovascular accident Syncope Non-smoker Leg cramps History of echocardiogram Cardiology follow-up encounter Hemorrhoids Open fracture of distal phalanx of left middle finger Open fracture of distal phalanx of left index finger Laceration of left middle finger without foreign body with damage to nail Contact with powered saw as cause of accidental injury Laceration of left index finger without foreign body with damage to nail Injury of nail bed of finger of left hand Hypertension Cryptogenic stroke Obesity Rectal bleed Hypothyroidism Lightheadedness Right bundle branch block Essential (primary) hypertension HLD (hyperlipidemia) CVA (cerebral vascular accident) (10/2017) Home Medications ?Medication ?Instructions ?Recorded ?Last Taken ?Type clopidogrel 75 mg tablet 75 mg PO DAILY #30 tabs 10/1208/17/24 Rx cholecalciferol (vitamin D3) 50 2,000 unit PO DAILY 10/21/18 History mcg (2,000 unit) capsule multivitamin 1 tab PO DAILY 11/27/1710/12 History atorvastatin 40 mg tablet 40 mg PO DAILY 05/25/19 Unkn own History magnesium oxide 500 mg capsule 500 mg PO DAILY 0 Unknown History hydrochlorothiazide 12.5 mg tablet 12.5 mg PO BID 12/12 Unknown History lactobacillus combination no.9 4 4,000 mmu cells PO DA VEE 12/21/21 Unknown History billion cell capsule (Adult 50 Plus Probiotic) levothyroxine 137 mcg tablet 137 mcg PO DAILY 12/21/21 08/24/24 History losartan 50 mg tablet 50 mg PO DAILY 30 days #30 t abs 06/16/24 08/24/24 History hydrocortisone 2.5 % topical cream 1 applic topical BI D PRN itching 07/16/24 Unknown History saw palmetto 450 mg capsule 450 mg PO QDAY 07/16/24 Un known History ketoconazole 2 % shampoo 1 applic topical MOWE PRN SC ALP 09/02/24 Unknown History Allergy/AdvReac Type Severity Reaction Status Date / Time adhesive tape Allergy Mild Unknown Verified 10/29/24 09:15 methimazole (From Tapazole) Allergy Mild Unknown Verified 10/29/24 09:15 Sulfa (Sulfonamide Allergy PT CAN'T Verified 10/29/24 09:15 Antibiotics) REMEMBER Family History Mother CVA (cerebral vascular accident) Cancer Colon cancer Thyroid disorder Father Heart disease Hypertension Cancer Diabetes Brother Myocardial infarction from [place] Other Anxiety and depression Arthritis Bowel disease Psychiatric care Skin cancer Surgical History History of esophagogastroduodenoscopy (EGD) Hx of colonoscopy Hx of eye surgery History of loop recorder (12/13/17) History of carpal tunnel release Hx of LASIK H/O knee surgery History of tonsillectomy Social History Smoking Status: Never smoker second hand exposure: No alcohol intake: never substance use type: does not use caffeine: Yes frequency: does not exercise seatbelt use: always additional social history: DOES NOT USE ASPIRIN DOES NOT USE IBUPROFEN Audit: Pertinent Findings HISTORY of Pertinent Findings History of Pertinent Findings: EKG Pertinent Findings EKG Perinent findings July 13, 2024. Sinus rhythm 10/29/24 13:32 with frequent PVC. Right bundle branch block. Stress Test Pertinent Findings Stress test pertinent findings 08/19/2024. No inducible 10/29/24 18:05 ischemia. No evidence of scarred myocardium. Echo Pertinent Findings Echo (EF%) pertinent findings 10/27/2017. Normal size and 10/29/24 18:02 function. EF of 60%. Consult Pertinent Findings Consult pertinent findings 09/02/2024. 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 10/29/24 18:14 1. 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 Loop recorder was negative for arrhythmia. Neurology is managing patient's Plavix and statins. No direct cardiac cause observed on testing. 2. [id number]-wda monitor in 2022 showed heart rate of 74 bpm. Holter monitor in July 2024 showed average heart rate of 62 bpm . Currently not on any rate limiting medication. Continue to monitor. 3. Hypertension well- controlled. No med changes. 4. Frequent unifocal PVCs- Holter July 2024 showed PVC burden of 20%. Twelve-lead EKG on 07/13/2024 showed sinus rhythm with frequent PVCs. Stress test as above showed no ischemia. Patient to get electrophysiology evaluation. Additional Pertinent Findings Additional pertinent findings 14-day event monitor. 10/29/24 18:05 September 15, 2022. Baseline was sinus rhythm. 0 critical, 0 serious and 1 stable event that occurred. VE burden 2%. SVE burden less than 1%. No atrial fibrillation. Recommendation Anesthesia Recommendation Anesthesia recommendation: OPTIMIZED for anesthesia
[2024-11-02 13:19] LABS: Anion Gap 9 (5-15); BUN 25 mg/dL (4-19); BUN/Creat Ratio 22.5 RATIO (10-20); Calcium,Total 9.2 mg/dL (7.6-11.0); Carbon Dioxide 27.1 mmol/L (21.0-32.0); Chloride 105 mmol/L (98-108); Glucose 115 mg/dL (70-99); Potassium 4.2 mmol/L (3.3-5.1)
[2024-11-02 15:32] LABS: Hematocrit 43.5 % (40-54); Hemoglobin 14.9 g/dL (13.0-16.5); Immature Granulocytes Count 0.010 X10^3/uL (0.0-0.0); Mean Corp Hgb Conc 34.3 g/dL (32-36); Mean Corpuscular Volume 96.0 fL (80-94); Mean Platelet Vol. 12.0 fl (6.2-12.0); NRBC Flagged by Analyzer 0 % (0-5); Platelet Count 153 K/mm3 (150-450); RBC Distribution Width CV 11.9 % (11.6-14.6); RBC Distribution Width SD 41.3 fl (35.1-43.9); Red Blood Count 4.53 M/mm3 (4.6-6.2); White Blood Count 5.8 K/mm3 (4.4-11.0)
[2024-11-12] VITALS (10 sets, daily range): BP systolic 120–140; BP diastolic 61–93; PULSE 50–60; RESP 16–18; TEMP 36.2–36.8; O2SAT 94–127; BMI 30.4
[2024-11-12] MEDS: Lactated Ringers 1,000 ML 15 ML IV ×2 (06:17→09:11)
--- NOTE | 2024-11-12 07:08 | PCM.PRE.AN2 ---
ASA Classification* ASA Classification ASA Classification: 3 Assessment & Plan Anesthesia* Anesthesia Assessment Anesthesia Assessment: Discussed sedation and/or anesthesia options, risks, benefits, and alternatives with patient/parents/legal guardian/POA. Questions invited. The patient/parents/legal guardian/POA seems to understand and agrees to proceed with anesthesia plan. Reviewed the physical assessment, medical history, allergy history and patient home medications list prior to surgery/procedure/anesthetic and documented any changes. Performed airway and anesthesia risk assessments. Anesthesia Type Anesthesia Type: General History Source History Obtained from:: Patient and Chart Anesthesia Focused Assessment* Temperature: 97.3 F Pulse Rate: 58 Blood Pressure: 140/93 Respiratory Rate: 16 Pulse Ox: 100 Oxygen Delivery Method: Room Air Airway Assessment Mouth opens: >3 cm Mallampati Score: III Teeth Condition: Caps/Crowns (Back teeth, all are tight ) Neck Range of motion (ROM): Full ROM Labs Anesthesia Preop lab: CBC WBC, (4.4-11.0) 5.8 K/mm3 11/02/24, : RBC, (4.6-6.2) 4.53 M/mm3 L 11/02/24, : Hgb, (13.0-16.5) 14.9 g/dL 11/02/24, : Hct, (40-54) 43.5 % 11/02/24, : Plt Count, (150-450) 153 K/mm3 11/02/24, :34 CHEMISTRY Potassium, (3.3-5.1) 4.2 mmol/L 11/02/24, : Sodium, (133-145) 141 mmol/L 11/02/24, :34 Magnesium, (1.5-2.2) 2.0 mg/dL 07/13/24, 20:40 BUN, (4-19) 25 mg/dL H 11/02/24, :34 Creatinine, (0.70-1.20) 1.13 mg/dL 11/02/24, 09:34 Glucose, (70-99) 115 mg/dL H 11/02/24, 09:34 POC Glucose, (70-110) 98 mg/dL 11/15/17, 11:29 TSH, (0.300-4.200) 0.687 uIU/mL 11/02/24, 09:34 COAG PT, (11.7-14.9) 13.5 SECONDS 11/15/17, 11:15 Pre-Assessment Diagnosis/Proposed Procedure Planned Operative Procedure(s): ROBOTIC BILATERAL INGUINAL HERNIA WITH MESH Anesthesia History 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 When Was Last Pacemaker Check QUESTION #4 FULL TEXT: You/Your Family Experience fever (hyperthermia) with Anesthesia Last Oral Intake Last Oral intake: Last Oral Intake NPO since 03:00 11/12/24 06:05 Meds taken in AM with sips of Yes 11/12/24 06:05 water? 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 Female No 10/29/24 09:19 HX of Motion Sickness No 10/29/24 09:19 HX of N/V After Surgery No 10/29/24 09:19 Non-Smoker Yes 10/29/24 09:19 Duration of Surgery greater Yes 10/29/24 09:19 than 60 minutes Number of Risk Factors 2 10/29/24 09:19 PONV Score Moderate Risk 10/29/24 09:19 Height & Weight Height & Weight: Anesthesia: Height & Weight Height 6 ft 11/12/24 06:05 Weight: 102 kg 11/12/24 06:05 Body Mass Index (BMI) 30.4 11/12/24 06:05 Respiratory Assessment Respiratory Assessment - 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 Has anyone observed you stop breathing during sleep? STOP Results Positive 10/29/24 09:19 QUESTION #5 FULL TEXT : Do you snore loudly (louder than talking or can be heard through closed doors)? 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 Specify any problems Hx of Preganancy in last 3 N/A 10/29/24 09:19 Months Nurse Filling Out Transfusion [email or web address] 10/29/24 09:19 & Questions: Date: 10/29/24 10/29/24 09:19 Time: :24 10/29/24 09:19 Patient unable to answer at this time (ie. 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: /Reproductive Hx- fishing line winding machine operator Hx Now No 10/29/24 09:19 Gestational Age (in weeks): EDC: Hx Hx Para Hx Section SAB No 10/29/24 09:19 Active Medications Active Medications: Current Medications Generic Name Dose Route Start Last Admin Trade Name Freq PRN Reason Stop Dose Admin Cefazolin Sodium 2 gm/ Sodium 110 mls @ 200 mls/hr 11/12/24 07:30 Chloride IV 11/12/24 08:02 INTRAOP ONE Lactated Ringer's 1,000 mls @ 15 mls/hr 11/12/24 06:00 11/12/24 06:17 IV 15 mls/hr .Q48H CHARITO Administration PFSH Medical History (Updated 10/29/24 @ 09:33 by Juan Melendez) Sleep apnea History of Holter monitoring Inguinal hernia Gastric reflux History of normal Holter exam History of stress test History of irregular heartbeat Left shoulder pain Wears glasses Arthritis High cholesterol Back pain TIA (transient ischemic attack) Stroke/cerebrovascular accident Syncope Non-smoker Leg cramps History of echocardiogram Cardiology follow-up encounter Hemorrhoids Open fracture of distal phalanx of left middle finger Open fracture of distal phalanx of left index finger Laceration of left middle finger without foreign body with damage to nail Contact with powered saw as cause of accidental injury Laceration of left index finger without foreign body with damage to nail Injury of nail bed of finger of left hand Hypertension Cryptogenic stroke Obesity Rectal bleed Hypothyroidism Lightheadedness Right bundle branch block Essential (primary) hypertension HLD (hyperlipidemia) CVA (cerebral vascular accident) (10/2017) Home Medications ?Medication ?Instructions ?Recorded ?Last Taken ?Type clopidogrel 75 mg tablet 75 mg PO DAILY #30 tabs 10/28/17 11/06/24 Rx cholecalciferol (vitamin D3) 50 2,000 unit PO DAILY 11/27/17 10/21/18 History mcg (2,000 unit) capsule multivitamin 1 tab PO DAILY 11/27/17 10/21/18 History atorvastatin 40 mg tablet 40 mg PO DAILY 05/25/19 Unknown History magnesium oxide 500 mg capsule 500 mg PO DAILY 05/25/19 Unknown History hydrochlorothiazide 12.5 mg tablet 12.5 mg PO BID 12/21/21 Unknown History lactobacillus combination no.9 4 4,000 mmu cells PO DAILY 12/21/21 Unknown History billion cell capsule (Adult 50 Plus Probiotic) levothyroxine 137 mcg tablet 137 mcg PO DAILY 12/21/21 11/12/24 History losartan 50 mg tablet 50 mg PO DAILY 30 days #30 tabs 06/16/24 11/11/24 History hydrocortisone 2.5 % topical cream 1 applic topical BID PRN itching 07/16/24 Unknown History saw palmetto 450 mg capsule 450 mg PO QDAY 07/16/24 Unknown History ketoconazole 2 % shampoo 1 applic topical MOWE PRN SCALP 09/02/24 Unknown History Allergy/AdvReac Type Severity Reaction Status Date / Time adhesive tape Allergy Mild Unknown Verified 11/12/24 06:04 methimazole (From Tapazole) Allergy Mild Unknown Verified 11/12/24 06:04 Sulfa (Sulfonamide Allergy PT CAN'T Verified 11/12/24 06:04 Antibiotics) REMEMBER Family History Mother CVA (cerebral vascular accident) Cancer Colon cancer Thyroid disorder Father Heart disease Hypertension Cancer Diabetes Brother Myocardial infarction from [place] Other Anxiety and depression Arthritis Bowel disease Psychiatric care Skin cancer Surgical History History of esophagogastroduodenoscopy (EGD) Hx of colonoscopy Hx of eye surgery History of loop recorder (12/13/17) History of carpal tunnel release Hx of LASIK H/O knee surgery History of tonsillectomy Social History Smoking Status: Never smoker second hand exposure: No alcohol intake: never substance use type: does not use caffeine: Yes frequency: does not exercise seatbelt use: always additional social history: DOES NOT USE ASPIRIN DOES NOT USE IBUPROFEN Review of Systems (Anesthesia) ROS Narrative System reviewed and no additional complaints, except as documented.
--- NOTE | 2024-11-12 07:24 | PCM.HP.STD ---
HPI - General General Date of Admission: 11/12/24 Date of Service: 11/12/24 Chief Complaint: bilateral inguinal hernia HPI Narrative DONNA COLEMAN, is a 74 M who presents for robotic repair of bilateral inguinal hernia COUNTS INCLUDE 234 BEDS AT THE [facility] Medical History (Updated 10/29/24 @ 09:33 by Juan Melendez) Sleep apnea History of Holter monitoring Inguinal hernia Gastric reflux History of normal Holter exam History of stress test History of irregular heartbeat Left shoulder pain Wears glasses Arthritis High cholesterol Back pain TIA (transient ischemic attack) Stroke/cerebrovascular accident Syncope Non-smoker Leg cramps History of echocardiogram Cardiology follow-up encounter Hemorrhoids Open fracture of distal phalanx of left middle finger Open fracture of distal phalanx of left index finger Laceration of left middle finger without foreign body with damage to nail Contact with powered saw as cause of accidental injury Laceration of left index finger without foreign body with damage to nail Injury of nail bed of finger of left hand Hypertension Cryptogenic stroke Obesity Rectal bleed Hypothyroidism Lightheadedness Right bundle branch block Essential (primary) hypertension HLD (hyperlipidemia) CVA (cerebral vascular accident) (10/2017) Home Medications ?Medication ?Instructions ?Recorded ?Last Taken ?Type clopidogrel 75 mg tablet 75 mg PO DAILY #30 tabs 10/28/17 11/06/24 Rx cholecalciferol (vitamin D3) 50 2,000 unit PO DAILY 11/27/17 10/21/18 History mcg (2,000 unit) capsule multivitamin 1 tab PO DAILY 11/27/17 10/21/18 History atorvastatin 40 mg tablet 40 mg PO DAILY 05/25/19 Unknown History magnesium oxide 500 mg capsule 500 mg PO DAILY 05/25/19 Unknown History hydrochlorothiazide 12.5 mg tablet 12.5 mg PO BID 12/21/21 Unknown History lactobacillus combination no.9 4 4,000 mmu cells PO DAILY 12/21/21 Unknown History billion cell capsule (Adult 50 Plus Probiotic) levothyroxine 137 mcg tablet 137 mcg PO DAILY 12/21/21 11/12/24 History losartan 50 mg tablet 50 mg PO DAILY 30 days #30 tabs 06/16/24 11/11/24 History hydrocortisone 2.5 % topical cream 1 applic topical BID PRN itching 07/16/24 Unknown History saw palmetto 450 mg capsule 450 mg PO QDAY 07/16/24 Unknown History ketoconazole 2 % shampoo 1 applic topical MOWE PRN SCALP 09/02/24 Unknown History Allergy/AdvReac Type Severity Reaction Status Date / Time adhesive tape Allergy Mild Unknown Verified 11/12/24 06:04 methimazole (From Tapazole) Allergy Mild Unknown Verified 11/12/24 06:04 Sulfa (Sulfonamide Allergy PT CAN'T Verified 11/12/24 06:04 Antibiotics) REMEMBER Family History Mother CVA (cerebral vascular accident) Cancer Colon cancer Thyroid disorder Father Heart disease Hypertension Cancer Diabetes Brother Myocardial infarction from [place] Other Anxiety and depression Arthritis Bowel disease Psychiatric care Skin cancer Surgical History History of esophagogastroduodenoscopy (EGD) Hx of colonoscopy Hx of eye surgery History of loop recorder (12/13/17) History of carpal tunnel release Hx of LASIK H/O knee surgery History of tonsillectomy Social History Smoking Status: Never smoker second hand exposure: No alcohol intake: never substance use type: does not use caffeine: Yes frequency: does not exercise seatbelt use: always additional social history: DOES NOT USE ASPIRIN DOES NOT USE IBUPROFEN Vital Signs Vital Signs Vital Signs: 11/12/24 06:05 11/12/24 06:05 11/12/24 07:13 Temperature 97.3 F L 97.3 F L Temperature Source Temporal Pulse Rate 58 L 58 L Respiratory Rate 16 16 Respiratory Pattern Normal Blood Pressure 140/93 H 140/93 H Blood Pressure Mean 108 Blood Pressure Source Monitor Blood Pressure Position Semi-Fowlers Blood Pressure Location Left Arm Pulse Ox 100 100 Oxygen Delivery Method Room Air Room Air Weight Weight: 224 lb 13.944 oz Body Mass Index (BMI) 30.4 Physical Exam Const alert, oriented x3 and no apparent distress Results Lab / Micro Data 11/02/24 09:34 11/02/24 09:34 Assessment & Plan Assessment/Plan (1) Inguinal hernia: PLAN: Plan robotic bilateral inguinal hernia repair with mesh
[2024-11-12] MEDS: Cefazolin 1 GM/5 ML Vial 2 GM IV (07:44)
[2024-11-12] MEDS: Bupiv/Epi 0.25% 30 ML Vial (09:55)
[2024-11-12] MEDS: Lidocaine 1% (5 ml sdv) 5 ML Vial 15 ML IV (09:56)
--- NOTE | 2024-11-12 10:01 | EX.PCM.DISCH ---
Discharge Instructions Diet Discharge Diet: Light diet - advance as tolerated Activity Discharge Activity: Return to Normal Activity May shower in (days): 1 Ice area for (Minutes): 30 Lifting Restrictions: No lifting pushing or pulling more than 20 pounds for 6 weeks Dressing / Incision Call your doctor if your incision/area has: Continuous Slow Oozing, Sudden Increased Bleeding, Increased Pain/ Swelling, Increased Redness, Foul Smelling Discharge and Swelling at the incision site Call your doctor if you observe: Fever of 101 or Higher Cleanse incision/area with: Soap & Water Follow Up Care Please Follow Up With: Silvano Day MD When: 2 weeks. Please call office to schedule appointment Test Results: Test results from this visit will be discussed in further detail at your follow-up appointment, if applicable. Discharge Plan Admission Primary Reason for Your Visit: Bilateral robotic inguinal hernia repair with mesh Attending Provider: Silvano Day Primary Care Provider: Liseth Del Valle Consulting Providers: Colten Olmedo Instructions Additional Instructions / Restrictions: Please resume Plavix on November 14 Print Language: Mongolian Discharge Orders/Prescriptions Prescriptions: New oxycodone 5 mg tablet 5 mg PO Q8H PRN (Reason: pain) 3 Days Qty: 10 0RF Continued cholecalciferol (vitamin D3) 2,000 unit capsule 2,000 unit PO DAILY multivitamin tablet 1 tab PO DAILY losartan 50 mg tablet 50 mg PO DAILY 30 Days Qty: 30 Rx Instructions: take one half tablet AM and one tablet PM atorvastatin 40 mg tablet 40 mg PO DAILY magnesium oxide 500 mg capsule 500 mg PO DAILY levothyroxine 137 mcg tablet 137 mcg PO DAILY Patient Comments: ON SATURDAY 1.5 TAB hydrochlorothiazide 12.5 mg tablet 12.5 mg PO BID Adult 50 Plus Probiotic 4 billion cell capsule 4,000 mmu cells PO DAILY Rx Instructions: administer with a meal hydrocortisone 2.5 % cream 1 applic topical BID PRN (Reason: itching) saw palmetto 450 mg capsule 450 mg PO QDAY ketoconazole 2 % shampoo 1 applic topical MOWE PRN (Reason: SCALP) clopidogrel 75 MG tablet 75 mg PO DAILY Qty: 30 0RF Referrals / Follow Up: Liseth Del Valle DO [Primary Care Provider, Family Practice] Disposition Disposition (needs filled in before D/C Order can be placed): Home, Self Care
--- NOTE | 2024-11-12 10:05 | OP.PCM_ITS ---
Multi Select Codes Digestive Digestive CPT Codes: 31930-58 Lap ing hernia repair init (bilateral) Urinary/Genital Urinary/Genital CPT Codes: 67643 Lysis of adhesions, laproscopic Operative Report (Standard) Operative Information Date of Procedure: 11/12/24 Pre-Operative Diagnosis: Bilateral inguinal hernia Post-Operative Diagnosis: Same Surgery/Procedure Performed: 1. Robotic bilateral inguinal hernia repairs with mesh 2. Lysis of adhesions pharmacy sales representative: Yes Fluoroscope Operator: Angelita Alonzo Tasks completed by staff assistant: Closing, Trocar, Retracting and Other Additional respiratory equipment assistant?: Yes Additional Night Coordinator #2: Cesia Dykes Tasks completed by respiratory equipment assistant #2: Closing Type of Anesthesia: General and Local RN Documented Start/Stop Times: Operation Date: 11/12/24 07:30 Case Time Into Pre-Op 11/12/24 05:54 Anesthesia Start 11/12/24 07:36 Into Room 11/12/24 07:36 Procedure Start 11/12/24 08:00 Procedure End 11/12/24 10:04 Procedure Start Time: 08:00 Procedure Stop Time: 10:03 Select all DRAINS/GRAFTS/IMPLANTS that apply: None Special Medications: IV Ancef preop Estimated Blood Loss: Minimal Specimen collected: No Description of surgery: The patient is a 74-year-old male who presents the office with bilateral inguinal hernias. I offered him robotic bilateral inguinal hernia repair with mesh. We discussed the details of the planned procedure including the risks benefits and alternatives and he wished to proceed. He was brought to the operating today following informed consent. Preoperative antibiotics were given and a timeout was performed. He is placed supine on the operative table with arms outstretched on arm boards. General anesthesia was induced. The abdomen was then prepped and draped in the usual sterile manner. Local anesthetic was injected into the region just above the umbilicus. A #11 blade was then used to make a 8 mm incision. Through this a 5 mm trocar was placed optically. This was placed without incident. Once in place the abdomen was then fully insufflated with CO2 gas. A 5 mm 0 degree scope was inserted. There were no signs of bowel or vascular injury. An 8 mm robotic trocar was placed on the right side of the abdomen under direct visualization. Another 8 mm trocar was placed on the left side of the abdomen. Both of these were placed under direct visualization and without difficulty. It was noted that there was adhesions just below the umbilicus near the initial trocar site. This required about 30 minutes of adhesiolysis. These adhesions were taken down using electrocautery connected to laparoscopic scissors. Once these were taken down the 8 mm robotic trocar was inserted under direct visualization. Was then placed in mild Trendelenburg positioning. The robot was then brought into the operative field and appropriately docked. Once instruments were in place. The left-sided hernia was repaired first. The peritoneum overlying the hernia was incised and a medial to lateral direction using scissors and electrocautery. A subperitoneal plane was then developed using blunt dissection. Boyd's ligament was dissected out medially. The patient had a fairly sizable direct hernia sac. This was reduced. There was no significant indirect hernia component. Once sufficient dissection was performed, a ProGrip 10 x 15 mesh was selected. This was trimmed to fit the operative site. This was placed in antibiotic solution and inserted into the patient. This was laid into position. This laid very nicely over the hernia defect. The overlying peritoneum was then closed in a running fashion using a 6 inch V-Loc suture. This closed the peritoneum nicely. The right sided hernia was then repaired in a similar manner by incising the peritoneum in a lateral to medial direction using curved scissors and electrocautery. A subperitoneal plane again was developed. The patient had a direct hernia on the right side as well. This was much smaller. There was no indirect component but there was a cord lipoma that was reduced. Boyd's ligament was dissected out medially. Once sufficient dissection was performed, a 10 x 15 cm ProGrip mesh was again utilized. This was trimmed to fit the operative field. It was placed in antibiotic solution and laid in position. This covered over the fascial defect nicely. The peritoneum was then closed in a running manner again with a 6 inch V-Loc suture. There was a small peritoneal defect that was closed using 3-0 Vicryl. The repair was now complete. Trocars were removed. Insufflation was allowed to escape. Local anesthetic was injected into the incisions. Incisions were closed with 4-0 Vicryl and skin glue. He was awakened from anesthesia and taken to recovery in good condition. Surgical Findings: Bilateral inguinal hernias. Intra-abdominal adhesions Complications Complications: No Admit VTE Documentation VTE Present on Admission: No VTE Mechan Device Prophylaxis: SCD's VTE Pharm Prophylaxis ordered?: No Reason prophylaxis not ordered: Treatment Not Indicated
--- NOTE | 2024-11-12 10:16 | PCM.POST.ANE ---
Anesthesia: Postop Eval I Current Vital Signs Temperature: 98.3 F Pulse Rate: 53 Blood Pressure: 123/66 Respiratory Rate: 18 Pulse Ox: 96 Oxygen Delivery Method: Room Air Assessment Airway patent: Yes Spontaneous unlabored respirations: Yes Mental status: Awake and Calm nausea: No Vomiting: No Anesthesia Complication: No Fluid Hydration Crystalloid volume administer (ml): 1,300 Total IV fluid infused: 1,300 Progress Note Anesthesia document: Postop Eval 1 completed: Yes
--- NOTE | 2024-11-12 16:19 | POSTOPAN2_ITS ---
Anesthesia Postop Eval I Sum Postop Eval Completion status Anesthesia document: Postop Eval 1 completed: Yes Anesthesia Postop Eval I Summary Anesthesia Postop Eval I Summary: Anesthesia Postop Eval I: Assessment Summary Airway patent Yes 11/12/24 10:18 AFTER SCHOOL PROGRAM COORDINATOR.JDEF Spontaneous unlabored Yes 11/12/24 10:18 AFTER SCHOOL PROGRAM COORDINATOR.JDEF respirations Mental status Awake,Calm 11/12/24 10:18 AFTER SCHOOL PROGRAM COORDINATOR.JDEF nausea No 11/12/24 10:18 AFTER SCHOOL PROGRAM COORDINATOR.JDEF Vomiting No 11/12/24 10:18 AFTER SCHOOL PROGRAM COORDINATOR.JDEF Anesthesia Postop Eval I: Fluid Summary Crystalloid volume administer 1,300 11/12/24 10:18 AFTER SCHOOL PROGRAM COORDINATOR.JDEF (ml) Colloids volume administered ( ml) Blood Product volume administered (ml) Total IV fluid infused 1,300 11/12/24 10:18 AFTER SCHOOL PROGRAM COORDINATOR.JDEF Anesthesia Postop Eval I: Summary Notes Anesthesia Complication No 11/12/24 10:18 AFTER SCHOOL PROGRAM COORDINATOR.JDEF Anesthesia Complication Comment: Post-operative progress note Anesthesia: Postop Eval II Evaluation Mental status: Awake Pain Level: 2 nausea: No Vomiting: No
--- NOTE | 2024-11-12 16:19 | PCM.POSTANE2 ---
Anesthesia Postop Eval I Sum Postop Eval Completion status Anesthesia document: Postop Eval 1 completed: Yes Anesthesia Postop Eval I Summary Anesthesia Postop Eval I Summary: Anesthesia Postop Eval I: Assessment Summary Airway patent Yes 11/12/24 10:18 NURSE RN [email or web address] Spontaneous unlabored Yes 11/12/24 10:18 NURSE RN [email or web address] respirations Mental status Awake,Calm 11/12/24 10:18 NURSE RN [email or web address] nausea No 11/12/24 10:18 NURSE RN [email or web address] Vomiting No 11/12/24 10:18 NURSE RN [email or web address] Anesthesia Postop Eval I: Fluid Summary Crystalloid volume administer 1,300 11/12/24 10:18 NURSE RN [email or web address] (ml) Colloids volume administered ( ml) Blood Product volume administered (ml) Total IV fluid infused 1,300 11/12/24 10:18 NURSE RN [email or web address] Anesthesia Postop Eval I: Summary Notes Anesthesia Complication No 11/12/24 10:18 NURSE RN BSN.JDEF Anesthesia Complication Comment: Post-operative progress note Anesthesia: Postop Eval II Evaluation Mental status: Awake Pain Level: 2 nausea: No Vomiting: No
== END 2024-11-12 12:59 | disposition home or self-care (01) ==
LOC: SDC 05:49 → AC 05:50
PROVIDERS: Anesthesiology; PCP Family Medicine; Referring Provider Surgery; Visit Provider Surgery
PROC: (CPT 49650; principal; 2024-11-12 07:10)
DX: K40.20 Bilateral inguinal hernia, without obstruction or gangrene, not specified as recurrent (principal); I10 Essential (primary) hypertension; K66.0 Peritoneal adhesions (postprocedural) (postinfection); E78.00 Pure hypercholesterolemia, unspecified; E03.9 Hypothyroidism, unspecified; Z79.890 Hormone replacement therapy; Z79.899 Other long term (current) drug therapy; K21.9 Gastro-esophageal reflux disease without esophagitis
CPT/HCPCS: 49650; S2900; 00840; 36415; 80048; 84443; 85025; C1781; J2405